=== PATIENT | female | born 1945 | race Caucasian/White ===

== ENCOUNTER 2016-07-27 12:32 | Emergency (ER) | payer MEDICARE ==
--- NOTE | 2016-07-27 13:19 | ER Document Report ---
ED General - General Chief Complaint: Shortness Of Breath Stated Complaint: SHORTNESS OF BREATH Time seen by provider: 13:15 Mode of Arrival: Medic Information source: Patient Notes: This is a pleasant 70-year-old female with a history of morbid obesity,VTE( Coumadin), CHF (metolazone, bumetanide (, diabetes (metformin), hypertension ( atenolol,), dyslipidemia, hypothyroidism. The patient is brought in by ambulance because of dyspnea on exertion, cough, shortness of breath, increased swelling over the last 2 weeks progressively getting worse. TRAVEL OUTSIDE OF THE [place] IN LAST 30 DAYS: No - HPI Onset: Last week Onset/Duration: Gradual Quality of pain: No pain Severity: None Pain Level: Denies Associated symptoms: Nonproductive cough, Shortness of breath. denies: Chills, Fever Exacerbated by: Denies Relieved by: Denies Similar symptoms previously: Yes Recently seen / treated by doctor: Yes - Related Data Allergies/Adverse Reactions: codeine [Codeine] Allergy (Mild, Unverified 04/05/14 19:52) VOMITING Past Medical History - General Information source: Patient - Social History Smoking Status: Current Every Day Smoker Cigarette use (# per day): Yes - pack and a half a day Chew tobacco use (# tins/day): No Smoking Education Provided: No Frequency of alcohol use: None Drug Abuse: None Lives with: Family Family History: Reviewed & Not Pertinent Patient has suicidal ideation: No Patient has homicidal ideation: No - Past Medical History Cardiac Medical History: Reports: Hx Hypertension Pulmonary Medical History: Reports: Hx COPD, Other - Obstructive sleep apnea EENT Medical History: Reports: None Neurological Medical History: Reports: None Endocrine Medical History: Reports: None Renal/ Medical History: Denies: Hx Peritoneal Dialysis Malignancy Medical History: Reports: None GI Medical History: Reports: None Musculoskeltal Medical History: Reports None Skin Medical History: Reports None Psychiatric Medical History: Reports: None Traumatic Medical History: Reports: None Infectious Medical History: Reports: None Past Surgical History: Reports: Hx Orthopedic Surgery, Hx Tonsillectomy Review of Systems - Review of Systems Constitutional: denies: Chills, Fever EENT: No symptoms reported Cardiovascular: No symptoms reported Respiratory: See HPI Gastrointestinal: No symptoms reported Genitourinary: No symptoms reported Female Genitourinary: No symptoms reported Musculoskeletal: No symptoms reported Skin: See HPI Hematologic/Lymphatic: No symptoms reported Neurological/Psychological: No symptoms reported Physical Exam - Vital signs Vitals: Resp Pulse Ox 33 H 93 07/27/16 13:06 07/27/16 13:06 Notes: Physical exam: GENERAL: Pleasant 70-year-old female, alert and oriented 3, no acute distress. HEAD: Atraumatic, normocephalic. EYES: Pupils equal round and reactive to light, extraocular movements intact, sclera anicteric, conjunctiva are normal. ENT: TMs normal, nares patent, oropharynx clear without exudates. Moist mucous membranes. NECK: Normal range of motion, supple LUNGS: Decreased breath sounds bilaterally Breasts: Patient does have some dependent edema to the left breast, no erythema or tenderness. HEART: Regular rate and rhythm without murmurs, rubs or gallops. ABDOMEN: Soft, nontender, normoactive bowel sounds. No guarding, no rebound. No masses appreciated. EXTREMITIES: Nonpitting edema in the lower extremities with chronic vascular changes to the lower extremities. NEUROLOGICAL: Cranial nerves II through XII grossly intact. Normal speech, normal gait. PSYCH: Normal mood, normal affect. SKIN: Warm, Dry, normal turgor, no rashes or lesions noted. Course - Re-evaluation Re-evalutation: 07/27/16 18:41 I discussed case with Dr. Mcdaniels: He did recommend some IV Lasix in the emergency room and is willing to see the patient tomorrow in his office. Given the heart rate which is a little on the low side, we will cut the atenolol in half. Also , the Coumadin level was a slight bit high and we will hold that for 2 days. 07/27/16 18:44 Note: The patient does have a heart rate of 55. It looks like she's had some bradycardia in the past at night during her obstructive sleep apnea study. We will reduce the atenolol in half to allow the heart rate to come up a little bit more and maybe that will improve her energy. I think much of the swelling that she's having on the left side is because she sleeps predominantly on her left side. She is doing well after the IV Lasix and has gone to the bathroom. I've given her the instructions and told her to come back if she has any problems. - Vital Signs Vital signs: Temp Pulse Resp BP Pulse Ox 98.3 F 54 L 27 H 111/94 H 82 L 07/27/16 13:10 07/27/16 13:10 07/27/16 16:01 07/27/16 16:00 07/27/16 16:01 - Laboratory Result Diagrams: 07/27/16 13:10 07/27/16 13:10 Laboratory results interpreted by me: 07/27/16 07/27/16 07/27/16 13:10 13:10 13:10 RBC 5.59 H Hgb 17.9 H Hct 57.5 H MCV 103 H MCHC 31.2 L RDW 17.0 H Plt Count 98 L Lymphocytes % 12.6 L PT VBG pH VBG pCO2 Potassium 5.5 H Carbon Dioxide 31 H BUN 54 H Creatinine 1.46 H Est GFR ( Amer) 43 L Est GFR (Non-Af Amer) 35 L NT-Pro-B Natriuret Pep 8880 H Total Protein 5.8 L Albumin 3.2 L 07/27/16 07/27/16 13:10 13:10 RBC Hgb Hct MCV MCHC RDW Plt Count Lymphocytes % PT 43.4 H VBG pH 7.25 L VBG pCO2 74.2 H* Potassium Carbon Dioxide BUN Creatinine Est GFR ( Amer) Est GFR (Non-Af Amer) NT-Pro-B Natriuret Pep Total Protein Albumin - Diagnostic Test Radiology reviewed: Image reviewed, Reports reviewed - Chest x-ray shows cardiomegaly. It is limited due to the patient's body habitus. - EKG Interpretation by Me Rhythm: A.Fib - EKG shows atrial fibrillation with a ventricular rate of 55, there is low voltage. Discharge - Discharge Clinical Impression: dyspnea, OBSTRUCT SLEEP APNEA Condition: Stable Disposition: HOME, SELF-CARE Additional Instructions: Recommendations: Dr. Mcdaniels would like to see you in the office tomorrow the day after. He wants you to cut the Atenolol in half to 50 mg twice daily. He also wants you to not take the warfarin (Coumadin) for 2 days. Your Coumadin level was 4.3 (a bit on the high side). Continue all other medicines. Return to the emergency room for worsening symptoms. Referrals: NATALIA COX MD [Primary Care Provider] - Follow up tomorrow
[2016-07-27 13:36] LABS: ABSOLUTE BASOPHILS # (AUTO) 0.1 10^3/uL (0.0-0.2); ABSOLUTE EOSINOPHILS # (AUTO) 0.1 10^3/uL (0.0-0.6); ABSOLUTE MONOCYTES (AUTO) 0.5 10^3/uL (0.1-1.4); ABSOLUTE NEUT (AUTO) 5.9 10^3/uL (1.7-8.2); BASOPHILS % (AUTO) 1.1 % (0-2); EOSINOPHILS % (AUTO) 1.8 % (0-6); HEMATOCRIT 57.5 % (36.0-47.0); HEMOGLOBIN 17.9 g/dL (12.0-15.5); HGB HCT DIFFERENCE -3.8; LYMPHOCYTES % (AUTO) 12.6 % (13-45); MEAN CORPUSCULAR HGB CONC 31.2 g/dL (32.0-36.0); MEAN CORPUSCULAR VOLUME 103 fl (80-97); RED BLOOD COUNT 5.59 10^6/uL (3.72-5.28); SEGMENTED NEUTROPHILS % (AUTO) 77.5 % (42-78); WHITE BLOOD COUNT 7.6 10^3/uL (4.0-10.5)
[2016-07-27 13:37] LABS: VENOUS BLOOD BASE EXCESS 1.3 mmol/L; VENOUS BLOOD HCO3 31.8 mmol/L (20-32); VENOUS BLOOD PH 7.25 (7.30-7.42)
[2016-07-27 13:41] LABS: PROTHROMBIN TIME 43.4 SEC (11.4-15.4)
[2016-07-27 13:47] LABS: VENOUS BLOOD PCO2 74.2 mmHg (35-63)
[2016-07-27 13:53] LABS: ALANINE AMINOTRANSFERASE 20 U/L (9-52); ALBUMIN 3.2 g/dL (3.5-5.0); ALKALINE PHOSPHATASE 112 U/L (38-126); ANION GAP 11 (5-19); ASPARTATE AMINO TRANSFERASE 14 U/L (14-36); BILIRUBIN,TOTAL 0.7 mg/dL (0.2-1.3); BLOOD UREA NITROGEN 54 mg/dL (7-20); CALCIUM 8.7 mg/dL (8.4-10.2); CARBON DIOXIDE 31 mmol/L (22-30); CHLORIDE 101 mmol/L (98-107); CREATINE KINASE 30 U/L (30-135); CREATININE RESULT 1.46 mg/dL (0.52-1.25); GLUCOSE 95 mg/dL (75-110); POTASSIUM 5.5 mmol/L (3.6-5.0); SODIUM 142.8 mmol/L (137-145); TOTAL PROTEIN 5.8 g/dL (6.3-8.2)
[2016-07-27 14:05] LABS: CREATINE KINASE MB 1.29 ng/mL (<4.55)
[2016-07-27 14:09] LABS: TROPONIN I < 0.012 ng/mL
[2016-07-27] MEDS ORDERED: IPRATROPIUM/ALBUTEROL 0.5-2.5 MG/3 ML AMPUL NEB ONE (16:20)
[2016-07-27] MEDS ORDERED: FUROSEMIDE INJ/PF 40 MG/4 ML SDV IV ONE ×2 (16:28)
--- NOTE | 2016-07-27 18:01 | EKG REPORT ---
SEVERITY:- ABNORMAL ECG - ATRIAL FIBRILLATION RIGHT AXIS DEVIATION LOW VOLTAGE THROUGHOUT BORDERLINE T ABNORMALITIES, ANTERIOR LEADS : Confirmed by: Clem Dougherty MD 27-Jul-2016 18:00:48
[2016-07-27 19:12] VITALS: BP 120/74
== END 2016-07-27 19:13 | disposition home or self-care (01) ==
LOC: ER 12:32
DX: G47.33 Obstructive sleep apnea (adult) (pediatric) (principal); I11.0 Hypertensive heart disease with heart failure; I50.9 Heart failure, unspecified; J44.9 Chronic obstructive pulmonary disease, unspecified; I48.91 Unspecified atrial fibrillation; R06.02 Shortness of breath; R05 Cough; R06.09 Other forms of dyspnea; R60.9 Edema, unspecified; E11.9 Type 2 diabetes mellitus without complications; I74.9 Embolism and thrombosis of unspecified artery; F17.210 Nicotine dependence, cigarettes, uncomplicated; E66.01 Morbid (severe) obesity due to excess calories; Z68.42 Body mass index [BMI] 45.0-49.9, adult; Z79.01 Long term (current) use of anticoagulants; Z79.84 Long term (current) use of oral hypoglycemic drugs; Z79.899 Other long term (current) drug therapy; Z88.5 Allergy status to narcotic agent
CPT/HCPCS: 93005; 94640; 99285; 96374; 36415; 82553; 82550; 83605; 85025; 85610; 80053; 84484; 82803; 83880; 71010; 93010; J1940; A9270; J7620

== ENCOUNTER 2016-10-14 17:25 | Inpatient (IN) | payer MEDICARE ==
--- NOTE | 2016-10-14 17:41 | ER Document Report ---
ED Respiratory Problem - General Stated Complaint: SHORTNESS OF BREATH Mode of Arrival: Medic Information source: Patient, Emergency Med Personnel TRAVEL OUTSIDE OF THE [place] IN LAST 30 DAYS: No - HPI Patient complains to provider of: Short of breath Onset: Yesterday Duration: Continuous Initiating Event: No: Allergy, Aspiration/Choking, Exertion, Exposure to chemicals, Exposure to dust, Exposure to fumes, Exposure to mold, Exposure to smoke, Out of meds Quality of pain: No pain Severity: Mild Context: Hx CHF, Hx COPD. denies: Recent cardiac event, Recent surgery, Smoker Short of Breath: Mild Chest pain/discomfort: Center Cough: Nonproductive Sputum amount: None Associated symptoms: Chest pain/discomfort - SORENESS, Chills, Cough - GAGS W/ COUGH, Fever - SUBJECTIVE FEVER, Short of breath, Sweaty, Other - WEAKNESS, UNABLE TO AMBULATE EVEN W/ ASSIST Similar symptoms previously: Yes Recently seen / treated by doctor: Yes - DR. Laboy Notes: Patient was seen by her PCP last week, who told her daily dose of Lasix for several days. She resumed taking her usual dose 2 days ago. - Related Data Allergies/Adverse Reactions: codeine [Codeine] Allergy (Mild, Unverified 04/05/14 19:52) VOMITING Past Medical History - General Information source: Patient - Social History Smoking Status: Never Smoker Cigarette use (# per day): No Chew tobacco use (# tins/day): No Smoking Education Provided: No Frequency of alcohol use: None Drug Abuse: None Lives with: Friend Family History: Reviewed & Not Pertinent Patient has suicidal ideation: No Patient has homicidal ideation: No - Past Medical History Cardiac Medical History: Reports: Hx Atrial Fibrillation, Hx Hypertension Pulmonary Medical History: Reports: Hx COPD EENT Medical History: Reports: None Neurological Medical History: Reports: None Endocrine Medical History: Reports: None Renal/ Medical History: Reports: None. Denies: Hx Peritoneal Dialysis Malignancy Medical History: Reports: None GI Medical History: Reports: None Musculoskeltal Medical History: Reports Hx Arthritis Psychiatric Medical History: Reports: None Past Surgical History: Reports: Hx Orthopedic Surgery, Hx Tonsillectomy Review of Systems - Review of Systems Constitutional: Chills, Fever - SUBJECTIVE, Weakness EENT: No symptoms reported Cardiovascular: Dyspnea Respiratory: Cough, Short of breath Gastrointestinal: No symptoms reported Genitourinary: No symptoms reported Female Genitourinary: Post menopausal Musculoskeletal: No symptoms reported Skin: No symptoms reported Neurological/Psychological: No symptoms reported -: Yes All other systems reviewed and negative Physical Exam - Vital signs Vitals: Temp Pulse Resp BP Pulse Ox 100.2 F 56 L 24 H 105/58 L 88 L 10/14/16 18:02 10/14/16 18:02 10/14/16 18:02 10/14/16 18:02 10/14/16 18:02 Interpretation: Bradycardic, Hypoxic, Tachypneic, Febrile - "LOW GRADE" - General General appearance: Appears well, Alert In distress: None - HEENT Head: Normocephalic Eyes: Normal Conjunctiva: Normal Ears: Normal Nasal: Normal Mouth/Lips: Normal Mucous membranes: Normal Pharynx: Normal Neck: Normal, Other - OBESE - Respiratory Respiratory status: No respiratory distress, Tachypnea Chest status: Nontender Breath sounds: Rales - BILAT. DEPENDENT AREAS - Cardiovascular Rhythm: Irregularly irregular, Bradycardia - Abdominal Inspection: Morbidly Obese - Extremities General upper extremity: Normal inspection General lower extremity: Edema - 2+ BILAT.. No: Normal inspection - VENOUS STASIS DERMATITIS BILAT. - Neurological Neuro grossly intact: Yes Cognition: Normal Orientation: AAOx4 - Psychological Associated symptoms: Normal affect, Normal mood - Skin Skin Temperature: Warm Skin Moisture: Dry Skin Color: Normal Skin Turgor: Elastic Skin irregularity: other - VENOUS STASIS DERMATITIS, BILAT. L.E.'s Course - Vital Signs Vital signs: Temp Pulse Resp BP Pulse Ox 100.2 F 56 L 24 H 105/58 L 88 L 10/14/16 18:02 10/14/16 18:02 10/14/16 18:02 10/14/16 18:02 10/14/16 18:02 - Laboratory Result Diagrams: 10/14/16 18:00 10/14/16 18:00 Laboratory results interpreted by me: 10/14/16 10/14/16 10/14/16 18:00 18:00 18:00 WBC 13.0 H RDW 17.6 H Plt Count 83 L Seg Neuts % (Manual) 89 H Lymphocytes % (Manual) 4 L Abs Neuts (Manual) 11.6 H PT Sodium 133.9 L Potassium 3.2 L Chloride 86 L Carbon Dioxide 32 H BUN 64 H Est GFR ( Amer) 53 L Est GFR (Non-Af Amer) 44 L Glucose 134 H Total Bilirubin 1.4 H Direct Bilirubin 0.6 H NT-Pro-B Natriuret Pep 32192 H Total Protein 5.9 L Albumin 3.3 L Urine Protein Urine Urobilinogen Urine Ascorbic Acid 10/14/16 10/14/16 18:00 19:25 WBC RDW Plt Count Seg Neuts % (Manual) Lymphocytes % (Manual) Abs Neuts (Manual) PT 44.7 H Sodium Potassium Chloride Carbon Dioxide BUN Est GFR ( Amer) Est GFR (Non-Af Amer) Glucose Total Bilirubin Direct Bilirubin NT-Pro-B Natriuret Pep Total Protein Albumin Urine Protein 100 H Urine Urobilinogen 2.0 H Urine Ascorbic Acid 40 H - Diagnostic Test Radiology reviewed: Image reviewed, Reports reviewed - EKG Interpretation by [place] EKG shows normal: abnormal: Sinus rhythm Rate: Bradycardia Rhythm: A.Fib Voltage: Decreased voltage, Throughout P Waves: Absent When compared to previous EKG there are: No significant change - Consults DR. KAPLAN Time consulted: 20:40 Consulted provider: will come to ER Discharge - Discharge Clinical Impression: Hypoxemia, Hypokalemia Congestive heart failure Qualifiers: Congestive heart failure type: unspecified congestive heart failure type Congestive heart failure chronicity: acute on chronic Qualified Code(s): I50.9 - Heart failure, unspecified Condition: Fair Disposition: ADMITTED INPATIENT Admitting Provider: Hospitalist Unit Admitted: Telemetry
[2016-10-14 18:18] LABS: HEMATOCRIT 46.1 % (36.0-47.0); HEMOGLOBIN 15.2 g/dL (12.0-15.5); HGB HCT DIFFERENCE -0.5; MEAN CORPUSCULAR HEMOGLOBIN 30.7 pg (27.0-33.4); MEAN CORPUSCULAR VOLUME 93 fl (80-97); RED BLOOD COUNT 4.96 10^6/uL (3.72-5.28); RED CELL DISTRIBUTION WIDTH 17.6 % (11.5-14.0)
[2016-10-14 18:33] LABS: BASOPHILS % (MANUAL) 0 % (0-2); EOSINOPHILS % (MANUAL) 0 % (0-6); LYMPHOCYTES % (MANUAL) 4 % (13-45); TOTAL CELLS COUNTED 100
[2016-10-14 18:36] LABS: ANISOCYTOSIS 1+; POLYCHROMASIA SLIGHT; TOXIC GRANULATION SLIGHT
[2016-10-14 18:38] LABS: ALANINE AMINOTRANSFERASE 21 U/L (9-52); ALBUMIN 3.3 g/dL (3.5-5.0); ALKALINE PHOSPHATASE 111 U/L (38-126); ANION GAP 16 (5-19); ASPARTATE AMINO TRANSFERASE 23 U/L (14-36); BILIRUBIN,DIRECT 0.6 mg/dL (0.0-0.4); BILIRUBIN,TOTAL 1.4 mg/dL (0.2-1.3); BLOOD UREA NITROGEN 64 mg/dL (7-20); CALCIUM 8.9 mg/dL (8.4-10.2); CARBON DIOXIDE 32 mmol/L (22-30); CHLORIDE 86 mmol/L (98-107); CREATINE KINASE 37 U/L (30-135); CREATININE RESULT 1.21 mg/dL (0.52-1.25); GLUCOSE 134 mg/dL (75-110); MAGNESIUM 1.8 mg/dL (1.6-2.3); POTASSIUM 3.2 mmol/L (3.6-5.0); SODIUM 133.9 mmol/L (137-145); TOTAL PROTEIN 5.9 g/dL (6.3-8.2)
[2016-10-14 18:51] LABS: TROPONIN I 0.029 ng/mL
[2016-10-14 18:52] LABS: CREATINE KINASE MB < 0.22 ng/mL (<4.55)
[2016-10-14] MEDS ORDERED: FUROSEMIDE INJ/PF 100 MG/10 ML SDV IV ONE (19:12)
[2016-10-14] MEDS ORDERED: POTASSIUM CHLORIDE 10 MEQ TABLET.SA PO ONE (19:12)
[2016-10-14 19:44] LABS: APPEARANCE,URINE SLIGHTLY-CLOUDY; BILIRUBIN,URINE NEGATIVE (NEGATIVE); GLUCOSE, URINE NEGATIVE (NEGATIVE); KETONES,URINE NEGATIVE (NEGATIVE); LEUKOCYTE ESTERASE,URINE NEGATIVE (NEGATIVE); NITRITE,URINE NEGATIVE (NEGATIVE); PROTEIN,URINE 100 mg/dL (NEGATIVE); URINE SPECIFIC GRAVITY 1.013
[2016-10-14 20:06] LABS: PROTHROMBIN TIME 44.7 SEC (11.4-15.4)
--- NOTE | 2016-10-14 22:05 | EKG REPORT ---
SEVERITY:- ABNORMAL ECG - ATRIAL FIBRILLATION, V-RATE 51-65 RBBB AND LPFB : Confirmed by: Denisha Espinal MD 14-Oct-2016 22:04:50
[2016-10-14] MEDS ORDERED: POTASSIUM CHLORIDE 20 MEQ/15 ML UDCUP PO ONE (22:14)
[2016-10-14] MEDS ORDERED: ALBUTEROL SULFATE 0.083% NEB 2.5 MG/3 ML AMPUL NEB PRN (22:21)
[2016-10-14] MEDS ORDERED: GUAIFENESIN SYRP 200 MG/10 ML UDC PO PRN (22:21)
[2016-10-14] MEDS ORDERED: NICOTINE 21 MG/24 HR PATCH.TD24 TD PRN (22:35)
--- NOTE | 2016-10-14 22:47 | PDOC H&P ---
History of Present Illness Admission Date/PCP: 10/14/16 21:12 NATALIA COX, Patient complains of: SOB History of Present Illness: MARIANO HENRY is a 71 year old morbidly obese female, with reported noncompliance according to primary care provider's office notes, copy of which are reviewed, along with underlying congestive heart failure, uncertain if systolic and/or diastolic, nonhome O2 dependent COPD, obstructive sleep apnea, with CPAP not having been ordered as of yet, according to patient, atrial fibrillation, along with history of DVT, on chronic Coumadin, hypothyroidism, hyperlipidemia, chronic venous stasis disease of bilateral lower extremities, and arthritis who presents to the emergency room for evaluation of possible 24- hour history of progressive shortness of breath, in particular with much of any exertion. There has been no chest or abdominal pain, diarrhea or dysuria. She's had shaking chills intermittently over the last 2 days, with fever to 101.5, along with increased sputum production, yellow in color. No antibiotic use or hospitalization over the last 3 months. Over the last week, she doubled her Lasix dose to 40 mg twice a day due to weight gain and retaining fluid. Resumed her usual 40 mg daily dose 2 days ago. Patient has been discussed with emergency room physician who evaluated the patient. . Laboratory results are listed in [facility] and are reviewed. X-ray summary results are listed below, with full report(s) reviewed. . EKG reviewed. And compared to a tracing from July 27 of this year. Social history/personal habits: Single. No children. 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 One and a half packs of cigarettes per day. Fifth of scotch per week. No illicit drug use. Allergies/adverse reactions are listed in [facility] and are reviewed. Home medications Home medications initially autopopulated into [employer] may not accurately reflect patient's true medications, dosages, and/or frequencies. Unfortunately, patient uncertain of all her medications/dosages/frequencies. REVIEW OF SYSTEMS: Constitutional: See history and present illness. Eyes: Wears glasses. ENT: No swallowing problems or complaints. Partial hearing loss. Pulmonary: See history and present illness. Cardiovascular: No current complaints, including chest pain. Gastrointestinal: No current complaints, including nausea or vomiting. Skin: Chronic venous stasis changes, bilateral lower extremities. Hematologic: Easy bruising. Neurologic: Chronic numbness and tingling of her lower extremities. Musculoskeletal: Joint pain from arthritis. Psychiatric: No current complaints, including anxiety or depression. Endocrine: No current complaints, including polyuria. Genitourinary: No current complaints, including dysuria. PHYSICAL EXAMINATION: 5 feet 5 inches tall. 133.4 kg. BMI 48.9 kg/m. Blood pressure 135/75. Pulse 52 and regular. 94% saturation on 2 L oxygen per nasal cannula. Temp 100.2 earlier; skin feels normothermic at present. Morbidly obese otherwise well-developed female appearing approximately her stated age. Pleasant awake alert and cooperative. No obvious distress other than perhaps mildly anxious. A rather stoic individual. Skin is warm and dry. No grossly obvious evidence of rash in areas of skin examined. No subcutaneous nodules palpated. Chronic venous stasis changes extending from just below the knee through the dorsum of her feet bilaterally. No evidence of cellulitis. She does have a small slightly raised nodule on the upper anteromedial aspect of her left calf, approximately 3 x 6 mm, mobile, non- tender, without expressible discharge. States it has been there for "quite some time." ENT: Hearing grossly normal to normal conversation. Tongue midline on protrusion pink and slightly moist. Eyes: No scleral icterus. Pupils equal and reactive to light at 4 mm. [place] conjunctivae. Neck is supple and nontender to gentle active range of motion and palpation. Midline trachea. No palpable thyroid nodule mass enlargement or tenderness. Lymphatic: No palpable cervical or clavicular nodes. Neck and lymphatic exams limited by patient body habitus. Psychiatric: Reasonable insight into acute and chronic medical issues. Oriented to time location and why here. Lungs: Auscultation reveals clear and equal breath sounds bilaterally. No use of accessory respiratory muscles. Cardiovascular: Heart regular rate and rhythm, without gallop murmur or rub. No carotid or abdominal aortic bruits. Slight bilateral symmetric nonpitting calf ankle and pedal edema. Faintly palpable dorsalis pedis pulses. Abdomen:soft, rather obese, nontender with positive bowel sounds. Unable to adequately evaluate abdomen for masses or organomegaly due to Body habitus Extremities: Feet are warm and dry. No calf tenderness to compression. See comments under "skin" above Neurologic: Moves upper extremities grossly normally. Patellar reflexes absent. Absent Babinski. Light touch is decreased at feet, a chronic finding according to patient.. Dorsiflexion and plantarflexion of feet 5 / 5 and symmetric. Past Medical History Cardiac Medical History: Reports: Atrial Fibrillation, Congestive Heart Failure , DVT, Hyperlipidema, Hypertension Denies: Pulmonary Embolism Pulmonary Medical History: Reports: Chronic Obstructive Pulmonary Disease (COPD) , Sleep Apnea EENT Medical History: Reports: None Neurological Medical History: Reports: None Denies: Hemorrhagic CVA, Ischemic CVA, Seizures Endocrine Medical History: Reports: None, Hypothyroidism Denies: Diabetes Mellitus Type 1, Diabetes Mellitus Type 2, Hyperthyroidism Renal/ Medical History: Reports: None Malignancy Medical History: Reports: None GI Medical History: Reports: None Denies: Cirrhosis, Hepatitis, Peptic Ulcer Disease Musculoskeltal Medical History: Reports: Arthritis Psychiatric Medical History: Reports: None, Alcohol Dependency, Tobacco Dependency Denies: Depression, General Anxiety Disorder, Substance Abuse Infectious Medical History: Denies: Clostridium Difficile, Hepatitis B, Hepatitis C, Methicillin- Resistant Staph Aureus Past Surgical History Past Surgical History: Reports: Orthopedic Surgery, Tonsillectomy Social History Information Source: Patient, Emergency Med Personnel, [facility] Records Lives with: Friend Smoking Status: Current Every Day Smoker Frequency of Alcohol Use: Heavy Drugs: None - Advance Directive Resuscitation Status: Full Code Surrogate healthcare decision maker:: Her 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-in 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 and 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 Olivia De La Cruz Family History Family History: Reviewed & Not Pertinent Parental Family History Reviewed: Yes Children Family History Reviewed: NA Sibling(s) Family History Reviewed.: Yes Medication/Allergy Home Medications: Aspirin [Aspirin EC] 81 mg PO DAILY 10/15/16 Atenolol [Tenormin 50 mg Tablet] 50 mg PO DAILY 10/15/16 Atorvastatin Calcium [Lipitor 40 mg Tablet] 40 mg PO DAILY 10/15/16 Furosemide [Lasix] 40 mg PO BID 10/15/16 Gabapentin [Neurontin 300 mg Capsule] 300 mg PO BID 10/15/16 Hydrocortisone/Oatmeal/Aloe/E [Hydrocortisone 1% Cream] 28.4 gm TP BID 10/15/16 Levothyroxine Sodium [Synthroid 0.05 mg Tablet] 0.05 mg PO DAILY 10/15/16 Levothyroxine Sodium [Synthroid 0.1 mg Tablet] 0.1 mg PO DAILY 10/15/16 Metolazone [Zaroxolyn 5 Mg Tablet] 5 mg PO NOON 10/15/16 Potassium Chloride [Klor-Con 10 Meq Tablet.sa] 20 meq PO BID 10/15/16 Warfarin Sodium [Coumadin 5 mg Tablet] 5 mg PO DAILY 10/15/16 Allergies/Adverse Reactions: codeine [Codeine] Adverse Reaction (Mild, Unverified 10/14/16 22:11) VOMITING morphine Adverse Reaction (Verified 10/14/16 22:11) oxycodone [From Percocet] Adverse Reaction (Verified 10/14/16 22:11) prednisone Adverse Reaction (Verified 10/14/16 22:11) Physical Exam Vital Signs: Temp Pulse Resp BP Pulse Ox 100.2 F 56 L 18 135/75 H 93 10/14/16 18:02 10/14/16 18:02 10/14/16 20:00 10/14/16 21:46 10/14/16 21:46 Results Impressions: Chest X-Ray 10/14/16 17:44 IMPRESSION: CARDIAC ENLARGEMENT. MILD VASCULAR CONGESTION. Assessment & Plan - Diagnosis (1) Tobacco dependency Is this a current diagnosis for this admission?: YesPlan: . When necessary Nicotine patch. (2) Alcohol dependence Qualifiers: Substance use status: uncomplicated Qualified Code(s): F10.20 - Alcohol dependence, uncomplicated Is this a current diagnosis for this admission?: YesPlan: Daily multivitamin, thiamine, and folic acid. Observe for evidence of alcohol withdrawal. (3) CHF exacerbation Qualifiers: Congestive heart failure type: unspecified congestive heart failure type Qualified Code(s): I50.9 - Heart failure, unspecified Is this a current diagnosis for this admission?: YesPlan: Parenteral Lasix. Cardiac diet. Further workup at discretion of primary care provider. Repeat troponin. (4) Elevated LFTs Is this a current diagnosis for this admission?: YesPlan: Uncertain etiology. Perhaps due to underlying alcohol use, and/or congestive heart failure. Repeat chem 12. (5) Hypokalemia Is this a current diagnosis for this admission?: YesPlan: Potassium supplementation, along with follow-up chemistry. (6) Leukocytosis Qualifiers: Leukocytosis type: unspecified Qualified Code(s): D72.829 - Elevated white blood cell count, unspecified Is this a current diagnosis for this admission?: YesPlan: Uncertain etiology, but suspect due to underlying suspected COPD exacerbation. Follow-up CBC with differential. (7) Supratherapeutic INR Is this a current diagnosis for this admission?: YesPlan: Hold Coumadin. Follow-up PT/INR. (8) COPD exacerbation Is this a current diagnosis for this admission?: YesPlan: Patient will be admitted under COPD exacerbation protocol. Incentive spirometry twice a day. Scheduled DuoNeb's. PRN albuterol nebs Antibiotics will consist of intravenous Zithromax, along with Rocephin.. I strongly encouraged patient to notify staff should patient feel that respiratory status is worsening. Patient is a full code. I have strongly encouraged patient not to get out of bed without notifying staff , , to avoid a fall with injury. Knee high SCDs for DVT prophylaxis, ; with patient on systemic anticoagulation, no need for Lovenox or heparin at this point in time. Impression and plans were discussed with patient, who concurs. Time spent in evaluation and management of patient: 68 minutes. (9) Atrial fibrillation Qualifiers: Atrial fibrillation type: chronic Qualified Code(s): I48.2 - Chronic atrial fibrillation Is this a current diagnosis for this admission?: YesPlan: Hemodynamically stable at present. Resume home medications as appropriate once these have been determined and reviewed. (10) CKD (chronic kidney disease), stage III Is this a current diagnosis for this admission?: Yes (11) Thrombocytopenia Is this a current diagnosis for this admission?: YesPlan: Suspect due at least partially due to her alcohol use. Follow-up CBC. - Inpatient Certification Based on my medical assessment, after consideration of the patient's comorbidities, presenting symptoms, or acuity I expect that the services needed warrant INPATIENT care.: Yes I certify that my determination is in accordance with my understanding of Medicare's requirements for reasonable and necessary INPATIENT services [42 CFR 412.3e].: Yes Medical Necessity: Need Close Monitoring Due to Risk of Patient Decompensation, Need For Continuous Telemetry Monitoring, Need for Nebulizer Therapy and Monitoring of Response, Need for IV Antibiotics, Risk of Complication if Not Cared For in Hospital, Risk of Diagnosis Which Will Require Inpatient Eval/Care/ Monitoring Post Hospital Care: D/C or Transfer Summary
[2016-10-14] MEDS ORDERED: CEFTRIAXONE 1 GM/D5W RTU 1 GM/50 ML RTUPB IV SCH (23:00)
[2016-10-14] MEDS ORDERED: AZITHROMYCIN 500 MG in DEXTROSE 5%-WATER 250 ML IV SCH (23:00)
[2016-10-15 07:15] LABS: HEMATOCRIT 44.8 % (36.0-47.0); HEMOGLOBIN 14.6 g/dL (12.0-15.5); MEAN CORPUSCULAR HEMOGLOBIN 30.4 pg (27.0-33.4); MEAN CORPUSCULAR HGB CONC 32.5 g/dL (32.0-36.0); MEAN CORPUSCULAR VOLUME 94 fl (80-97); RED CELL DISTRIBUTION WIDTH 17.3 % (11.5-14.0); WHITE BLOOD COUNT 13.4 10^3/uL (4.0-10.5)
[2016-10-15 07:29] LABS: PROTHROMBIN TIME 42.2 SEC (11.4-15.4)
[2016-10-15 07:44] LABS: ALANINE AMINOTRANSFERASE 27 U/L (9-52); ALBUMIN 3.2 g/dL (3.5-5.0); ALKALINE PHOSPHATASE 101 U/L (38-126); ANION GAP 14 (5-19); ASPARTATE AMINO TRANSFERASE 21 U/L (14-36); BILIRUBIN,DIRECT 0.6 mg/dL (0.0-0.4); BILIRUBIN,TOTAL 1.4 mg/dL (0.2-1.3); BLOOD UREA NITROGEN 65 mg/dL (7-20); CALCIUM 8.9 mg/dL (8.4-10.2); CARBON DIOXIDE 38 mmol/L (22-30); CHLORIDE 86 mmol/L (98-107); CREATININE RESULT 1.36 mg/dL (0.52-1.25); GLUCOSE 115 mg/dL (75-110); POTASSIUM 3.4 mmol/L (3.6-5.0); SODIUM 137.9 mmol/L (137-145); TOTAL PROTEIN 5.7 g/dL (6.3-8.2)
[2016-10-15 07:52] LABS: ANISOCYTOSIS 2+; BAND NEUTROPHILS % (MANUAL) 1 % (3-5); BASOPHILS % (MANUAL) 1 % (0-2); EOSINOPHILS % (MANUAL) 0 % (0-6); HYPOCHROMASIA SLIGHT; LYMPHOCYTES % (MANUAL) 4 % (13-45); POLYCHROMASIA SLIGHT; TOTAL CELLS COUNTED 100; TOXIC GRANULATION SLIGHT
--- NOTE | 2016-10-15 08:42 | PDOC PROGRESS REPORT ---
Subjective Progress Note for:: 10/15/16 Subjective:: The patient states to feel the same. She is still very short of breath. She could not tolerate see Pap last night because of claustrophobia. She states that she has been running fever at home and that is the reason why she came in because of sputum and fever. Physical Exam Vital Signs: Temp Pulse Resp BP Pulse Ox 99.3 F 68 24 H 119/60 92 10/15/16 04:00 10/15/16 04:00 10/15/16 04:00 10/15/16 04:00 10/15/16 04:00 Intake & Output 10/14/16 10/15/16 10/16/16 06:59 06:59 06:59 Intake Total 3 Balance 3 Weight 124.4 kg General appearance: PRESENT: morbidly obese, severe distress Head exam: PRESENT: atraumatic Eye exam: PRESENT: conjunctival injection Neck exam: ABSENT: carotid bruit Respiratory exam: PRESENT: accessory muscle use, rales, rhonchi, tachypnea Cardiovascular exam: PRESENT: irregular rhythm Pulses: PRESENT: +1 pedal pulses bilateral Vascular exam: PRESENT: other GI/Abdominal exam: PRESENT: distended, soft Extremities exam: PRESENT: pedal edema, tenderness Musculoskeletal exam: PRESENT: tenderness Neurological exam: PRESENT: alert, awake Skin exam: PRESENT: vesicles, other Results Laboratory Results: 10/15/16 06:53 10/15/16 06:53 10/15/16 10/15/16 06:53 06:53 WBC 13.4 H RBC 4.80 Hgb 14.6 Hct 44.8 MCV 94 MCH 30.4 MCHC 32.5 RDW 17.3 H Plt Count 76 L Seg Neutrophils % Not Reportable Lymphocytes % Not Reportable Monocytes % Not Reportable Eosinophils % Not Reportable Basophils % Not Reportable Absolute Neutrophils Not Reportable Absolute Lymphocytes Not Reportable Absolute Monocytes Not Reportable Absolute Eosinophils Not Reportable Absolute Basophils Not Reportable Sodium 137.9 Potassium 3.4 L Chloride 86 L Carbon Dioxide 38 H Anion Gap 14 BUN 65 H Creatinine 1.36 H Est GFR ( Amer) 46 L Est GFR (Non-Af Amer) 38 L Glucose 115 H Calcium 8.9 Total Bilirubin 1.4 H AST 21 ALT 27 Alkaline Phosphatase 101 Total Protein 5.7 L Albumin 3.2 L 10/15/16 01:40 Troponin I 0.034 Impressions: Chest X-Ray 10/14/16 17:44 IMPRESSION: CARDIAC ENLARGEMENT. MILD VASCULAR CONGESTION. Assessment & Plan - Diagnosis (1) Recent upper respiratory tract infection Is this a current diagnosis for this admission?: YesPlan: Blood cultures showing gram-negative rods. We'll switch to imipenem (2) Bacteremia due to Gram-negative bacteria Is this a current diagnosis for this admission?: YesPlan: We'll start imipenem (3) CHF (congestive heart failure) Qualifiers: Congestive heart failure type: unspecified congestive heart failure type Congestive heart failure chronicity: acute on chronic Qualified Code(s): I50.9 - Heart failure, unspecified Is this a current diagnosis for this admission?: YesPlan: We will repeat EKG. Adjust diuretics. Consult cardiology (4) Leukocytosis Qualifiers: Leukocytosis type: unspecified Qualified Code(s): D72.829 - Elevated white blood cell count, unspecified Is this a current diagnosis for this admission?: YesPlan: Repeat labs and continue antibiotics (5) Thrombocytopenia Is this a current diagnosis for this admission?: YesPlan: Stable (6) CKD (chronic kidney disease), stage III Is this a current diagnosis for this admission?: YesPlan: Possibly secondary to diuretics (7) Tobacco dependency Is this a current diagnosis for this admission?: YesPlan: Presently on nicotine patch (8) Supratherapeutic INR Is this a current diagnosis for this admission?: YesPlan: We'll continue holding Coumadin (9) Anticoagulated on Coumadin Plan: Recheck PT/INR (10) Elevated LFTs Is this a current diagnosis for this admission?: YesPlan: Possibly secondary to bacteremia and sepsis (11) Sepsis due to Gram negative bacteria Plan: We will start imipenem
[2016-10-15] MEDS: IPRATROPIUM/ALBUTEROL 0.5-2.5 MG/3 ML AMPUL NEB SCH ×3 (08:56→21:30)
[2016-10-15] MEDS: FOLIC ACID 1 MG TABLET PO SCH (09:12)
[2016-10-15] MEDS: METOLAZONE 5 MG TABLET PO SCH (09:13)
[2016-10-15] MEDS: THIAMINE HCL 100 MG TABLET PO SCH (09:13)
[2016-10-15] MEDS: MULTIVITAMIN TABLET PO SCH (09:13)
[2016-10-15] MEDS: POTASSIUM CHLORIDE 10 MEQ TABLET.SA PO SCH ×2 (09:14→22:38)
[2016-10-15] MEDS ORDERED: FUROSEMIDE INJ/PF 40 MG/4 ML SDV IV ONE (10:00)
[2016-10-15 10:37] LABS: TROPONIN I 0.046 ng/mL
[2016-10-15 10:42] LABS: CREATINE KINASE MB < 0.22 ng/mL (<4.55)
[2016-10-15] MEDS: IMIPENEM/CILASTATIN SODIUM 500 MG in NORMAL SALINE 100 ML IV SCH ×2 (12:13→17:41)
[2016-10-15] MEDS: FUROSEMIDE INJ/PF 100 MG/10 ML SDV IV SCH ×2 (14:19→22:33)
[2016-10-15] MEDS: ACETAMINOPHEN 325 MG TABLET PO PRN (16:51)
--- NOTE | 2016-10-15 20:57 | PDOC CONSULTATION ---
Consultation Consult Date: 10/15/16 Attending physician:: STAR KAPLAN Consult reason:: Shortness of breath, CHF History of Present Illness Admission Date/PCP: 10/14/16 22:13 NATALIA COX, Patient complains of: Shortness of breath History of Present Illness: MARIANO HENRY is a 71 year old morbidly obese female, with reported noncompliance according to primary care providers office notes, copy of which are reviewed, along with underlying congestive heart failure, uncertain if systolic and/or diastolic, on O2 dependent COPD, obstructive sleep apnea, with CPAP not having been ordered as of yet, according to patient, to fibrillation, along with history of DVT, on chronic Coumadin, hypothyroidism, hyperlipidemia, chronic venous stasis disease of bilateral lower extremities, and arthritis who presents to the emergency room for evaluation of possible 24-hour history of progressive shortness of breath, in particular with much of any exertion. There has been no chest or abdominal pain, diarrhea or dysuria. She's had shaking chills intermittently over the last 2 days, with fever to 101.5, along with increased sputum production, yellow in color. No antibiotic use or hospitalization over the last 3 months. Over the last week, she doubled her Lasix dose to 40 mg twice a day due to weight gain and retaining fluid. Returned her usual 40 mg daily dose 2 days ago. Patient does describe history of blood clot in the left leg in 2004. However she denies any history of blood clots in the lungs. Past Medical History Cardiac Medical History: Reports: Atrial Fibrillation, Congestive Heart Failure , DVT, Hyperlipidema, Hypertension Denies: Pulmonary Embolism Pulmonary Medical History: Reports: Chronic Obstructive Pulmonary Disease (COPD) , Sleep Apnea EENT Medical History: Reports: None Neurological Medical History: Reports: None Denies: Hemorrhagic CVA, Ischemic CVA, Seizures Endocrine Medical History: Reports: None, Hypothyroidism Denies: Diabetes Mellitus Type 1, Diabetes Mellitus Type 2, Hyperthyroidism Renal/ Medical History: Reports: None Malignancy Medical History: Reports: None GI Medical History: Reports: None Denies: Cirrhosis, Hepatitis, Peptic Ulcer Disease Musculoskeltal Medical History: Reports: Arthritis Psychiatric Medical History: Reports: None, Alcohol Dependency, Tobacco Dependency Denies: Depression, General Anxiety Disorder, Substance Abuse Infectious Medical History: Denies: Clostridium Difficile, Hepatitis B, Hepatitis C, Methicillin- Resistant Staph Aureus Past Surgical History Past Surgical History: Reports: Orthopedic Surgery, Tonsillectomy Social History Information Source: Patient Lives with: Friend Smoking Status: Current Every Day Smoker Cigarettes Packs Per Day: 1.5 Frequency of Alcohol Use: Heavy Drugs: None - Advance Directive Resuscitation Status: Full Code Family History Family History: Reviewed & Not Pertinent Parental Family History Reviewed: Yes Children Family History Reviewed: Yes Sibling(s) Family History Reviewed.: Yes Medication/Allergy Home Medications: Aspirin [Aspirin EC] 81 mg PO DAILY 10/15/16 Atenolol [Tenormin 50 mg Tablet] 50 mg PO DAILY 10/15/16 Atorvastatin Calcium [Lipitor 40 mg Tablet] 40 mg PO DAILY 10/15/16 Furosemide [Lasix] 40 mg PO BID 10/15/16 Gabapentin [Neurontin 300 mg Capsule] 300 mg PO BID 10/15/16 Hydrocortisone/Oatmeal/Aloe/E [Hydrocortisone 1% Cream] 28.4 gm TP BID 10/15/16 Levothyroxine Sodium [Synthroid 0.05 mg Tablet] 0.05 mg PO DAILY 10/15/16 Levothyroxine Sodium [Synthroid 0.1 mg Tablet] 0.1 mg PO DAILY 10/15/16 Metolazone [Zaroxolyn 5 Mg Tablet] 5 mg PO NOON 10/15/16 Potassium Chloride [Klor-Con 10 Meq Tablet.sa] 20 meq PO BID 10/15/16 Warfarin Sodium [Coumadin 5 mg Tablet] 5 mg PO DAILY 10/15/16 Allergies/Adverse Reactions: codeine [Codeine] Adverse Reaction (Mild, Unverified 10/14/16 22:11) VOMITING morphine Adverse Reaction (Verified 10/14/16 22:11) oxycodone [From Percocet] Adverse Reaction (Verified 10/14/16 22:11) prednisone Adverse Reaction (Verified 10/14/16 22:11) Physical Exam Vital Signs: Temp Pulse Resp BP Pulse Ox 100.8 F H 83 26 H 100/70 90 L 10/15/16 17:21 10/15/16 17:21 10/15/16 17:21 10/15/16 17:21 10/15/16 17:21 Intake & Output 10/14/16 10/15/16 10/16/16 06:59 06:59 06:59 Intake Total 3 605 Balance 3 605 Weight 124.4 kg Results Laboratory Results: 10/15/16 06:53 10/15/16 06:53 10/15/16 10/15/16 06:53 06:53 WBC 13.4 H RBC 4.80 Hgb 14.6 Hct 44.8 MCV 94 MCH 30.4 MCHC 32.5 RDW 17.3 H Plt Count 76 L Seg Neutrophils % Not Reportable Lymphocytes % Not Reportable Monocytes % Not Reportable Eosinophils % Not Reportable Basophils % Not Reportable Absolute Neutrophils Not Reportable Absolute Lymphocytes Not Reportable Absolute Monocytes Not Reportable Absolute Eosinophils Not Reportable Absolute Basophils Not Reportable Sodium 137.9 Potassium 3.4 L Chloride 86 L Carbon Dioxide 38 H Anion Gap 14 BUN 65 H Creatinine 1.36 H Est GFR ( Amer) 46 L Est GFR (Non-Af Amer) 38 L Glucose 115 H Calcium 8.9 Total Bilirubin 1.4 H AST 21 ALT 27 Alkaline Phosphatase 101 Total Protein 5.7 L Albumin 3.2 L 10/15/16 10/15/16 10/15/16 01:40 09:56 09:56 Creatine Kinase 46 CK-MB (CK-2) < 0.22 Troponin I 0.034 0.046 EKG Comments: Atrial fibrillation, low voltage QRS complex, no acute ST-T wave changes noted. Impressions: Chest X-Ray 10/14/16 17:44 IMPRESSION: CARDIAC ENLARGEMENT. MILD VASCULAR CONGESTION. Assessment & Plan - Diagnosis (1) CHF (congestive heart failure) Qualifiers: Congestive heart failure type: diastolic Congestive heart failure chronicity: acute on chronic Qualified Code(s): I50.33 - Acute on chronic diastolic (congestive) heart failure Is this a current diagnosis for this admission?: Yes (2) COPD exacerbation Is this a current diagnosis for this admission?: Yes (3) Anticoagulated on Coumadin Is this a current diagnosis for this admission?: Yes (4) Atrial fibrillation Qualifiers: Atrial fibrillation type: chronic Qualified Code(s): I48.2 - Chronic atrial fibrillation Is this a current diagnosis for this admission?: Yes (5) CKD (chronic kidney disease), stage III Is this a current diagnosis for this admission?: Yes (6) Tobacco dependency Is this a current diagnosis for this admission?: Yes - Notes Notes: CHF: This seems mostly right-sided based on echocardiogram report which shows severely dilated right ventricle. Patient also has diastolic dysfunction. Right-sided CHF mostly related to obesity hypoventilation syndrome, COPD, possible thromboembolic disease. Patient however already on Coumadin. At this point will treat patient with diuretics. Oxygenation and noninvasive positive pressure ventilation will help. Patient will benefit immensely from weight loss. COPD exacerbation: Continue antibiotic therapy. Chronic anticoagulation: Continue chronic Coumadin therapy. Atrial fibrillation: Rate seems well controlled. Continue chronic anticoagulation. Chronic kidney disease: It seems stage II of stage III. Tobacco abuse: Patient advised to quit smoking. Obesity: Patient will benefit from weight loss. - Time Time Spent: 30 to 50 Minutes - CODE STATUS was discussed, patient remains full code. Surrogate decision-maker not identified. Multiple medical problems were addressed.More than 50% of the time spent coordinating care, discussing management plans with involved caregivers. Management plans discussed with involved personnels. Medical decision making was of moderate complexity.
[2016-10-15 21:41] LABS: TROPONIN I 0.065 ng/mL
[2016-10-15 21:42] LABS: CREATINE KINASE MB < 0.22 ng/mL (<4.55)
[2016-10-15] MEDS ORDERED: ENOXAPARIN SODIUM INJ 40 MG/0.4 ML DISP.SYRIN SUBCUT SCH (22:00)
[2016-10-16] MEDS: IMIPENEM/CILASTATIN SODIUM 500 MG in NORMAL SALINE 100 ML IV SCH ×3 (00:32→12:35)
[2016-10-16] MEDS: ACETAMINOPHEN 325 MG TABLET PO PRN (03:44)
[2016-10-16 06:27] LABS: PROTHROMBIN TIME 32.1 SEC (11.4-15.4)
[2016-10-16 06:29] LABS: HEMATOCRIT 43.1 % (36.0-47.0); HGB HCT DIFFERENCE -1.1; MEAN CORPUSCULAR HEMOGLOBIN 30.4 pg (27.0-33.4); MEAN CORPUSCULAR HGB CONC 32.4 g/dL (32.0-36.0); MEAN CORPUSCULAR VOLUME 94 fl (80-97); RED CELL DISTRIBUTION WIDTH 17.5 % (11.5-14.0); WHITE BLOOD COUNT 10.2 10^3/uL (4.0-10.5)
[2016-10-16 06:47] LABS: ALBUMIN 2.8 g/dL (3.5-5.0); ALKALINE PHOSPHATASE 86 U/L (38-126); ANION GAP 16 (5-19); ASPARTATE AMINO TRANSFERASE 17 U/L (14-36); BILIRUBIN,TOTAL 1.6 mg/dL (0.2-1.3); BLOOD UREA NITROGEN 82 mg/dL (7-20); CARBON DIOXIDE 32 mmol/L (22-30); CHLORIDE 90 mmol/L (98-107); CREATININE RESULT 1.76 mg/dL (0.52-1.25); GLUCOSE 122 mg/dL (75-110); NEONATAL BILIRUBIN RESULT 0.7 mg/dL (0.1-1.1); SODIUM 138.4 mmol/L (137-145); TOTAL PROTEIN 5.4 g/dL (6.3-8.2)
[2016-10-16 06:48] LABS: ALANINE AMINOTRANSFERASE 29 U/L (9-52)
[2016-10-16] MEDS: FUROSEMIDE INJ/PF 100 MG/10 ML SDV IV SCH ×3 (06:57→16:31)
[2016-10-16] MEDS ORDERED: FUROSEMIDE INJ/PF 40 MG/4 ML SDV IV ONE (07:00)
[2016-10-16] MEDS: IPRATROPIUM/ALBUTEROL 0.5-2.5 MG/3 ML AMPUL NEB SCH ×3 (08:33→19:59)
--- NOTE | 2016-10-16 08:54 | PDOC PROGRESS REPORT ---
Subjective Progress Note for:: 10/16/16 Subjective:: The patient states to feel slightly better. She has tolerated C Pap last night as recommended by the college and career counselor. Unfortunately her creatinine has increased most probably secondary to the diuretic use. Her Iand O was +1000. Physical Exam Vital Signs: Temp Pulse Resp BP Pulse Ox 98.3 F 66 20 105/45 L 93 10/16/16 07:36 10/16/16 08:36 10/16/16 08:36 10/16/16 07:36 10/16/16 08:36 Intake & Output 10/15/16 10/16/16 10/17/16 06:59 06:59 06:59 Intake Total 3 1105 Balance 3 1105 Weight 124.4 kg 125 kg General appearance: PRESENT: mild distress Head exam: PRESENT: atraumatic Eye exam: PRESENT: conjunctiva pink Neck exam: ABSENT: carotid bruit Respiratory exam: PRESENT: crackles Cardiovascular exam: PRESENT: irregular rhythm Pulses: PRESENT: +1 pedal pulses bilateral GI/Abdominal exam: PRESENT: distended, soft Musculoskeletal exam: PRESENT: tenderness Neurological exam: PRESENT: alert, awake Skin exam: PRESENT: other Results Laboratory Results: 10/16/16 05:39 10/16/16 05:39 10/16/16 10/16/16 10/16/16 05:39 05:39 05:39 WBC 10.2 RBC 4.60 Hgb 14.0 Hct 43.1 MCV 94 MCH 30.4 MCHC 32.4 RDW 17.5 H Plt Count 66 L Sodium 138.4 Potassium 4.0 Chloride 90 L Carbon Dioxide 32 H Anion Gap 16 BUN 82 H Creatinine 1.76 H Est GFR ( Amer) 34 L Est GFR (Non-Af Amer) 28 L Glucose 122 H Calcium 9.0 Magnesium 2.0 Total Bilirubin 1.6 H AST 17 ALT 29 Alkaline Phosphatase 86 Total Protein 5.4 L Albumin 2.8 L TSH 1.48 10/15/16 10/15/16 10/15/16 01:40 09:56 09:56 Creatine Kinase 46 CK-MB (CK-2) < 0.22 Troponin I 0.034 0.046 NT-Pro-B Natriuret Pep 10/15/16 10/15/16 10/16/16 20:30 20:30 05:39 Creatine Kinase 38 CK-MB (CK-2) < 0.22 Troponin I 0.065 NT-Pro-B Natriuret Pep 14033 H Impressions: Chest X-Ray 10/14/16 17:44 IMPRESSION: CARDIAC ENLARGEMENT. MILD VASCULAR CONGESTION. Assessment & Plan - Diagnosis (1) Recent upper respiratory tract infection Is this a current diagnosis for this admission?: YesPlan: Blood cultures showing gram-negative rods. We'll switch to imipenem (2) Bacteremia due to Gram-negative bacteria Is this a current diagnosis for this admission?: YesPlan: We'll start imipenem (3) CHF (congestive heart failure) Qualifiers: Congestive heart failure type: diastolic Congestive heart failure chronicity: acute on chronic Qualified Code(s): I50.33 - Acute on chronic diastolic (congestive) heart failure Is this a current diagnosis for this admission?: YesPlan: We will repeat EKG. Adjust diuretics. Consult cardiology (4) Leukocytosis Qualifiers: Leukocytosis type: unspecified Qualified Code(s): D72.829 - Elevated white blood cell count, unspecified Is this a current diagnosis for this admission?: YesPlan: Repeat labs and continue antibiotics (5) Thrombocytopenia Is this a current diagnosis for this admission?: YesPlan: Stable (6) CKD (chronic kidney disease), stage III Is this a current diagnosis for this admission?: YesPlan: The kidney functions seem to be getting worse most probably related to high dose of diuretics. We will consult nephrology (7) Tobacco dependency Is this a current diagnosis for this admission?: Yes (8) Supratherapeutic INR Is this a current diagnosis for this admission?: Yes (9) Anticoagulated on Coumadin Is this a current diagnosis for this admission?: Yes (10) Elevated LFTs Is this a current diagnosis for this admission?: Yes (11) Sepsis due to Gram negative bacteria Plan: We will start imipenem (12) Atrial fibrillation Qualifiers: Atrial fibrillation type: chronic Qualified Code(s): I48.2 - Chronic atrial fibrillation Is this a current diagnosis for this admission?: YesPlan: The atrial fibrillation is rate controlled. Discussed with cardiology the results of the echocardiogram which was consistent with high RV pressures most probably related to pulmonary hypertension (13) Pulmonary hypertension Is this a current diagnosis for this admission?: YesPlan: We'll discuss with pulmonary and cardiology and consider medications for pulmonary hypertension.
[2016-10-16] MEDS: MULTIVITAMIN TABLET PO SCH (09:24)
[2016-10-16] MEDS: METOLAZONE 5 MG TABLET PO SCH (09:24)
[2016-10-16] MEDS: FOLIC ACID 1 MG TABLET PO SCH (09:24)
[2016-10-16] MEDS: POTASSIUM CHLORIDE 10 MEQ TABLET.SA PO SCH ×2 (09:26→21:35)
[2016-10-16] MEDS: THIAMINE HCL 100 MG TABLET PO SCH (09:29)
--- NOTE | 2016-10-16 11:10 | PDOC PROGRESS REPORT ---
Subjective Progress Note for:: 10/16/16 Subjective:: Patient seems to be doing better with gradual improvement. Pt is denying any chest arm or neck discomfort. Patient denying any PND, orthopnea. Patient denied any sustained palpitations, dizziness, syncope, near syncope. Patient denying any fever chills. Patient denying any other significant discomfort. Patient is maintaining atrial fibrillation which is currently persistent. Patient still having some shortness of breath. Patient used noninvasive positive pressure ventilation last night. Review of systems: Rest review of systems negative. Medications: Medications have been reviewed. Physical Exam Vital Signs: Temp Pulse Resp BP Pulse Ox 98.3 F 66 20 105/45 L 93 10/16/16 07:36 10/16/16 08:36 10/16/16 08:36 10/16/16 07:36 10/16/16 08:36 Intake & Output 10/15/16 10/16/16 10/17/16 06:59 06:59 06:59 Intake Total 3 1105 Balance 3 1105 Weight 124.4 kg 125 kg Exam: GENERAL: well-nourished and in no acute distress. Alert and oriented x3 HEAD: Atraumatic, normocephalic. EYES: Pupils equal round and reactive to light, extraocular movements intact, sclera anicteric, conjunctiva are normal. ENT: TMs normal, nares patent, oropharynx clear without exudates. Moist mucous membranes. No oral ulcerations or bleeding gums noted NECK: supple without lymphadenopathy. Trachea is central. No cervical or axillary lymphadenopathy noted. Carotids are 2+, JVD 8-10 CM LUNGS: Respiration seems nonlabored, no significant accessory muscle action noted. Breath sounds clear to auscultation bilaterally and equal noted. No wheezes rales or rhonchi noted. No significant dullness noted on percussion. CHEST: Palpation of the chest wall shows no significant chest wall tenderness. No other significant abnormalities noted. HEART: [employer], No PSH, 1/6 LAMINE aortic area, 1/6 rausch systolic murmur mitral area, no rubs, no gallops. ABDOMEN: Soft, no significant tenderness appreciated, normoactive bowel sounds. No guarding, no rebound. No rigidity noted . No masses appreciated. EXTREMITIES: Pedal pulses are 1-2+, no calf tenderness noted. No clubbing or cyanosis.1-2+ pedal edema noted NEUROLOGICAL: Focused neurological exam showed no significant neurologic deficit. Normal speech, no focal weakness appreciated. PSYCH: Normal mood, normal affect. Judgment and insight within normal limits. SKIN: No significant ecchymosis, rash, ulcerations or signs of pruritus noted. MUSCULOSKELETAL EXAM: No significant joint swelling noted. Results Laboratory Results: 10/16/16 05:39 10/16/16 05:39 10/16/16 10/16/16 10/16/16 05:39 05:39 05:39 WBC 10.2 RBC 4.60 Hgb 14.0 Hct 43.1 MCV 94 MCH 30.4 MCHC 32.4 RDW 17.5 H Plt Count 66 L Sodium 138.4 Potassium 4.0 Chloride 90 L Carbon Dioxide 32 H Anion Gap 16 BUN 82 H Creatinine 1.76 H Est GFR ( Amer) 34 L Est GFR (Non-Af Amer) 28 L Glucose 122 H Calcium 9.0 Magnesium 2.0 Total Bilirubin 1.6 H AST 17 ALT 29 Alkaline Phosphatase 86 Total Protein 5.4 L Albumin 2.8 L TSH 1.48 10/15/16 10/15/16 10/15/16 01:40 09:56 09:56 Creatine Kinase 46 CK-MB (CK-2) < 0.22 Troponin I 0.034 0.046 NT-Pro-B Natriuret Pep 10/15/16 10/15/16 10/16/16 20:30 20:30 05:39 Creatine Kinase 38 CK-MB (CK-2) < 0.22 Troponin I 0.065 NT-Pro-B Natriuret Pep 78363 H Impressions: Chest X-Ray 10/14/16 17:44 IMPRESSION: CARDIAC ENLARGEMENT. MILD VASCULAR CONGESTION. Assessment & Plan - Diagnosis (1) CHF (congestive heart failure) Qualifiers: Congestive heart failure type: diastolic Congestive heart failure chronicity: acute on chronic Qualified Code(s): I50.33 - Acute on chronic diastolic (congestive) heart failure Is this a current diagnosis for this admission?: Yes (2) COPD exacerbation Is this a current diagnosis for this admission?: Yes (3) Anticoagulated on Coumadin Is this a current diagnosis for this admission?: Yes (4) Atrial fibrillation Qualifiers: Atrial fibrillation type: chronic Qualified Code(s): I48.2 - Chronic atrial fibrillation Is this a current diagnosis for this admission?: Yes (5) CKD (chronic kidney disease), stage III Is this a current diagnosis for this admission?: Yes (6) Tobacco dependency Is this a current diagnosis for this admission?: Yes (7) Bacteremia due to Gram-negative bacteria Is this a current diagnosis for this admission?: Yes (8) Pulmonary hypertension Is this a current diagnosis for this admission?: Yes - Notes Notes: Congestive heart failure: Patient feels clinically improved but BNP is higher. This could be related to renal dysfunction. At this point will add spironolactone to the regimen. Consider following renal functions. I'm told by primary care M.D. that mercury cell cleaner has been consulted. COPD exacerbation: Continue bronchodilator therapy and steroid therapy as needed. Chronic anticoagulation: Continue because of atrial fibrillation and prior history of thromboembolism. Chronic kidney disease: Currently stable. Nephrology did follow. Gram-negative bacteremia: Consider switch to another medication such as Cipro as imipenem Alonso has significant sodium load. Pulmonary hypertension: This is severe but most likely related to underlying COPD, obesity hypoventilation syndrome. Patient will benefit from weight loss and regular CPAP therapy. Continue chronic anticoagulation. Atrial fibrillation: This is now persistent. Continue chronic anticoagulation. Rate is reasonably well controlled. - Time Time with patient: Greater than 35 minutes - CODE STATUS was discussed, patient remains full code. Surrogate decision-maker unchanged. Multiple medical problems were addressed.More than 50% of the time spent coordinating care, discussing management plans with involved caregivers. Management plans discussed with involved personnels. Medical decision making was of moderate to high complexity, patient's has multiple severe comorbidities.
[2016-10-16] MEDS ORDERED: LEVOFLOXACIN 500 MG/D5W RTU 500 MG/100 ML RTUPB IV SCH (15:00)
--- NOTE | 2016-10-16 15:35 | PDOC CONSULTATION ---
Consultation Consult Date: 10/16/16 Attending physician:: NATALIA COX Consult reason:: dypsnea History of Present Illness Admission Date/PCP: 10/14/16 22:13 NATALIA COX, History of Present Illness: 71-year-old female complains of cough yellow phlegm nausea without vomiting admits to chills and fevers. She denies hemoptysis her PPD status is negative dates unknown she denies history of chronic lung disease as a child or adolescent. He admits to exposure to passive smoke as a child as well as an adult she herself is smoked 1-1/2-2 packs a day for the last 60 years and continues to smoke. 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 She is has CPAP at home and has long-standing Obstructive sleep apnea. She admits to occasional tightness in her chest, she sleeps on 1- 2 pillows denies any PND occasional nocturnal cough and chronic edema. She has a history of chronic atrial fibrillation. Past Medical History Cardiac Medical History: Reports: Atrial Fibrillation, Congestive Heart Failure , DVT, Hyperlipidema, Hypertension Denies: Pulmonary Embolism Pulmonary Medical History: Reports: Chronic Obstructive Pulmonary Disease (COPD) , Sleep Apnea EENT Medical History: Reports: None Neurological Medical History: Reports: None Denies: Hemorrhagic CVA, Ischemic CVA, Seizures Endocrine Medical History: Reports: None, Hypothyroidism Denies: Diabetes Mellitus Type 1, Diabetes Mellitus Type 2, Hyperthyroidism Renal/ Medical History: Reports: None Malignancy Medical History: Reports: None GI Medical History: Reports: None Denies: Cirrhosis, Hepatitis, Peptic Ulcer Disease Musculoskeltal Medical History: Reports: Arthritis Psychiatric Medical History: Reports: None, Alcohol Dependency, Tobacco Dependency Denies: Depression, General Anxiety Disorder, Substance Abuse Infectious Medical History: Denies: Clostridium Difficile, Hepatitis B, Hepatitis C, Methicillin- Resistant Staph Aureus Past Surgical History Past Surgical History: Reports: Orthopedic Surgery, Tonsillectomy Social History Information Source: Patient Lives with: Friend Smoking Status: Current Every Day Smoker Cigarettes Packs Per Day: 1.5 Number of Years Smokin Passive smoke exposure as: Both Frequency of Alcohol Use: Heavy Drugs: None Do you have pets?: Yes Have you had any respiratory illnesses as a child?: No Have you been exposed to any sick contacts recently?: No Have you had any recent respiratory illnesses?: No Have you travelled outside of [place] in the past 12 months?: No - Advance Directive Resuscitation Status: Full Code Family History Family History: Reviewed & Not Pertinent Parental Family History Reviewed: Yes Children Family History Reviewed: NA Sibling(s) Family History Reviewed.: Yes Medication/Allergy Home Medications: Aspirin [Aspirin EC] 81 mg PO DAILY 10/15/16 Atenolol [Tenormin 50 mg Tablet] 50 mg PO DAILY 10/15/16 Atorvastatin Calcium [Lipitor 40 mg Tablet] 40 mg PO DAILY 10/15/16 Furosemide [Lasix] 40 mg PO BID 10/15/16 Gabapentin [Neurontin 300 mg Capsule] 300 mg PO BID 10/15/16 Hydrocortisone/Oatmeal/Aloe/E [Hydrocortisone 1% Cream] 28.4 gm TP BID 10/15/16 Levothyroxine Sodium [Synthroid 0.05 mg Tablet] 0.05 mg PO DAILY 10/15/16 Levothyroxine Sodium [Synthroid 0.1 mg Tablet] 0.1 mg PO DAILY 10/15/16 Metolazone [Zaroxolyn 5 Mg Tablet] 5 mg PO NOON 10/15/16 Potassium Chloride [Klor-Con 10 Meq Tablet.sa] 20 meq PO BID 10/15/16 Warfarin Sodium [Coumadin 5 mg Tablet] 5 mg PO DAILY 10/15/16 Allergies/Adverse Reactions: codeine [Codeine] Adverse Reaction (Mild, Unverified 10/14/16 22:11) VOMITING morphine Adverse Reaction (Verified 10/14/16 22:11) oxycodone [From Percocet] Adverse Reaction (Verified 10/14/16 22:11) prednisone Adverse Reaction (Verified 10/14/16 22:11) Physical Exam Vital Signs: Temp Pulse Resp BP Pulse Ox 98.3 F 66 20 105/45 L 93 10/16/16 07:36 10/16/16 08:36 10/16/16 08:36 10/16/16 07:36 10/16/16 08:36 Intake & Output 10/15/16 10/16/16 10/17/16 06:59 06:59 06:59 Intake Total 3 1105 Balance 3 1105 Weight 124.4 kg 125 kg General appearance: PRESENT: no acute distress, cooperative, disheveled, morbidly obese Head exam: PRESENT: atraumatic, normocephalic Eye exam: PRESENT: conjunctiva pale, EOMI Mouth exam: PRESENT: dry mucosa, neck supple Teeth exam: PRESENT: other - Upper plates poor dentition lower part of oral cavity Neck exam: ABSENT: carotid bruit, JVD, lymphadenopathy, thyromegaly Respiratory exam: PRESENT: decreased breath sounds, prolonged expiratory phas, rhonchi, symmetrical, unlabored, wheezes Cardiovascular exam: PRESENT: irregular rhythm Pulses: PRESENT: normal radial pulses GI/Abdominal exam: PRESENT: normal bowel sounds, soft. ABSENT: distended, guarding, mass, organolmegaly, rebound, tenderness Rectal exam: PRESENT: deferred Gentrourinary exam: PRESENT: indwelling catheter Extremities exam: PRESENT: +1 edema Neurological exam: PRESENT: alert, awake Psychiatric exam: PRESENT: normal mood Skin exam: PRESENT: dry, warm Results Laboratory Results: 10/16/16 05:39 10/16/16 05:39 10/16/16 10/16/16 10/16/16 05:39 05:39 05:39 WBC 10.2 RBC 4.60 Hgb 14.0 Hct 43.1 MCV 94 MCH 30.4 MCHC 32.4 RDW 17.5 H Plt Count 66 L Sodium 138.4 Potassium 4.0 Chloride 90 L Carbon Dioxide 32 H Anion Gap 16 BUN 82 H Creatinine 1.76 H Est GFR ( Amer) 34 L Est GFR (Non-Af Amer) 28 L Glucose 122 H Calcium 9.0 Magnesium 2.0 Total Bilirubin 1.6 H AST 17 ALT 29 Alkaline Phosphatase 86 Total Protein 5.4 L Albumin 2.8 L TSH 1.48 10/15/16 10/15/16 10/15/16 01:40 09:56 09:56 Creatine Kinase 46 CK-MB (CK-2) < 0.22 Troponin I 0.034 0.046 NT-Pro-B Natriuret Pep 10/15/16 10/15/16 10/16/16 20:30 20:30 05:39 Creatine Kinase 38 CK-MB (CK-2) < 0.22 Troponin I 0.065 NT-Pro-B Natriuret Pep 37976 H Impressions: Chest X-Ray 10/14/16 17:44 IMPRESSION: CARDIAC ENLARGEMENT. MILD VASCULAR CONGESTION. Assessment & Plan - Diagnosis (1) Obstructive sleep apnea Is this a current diagnosis for this admission?: YesPlan: CPAP nightly (2) Obesity hypoventilation syndrome Is this a current diagnosis for this admission?: YesPlan: Check PCO2 on VBG (3) Heme positive stool Is this a current diagnosis for this admission?: YesPlan: Thrombocytopenia elevated INR due to anticoagulation for atrial fibrillation consider GI consult his stools were heme positive (4) Bacteremia due to Gram-negative bacteria Is this a current diagnosis for this admission?: YesPlan: 10/14/16 19:25 Urine Culture - Final Clean Catch Midstream Lactobacillus (Vaginal Mary) 10/14/16 19:08 Blood Culture - Final Blood Pasteurella Multocida 10/14/16 18:00 Blood Culture - Final Blood Pasteurella Multocida (5) CHF (congestive heart failure) Qualifiers: Congestive heart failure type: diastolic Congestive heart failure chronicity: acute on chronic Qualified Code(s): I50.33 - Acute on chronic diastolic (congestive) heart failure Is this a current diagnosis for this admission?: Yes (6) Hypoxemia Plan: Nocturnal trend oximetry (7) Pulmonary hypertension Is this a current diagnosis for this admission?: YesPlan: Patient has multiple reasons for having pulmonary hypertension most current therapies address pulmonary hypertension that is idiopathic prior to any therapy would like to identify or rule out all treatable causes (8) Atrial fibrillation Qualifiers: Atrial fibrillation type: chronic Qualified Code(s): I48.2 - Chronic atrial fibrillation Is this a current diagnosis for this admission?: Yes (9) Thrombocytopenia Is this a current diagnosis for this admission?: YesPlan: Platelet antibodies (10) Tobacco dependency Is this a current diagnosis for this admission?: YesPlan: NicoDerm patch as has been initiated
[2016-10-16 16:25] LABS: VENOUS BLOOD BASE EXCESS 11.7 mmol/L; VENOUS BLOOD HCO3 38.5 mmol/L (20-32); VENOUS BLOOD PCO2 58.2 mmHg (35-63); VENOUS BLOOD PH 7.44 (7.30-7.42)
--- NOTE | 2016-10-16 18:46 | PDOC CONSULTATION ---
Consultation Consult Date: 10/16/16 Consult reason:: Acute congestive heart failure and fluid overload History of Present Illness Admission Date/PCP: 10/14/16 22:13 NATALIA COX, History of Present Illness: Mrs. Mathias is a 71 years old lady with a past medical history of hypertension and morbid obesity right heart failure in the background of sleep apnea and morbid obesity fibrillation comes in with the hospitalist history of progressive shortness of breath over the last 10-14 days and a 2 to three-day history of fever with chills. She has intermittent cough with mucoid expectoration. No history of any hemoptysis or pleuritic-type chest pains . She admits to having an open wound approximately a week ago that she happened to have after she bumped her leg against a door, with some blood oozing. She recalls that the dogs licking of the wound. Blood cultures are now growing Pasteurella multocida. Her antibiotics has been modified to levofloxacin currently. She feels better than when she came in and has had normal fever chills. She has been begun on IV Lasix and that recently when the dose was increased renal functions began to also get worse. I did review her echocardiogram and renal ultrasound. Please refer to those dictation. Past Medical History Cardiac Medical History: Reports: Atrial Fibrillation, DVT, Hyperlipidemia, Hypertension-primary Denies: Pulmonary Embolism Pulmonary Medical History: Reports: Chronic Obstructive Pulmonary Disease (COPD) , Sleep Apnea EENT Medical History: Reports: None Neurological Medical History: Reports: None Denies: Hemorrhagic CVA, Ischemic CVA, Seizures Endocrine Medical History: Reports: None, Hypothyroidism Denies: Diabetes Mellitus Type 1, Diabetes Mellitus Type 2, Hyperthyroidism Renal/ Medical History: Reports: None Malignancy Medical History: Reports: None GI Medical History: Reports: None Denies: Cirrhosis, Hepatitis, Peptic Ulcer Disease Musculoskeltal Medical History: Reports: Arthritis Psychiatric Medical History: Reports: None, Alcohol Dependency, Tobacco Dependency Denies: Depression, General Anxiety Disorder, Substance Abuse Infectious Medical History: Denies: Clostridium Difficile, Hepatitis B, Hepatitis C, Methicillin-resist Staph Aureus Past Surgical History Past Surgical History: Reports: Orthopedic Surgery, Tonsillectomy Social History Lives with: Friend Smoking Status: Current Every Day Smoker Cigarettes Packs Per Day: 1.5 Number of Years Smokin Frequency of Alcohol Use: Heavy Drugs: None - Advance Directive Resuscitation Status: Full Code Family History Parental Family History Reviewed: Yes Children Family History Reviewed: No Sibling(s) Family History Reviewed.: No Medication/Allergy Home Medications: Aspirin [Aspirin EC] 81 mg PO DAILY 10/15/16 Atenolol [Tenormin 50 mg Tablet] 50 mg PO DAILY 10/15/16 Atorvastatin Calcium [Lipitor 40 mg Tablet] 40 mg PO DAILY 10/15/16 Furosemide [Lasix] 40 mg PO BID 10/15/16 Gabapentin [Neurontin 300 mg Capsule] 300 mg PO BID 10/15/16 Hydrocortisone/Oatmeal/Aloe/E [Hydrocortisone 1% Cream] 28.4 gm TP BID 10/15/16 Levothyroxine Sodium [Synthroid 0.05 mg Tablet] 0.05 mg PO DAILY 10/15/16 Levothyroxine Sodium [Synthroid 0.1 mg Tablet] 0.1 mg PO DAILY 10/15/16 Metolazone [Zaroxolyn 5 Mg Tablet] 5 mg PO NOON 10/15/16 Potassium Chloride [Klor-Con 10 Meq Tablet.sa] 20 meq PO BID 10/15/16 Warfarin Sodium [Coumadin 5 mg Tablet] 5 mg PO DAILY 10/15/16 Allergies/Adverse Reactions: codeine [Codeine] Adverse Reaction (Mild, Unverified 10/14/16 22:11) VOMITING morphine Adverse Reaction (Verified 10/14/16 22:11) oxycodone [From Percocet] Adverse Reaction (Verified 10/14/16 22:11) prednisone Adverse Reaction (Verified 10/14/16 22:11) Review of Systems Review of Systems: Constitutional: PRESENT: as per HPI. ABSENT: headache(s), weight gain, weight loss Eyes: ABSENT: visual disturbances Ears: ABSENT: hearing changes Cardiovascular: ABSENT: orthropnea, palpitations Respiratory: ABSENT: hemoptysis Gastrointestinal: ABSENT: abdominal pain, constipation, diarrhea, hematemesis, hematochezia, nausea, vomiting Genitourinary: ABSENT: dysuria, hematuria Musculoskeletal: ABSENT: joint swelling Integumentary: ABSENT: rash, wounds Neurological: ABSENT: abnormal gait, abnormal speech, confusion, dizziness, focal weakness, syncope Psychiatric: ABSENT: anxiety, depression, homicidal ideation, suicidal ideation Endocrine: ABSENT: cold intolerance, heat intolerance, polydipsia, polyuria Hematologic/Lymphatic: ABSENT: easy bleeding, easy bruising, lymphadenopathy Physical Exam Vital Signs: Temp Pulse Resp BP Pulse Ox 98.6 F 67 22 H 103/57 L 92 10/16/16 18:00 10/16/16 18:00 10/16/16 18:00 10/16/16 18:00 10/16/16 18:00 Intake & Output 10/15/16 10/16/16 10/17/16 06:59 06:59 06:59 Intake Total 3 1105 1200 Balance 3 1105 1200 Weight 124.4 kg 125 kg General appearance: PRESENT: no acute distress, morbidly obese Head exam: PRESENT: normocephalic Eye exam: PRESENT: conjunctiva pink, EOMI, PERRLA. ABSENT: nystagmus, scleral icterus Ear exam: PRESENT: normal external ear exam Neck exam: ABSENT: lymphadenopathy, meningismus, tenderness, thyromegaly Respiratory exam: PRESENT: clear to auscultation flory, crackles - Scattered, symmetrical. ABSENT: rhonchi Cardiovascular exam: PRESENT: +S1, +S2, systolic murmur GI/Abdominal exam: PRESENT: distended, normal bowel sounds, soft. ABSENT: firm , guarding, organomegaly, tenderness Extremities exam: PRESENT: pedal edema. ABSENT: calf tenderness, clubbing Neurological exam: PRESENT: alert, awake, oriented to person, oriented to place , oriented to time Skin exam: PRESENT: rash - A venous stasis of both lower extremities she has a wound that seems to be healing on left jim.. ABSENT: erythema, mottled Results Laboratory Results: 10/16/16 05:39 10/16/16 05:39 10/16/16 10/16/16 10/16/16 05:39 05:39 05:39 WBC 10.2 RBC 4.60 Hgb 14.0 Hct 43.1 MCV 94 MCH 30.4 MCHC 32.4 RDW 17.5 H Plt Count 66 L VBG pH VBG pCO2 VBG HCO3 VBG Base Excess Sodium 138.4 Potassium 4.0 Chloride 90 L Carbon Dioxide 32 H Anion Gap 16 BUN 82 H Creatinine 1.76 H Est GFR ( Amer) 34 L Est GFR (Non-Af Amer) 28 L Glucose 122 H Calcium 9.0 Magnesium 2.0 Total Bilirubin 1.6 H AST 17 ALT 29 Alkaline Phosphatase 86 Total Protein 5.4 L Albumin 2.8 L TSH 1.48 Stool Occult Blood 10/16/16 10/16/16 14:07 16:00 WBC RBC Hgb Hct MCV MCH MCHC RDW Plt Count VBG pH 7.44 H VBG pCO2 58.2 VBG HCO3 38.5 H VBG Base Excess 11.7 Sodium Potassium Chloride Carbon Dioxide Anion Gap BUN Creatinine Est GFR ( Amer) Est GFR (Non-Af Amer) Glucose Calcium Magnesium Total Bilirubin AST ALT Alkaline Phosphatase Total Protein Albumin TSH Stool Occult Blood POSITIVE 10/15/16 10/15/16 10/15/16 01:40 09:56 09:56 Creatine Kinase 46 CK-MB (CK-2) < 0.22 Troponin I 0.034 0.046 NT-Pro-B Natriuret Pep 10/15/16 10/15/16 10/16/16 20:30 20:30 05:39 Creatine Kinase 38 CK-MB (CK-2) < 0.22 Troponin I 0.065 NT-Pro-B Natriuret Pep [id number] H Impressions: Chest X-Ray 10/14/16 17:44 IMPRESSION: CARDIAC ENLARGEMENT. MILD VASCULAR CONGESTION. Assessment & Plan - Diagnosis (1) Pasteurella multocida bacteremia Plan: Believe she must have become bacteremic from this organism after the dog licked her open wound. She is currently on levofloxacin and should adequately cover this organism. She seems to be responding well clinically and the resolving leukocytosis (2) CHF (congestive heart failure) Qualifiers: Congestive heart failure type: diastolic Congestive heart failure chronicity: acute on chronic Qualified Code(s): I50.33 - Acute on chronic diastolic (congestive) heart failure Is this a current diagnosis for this admission?: YesPlan: Biventricular. Adjust dosing of Lasix. Currently she looks to be overdiuresis in spite of the fact that she is having shortness of breath this is more likely from pulmonary hypertension than left heart failure. I would recommend titrating down the dose of Lasix and monitoring. (3) Elevated LFTs Is this a current diagnosis for this admission?: YesPlan: Likely combination of biventricular failure and her alcoholic history and sepsis. (4) Hypokalemia Is this a current diagnosis for this admission?: YesPlan: Early on replacement. Another choice would be the use of spironolactone, and I' m going to add that and see how she responds. Would mainly be for a left heart failure and not for the right hot. (5) Obstructive sleep apnea Is this a current diagnosis for this admission?: YesPlan: Advised on compliance with the cpap. (6) Sepsis due to Gram negative bacteria Plan: She has the Pasteurella multocida in her blood obtained from her dog licking an open wound. (7) COPD exacerbation Is this a current diagnosis for this admission?: Yes (8) CKD (chronic kidney disease), stage III Is this a current diagnosis for this admission?: YesPlan: See how she responds to titration of her diuretic regimen. Monitor. Reviewed ultrasound that shows no obstructive nephropathy.
[2016-10-16] MEDS ORDERED: FUROSEMIDE INJ/PF 40 MG/4 ML SDV IV SCH ×2 (22:00)
--- NOTE | 2016-10-16 22:24 | EKG REPORT ---
SEVERITY:- ABNORMAL ECG - ATRIAL FIBRILLATION CONSIDER RIGHT VENTRICULAR HYPERTROPHY CONSIDER ANTERIOR INFARCT : Confirmed by: Denisha Espinal MD 16-Oct-2016 22:24:25
--- NOTE | 2016-10-17 06:08 | EKG REPORT ---
SEVERITY:- ABNORMAL ECG - ATRIAL FIBRILLATION, V-RATE 56-89 LEFT POSTERIOR FASCICULAR BLOCK LOW VOLTAGE THROUGHOUT BORDERLINE T ABNORMALITIES, ANTERIOR LEADS : Confirmed by: Cecilia Fitch 17-Oct-2016 06:08:01
[2016-10-17] MEDS ORDERED: NORMAL SALINE 1000 ML 1,000 ML IV PRN (07:48)
[2016-10-17] MEDS: IPRATROPIUM/ALBUTEROL 0.5-2.5 MG/3 ML AMPUL NEB SCH (08:59)
[2016-10-17] MEDS: CEFTRIAXONE 1 GM/D5W RTU 50 ML IV SCH (09:33)
[2016-10-17] MEDS: MULTIVITAMIN TABLET PO SCH (09:34)
[2016-10-17] MEDS: THIAMINE HCL 100 MG TABLET PO SCH (09:34)
[2016-10-17] MEDS: FOLIC ACID 1 MG TABLET PO SCH (09:34)
[2016-10-17] MEDS ORDERED: METOLAZONE 5 MG TABLET PO SCH (10:00)
[2016-10-17] MEDS ORDERED: SPIRONOLACTONE 25 MG TABLET PO SCH (10:00)
[2016-10-17] MEDS: LEVALBUTEROL HCL NEB 1.25 MG/3 ML AMPUL NEB PRN (14:27)
--- NOTE | 2016-10-17 15:30 | PDOC PROGRESS REPORT ---
Subjective Progress Note for:: 10/17/16 Subjective:: In seen this morning. She overall feels better. No history of chest pain shortness of breath most of nausea vomiting. No history of fever chills. Physical Exam Vital Signs: Temp Pulse Resp BP Pulse Ox 98.3 F 69 20 118/63 95 10/17/16 12:08 10/17/16 12:08 10/17/16 12:08 10/17/16 12:08 10/17/16 12:08 Pulse Oximeter Continuous Start: 10/16/16 15: 36 Freq: RTQ4 Status: Active Document 10/17/16 08:59 HCR (Rec: 10/17/16 11:15 HCR [id number]) Pulse Oximetry Assessment Oxygen Saturation (92-100) 89 Oxygen Flow Rate (L/min) 3 Oxygen Delivery Method Nasal Cannula Equipment Usage Initial Set Up Continuous Pulse Oximeter 24 Hour Charge Charge Now Continuous SpO2 Machine # 3 Intake & Output 10/16/16 10/17/16 10/18/16 06:59 06:59 06:59 Intake Total 1105 2620 Balance 1105 2620 Weight 125 kg 125 kg Cardiovascular exam: PRESENT: +S1, +S2, systolic murmur GI/Abdominal exam: PRESENT: distended, normal bowel sounds, soft. ABSENT: firm , guarding, organomegaly, tenderness Results Laboratory Results: 10/16/16 05:39 10/16/16 05:39 10/16/16 16:00 VBG pH 7.44 H VBG pCO2 58.2 VBG HCO3 38.5 H VBG Base Excess 11.7 10/15/16 10/15/16 10/15/16 01:40 09:56 09:56 Creatine Kinase 46 CK-MB (CK-2) < 0.22 Troponin I 0.034 0.046 NT-Pro-B Natriuret Pep 10/15/16 10/15/16 10/16/16 20:30 20:30 05:39 Creatine Kinase 38 CK-MB (CK-2) < 0.22 Troponin I 0.065 NT-Pro-B Natriuret Pep 13226 H Impressions: Cervical Spine CT 10/17/16 00:00 IMPRESSION: Cervical disc disease. Mild malalignment. Chest X-Ray 10/17/16 07:45 IMPRESSION: Asymmetric edema or pneumonia. No significant change. Assessment & Plan - Diagnosis (1) Pasteurella multocida bacteremia Plan: On levofloxacin and stable. (2) CHF (congestive heart failure) Qualifiers: Congestive heart failure type: diastolic Congestive heart failure chronicity: acute on chronic Qualified Code(s): I50.33 - Acute on chronic diastolic (congestive) heart failure Is this a current diagnosis for this admission?: Yes (3) Elevated LFTs Is this a current diagnosis for this admission?: Yes (4) Hypokalemia Is this a current diagnosis for this admission?: YesPlan: Resolved. (5) Obstructive sleep apnea Is this a current diagnosis for this admission?: Yes (7) COPD exacerbation Is this a current diagnosis for this admission?: Yes (8) CKD (chronic kidney disease), stage III Is this a current diagnosis for this admission?: YesPlan: Clinically dehydrated. Agree with holding off on the Lasix. Monitor labs as was not done this morning.
--- NOTE | 2016-10-17 16:51 | PDOC PROGRESS REPORT ---
Subjective Progress Note for:: 10/17/16 Subjective:: Patient shortness breath is improving. She states she has been having some neck pain for the past couple days. Patient denies fever, chills, headache, new focal weakness, chest pain, abdominal pain, nausea, vomiting, diarrhea, constipation. Physical Exam Vital Signs: Temp Pulse Resp BP Pulse Ox 98.3 F 95 18 118/63 92 10/17/16 12:08 10/17/16 14:27 10/17/16 14:27 10/17/16 12:08 10/17/16 14:27 Pulse Oximeter Continuous Start: 10/16/16 15: 36 Freq: RTQ4 Status: Active Document 10/17/16 12:00 HCR (Rec: 10/17/16 15:37 HCR [email or web address]) Pulse Oximetry Assessment Oxygen Saturation (92-100) 91 Oxygen Flow Rate (L/min) 4 Oxygen Delivery Method Nasal Cannula Equipment Usage Equipment in Use Continuous SpO2 Machine # 3 Intake & Output 10/16/16 10/17/16 10/18/16 06:59 06:59 06:59 Intake Total 1105 2620 Balance 1105 2620 Weight 125 kg 125 kg GENERAL: No acute distress HEENT: Conjunctiva clear, nonicteric, moist mucous membranes, no JVD, midline trachea RESPIRATORY: Clear to auscultation bilaterally, no wheezes, no rhonchi CARDIAC: Regular rate and rhythm, no murmurs/gallops/rubs ABDOMEN: Soft, nondistended, nontender, positive bowel sounds, no rebound, no guarding EXTREMETIES: No edema, cyanosis, clubbing NEUROLOGIC: Alert, oriented to person/place/time, CN's grossly intact, no focal deficits SKIN: No rash, wounds PSYCH: Normal mood, normal affect MUSCULOSKELETAL: Pain with range of motion of cervical spine Results Laboratory Results: 10/16/16 05:39 10/16/16 05:39 10/15/16 10/15/16 10/15/16 01:40 09:56 09:56 Creatine Kinase 46 CK-MB (CK-2) < 0.22 Troponin I 0.034 0.046 NT-Pro-B Natriuret Pep 10/15/16 10/15/16 10/16/16 20:30 20:30 05:39 Creatine Kinase 38 CK-MB (CK-2) < 0.22 Troponin I 0.065 NT-Pro-B Natriuret Pep 24713 H Impressions: Cervical Spine CT 10/17/16 00:00 IMPRESSION: Cervical disc disease. Mild malalignment. Chest X-Ray 10/17/16 07:45 IMPRESSION: Asymmetric edema or pneumonia. No significant change. Assessment & Plan - Diagnosis (1) Sepsis Is this a current diagnosis for this admission?: YesPlan: Secondary to pneumonia and Pasteurella bacteremia. Patient now afebrile with normal white blood count. (2) Pneumonia Is this a current diagnosis for this admission?: YesPlan: Discontinue IV Levaquin. Start IV Rocephin. Blood cultures growing Pasteurella. (3) Pasteurella infection Is this a current diagnosis for this admission?: YesPlan: Patient with Pasteurella bacteremia. Change antibiotics to IV Rocephin. Repeat blood cultures. (4) Acute kidney injury Is this a current diagnosis for this admission?: YesPlan: Likely secondary to overdiuresis. Hold diuretics. Gentle IV fluids. Repeat labs in the morning. (5) Moderate to severe pulmonary hypertension Is this a current diagnosis for this admission?: YesPlan: Cardiology and pulmonary medicine following. Hold diuretics for now secondary to overdiuresis. (6) CHF (congestive heart failure) Qualifiers: Congestive heart failure type: diastolic Congestive heart failure chronicity: acute on chronic Qualified Code(s): I50.33 - Acute on chronic diastolic (congestive) heart failure Is this a current diagnosis for this admission?: YesPlan: Echocardiogram with normal EF, unable to determine diastolic function secondary to atrial fibrillation, severe pulmonary hypertension. Patient currently over diuresed at this time. Hold diuretics. Give gentle IV fluids. (7) Supratherapeutic INR Is this a current diagnosis for this admission?: YesPlan: INR now therapeutic. Resume Coumadin at lower dose of 2.5 mg nightly. (8) Atrial fibrillation Qualifiers: Atrial fibrillation type: chronic Qualified Code(s): I48.2 - Chronic atrial fibrillation Is this a current diagnosis for this admission?: Yes (9) CKD (chronic kidney disease), stage III Is this a current diagnosis for this admission?: Yes (10) Thrombocytopenia Is this a current diagnosis for this admission?: YesPlan: Hold outpatient aspirin therapy. Check heparin induced thrombocytopenia panel. If this worsens we may have to consider discontinuation of anticoagulation. (11) Tobacco dependency Is this a current diagnosis for this admission?: Yes (12) Hypothyroid Is this a current diagnosis for this admission?: YesPlan: Synthroid. (13) COPD (chronic obstructive pulmonary disease) Is this a current diagnosis for this admission?: YesPlan: Discontinue duo nebs due to tremors. Start Xopenex nebulizer treatments when necessary. (14) Neck pain Is this a current diagnosis for this admission?: YesPlan: CT scan of cervical spine shows degenerative changes, no acute process. - Time Time Spent with patient: 35 or more minutes
[2016-10-17] MEDS: WARFARIN SODIUM 2.5 MG TABLET PO SCH (21:13)
[2016-10-17] MEDS: ATORVASTATIN CALCIUM 40 MG TABLET PO SCH (21:13)
[2016-10-17] MEDS: GABAPENTIN 300 MG CAPSULE PO SCH (21:14)
--- NOTE | 2016-10-17 23:53 | PROGRESS NOTE E ---
Progress Note NAME: MARIANO HENRY : 1945 AGE: 71Y DATE: 10/17/2016 ROOM: 407 SUBJECTIVE: The patient is doing much better. It seems that her shortness of breath has improved. There is no PND. There is some orthopnea. She did not use CPAP last night. The patient continues to be in atrial fibrillation and she is well anticoagulated. There is no bleeding. There are no TIA or CVA symptoms. She denies any chest pain or discomfort. There is no ventricular arrhythmia seen. It seems like the patient's atrial fibrillation is persistent. OBJECTIVE: GENERAL: The patient is morbidly obese in no acute distress. VITAL SIGNS: Her temperature is 98.8 degrees Fahrenheit, pulse is 63 per minute, blood pressure is 118/61, respirations are 20 per minute, O2 sats are 93% on 3.5 L of nasal cannula. HEENT: Head is atraumatic, normocephalic. Eyes: Pupils are equal, round, regular and reactive to light and accommodation. Extraocular movements are normal. Sclerae anicteric. Conjunctivae are normal. ENT is negative. NECK: Supple. There is no JVD. Carotids are equal. There is no bruit. There is no cervical or axillary lymphadenopathy. There is no goiter. Carotids are equal without any bruits. There is no JVD. LUNGS: Show dullness in the left base and above that a few crackles. The rest of the lungs show diminished air entry and prolonged expiration. There is no rhonchi or wheezing. HEART: S1, S2 is heard. S1 is of variable intensity. There is no S3 gallop. There is no S4 gallop. There is a systolic murmur in the aortic area and a pansystolic murmur in the mitral area. ABDOMEN: Soft, obese, nontender. There is no hepatosplenomegaly. Bowel sounds are well heard. There is no rigidity or masses appreciated. EXTREMITIES: Pedal pulses are diminished. The femorals are diminished. There are no femoral bruits. There is no clubbing or cyanosis. There is trace pedal edema with chronic venostasis dermatitis present. CENTRAL NERVOUS SYSTEM: The patient awake alert ,oriented X 3 ,with no focal deficits. PSYCHIATRIC: The patient judgment and insight are intact. Her affect is normal. The patient does not appear to be agitated or depressed. The patient's EKG shows atrial fibrillation, left posterior hemiblock, borderline T-wave abnormalities anterior leads, low voltage throughout. The patient's chest x-ray showed a left pleural effusion with air space disease above it. Yesterday the patient's sodium was 134, potassium 4.0, chloride 98, CO2 32. The patient's BUN has jumped up to 82 and creatinine is 1.76 and GFR is reduced to 28 mL, which now is stage 4 acute kidney injury on baseline stage 3 CKD. The patient's albumin is 2.8, total protein is 5.4, NT-pro-BNP is 38,700. TSH is 1.48. These labs were done yesterday. IMPRESSION: 1. SEPSIS SECONDARY TO PASTURELLA INFECTION. The patient is being treated with antibiotics. 2. PNEUMONIA, LEFT BASE WITH EFFUSION. The patient's Levaquin has been discontinued and Rocephin has been started. Blood cultures are growing Pasturella. 3. PASTURELLA INFECTION. Patient with Pasturella bacteremia. Antibiotics have been changed to IV Rocephin. 4. ACUTE KIDNEY DISEASE. It has gone to stage 4 from a GFR of 44 which is stage 3 to a GFR of 28 which is stage 4. This is acute kidney injury thought to be due to over-dialysis. The patient is being gently hydrated and the patient's Lasix is on hold. 5. SEVERE PULMONARY HYPERTENSION WITH RIGHT VENTRICULAR SYSTOLIC PRESSURE OF 70 TO 75. 6. CONGESTIVE HEART FAILURE. At present seems to be compensated. This is ryfxn-cl-jnmiucw diastolic female, although diastolic function could not be determined secondary to atrial fibrillation. Note that the patient at present was overdiuresed and compensated. The diuretics have been held and patient has been given gentle IV fluids. 7. THERAPEUTIC INR ON COUMADIN. No bleeding. 8. ATRIAL FIBRILLATION WITH CONTROLLED VENTRICULAR RESPONSE. Seems to be persistent. The patient is on anticoagulation. Continue atenolol and Coumadin for the atrial fibrillation. 9. THROMBOCYTOPENIA. 10. TOBACCO DEPENDENCY. 11. HYPOTHYROIDISM. 12. COPD. The patient's DuoNeb has been discontinued due to tremors and she is on Xopenex. 13. NECK PAIN. The patient complaining of neck pain for the past couple of days. RECOMMENDATION: Continue current treatment including beta-azalea. The patient also has hyperlipidemia and she is on Lipitor, continue that. Lasix has been held. She is on Neurontin 300 mg p.o. q.12 h. She is on Rocephin 1 gm IV daily. She is on normal saline at 100 mL/hr. Continue Coumadin and beta-azalea. The patient was seen around 9:40 a.m. Twenty-five minutes spent on this patient including review of medications. More than 50% of that time was spent on direct patient care and discussions with her attending physician, Dr. Wheeler, covering for Dr. Álvarez. The patient surrogate healthcare decision-maker is unchanged. Multiple medical problems were addressed with more than 50% of the time spent on coordinating care, directly examining the patient and discussing management plans with involved caregivers and also review of the medications. DICTATING PHYSICIAN: THOMAS BLANCA M.D. [id number] HARDIKY#: [id number] ID: [id number] JOB#: [id number] ACCT: [id number] cc: > MTDD
[2016-10-18] MEDS: LEVOTHYROXINE SODIUM 0.15 MG TABLET PO SCH (05:46)
[2016-10-18 06:42] LABS: HEMATOCRIT 40.5 % (36.0-47.0); HEMOGLOBIN 13.2 g/dL (12.0-15.5); HGB HCT DIFFERENCE -0.9; MEAN CORPUSCULAR HEMOGLOBIN 30.5 pg (27.0-33.4); MEAN CORPUSCULAR HGB CONC 32.6 g/dL (32.0-36.0); MEAN CORPUSCULAR VOLUME 93 fl (80-97); RED BLOOD COUNT 4.34 10^6/uL (3.72-5.28); RED CELL DISTRIBUTION WIDTH 17.2 % (11.5-14.0); WHITE BLOOD COUNT 7.7 10^3/uL (4.0-10.5)
[2016-10-18 06:46] LABS: PROTHROMBIN TIME 24.3 SEC (11.4-15.4)
[2016-10-18 07:05] LABS: ANION GAP 12 (5-19); BLOOD UREA NITROGEN 80 mg/dL (7-20); CALCIUM 8.8 mg/dL (8.4-10.2); CARBON DIOXIDE 38 mmol/L (22-30); CHLORIDE 87 mmol/L (98-107); CREATININE RESULT 1.28 mg/dL (0.52-1.25); GLUCOSE 107 mg/dL (75-110); POTASSIUM 3.3 mmol/L (3.6-5.0); SODIUM 136.7 mmol/L (137-145)
[2016-10-18] MEDS ORDERED: POTASSIUM CHLORIDE 10 MEQ TABLET.SA PO ONE (07:20)
[2016-10-18 08:00] LABS: BAND NEUTROPHILS % (MANUAL) 1 % (3-5); BASOPHILS % (MANUAL) 0 % (0-2); EOSINOPHILS % (MANUAL) 1 % (0-6); LYMPHOCYTES % (MANUAL) 7 % (13-45); TOTAL CELLS COUNTED 100
[2016-10-18] MEDS ORDERED: FUROSEMIDE 40 MG TABLET PO SCH (08:00)
[2016-10-18 08:02] LABS: ANISOCYTOSIS 1+; HYPOCHROMASIA SLIGHT
[2016-10-18] MEDS: ATENOLOL 50 MG TABLET PO SCH (09:44)
[2016-10-18] MEDS: POTASSIUM CHLORIDE 10 MEQ TABLET.SA PO SCH ×2 (09:45→17:35)
[2016-10-18] MEDS: FOLIC ACID 1 MG TABLET PO SCH (09:45)
[2016-10-18] MEDS: CEFTRIAXONE 1 GM/D5W RTU 50 ML IV SCH (09:45)
[2016-10-18] MEDS: GABAPENTIN 300 MG CAPSULE PO SCH ×2 (09:45→21:52)
[2016-10-18] MEDS: MULTIVITAMIN TABLET PO SCH (09:45)
[2016-10-18] MEDS: THIAMINE HCL 100 MG TABLET PO SCH (09:45)
[2016-10-18 12:36] LABS: HLA CLASS 1 ANTIBODY Negative (Negative); IIB/IIIA ANTIBODY Negative (Negative)
--- NOTE | 2016-10-18 15:18 | PROGRESS NOTE E ---
Progress Note NAME: MARIANO HENRY : 1945 AGE: 71Y DATE: 10/18/2016 ROOM: 407 SUBJECTIVE: Note, the patient feels that shortness of breath has improved. There no PND. There is no orthopnea. She did not use the CPAP last night, continues to be in atrial fibrillation and she is anticoagulated. There is no bleeding. There are no TIA or CVA symptoms. There is no chest pain. There is no leg edema. OBJECTIVE: GENERAL: The patient is morbidly obese in no acute distress. VITAL SIGNS: Her temperature is 98.4 degrees Fahrenheit, pulse is 75 per minute, blood pressure is 117/63, respirations are 17 per minute, O2 sats are 91% on 4 L of nasal cannula. HEENT: Head is atraumatic, normocephalic. Eyes: Pupils are equal, round, regular and reactive to light and accommodation. Extraocular movements are normal. Sclera is without any icterus. Conjunctiva is pink. ENT is negative. NECK: Supple. There is no JVD. Carotids are equal. There is no bruit. There is no cervical or axillary lymphadenopathy. There is no goiter. Carotids are equal without any bruits. There is no JVD. LUNGS: Show dullness in the left base with a few crackles. Most likely, the patient is volume overloaded. The rest of the lungs show diminished air entry and prolonged expiration. HEART: S1, S2 is heard. S1 is of variable intensity. There is no S3 gallop. There is no S4 gallop. There is a systolic murmur in the aortic area and a pansystolic murmur in the mitral area. ABDOMEN: Soft, obese, nontender. There is no hepatosplenomegaly. Bowel sounds are well heard. There is no rigidity or masses appreciated. EXTREMITIES: Pedal pulses are diminished. The femorals are diminished. There are no femoral bruits. There is no clubbing or cyanosis. There is trace pedal edema. CENTRAL NERVOUS SYSTEM:The patient awake alert ,oriented X 3 ,with no focal deficits. PSYCHIATRIC: The patient's judgment and insight are intact. Her affect is normal. The patient does not appear to be agitated or depressed. INTAKE/OUTPUT: The patient's intake and output record is not accurate. DIAGNOSTIC DATA: The patient's chest x-ray shows mild vascular congestion and left pleural effusion. The patient's white count is 17,700; hemoglobin is 13.2; hematocrit is 40.5; platelet count is 54,000. The patient's sodium is 136.3, potassium 3.3, chloride is 87, CO2 is 38. The patient's BUN is 80, creatinine is 1.28, GFR is reduced to 41 mL, which is chronic kidney disease stage 3. This is improved from before. On 10/16, her GFR was 28. The patient's pro time is 24.3, INR is 20.8. IMPRESSION: 1. SEPSIS SECONDARY TO PASTURELLA INFECTION. THE PATIENT IS BEING TREATED WITH ANTIBIOTICS. 2. PNEUMONIA, LEFT BASE WITH EFFUSION. 3. MILD CHF, MOST LIKELY DUE TO VOLUME OVERLOAD. NOTE THAT THE IV FLUIDS HAVE BEEN STOPPED. 4. ACUTE KIDNEY DISEASE. IT HAS IMPROVED WITH HYDRATION. NOW, THE PATIENT IS STAGE 3 WITH A GFR OF 41. 5. SEVERE PULMONARY HYPERTENSION WITH RIGHT VENTRICULAR SYSTOLIC PRESSURE OF 70-75. 6. CONGESTIVE HEART FAILURE. AT PRESENT SEEMS TO BE SLIGHTLY DECOMPENSATED. THE PATIENT'S IV FLUIDS HAVE BEEN STOPPED AND THE PATIENT IS ON LASIX 40 MG P.O. Q. MORNING. THIS IS ACUTE ON CHRONIC DIASTOLIC HEART FAILURE, ALTHOUGH DIASTOLIC FUNCTION COULD NOT BE DETERMINED SECONDARY TO ATRIAL FIBRILLATION. NOTE THAT THE PATIENT HAS A LITTLE BIT OF VOLUME OVERLOAD. 7. THERAPEUTIC INR ON COUMADIN. NO BLEEDING. 8. ATRIAL FIBRILLATION WITH CONTROLLED VENTRICULAR RESPONSE. SEEMS TO BE PERSISTENT. THE PATIENT IS ON ANTICOAGULATION. CONTINUE ATENOLOL. 9. THROMBOCYTOPENIA. 10. TOBACCO DEPENDENCY. 11. HYPOTHYROIDISM. 12. COPD. 13. NECK PAIN. THE PATIENT SAID THIS IS BETTER. RECOMMENDATIONS: 1. Continue beta azalea. 2. Continue Coumadin. 3. Note that the Lasix IV drip will be started as p.o. and will see if she needs IV Lasix. 4. Will stop the IV fluids. TIME SPENT: Note that 30 minutes were spent on this patient with more than 50% of the time spent on direct patient care. Medications were reviewed and coordination of care was done along with the other caregivers on the case. The patient is a FULL CODE. She states her friend, Olivia De La Cruz, is her healthcare surrogate power of health care attorney. Thanking you. DICTATING PHYSICIAN: THOMAS BLANCA M.D. [id number] PHY#: [id number] ID: [id number] JOB#: [id number] ACCT: [id number] cc: > MTDD
[2016-10-18 15:52] LABS: ARTERIAL BLOOD BASE EXCESS 12.1 mmol/L; ARTERIAL BLOOD O2 SATURATION 85.3 % (94-98)
[2016-10-18 16:59] LABS: IA/IIA ANTIBODY Negative (Negative)
--- NOTE | 2016-10-18 17:31 | PDOC PROGRESS REPORT ---
Subjective Progress Note for:: 10/17/16 Subjective:: the mask vibrates too much Physical Exam Vital Signs: Temp Pulse Resp BP Pulse Ox 98.8 F 63 20 118/61 93 10/17/16 08:36 10/17/16 08:36 10/17/16 08:36 10/17/16 08:36 10/17/16 08:36 Pulse Oximeter Continuous Start: 10/16/16 15: 36 Freq: RTQ4 Status: Active Document 10/17/16 04:30 CBR (Rec: 10/17/16 05:15 CBR [email or web address]) Pulse Oximetry Assessment Oxygen Saturation (92-100) 93 Oxygen Flow Rate (L/min) 3 Oxygen Delivery Method Nasal Cannula Fraction of Inspired Oxygen (FIO2) 32 Equipment Usage Equipment Standby Continuous SpO2 Machine # N3 Intake & Output 10/16/16 10/17/16 10/18/16 06:59 06:59 06:59 Intake Total 1105 2620 Balance 1105 2620 Weight 125 kg 125 kg General appearance: PRESENT: no acute distress, cooperative, disheveled, morbidly obese Head exam: PRESENT: atraumatic, normocephalic Eye exam: PRESENT: conjunctival injection, conjunctiva pale, EOMI Mouth exam: PRESENT: dry mucosa, neck supple Neck exam: ABSENT: carotid bruit, JVD, lymphadenopathy, thyromegaly Respiratory exam: PRESENT: decreased breath sounds, prolonged expiratory phas, rhonchi, symmetrical, unlabored, wheezes Cardiovascular exam: PRESENT: irregular rhythm Rectal exam: PRESENT: deferred Extremities exam: PRESENT: +2 edema Neurological exam: PRESENT: alert, awake Skin exam: PRESENT: dry, warm Results Laboratory Results: 10/16/16 05:39 10/16/16 05:39 10/16/16 10/16/16 14:07 16:00 VBG pH 7.44 H VBG pCO2 58.2 VBG HCO3 38.5 H VBG Base Excess 11.7 Stool Occult Blood POSITIVE 10/15/16 10/15/16 10/15/16 01:40 09:56 09:56 Creatine Kinase 46 CK-MB (CK-2) < 0.22 Troponin I 0.034 0.046 NT-Pro-B Natriuret Pep 10/15/16 10/15/16 10/16/16 20:30 20:30 05:39 Creatine Kinase 38 CK-MB (CK-2) < 0.22 Troponin I 0.065 NT-Pro-B Natriuret Pep 27540 H Impressions: Chest X-Ray 10/17/16 07:45 IMPRESSION: Asymmetric edema or pneumonia. No significant change. Assessment & Plan - Diagnosis (1) Obstructive sleep apnea Is this a current diagnosis for this admission?: Yes (2) Obesity hypoventilation syndrome Is this a current diagnosis for this admission?: Yes (3) Heme positive stool Is this a current diagnosis for this admission?: Yes (4) Bacteremia due to Gram-negative bacteria Is this a current diagnosis for this admission?: Yes (5) CHF (congestive heart failure) Qualifiers: Congestive heart failure type: diastolic Congestive heart failure chronicity: acute on chronic Qualified Code(s): I50.33 - Acute on chronic diastolic (congestive) heart failure Is this a current diagnosis for this admission?: Yes (7) Pulmonary hypertension Is this a current diagnosis for this admission?: Yes (8) Atrial fibrillation Qualifiers: Atrial fibrillation type: chronic Qualified Code(s): I48.2 - Chronic atrial fibrillation Is this a current diagnosis for this admission?: Yes (9) Thrombocytopenia Is this a current diagnosis for this admission?: Yes (10) Tobacco dependency Is this a current diagnosis for this admission?: Yes
[2016-10-18] MEDS: NYSTATIN TOPICAL POWDER 15 GM TP SCH (17:35)
--- NOTE | 2016-10-18 17:41 | PDOC PROGRESS REPORT ---
Subjective Progress Note for:: 10/18/16 Subjective:: Patient has been drowsy today. She also has several weeks swelling/pain of right elbow > no trauma but leans on elbows frequently. Patient denies fever, chills, headache, new focal weakness, chest pain, abdominal pain, nausea, vomiting, diarrhea, constipation. Physical Exam Vital Signs: Temp Pulse Resp BP Pulse Ox 98.3 F 75 18 120/75 95 10/18/16 16:00 10/18/16 16:00 10/18/16 16:05 10/18/16 16:00 10/18/16 16:05 Pulse Oximeter Continuous Start: 10/16/16 15: 36 Freq: RTQ4 Status: Complete Document 10/17/16 17:00 HCR (Rec: 10/17/16 18:40 HCR [id number]) Pulse Oximetry Assessment Equipment Usage Equipment Discontinued Continuous SpO2 Machine # 3 Intake & Output 10/17/16 10/18/16 10/19/16 06:59 06:59 06:59 Intake Total 2620 3680 400 Balance 2620 3680 400 Weight 125 kg 124.3 kg GENERAL: No acute distress HEENT: Conjunctiva clear, nonicteric, moist mucous membranes, no JVD, midline trachea RESPIRATORY: Clear to auscultation bilaterally, no wheezes, no rhonchi CARDIAC: Regular rate and rhythm, no murmurs/gallops/rubs ABDOMEN: Soft, nondistended, nontender, positive bowel sounds, no rebound, no guarding EXTREMETIES: No edema, cyanosis, clubbing NEUROLOGIC: Alert, oriented to person/place/time, CN's grossly intact, no focal deficits SKIN: No rash, wounds PSYCH: Normal mood, normal affect MUSCULOSKELETAL: Pain with range of motion of cervical spine Results Laboratory Results: 10/18/16 06:32 10/18/16 06:32 10/18/16 10/18/16 10/18/16 06:32 06:32 15:43 WBC 7.7 RBC 4.34 Hgb 13.2 Hct 40.5 MCV 93 MCH 30.5 MCHC 32.6 RDW 17.2 H Plt Count 54 L Seg Neutrophils % Not Reportable Lymphocytes % Not Reportable Monocytes % Not Reportable Eosinophils % Not Reportable Basophils % Not Reportable Absolute Neutrophils Not Reportable Absolute Lymphocytes Not Reportable Absolute Monocytes Not Reportable Absolute Eosinophils Not Reportable Absolute Basophils Not Reportable Carbonic Acid 1.97 H HCO3/H2CO3 Ratio 20:1 ABG pH 7.40 ABG pCO2 65.5 H ABG pO2 51.4 L ABG HCO3 40.0 H ABG O2 Saturation 85.3 L ABG Base Excess 12.1 FiO2 4L Sodium 136.7 L Potassium 3.3 L Chloride 87 L Carbon Dioxide 38 H Anion Gap 12 BUN 80 H Creatinine 1.28 H Est GFR ( Amer) 50 L Est GFR (Non-Af Amer) 41 L Glucose 107 Calcium 8.8 Magnesium 2.0 10/15/16 10/15/16 10/15/16 01:40 09:56 09:56 Creatine Kinase 46 CK-MB (CK-2) < 0.22 Troponin I 0.034 0.046 NT-Pro-B Natriuret Pep 10/15/16 10/15/16 10/16/16 20:30 20:30 05:39 Creatine Kinase 38 CK-MB (CK-2) < 0.22 Troponin I 0.065 NT-Pro-B Natriuret Pep 50116 H Impressions: Cervical Spine CT 10/17/16 00:00 IMPRESSION: Cervical disc disease. Mild malalignment. Elbow X-Ray 10/18/16 00:00 IMPRESSION: Probable bursitis. Chest X-Ray 10/18/16 06:00 IMPRESSION: Stable chest. Assessment & Plan - Diagnosis (1) Acute and chronic respiratory failure with hypercapnia Is this a current diagnosis for this admission?: YesPlan: Likely secondary to COPD, pulmonary hypertension, CHF and sleep apnea. Place patient on BiPAP secondary to somnolence. (2) Sepsis Is this a current diagnosis for this admission?: YesPlan: Secondary to pneumonia and Pasteurella bacteremia. Patient now afebrile with normal white blood count. (3) Pneumonia Is this a current diagnosis for this admission?: YesPlan: Continue IV Rocephin day #2. Blood cultures growing Pasteurella. (4) Pasteurella infection Is this a current diagnosis for this admission?: YesPlan: Patient with Pasteurella bacteremia. Continue IV Rocephin. Repeat blood cultures negative. (5) Acute kidney injury Is this a current diagnosis for this admission?: YesPlan: Likely secondary to overdiuresis. Improved with holding diuretics and gentle hydration. Discontinue IV fluids. Start maintenance dose of Lasix 40 mg daily. (6) Moderate to severe pulmonary hypertension Is this a current diagnosis for this admission?: YesPlan: Cardiology pulmonary medicine following. (7) CHF (congestive heart failure) Qualifiers: Congestive heart failure type: diastolic Congestive heart failure chronicity: acute on chronic Qualified Code(s): I50.33 - Acute on chronic diastolic (congestive) heart failure Is this a current diagnosis for this admission?: YesPlan: Echocardiogram with normal EF, unable to determine diastolic function secondary to atrial fibrillation, severe pulmonary hypertension. Resume Lasix 40 mg daily. (8) Supratherapeutic INR Is this a current diagnosis for this admission?: YesPlan: INR now therapeutic. Restarted Coumadin at lower dose of 2.5 mg nightly on 02/2017. (9) Atrial fibrillation Qualifiers: Atrial fibrillation type: chronic Qualified Code(s): I48.2 - Chronic atrial fibrillation Is this a current diagnosis for this admission?: Yes (10) CKD (chronic kidney disease), stage III Is this a current diagnosis for this admission?: Yes (11) Thrombocytopenia Is this a current diagnosis for this admission?: YesPlan: Hold outpatient aspirin therapy. Check heparin induced thrombocytopenia panel. If this worsens we may have to consider discontinuation of anticoagulation. (12) Tobacco dependency Is this a current diagnosis for this admission?: Yes (13) Hypothyroid Is this a current diagnosis for this admission?: YesPlan: Synthroid. (14) COPD (chronic obstructive pulmonary disease) Is this a current diagnosis for this admission?: YesPlan: Discontinued duo nebs due to tremors. Started Xopenex nebulizer treatments when necessary. (15) Neck pain Is this a current diagnosis for this admission?: YesPlan: CT scan of cervical spine with degenerative changes, no acute injury. (16) Olecranon bursitis, right elbow Is this a current diagnosis for this admission?: YesPlan: Likely traumatic in nature. Supra therapeutic INR also contributing. X-ray negative for acute injury. - Time Time Spent with patient: 35 or more minutes
[2016-10-18] MEDS: ATORVASTATIN CALCIUM 40 MG TABLET PO SCH (21:51)
[2016-10-18] MEDS: WARFARIN SODIUM 2.5 MG TABLET PO SCH (21:52)
[2016-10-19 04:34] LABS: HEMATOCRIT 41.5 % (36.0-47.0); HEMOGLOBIN 13.2 g/dL (12.0-15.5); HGB HCT DIFFERENCE -1.9; MEAN CORPUSCULAR HGB CONC 31.9 g/dL (32.0-36.0); MEAN CORPUSCULAR VOLUME 94 fl (80-97); RED BLOOD COUNT 4.42 10^6/uL (3.72-5.28); RED CELL DISTRIBUTION WIDTH 17.4 % (11.5-14.0); WHITE BLOOD COUNT 9.5 10^3/uL (4.0-10.5)
[2016-10-19 04:49] LABS: PROTHROMBIN TIME 27.4 SEC (11.4-15.4)
[2016-10-19 05:35] LABS: ANION GAP 12 (5-19); BLOOD UREA NITROGEN 80 mg/dL (7-20); CALCIUM 8.9 mg/dL (8.4-10.2); CARBON DIOXIDE 38 mmol/L (22-30); CHLORIDE 90 mmol/L (98-107); CREATININE RESULT 1.41 mg/dL (0.52-1.25); GLUCOSE 109 mg/dL (75-110); POTASSIUM 4.2 mmol/L (3.6-5.0); SODIUM 139.5 mmol/L (137-145)
[2016-10-19] MEDS: LEVOTHYROXINE SODIUM 0.15 MG TABLET PO SCH (05:49)
--- NOTE | 2016-10-19 07:57 | PDOC PROGRESS REPORT ---
Subjective Progress Note for:: 10/19/16 Subjective:: The patient states to feel better. She is not happy about the use of BiPAP. She is more awake alert and oriented today. Discussed the need for out of bed to chair. Physical Exam Vital Signs: Temp Pulse Resp BP Pulse Ox 98.8 F 139 H 13 107/48 L 95 10/19/16 05:58 10/19/16 05:58 10/19/16 05:58 10/19/16 05:58 10/19/16 01:25 Pulse Oximeter Continuous Start: 10/16/16 15: 36 Freq: RTQ4 Status: Complete Document 10/17/16 17:00 HCR (Rec: 10/17/16 18:40 HCR [id number]) Pulse Oximetry Assessment Equipment Usage Equipment Discontinued Continuous SpO2 Machine # 3 Intake & Output 10/18/16 10/19/16 10/20/16 06:59 06:59 06:59 Intake Total 3680 1600 Balance 3680 1600 Weight 124.3 kg 126.4 kg General appearance: PRESENT: mild distress Head exam: PRESENT: atraumatic Eye exam: PRESENT: conjunctival injection Neck exam: ABSENT: carotid bruit Respiratory exam: PRESENT: accessory muscle use, rales, rhonchi Cardiovascular exam: PRESENT: irregular rhythm Pulses: PRESENT: +1 pedal pulses bilateral GI/Abdominal exam: PRESENT: soft Extremities exam: PRESENT: tenderness Additional comments: Tender right elbow with some mild effusion and warmth Musculoskeletal exam: PRESENT: tenderness Results Laboratory Results: 10/19/16 03:49 10/19/16 03:49 10/18/16 10/18/16 10/19/16 06:32 15:43 03:49 WBC 7.7 9.5 RBC 4.34 4.42 Hgb 13.2 13.2 Hct 40.5 41.5 MCV 93 94 MCH 30.5 30.0 MCHC 32.6 31.9 L RDW 17.2 H 17.4 H Plt Count 54 L 70 L Seg Neutrophils % Not Reportable Lymphocytes % Not Reportable Monocytes % Not Reportable Eosinophils % Not Reportable Basophils % Not Reportable Absolute Neutrophils Not Reportable Absolute Lymphocytes Not Reportable Absolute Monocytes Not Reportable Absolute Eosinophils Not Reportable Absolute Basophils Not Reportable Carbonic Acid 1.97 H HCO3/H2CO3 Ratio 20:1 ABG pH 7.40 ABG pCO2 65.5 H ABG pO2 51.4 L ABG HCO3 40.0 H ABG O2 Saturation 85.3 L ABG Base Excess 12.1 FiO2 4L Sodium Potassium Chloride Carbon Dioxide Anion Gap BUN Creatinine Est GFR ( Amer) Est GFR (Non-Af Amer) Glucose Calcium 10/19/16 03:49 WBC RBC Hgb Hct MCV MCH MCHC RDW Plt Count Seg Neutrophils % Lymphocytes % Monocytes % Eosinophils % Basophils % Absolute Neutrophils Absolute Lymphocytes Absolute Monocytes Absolute Eosinophils Absolute Basophils Carbonic Acid HCO3/H2CO3 Ratio ABG pH ABG pCO2 ABG pO2 ABG HCO3 ABG O2 Saturation ABG Base Excess FiO2 Sodium 139.5 Potassium 4.2 Chloride 90 L Carbon Dioxide 38 H Anion Gap 12 BUN 80 H Creatinine 1.41 H Est GFR ( Amer) 44 L Est GFR (Non-Af Amer) 37 L Glucose 109 Calcium 8.9 10/15/16 10/15/16 10/15/16 01:40 09:56 09:56 Creatine Kinase 46 CK-MB (CK-2) < 0.22 Troponin I 0.034 0.046 NT-Pro-B Natriuret Pep 10/15/16 10/15/16 10/16/16 20:30 20:30 05:39 Creatine Kinase 38 CK-MB (CK-2) < 0.22 Troponin I 0.065 NT-Pro-B Natriuret Pep 44905 H 10/19/16 03:49 Creatine Kinase CK-MB (CK-2) Troponin I NT-Pro-B Natriuret Pep 24791 H Impressions: Cervical Spine CT 10/17/16 00:00 IMPRESSION: Cervical disc disease. Mild malalignment. Elbow X-Ray 10/18/16 00:00 IMPRESSION: Probable bursitis. Chest X-Ray 10/18/16 06:00 IMPRESSION: Stable chest. Assessment & Plan - Diagnosis (1) Recent upper respiratory tract infection Is this a current diagnosis for this admission?: YesPlan: Presently on antibiotics (2) Bacteremia due to Gram-negative bacteria Is this a current diagnosis for this admission?: YesPlan: Presently on antibiotic (3) CHF (congestive heart failure) Qualifiers: Congestive heart failure type: diastolic Congestive heart failure chronicity: acute on chronic Qualified Code(s): I50.33 - Acute on chronic diastolic (congestive) heart failure Is this a current diagnosis for this admission?: YesPlan: Very slow improvement because of multiorgan involvement. Acute on chronic kidney disease Atrial fibrillation Acute on chronic congestive heart failure Severe pulmonary hypertension (4) Leukocytosis Qualifiers: Leukocytosis type: unspecified Qualified Code(s): D72.829 - Elevated white blood cell count, unspecified Is this a current diagnosis for this admission?: Yes (5) Thrombocytopenia Is this a current diagnosis for this admission?: Yes (6) CKD (chronic kidney disease), stage III Is this a current diagnosis for this admission?: YesPlan: The kidney functions seem to be getting worse most probably related to high dose of diuretics. We will consult nephrology (7) Tobacco dependency Is this a current diagnosis for this admission?: Yes (8) Supratherapeutic INR Is this a current diagnosis for this admission?: Yes (9) Anticoagulated on Coumadin Is this a current diagnosis for this admission?: Yes (10) Elevated LFTs Is this a current diagnosis for this admission?: Yes (11) Sepsis due to Gram negative bacteria Plan: Presently on antibiotics (12) Atrial fibrillation Qualifiers: Atrial fibrillation type: chronic Qualified Code(s): I48.2 - Chronic atrial fibrillation Is this a current diagnosis for this admission?: YesPlan: Continue atenolol (13) Pulmonary hypertension Is this a current diagnosis for this admission?: YesPlan: We'll discuss with cardiology about possible medications (14) Obesity hypoventilation syndrome Is this a current diagnosis for this admission?: YesPlan: Continue BiPAP (15) Obstructive sleep apnea Is this a current diagnosis for this admission?: YesPlan: Continue BiPAP
[2016-10-19] MEDS: GABAPENTIN 300 MG CAPSULE PO SCH ×2 (11:00→22:46)
[2016-10-19] MEDS: MULTIVITAMIN TABLET PO SCH (11:00)
[2016-10-19] MEDS: POTASSIUM CHLORIDE 10 MEQ TABLET.SA PO SCH ×2 (11:00→18:45)
[2016-10-19] MEDS: FOLIC ACID 1 MG TABLET PO SCH (11:01)
[2016-10-19] MEDS: THIAMINE HCL 100 MG TABLET PO SCH (11:01)
[2016-10-19] MEDS: FUROSEMIDE 40 MG TABLET PO SCH ×2 (11:02→18:45)
[2016-10-19] MEDS: CEFTRIAXONE 1 GM/D5W RTU 50 ML IV SCH (11:03)
[2016-10-19] MEDS: NYSTATIN TOPICAL POWDER 15 GM TP SCH ×2 (11:07→18:46)
[2016-10-19] MEDS: ACETAMINOPHEN 325 MG TABLET PO PRN (11:08)
[2016-10-19] MEDS: ATENOLOL 50 MG TABLET PO SCH (11:11)
--- NOTE | 2016-10-19 11:38 | PDOC CONSULTATION ---
History of Present Illness Admission Date/PCP: 10/14/16 22:13 NATALIA COX, History of Present Illness: MARIANO HENRY is a 71 year old morbidly obese female who was admitted for fever and bacteremia. Orthopedics consult to evaluate her for her right elbow. She states she has a history of elbow bursitis and feels it developed after repetitive leaning onto her elbow within the past 7 days. She states the pain is along the tip of her elbow and worse with palpation and pressure. Denies one specific traumatic event. Denies numbness or tingling. Pain 3/10. Past Medical History Cardiac Medical History: Reports: Atrial Fibrillation, Congestive Heart Failure , DVT, Hyperlipidema, Hypertension Denies: Pulmonary Embolism Pulmonary Medical History: Reports: Chronic Obstructive Pulmonary Disease (COPD) , Sleep Apnea EENT Medical History: Reports: None Neurological Medical History: Reports: None Denies: Hemorrhagic CVA, Ischemic CVA, Seizures Endocrine Medical History: Reports: None, Hypothyroidism Denies: Diabetes Mellitus Type 1, Diabetes Mellitus Type 2, Hyperthyroidism Renal/ Medical History: Reports: None Malignancy Medical History: Reports: None GI Medical History: Reports: None Denies: Cirrhosis, Hepatitis, Peptic Ulcer Disease Musculoskeltal Medical History: Reports: Arthritis Psychiatric Medical History: Reports: None, Alcohol Dependency, Tobacco Dependency Denies: Depression, General Anxiety Disorder, Substance Abuse Infectious Medical History: Denies: Clostridium Difficile, Hepatitis B, Hepatitis C, Methicillin- Resistant Staph Aureus Past Surgical History Past Surgical History: Reports: Orthopedic Surgery, Tonsillectomy Social History Lives with: Friend Smoking Status: Current Every Day Smoker Cigarettes Packs Per Day: 1.5 Number of Years Smokin Frequency of Alcohol Use: Heavy Drugs: None - Advance Directive Resuscitation Status: Full Code Family History Family History: Reviewed & Not Pertinent Parental Family History Reviewed: No Children Family History Reviewed: No Sibling(s) Family History Reviewed.: No Medication/Allergy Home Medications: Aspirin [Aspirin EC] 81 mg PO DAILY 10/15/16 Atenolol [Tenormin 50 mg Tablet] 50 mg PO DAILY 10/15/16 Atorvastatin Calcium [Lipitor 40 mg Tablet] 40 mg PO DAILY 10/15/16 Furosemide [Lasix] 40 mg PO BID 10/15/16 Gabapentin [Neurontin 300 mg Capsule] 300 mg PO BID 10/15/16 Hydrocortisone/Oatmeal/Aloe/E [Hydrocortisone 1% Cream] 28.4 gm TP BID 10/15/16 Levothyroxine Sodium [Synthroid 0.05 mg Tablet] 0.05 mg PO DAILY 10/15/16 Levothyroxine Sodium [Synthroid 0.1 mg Tablet] 0.1 mg PO DAILY 10/15/16 Metolazone [Zaroxolyn 5 Mg Tablet] 5 mg PO NOON 10/15/16 Potassium Chloride [Klor-Con 10 Meq Tablet.sa] 20 meq PO BID 10/15/16 Warfarin Sodium [Coumadin 5 mg Tablet] 5 mg PO DAILY 10/15/16 Allergies/Adverse Reactions: codeine [Codeine] Adverse Reaction (Mild, Unverified 10/14/16 22:11) VOMITING morphine Adverse Reaction (Verified 10/14/16 22:11) oxycodone [From Percocet] Adverse Reaction (Verified 10/14/16 22:11) prednisone Adverse Reaction (Verified 10/14/16 22:11) Review of Systems Constitutional: PRESENT: fever(s). ABSENT: chills, headache(s), weight gain, weight loss Eyes: ABSENT: visual disturbances Ears: ABSENT: hearing changes Cardiovascular: ABSENT: chest pain, dyspnea on exertion, edema, orthropnea, palpitations Respiratory: PRESENT: dyspnea, other - Patient will require CPAP. ABSENT: cough , hemoptysis Gastrointestinal: ABSENT: abdominal pain, constipation, diarrhea, hematemesis, hematochezia, nausea, vomiting Genitourinary: ABSENT: dysuria, hematuria Integumentary: ABSENT: rash, wounds Neurological: ABSENT: abnormal gait, abnormal speech, confusion, dizziness, focal weakness, syncope Psychiatric: ABSENT: anxiety, depression, homidical ideation, suicidal ideation Endocrine: ABSENT: cold intolerance, heat intolerance, menstrual abnormalities, polydipsia, polyuria Hematologic/Lymphatic: PRESENT: easy bruising. ABSENT: easy bleeding, lymphadenopathy Physical Exam Vital Signs: Temp Pulse Resp BP Pulse Ox 98.5 F 63 20 111/52 L 92 10/19/16 08:28 10/19/16 08:30 10/19/16 08:28 10/19/16 08:28 10/19/16 08:30 Pulse Oximeter Continuous Start: 10/16/16 15: 36 Freq: RTQ4 Status: Complete Document 10/17/16 17:00 HCR (Rec: 10/17/16 18:40 HCR [id number]) Pulse Oximetry Assessment Equipment Usage Equipment Discontinued Continuous SpO2 Machine # 3 Intake & Output 10/18/16 10/19/16 10/20/16 06:59 06:59 06:59 Intake Total 3680 1600 Balance 3680 1600 Weight 124.3 kg 126.4 kg General appearance: PRESENT: no acute distress, morbidly obese, well-developed, well-nourished Head exam: PRESENT: atraumatic, normocephalic Eye exam: PRESENT: conjunctiva pink, EOMI, PERRLA. ABSENT: scleral icterus Ear exam: PRESENT: normal external ear exam Mouth exam: PRESENT: moist, tongue midline Neck exam: PRESENT: full ROM. ABSENT: carotid bruit, JVD, lymphadenopathy, thyromegaly Respiratory exam: PRESENT: unlabored Cardiovascular exam: PRESENT: RRR. ABSENT: diastolic murmur, rubs, systolic murmur Pulses: PRESENT: normal radial pulses Vascular exam: PRESENT: normal capillary refill GI/Abdominal exam: PRESENT: normal bowel sounds, soft, other - Nontender. ABSENT: distended, guarding, mass, organolmegaly, rebound, tenderness Rectal exam: PRESENT: deferred Musculoskeletal exam: PRESENT: other - Right elbow: No pain with range of motion. Pain with palpation along the olecranon bursa. Moderate olecranon bursitis present. No erythema. Notable ecchymosis throughout the forearm and hand. No sensory deficits. Tenderness to palpation on the thumb CMC joint with positive CMC adduction, extension and grind test. Neurological exam: PRESENT: alert, awake, oriented to person, oriented to place , oriented to time, oriented to situation, CN II-XII grossly intact. ABSENT: motor sensory deficit Psychiatric exam: PRESENT: appropriate affect, normal mood. ABSENT: homicidal ideation, suicidal ideation Skin exam: PRESENT: dry, intact, warm. ABSENT: cyanosis, rash Results Laboratory Results: 10/19/16 03:49 10/19/16 03:49 10/18/16 10/19/16 10/19/16 15:43 03:49 03:49 WBC 9.5 RBC 4.42 Hgb 13.2 Hct 41.5 MCV 94 MCH 30.0 MCHC 31.9 L RDW 17.4 H Plt Count 70 L Carbonic Acid 1.97 H HCO3/H2CO3 Ratio 20:1 ABG pH 7.40 ABG pCO2 65.5 H ABG pO2 51.4 L ABG HCO3 40.0 H ABG O2 Saturation 85.3 L ABG Base Excess 12.1 FiO2 4L Sodium 139.5 Potassium 4.2 Chloride 90 L Carbon Dioxide 38 H Anion Gap 12 BUN 80 H Creatinine 1.41 H Est GFR ( Amer) 44 L Est GFR (Non-Af Amer) 37 L Glucose 109 Calcium 8.9 10/15/16 10/15/16 10/15/16 01:40 09:56 09:56 Creatine Kinase 46 CK-MB (CK-2) < 0.22 Troponin I 0.034 0.046 NT-Pro-B Natriuret Pep 10/15/16 10/15/16 10/16/16 20:30 20:30 05:39 Creatine Kinase 38 CK-MB (CK-2) < 0.22 Troponin I 0.065 NT-Pro-B Natriuret Pep [id number] H 10/19/16 03:49 Creatine Kinase CK-MB (CK-2) Troponin I NT-Pro-B Natriuret Pep 95429 H Impressions: Cervical Spine CT 10/17/16 00:00 IMPRESSION: Cervical disc disease. Mild malalignment. Elbow X-Ray 10/18/16 00:00 IMPRESSION: Probable bursitis. Chest X-Ray 10/18/16 06:00 IMPRESSION: Stable chest. Status: Image reviewed by me - 2 views of the right elbow study demonstrates increased swelling along the bursa consistent with olecranon bursitis. Mild degenerative changes on the ulnar humeral joint. Assessment & Plan - Diagnosis (1) Olecranon bursitis, right elbow Is this a current diagnosis for this admission?: YesPlan: On examination patient has findings of non-septic olecranon bursitis. We have discussed treatment options including protection with a Josiah bandage to avoid continuous repetitive trauma versus aspiration with corticosteroid injection. At this point because the patient's history of Coumadin use there is concern of possible reaccumulation of the fluid after aspiration but I do feel it is reasonable to proceed with aspiration if the pain is severe enough to warrant. After discussing these options patient elected to proceed with protection and conservative treatment however if her symptoms worsen or do not improve we will consider aspiration.
--- NOTE | 2016-10-19 16:59 | PDOC PROGRESS REPORT ---
Subjective Progress Note for:: 10/19/16 Subjective:: No real change thus far complaining of back and shoulder pain Physical Exam Vital Signs: Temp Pulse Resp BP Pulse Ox 98.9 F 69 18 109/52 L 91 L 10/19/16 12:04 10/19/16 14:13 10/19/16 14:13 10/19/16 12:04 10/19/16 14:13 Pulse Oximeter Continuous Start: 10/16/16 15: 36 Freq: RTQ4 Status: Complete Document 10/17/16 17:00 HCR (Rec: 10/17/16 18:40 HCR [id number]) Pulse Oximetry Assessment Equipment Usage Equipment Discontinued Continuous SpO2 Machine # 3 Intake & Output 10/18/16 10/19/16 10/20/16 06:59 06:59 06:59 Intake Total 3680 1600 Balance 3680 1600 Weight 124.3 kg 126.4 kg General appearance: PRESENT: no acute distress, disheveled, morbidly obese Head exam: PRESENT: atraumatic, normocephalic Eye exam: PRESENT: conjunctiva pale, EOMI Mouth exam: PRESENT: moist, neck supple Neck exam: ABSENT: carotid bruit, JVD, lymphadenopathy, thyromegaly Respiratory exam: PRESENT: crackles, decreased breath sounds, prolonged expiratory phas, rhonchi, symmetrical, unlabored Cardiovascular exam: PRESENT: irregular rhythm Pulses: PRESENT: normal radial pulses GI/Abdominal exam: PRESENT: normal bowel sounds, soft. ABSENT: distended, guarding, mass, organolmegaly, rebound, tenderness Rectal exam: PRESENT: deferred Gentrourinary exam: PRESENT: indwelling catheter Neurological exam: PRESENT: awake Skin exam: PRESENT: dry, warm Results Laboratory Results: 10/19/16 03:49 10/19/16 03:49 10/19/16 10/19/16 03:49 03:49 WBC 9.5 RBC 4.42 Hgb 13.2 Hct 41.5 MCV 94 MCH 30.0 MCHC 31.9 L RDW 17.4 H Plt Count 70 L Sodium 139.5 Potassium 4.2 Chloride 90 L Carbon Dioxide 38 H Anion Gap 12 BUN 80 H Creatinine 1.41 H Est GFR ( Amer) 44 L Est GFR (Non-Af Amer) 37 L Glucose 109 Calcium 8.9 10/15/16 10/15/1610/15/17 01:40 09:56 09:56 Creatine Kinase 46 CK-MB (CK-2) < 0.22 Troponin I 0.034 0.046 NT-Pro-B Natriuret Pep 10/15/16 10/15/16 10/16/16 20:30 20:30 05:39 Creatine Kinase 38 CK-MB (CK-2) < 0.22 Troponin I 0.065 NT-Pro-B Natriuret Pep [id number] H 10/19/16 03:49 Creatine Kinase CK-MB (CK-2) Troponin I NT-Pro-B Natriuret Pep 52570 H Impressions: Cervical Spine CT 10/17/16 00:00 IMPRESSION: Cervical disc disease. Mild malalignment. Elbow X-Ray 10/18/16 00:00 IMPRESSION: Probable bursitis. Chest X-Ray 10/18/16 06:00 IMPRESSION: Stable chest. Assessment & Plan - Diagnosis (1) Obstructive sleep apnea Is this a current diagnosis for this admission?: Yes (2) Obesity hypoventilation syndrome Is this a current diagnosis for this admission?: Yes (3) Heme positive stool Is this a current diagnosis for this admission?: Yes (4) Bacteremia due to Gram-negative bacteria Is this a current diagnosis for this admission?: Yes (5) CHF (congestive heart failure) Qualifiers: Congestive heart failure type: diastolic Congestive heart failure chronicity: acute on chronic Qualified Code(s): I50.33 - Acute on chronic diastolic (congestive) heart failure Is this a current diagnosis for this admission?: Yes (7) Pulmonary hypertension Is this a current diagnosis for this admission?: Yes (8) Atrial fibrillation Qualifiers: Atrial fibrillation type: chronic Qualified Code(s): I48.2 - Chronic atrial fibrillation Is this a current diagnosis for this admission?: Yes (9) Thrombocytopenia Is this a current diagnosis for this admission?: Yes (10) Tobacco dependency Is this a current diagnosis for this admission?: Yes
--- NOTE | 2016-10-19 18:46 | PDOC PROGRESS REPORT ---
Subjective Progress Note for:: 10/19/16 Subjective:: Patient was seen in the hospital today. She feels overall better especially with the introduction of BiPAP. She denies any history of fever or chills. Making good urine output. Labs were reviewed with the patient. Physical Exam Vital Signs: Temp Pulse Resp BP Pulse Ox 98.7 F 72 20 115/63 91 L 10/19/16 16:00 10/19/16 16:00 10/19/16 16:00 10/19/16 16:00 10/19/16 16:00 Pulse Oximeter Continuous Start: 10/16/16 15: 36 Freq: RTQ4 Status: Complete Document 10/17/16 17:00 HCR (Rec: 10/17/16 18:40 HCR [id number]) Pulse Oximetry Assessment Equipment Usage Equipment Discontinued Continuous SpO2 Machine # 3 Intake & Output 10/18/16 10/19/16 10/20/16 06:59 06:59 06:59 Intake Total 3680 1600 Balance 3680 1600 Weight 124.3 kg 126.4 kg General appearance: PRESENT: no acute distress Respiratory exam: PRESENT: clear to auscultation flory, decreased breath sounds. ABSENT: crackles, rhonchi Cardiovascular exam: PRESENT: +S1, +S2, systolic murmur GI/Abdominal exam: PRESENT: distended, normal bowel sounds, soft. ABSENT: firm , guarding, organomegaly, tenderness Results Laboratory Results: 10/19/16 03:49 10/19/16 03:49 10/19/16 10/19/16 03:49 03:49 WBC 9.5 RBC 4.42 Hgb 13.2 Hct 41.5 MCV 94 MCH 30.0 MCHC 31.9 L RDW 17.4 H Plt Count 70 L Sodium 139.5 Potassium 4.2 Chloride 90 L Carbon Dioxide 38 H Anion Gap 12 BUN 80 H Creatinine 1.41 H Est GFR ( Amer) 44 L Est GFR (Non-Af Amer) 37 L Glucose 109 Calcium 8.9 10/15/16 10/15/16 10/15/16 01:40 09:56 09:56 Creatine Kinase 46 CK-MB (CK-2) < 0.22 Troponin I 0.034 0.046 NT-Pro-B Natriuret Pep 10/15/16 10/15/16 10/16/16 20:30 20:30 05:39 Creatine Kinase 38 CK-MB (CK-2) < 0.22 Troponin I 0.065 NT-Pro-B Natriuret Pep [id number] H 10/19/16 03:49 Creatine Kinase CK-MB (CK-2) Troponin I NT-Pro-B Natriuret Pep [id number] H Impressions: Cervical Spine CT 10/17/16 00:00 IMPRESSION: Cervical disc disease. Mild malalignment. Elbow X-Ray 10/18/16 00:00 IMPRESSION: Probable bursitis. Chest X-Ray 10/18/16 06:00 IMPRESSION: Stable chest. Assessment & Plan - Diagnosis (1) Pasteurella multocida bacteremia Plan: On levofloxacin and stable. (2) CHF (congestive heart failure) Qualifiers: Congestive heart failure type: diastolic Congestive heart failure chronicity: acute on chronic Qualified Code(s): I50.33 - Acute on chronic diastolic (congestive) heart failure Is this a current diagnosis for this admission?: YesPlan: Biventricular. Currently stable on low-dose of Lasix. Advised and emphasized using BiPAP and to lose weight. (3) Elevated LFTs Is this a current diagnosis for this admission?: Yes (4) Hypokalemia Is this a current diagnosis for this admission?: Yes (5) Obstructive sleep apnea Is this a current diagnosis for this admission?: YesPlan: Advised compliance with usage of BiPAP. (7) COPD exacerbation Is this a current diagnosis for this admission?: YesPlan: On nebulizers. (8) CKD (chronic kidney disease), stage III Is this a current diagnosis for this admission?: YesPlan: She seems better hydrated.Continue low-dose of Lasix and needs to be titrated up as an outpatient. I am going to sign off her case and please call me on a as needed basis. Would like to see her as an outpatient in 2-3 weeks time with appropriate labs.
--- NOTE | 2016-10-19 21:08 | PROGRESS NOTE E ---
Progress Note NAME: MARIANO HENRY : 1945 AGE: 71Y DATE: 10/19/2016 ROOM: 407 SUBJECTIVE: Note, the patient was seen for 30 minutes from 7:30 a.m. to 8:00 a.m. The patient complains of slightly increased shortness of breath. She is on the CPAP since last night. She continues to be in atrial fibrillation. Earlier the heart rate was a little higher, but subsequently the heart rate came down to 57. There is no chest pain. There is no leg edema. The patient denies any PND or orthopnea. There is no bleeding on Coumadin. There are no TIA or CVA symptoms. The patient has no chest pain. OBJECTIVE: GENERAL: On examination the patient is morbidly obese, in no acute distress, at present on BiPAP. VITAL SIGNS: She is afebrile with a temperature of 98.8 degrees Fahrenheit earlier this morning. Her heart rate initially was 139, but after that the patient's heart rate came down to 57. The patient's blood pressure is 107/48. The patient is on a BiPAP with a respiratory rate of 20 per minute, FIO2 of 40%, O2 saturations are 97%. HEAD: Atraumatic/normocephalic. EYES: Pupils are equal, round, regular, reactive to light and accommodation. Extraocular movements are normal. Sclera is without any icterus. Conjunctivae is pink. EARS, NOSE, AND THROAT: Negative. NECK: Supple. There is no JVD. Carotids are equal. There is no bruit. There is no cervical or axillary lymphadenopathy. There is no goiter. Carotids are equal without any bruits. There is no JVD. LUNGS: Show dullness in the left base with a few crackles which was much less than yesterday. Also, the rest of the lungs showed diminished air entry and prolonged expiration. HEART: S1, S2 is heard. S1 is of variable intensity. There is no S3 gallop. There is no S4 gallop. There is a systolic murmur in the aortic area and a pansystolic murmur in the mitral area. ABDOMEN: Soft, obese, nontender. There is no hepatosplenomegaly. Bowel sounds are well heard. There is no rigidity or mass appreciated. EXTREMITIES: Pedal pulses are diminished. The femorals are diminished. There are no femoral bruits. There is no clubbing or cyanosis. There is no pedal edema. There are chronic venous stasis dermatitis changes. There is no evidence of cellulitis. NEUROLOGIC: The patient awake alert ,oriented X 3 ,with no focal deficits. PSYCHIATRIC: The patient's judgement and insight are intact. Her affect is normal. She does not appear to be agitated or depressed. FLUID BALANCE: The patient's intake and output is not accurately recorded. DIAGNOSTIC DATA: The patient's white count is 9,500, hemoglobin is 13.2, hematocrit is 41.5, and her platelet count is reduced at 70,000. The patient's sodium is 139.5, potassium 4.2, chloride is 90, CO2 is 38, the patient's BUN is 80, creatinine is 1.41, and GFR is reduced to 37 mL which is stage-3 chronic kidney disease. This is improved from the prior stage-4 disease. The patient's ProTime is 27.4, INR is 2.42. IMPRESSION: 1. GRAM NEGATIVE INFECTION, PATIENT BEING TREATED WITH ANTIBIOTICS AND SEEMS TO BE IMPROVING. 2. PNEUMONIA LEFT BASE WITH A SMALL EFFUSION. THE PATIENT IS ON ANTIBIOTICS AND ALSO RESPIRATORY TREATMENTS. 3. MILD CHF, MOST LIKELY DUE TO VOLUME OVERLOAD. NOTE THAT THE IV FLUIDS HAVE BEEN STOPPED, AND NOW THE PATIENT IS COMPENSATED. 4. ACUTE KIDNEY INJURY. THIS HAS IMPROVED WITH HYDRATION, NOW THE PATIENT IS STAGE 3 WITH A GFR OF 37 WHICH IS STILL STAGE-3 CHRONIC KIDNEY DISEASE. NEED TO AVOID NEPHROTOXIC DRUGS. 5. SEVERE PULMONARY HYPERTENSION WITH RIGHT VENTRICULAR SYSTOLIC PRESSURE OF 70 TO 75. WILL DISCUSS WITH THE TEAM CAREGIVERS TO SEE IF WE CAN START THE PATIENT ON SILDENAFIL. 6. CONGESTIVE HEART FAILURE, AT PRESENT SEEMS TO BE COMPENSATED. THIS IS ACUTE ON CHRONIC DIASTOLIC HEART FAILURE, ALTHOUGH DIASTOLIC FUNCTION COULD NOT BE DETERMINED DUE TO ATRIAL FIBRILLATION. ALSO, THE PATIENT HAD A LITTLE BIT OF VOLUME OVERLOAD WHICH NOW SEEMS TO HAVE RESOLVED. 7. THERAPEUTIC INR ON COUMADIN. THERE IS NO EVIDENCE OF BLEEDING. NO EVIDENCE OF TIA OR CVA. 8. ATRIAL FIBRILLATION WITH CONTROLLED VENTRICULAR RESPONSE, SEEMS TO BE PERSISTENT. THE PLAN IS TO CONTINUE ANTICOAGULATION, CONTINUE ATENOLOL. 9. THROMBOCYTOPENIA. THE PLAN IS TO OBSERVE FOR ANY BLEEDING OR ECCHYMOSIS OR PETECHIA WHICH ARE NOT PRESENT. 10. TOBACCO DEPENDENCY. THE PATIENT IS COUNSELED TO STOP SMOKING. FIVE MINUTES SPENT ON THIS INCLUDING DISCUSSIONS OF WILL POWER, TO STOP THE COUMADIN AND ALSO CERTAIN MEDICATIONS WHICH CAN AID IN THE PATIENT'S ABILITY TO STOP SMOKING. THE ILL EFFECTS OF TOBACCO HAVE BEEN DISCUSSED IN DETAIL. 11. HYPOTHYROIDISM. THE PLAN IS TO CONTINUE THE PATIENT ON THYROID REPLACEMENT DRUG. 12. COPD. THE PATIENT IS ON XOPENEX, SEEMS TO BE DOING FAIRLY WELL, ALTHOUGH SHE NEEDS CPAP EVERY NOW AND THEN. 13. NECK PAIN, RESOLVED. RECOMMENDATIONS: As mentioned earlier, continue beta azalea, continue Coumadin. The patient is on p.o. Lasix 40 mg p.o. b.i.d., continue this. Note that the IV fluids have been stopped. TIME SPENT: Thirty minutes spent on this patient with more than 50% of the time spent in direct patient care, reviewing the patient's medications, and also coordination of care was done along with her other caregivers in the case. CODE STATUS: The patient is a FULL CODE. She states her friend, Olivia De La Cruz, is her surrogate healthcare [id number]. The patient wants to be a full code after discussions. Will follow with you. This case is of moderate complexity since most of the conditions are improving except that the patient needs CPAP. DICTATING PHYSICIAN: THOMAS BLANCA M.D. [id number] PHY#: [id number] ID: [id number] JOB#: [id number] ACCT: [id number] cc:THOMAS BLANCA M.D. > MTDD
[2016-10-19] MEDS: WARFARIN SODIUM 2.5 MG TABLET PO SCH (22:46)
[2016-10-19] MEDS: ATORVASTATIN CALCIUM 40 MG TABLET PO SCH (22:46)
[2016-10-20 04:59] LABS: PROTHROMBIN TIME 26.2 SEC (11.4-15.4)
[2016-10-20 05:21] LABS: ALANINE AMINOTRANSFERASE 49 U/L (9-52); ALBUMIN 3.3 g/dL (3.5-5.0); ALKALINE PHOSPHATASE 194 U/L (38-126); ANION GAP 11 (5-19); ASPARTATE AMINO TRANSFERASE 62 U/L (14-36); BILIRUBIN,DIRECT 1.4 mg/dL (0.0-0.4); BILIRUBIN,TOTAL 2.2 mg/dL (0.2-1.3); BLOOD UREA NITROGEN 91 mg/dL (7-20); CALCIUM 9.5 mg/dL (8.4-10.2); CARBON DIOXIDE 37 mmol/L (22-30); CHLORIDE 90 mmol/L (98-107); CREATININE RESULT 1.46 mg/dL (0.52-1.25); GLUCOSE 124 mg/dL (75-110); MAGNESIUM 2.1 mg/dL (1.6-2.3); POTASSIUM 4.2 mmol/L (3.6-5.0); SODIUM 137.6 mmol/L (137-145); TOTAL PROTEIN 6.5 g/dL (6.3-8.2)
[2016-10-20] MEDS: LEVOTHYROXINE SODIUM 0.15 MG TABLET PO SCH (06:20)
[2016-10-20] MEDS: THIAMINE HCL 100 MG TABLET PO SCH (09:32)
[2016-10-20] MEDS: MULTIVITAMIN TABLET PO SCH (09:32)
[2016-10-20] MEDS: FUROSEMIDE 40 MG TABLET PO SCH ×2 (09:33→17:26)
[2016-10-20] MEDS: POTASSIUM CHLORIDE 10 MEQ TABLET.SA PO SCH ×2 (09:33→17:26)
[2016-10-20] MEDS: FOLIC ACID 1 MG TABLET PO SCH (09:33)
[2016-10-20] MEDS: CEFTRIAXONE 1 GM/D5W RTU 50 ML IV SCH (09:34)
[2016-10-20] MEDS: ACETAMINOPHEN 325 MG TABLET PO PRN (09:35)
[2016-10-20] MEDS: GABAPENTIN 300 MG CAPSULE PO SCH ×2 (09:39→22:46)
[2016-10-20] MEDS: ATENOLOL 50 MG TABLET PO SCH (09:39)
[2016-10-20] MEDS: NYSTATIN TOPICAL POWDER 15 GM TP SCH ×2 (09:39→17:28)
--- NOTE | 2016-10-20 12:08 | PDOC PROGRESS REPORT ---
Subjective Progress Note for:: 10/20/16 Subjective:: The patient states to feel slightly better. Her breathing has improved. She still having trouble with her right forearm and elbow. She has not been out of bed to chair. She has not had physical therapy. Physical Exam Vital Signs: Temp Pulse Resp BP Pulse Ox 99.7 F 76 19 124/61 90 L 10/20/16 07:56 10/20/16 07:56 10/20/16 07:56 10/20/16 07:56 10/20/16 07:56 Pulse Oximeter Continuous Start: 10/16/16 15: 36 Freq: RTQ4 Status: Complete Document 10/17/16 17:00 HCR (Rec: 10/17/16 18:40 HCR [id number]) Pulse Oximetry Assessment Equipment Usage Equipment Discontinued Continuous SpO2 Machine # 3 Intake & Output 10/19/16 10/20/16 10/21/16 06:59 06:59 06:59 Intake Total 1600 986 Balance 1600 986 Weight 126.4 kg 127.8 kg General appearance: PRESENT: mild distress Head exam: PRESENT: atraumatic Eye exam: PRESENT: conjunctiva pink Neck exam: PRESENT: tenderness. ABSENT: carotid bruit Respiratory exam: PRESENT: crackles Cardiovascular exam: PRESENT: irregular rhythm Pulses: PRESENT: +1 pedal pulses bilateral GI/Abdominal exam: PRESENT: soft Extremities exam: PRESENT: joint swelling, tenderness Musculoskeletal exam: ABSENT: ambulatory Neurological exam: PRESENT: alert, awake Skin exam: PRESENT: abrasion Results Laboratory Results: 10/19/16 03:49 10/20/16 04:00 10/20/16 10/20/16 04:00 04:00 Sodium 137.6 Potassium 4.2 Chloride 90 L Carbon Dioxide 37 H Anion Gap 11 BUN 91 H Creatinine 1.46 H Est GFR ( Amer) 43 L Est GFR (Non-Af Amer) 35 L Glucose 124 H Calcium 9.5 Magnesium 2.1 Total Bilirubin 2.2 H AST 62 H ALT 49 Alkaline Phosphatase 194 H Total Protein 6.5 Albumin 3.3 L TSH 2.14 10/15/16 10/15/16 10/15/16 01:40 09:56 09:56 Creatine Kinase 46 CK-MB (CK-2) < 0.22 Troponin I 0.034 0.046 NT-Pro-B Natriuret Pep 10/15/16 10/15/16 10/16/16 20:30 20:30 05:39 Creatine Kinase 38 CK-MB (CK-2) < 0.22 Troponin I 0.065 NT-Pro-B Natriuret Pep 60023 H 10/19/16 10/20/16 03:49 04:00 Creatine Kinase CK-MB (CK-2) Troponin I NT-Pro-B Natriuret Pep 76079 H 13656 H Impressions: Cervical Spine CT 10/17/16 00:00 IMPRESSION: Cervical disc disease. Mild malalignment. Elbow X-Ray 10/18/16 00:00 IMPRESSION: Probable bursitis. Chest X-Ray 10/18/16 06:00 IMPRESSION: Stable chest. Assessment & Plan - Diagnosis (1) Recent upper respiratory tract infection Is this a current diagnosis for this admission?: Yes (2) Bacteremia due to Gram-negative bacteria Is this a current diagnosis for this admission?: YesPlan: Continue current antibiotic. We'll consider switching to Levaquin and adjust according to kidney function (3) CHF (congestive heart failure) Qualifiers: Congestive heart failure type: diastolic Congestive heart failure chronicity: acute on chronic Qualified Code(s): I50.33 - Acute on chronic diastolic (congestive) heart failure Is this a current diagnosis for this admission?: YesPlan: Very slow improvement because of multiorgan involvement. Acute on chronic kidney disease Atrial fibrillation Acute on chronic congestive heart failure Severe pulmonary hypertension (4) Leukocytosis Qualifiers: Leukocytosis type: unspecified Qualified Code(s): D72.829 - Elevated white blood cell count, unspecified Is this a current diagnosis for this admission?: Yes (5) Thrombocytopenia Is this a current diagnosis for this admission?: YesPlan: Improving slightly (6) CKD (chronic kidney disease), stage III Is this a current diagnosis for this admission?: YesPlan: Stable (7) Tobacco dependency Is this a current diagnosis for this admission?: Yes (8) Supratherapeutic INR Is this a current diagnosis for this admission?: Yes (9) Anticoagulated on Coumadin Is this a current diagnosis for this admission?: Yes (10) Elevated LFTs Is this a current diagnosis for this admission?: Yes (11) Sepsis due to Gram negative bacteria Plan: Presently on antibiotics (12) Atrial fibrillation Qualifiers: Atrial fibrillation type: chronic Qualified Code(s): I48.2 - Chronic atrial fibrillation Is this a current diagnosis for this admission?: YesPlan: Continue atenolol (13) Pulmonary hypertension Is this a current diagnosis for this admission?: YesPlan: Discussed with cardiology we might consider starting sildenafil (14) Obesity hypoventilation syndrome Is this a current diagnosis for this admission?: YesPlan: Continue BiPAP (15) Obstructive sleep apnea Is this a current diagnosis for this admission?: YesPlan: Continue with BiPAP (16) Right elbow pain Is this a current diagnosis for this admission?: YesPlan: We will follow the recommendations by orthopedic (17) Right forearm cellulitis Is this a current diagnosis for this admission?: YesPlan: We'll continue with antibiotics
[2016-10-20] MEDS: WARFARIN SODIUM 2.5 MG TABLET PO SCH (22:40)
[2016-10-20] MEDS: ATORVASTATIN CALCIUM 40 MG TABLET PO SCH (22:40)
[2016-10-21 05:08] LABS: MEAN CORPUSCULAR HEMOGLOBIN 30.3 pg (27.0-33.4); MEAN CORPUSCULAR HGB CONC 32.5 g/dL (32.0-36.0); MEAN CORPUSCULAR VOLUME 93 fl (80-97); RED BLOOD COUNT 4.29 10^6/uL (3.72-5.28); RED CELL DISTRIBUTION WIDTH 17.6 % (11.5-14.0); WHITE BLOOD COUNT 14.6 10^3/uL (4.0-10.5)
[2016-10-21 05:10] LABS: PROTHROMBIN TIME 26.8 SEC (11.4-15.4)
[2016-10-21] MEDS: LEVOTHYROXINE SODIUM 0.15 MG TABLET PO SCH (05:39)
--- NOTE | 2016-10-21 07:03 | PDOC PROGRESS REPORT ---
Subjective Progress Note for:: 10/21/16 Subjective:: Patient lying in bed comfortable. She states the elbow pain is not causing her considerable discomfort but feels as though her hand arthritis is causing her discomfort. She states it is worse with motion and pressure. Denies numbness or tingling. Physical Exam Vital Signs: Temp Pulse Resp BP Pulse Ox 98.0 F 62 19 124/68 92 10/21/16 04:38 10/21/16 04:38 10/21/16 04:38 10/21/16 04:38 10/21/16 04:38 Pulse Oximeter Continuous Start: 10/16/16 15: 36 Freq: RTQ4 Status: Complete Document 10/17/16 17:00 HCR (Rec: 10/17/16 18:40 HCR [id number]) Pulse Oximetry Assessment Equipment Usage Equipment Discontinued Continuous SpO2 Machine # 3 Intake & Output 10/20/16 10/21/16 10/22/16 06:59 06:59 06:59 Intake Total 986 915 Balance 986 915 Weight 127.8 kg General appearance: PRESENT: no acute distress, cooperative, morbidly obese Head exam: PRESENT: atraumatic, normocephalic Eye exam: PRESENT: conjunctiva pale Mouth exam: PRESENT: moist Pulses: PRESENT: normal dorsalis pedis pul GI/Abdominal exam: PRESENT: soft Musculoskeletal exam: PRESENT: other - Right hand: Notable ecchymosis dorsally throughout the hand. Tenderness to palpation along the third metacarpal phalangeal joint. Pain with range of motion. No sensory deficits. Results Laboratory Results: 10/21/16 03:55 10/20/16 04:00 10/21/16 03:55 WBC 14.6 H RBC 4.29 Hgb 13.0 Hct 40.0 MCV 93 MCH 30.3 MCHC 32.5 RDW 17.6 H Plt Count 126 L 10/15/16 10/15/16 10/15/16 01:40 09:56 09:56 Creatine Kinase 46 CK-MB (CK-2) < 0.22 Troponin I 0.034 0.046 NT-Pro-B Natriuret Pep 10/15/16 10/15/16 10/16/16 20:30 20:30 05:39 Creatine Kinase 38 CK-MB (CK-2) < 0.22 Troponin I 0.065 NT-Pro-B Natriuret Pep 97359 H 10/19/16 10/20/16 03:49 04:00 Creatine Kinase CK-MB (CK-2) Troponin I NT-Pro-B Natriuret Pep 97613 H 40317 H Impressions: Cervical Spine CT 10/17/16 00:00 IMPRESSION: Cervical disc disease. Mild malalignment. Elbow X-Ray 10/18/16 00:00 IMPRESSION: Probable bursitis. Chest X-Ray 10/18/16 06:00 IMPRESSION: Stable chest. Assessment & Plan - Diagnosis (1) Olecranon bursitis, right elbow Is this a current diagnosis for this admission?: YesPlan: As for the bursitis I would continue to monitor these symptoms. The patient's major complaint today is her hand pain. I will obtain radiographs for evaluation. Meantime they may try warm heat if this fails breve relief we will consider further treatment options.
--- NOTE | 2016-10-21 08:53 | PDOC PROGRESS REPORT ---
Subjective Progress Note for:: 10/21/16 Subjective:: The patient is complaining of her wrist and hand pain today. Her elbow is still painful but seemed to be slightly better. Her breathing has improved. She is having difficulty even moving around in the bed. She has set up with physical therapy yesterday at the edge of the bed. She is unable to get out of bed to chair. D[facility] Physical Exam Vital Signs: Temp Pulse Resp BP Pulse Ox 98.0 F 62 19 124/68 92 10/21/16 04:38 10/21/16 04:38 10/21/16 04:38 10/21/16 04:38 10/21/16 04:38 Pulse Oximeter Continuous Start: 10/16/16 15: 36 Freq: RTQ4 Status: Complete Document 10/17/16 17:00 HCR (Rec: 10/17/16 18:40 HCR [id number]) Pulse Oximetry Assessment Equipment Usage Equipment Discontinued Continuous SpO2 Machine # 3 Intake & Output 10/20/16 10/21/16 10/22/16 06:59 06:59 06:59 Intake Total 986 1270 Balance 986 1270 Weight 127.8 kg 135 kg General appearance: PRESENT: mild distress Head exam: PRESENT: atraumatic Eye exam: PRESENT: conjunctiva pink Neck exam: ABSENT: carotid bruit Respiratory exam: PRESENT: crackles Cardiovascular exam: PRESENT: irregular rhythm Pulses: PRESENT: +1 pedal pulses bilateral GI/Abdominal exam: PRESENT: soft Extremities exam: PRESENT: joint swelling, tenderness Musculoskeletal exam: PRESENT: tenderness Neurological exam: PRESENT: alert, awake Results Laboratory Results: 10/21/16 03:55 10/20/16 04:00 10/21/16 03:55 WBC 14.6 H RBC 4.29 Hgb 13.0 Hct 40.0 MCV 93 MCH 30.3 MCHC 32.5 RDW 17.6 H Plt Count 126 L 10/15/16 10/15/16 10/15/16 01:40 09:56 09:56 Creatine Kinase 46 CK-MB (CK-2) < 0.22 Troponin I 0.034 0.046 NT-Pro-B Natriuret Pep 10/15/16 10/15/16 10/16/16 20:30 20:30 05:39 Creatine Kinase 38 CK-MB (CK-2) < 0.22 Troponin I 0.065 NT-Pro-B Natriuret Pep 11097 H 10/19/16 10/20/16 03:49 04:00 Creatine Kinase CK-MB (CK-2) Troponin I NT-Pro-B Natriuret Pep 67876 H 92604 H Impressions: Cervical Spine CT 10/17/16 00:00 IMPRESSION: Cervical disc disease. Mild malalignment. Elbow X-Ray 10/18/16 00:00 IMPRESSION: Probable bursitis. Assessment & Plan - Diagnosis (1) Recent upper respiratory tract infection Is this a current diagnosis for this admission?: YesPlan: Improving (2) Bacteremia due to Gram-negative bacteria Is this a current diagnosis for this admission?: YesPlan: Presently on antibiotics (3) CHF (congestive heart failure) Qualifiers: Congestive heart failure type: diastolic Congestive heart failure chronicity: acute on chronic Qualified Code(s): I50.33 - Acute on chronic diastolic (congestive) heart failure Is this a current diagnosis for this admission?: Yes (4) Leukocytosis Qualifiers: Leukocytosis type: unspecified Qualified Code(s): D72.829 - Elevated white blood cell count, unspecified Is this a current diagnosis for this admission?: Yes (5) Thrombocytopenia Is this a current diagnosis for this admission?: YesPlan: Improving platelet count 121 (6) CKD (chronic kidney disease), stage III Is this a current diagnosis for this admission?: YesPlan: Stable (7) Tobacco dependency Is this a current diagnosis for this admission?: Yes (8) Supratherapeutic INR Is this a current diagnosis for this admission?: Yes (9) Anticoagulated on Coumadin Is this a current diagnosis for this admission?: Yes (10) Elevated LFTs Is this a current diagnosis for this admission?: Yes (12) Atrial fibrillation Qualifiers: Atrial fibrillation type: chronic Qualified Code(s): I48.2 - Chronic atrial fibrillation Is this a current diagnosis for this admission?: YesPlan: Continue atenolol (13) Pulmonary hypertension Is this a current diagnosis for this admission?: YesPlan: We'll discussed with cardiology (14) Obesity hypoventilation syndrome Is this a current diagnosis for this admission?: YesPlan: Continue BiPAP (15) Obstructive sleep apnea Is this a current diagnosis for this admission?: YesPlan: Continue with BiPAP (16) Right elbow pain Is this a current diagnosis for this admission?: Yes (17) Right forearm cellulitis Is this a current diagnosis for this admission?: Yes
[2016-10-21] MEDS ORDERED: LEVOFLOXACIN 500 MG TABLET PO SCH (10:00)
[2016-10-21 11:20] LABS: ARTERIAL BLOOD O2 SATURATION 87.2 % (94-98)
[2016-10-21] MEDS: MULTIVITAMIN TABLET PO SCH (13:04)
[2016-10-21] MEDS: FOLIC ACID 1 MG TABLET PO SCH (13:04)
[2016-10-21] MEDS: FUROSEMIDE 40 MG TABLET PO SCH ×2 (13:05→17:32)
[2016-10-21] MEDS: POTASSIUM CHLORIDE 10 MEQ TABLET.SA PO SCH ×2 (13:05→17:32)
[2016-10-21] MEDS: GABAPENTIN 300 MG CAPSULE PO SCH ×2 (13:06→22:28)
[2016-10-21] MEDS: CEFTRIAXONE 1 GM/D5W RTU 50 ML IV SCH (13:06)
[2016-10-21] MEDS: THIAMINE HCL 100 MG TABLET PO SCH (13:29)
[2016-10-21] MEDS: ATENOLOL 50 MG TABLET PO SCH (13:29)
[2016-10-21] MEDS: LEVOFLOXACIN 250 MG TABLET PO SCH (13:29)
[2016-10-21] MEDS: NYSTATIN TOPICAL POWDER 15 GM TP SCH ×2 (13:30→17:37)
[2016-10-21] MEDS ORDERED: PREDNISONE 20 MG TABLET PO ONE (17:30)
[2016-10-21] MEDS: WARFARIN SODIUM 2.5 MG TABLET PO SCH (22:42)
[2016-10-21] MEDS: ATORVASTATIN CALCIUM 40 MG TABLET PO SCH (22:42)
--- NOTE | 2016-10-21 23:43 | PROGRESS NOTE E ---
Progress Note NAME: MARIANO HENRY : 1945 AGE: 71Y DATE: 10/21/2016 ROOM: 407 SUBJECTIVE: Note that the patient was seen from 11:40 a.m. to 12:10 p.m., which is 30 minutes. The patient states that she does not feel well today. She gets short of breath getting up on the edge of the bed. Earlier Physical Therapy had tried to get her to ambulate, but they could only get her to sit on the edge of the bed and she could not get out of bed. She also complains of pain in the right arm and hand which she says is worsening. There is some redness there also. There is no chest pain or discomfort. There is no bleeding on Coumadin. There are no TIA or CVA symptoms. There is no leg edema. There is no orthopnea or PND, surprisingly. OBJECTIVE: GENERAL: On examination, the patient is morbidly obese, at present lying down, in no acute distress, is on nasal cannula at 4 liters. VITAL SIGNS: She is afebrile with a temperature of 98.5 degrees Fahrenheit. Pulse is 79 beats per minute. Blood pressure 122/63. Respirations are 16 per minute. O2 saturations are 94% on 4 liters nasal cannula. HEAD: Atraumatic/normocephalic. EYES: Pupils are equal, round, regular, reactive to light and accommodation. Extraocular movements are normal. Sclera is without any icterus. Conjunctiva is pink. EARS, NOSE, AND THROAT: Negative. NECK: Supple. There is no JVD. Carotids are equal. There is no bruit. There is no cervical or axillary lymphadenopathy. There is no goiter. Carotids are equal without any bruits. There is no JVD. LUNGS: Show dullness of the left base with a few crackles which is much less than yesterday. Also, the rest of the lungs showed diminished air entry and prolonged expiration. The rest of the lungs on percussion show hyperresonance. HEART: S1, S2 is heard. S1 is of variable intensity. There is no S3 gallop. There is no S4 gallop. Systolic murmur in the aortic area and a pansystolic murmur in the mitral area. There is no rub. ABDOMEN: Soft, obese, nontender. There is no hepatosplenomegaly. Bowel sounds are well heard. There are no tender areas or masses. There is no rebound, guarding, or rigidity. EXTREMITIES: Pedal pulses are diminished. Femorals are diminished. There is no femoral bruit. There is no clubbing or cyanosis. There is no pedal edema. There are chronic venous stasis dermatitis changes. There is no evidence of cellulitis. NEUROLOGICAL: The patient awake alert ,oriented X 3 ,with no focal deficits. PSYCHIATRIC: The patient's judgement and insight are intact. Her affect is normal. She does not appear to be agitated, but she seems to be depressed. FLUID BALANCE: The patient's intake and output is not accurate. DIAGNOSTIC DATA: The patient's white count is 14,600, hemoglobin is 13, hematocrit is 40, and her platelet count is 126,000 which has come up. The patient's ProTime is 26.8, INR is 2.35 which is therapeutic. IMPRESSION AND RECOMMENDATIONS: 1. PASTEURELLA INFECTION. Being treated with antibiotics and seems to be improving. 2. PNEUMONIA IN THE LEFT BASE WITH SMALL EFFUSION. The patient is on antibiotics and respiratory treatments. It remains the same. 3. MILD CHF. Most likely due to volume overload, and note IV fluids have been stopped and now the patient is compensated. 4. ACUTE KIDNEY INJURY. This is improved with hydration, and Lasix will be converted to p.o. Lasix. The plan is to monitor her GFR/BUN/creatinine and avoid nephrotoxic drugs. 5. SEVERE PULMONARY HYPERTENSION. With right ventricular systolic pressure 70 to 75. Most likely this is one of the causes of the patient's shortness of breath along with her pneumonia and her COPD and volume overload due to kidney disease, but the patient is not on nitrates and is not on any medications which are contraindicated to sildenafil, hence will start the sildenafil for the patient. The plan has been discussed with the patient. I have told her that there is a severe reaction with nitrates including night sweating, hypotension and shock, and also to avoid alpha-1 blocking agents. 6. CONGESTIVE HEART FAILURE. At present seems to be compensated, continue current treatment for this. 7. THERAPEUTIC INR ON COUMADIN. There is no evidence of bleeding. Continue Coumadin. There is no evidence of TIA or CVA. The plan is to continue Coumadin. 8. ATRIAL FIBRILLATION WITH CONTROLLED VENTRICULAR RESPONSE. Continue atenolol. 9. THROMBOCYTOPENIA. Note that the baseline has come up to 136,000. 10. RIGHT ELBOW PAIN AND RIGHT HAND PAIN. This has been seen by Orthopedics who thinks that the patient has olecranon bursitis and also right hand/wrist arthritis and has recommended warm heat. 11. TOBACCO DEPENDENCY. As I mentioned earlier, the patient has been counseled to stop smoking. 12. HYPOTHYROIDISM. The plan is to continue the patient on thyroid replacement drugs. 13. COPD. The patient is on Xopenex, seems to be doing fairly well, although she needs CPAP every now and then. 14. Neck pain. This is resolved. As mentioned earlier, continue the Coumadin, continue Lasix p.o., continue Xopenex, continue antibiotics, and will start the patient on sildenafil 30 mg after each meal, and we will see if this helps it. Usually if sildenafil helps people with primary pulmonary hypertension, then the patient most likely has secondary pulmonary hypertension. Will follow with you. The case has been discussed with Dr. Álvarez, who is the attending physician on the case and also the nurse taking care of the patient and also with the patient. The case is of moderate complexity. The medications were reviewed and new medications have been added, and also discussions of the side effects of the medications and interactions of the medications were discussed with the patient. Will follow with you. DICTATING PHYSICIAN: THOMAS BLANCA M.D. [id number] PHY#: [id number] ID: [id number] JOB#: [id number] ACCT: [id number] cc:THOMAS LBANCA M.D. > MTDOdette
[2016-10-22 04:58] LABS: PROTHROMBIN TIME 28.4 SEC (11.4-15.4)
[2016-10-22 05:18] LABS: ALANINE AMINOTRANSFERASE 45 U/L (9-52); ALBUMIN 2.7 g/dL (3.5-5.0); ALKALINE PHOSPHATASE 215 U/L (38-126); ANION GAP 13 (5-19); ASPARTATE AMINO TRANSFERASE 64 U/L (14-36); BILIRUBIN,DIRECT 1.2 mg/dL (0.0-0.4); BILIRUBIN,TOTAL 1.8 mg/dL (0.2-1.3); BLOOD UREA NITROGEN 91 mg/dL (7-20); CALCIUM 9.2 mg/dL (8.4-10.2); CARBON DIOXIDE 38 mmol/L (22-30); CHLORIDE 89 mmol/L (98-107); CREATININE RESULT 1.24 mg/dL (0.52-1.25); GLUCOSE 139 mg/dL (75-110); POTASSIUM 4.3 mmol/L (3.6-5.0); SODIUM 140.1 mmol/L (137-145); TOTAL PROTEIN 5.5 g/dL (6.3-8.2)
[2016-10-22] MEDS: LEVOTHYROXINE SODIUM 0.15 MG TABLET PO SCH (05:35)
[2016-10-22 05:41] LABS: HEMATOCRIT 39.1 % (36.0-47.0); HEMOGLOBIN 12.6 g/dL (12.0-15.5); HGB HCT DIFFERENCE -1.3; MEAN CORPUSCULAR HEMOGLOBIN 30.1 pg (27.0-33.4); MEAN CORPUSCULAR HGB CONC 32.2 g/dL (32.0-36.0); MEAN CORPUSCULAR VOLUME 93 fl (80-97); RED BLOOD COUNT 4.18 10^6/uL (3.72-5.28); RED CELL DISTRIBUTION WIDTH 17.5 % (11.5-14.0); WHITE BLOOD COUNT 13.7 10^3/uL (4.0-10.5)
[2016-10-22 06:07] LABS: BAND NEUTROPHILS % (MANUAL) 2 % (3-5); BASOPHILS % (MANUAL) 0 % (0-2); EOSINOPHILS % (MANUAL) 0 % (0-6); LYMPHOCYTES % (MANUAL) 5 % (13-45); TOTAL CELLS COUNTED 100
[2016-10-22 06:10] LABS: ANISOCYTOSIS 1+; OVALOCYTES SLIGHT; TEAR DROP CELLS SLIGHT; TOXIC GRANULATION SLIGHT; TOXIC VACUOLATION PRESENT
[2016-10-22 07:01] LABS: ARTERIAL BLOOD BASE EXCESS 11.9 mmol/L; ARTERIAL BLOOD O2 SATURATION 92.3 % (94-98)
--- NOTE | 2016-10-22 08:14 | PDOC PROGRESS REPORT ---
Subjective Progress Note for:: 10/22/16 Subjective:: The patient states to feel better. Her breathing has improved. She still having a lot of pain in her right hand. Elbow seemed to have improved slightly. She is scheduled for an abdominal ultrasound. Physical Exam Vital Signs: Temp Pulse Resp BP Pulse Ox 97.7 F 59 L 20 132/60 H 94 10/22/16 04:00 10/22/16 07:00 10/22/16 04:54 10/22/16 04:00 10/22/16 04:54 Pulse Oximeter Continuous Start: 10/16/16 15: 36 Freq: RTQ4 Status: Complete Document 10/17/16 17:00 HCR (Rec: 10/17/16 18:40 HCR [id number]) Pulse Oximetry Assessment Equipment Usage Equipment Discontinued Continuous SpO2 Machine # 3 Intake & Output 10/21/16 10/22/16 10/23/16 06:59 06:59 06:59 Intake Total 1270 153 Balance 1270 153 Weight 135 kg General appearance: PRESENT: mild distress Head exam: PRESENT: atraumatic Eye exam: PRESENT: conjunctiva pink Neck exam: ABSENT: carotid bruit Respiratory exam: PRESENT: crackles Cardiovascular exam: PRESENT: irregular rhythm Pulses: PRESENT: +1 pedal pulses bilateral GI/Abdominal exam: PRESENT: soft Extremities exam: PRESENT: tenderness Musculoskeletal exam: PRESENT: tenderness Neurological exam: PRESENT: alert, awake Results Laboratory Results: 10/22/16 04:07 10/22/16 04:07 10/21/16 10/22/16 10/22/16 11:00 04:07 04:07 WBC 13.7 H RBC 4.18 Hgb 12.6 Hct 39.1 MCV 93 MCH 30.1 MCHC 32.2 RDW 17.5 H Plt Count 157 Seg Neutrophils % Not Reportable Lymphocytes % Not Reportable Monocytes % Not Reportable Eosinophils % Not Reportable Basophils % Not Reportable Absolute Neutrophils Not Reportable Absolute Lymphocytes Not Reportable Absolute Monocytes Not Reportable Absolute Eosinophils Not Reportable Absolute Basophils Not Reportable Carbonic Acid 2.01 H HCO3/H2CO3 Ratio 21:1 ABG pH 7.43 ABG pCO2 66.7 H ABG pO2 53.1 L ABG HCO3 43.7 H ABG O2 Saturation 87.2 L ABG Base Excess 16.0 FiO2 4L Sodium 140.1 Potassium 4.3 Chloride 89 L Carbon Dioxide 38 H Anion Gap 13 BUN 91 H Creatinine 1.24 Est GFR ( Amer) 52 L Est GFR (Non-Af Amer) 43 L Glucose 139 H Calcium 9.2 Total Bilirubin 1.8 H AST 64 H ALT 45 Alkaline Phosphatase 215 H Total Protein 5.5 L Albumin 2.7 L 10/22/16 06:45 WBC RBC Hgb Hct MCV MCH MCHC RDW Plt Count Seg Neutrophils % Lymphocytes % Monocytes % Eosinophils % Basophils % Absolute Neutrophils Absolute Lymphocytes Absolute Monocytes Absolute Eosinophils Absolute Basophils Carbonic Acid 1.90 H HCO3/H2CO3 Ratio 20:1 ABG pH 7.41 ABG pCO2 63.1 H ABG pO2 64.8 L ABG HCO3 39.4 H ABG O2 Saturation 92.3 L ABG Base Excess 11.9 FiO2 4L Sodium Potassium Chloride Carbon Dioxide Anion Gap BUN Creatinine Est GFR ( Amer) Est GFR (Non-Af Amer) Glucose Calcium Total Bilirubin AST ALT Alkaline Phosphatase Total Protein Albumin 10/15/16 10/15/16 10/15/16 01:40 09:56 09:56 Creatine Kinase 46 CK-MB (CK-2) < 0.22 Troponin I 0.034 0.046 NT-Pro-B Natriuret Pep 10/15/16 10/15/16 10/16/16 20:30 20:30 05:39 Creatine Kinase 38 CK-MB (CK-2) < 0.22 Troponin I 0.065 NT-Pro-B Natriuret Pep 59197 H 10/19/16 10/20/16 03:49 04:00 Creatine Kinase CK-MB (CK-2) Troponin I NT-Pro-B Natriuret Pep 94043 H 38053 H Impressions: Cervical Spine CT 10/17/16 00:00 IMPRESSION: Cervical disc disease. Mild malalignment. Elbow X-Ray 10/18/16 00:00 IMPRESSION: Probable bursitis. Hand X-Ray 10/21/16 00:00 IMPRESSION: Osteoarthritis as above. Assessment & Plan - Diagnosis (1) Recent upper respiratory tract infection Is this a current diagnosis for this admission?: Yes (2) Bacteremia due to Gram-negative bacteria Is this a current diagnosis for this admission?: YesPlan: Presently on antibiotics (3) CHF (congestive heart failure) Qualifiers: Congestive heart failure type: diastolic Congestive heart failure chronicity: acute on chronic Qualified Code(s): I50.33 - Acute on chronic diastolic (congestive) heart failure Is this a current diagnosis for this admission?: YesPlan: Very slow improvement because of multiorgan involvement. Acute on chronic kidney disease Atrial fibrillation Acute on chronic congestive heart failure Severe pulmonary hypertension (4) Leukocytosis Qualifiers: Leukocytosis type: unspecified Qualified Code(s): D72.829 - Elevated white blood cell count, unspecified Is this a current diagnosis for this admission?: YesPlan: Repeat labs and continue antibiotics (5) Thrombocytopenia Is this a current diagnosis for this admission?: YesPlan: Improved platelet count of 150 (6) CKD (chronic kidney disease), stage III Is this a current diagnosis for this admission?: YesPlan: Stable (7) Tobacco dependency Is this a current diagnosis for this admission?: Yes (8) Supratherapeutic INR Is this a current diagnosis for this admission?: Yes (9) Anticoagulated on Coumadin Is this a current diagnosis for this admission?: Yes (10) Elevated LFTs Is this a current diagnosis for this admission?: Yes (12) Atrial fibrillation Qualifiers: Atrial fibrillation type: chronic Qualified Code(s): I48.2 - Chronic atrial fibrillation Is this a current diagnosis for this admission?: Yes (13) Pulmonary hypertension Is this a current diagnosis for this admission?: Yes (14) Obesity hypoventilation syndrome Is this a current diagnosis for this admission?: YesPlan: Continue BiPAP (15) Obstructive sleep apnea Is this a current diagnosis for this admission?: YesPlan: Continue with BiPAP (16) Right elbow pain Is this a current diagnosis for this admission?: YesPlan: Started on prednisone (17) Right forearm cellulitis Is this a current diagnosis for this admission?: YesPlan: We'll continue with antibiotics
[2016-10-22] MEDS: POTASSIUM CHLORIDE 10 MEQ TABLET.SA PO SCH ×2 (11:30→18:22)
[2016-10-22] MEDS: MULTIVITAMIN TABLET PO SCH (11:31)
[2016-10-22] MEDS: THIAMINE HCL 100 MG TABLET PO SCH (11:31)
[2016-10-22] MEDS: LEVOFLOXACIN 250 MG TABLET PO SCH (11:31)
[2016-10-22] MEDS: ATENOLOL 50 MG TABLET PO SCH (11:31)
[2016-10-22] MEDS: SILDENAFIL CITRATE 20 MG TABLET PO SCH ×3 (11:32→18:25)
[2016-10-22] MEDS: FUROSEMIDE 40 MG TABLET PO SCH ×2 (11:33→18:23)
[2016-10-22] MEDS: FOLIC ACID 1 MG TABLET PO SCH (11:33)
[2016-10-22] MEDS: PREDNISONE 20 MG TABLET PO SCH ×2 (11:33→18:23)
[2016-10-22] MEDS: NYSTATIN TOPICAL POWDER 15 GM TP SCH ×2 (11:34→18:28)
[2016-10-22] MEDS: GABAPENTIN 300 MG CAPSULE PO SCH ×2 (11:34→21:43)
[2016-10-22] MEDS ORDERED: MAG HYDROX/AL HYDROX/SIMETH SUSP 30 ML UDCUP PO PRN (21:43)
[2016-10-22] MEDS: ATORVASTATIN CALCIUM 40 MG TABLET PO SCH (21:43)
[2016-10-22] MEDS: WARFARIN SODIUM 2.5 MG TABLET PO SCH (21:43)
[2016-10-22 22:43] LABS: CREATINE KINASE MB 0.27 ng/mL (<4.55)
[2016-10-22 22:46] LABS: TROPONIN I < 0.012 ng/mL
[2016-10-23 04:35] LABS: PROTHROMBIN TIME 28.2 SEC (11.4-15.4)
[2016-10-23 04:37] LABS: HEMATOCRIT 38.6 % (36.0-47.0); HEMOGLOBIN 12.7 g/dL (12.0-15.5); HGB HCT DIFFERENCE -0.5; MEAN CORPUSCULAR HEMOGLOBIN 30.6 pg (27.0-33.4); MEAN CORPUSCULAR HGB CONC 32.9 g/dL (32.0-36.0); MEAN CORPUSCULAR VOLUME 93 fl (80-97); RED BLOOD COUNT 4.15 10^6/uL (3.72-5.28); RED CELL DISTRIBUTION WIDTH 17.5 % (11.5-14.0); WHITE BLOOD COUNT 10.9 10^3/uL (4.0-10.5)
[2016-10-23 04:43] LABS: ALANINE AMINOTRANSFERASE 57 U/L (9-52); ALBUMIN 2.7 g/dL (3.5-5.0); ALKALINE PHOSPHATASE 206 U/L (38-126); ASPARTATE AMINO TRANSFERASE 72 U/L (14-36); BILIRUBIN,DIRECT 1.1 mg/dL (0.0-0.4); BILIRUBIN,TOTAL 1.6 mg/dL (0.2-1.3); BLOOD UREA NITROGEN 95 mg/dL (7-20); CALCIUM 9.3 mg/dL (8.4-10.2); CHLORIDE 91 mmol/L (98-107); CREATININE RESULT 1.32 mg/dL (0.52-1.25); GLUCOSE 149 mg/dL (75-110); POTASSIUM 4.3 mmol/L (3.6-5.0); SODIUM 141.8 mmol/L (137-145); TOTAL PROTEIN 5.7 g/dL (6.3-8.2)
[2016-10-23 04:49] LABS: ANION GAP 11 (5-19)
[2016-10-23 04:54] LABS: CREATINE KINASE MB 0.26 ng/mL (<4.55)
[2016-10-23 04:55] LABS: CREATINE KINASE < 20 U/L (30-135)
[2016-10-23 04:56] LABS: CARBON DIOXIDE 40 mmol/L (22-30)
[2016-10-23 04:59] LABS: TROPONIN I < 0.012 ng/mL
[2016-10-23] MEDS: LEVOTHYROXINE SODIUM 0.15 MG TABLET PO SCH (06:04)
[2016-10-23 07:06] LABS: ARTERIAL BLOOD BASE EXCESS 11.2 mmol/L; ARTERIAL BLOOD O2 SATURATION 96.6 % (94-98)
[2016-10-23] MEDS: SILDENAFIL CITRATE 20 MG TABLET PO SCH ×3 (09:22→17:07)
--- NOTE | 2016-10-23 10:30 | PDOC PROGRESS REPORT ---
Subjective Progress Note for:: 10/21/16 Physical Exam Vital Signs: Temp Pulse Resp BP Pulse Ox 98.0 F 65 19 124/68 92 10/21/16 04:38 10/21/16 07:00 10/21/16 04:38 10/21/16 04:38 10/21/16 04:38 Pulse Oximeter Continuous Start: 10/16/16 15: 36 Freq: RTQ4 Status: Complete Document 10/17/16 17:00 HCR (Rec: 10/17/16 18:40 HCR [id number]) Pulse Oximetry Assessment Equipment Usage Equipment Discontinued Continuous SpO2 Machine # 3 Intake & Output 10/20/16 10/21/16 10/22/16 06:59 06:59 06:59 Intake Total 986 1270 Balance 986 1270 Weight 127.8 kg 135 kg General appearance: PRESENT: no acute distress, disheveled, morbidly obese Head exam: PRESENT: atraumatic, normocephalic Eye exam: PRESENT: conjunctiva pale, EOMI Mouth exam: PRESENT: moist, neck supple Neck exam: ABSENT: carotid bruit, JVD, lymphadenopathy, thyromegaly Respiratory exam: PRESENT: decreased breath sounds, prolonged expiratory phas, rales, rhonchi, symmetrical, unlabored Cardiovascular exam: PRESENT: RRR, +S1, +S2 Pulses: PRESENT: normal radial pulses GI/Abdominal exam: PRESENT: normal bowel sounds, soft. ABSENT: distended, guarding, mass, organolmegaly, rebound, tenderness Rectal exam: PRESENT: deferred Gentrourinary exam: PRESENT: indwelling catheter Extremities exam: PRESENT: +2 edema, other - Chronic venous stasis disease Neurological exam: PRESENT: alert, awake Psychiatric exam: PRESENT: normal mood Skin exam: PRESENT: dry, warm Results Laboratory Results: 10/21/16 03:55 10/20/16 04:00 10/21/16 03:55 WBC 14.6 H RBC 4.29 Hgb 13.0 Hct 40.0 MCV 93 MCH 30.3 MCHC 32.5 RDW 17.6 H Plt Count 126 L 10/15/16 10/15/16 10/15/16 01:40 09:56 09:56 Creatine Kinase 46 CK-MB (CK-2) < 0.22 Troponin I 0.034 0.046 NT-Pro-B Natriuret Pep 10/15/16 10/15/16 10/16/16 20:30 20:30 05:39 Creatine Kinase 38 CK-MB (CK-2) < 0.22 Troponin I 0.065 NT-Pro-B Natriuret Pep 39666 H 10/19/16 10/20/16 03:49 04:00 Creatine Kinase CK-MB (CK-2) Troponin I NT-Pro-B Natriuret Pep 05194 H 25987 H Impressions: Cervical Spine CT 10/17/16 00:00 IMPRESSION: Cervical disc disease. Mild malalignment. Elbow X-Ray 10/18/16 00:00 IMPRESSION: Probable bursitis. Hand X-Ray 10/21/16 00:00 IMPRESSION: Osteoarthritis as above. Chest X-Ray 10/21/16 06:00 IMPRESSION: Stable chest, findings as above. Assessment & Plan - Diagnosis (1) Obstructive sleep apnea Is this a current diagnosis for this admission?: Yes (2) Obesity hypoventilation syndrome Is this a current diagnosis for this admission?: YesPlan: Hypercapnia compensated at this time (3) Heme positive stool Is this a current diagnosis for this admission?: Yes (4) Bacteremia due to Gram-negative bacteria Is this a current diagnosis for this admission?: Yes (5) CHF (congestive heart failure) Qualifiers: Congestive heart failure type: diastolic Congestive heart failure chronicity: acute on chronic Qualified Code(s): I50.33 - Acute on chronic diastolic (congestive) heart failure Is this a current diagnosis for this admission?: Yes (7) Pulmonary hypertension Is this a current diagnosis for this admission?: Yes (8) Atrial fibrillation Qualifiers: Atrial fibrillation type: chronic Qualified Code(s): I48.2 - Chronic atrial fibrillation Is this a current diagnosis for this admission?: Yes (9) Thrombocytopenia Is this a current diagnosis for this admission?: Yes (10) Tobacco dependency Is this a current diagnosis for this admission?: Yes
--- NOTE | 2016-10-23 10:33 | PDOC PROGRESS REPORT ---
Subjective Progress Note for:: 10/23/16 Subjective:: awake feels a little better Physical Exam Vital Signs: Temp Pulse Resp BP Pulse Ox 97.4 F 52 L 22 H 117/65 96 10/23/16 07:31 10/23/16 08:15 10/23/16 08:15 10/23/16 07:31 10/23/16 08:15 Pulse Oximeter Continuous Start: 10/16/16 15: 36 Freq: RTQ4 Status: Complete Document 10/17/16 17:00 HCR (Rec: 10/17/16 18:40 HCR [id number]) Pulse Oximetry Assessment Equipment Usage Equipment Discontinued Continuous SpO2 Machine # 3 Intake & Output 10/22/16 10/23/16 10/24/16 06:59 06:59 06:59 Intake Total 153 1660 Balance 153 1660 Weight 131.4 kg General appearance: PRESENT: no acute distress, cooperative, disheveled, morbidly obese Head exam: PRESENT: atraumatic, normocephalic Eye exam: PRESENT: conjunctiva pale, EOMI Mouth exam: PRESENT: dry mucosa, neck supple Neck exam: ABSENT: carotid bruit, JVD, lymphadenopathy, thyromegaly Respiratory exam: PRESENT: decreased breath sounds, prolonged expiratory phas, rales, rhonchi, symmetrical, unlabored Cardiovascular exam: PRESENT: irregular rhythm Pulses: PRESENT: normal radial pulses GI/Abdominal exam: PRESENT: normal bowel sounds, soft. ABSENT: distended, guarding, mass, organolmegaly, rebound, tenderness Rectal exam: PRESENT: deferred Gentrourinary exam: PRESENT: indwelling catheter Extremities exam: PRESENT: +2 edema, other - Changes consistent with chronic venous stasis Neurological exam: PRESENT: alert, awake Skin exam: PRESENT: dry, warm Results Laboratory Results: 10/23/16 04:09 10/23/16 04:09 10/22/16 10/23/16 10/23/16 17:26 04:09 04:09 WBC 10.9 H RBC 4.15 Hgb 12.7 Hct 38.6 MCV 93 MCH 30.6 MCHC 32.9 RDW 17.5 H Plt Count 221 Carbonic Acid HCO3/H2CO3 Ratio ABG pH ABG pCO2 ABG pO2 ABG HCO3 ABG O2 Saturation ABG Base Excess FiO2 Sodium 141.8 Potassium 4.3 Chloride 91 L Carbon Dioxide 40 H* Anion Gap 11 BUN 95 H Creatinine 1.32 H Est GFR ( Amer) 48 L Est GFR (Non-Af Amer) 40 L Glucose 149 H Calcium 9.3 Total Bilirubin 1.6 H AST 72 H ALT 57 H Alkaline Phosphatase 206 H Total Protein 5.7 L Albumin 2.7 L TSH Stool Occult Blood POSITIVE 10/23/16 10/23/16 04:09 06:15 WBC RBC Hgb Hct MCV MCH MCHC RDW Plt Count Carbonic Acid 1.70 H HCO3/H2CO3 Ratio 22:1 ABG pH 7.44 ABG pCO2 56.4 H ABG pO2 86.1 ABG HCO3 37.7 H ABG O2 Saturation 96.6 ABG Base Excess 11.2 FiO2 40% Sodium Potassium Chloride Carbon Dioxide Anion Gap BUN Creatinine Est GFR ( Amer) Est GFR (Non-Af Amer) Glucose Calcium Total Bilirubin AST ALT Alkaline Phosphatase Total Protein Albumin TSH 1.84 Stool Occult Blood 10/17/16 10:56 Blood Blood Culture - Final NO GROWTH IN 5 DAYS 10/17/16 08:47 Blood Blood Culture - Final NO GROWTH IN 5 DAYS 10/15/16 10/15/16 10/15/16 01:40 09:56 09:56 Creatine Kinase 46 CK-MB (CK-2) < 0.22 Troponin I 0.034 0.046 NT-Pro-B Natriuret Pep 10/15/16 10/15/16 10/16/16 20:30 20:30 05:39 Creatine Kinase 38 CK-MB (CK-2) < 0.22 Troponin I 0.065 NT-Pro-B Natriuret Pep 90986 H 10/19/16 10/20/16 10/22/16 03:49 04:00 22:03 Creatine Kinase < 20 L CK-MB (CK-2) Troponin I NT-Pro-B Natriuret Pep 93361 H 43667 H 10/22/16 10/23/16 10/23/16 22:03 04:09 04:09 Creatine Kinase < 20 L CK-MB (CK-2) 0.27 0.26 Troponin I < 0.012 < 0.012 NT-Pro-B Natriuret Pep Impressions: Cervical Spine CT 10/17/16 00:00 IMPRESSION: Cervical disc disease. Mild malalignment. Elbow X-Ray 10/18/16 00:00 IMPRESSION: Probable bursitis. Abdomen Ultrasound 10/21/16 00:00 IMPRESSION: LIMITED STUDY DUE TO PATIENT'S BODY HABITUS. FATTY INFILTRATION OF THE LIVER. THE LEFT KIDNEY IS NOT VISUALIZED WHICH MAY BE DUE TO THE TECHNICAL LIMITATIONS VERSUS ABSENCE OR ECTOPIC POSITION OF THE KIDNEY. NO OTHER SIGNIFICANT FINDING IN THE VISUALIZED ABDOMEN. Hand X-Ray 10/21/16 00:00 IMPRESSION: Osteoarthritis as above. Venous Doppler Study 10/22/16 00:00 IMPRESSION: NO EVIDENCE DVT OR SVT IN THE RIGHT ARM. Chest X-Ray 10/22/16 06:00 IMPRESSION: NO CHANGE IN APPEARANCE OF THE CHEST. Assessment & Plan - Diagnosis (1) Obstructive sleep apnea Is this a current diagnosis for this admission?: YesPlan: Chronic CO2 retention (2) Obesity hypoventilation syndrome Is this a current diagnosis for this admission?: YesPlan: Chronic CO2 retention (3) Heme positive stool Is this a current diagnosis for this admission?: Yes (4) Bacteremia due to Gram-negative bacteria Is this a current diagnosis for this admission?: Yes (5) CHF (congestive heart failure) Qualifiers: Congestive heart failure type: diastolic Congestive heart failure chronicity: acute on chronic Qualified Code(s): I50.33 - Acute on chronic diastolic (congestive) heart failure Is this a current diagnosis for this admission?: Yes (7) Pulmonary hypertension Is this a current diagnosis for this admission?: YesPlan: Secondary to long-standing obstructive sleep apnea and obesity hypoventilation syndrome (8) Atrial fibrillation Qualifiers: Atrial fibrillation type: chronic Qualified Code(s): I48.2 - Chronic atrial fibrillation Is this a current diagnosis for this admission?: Yes (9) Thrombocytopenia Is this a current diagnosis for this admission?: Yes (10) Tobacco dependency Is this a current diagnosis for this admission?: Yes
--- NOTE | 2016-10-23 10:34 | PDOC PROGRESS REPORT ---
Subjective Progress Note for:: 10/22/16 Subjective:: Feels about the same Physical Exam Vital Signs: Temp Pulse Resp BP Pulse Ox 97.4 F 52 L 22 H 117/65 96 10/23/16 07:31 10/23/16 08:15 10/23/16 08:15 10/23/16 07:31 10/23/16 08:15 Pulse Oximeter Continuous Start: 10/16/16 15: 36 Freq: RTQ4 Status: Complete Document 10/17/16 17:00 HCR (Rec: 10/17/16 18:40 HCR [id number]) Pulse Oximetry Assessment Equipment Usage Equipment Discontinued Continuous SpO2 Machine # 3 Intake & Output 10/22/16 10/23/16 10/24/16 06:59 06:59 06:59 Intake Total 153 1660 Balance 153 1660 Weight 131.4 kg General appearance: PRESENT: no acute distress, cooperative, disheveled, morbidly obese Head exam: PRESENT: atraumatic, normocephalic Eye exam: PRESENT: conjunctiva pale, EOMI Mouth exam: PRESENT: neck supple Neck exam: ABSENT: carotid bruit, JVD, lymphadenopathy, thyromegaly Respiratory exam: PRESENT: decreased breath sounds, prolonged expiratory phas, rales, rhonchi, symmetrical, unlabored Cardiovascular exam: PRESENT: irregular rhythm Pulses: PRESENT: normal radial pulses GI/Abdominal exam: PRESENT: normal bowel sounds, soft. ABSENT: distended, guarding, mass, organolmegaly, rebound, tenderness Rectal exam: PRESENT: deferred Gentrourinary exam: PRESENT: indwelling catheter Extremities exam: PRESENT: +2 edema, other - Chronic venous stasis changes Neurological exam: PRESENT: alert, awake Skin exam: PRESENT: dry Results Laboratory Results: 10/23/16 04:09 10/23/16 04:09 10/22/16 10/23/16 10/23/16 17:26 04:09 04:09 WBC 10.9 H RBC 4.15 Hgb 12.7 Hct 38.6 MCV 93 MCH 30.6 MCHC 32.9 RDW 17.5 H Plt Count 221 Carbonic Acid HCO3/H2CO3 Ratio ABG pH ABG pCO2 ABG pO2 ABG HCO3 ABG O2 Saturation ABG Base Excess FiO2 Sodium 141.8 Potassium 4.3 Chloride 91 L Carbon Dioxide 40 H* Anion Gap 11 BUN 95 H Creatinine 1.32 H Est GFR ( Amer) 48 L Est GFR (Non-Af Amer) 40 L Glucose 149 H Calcium 9.3 Total Bilirubin 1.6 H AST 72 H ALT 57 H Alkaline Phosphatase 206 H Total Protein 5.7 L Albumin 2.7 L TSH Stool Occult Blood POSITIVE 10/23/16 10/23/16 04:09 06:15 WBC RBC Hgb Hct MCV MCH MCHC RDW Plt Count Carbonic Acid 1.70 H HCO3/H2CO3 Ratio 22:1 ABG pH 7.44 ABG pCO2 56.4 H ABG pO2 86.1 ABG HCO3 37.7 H ABG O2 Saturation 96.6 ABG Base Excess 11.2 FiO2 40% Sodium Potassium Chloride Carbon Dioxide Anion Gap BUN Creatinine Est GFR ( Amer) Est GFR (Non-Af Amer) Glucose Calcium Total Bilirubin AST ALT Alkaline Phosphatase Total Protein Albumin TSH 1.84 Stool Occult Blood 10/17/16 10:56 Blood Blood Culture - Final NO GROWTH IN 5 DAYS 10/17/16 08:47 Blood Blood Culture - Final NO GROWTH IN 5 DAYS 10/15/16 10/15/16 10/15/16 01:40 09:56 09:56 Creatine Kinase 46 CK-MB (CK-2) < 0.22 Troponin I 0.034 0.046 NT-Pro-B Natriuret Pep 10/15/16 10/15/16 10/16/16 20:30 20:30 05:39 Creatine Kinase 38 CK-MB (CK-2) < 0.22 Troponin I 0.065 NT-Pro-B Natriuret Pep 33138 H 10/19/16 10/20/16 10/22/16 03:49 04:00 22:03 Creatine Kinase < 20 L CK-MB (CK-2) Troponin I NT-Pro-B Natriuret Pep 51754 H 66585 H 10/22/16 10/23/16 10/23/16 22:03 04:09 04:09 Creatine Kinase < 20 L CK-MB (CK-2) 0.27 0.26 Troponin I < 0.012 < 0.012 NT-Pro-B Natriuret Pep Impressions: Cervical Spine CT 10/17/16 00:00 IMPRESSION: Cervical disc disease. Mild malalignment. Elbow X-Ray 10/18/16 00:00 IMPRESSION: Probable bursitis. Abdomen Ultrasound 10/21/16 00:00 IMPRESSION: LIMITED STUDY DUE TO PATIENT'S BODY HABITUS. FATTY INFILTRATION OF THE LIVER. THE LEFT KIDNEY IS NOT VISUALIZED WHICH MAY BE DUE TO THE TECHNICAL LIMITATIONS VERSUS ABSENCE OR ECTOPIC POSITION OF THE KIDNEY. NO OTHER SIGNIFICANT FINDING IN THE VISUALIZED ABDOMEN. Hand X-Ray 10/21/16 00:00 IMPRESSION: Osteoarthritis as above. Venous Doppler Study 10/22/16 00:00 IMPRESSION: NO EVIDENCE DVT OR SVT IN THE RIGHT ARM. Chest X-Ray 10/22/16 06:00 IMPRESSION: NO CHANGE IN APPEARANCE OF THE CHEST. Assessment & Plan - Diagnosis (1) Obstructive sleep apnea Is this a current diagnosis for this admission?: Yes (2) Obesity hypoventilation syndrome Is this a current diagnosis for this admission?: Yes (3) Heme positive stool Is this a current diagnosis for this admission?: Yes (4) Bacteremia due to Gram-negative bacteria Is this a current diagnosis for this admission?: Yes (5) CHF (congestive heart failure) Qualifiers: Congestive heart failure type: diastolic Congestive heart failure chronicity: acute on chronic Qualified Code(s): I50.33 - Acute on chronic diastolic (congestive) heart failure Is this a current diagnosis for this admission?: Yes (7) Pulmonary hypertension Is this a current diagnosis for this admission?: Yes (8) Atrial fibrillation Qualifiers: Atrial fibrillation type: chronic Qualified Code(s): I48.2 - Chronic atrial fibrillation Is this a current diagnosis for this admission?: Yes (9) Thrombocytopenia Is this a current diagnosis for this admission?: Yes (10) Tobacco dependency Is this a current diagnosis for this admission?: Yes
[2016-10-23 10:44] LABS: CREATINE KINASE MB 0.26 ng/mL (<4.55)
[2016-10-23] MEDS: THIAMINE HCL 100 MG TABLET PO SCH (10:45)
[2016-10-23] MEDS: FUROSEMIDE 40 MG TABLET PO SCH ×2 (10:45→17:40)
[2016-10-23] MEDS: ATENOLOL 50 MG TABLET PO SCH (10:46)
[2016-10-23] MEDS: PREDNISONE 20 MG TABLET PO SCH ×2 (10:46→17:40)
[2016-10-23] MEDS: GABAPENTIN 300 MG CAPSULE PO SCH ×2 (10:46→22:02)
[2016-10-23] MEDS: NYSTATIN TOPICAL POWDER 15 GM TP SCH ×2 (10:46→17:42)
[2016-10-23] MEDS: MULTIVITAMIN TABLET PO SCH (10:46)
[2016-10-23] MEDS: FOLIC ACID 1 MG TABLET PO SCH (10:46)
[2016-10-23] MEDS: LEVOFLOXACIN 250 MG TABLET PO SCH (10:46)
[2016-10-23] MEDS: POTASSIUM CHLORIDE 10 MEQ TABLET.SA PO SCH ×2 (10:46→17:40)
[2016-10-23 10:50] LABS: TROPONIN I < 0.012 ng/mL
--- NOTE | 2016-10-23 13:22 | PDOC PROGRESS REPORT ---
Subjective Progress Note for:: 10/23/16 Subjective:: Patient feels a lot better; she is off BiPAP comfortable on nasal cannula. She has no chest pain Physical Exam Vital Signs: Temp Pulse Resp BP Pulse Ox 97.4 F 101 H 17 111/69 95 10/23/16 07:31 10/23/16 11:37 10/23/16 11:37 10/23/16 11:37 10/23/16 11:37 Pulse Oximeter Continuous Start: 10/16/16 15: 36 Freq: RTQ4 Status: Complete Document 10/17/16 17:00 HCR (Rec: 10/17/16 18:40 HCR [id number]) Pulse Oximetry Assessment Equipment Usage Equipment Discontinued Continuous SpO2 Machine # 3 Intake & Output 10/22/16 10/23/16 10/24/16 00:59 00:59 00:59 Intake Total 155 1013 650 Balance 155 1013 650 Weight 135 kg 131.4 kg General appearance: PRESENT: no acute distress, morbidly obese Head exam: PRESENT: atraumatic, normocephalic Eye exam: PRESENT: conjunctiva pink, EOMI, PERRLA. ABSENT: scleral icterus Ear exam: PRESENT: normal external ear exam Mouth exam: PRESENT: moist, tongue midline Neck exam: ABSENT: carotid bruit, JVD, lymphadenopathy, thyromegaly Respiratory exam: PRESENT: decreased breath sounds. ABSENT: rales, rhonchi, wheezes Cardiovascular exam: PRESENT: RRR. ABSENT: diastolic murmur, rubs, systolic murmur Pulses: PRESENT: normal dorsalis pedis pul Vascular exam: PRESENT: normal capillary refill GI/Abdominal exam: PRESENT: normal bowel sounds, soft. ABSENT: distended, guarding, mass, organolmegaly, rebound, tenderness Rectal exam: PRESENT: deferred Extremities exam: PRESENT: full ROM. ABSENT: calf tenderness, clubbing, pedal edema Neurological exam: PRESENT: alert, awake, oriented to person, oriented to place , oriented to time, oriented to situation, CN II-XII grossly intact. ABSENT: motor sensory deficit Psychiatric exam: PRESENT: appropriate affect, normal mood. ABSENT: homicidal ideation, suicidal ideation Skin exam: PRESENT: dry, intact, warm. ABSENT: cyanosis, rash Results Laboratory Results: 10/23/16 04:09 10/23/16 04:09 10/22/16 10/23/16 10/23/16 17:26 04:09 04:09 WBC 10.9 H RBC 4.15 Hgb 12.7 Hct 38.6 MCV 93 MCH 30.6 MCHC 32.9 RDW 17.5 H Plt Count 221 Carbonic Acid HCO3/H2CO3 Ratio ABG pH ABG pCO2 ABG pO2 ABG HCO3 ABG O2 Saturation ABG Base Excess FiO2 Sodium 141.8 Potassium 4.3 Chloride 91 L Carbon Dioxide 40 H* Anion Gap 11 BUN 95 H Creatinine 1.32 H Est GFR ( Amer) 48 L Est GFR (Non-Af Amer) 40 L Glucose 149 H Calcium 9.3 Total Bilirubin 1.6 H AST 72 H ALT 57 H Alkaline Phosphatase 206 H Total Protein 5.7 L Albumin 2.7 L TSH Stool Occult Blood POSITIVE 10/23/16 10/23/16 04:09 06:15 WBC RBC Hgb Hct MCV MCH MCHC RDW Plt Count Carbonic Acid 1.70 H HCO3/H2CO3 Ratio 22:1 ABG pH 7.44 ABG pCO2 56.4 H ABG pO2 86.1 ABG HCO3 37.7 H ABG O2 Saturation 96.6 ABG Base Excess 11.2 FiO2 40% Sodium Potassium Chloride Carbon Dioxide Anion Gap BUN Creatinine Est GFR ( Amer) Est GFR (Non-Af Amer) Glucose Calcium Total Bilirubin AST ALT Alkaline Phosphatase Total Protein Albumin TSH 1.84 Stool Occult Blood 10/17/16 10:56 Blood Blood Culture - Final NO GROWTH IN 5 DAYS 10/15/16 10/15/16 10/15/16 01:40 09:56 09:56 Creatine Kinase 46 CK-MB (CK-2) < 0.22 Troponin I 0.034 0.046 NT-Pro-B Natriuret Pep 10/15/16 10/15/16 10/16/16 20:30 20:30 05:39 Creatine Kinase 38 CK-MB (CK-2) < 0.22 Troponin I 0.065 NT-Pro-B Natriuret Pep 71242 H 10/19/16 10/20/16 10/22/16 03:49 04:00 22:03 Creatine Kinase < 20 L CK-MB (CK-2) Troponin I NT-Pro-B Natriuret Pep 80851 H 62037 H 10/22/16 10/23/1617 22:03 04:09 04:09 Creatine Kinase < 20 L CK-MB (CK-2) 0.27 0.26 Troponin I < 0.012 < 0.012 NT-Pro-B Natriuret Pep 10/23/16 10/23/16 10:02 10:02 Creatine Kinase < 20 L CK-MB (CK-2) 0.26 Troponin I < 0.012 NT-Pro-B Natriuret Pep Impressions: Cervical Spine CT 10/17/16 00:00 IMPRESSION: Cervical disc disease. Mild malalignment. Elbow X-Ray 10/18/16 00:00 IMPRESSION: Probable bursitis. Abdomen Ultrasound 10/21/16 00:00 IMPRESSION: LIMITED STUDY DUE TO PATIENT'S BODY HABITUS. FATTY INFILTRATION OF THE LIVER. THE LEFT KIDNEY IS NOT VISUALIZED WHICH MAY BE DUE TO THE TECHNICAL LIMITATIONS VERSUS ABSENCE OR ECTOPIC POSITION OF THE KIDNEY. NO OTHER SIGNIFICANT FINDING IN THE VISUALIZED ABDOMEN. Hand X-Ray 10/21/16 00:00 IMPRESSION: Osteoarthritis as above. Venous Doppler Study 10/22/16 00:00 IMPRESSION: NO EVIDENCE DVT OR SVT IN THE RIGHT ARM. Chest X-Ray 10/22/16 06:00 IMPRESSION: NO CHANGE IN APPEARANCE OF THE CHEST. Assessment & Plan - Diagnosis (1) Acute and chronic respiratory failure with hypercapnia Is this a current diagnosis for this admission?: Yes (2) COPD (chronic obstructive pulmonary disease) Is this a current diagnosis for this admission?: Yes (3) Moderate to severe pulmonary hypertension Is this a current diagnosis for this admission?: Yes (4) Obesity hypoventilation syndrome Is this a current diagnosis for this admission?: Yes (5) Obstructive sleep apnea Is this a current diagnosis for this admission?: Yes (6) Anticoagulated on Coumadin Is this a current diagnosis for this admission?: Yes (7) Atrial fibrillation Qualifiers: Atrial fibrillation type: chronic Qualified Code(s): I48.2 - Chronic atrial fibrillation Is this a current diagnosis for this admission?: Yes - Time Time Spent with patient: Continue present management Patient is awaiting transfer to SNF facility on Wednesday Time Spent with patient: 25-34 minutes
[2016-10-23] MEDS: ATORVASTATIN CALCIUM 40 MG TABLET PO SCH (22:02)
[2016-10-23] MEDS: WARFARIN SODIUM 2.5 MG TABLET PO SCH (22:03)
--- NOTE | 2016-10-24 02:53 | PROGRESS NOTE E ---
Progress Note NAME: MARIANO HENRY : 1945 AGE: 71Y DATE: 10/23/2016 ROOM: 407 Note, I visited the patient from 10 a.m. to 10:35 a.m. SUBJECTIVE: The patient denies any chest pain or discomfort. She states she is feeling sleepy. She states that her shortness of breath with sildenafil has improved. She has no PND or orthopnea. There is no leg edema. There is chronic venous stasis dermatitis. She remains in atrial fibrillation. There is bleeding on Coumadin. There are no TIA or CVA symptoms. OBJECTIVE: GENERAL: The patient is moderately obese, at present lying down, in no acute distress. She is sleepy. She earlier was on BiPAP. Now, the patient is on nasal cannula. VITAL SIGNS: Earlier, blood pressure was 117/65, pulse 72 beats per minute, temperature of 97.4, O2 sats were 99% with respirations of 17 on BiPAP with FiO2 of 40%. HEENT: Head is atraumatic, normocephalic. EYES: Pupils are equal, round, regular, reactive to light and accommodation. Extraocular movements are normal. Sclerae are without any icterus. Conjunctivae are pink. ENT: Negative. NECK: Supple. There is no JVD. Carotids are equal. There is no bruit. There is no cervical or axillary lymphadenopathy. There is no goiter. Carotids are equal without any bruits. LUNGS: Showed dullness at the left base with few crackles, which are much less then yesterday. Also, rest of the lung showed diminished air entry with prolonged expiration. The rest of the lungs on percussion show hyperresonance. HEART: S1 and S2 are heard. S1 has a variable intensity. There is no S3 gallop. There is no S4 gallop. There is systolic murmur in the aortic area and pansystolic murmur in the mitral area. There is no rub. ABDOMEN: Soft, obese, and nontender. There is no hepatosplenomegaly. Bowel sounds are well heard. EXTREMITIES: Pedal pulses are diminished. Femorals are diminished. There is no femoral bruit. There is no clubbing or cyanosis. There is no pedal edema. There are chronic venous stasis dermatitis changes. There is no evidence of cellulitis. NEUROLOGIC: The patient has bilateral lower extremity weakness from cauda equina syndrome, but the patient is slightly sleepy today, but otherwise oriented x3. PSYCHIATRIC: The patient's judgment and insight are intact. Her affect is normal. She does not appear to be agitated or depressed. INTAKE/OUTPUT: The patient's intake and output is not accurate. DIAGNOSTIC TEST RESULTS: The patient's white count is 10,900; hemoglobin is 12.7; hematocrit is 38.6; platelet count is 221,000. The patient's sodium is 141.8, potassium 4.3, chloride 91, and CO2 is 40. The patient's BUN is 95, creatinine 1.32, GFR is reduced to 40 mL, which is chronic kidney disease stage III. Glucose is 149. The patient's liver function tests showed elevated AST of 72, ALT of 57, and alkaline phosphatase of 206. Her cardiac enzymes were negative x1 this morning. Total protein is 5.7. The patient's ProTime is 28.2, and INR is 2.52. ASSESSMENT: 1. PASTEURELLA (GRAM NEGATIVE) INFECTION, TREATED ON ANTIBIOTICS. 2. PNEUMONIA IN LEFT BASE WITH SMALL EFFUSION. 3. MILD CONGESTIVE HEART FAILURE, DUE TO VOLUME OVERLOAD. NOTE, AT PRESENT, THE PATIENT IS NOT DECOMPENSATED. 4. ACUTE KIDNEY INJURY, THIS IS IMPROVED WITH HYDRATION, BUT THE PATIENT NOW HAS CHRONIC KIDNEY DISEASE, STAGE III. AVOID NEPHROTOXIC DRUGS. 5. SEVERE PULMONARY HYPERTENSION WITH RIGHT VENTRICULAR SYSTOLIC PRESSURE OF 70-75 MMHG. NOTE THAT THE PATIENT'S SHORTNESS OF BREATH IS IMPROVED WITH SILDENAFIL. CONTINUE SILDENAFIL. 6. CONGESTIVE HEART FAILURE. AT PRESENT SEEMS TO BE COMPENSATED. THIS IS [id number] SYSTOLIC AND DIASTOLIC HEART FAILURE. 7. THERAPEUTIC INR, ON COUMADIN. 8. CHRONIC ATRIAL FIBRILLATION WITH CONTROLLED VENTRICULAR RESPONSE. 9. THROMBOCYTOPENIA, RESOLVED. PLATELET COUNT HAS COME UP TO NORMAL LIMITS. 10. RIGHT ELBOW PAIN AND RIGHT HAND PAIN, SLIGHTLY IMPROVED. THE PATIENT IS ON COLD COMPRESSES FOR THAT. 11. TOBACCO ABUSE. THE PATIENT HAS BEEN COUNSELED TO STOP SMOKING. 12. HYPOTHYROIDISM. PLAN IS TO CONTINUE THE PATIENT IS ON THYROID REPLACEMENT DRUGS. 13. CHRONIC OBSTRUCTIVE PULMONARY DISEASE. THE PATIENT IS ON XOPENEX, SEEMS TO BE DOING WELL AND SHE ALSO USES CPAP ESPECIALLY AT NIGHT AND EVERY NOW AND THEN. 14. NECK PAIN, THIS IS RESOLVED. PLAN: As mentioned earlier, continue Coumadin, continue Lasix, continue Xopenex, and continue antibiotics. Note, orthopedics is managing the patient's right wrist and right elbow pain. Note, 35 minutes spent with the patient with more than 50% of time spent in direct patient care. The patient's medications were reviewed. Decision making was of moderate complexity. Other care giving providers discussed and plan of care arrived at. We will follow with you. DICTATING PHYSICIAN: THMOAS BLANCA M.D. [id number] MEET#: [id number] ID: [id number] JOB#: [id number] ACCT: [id number] cc: >
[2016-10-24] MEDS: LEVOTHYROXINE SODIUM 0.15 MG TABLET PO SCH (05:42)
[2016-10-24 05:56] LABS: PROTHROMBIN TIME 29.3 SEC (11.4-15.4)
[2016-10-24] MEDS: SILDENAFIL CITRATE 20 MG TABLET PO SCH ×3 (08:16→17:23)
[2016-10-24] MEDS: ATENOLOL 50 MG TABLET PO SCH (09:51)
[2016-10-24] MEDS: MULTIVITAMIN TABLET PO SCH (09:53)
[2016-10-24] MEDS: FUROSEMIDE 40 MG TABLET PO SCH ×2 (09:53→17:22)
[2016-10-24] MEDS: THIAMINE HCL 100 MG TABLET PO SCH (09:54)
[2016-10-24] MEDS: LEVOFLOXACIN 250 MG TABLET PO SCH (09:54)
[2016-10-24] MEDS: NYSTATIN TOPICAL POWDER 15 GM TP SCH ×2 (09:54→17:22)
[2016-10-24] MEDS: POTASSIUM CHLORIDE 10 MEQ TABLET.SA PO SCH ×2 (09:54→17:23)
[2016-10-24] MEDS: FOLIC ACID 1 MG TABLET PO SCH (09:54)
[2016-10-24] MEDS: PREDNISONE 20 MG TABLET PO SCH ×2 (09:54→17:22)
[2016-10-24] MEDS: GABAPENTIN 300 MG CAPSULE PO SCH ×2 (09:54→21:33)
--- NOTE | 2016-10-24 13:03 | PROGRESS NOTE E ---
Progress Note NAME: MARIANO HENRY : 1945 AGE: 71Y DATE: 10/24/2016 ROOM: 407 SUBJECTIVE: The patient was seen from 8:00 a.m. to 8:30 a.m. Thirty minutes were spent on this patient. The patient denies any chest pain or discomfort. She states that her shortness of breath is much better with sildenafil. She still is in A-fib and sometimes, she bradys down into the 30's with a stable blood pressure and with no symptoms. There is no PND or orthopnea. There is no leg edema. There are no TIA or CVA symptoms. There is no bleeding on Coumadin. OBJECTIVE: GENERAL: The patient is morbidly obese, in no acute distress. She is well groomed. VITAL SIGNS: She is afebrile with a temperature of 97.3 degrees Fahrenheit orally, pulse is 55 beats per minute, blood pressure is 113/58, respirations are 18 per minute, O2 sats are 95% on 4 L nasal cannula. HEAD: Atraumatic, normocephalic. EYES: Pupils are equal, round, regular, reactive to light and accommodation. Extraocular movements are normal. There is no conjunctival pallor. There is no scleral icterus. EARS: Tympanic membranes are intact. External auditory canals are clear. NOSE: There is no deviated nasal septum. There is no inflammation of the nasal mucous membranes. THROAT: There is no redness of the oropharynx. There are no exudates in the throat. SKIN: There are no skin rashes. There are no petechiae or ecchymosis. There are no skin lesions. There are venous stasis dermatitis changes in the lower extremities. NECK: Supple. There is no JVD. Carotids are equal. There is no bruit. There is no goiter. There is no lymphadenopathy. Trachea is central. LUNGS: Show diminished air entry and dullness in the left base with a few crackles about this area. The rest of the lungs show diminished air entry with prolonged expiration on auscultation. There is no rhonchi or wheezing. On percussion, there is dullness. HEART: S1 and S2 are heard. There is variable S1 intensity. There is no S3 gallop. There is no S4 gallop. There is systolic murmur in the left sternal border and the apex. There is no rub. ABDOMEN: Soft, obese, and nontender. There is no hepatosplenomegaly. Bowel sounds are well heard. EXTREMITIES: Note that the patient's right elbow and right hand pain are much better. She just has a little discomfort and the swelling has gone down. Femorals are diminished. There are no femoral bruits. Leg pulses are diminished. There is no cyanosis or clubbing. There is no cellulitis. There are chronic venous stasis dermatitis changes in both lower extremities. There is no calf tenderness. CENTRAL NERVOUS SYSTEM: The patient is conscious, awake, alert, and oriented x3 with no focal deficits. PSYCHIATRIC: The patient's judgment and insight are intact. Her affect is normal. DIAGNOSTIC DATA: The patient's pro time is 29.3, INR is 2.63. ASSESSMENT: 1. PASTEURELLA GRAM-NEGATIVE INFECTION, TREATED ON ANTIBIOTICS, IMPROVING 2. PNEUMONIA IN LEFT BASE WITH A SMALL EFFUSION, BEING TREATED WITH ANTIBIOTICS. 3. MILD CONGESTIVE HEART FAILURE, DUE TO VOLUME OVERLOAD. AT PRESENT, THE PATIENT IS COMPENSATED AND THERE IS NO EVIDENCE OF HEART FAILURE. 4. ACUTE KIDNEY INJURY, THIS IS IMPROVED WITH HYDRATION, BUT THE PATIENT HAS CHRONIC KIDNEY DISEASE, STAGE 3. THE PLAN IS TO AVOID NEPHROTOXIC DRUGS. 5. SEVERE PULMONARY HYPERTENSION WITH RIGHT VENTRICULAR SYSTOLIC PRESSURE OF 70-75 MMHG. NOTE THAT THE PATIENT'S SHORTNESS OF BREATH IS IMPROVED WITH SILDENAFIL. CONTINUE SILDENAFIL. 6. CONGESTIVE HEART FAILURE. AT PRESENT, SEEMS TO BE COMPENSATED. THIS IS SECONDARY TO ACUTE ON CHRONIC DIASTOLIC HEART FAILURE AND ALSO SECONDARY TO VOLUME OVERLOAD. AT PRESENT, COMPENSATED. 7. THERAPEUTIC INR, ON COUMADIN. 8. CHRONIC ATRIAL FIBRILLATION WITH CONTROLLED VENTRICULAR RESPONSE, BUT AT TIMES, THE HEART RATE GOING DOWN INTO THE 30'S WITHOUT SYMPTOMS. WILL OBSERVE. CONTINUE THE PATIENT ON CURRENT DOSE OF ATENOLOL. I WOULD WATCH FOR ANY SYMPTOMATIC BRADYCARDIA. 9. THROMBOCYTOPENIA, RESOLVED. THE LAST PLATELET COUNT WAS WITHIN NORMAL LIMITS. 10. RIGHT ELBOW PAIN SECONDARY OLECRANITIS AND RIGHT HAND PAIN DUE TO ARTHRITIS, VASTLY IMPROVED. 11. TOBACCO ABUSE. THE PATIENT HAS BEEN COUNSELED TO STOP SMOKING. 12. HYPOTHYROIDISM. THE PLAN IS TO CONTINUE THE PATIENT ON THYROID REPLACEMENT DRUGS, WHICH IS BEING DONE NOW. 13. CHRONIC OBSTRUCTIVE PULMONARY DISEASE. THE PATIENT IS ON XOPENEX AT PRESENT. NO EVIDENCE OF ACUTE EXACERBATION OF COPD. THE PATIENT'S COPD IS STABLE. SHE SEEMS TO BE DOING WELL AND SHE ALSO USES CPAP, ESPECIALLY AT NIGHT. PLAN: Continue the patient on Coumadin. Monitor the INR. Continue Lasix. Continue Xopenex. Continue antibiotics. Continue the patient on atenolol. Note that the patient is on p.o. Lasix at present. The greatest challenge is to get the patient out of bed and ambulating with physical therapy. TIME SPENT: Note that 30 minutes were spent on this patient with more than 50% of time spent in direct patient care, review of the patient's medications, and discussions with other physicians, formulating a plan of care/management of the patient. Will follow with you. Thanking you. DICTATING PHYSICIAN: THOMAS BLANCA M.D. [id number] HARDIKY#: [id number] ID: [id number] JOB#: [id number] ACCT: [id number] cc: > MTDD
--- NOTE | 2016-10-24 13:22 | PDOC PROGRESS REPORT ---
Subjective Progress Note for:: 10/24/16 Subjective:: Patient seen around today for recheck of her right hand and elbow. She states both are doing much better. Still has some soreness in the hand but is slowly seeing improvement. Physical Exam Vital Signs: Temp Pulse Resp BP Pulse Ox 98.1 F 56 L 18 108/63 97 10/24/16 12:00 10/24/16 12:00 10/24/16 12:00 10/24/16 12:00 10/24/16 12:00 Pulse Oximeter Continuous Start: 10/16/16 15: 36 Freq: RTQ4 Status: Complete Document 10/17/16 17:00 HCR (Rec: 10/17/16 18:40 HCR [id number]) Pulse Oximetry Assessment Equipment Usage Equipment Discontinued Continuous SpO2 Machine # 3 Intake & Output 10/23/16 10/24/16 10/25/16 06:59 06:59 06:59 Intake Total 1660 1345 Balance 1660 1345 Weight 131.4 kg 130.8 kg Musculoskeletal exam: PRESENT: other - Right hand: Swelling and ecchymosis dorsally along the hand improving. Tenderness along the MCP joints and CMC joint. 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 Olecranon bursitis showing improvement without erythema and minimal tenderness to palpation. No pain with elbow range of motion. Results Laboratory Results: 10/23/16 04:09 10/23/16 04:09 10/15/16 10/15/16 10/15/16 01:40 09:56 09:56 Creatine Kinase 46 CK-MB (CK-2) < 0.22 Troponin I 0.034 0.046 NT-Pro-B Natriuret Pep 10/15/16 10/15/16 10/16/16 20:30 20:30 05:39 Creatine Kinase 38 CK-MB (CK-2) < 0.22 Troponin I 0.065 NT-Pro-B Natriuret Pep 91104 H 10/19/16 10/20/16 10/22/16 03:49 04:00 22:03 Creatine Kinase < 20 L CK-MB (CK-2) Troponin I NT-Pro-B Natriuret Pep 24029 H 17907 H 10/22/16 10/23/16 10/23/16 22:03 04:09 04:09 Creatine Kinase < 20 L CK-MB (CK-2) 0.27 0.26 Troponin I < 0.012 < 0.012 NT-Pro-B Natriuret Pep 10/23/16 10/23/16 10:02 10:02 Creatine Kinase < 20 L CK-MB (CK-2) 0.26 Troponin I < 0.012 NT-Pro-B Natriuret Pep Impressions: Cervical Spine CT 10/17/16 00:00 IMPRESSION: Cervical disc disease. Mild malalignment. Elbow X-Ray 10/18/16 00:00 IMPRESSION: Probable bursitis. Abdomen Ultrasound 10/21/16 00:00 IMPRESSION: LIMITED STUDY DUE TO PATIENT'S BODY HABITUS. FATTY INFILTRATION OF THE LIVER. THE LEFT KIDNEY IS NOT VISUALIZED WHICH MAY BE DUE TO THE TECHNICAL LIMITATIONS VERSUS ABSENCE OR ECTOPIC POSITION OF THE KIDNEY. NO OTHER SIGNIFICANT FINDING IN THE VISUALIZED ABDOMEN. Hand X-Ray 10/21/16 00:00 IMPRESSION: Osteoarthritis as above. Venous Doppler Study 10/22/16 00:00 IMPRESSION: NO EVIDENCE DVT OR SVT IN THE RIGHT ARM. Chest X-Ray 10/22/16 06:00 IMPRESSION: NO CHANGE IN APPEARANCE OF THE CHEST. Assessment & Plan - Diagnosis (1) Olecranon bursitis, right elbow Is this a current diagnosis for this admission?: YesPlan: Patient's olecranon bursitis is improving with conservative management. As for her right hand she has diffuse degenerative changes throughout the hand. I have recommended warm soaks but she should also continue range of motion exercises. Patient may follow-up as an outpatient for further evaluation and workup.
--- NOTE | 2016-10-24 15:15 | PDOC PROGRESS REPORT ---
Subjective Progress Note for:: 10/24/16 Subjective:: Patient has no specific complaints; her breathing is improved On the monitor she remains in atrial fibrillation but with slow ventricular rate She did have bradycardia at 30-40 last night we have held atenolol today And decreased the dose to 25 mg daily starting tomorrow Physical Exam Vital Signs: Temp Pulse Resp BP Pulse Ox 98.1 F 56 L 18 108/63 97 10/24/16 12:00 10/24/16 12:00 10/24/16 12:00 10/24/16 12:00 10/24/16 12:00 Pulse Oximeter Continuous Start: 10/16/16 15: 36 Freq: RTQ4 Status: Complete Document 10/17/16 17:00 HCR (Rec: 10/17/16 18:40 HCR [id number]) Pulse Oximetry Assessment Equipment Usage Equipment Discontinued Continuous SpO2 Machine # 3 Intake & Output 10/23/16 10/24/16 10/25/16 00:59 00:59 00:59 Intake Total 1013 1985 10 Balance 1013 1985 10 Weight 131.4 kg 130.8 kg General appearance: PRESENT: no acute distress, morbidly obese Head exam: PRESENT: atraumatic, normocephalic Eye exam: PRESENT: conjunctiva pink, EOMI, PERRLA. ABSENT: scleral icterus Neck exam: ABSENT: carotid bruit, JVD, lymphadenopathy, thyromegaly Respiratory exam: PRESENT: decreased breath sounds, wheezes. ABSENT: accessory muscle use Cardiovascular exam: PRESENT: irregular rhythm, systolic murmur Pulses: PRESENT: normal dorsalis pedis pul GI/Abdominal exam: PRESENT: ascites Extremities exam: PRESENT: full ROM. ABSENT: calf tenderness, clubbing, pedal edema Neurological exam: PRESENT: alert, awake, oriented to person, oriented to place , oriented to time, oriented to situation, CN II-XII grossly intact. ABSENT: motor sensory deficit Results Laboratory Results: 10/23/16 04:09 10/23/16 04:09 10/15/16 10/15/16 10/15/16 01:40 09:56 09:56 Creatine Kinase 46 CK-MB (CK-2) < 0.22 Troponin I 0.034 0.046 NT-Pro-B Natriuret Pep 10/15/16 10/15/16 10/16/16 20:30 20:30 05:39 Creatine Kinase 38 CK-MB (CK-2) < 0.22 Troponin I 0.065 NT-Pro-B Natriuret Pep 32337 H 10/19/16 10/20/16 10/22/16 03:49 04:00 22:03 Creatine Kinase < 20 L CK-MB (CK-2) Troponin I NT-Pro-B Natriuret Pep 27410 H 98639 H 10/22/16 10/23/16 10/23/16 22:03 04:09 04:09 Creatine Kinase < 20 L CK-MB (CK-2) 0.27 0.26 Troponin I < 0.012 < 0.012 NT-Pro-B Natriuret Pep 10/23/16 10/23/16 10:02 10:02 Creatine Kinase < 20 L CK-MB (CK-2) 0.26 Troponin I < 0.012 NT-Pro-B Natriuret Pep Impressions: Cervical Spine CT 10/17/16 00:00 IMPRESSION: Cervical disc disease. Mild malalignment. Elbow X-Ray 10/18/16 00:00 IMPRESSION: Probable bursitis. Abdomen Ultrasound 10/21/16 00:00 IMPRESSION: LIMITED STUDY DUE TO PATIENT'S BODY HABITUS. FATTY INFILTRATION OF THE LIVER. THE LEFT KIDNEY IS NOT VISUALIZED WHICH MAY BE DUE TO THE TECHNICAL LIMITATIONS VERSUS ABSENCE OR ECTOPIC POSITION OF THE KIDNEY. NO OTHER SIGNIFICANT FINDING IN THE VISUALIZED ABDOMEN. Hand X-Ray 10/21/16 00:00 IMPRESSION: Osteoarthritis as above. Venous Doppler Study 10/22/16 00:00 IMPRESSION: NO EVIDENCE DVT OR SVT IN THE RIGHT ARM. Chest X-Ray 10/22/16 06:00 IMPRESSION: NO CHANGE IN APPEARANCE OF THE CHEST. Assessment & Plan - Diagnosis (1) Acute and chronic respiratory failure with hypercapnia Is this a current diagnosis for this admission?: Yes (2) COPD (chronic obstructive pulmonary disease) Is this a current diagnosis for this admission?: Yes (3) Moderate to severe pulmonary hypertension Is this a current diagnosis for this admission?: Yes (4) Obesity hypoventilation syndrome Is this a current diagnosis for this admission?: Yes (5) Obstructive sleep apnea Is this a current diagnosis for this admission?: Yes (6) Anticoagulated on Coumadin Is this a current diagnosis for this admission?: Yes (7) Atrial fibrillation Qualifiers: Atrial fibrillation type: chronic Qualified Code(s): I48.2 - Chronic atrial fibrillation Is this a current diagnosis for this admission?: Yes - Time Time Spent with patient: Patient's condition in general stable We will continue the same management Monitor heart rate Time Spent with patient: 25-34 minutes
[2016-10-24] MEDS: WARFARIN SODIUM 2.5 MG TABLET PO SCH (21:33)
[2016-10-24] MEDS: ATORVASTATIN CALCIUM 40 MG TABLET PO SCH (21:33)
[2016-10-24] MEDS: ACETAMINOPHEN 325 MG TABLET PO PRN (21:36)
[2016-10-25 06:00] LABS: PROTHROMBIN TIME 27.7 SEC (11.4-15.4)
[2016-10-25] MEDS: ACETAMINOPHEN 325 MG TABLET PO PRN ×2 (06:11→21:09)
[2016-10-25] MEDS: LEVOTHYROXINE SODIUM 0.15 MG TABLET PO SCH (06:12)
[2016-10-25] MEDS: SILDENAFIL CITRATE 20 MG TABLET PO SCH ×3 (09:06→18:11)
[2016-10-25] MEDS: POTASSIUM CHLORIDE 10 MEQ TABLET.SA PO SCH ×2 (09:06→18:07)
[2016-10-25] MEDS: FOLIC ACID 1 MG TABLET PO SCH (09:07)
[2016-10-25] MEDS: THIAMINE HCL 100 MG TABLET PO SCH (09:07)
[2016-10-25] MEDS: PREDNISONE 20 MG TABLET PO SCH ×2 (09:07→18:08)
[2016-10-25] MEDS: MULTIVITAMIN TABLET PO SCH (09:08)
[2016-10-25] MEDS: FUROSEMIDE 40 MG TABLET PO SCH ×2 (09:08→18:08)
[2016-10-25] MEDS: LEVOFLOXACIN 250 MG TABLET PO SCH (09:08)
[2016-10-25] MEDS: GABAPENTIN 300 MG CAPSULE PO SCH ×2 (09:12→21:10)
[2016-10-25] MEDS: NYSTATIN TOPICAL POWDER 15 GM TP SCH ×2 (09:13→18:11)
[2016-10-25] MEDS: ATENOLOL 50 MG TABLET PO SCH (09:13)
[2016-10-25] MEDS: LEVALBUTEROL HCL NEB 1.25 MG/3 ML AMPUL NEB PRN ×2 (10:04→20:21)
--- NOTE | 2016-10-25 13:06 | PDOC PROGRESS REPORT ---
Subjective Progress Note for:: 10/25/16 Subjective:: Patient is doing well Dyspnea is improved ; she is oxygenating very well on nasal cannula with an O2 sat of 95% on 4 L No chest pain no fever no chills She is eager to sit up in the chair and start ambulating Physical Exam Vital Signs: Temp Pulse Resp BP Pulse Ox 97.4 F 69 20 121/69 95 10/25/16 12:00 10/25/16 12:00 10/25/16 12:00 10/25/16 12:00 10/25/16 12:00 Pulse Oximeter Continuous Start: 10/16/16 15: 36 Freq: RTQ4 Status: Complete Document 10/17/16 17:00 HCR (Rec: 10/17/16 18:40 HCR [id number]) Pulse Oximetry Assessment Equipment Usage Equipment Discontinued Continuous SpO2 Machine # 3 Intake & Output 10/24/16 10/25/16 10/26/16 00:59 00:59 00:59 Intake Total 1984 1103 1090 Balance 1984 1103 1090 Weight 131.4 kg 130.8 kg 132.4 kg General appearance: PRESENT: no acute distress, morbidly obese Head exam: PRESENT: atraumatic, normocephalic Eye exam: PRESENT: conjunctiva pink, EOMI, PERRLA. ABSENT: scleral icterus Neck exam: ABSENT: carotid bruit, JVD, lymphadenopathy, thyromegaly Respiratory exam: PRESENT: decreased breath sounds. ABSENT: accessory muscle use Cardiovascular exam: PRESENT: RRR. ABSENT: diastolic murmur, rubs, systolic murmur GI/Abdominal exam: PRESENT: normal bowel sounds, soft. ABSENT: distended, guarding, mass, organolmegaly, rebound, tenderness Neurological exam: PRESENT: alert, awake, oriented to person, oriented to place , oriented to time, oriented to situation, CN II-XII grossly intact. ABSENT: motor sensory deficit Results Laboratory Results: 10/23/16 04:09 10/23/16 04:09 10/15/16 10/15/16 10/15/16 01:40 09:56 09:56 Creatine Kinase 46 CK-MB (CK-2) < 0.22 Troponin I 0.034 0.046 NT-Pro-B Natriuret Pep 10/15/16 10/15/16 10/16/16 20:30 20:30 05:39 Creatine Kinase 38 CK-MB (CK-2) < 0.22 Troponin I 0.065 NT-Pro-B Natriuret Pep 80140 H 10/19/16 10/20/16 10/22/16 03:49 04:00 22:03 Creatine Kinase < 20 L CK-MB (CK-2) Troponin I NT-Pro-B Natriuret Pep 89970 H 59485 H 10/22/16 10/23/16 10/23/16 22:03 04:09 04:09 Creatine Kinase < 20 L CK-MB (CK-2) 0.27 0.26 Troponin I < 0.012 < 0.012 NT-Pro-B Natriuret Pep 10/23/16 10/23/16 10:02 10:02 Creatine Kinase < 20 L CK-MB (CK-2) 0.26 Troponin I < 0.012 NT-Pro-B Natriuret Pep Impressions: Cervical Spine CT 10/17/16 00:00 IMPRESSION: Cervical disc disease. Mild malalignment. Elbow X-Ray 10/18/16 00:00 IMPRESSION: Probable bursitis. Abdomen Ultrasound 10/21/16 00:00 IMPRESSION: LIMITED STUDY DUE TO PATIENT'S BODY HABITUS. FATTY INFILTRATION OF THE LIVER. THE LEFT KIDNEY IS NOT VISUALIZED WHICH MAY BE DUE TO THE TECHNICAL LIMITATIONS VERSUS ABSENCE OR ECTOPIC POSITION OF THE KIDNEY. NO OTHER SIGNIFICANT FINDING IN THE VISUALIZED ABDOMEN. Hand X-Ray 10/21/16 00:00 IMPRESSION: Osteoarthritis as above. Venous Doppler Study 10/22/16 00:00 IMPRESSION: NO EVIDENCE DVT OR SVT IN THE RIGHT ARM. Chest X-Ray 10/22/16 06:00 IMPRESSION: NO CHANGE IN APPEARANCE OF THE CHEST. Assessment & Plan - Diagnosis (1) Acute and chronic respiratory failure with hypercapnia Is this a current diagnosis for this admission?: YesPlan: Improved (2) COPD (chronic obstructive pulmonary disease) Is this a current diagnosis for this admission?: YesPlan: Improved (3) Moderate to severe pulmonary hypertension Is this a current diagnosis for this admission?: Yes (4) Obesity hypoventilation syndrome Is this a current diagnosis for this admission?: Yes (5) Obstructive sleep apnea Is this a current diagnosis for this admission?: Yes (6) Anticoagulated on Coumadin Is this a current diagnosis for this admission?: YesPlan: Adequate anticoagulation with an INR of 2.4 (7) Atrial fibrillation Qualifiers: Atrial fibrillation type: chronic Qualified Code(s): I48.2 - Chronic atrial fibrillation Is this a current diagnosis for this admission?: YesPlan: Slow ventricular rate yesterday We decrease atenolol to 25 mg daily - Time Time Spent with patient: Continue the present treatment Patient is awaiting transfer to short-term rehabilitation when bed is available PT evaluation in a.m. Time Spent with patient: 25-34 minutes
[2016-10-25] MEDS: ATORVASTATIN CALCIUM 40 MG TABLET PO SCH (21:09)
[2016-10-25] MEDS: WARFARIN SODIUM 2.5 MG TABLET PO SCH (21:09)
[2016-10-26 05:23] LABS: HEMATOCRIT 40.3 % (36.0-47.0); HEMOGLOBIN 13.1 g/dL (12.0-15.5); MEAN CORPUSCULAR HEMOGLOBIN 30.4 pg (27.0-33.4); MEAN CORPUSCULAR HGB CONC 32.4 g/dL (32.0-36.0); MEAN CORPUSCULAR VOLUME 94 fl (80-97); RED CELL DISTRIBUTION WIDTH 17.7 % (11.5-14.0); WHITE BLOOD COUNT 10.1 10^3/uL (4.0-10.5)
[2016-10-26 05:31] LABS: PROTHROMBIN TIME 23.2 SEC (11.4-15.4)
[2016-10-26] MEDS: LEVOTHYROXINE SODIUM 0.15 MG TABLET PO SCH (05:33)
[2016-10-26 05:37] LABS: BLOOD UREA NITROGEN 107 mg/dL (7-20); CALCIUM 9.4 mg/dL (8.4-10.2); CHLORIDE 93 mmol/L (98-107); CREATININE RESULT 1.17 mg/dL (0.52-1.25); GLUCOSE 253 mg/dL (75-110); POTASSIUM 5.1 mmol/L (3.6-5.0); SODIUM 143.9 mmol/L (137-145)
[2016-10-26 05:38] LABS: ALANINE AMINOTRANSFERASE 61 U/L (9-52); ALKALINE PHOSPHATASE 163 U/L (38-126); ASPARTATE AMINO TRANSFERASE 35 U/L (14-36); BILIRUBIN,DIRECT 0.7 mg/dL (0.0-0.4); BILIRUBIN,TOTAL 1.1 mg/dL (0.2-1.3)
[2016-10-26 05:47] LABS: ANION GAP 10 (5-19)
[2016-10-26 05:48] LABS: CARBON DIOXIDE 41 mmol/L (22-30)
[2016-10-26] MEDS ORDERED: NORMAL SALINE 1000 ML 500 ML IV ONE (06:34)
[2016-10-26] MEDS: SILDENAFIL CITRATE 20 MG TABLET PO SCH ×3 (07:41→16:21)
--- NOTE | 2016-10-26 08:02 | PDOC PROGRESS REPORT ---
Subjective Progress Note for:: 10/26/16 Subjective:: The patient states to feel much better. Her right hand seemed to be doing much better. Her breathing has improved. She has not been out of bed to chair. Physical Exam Vital Signs: Temp Pulse Resp BP Pulse Ox 97.3 F 57 L 20 121/64 97 10/26/16 04:12 10/26/16 04:12 10/26/16 04:12 10/26/16 04:12 10/26/16 04:12 Pulse Oximeter Continuous Start: 10/16/16 15: 36 Freq: RTQ4 Status: Complete Document 10/17/16 17:00 HCR (Rec: 10/17/16 18:40 HCR [id number]) Pulse Oximetry Assessment Equipment Usage Equipment Discontinued Continuous SpO2 Machine # 3 Intake & Output 10/25/16 10/26/16 10/27/16 06:59 06:59 06:59 Intake Total 1783 1583 Balance 1783 1583 Weight 132.4 kg 130.8 kg General appearance: PRESENT: mild distress Head exam: PRESENT: atraumatic Eye exam: PRESENT: conjunctiva pink Neck exam: PRESENT: full ROM Respiratory exam: PRESENT: crackles, rhonchi Cardiovascular exam: PRESENT: bradycardia Pulses: PRESENT: +1 pedal pulses bilateral GI/Abdominal exam: PRESENT: normal bowel sounds, soft Extremities exam: PRESENT: tenderness Musculoskeletal exam: PRESENT: tenderness Neurological exam: PRESENT: alert, awake Results Laboratory Results: 10/26/16 05:09 10/26/16 05:09 10/26/16 10/26/16 05:09 05:09 WBC 10.1 RBC 4.30 Hgb 13.1 Hct 40.3 MCV 94 MCH 30.4 MCHC 32.4 RDW 17.7 H Plt Count 216 Sodium 143.9 Potassium 5.1 H Chloride 93 L Carbon Dioxide 41 H* Anion Gap 10 BUN 107 H Creatinine 1.17 Est GFR ( Amer) 55 L Est GFR (Non-Af Amer) 46 L Glucose 253 H Calcium 9.4 Total Bilirubin 1.1 AST 35 ALT 61 H Alkaline Phosphatase 163 H Total Protein 6.0 L Albumin 3.0 L 10/15/16 10/15/16 10/15/16 01:40 09:56 09:56 Creatine Kinase 46 CK-MB (CK-2) < 0.22 Troponin I 0.034 0.046 NT-Pro-B Natriuret Pep 10/15/16 10/15/16 10/16/16 20:30 20:30 05:39 Creatine Kinase 38 CK-MB (CK-2) < 0.22 Troponin I 0.065 NT-Pro-B Natriuret Pep 91319 H 10/19/16 10/20/16 10/22/16 03:49 04:00 22:03 Creatine Kinase < 20 L CK-MB (CK-2) Troponin I NT-Pro-B Natriuret Pep 11866 H 33261 H 10/22/16 10/23/16 10/23/16 22:03 04:09 04:09 Creatine Kinase < 20 L CK-MB (CK-2) 0.27 0.26 Troponin I < 0.012 < 0.012 NT-Pro-B Natriuret Pep 10/23/16 10/23/16 10:02 10:02 Creatine Kinase < 20 L CK-MB (CK-2) 0.26 Troponin I < 0.012 NT-Pro-B Natriuret Pep Impressions: Cervical Spine CT 10/17/16 00:00 IMPRESSION: Cervical disc disease. Mild malalignment. Elbow X-Ray 10/18/16 00:00 IMPRESSION: Probable bursitis. Abdomen Ultrasound 10/21/16 00:00 IMPRESSION: LIMITED STUDY DUE TO PATIENT'S BODY HABITUS. FATTY INFILTRATION OF THE LIVER. THE LEFT KIDNEY IS NOT VISUALIZED WHICH MAY BE DUE TO THE TECHNICAL LIMITATIONS VERSUS ABSENCE OR ECTOPIC POSITION OF THE KIDNEY. NO OTHER SIGNIFICANT FINDING IN THE VISUALIZED ABDOMEN. Hand X-Ray 10/21/16 00:00 IMPRESSION: Osteoarthritis as above. Venous Doppler Study 10/22/16 00:00 IMPRESSION: NO EVIDENCE DVT OR SVT IN THE RIGHT ARM. Chest X-Ray 10/22/16 06:00 IMPRESSION: NO CHANGE IN APPEARANCE OF THE CHEST. Assessment & Plan - Diagnosis (1) Recent upper respiratory tract infection Is this a current diagnosis for this admission?: Yes (2) Bacteremia due to Gram-negative bacteria Is this a current diagnosis for this admission?: Yes (3) CHF (congestive heart failure) Qualifiers: Congestive heart failure type: diastolic Congestive heart failure chronicity: acute on chronic Qualified Code(s): I50.33 - Acute on chronic diastolic (congestive) heart failure Is this a current diagnosis for this admission?: YesPlan: Very slow improvement because of multiorgan involvement. Acute on chronic kidney disease Atrial fibrillation Acute on chronic congestive heart failure Severe pulmonary hypertension (4) Leukocytosis Qualifiers: Leukocytosis type: unspecified Qualified Code(s): D72.829 - Elevated white blood cell count, unspecified Is this a current diagnosis for this admission?: Yes (5) Thrombocytopenia Is this a current diagnosis for this admission?: Yes (6) CKD (chronic kidney disease), stage III Is this a current diagnosis for this admission?: YesPlan: Improving with rehydration (7) Tobacco dependency Is this a current diagnosis for this admission?: Yes (8) Supratherapeutic INR Is this a current diagnosis for this admission?: Yes (9) Anticoagulated on Coumadin Is this a current diagnosis for this admission?: Yes (10) Elevated LFTs Is this a current diagnosis for this admission?: Yes (11) Sepsis due to Gram negative bacteria Plan: Presently on antibiotics (12) Atrial fibrillation Qualifiers: Atrial fibrillation type: chronic Qualified Code(s): I48.2 - Chronic atrial fibrillation Is this a current diagnosis for this admission?: YesPlan: Mild bradycardia. Atenolol has been decreased (13) Pulmonary hypertension Is this a current diagnosis for this admission?: YesPlan: Improving. Tolerating syndaifinil (14) Obesity hypoventilation syndrome Is this a current diagnosis for this admission?: YesPlan: Presently on BiPAP (15) Obstructive sleep apnea Is this a current diagnosis for this admission?: Yes (16) Right elbow pain Is this a current diagnosis for this admission?: YesPlan: Improved with steroids (17) Right forearm cellulitis Is this a current diagnosis for this admission?: Yes
[2016-10-26] MEDS ORDERED: POTASSIUM CHLORIDE 10 MEQ TABLET.SA PO ONE (09:00)
[2016-10-26] MEDS: THIAMINE HCL 100 MG TABLET PO SCH (09:28)
[2016-10-26] MEDS: PREDNISONE 20 MG TABLET PO SCH ×2 (09:28→19:53)
[2016-10-26] MEDS: LEVOFLOXACIN 250 MG TABLET PO SCH (09:28)
[2016-10-26] MEDS: GABAPENTIN 300 MG CAPSULE PO SCH ×2 (09:29→21:55)
[2016-10-26] MEDS: ATENOLOL 50 MG TABLET PO SCH (09:29)
[2016-10-26] MEDS: MULTIVITAMIN TABLET PO SCH (09:29)
[2016-10-26] MEDS: FOLIC ACID 1 MG TABLET PO SCH (09:34)
[2016-10-26] MEDS ORDERED: POTASSIUM CHLORIDE 10 MEQ TABLET.SA PO SCH (10:00)
--- NOTE | 2016-10-26 10:15 | PROGRESS NOTE E ---
Progress Note NAME: MARIANO HENRY : 1945 AGE: 71Y DATE: 10/25/2016 ROOM: 407 SUBJECTIVE: Note I saw the patient from a.m. to a.m., a total of 30 minutes spent on this patient. The patient states that she feels slightly a little more short of breath, but she has no PND or orthopnea. There is no cough or pleuritic chest pain. There is no hemoptysis. There is atrial fibrillation with a controlled ventricular response. There is stable blood pressure. There are no TIA or CVA symptoms. There is no bleeding on Coumadin. There is no leg edema. OBJECTIVE: GENERAL: On examination, the patient is morbidly obese but in no acute distress. Although she claims to be short of breath, she does not appear to be short of breath. VITAL SIGNS: She is afebrile, earlier temperature was 97.3. Pulse was 54 beats per minute. At present, pulse is about 58 beats per minute on the monitor. Blood pressure is . Respirations are 20 per minute. O2 saturations are 91% on 5 liters nasal cannula. HEAD: Atraumatic/normocephalic. EYES: Pupils are equal, round, regular, reactive to light and accommodation. Extraocular movements are normal. There is no conjunctival pallor. There is no scleral icterus. EARS: Tympanic membranes are intact. External auditory canals are clear. NOSE: There is no deviated nasal septum. There is no inflammation of the nasal mucous membranes. MOUTH: The mucous membranes of the mouth are moist. Tongue is moist. There is no ulcer. There is no bleeding from the gums. THROAT: There is no redness from the oropharynx. There is no exudate. SKIN: There are no skin rashes. There is no petechia or ecchymosis. There are no skin lesions. There are venous stasis dermatitis changes in both lower extremities. NECK: Supple. There is no JVD. Carotids are equal. There is no goiter. There is no lymphadenopathy. Trachea is central. CHEST: Lungs show diminished air entry and dullness in the left base with a few dry crackles. The rest of the lungs show diminished air entry and prolonged expiration and on auscultation. There is no rhonchi, rales, or wheezing. Elsewhere on percussion there is hyperresonance. HEART: S1, S2 is heard. S1 is of variable intensity. There is no S3 gallop. There is no S4 gallop. There is a systolic murmur in the left sternal border and the apex. There is no rub. ABDOMEN: Soft, obese, nontender. There is no hepatosplenomegaly. Bowel sounds are well heard. There are no tender areas or masses. EXTREMITIES: The right elbow/right hand pain are almost resolved, and there is no redness there. The femorals are diminished. There is no femoral bruit. Leg pulses are diminished. There is no pedal edema. There is no cyanosis or clubbing. Noticed is chronic venous stasis dermatitis changes in both lower extremities. There is no calf tenderness. CENTRAL NERVOUS SYSTEM: The patient is conscious, awake, alert, oriented x3 with no focal deficits. PSYCHIATRIC: The patient's judgement and insight were intact. Her affect was normal. DIAGNOSTIC DATA: The patient's ProTime is 27.7. INR is 2.46. IMPRESSION: 1. PASTEURELLA GRAM-NEGATIVE INFECTION. On antibiotics, improving. No evidence of septic shock. 2. PNEUMONIA IN LEFT BASE WITH SMALL EFFUSION STILL PRESENT. The plan is to continue antibiotics, continue respiratory treatments. We will check a chest x-ray in the morning. 3. MILD CONGESTIVE HEART FAILURE DUE VOLUME OVERLOAD. At present compensated. 4. ACUTE KIDNEY INJURY. At present stage 3. The plan is to avoid nephrotoxic drugs. 5. SEVERE PULMONARY HYPERTENSION. Right ventricular systolic pressure of 70 to 75 mmHg. Note that the patient's shortness of breath has improved slightly with sildenafil. 6. THERAPEUTIC INR ON COUMADIN. 7. CHRONIC ATRIAL FIBRILLATION. With controlled ventricular response but at times the heart rate goes down into the 30s without any symptoms. We will continue the patient on the current dose of atenolol. I will watch her heart rate and blood pressure closely. 8. THROMBOCYTOPENIA. Resolved. The platelets have come within normal limits. 9. RIGHT ELBOW PAIN SECONDARY TO OLECRANON BURSITIS AND RIGHT HAND PAIN DUE TO RIGHT ARTHRITIS. Almost resolved. 10. TOBACCO ABUSE. The patient has been counseled to stop smoking. She is on a nicotine patch, and this is the plan. 11. HYPOTHYROIDISM. The plan is to continue the patient on thyroid replacement drugs which is being done now. 12. COPD. The patient is on Xopenex. At present, there is no evidence of acute exacerbation of COPD. Continue Coumadin. The patient's INR is therapeutic. Continue sildenafil. Continue her other current medications. Continue p.o. Lasix. We will check a chest x-ray portable in the a.m. to see the status of the left lower lobe pneumonia/effusion. Will follow with you. DICTATING PHYSICIAN: THOMAS BLANCA M.D. [id number] PHY#: [id number] ID: [id number] JOB#: [id number] ACCT: [id number] cc:THOMAS BLANCA M.D. >
--- NOTE | 2016-10-26 10:41 | PDOC PROGRESS REPORT ---
Subjective Progress Note for:: 10/26/16 Subjective:: Feeling a little bit better Physical Exam Vital Signs: Temp Pulse Resp BP Pulse Ox 97.3 F 78 18 126/62 H 94 10/26/16 08:36 10/26/16 08:59 10/26/16 08:59 10/26/16 08:36 10/26/16 08:59 Pulse Oximeter Continuous Start: 10/16/16 15: 36 Freq: RTQ4 Status: Complete Document 10/17/16 17:00 HCR (Rec: 10/17/16 18:40 HCR [id number]) Pulse Oximetry Assessment Equipment Usage Equipment Discontinued Continuous SpO2 Machine # 3 Intake & Output 10/25/16 10/26/16 10/27/16 06:59 06:59 06:59 Intake Total 1783 2113 200 Balance 1783 2113 200 Weight 132.4 kg 130.8 kg General appearance: PRESENT: no acute distress, cooperative, disheveled, morbidly obese Head exam: PRESENT: atraumatic, normocephalic Eye exam: PRESENT: conjunctiva pale, EOMI Mouth exam: PRESENT: dry mucosa, neck supple Neck exam: ABSENT: carotid bruit, JVD, lymphadenopathy, thyromegaly Respiratory exam: PRESENT: decreased breath sounds, prolonged expiratory phas, rales, rhonchi, symmetrical, unlabored Cardiovascular exam: PRESENT: irregular rhythm Pulses: PRESENT: normal radial pulses GI/Abdominal exam: PRESENT: normal bowel sounds, soft. ABSENT: distended, guarding, mass, organolmegaly, rebound, tenderness Rectal exam: PRESENT: deferred Gentrourinary exam: PRESENT: indwelling catheter Extremities exam: PRESENT: +2 edema, other - Chronic venous stasis changes Neurological exam: PRESENT: alert, altered Psychiatric exam: PRESENT: normal mood Skin exam: PRESENT: dry Results Laboratory Results: 10/26/16 05:09 10/26/16 05:09 10/26/16 10/26/16 05:09 05:09 WBC 10.1 RBC 4.30 Hgb 13.1 Hct 40.3 MCV 94 MCH 30.4 MCHC 32.4 RDW 17.7 H Plt Count 216 Sodium 143.9 Potassium 5.1 H Chloride 93 L Carbon Dioxide 41 H* Anion Gap 10 BUN 107 H Creatinine 1.17 Est GFR ( Amer) 55 L Est GFR (Non-Af Amer) 46 L Glucose 253 H Calcium 9.4 Total Bilirubin 1.1 AST 35 ALT 61 H Alkaline Phosphatase 163 H Total Protein 6.0 L Albumin 3.0 L 10/15/16 10/15/16 10/15/16 01:40 09:56 09:56 Creatine Kinase 46 CK-MB (CK-2) < 0.22 Troponin I 0.034 0.046 NT-Pro-B Natriuret Pep 10/15/16 10/15/16 10/16/16 20:30 20:30 05:39 Creatine Kinase 38 CK-MB (CK-2) < 0.22 Troponin I 0.065 NT-Pro-B Natriuret Pep 48116 H 10/19/16 10/20/16 10/22/16 03:49 04:00 22:03 Creatine Kinase < 20 L CK-MB (CK-2) Troponin I NT-Pro-B Natriuret Pep 33059 H 97419 H 10/22/16 10/23/16 10/23/16 22:03 04:09 04:09 Creatine Kinase < 20 L CK-MB (CK-2) 0.27 0.26 Troponin I < 0.012 < 0.012 NT-Pro-B Natriuret Pep 10/23/16 10/23/16 10:02 10:02 Creatine Kinase < 20 L CK-MB (CK-2) 0.26 Troponin I < 0.012 NT-Pro-B Natriuret Pep Impressions: Cervical Spine CT 10/17/16 00:00 IMPRESSION: Cervical disc disease. Mild malalignment. Elbow X-Ray 10/18/16 00:00 IMPRESSION: Probable bursitis. Abdomen Ultrasound 10/21/16 00:00 IMPRESSION: LIMITED STUDY DUE TO PATIENT'S BODY HABITUS. FATTY INFILTRATION OF THE LIVER. THE LEFT KIDNEY IS NOT VISUALIZED WHICH MAY BE DUE TO THE TECHNICAL LIMITATIONS VERSUS ABSENCE OR ECTOPIC POSITION OF THE KIDNEY. NO OTHER SIGNIFICANT FINDING IN THE VISUALIZED ABDOMEN. Hand X-Ray 10/21/16 00:00 IMPRESSION: Osteoarthritis as above. Venous Doppler Study 10/22/16 00:00 IMPRESSION: NO EVIDENCE DVT OR SVT IN THE RIGHT ARM. Chest X-Ray 10/22/16 06:00 IMPRESSION: NO CHANGE IN APPEARANCE OF THE CHEST. Assessment & Plan - Diagnosis (1) Obstructive sleep apnea Is this a current diagnosis for this admission?: Yes (2) Obesity hypoventilation syndrome Is this a current diagnosis for this admission?: Yes (3) Heme positive stool Is this a current diagnosis for this admission?: Yes (4) Bacteremia due to Gram-negative bacteria Is this a current diagnosis for this admission?: Yes (5) CHF (congestive heart failure) Qualifiers: Congestive heart failure type: diastolic Congestive heart failure chronicity: acute on chronic Qualified Code(s): I50.33 - Acute on chronic diastolic (congestive) heart failure Is this a current diagnosis for this admission?: Yes (7) Pulmonary hypertension Is this a current diagnosis for this admission?: Yes (8) Atrial fibrillation Qualifiers: Atrial fibrillation type: chronic Qualified Code(s): I48.2 - Chronic atrial fibrillation Is this a current diagnosis for this admission?: Yes (9) Thrombocytopenia Is this a current diagnosis for this admission?: Yes (10) Tobacco dependency Is this a current diagnosis for this admission?: Yes
[2016-10-26] MEDS: ACETAMINOPHEN 325 MG TABLET PO PRN ×2 (12:22→22:32)
[2016-10-26] MEDS: NYSTATIN TOPICAL POWDER 15 GM TP SCH ×2 (15:11→19:57)
[2016-10-26] MEDS: WARFARIN SODIUM 2.5 MG TABLET PO SCH (21:55)
[2016-10-26] MEDS: ATORVASTATIN CALCIUM 40 MG TABLET PO SCH (21:55)
--- NOTE | 2016-10-26 22:18 | PROGRESS NOTE E ---
Progress Note NAME: MARIANO HENRY : 1945 AGE: 71Y DATE: 10/26/2016 ROOM: 407 SUBJECTIVE: The patient was seen between 1:15 and 1:40 p.m. Note that the patient denies any chest pain or discomfort. There is no PND or orthopnea. There is no leg edema. The patient states her shortness of breath is much improved. The patient continues to be in atrial fibrillation with a controlled ventricular response. There are no TIA or CVA symptoms. There is no bleeding on Coumadin. OBJECTIVE: GENERAL: On examination the patient is morbidly obese, in no acute distress. She is able to lie down flat. VITAL SIGNS: She is afebrile with a temperature of 98 degrees Fahrenheit. Pulse is 90 beats per minute. Blood pressure is 143/82. Her respirations are 20 per minute. O2 saturations are 95% on 3.5 liters nasal O2. HEAD: Atraumatic/normocephalic. EYES: Pupils are equal, round, regular, reactive to light and accommodation. Extraocular movements are normal. There is no conjunctival pallor. There is no scleral icterus. EARS: Tympanic membranes are intact. External auditory canals are clear. NOSE: There is no deviated nasal septum. There is no inflammation of the nasal mucous membranes. MOUTH: Mucous membranes of the mouth are moist. Tongue is moist. There is no ulcer. There is no bleeding from the gums. THROAT: There is no redness of the oropharynx. There is no exudate. SKIN: There are no skin rashes. There is no petechia or ecchymosis. There are no skin lesions. There are venous stasis dermatitis changes in both lower extremities. NECK: Supple. There is no JVD. Carotids are equal. There is no bruit. There is no goiter. There is no lymphadenopathy. Trachea is central. LUNGS: Show diminished air entry and dullness of the left base with a few crackles, but this is much improved compared to yesterday. The rest of the lungs show diminished air entry, prolonged respiration, and hyperresonance on percussion. HEART: S1, S2 is heard. There is no S3 gallop. There is no S4 gallop. There is a systolic murmur in the left sternal border and the apex. There is no rub. ABDOMEN: Soft, nontender. There is no hepatosplenomegaly. Bowel sounds are well heard. There are no tender areas or masses. EXTREMITIES: The right elbow and right hand pain have resolved. There is no swelling or redness. The femorals are diminished. There is no femoral bruit. Leg pulses are diminished. There is no pedal edema. There is no cyanosis or clubbing noted. There is chronic venous stasis changes dermatitis in both lower extremities. There is no calf tenderness. CENTRAL NERVOUS SYSTEM: The patient is conscious, awake, alert, oriented x3 with no focal deficit. PSYCHIATRIC: The patient's judgement and insight are intact. Her affect is normal. DIAGNOSTIC DATA: Note that the chest x-ray, on my interpretation, there is improvement in the left lower lobe infiltrate and effusion. The patient's white count is 10,100, hemoglobin is 13.1, hematocrit is 40.3, platelet count is 216,000. The patient's sodium is 143.9, potassium is slightly high at 5.1, chloride is 93, CO2 is 41, the patient's BUN is 107, creatinine is 1.17, GFR is reduced at 46 mL which is chronic kidney disease stage 3, but this is improved from prior GFR of 40. The patient's liver function tests show a slightly elevated ALT of 61, and the alkaline phosphatase is 163. The patient's total protein is 6, albumin is 3.0. The patient's ProTime is 23.2, INR is 1.97. IMPRESSION: 1. PASTEURELLA GRAM-NEGATIVE INFECTION. On antibiotics, improving. No evidence of septic shock. 2. PNEUMONIA, LEFT BASE WITH SMALL EFFUSION. Getting better. 3. MILD CONGESTIVE HEART FAILURE DUE TO VOLUME OVERLOAD. At present compensated. 4. ACUTE KIDNEY INJURY. At present stage 3. The plan is to stop nephrotoxic drugs. 5. SEVERE PULMONARY HYPERTENSION. Right ventricular systolic pressure of 70 *------* images. The patient is doing well on sildenafil. 6. THERAPEUTIC INR. On Coumadin at present. Today INR is slightly on the lower side at 1.97. 7. CHRONIC ATRIAL FIBRILLATION. Well controlled ventricular response. 8. THROMBOCYTOPENIA. Resolved. Platelets currently in normal limits. 9. RIGHT ELBOW PAIN SECONDARY TO OLECRANON BURSITIS AND RIGHT HAND PAIN WITH ARTHRITIS. This is resolved. 10. TOBACCO ABUSE. 11. HYPOTHYROIDISM. On replacement. 12. COPD. The patient is on Xopenex. At present, there is no evidence of acute exacerbation of COPD. RECOMMENDATIONS: Continue Coumadin. Continue sildenafil. Continue the p.o. Lasix. Continue her other antibiotics. The patient's cardiac status is stable. Will sign off the case as discussed with Dr. Álvarez. I will follow the patient in the office since the patient desires followup with me. Note, 30 minutes spent on the patient with more than 50% of the time spent on direct patient care, and medications were reviewed also. And also plan of care discussed with the attending physician and the nurse taking care of the patient. DICTATING PHYSICIAN: THOMAS BLANCA M.D. [id number] [id number] Y#: [id number] ID: [id number] JOB#: [id number] ACCT: [id number] cc:THOMAS BLANCA M.D. >
[2016-10-27 05:20] LABS: PROTHROMBIN TIME 24.5 SEC (11.4-15.4)
[2016-10-27 05:40] LABS: ALANINE AMINOTRANSFERASE 78 U/L (9-52); ALKALINE PHOSPHATASE 154 U/L (38-126); ANION GAP 10 (5-19); ASPARTATE AMINO TRANSFERASE 56 U/L (14-36); BILIRUBIN,DIRECT 0.5 mg/dL (0.0-0.4); BLOOD UREA NITROGEN 98 mg/dL (7-20); CALCIUM 9.2 mg/dL (8.4-10.2); CARBON DIOXIDE 39 mmol/L (22-30); CHLORIDE 95 mmol/L (98-107); CREATININE RESULT 0.93 mg/dL (0.52-1.25); GLUCOSE 215 mg/dL (75-110); POTASSIUM 5.3 mmol/L (3.6-5.0); SODIUM 143.5 mmol/L (137-145); TOTAL PROTEIN 5.8 g/dL (6.3-8.2)
[2016-10-27] MEDS: LEVOTHYROXINE SODIUM 0.15 MG TABLET PO SCH (05:56)
[2016-10-27 06:24] LABS: HEMATOCRIT 41.9 % (36.0-47.0); HEMOGLOBIN 13.4 g/dL (12.0-15.5); HGB HCT DIFFERENCE -1.7; MEAN CORPUSCULAR VOLUME 94 fl (80-97); RED BLOOD COUNT 4.48 10^6/uL (3.72-5.28); RED CELL DISTRIBUTION WIDTH 18.3 % (11.5-14.0); WHITE BLOOD COUNT 11.2 10^3/uL (4.0-10.5)
[2016-10-27 06:30] LABS: BAND NEUTROPHILS % (MANUAL) 1 % (3-5); BASOPHILS % (MANUAL) 0 % (0-2); EOSINOPHILS % (MANUAL) 0 % (0-6); LYMPHOCYTES % (MANUAL) 3 % (13-45); TOTAL CELLS COUNTED 100
[2016-10-27 06:32] LABS: ANISOCYTOSIS 1+; HYPOCHROMASIA SLIGHT; POIKILOCYTOSIS 1+; STOMATOCYTES 1+
--- NOTE | 2016-10-27 08:46 | PDOC PROGRESS REPORT ---
Subjective Progress Note for:: 10/27/16 Subjective:: The patient states to feel better. Her breathing has improved. Her right hand pain is improving. Physical Exam Vital Signs: Temp Pulse Resp BP Pulse Ox 97.7 F 50 L 15 133/65 H 93 10/26/16 20:14 10/27/16 07:00 10/27/16 00:55 10/26/16 20:14 10/27/16 06:29 Pulse Oximeter Continuous Start: 10/16/16 15: 36 Freq: RTQ4 Status: Complete Document 10/17/16 17:00 HCR (Rec: 10/17/16 18:40 HCR [id number]) Pulse Oximetry Assessment Equipment Usage Equipment Discontinued Continuous SpO2 Machine # 3 Intake & Output 10/26/16 10/27/16 10/28/16 06:59 06:59 06:59 Intake Total 2113 810 Balance 2113 810 Weight 130.8 kg 130.8 kg General appearance: PRESENT: no acute distress Head exam: PRESENT: atraumatic Eye exam: PRESENT: conjunctiva pink Neck exam: ABSENT: carotid bruit Respiratory exam: PRESENT: crackles, rhonchi Cardiovascular exam: PRESENT: irregular rhythm Pulses: PRESENT: +1 pedal pulses bilateral GI/Abdominal exam: PRESENT: normal bowel sounds Extremities exam: PRESENT: tenderness Musculoskeletal exam: PRESENT: tenderness Neurological exam: PRESENT: alert, awake Results Laboratory Results: 10/27/16 04:19 10/27/16 04:19 10/27/16 10/27/16 10/27/16 04:19 04:19 04:19 WBC 11.2 H RBC 4.48 Hgb 13.4 Hct 41.9 MCV 94 MCH 30.0 MCHC 32.0 RDW 18.3 H Plt Count 196 Seg Neutrophils % Not Reportable Lymphocytes % Not Reportable Monocytes % Not Reportable Eosinophils % Not Reportable Basophils % Not Reportable Absolute Neutrophils Not Reportable Absolute Lymphocytes Not Reportable Absolute Monocytes Not Reportable Absolute Eosinophils Not Reportable Absolute Basophils Not Reportable Sodium 143.5 Potassium 5.3 H Chloride 95 L Carbon Dioxide 39 H Anion Gap 10 BUN 98 H Creatinine 0.93 Est GFR ( Amer) > 60 Est GFR (Non-Af Amer) 59 L Glucose 215 H Calcium 9.2 Total Bilirubin 1.0 AST 56 H ALT 78 H Alkaline Phosphatase 154 H Total Protein 5.8 L Albumin 3.0 L TSH 1.02 10/15/16 10/15/16 10/15/16 01:40 09:56 09:56 Creatine Kinase 46 CK-MB (CK-2) < 0.22 Troponin I 0.034 0.046 NT-Pro-B Natriuret Pep 10/15/16 10/15/16 10/16/16 20:30 20:30 05:39 Creatine Kinase 38 CK-MB (CK-2) < 0.22 Troponin I 0.065 NT-Pro-B Natriuret Pep 42396 H 10/19/16 10/20/16 10/22/16 03:49 04:00 22:03 Creatine Kinase < 20 L CK-MB (CK-2) Troponin I NT-Pro-B Natriuret Pep 68973 H 54559 H 10/22/16 10/23/16 10/23/16 22:03 04:09 04:09 Creatine Kinase < 20 L CK-MB (CK-2) 0.27 0.26 Troponin I < 0.012 < 0.012 NT-Pro-B Natriuret Pep 10/23/16 10/23/16 10:02 10:02 Creatine Kinase < 20 L CK-MB (CK-2) 0.26 Troponin I < 0.012 NT-Pro-B Natriuret Pep Impressions: Cervical Spine CT 10/17/16 00:00 IMPRESSION: Cervical disc disease. Mild malalignment. Elbow X-Ray 10/18/16 00:00 IMPRESSION: Probable bursitis. Abdomen Ultrasound 10/21/16 00:00 IMPRESSION: LIMITED STUDY DUE TO PATIENT'S BODY HABITUS. FATTY INFILTRATION OF THE LIVER. THE LEFT KIDNEY IS NOT VISUALIZED WHICH MAY BE DUE TO THE TECHNICAL LIMITATIONS VERSUS ABSENCE OR ECTOPIC POSITION OF THE KIDNEY. NO OTHER SIGNIFICANT FINDING IN THE VISUALIZED ABDOMEN. Hand X-Ray 10/21/16 00:00 IMPRESSION: Osteoarthritis as above. Venous Doppler Study 10/22/16 00:00 IMPRESSION: NO EVIDENCE DVT OR SVT IN THE RIGHT ARM. Chest X-Ray 10/26/16 00:00 IMPRESSION: No change. Left lower lobe pneumonia remains. Assessment & Plan - Diagnosis (1) Recent upper respiratory tract infection Is this a current diagnosis for this admission?: Yes (2) Bacteremia due to Gram-negative bacteria Is this a current diagnosis for this admission?: YesPlan: Presently on antibiotics (3) CHF (congestive heart failure) Qualifiers: Congestive heart failure type: diastolic Congestive heart failure chronicity: acute on chronic Qualified Code(s): I50.33 - Acute on chronic diastolic (congestive) heart failure Is this a current diagnosis for this admission?: YesPlan: We'll restart the Lasix twice a day (4) Leukocytosis Qualifiers: Leukocytosis type: unspecified Qualified Code(s): D72.829 - Elevated white blood cell count, unspecified Is this a current diagnosis for this admission?: Yes (5) Thrombocytopenia Is this a current diagnosis for this admission?: Yes (6) CKD (chronic kidney disease), stage III Is this a current diagnosis for this admission?: YesPlan: Improved with rehydration (7) Tobacco dependency Is this a current diagnosis for this admission?: Yes (8) Supratherapeutic INR Is this a current diagnosis for this admission?: Yes (9) Anticoagulated on Coumadin Is this a current diagnosis for this admission?: Yes (10) Elevated LFTs Is this a current diagnosis for this admission?: Yes (12) Atrial fibrillation Qualifiers: Atrial fibrillation type: chronic Qualified Code(s): I48.2 - Chronic atrial fibrillation Is this a current diagnosis for this admission?: YesPlan: Mild bradycardia. Atenolol has been decreased (13) Pulmonary hypertension Is this a current diagnosis for this admission?: YesPlan: Controlled with medication (14) Obesity hypoventilation syndrome Is this a current diagnosis for this admission?: YesPlan: Presently on BiPAP (15) Obstructive sleep apnea Is this a current diagnosis for this admission?: YesPlan: Continue with BiPAP (16) Right elbow pain Is this a current diagnosis for this admission?: Yes (17) Right forearm cellulitis Is this a current diagnosis for this admission?: Yes
[2016-10-27] MEDS: LEVOFLOXACIN 500 MG TABLET PO SCH (09:46)
[2016-10-27] MEDS: MULTIVITAMIN TABLET PO SCH (09:46)
[2016-10-27] MEDS: THIAMINE HCL 100 MG TABLET PO SCH (09:46)
[2016-10-27] MEDS: SILDENAFIL CITRATE 20 MG TABLET PO SCH ×3 (09:46→17:59)
[2016-10-27] MEDS: PREDNISONE 20 MG TABLET PO SCH (09:46)
[2016-10-27] MEDS: GABAPENTIN 300 MG CAPSULE PO SCH ×2 (09:46→21:29)
[2016-10-27] MEDS: FOLIC ACID 1 MG TABLET PO SCH (09:46)
[2016-10-27] MEDS: FUROSEMIDE 40 MG TABLET PO SCH ×2 (09:46→17:58)
[2016-10-27] MEDS: ATENOLOL 50 MG TABLET PO SCH (09:47)
[2016-10-27] MEDS: NYSTATIN TOPICAL POWDER 15 GM TP SCH ×2 (09:47→17:59)
[2016-10-27] MEDS ORDERED: LEVOFLOXACIN 250 MG TABLET PO SCH (10:00)
--- NOTE | 2016-10-27 19:13 | PDOC PROGRESS REPORT ---
Physical Exam Vital Signs: Temp Pulse Resp BP Pulse Ox 97.7 F 59 L 20 135/77 H 95 10/27/16 11:00 10/27/16 11:00 10/27/16 11:00 10/27/16 11:00 10/27/16 11:00 Pulse Oximeter Continuous Start: 10/16/16 15: 36 Freq: RTQ4 Status: Complete Document 10/17/16 17:00 HCR (Rec: 10/17/16 18:40 HCR [id number]) Pulse Oximetry Assessment Equipment Usage Equipment Discontinued Continuous SpO2 Machine # 3 Intake & Output 10/26/16 10/27/16 10/28/16 06:59 06:59 06:59 Intake Total 2113 810 420 Balance 2113 810 420 Weight 130.8 kg 130.8 kg Results Laboratory Results: 10/27/16 04:19 10/27/16 04:19 10/27/16 10/27/16 10/27/16 04:19 04:19 04:19 WBC 11.2 H RBC 4.48 Hgb 13.4 Hct 41.9 MCV 94 MCH 30.0 MCHC 32.0 RDW 18.3 H Plt Count 196 Seg Neutrophils % Not Reportable Lymphocytes % Not Reportable Monocytes % Not Reportable Eosinophils % Not Reportable Basophils % Not Reportable Absolute Neutrophils Not Reportable Absolute Lymphocytes Not Reportable Absolute Monocytes Not Reportable Absolute Eosinophils Not Reportable Absolute Basophils Not Reportable Sodium 143.5 Potassium 5.3 H Chloride 95 L Carbon Dioxide 39 H Anion Gap 10 BUN 98 H Creatinine 0.93 Est GFR ( Amer) > 60 Est GFR (Non-Af Amer) 59 L Glucose 215 H Calcium 9.2 Total Bilirubin 1.0 AST 56 H ALT 78 H Alkaline Phosphatase 154 H Total Protein 5.8 L Albumin 3.0 L TSH 1.02 10/15/16 10/15/16 10/15/16 01:40 09:56 09:56 Creatine Kinase 46 CK-MB (CK-2) < 0.22 Troponin I 0.034 0.046 NT-Pro-B Natriuret Pep 10/15/16 10/15/16 10/16/16 20:30 20:30 05:39 Creatine Kinase 38 CK-MB (CK-2) < 0.22 Troponin I 0.065 NT-Pro-B Natriuret Pep 08054 H 10/19/16 10/20/16 10/22/16 03:49 04:00 22:03 Creatine Kinase < 20 L CK-MB (CK-2) Troponin I NT-Pro-B Natriuret Pep 96552 H 36103 H 10/22/16 10/23/16 10/23/16 22:03 04:09 04:09 Creatine Kinase < 20 L CK-MB (CK-2) 0.27 0.26 Troponin I < 0.012 < 0.012 NT-Pro-B Natriuret Pep 10/23/16 10/23/16 10:02 10:02 Creatine Kinase < 20 L CK-MB (CK-2) 0.26 Troponin I < 0.012 NT-Pro-B Natriuret Pep Impressions: Cervical Spine CT 10/17/16 00:00 IMPRESSION: Cervical disc disease. Mild malalignment. Elbow X-Ray 10/18/16 00:00 IMPRESSION: Probable bursitis. Abdomen Ultrasound 10/21/16 00:00 IMPRESSION: LIMITED STUDY DUE TO PATIENT'S BODY HABITUS. FATTY INFILTRATION OF THE LIVER. THE LEFT KIDNEY IS NOT VISUALIZED WHICH MAY BE DUE TO THE TECHNICAL LIMITATIONS VERSUS ABSENCE OR ECTOPIC POSITION OF THE KIDNEY. NO OTHER SIGNIFICANT FINDING IN THE VISUALIZED ABDOMEN. Hand X-Ray 10/21/16 00:00 IMPRESSION: Osteoarthritis as above. Venous Doppler Study 10/22/16 00:00 IMPRESSION: NO EVIDENCE DVT OR SVT IN THE RIGHT ARM. Chest X-Ray 10/26/16 00:00 IMPRESSION: No change. Left lower lobe pneumonia remains. Assessment & Plan - Diagnosis (1) Obstructive sleep apnea Is this a current diagnosis for this admission?: Yes (2) Obesity hypoventilation syndrome Is this a current diagnosis for this admission?: Yes (3) Heme positive stool Is this a current diagnosis for this admission?: Yes (4) Bacteremia due to Gram-negative bacteria Is this a current diagnosis for this admission?: Yes (5) CHF (congestive heart failure) Qualifiers: Congestive heart failure type: diastolic Congestive heart failure chronicity: acute on chronic Qualified Code(s): I50.33 - Acute on chronic diastolic (congestive) heart failure Is this a current diagnosis for this admission?: Yes (7) Pulmonary hypertension Is this a current diagnosis for this admission?: Yes (8) Atrial fibrillation Qualifiers: Atrial fibrillation type: chronic Qualified Code(s): I48.2 - Chronic atrial fibrillation Is this a current diagnosis for this admission?: Yes (9) Thrombocytopenia Is this a current diagnosis for this admission?: Yes (10) Tobacco dependency Is this a current diagnosis for this admission?: Yes
[2016-10-27] MEDS: WARFARIN SODIUM 2.5 MG TABLET PO SCH (21:29)
[2016-10-27] MEDS: ATORVASTATIN CALCIUM 40 MG TABLET PO SCH (21:29)
[2016-10-27] MEDS: ACETAMINOPHEN 325 MG TABLET PO PRN (22:13)
[2016-10-28] MEDS: LEVOTHYROXINE SODIUM 0.15 MG TABLET PO SCH (05:40)
[2016-10-28 06:02] LABS: HEMATOCRIT 43.1 % (36.0-47.0); HEMOGLOBIN 13.8 g/dL (12.0-15.5); HGB HCT DIFFERENCE -1.7; MEAN CORPUSCULAR VOLUME 94 fl (80-97); RED BLOOD COUNT 4.59 10^6/uL (3.72-5.28); RED CELL DISTRIBUTION WIDTH 17.9 % (11.5-14.0); WHITE BLOOD COUNT 10.3 10^3/uL (4.0-10.5)
[2016-10-28 06:10] LABS: PROTHROMBIN TIME 23.6 SEC (11.4-15.4)
[2016-10-28 06:27] LABS: ALANINE AMINOTRANSFERASE 66 U/L (9-52); ALKALINE PHOSPHATASE 135 U/L (38-126); ASPARTATE AMINO TRANSFERASE 37 U/L (14-36); BILIRUBIN,DIRECT 0.6 mg/dL (0.0-0.4); BILIRUBIN,TOTAL 1.2 mg/dL (0.2-1.3); BLOOD UREA NITROGEN 90 mg/dL (7-20); CALCIUM 9.3 mg/dL (8.4-10.2); CHLORIDE 96 mmol/L (98-107); CREATININE RESULT 1.03 mg/dL (0.52-1.25); GLUCOSE 119 mg/dL (75-110); POTASSIUM 4.6 mmol/L (3.6-5.0); SODIUM 144.4 mmol/L (137-145); TOTAL PROTEIN 5.8 g/dL (6.3-8.2)
[2016-10-28 06:37] LABS: ANION GAP 5 (5-19)
[2016-10-28 06:38] LABS: CARBON DIOXIDE 43 mmol/L (22-30)
[2016-10-28] MEDS: ACETAMINOPHEN 325 MG TABLET PO PRN (07:13)
[2016-10-28] MEDS: SILDENAFIL CITRATE 20 MG TABLET PO SCH ×2 (07:14→13:40)
--- NOTE | 2016-10-28 08:26 | PDOC TRANSFER SUMMARY ---
General - Admit/Disc Date/PCP Admission Date/Primary Care Provider: 10/14/16 22:13 NATALIA COX, Discharge Date: 10/28/16 - Discharge Diagnosis (1) Recent upper respiratory tract infection Is this a current diagnosis for this admission?: YesSummary: Resolved with antibiotics (2) Bacteremia due to Gram-negative bacteria Is this a current diagnosis for this admission?: YesSummary: Continue Levaquin for one more week (3) CHF (congestive heart failure) Is this a current diagnosis for this admission?: YesSummary: Continue current treatment with diuretics (4) Leukocytosis Is this a current diagnosis for this admission?: Yes (5) Thrombocytopenia Is this a current diagnosis for this admission?: Yes (6) CKD (chronic kidney disease), stage III Is this a current diagnosis for this admission?: YesSummary: Continue diuretics and potassium recheck labs in 1 week (7) Tobacco dependency Is this a current diagnosis for this admission?: YesSummary: Continue nicotine patch (8) Supratherapeutic INR Is this a current diagnosis for this admission?: Yes (9) Anticoagulated on Coumadin Is this a current diagnosis for this admission?: Yes (10) Elevated LFTs Is this a current diagnosis for this admission?: Yes (12) Atrial fibrillation Is this a current diagnosis for this admission?: YesSummary: Continue current treatment with atenolol and warfarin (13) Pulmonary hypertension Is this a current diagnosis for this admission?: YesSummary: Continue present medications such as sildenafil (14) Obesity hypoventilation syndrome Is this a current diagnosis for this admission?: YesSummary: We'll need to continue with BiPAP (15) Obstructive sleep apnea Is this a current diagnosis for this admission?: YesSummary: We will need to continue with the BiPAP as recommended by the pulmonology (16) Right elbow pain Is this a current diagnosis for this admission?: Yes (17) Right forearm cellulitis Is this a current diagnosis for this admission?: Yes (18) Physical deconditioning Is this a current diagnosis for this admission?: YesSummary: We will need rehabilitation short-term - Additional Information Resuscitation Status: Full Code Discharge Diet: As Tolerated Discharge Activity: Activity As Tolerated, Balance Activity w/Rest, Weigh Daily Home Medications: Aspirin [Aspirin EC] 81 mg PO DAILY 10/15/16 Acetaminophen [Tylenol 325 mg Tablet] 650 mg PO Q8HP PRN #0 tablet 10/28/16 Atenolol [Tenormin 50 mg Tablet] 25 mg PO DAILY #0 tablet 10/28/16 Atorvastatin Calcium [Lipitor 40 mg Tablet] 40 mg PO QHS #0 tablet 10/28/16 Folic Acid [Folvite 1 mg Tablet] 1 mg PO DAILY #0 tablet 10/28/16 Furosemide [Lasix] 40 mg PO DAILY #0 10/28/16 Gabapentin [Neurontin 300 mg Capsule] 300 mg PO Q12 #0 capsule 10/28/16 Levalbuterol HCl [Xopenex Neb 1.25 mg/3 ml Ampul] 1.25 mg NEB RTQ6HP PRN #0 vial.neb 10/28/16 Levofloxacin [Levaquin 500 mg Tablet] 500 mg PO DAILY #7 tablet 10/28/16 Levothyroxine Sodium [Synthroid 0.15 mg Tablet] 0.15 mg PO Q6AM #0 tablet Mag Hydrox/Al Hydrox/Simeth [Maalox Plus Susp 30 Udcup] 30 ml PO Q6HP PRN #0 udc 10/28/16 Multivitamin [Tab-A-Isabella (Multiple Vitamin) Tablet] 1 tab PO DAILY #0 tablet Nicotine [Nicoderm 21 mg/24 Hr Transderm Patch] 1 each TD DAILYP PRN #0 patch.td24 10/28/16 Nystatin [Mycostatin Topical Powder 15 gm] 1 applic TP BID #0 bottle 10/28/16 Potassium Chloride [Klor-Con 10 Meq Tablet.sa] 10 meq PO DAILY #0 tablet.sa Prednisone [Deltasone 20 mg Tablet] 10 mg PO DAILY #0 tablet 10/28/16 Sildenafil Citrate [Revatio 20 mg Tablet] 20 mg PO MEALS #0 tablet 10/28/16 Thiamine HCl [Thiamine 100 mg Tablet] 100 mg PO DAILY #0 tablet 10/28/16 Warfarin Sodium [Coumadin 2.5 mg Tablet] 2.5 mg PO QHS #0 tablet 10/28/16 History of Present Illness Admission Date/PCP: 10/14/16 22:13 NATALIA COX, History of Present Illness: MARIANO HENRY is a 71 year old morbidly obese female, with reported noncompliance according to primary care provider's office notes, copy of which are reviewed, along with underlying congestive heart failure, uncertain if systolic and/or diastolic, nonhome O2 dependent COPD, obstructive sleep apnea, with CPAP not having been ordered as of yet, according to patient, atrial fibrillation, along with history of DVT, on chronic Coumadin, hypothyroidism, hyperlipidemia, chronic venous stasis disease of bilateral lower extremities, and arthritis who presents to the emergency room for evaluation of possible 24- hour history of progressive shortness of breath, in particular with much of any exertion. There has been no chest or abdominal pain, diarrhea or dysuria. She's had shaking chills intermittently over the last 2 days, with fever to 101.5, along with increased sputum production, yellow in color. No antibiotic use or hospitalization over the last 3 months. Over the last week, she doubled her Lasix dose to 40 mg twice a day due to weight gain and retaining fluid. Resumed her usual 40 mg daily dose 2 days ago. Patient has been discussed with emergency room physician who evaluated the patient. . Laboratory results are listed in [facility] and are reviewed. X-ray summary results are listed below, with full report(s) reviewed. . EKG reviewed. And compared to a tracing from July 27 of this year. Social history/personal habits: Single. No children. 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 One and a half packs of cigarettes per day. Fifth of scotch per week. No illicit drug use. Allergies/adverse reactions are listed in [facility] and are reviewed. Home medications Home medications initially autopopulated into [facility] may not accurately reflect patient's true medications, dosages, and/or frequencies. Unfortunately, patient uncertain of all her medications/dosages/frequencies. REVIEW OF SYSTEMS: Constitutional: See history and present illness. Eyes: Wears glasses. ENT: No swallowing problems or complaints. Partial hearing loss. Pulmonary: See history and present illness. Cardiovascular: No current complaints, including chest pain. Gastrointestinal: No current complaints, including nausea or vomiting. Skin: Chronic venous stasis changes, bilateral lower extremities. Hematologic: Easy bruising. Neurologic: Chronic numbness and tingling of her lower extremities. Musculoskeletal: Joint pain from arthritis. Psychiatric: No current complaints, including anxiety or depression. Endocrine: No current complaints, including polyuria. Genitourinary: No current complaints, including dysuria. PHYSICAL EXAMINATION: 5 feet 5 inches tall. 133.4 kg. BMI 48.9 kg/m. Blood pressure 135/75. Pulse 52 and regular. 94% saturation on 2 L oxygen per nasal cannula. Temp 100.2 earlier; skin feels normothermic at present. Morbidly obese otherwise well-developed female appearing approximately her stated age. Pleasant awake alert and cooperative. No obvious distress other than perhaps mildly anxious. A rather stoic individual. Skin is warm and dry. No grossly obvious evidence of rash in areas of skin examined. No subcutaneous nodules palpated. Chronic venous stasis changes extending from just below the knee through the dorsum of her feet bilaterally. No evidence of cellulitis. She does have a small slightly raised nodule on the upper anteromedial aspect of her left calf, approximately 3 x 6 mm, mobile, non- tender, without expressible discharge. States it has been there for "quite some time." ENT: Hearing grossly normal to normal conversation. Tongue midline on protrusion pink and slightly moist. Eyes: No scleral icterus. Pupils equal and reactive to light at 4 mm. Hyndman conjunctivae. Neck is supple and nontender to gentle active range of motion and palpation. Midline trachea. No palpable thyroid nodule mass enlargement or tenderness. Lymphatic: No palpable cervical or clavicular nodes. Neck and lymphatic exams limited by patient body habitus. Psychiatric: Reasonable insight into acute and chronic medical issues. Oriented to time location and why here. Lungs: Auscultation reveals clear and equal breath sounds bilaterally. No use of accessory respiratory muscles. Cardiovascular: Heart regular rate and rhythm, without gallop murmur or rub. No carotid or abdominal aortic bruits. Slight bilateral symmetric nonpitting calf ankle and pedal edema. Faintly palpable dorsalis pedis pulses. Abdomen:soft, rather obese, nontender with positive bowel sounds. Unable to adequately evaluate abdomen for masses or organomegaly due to Body habitus Extremities: Feet are warm and dry. No calf tenderness to compression. See comments under "skin" above Neurologic: Moves upper extremities grossly normally. Patellar reflexes absent. Absent Babinski. Light touch is decreased at feet, a chronic finding according to patient.. Dorsiflexion and plantarflexion of feet 5 / 5 and symmetric. Hospital Course Hospital Course: The patient was admitted and treated aggressively for bacteremia. She was fluid overloaded and after an echocardiogram showed high right sided pressures she was diagnosed with pulmonary hypertension. She was started on medication by cardiology and pulmonary. Because of her sleep apnea apnea and obesity the patient was placed on the BiPAP. The patient remained practically bedridden. She does not have the strength no safety to be able to get out of bed on her own. She was seen by physical therapy with recommendation of continuation of physical therapy at the rehabilitation center. Physical Exam Vital Signs: Temp Pulse Resp BP Pulse Ox 97.7 F 59 L 16 132/70 H 95 10/27/16 11:00 10/28/16 02:00 10/28/16 00:16 10/27/16 20:15 10/28/16 00:16 Pulse Oximeter Continuous Start: 10/16/16 15: 36 Freq: RTQ4 Status: Complete Document 10/17/16 17:00 HCR (Rec: 10/17/16 18:40 HCR [email or web address]) Pulse Oximetry Assessment Equipment Usage Equipment Discontinued Continuous SpO2 Machine # 3 Intake & Output 10/27/16 10/28/16 10/29/16 06:59 06:59 06:59 Intake Total 810 970 Balance 810 970 Weight 130.8 kg 130.2 kg General appearance: PRESENT: mild distress Head exam: PRESENT: atraumatic Eye exam: PRESENT: conjunctiva pink Respiratory exam: PRESENT: crackles Cardiovascular exam: PRESENT: irregular rhythm Pulses: PRESENT: +1 pedal pulses bilateral Vascular exam: PRESENT: normal capillary refill GI/Abdominal exam: PRESENT: normal bowel sounds, soft Musculoskeletal exam: PRESENT: other Neurological exam: PRESENT: alert, awake Results Laboratory Results: 10/28/16 05:34 10/28/16 05:34 10/28/16 10/28/16 05:34 05:34 WBC 10.3 RBC 4.59 Hgb 13.8 Hct 43.1 MCV 94 MCH 30.0 MCHC 32.0 RDW 17.9 H Plt Count 185 Sodium 144.4 Potassium 4.6 Chloride 96 L Carbon Dioxide 43 H* Anion Gap 5 BUN 90 H Creatinine 1.03 Est GFR ( Amer) > 60 Est GFR (Non-Af Amer) 53 L Glucose 119 H Calcium 9.3 Total Bilirubin 1.2 AST 37 H ALT 66 H Alkaline Phosphatase 135 H Total Protein 5.8 L Albumin 3.0 L 04/12/2610/15/16 10/15/16 01:40 09:56 09:56 Creatine Kinase 46 CK-MB (CK-2) < 0.22 Troponin I 0.034 0.046 NT-Pro-B Natriuret Pep 10/15/16 10/15/16 10/16/16 20:30 20:30 05:39 Creatine Kinase 38 CK-MB (CK-2) < 0.22 Troponin I 0.065 NT-Pro-B Natriuret Pep 74993 H 10/19/16 10/20/16 10/22/16 03:49 04:00 22:03 Creatine Kinase < 20 L CK-MB (CK-2) Troponin I NT-Pro-B Natriuret Pep 12677 H 18024 H 10/22/16 10/23/16 10/23/16 22:03 04:09 04:09 Creatine Kinase < 20 L CK-MB (CK-2) 0.27 0.26 Troponin I < 0.012 < 0.012 NT-Pro-B Natriuret Pep 10/23/16 10/23/16 10:02 10:02 Creatine Kinase < 20 L CK-MB (CK-2) 0.26 Troponin I < 0.012 NT-Pro-B Natriuret Pep Impressions: Cervical Spine CT 10/17/16 00:00 IMPRESSION: Cervical disc disease. Mild malalignment. Elbow X-Ray 10/18/16 00:00 IMPRESSION: Probable bursitis. Abdomen Ultrasound 10/21/16 00:00 IMPRESSION: LIMITED STUDY DUE TO PATIENT'S BODY HABITUS. FATTY INFILTRATION OF THE LIVER. THE LEFT KIDNEY IS NOT VISUALIZED WHICH MAY BE DUE TO THE TECHNICAL LIMITATIONS VERSUS ABSENCE OR ECTOPIC POSITION OF THE KIDNEY. NO OTHER SIGNIFICANT FINDING IN THE VISUALIZED ABDOMEN. Hand X-Ray 10/21/16 00:00 IMPRESSION: Osteoarthritis as above. Venous Doppler Study 10/22/16 00:00 IMPRESSION: NO EVIDENCE DVT OR SVT IN THE RIGHT ARM. Chest X-Ray 10/26/16 00:00 IMPRESSION: No change. Left lower lobe pneumonia remains.
[2016-10-28] MEDS ORDERED: POTASSIUM CHLORIDE 10 MEQ TABLET.SA PO SCH (10:00)
[2016-10-28] MEDS ORDERED: FUROSEMIDE 40 MG TABLET PO SCH (10:00)
[2016-10-28] MEDS: FOLIC ACID 1 MG TABLET PO SCH (13:37)
[2016-10-28] MEDS: MULTIVITAMIN TABLET PO SCH (13:37)
[2016-10-28] MEDS: GABAPENTIN 300 MG CAPSULE PO SCH (13:38)
[2016-10-28] MEDS: PREDNISONE 20 MG TABLET PO SCH (13:39)
[2016-10-28] MEDS: THIAMINE HCL 100 MG TABLET PO SCH (13:39)
[2016-10-28] MEDS: LEVOFLOXACIN 500 MG TABLET PO SCH (13:39)
[2016-10-28] MEDS: ATENOLOL 50 MG TABLET PO SCH (13:40)
[2016-10-28] MEDS: NYSTATIN TOPICAL POWDER 15 GM TP SCH (14:12)
[2016-10-28 16:38] VITALS: BP 121/74
[2016-10-29] MEDS ORDERED: PREDNISONE 10 MG TABLET PO SCH (10:00)
== END 2016-10-28 17:00 | disposition home or self-care (01) | DRG 871 ==
LOC: ER 17:25 → EH 21:12 → UNDOADMIN 21:12 → EH 22:13 → 4N 10-15 01:00
PROVIDERS: ADMIT Family Medicine; ATTEND Family Medicine
PROC: 3E0F73Z Introduction of Anti-inflammatory into Respiratory Tract, Via Natural or Artificial Opening (ICD-10-PCS; 2016-10-14)
PROC: 5A09457 Assistance with Respiratory Ventilation, 24-96 Consecutive Hours, Continuous Positive Airway Pressure (ICD-10-PCS; principal; 2016-10-16)
DX: A41.50 Gram-negative sepsis, unspecified (principal); J18.9 Pneumonia, unspecified organism; I50.43 Acute on chronic combined systolic (congestive) and diastolic (congestive) heart failure; J96.22 Acute and chronic respiratory failure with hypercapnia; J44.1 Chronic obstructive pulmonary disease with (acute) exacerbation; N18.4 Chronic kidney disease, stage 4 (severe); E66.2 Morbid (severe) obesity with alveolar hypoventilation; Z68.42 Body mass index [BMI] 45.0-49.9, adult; L03.113 Cellulitis of right upper limb; N17.9 Acute kidney failure, unspecified; G83.4 Cauda equina syndrome; I13.10 Hypertensive heart and chronic kidney disease without heart failure, with stage 1 through stage 4 chronic kidney disease, or unspecified chronic kidney disease; D69.6 Thrombocytopenia, unspecified; I27.2 Other secondary pulmonary hypertension; J44.9 Chronic obstructive pulmonary disease, unspecified; I48.2 Chronic atrial fibrillation; E03.9 Hypothyroidism, unspecified; E78.5 Hyperlipidemia, unspecified; I87.2 Venous insufficiency (chronic) (peripheral); M19.90 Unspecified osteoarthritis, unspecified site; M70.21 Olecranon bursitis, right elbow; E87.6 Hypokalemia; F17.210 Nicotine dependence, cigarettes, uncomplicated; J06.9 Acute upper respiratory infection, unspecified; M50.30 Other cervical disc degeneration, unspecified cervical region; F10.20 Alcohol dependence, uncomplicated; Z79.01 Long term (current) use of anticoagulants; Z79.82 Long term (current) use of aspirin; Z79.899 Other long term (current) drug therapy; Z99.81 Dependence on supplemental oxygen; Z91.19 Patient's noncompliance with other medical treatment and regimen; Z86.718 Personal history of other venous thrombosis and embolism; Z88.6 Allergy status to analgesic agent; Z88.8 Allergy status to other drugs, medicaments and biological substances
CPT/HCPCS: 36415; 36600; 71010; 72125; 76700; 80048; 80053; 81001; 82272; 82550; 82553; 82803; 83605; 83735; 83880; 84443; 84484; 85025; 85027; 85610; 86022; 87040; 87077; 87086; 87493; 93005; 93010; 93306; 93971; 94660; 94762; 96374; 99285; G8978-GP; G8979-GP; J0696; J0743; J1940; J1956; J3490; J7030; J7512; J7620

== ENCOUNTER 2016-11-03 21:11 | Inpatient (IN) | payer MEDICARE ==
[2016-11-03] MEDS ORDERED: ONDANSETRON HCL INJ/PF 4 MG/2 ML SDV ONE (21:49)
[2016-11-03 22:00] LABS: HEMATOCRIT 32.9 % (36.0-47.0); HEMOGLOBIN 10.7 g/dL (12.0-15.5); HGB HCT DIFFERENCE -0.8; MEAN CORPUSCULAR HEMOGLOBIN 30.2 pg (27.0-33.4); MEAN CORPUSCULAR HGB CONC 32.4 g/dL (32.0-36.0); MEAN CORPUSCULAR VOLUME 93 fl (80-97); RED BLOOD COUNT 3.54 10^6/uL (3.72-5.28); RED CELL DISTRIBUTION WIDTH 18.5 % (11.5-14.0); WHITE BLOOD COUNT 15.1 10^3/uL (4.0-10.5)
[2016-11-03 22:01] LABS: ALANINE AMINOTRANSFERASE 60 U/L (9-52); ALBUMIN 2.8 g/dL (3.5-5.0); ALKALINE PHOSPHATASE 88 U/L (38-126); ASPARTATE AMINO TRANSFERASE 41 U/L (14-36); BILIRUBIN,DIRECT 0.4 mg/dL (0.0-0.4); BILIRUBIN,TOTAL 1.3 mg/dL (0.2-1.3); BLOOD UREA NITROGEN 86 mg/dL (7-20); CALCIUM 8.5 mg/dL (8.4-10.2); CHLORIDE 92 mmol/L (98-107); CREATININE RESULT 1.48 mg/dL (0.52-1.25); GLUCOSE 122 mg/dL (75-110); LIPASE 168.1 U/L (23-300); POTASSIUM 4.6 mmol/L (3.6-5.0); SODIUM 142.4 mmol/L (137-145); TOTAL PROTEIN 5.6 g/dL (6.3-8.2)
[2016-11-03 22:08] LABS: PROTHROMBIN TIME 16.3 SEC (11.4-15.4)
[2016-11-03 22:09] LABS: ANION GAP 9 (5-19)
[2016-11-03] MEDS ORDERED: OCTREOTIDE ACETATE INJ/PF 100 MCG/1 ML SDV IV ONE (22:15)
[2016-11-03] MEDS ORDERED: CEFTRIAXONE 1 GM/D5W RTU 50 ML IV ONE (22:15)
[2016-11-03] MEDS ORDERED: PANTOPRAZOLE SODIUM 40 MG VIAL IV ONE (22:15)
[2016-11-03 22:20] LABS: BAND NEUTROPHILS % (MANUAL) 1 % (3-5); BASOPHILS % (MANUAL) 1 % (0-2); CARBON DIOXIDE 41 mmol/L (22-30); EOSINOPHILS % (MANUAL) 1 % (0-6); LYMPHOCYTES % (MANUAL) 4 % (13-45); TOTAL CELLS COUNTED 100
[2016-11-03 22:23] LABS: ANISOCYTOSIS 2+; POLYCHROMASIA SLIGHT
[2016-11-03 22:24] LABS: POIKILOCYTOSIS SLIGHT; TARGET CELLS 1+
[2016-11-03] MEDS ORDERED: FENTANYL CITRATE INJ/PF 100 MCG/2 ML AMPUL IV ONE (22:42)
[2016-11-03] MEDS ORDERED: ONDANSETRON HCL INJ/PF 4 MG/2 ML SDV IV ONE (22:43)
[2016-11-03] MEDS ORDERED: ACETAMINOPHEN 325 MG TABLET PO PRN (23:00)
[2016-11-03] MEDS ORDERED: LEVOFLOXACIN 500 MG/D5W RTU 500 MG/100 ML RTUPB IV ONE (23:00)
[2016-11-03] MEDS ORDERED: MAGNESIUM HYDROXIDE SUSP 30 ML UDCUP PO PRN (23:03)
--- NOTE | 2016-11-03 23:05 | ER Document Report ---
ED GI/ - General Chief Complaint: Abdominal Pain Stated Complaint: ABDOMINAL PAIN Notes: Patient is a 71-year-old female who presents emergency Department complaining of abdominal pain with onset at 8 PM with associated diarrhea and emesis. Patient states that her abdominal pain is epigastric in nature constant sharp and stabbing. She states that she has been up twice today with positive hematemesis. States she has been having loose bowel movements today with positive bright red blood per rectum as well as hematochezia. Patient has been staying at a rehabilitation facility after recent discharge on October 28 from [facility] for treatment of upper respiratory infection and bacteremia. Denies any chest pain, shortness of breath, difficulty breathing, productive cough, difficulty swallowing. Past medical history significant for chronic atrial fibrillation on Coumadin, history of DVTs most recently 2010, chronic venous stasis of the bilateral lower extremities, congestive heart failure nonspecific, pulmonary hypertension , obstructive sleep apnea on CPAP, morbid obesity, COPD not on home O2, hypothyroidism and hyperlipidemia Primary care physician is Dr. Clark but being followed by Dr. Iniguez at rehabilitation Social history significant for history of alcohol abuse. Prior to admission to the hospital October 14 she was drinking half a pint a day of whiskey. TRAVEL OUTSIDE OF THE [place] IN LAST 30 DAYS: No - Related Data Allergies/Adverse Reactions: codeine [Codeine] Adverse Reaction (Mild, Verified 11/04/16 04:23) VOMITING morphine Adverse Reaction (Verified 11/04/16 04:23) oxycodone [From Percocet] Adverse Reaction (Verified 11/04/16 04:23) prednisone Adverse Reaction (Verified 11/04/16 04:23) Past Medical History - Social History Smoking Status: Unknown if Ever Smoked Chew tobacco use (# tins/day): No Frequency of alcohol use: None Drug Abuse: None Family History: Reviewed & Not Pertinent - Past Medical History Cardiac Medical History: Reports: Hx Atrial Fibrillation, Hx Congestive Heart Failure, Hx DVT, Hx Hypercholesterolemia, Hx Hypertension Denies: Hx Pulmonary Embolism Pulmonary Medical History: Reports: Hx COPD, Hx Sleep Apnea Neurological Medical History: Denies: Hx Seizures Endocrine Medical History: Reports: Hx Hypothyroidism. Denies: Hx Diabetes Mellitus Type 1, Hx Diabetes Mellitus Type 2, Hx Hyperthyroidism Renal/ Medical History: Denies: Hx Peritoneal Dialysis GI Medical History: Denies: Hx Cirrhosis, Hx Hepatitis Musculoskeltal Medical History: Reports Hx Arthritis Psychiatric Medical History: Denies: Hx Depression Infectious Medical History: Denies: Hx C-Diff, Hx Hepatitis, Hx MRSA Past Surgical History: Reports: Hx Orthopedic Surgery, Hx Tonsillectomy Review of Systems - Review of Systems Constitutional: No symptoms reported Cardiovascular: No symptoms reported Respiratory: No symptoms reported Gastrointestinal: See HPI Genitourinary: No symptoms reported Female Genitourinary: No symptoms reported Musculoskeletal: Back pain - Chronic, Joint pain - Chronic, Leg swelling - Consistent with baseline, Ankle swelling - Consistent with baseline Skin: Dryness -: Yes All other systems reviewed and negative Physical Exam - Vital signs Vitals: Temp Pulse Resp BP Pulse Ox 99.4 F 75 22 H 103/67 95 11/03/16 21:42 11/03/16 21:42 11/03/16 21:42 11/03/16 21:42 11/03/16 21:42 - Notes Notes: PHYSICAL EXAM GENERAL: Alert, interacts well. HEAD: Normocephalic, atraumatic. EYES: Pupils equal, round, and reactive to light. Extraocular movements intact. ENT: Oral mucosa moist, tongue midline. NECK: Full range of motion. Supple. Trachea midline. LUNGS: Clear to auscultation bilaterally, no wheezes, rales, or rhonchi. No respiratory distress. HEART: Regular rate and rhythm. No murmurs, gallops, or rubs. ABDOMEN: Soft, mildly distended, moderately tender at the epigastric area. No guarding, rebound, or rigidity.. Bowel sounds present in all 4 quadrants. Rectal: Rectal tone intact, evidence of blood per rectum, loose stool within the rectal vault. EXTREMITIES: Moves all 4 extremities spontaneously. 2+ pitting edema in bilateral lower extremities, radial and dorsalis pedis pulses 2/4 bilaterally. No cyanosis. NEUROLOGICAL: Alert and oriented x4. Normal speech. PSYCH: Normal affect, normal mood. SKIN: Warm, dry, normal turgor. No evidence of venous stasis changes of the bilateral lower extremities consistent with coronary disease Course - Re-evaluation Re-evalutation: 11/03/16 23:15 Patient is a 71-year-old female who is hemodynamically stable, no acute distress and afebrile. History and physical Exam as well as the findings of positive epigastric and stool occult suggestive of upper GI bleed. INR 1.26 does not suggest supratherapeutic for Coumadin. Concern for esophageal varices given patient's history of chronic alcohol use. This time patient has had a drop in hemoglobin from 13.1-10.7 and hct of 32.9. Her team health guidelines, just admitting this patient with supervising physician Dr. Lilo Ontiveros who agrees with plan. Discussed plan with patient is agreeable. I consulted Dr. Orville Hernández hospitalist on-call who agrees for admission to the for inpatient telemetry for management of upper GI bleed and consultation of gastroenterology. 11/04/16 00:13 Patient has become hypotensive during her stay in the ED, a second IV was placed and IVF intiated, Dr. Ontiveros and Dr. Hernández aware. - Vital Signs Vital signs: Temp Pulse Resp BP Pulse Ox 97.8 F 75 13 68/39 L 98 11/04/16 06:31 11/03/16 21:42 11/04/16 07:04 11/04/16 07:04 11/04/16 07:04 - Laboratory Result Diagrams: 11/04/16 06:20 11/04/16 06:20 Laboratory results interpreted by me: 11/03/16 11/03/16 11/03/16 21:30 21:30 21:30 WBC 15.1 H RBC 3.54 L Hgb 10.7 L Hct 32.9 L RDW 18.5 H Plt Count 141 L Seg Neuts % (Manual) 91 H Band Neutrophils % 1 L Lymphocytes % (Manual) 4 L Monocytes % (Manual) 2 L Abs Neuts (Manual) 13.9 H PT 16.3 H Chloride 92 L Carbon Dioxide 41 H* BUN 86 H Creatinine 1.48 H Est GFR ( Amer) 42 L Est GFR (Non-Af Amer) 35 L Glucose 122 H AST 41 H ALT 60 H Total Protein 5.6 L Albumin 2.8 L - EKG Interpretation by Me Rhythm: A.Fib When compared to previous EKG there are: No significant change Procedures - Additional Procedures IV insertion Additional Procedures: IV insertion Notes: 11/04/16 00:20 20 gauge placed under direct visualization in the right hand Discharge - Discharge Clinical Impression: Upper gastrointestinal hemorrhage Admitting Provider: Hospitalist - Dr. Orville Hernández Unit Admitted: Telemetry
[2016-11-03] MEDS ORDERED: NORMAL SALINE 1000 ML 1,000 ML IV ONE (23:06)
[2016-11-03] MEDS ORDERED: SUCRALFATE SUSP 1 GM/10 ML UDCUP PO ONE (23:15)
[2016-11-03 23:54] LABS: HEMATOCRIT 31.2 % (36.0-47.0); HEMOGLOBIN 10.1 g/dL (12.0-15.5); HGB HCT DIFFERENCE -0.9; MEAN CORPUSCULAR HEMOGLOBIN 29.9 pg (27.0-33.4); MEAN CORPUSCULAR HGB CONC 32.4 g/dL (32.0-36.0); MEAN CORPUSCULAR VOLUME 92 fl (80-97); RED BLOOD COUNT 3.38 10^6/uL (3.72-5.28); RED CELL DISTRIBUTION WIDTH 17.8 % (11.5-14.0); WHITE BLOOD COUNT 15.8 10^3/uL (4.0-10.5)
--- NOTE | 2016-11-04 00:09 | PDOC H&P ---
History of Present Illness Admission Date/PCP: MICHEAL BARRY MD Patient complains of: Coffee-ground emesis History of Present Illness: MARIANO HENRY is a 71 year old female with an extensive past medical history including discharged from acute care hospital 6 days ago for URI with gram- negative bacteremia, History includes diastolic heart failure, severe pulmonary hypertension, atrial fibrillation, chronic anticoagulation, obstructive sleep apnea, morbid obesity, venous stasis, deep vein thrombosis and stage III chronic kidney disease. She felt she was doing well with exception to severe constipation and abdominal pain followed by coffee-ground emesis approximately 6 hours prior to presentation. In the emergency room she's found to have Hemoccult and Gastroccult positive labs, leukocytosis, hypercapnia. She complains of pain and receives fentanyl resulting in hypotension and further reduced respiratory drive, requiring Narcan and IV fluid bolus. Patient states rehabilitation has not provided BiPAP for her use. Past Medical History Cardiac Medical History: Reports: Atrial Fibrillation, Congestive Heart Failure , DVT, Hyperlipidema, Hypertension Denies: Pulmonary Embolism Pulmonary Medical History: Reports: Chronic Obstructive Pulmonary Disease (COPD) , Sleep Apnea Neurological Medical History: Denies: Seizures Endocrine Medical History: Reports: Hypothyroidism Denies: Diabetes Mellitus Type 1, Diabetes Mellitus Type 2, Hyperthyroidism GI Medical History: Denies: Cirrhosis, Hepatitis Musculoskeltal Medical History: Reports: Arthritis Psychiatric Medical History: Denies: Depression Infectious Medical History: Denies: Clostridium Difficile, Methicillin-Resistant Staph Aureus Past Surgical History Past Surgical History: Reports: Orthopedic Surgery, Tonsillectomy Social History Information Source: Patient, [facility] Records Lives with: Long Term Smoking Status: Unknown if Ever Smoked Frequency of Alcohol Use: Heavy Drugs: None - Advance Directive Resuscitation Status: Full Code Family History Family History: COPD Parental Family History Reviewed: Yes Children Family History Reviewed: Yes Sibling(s) Family History Reviewed.: Yes Medication/Allergy Home Medications: Aspirin [Aspirin EC] 81 mg PO DAILY 10/15/16 Acetaminophen [Tylenol 325 mg Tablet] 650 mg PO Q8HP PRN #0 tablet 10/28/16 Atenolol [Tenormin 50 mg Tablet] 25 mg PO DAILY #0 tablet 10/28/16 Atorvastatin Calcium [Lipitor 40 mg Tablet] 40 mg PO QHS #0 tablet 10/28/16 Folic Acid [Folvite 1 mg Tablet] 1 mg PO DAILY #0 tablet 10/28/16 Furosemide [Lasix] 40 mg PO DAILY #0 10/28/16 Gabapentin [Neurontin 300 mg Capsule] 300 mg PO Q12 #0 capsule 10/28/16 Levalbuterol HCl [Xopenex Neb 1.25 mg/3 ml Ampul] 1.25 mg NEB RTQ6HP PRN #0 vial.neb 10/28/16 Levofloxacin [Levaquin 500 mg Tablet] 500 mg PO DAILY #7 tablet 10/28/16 Levothyroxine Sodium [Synthroid 0.15 mg Tablet] 0.15 mg PO Q6AM #0 tablet Mag Hydrox/Al Hydrox/Simeth [Maalox Plus Susp 30 Udcup] 30 ml PO Q6HP PRN #0 udc 10/28/16 Multivitamin [Tab-A-Isabella (Multiple Vitamin) Tablet] 1 tab PO DAILY #0 tablet Nicotine [Nicoderm 21 mg/24 Hr Transderm Patch] 1 each TD DAILYP PRN #0 patch.td24 10/28/16 Nystatin [Mycostatin Topical Powder 15 gm] 1 applic TP BID #0 bottle 10/28/16 Potassium Chloride [Klor-Con 10 Meq Tablet.sa] 10 meq PO DAILY #0 tablet.sa Prednisone [Deltasone 20 mg Tablet] 10 mg PO DAILY #0 tablet 10/28/16 Sildenafil Citrate [Revatio 20 mg Tablet] 20 mg PO MEALS #0 tablet 10/28/16 Thiamine HCl [Thiamine 100 mg Tablet] 100 mg PO DAILY #0 tablet 10/28/16 Warfarin Sodium [Coumadin 2.5 mg Tablet] 2.5 mg PO QHS #0 tablet 10/28/16 Allergies/Adverse Reactions: codeine [Codeine] Adverse Reaction (Mild, Unverified 10/14/16 22:11) VOMITING morphine Adverse Reaction (Verified 10/14/16 22:11) oxycodone [From Percocet] Adverse Reaction (Verified 10/14/16 22:11) prednisone Adverse Reaction (Verified 10/14/16 22:11) Review of Systems Constitutional: PRESENT: fatigue, weakness Eyes: ABSENT: visual disturbances Ears: ABSENT: hearing changes Cardiovascular: ABSENT: chest pain, dyspnea on exertion, edema, orthropnea, palpitations Respiratory: PRESENT: dyspnea. ABSENT: cough, hemoptysis, sputum Gastrointestinal: PRESENT: abdominal pain, bloating, coffee ground emesis, constipation, heartburn, melena, nausea, vomiting. ABSENT: hematemesis Genitourinary: ABSENT: dysuria, hematuria Musculoskeletal: PRESENT: back pain, muscle weakness. ABSENT: deformity, joint swelling Integumentary: ABSENT: rash, wounds Neurological: ABSENT: abnormal gait, abnormal speech, confusion, dizziness, focal weakness, syncope Psychiatric: ABSENT: anxiety, depression, homidical ideation, suicidal ideation Endocrine: ABSENT: cold intolerance, heat intolerance, polydipsia, polyuria Hematologic/Lymphatic: ABSENT: easy bleeding, easy bruising Physical Exam Vital Signs: Temp Pulse Resp BP Pulse Ox 99.4 F 75 22 H 103/67 95 11/03/16 21:42 11/03/16 21:42 11/03/16 21:42 11/03/16 21:42 11/03/16 21:42 General appearance: PRESENT: mild distress, morbidly obese Head exam: PRESENT: atraumatic, normocephalic Eye exam: PRESENT: conjunctiva pink, EOMI, PERRLA. ABSENT: scleral icterus Ear exam: PRESENT: normal external ear exam Mouth exam: PRESENT: dry mucosa, tongue midline Neck exam: ABSENT: carotid bruit, JVD, lymphadenopathy, thyromegaly Respiratory exam: PRESENT: crackles, prolonged expiratory phas, symmetrical, unlabored. ABSENT: rales, rhonchi, tachypnea, wheezes Cardiovascular exam: PRESENT: irregular rhythm, +S1, +S2, systolic murmur Pulses: PRESENT: normal dorsalis pedis pul Vascular exam: PRESENT: normal capillary refill GI/Abdominal exam: PRESENT: diminished bowel sounds, distended, hypoactive bowel sounds, soft, tenderness. ABSENT: organolmegaly, rebound, rigid Rectal exam: PRESENT: deferred Extremities exam: PRESENT: +2 edema Neurological exam: PRESENT: alert, awake, oriented to person, oriented to place , oriented to time, oriented to situation, CN II-XII grossly intact. ABSENT: motor sensory deficit Psychiatric exam: PRESENT: appropriate affect, flat affect. ABSENT: homicidal ideation, suicidal ideation Skin exam: PRESENT: other - Bilateral lower extremity chronic changes of venous stasis Results Laboratory Results: 11/03/16 21:30 11/03/16 21:30 11/03/16 11/03/16 21:30 21:30 WBC 15.1 H RBC 3.54 L Hgb 10.7 L Hct 32.9 L MCV 93 MCH 30.2 MCHC 32.4 RDW 18.5 H Plt Count 141 L Seg Neutrophils % Not Reportable Lymphocytes % Not Reportable Monocytes % Not Reportable Eosinophils % Not Reportable Basophils % Not Reportable Absolute Neutrophils Not Reportable Absolute Lymphocytes Not Reportable Absolute Monocytes Not Reportable Absolute Eosinophils Not Reportable Absolute Basophils Not Reportable Sodium 142.4 Potassium 4.6 Chloride 92 L Carbon Dioxide 41 H* Anion Gap 9 BUN 86 H Creatinine 1.48 H Est GFR ( Amer) 42 L Est GFR (Non-Af Amer) 35 L Glucose 122 H Calcium 8.5 Total Bilirubin 1.3 AST 41 H ALT 60 H Alkaline Phosphatase 88 Total Protein 5.6 L Albumin 2.8 L Lipase 168.1 Assessment & Plan - Diagnosis (1) Heme positive stool Is this a current diagnosis for this admission?: YesPlan: Gastroccult positive elevated BUNs strongly suggest gastric source, she is placed on IV Protonix and Carafate and nothing by mouth with CBC every 6 hours, type and screen with GI consultation, Coumadin held (2) Acute and chronic respiratory failure with hypercapnia Is this a current diagnosis for this admission?: YesPlan: Patient serially noncompliance with BiPAP in recollection with recent hospitalization and admission of 9 use of the last 3 days, collocated by chronic back pain, morbid obesity hypoventilation syndrome. I will order BiPAP and educate patient failing this given her history including severe pulmonary hypertension hospice should be considered (3) Bacteremia due to Gram-negative bacteria Is this a current diagnosis for this admission?: YesPlan: IV Levaquin ordered day 6 of 7, panculture if spiking fevers (4) CHF (congestive heart failure) Qualifiers: Congestive heart failure type: diastolic Congestive heart failure chronicity: acute on chronic Qualified Code(s): I50.33 - Acute on chronic diastolic (congestive) heart failure Is this a current diagnosis for this admission?: YesPlan: Avoid volume overload, BiPAP support (5) Moderate to severe pulmonary hypertension Is this a current diagnosis for this admission?: YesPlan: Sildenafil ordered and continue BiPAP (6) Obesity hypoventilation syndrome Is this a current diagnosis for this admission?: YesPlan: Please see above, noncompliance with BiPAP severely complicating stability or meaningful recovery (7) Obstructive sleep apnea Is this a current diagnosis for this admission?: YesPlan: Please see former (8) Anticoagulated on Coumadin Is this a current diagnosis for this admission?: YesPlan: Held secondary to upper GI bleed (9) Atrial fibrillation Qualifiers: Atrial fibrillation type: chronic Qualified Code(s): I48.2 - Chronic atrial fibrillation Is this a current diagnosis for this admission?: YesPlan: Rate controlled anticoagulation held given GI bleed (10) CKD (chronic kidney disease), stage III Is this a current diagnosis for this admission?: YesPlan: Patient high risk for overdiuresis, avoid nephrotoxic meds and doses reevaluate chemistry - Time Time Spent: 50 to 70 Minutes - Inpatient Certification Medical Necessity: Need Close Monitoring Due to Risk of Patient Decompensation
[2016-11-04] MEDS ORDERED: PANTOPRAZOLE SODIUM 40 MG VIAL IV PRN (00:17)
[2016-11-04] MEDS: NORMAL SALINE 100 ML with PANTOPRAZOLE SODIUM 80 MG IV PRN ×4 (02:03→08:30)
[2016-11-04] MEDS ORDERED: HEPARIN SOD (PORCINE) 5,000 UNIT/ML 1 ML SYRINGE SUBCUT SCH (06:00)
[2016-11-04 06:50] LABS: HEMATOCRIT 28.1 % (36.0-47.0); HEMOGLOBIN 9.1 g/dL (12.0-15.5); HGB HCT DIFFERENCE -0.8; MEAN CORPUSCULAR HEMOGLOBIN 30.7 pg (27.0-33.4); MEAN CORPUSCULAR HGB CONC 32.3 g/dL (32.0-36.0); MEAN CORPUSCULAR VOLUME 95 fl (80-97); RED BLOOD COUNT 2.96 10^6/uL (3.72-5.28); RED CELL DISTRIBUTION WIDTH 18.2 % (11.5-14.0); WHITE BLOOD COUNT 13.9 10^3/uL (4.0-10.5)
[2016-11-04 07:07] LABS: BLOOD UREA NITROGEN 82 mg/dL (7-20); CALCIUM 7.9 mg/dL (8.4-10.2); CHLORIDE 95 mmol/L (98-107); CREATININE RESULT 1.44 mg/dL (0.52-1.25); GLUCOSE 127 mg/dL (75-110); POTASSIUM 4.5 mmol/L (3.6-5.0)
[2016-11-04] MEDS: LEVALBUTEROL HCL NEB 1.25 MG/3 ML AMPUL NEB SCH ×4 (07:15→20:13)
[2016-11-04] MEDS: IPRATROPIUM BROMIDE 0.02% NEB 0.5 MG/2.5 ML AMPUL NEB SCH ×4 (07:15→20:14)
[2016-11-04 07:28] LABS: ANION GAP 7 (5-19)
[2016-11-04 07:30] LABS: CARBON DIOXIDE 42 mmol/L (22-30)
--- NOTE | 2016-11-04 07:42 | EKG REPORT ---
SEVERITY:- ABNORMAL ECG - ATRIAL FIBRILLATION MULTIPLE VENTRICULAR PREMATURE COMPLEXES BORDERLINE T ABNORMALITIES, ANTERIOR LEADS : Confirmed by: Cecilia Fitch 04-Nov-2016 07:42:05
[2016-11-04] MEDS: SILDENAFIL CITRATE 20 MG TABLET PO SCH ×3 (09:20→15:50)
[2016-11-04] MEDS: ASPIRIN 81 MG TABLET, ENT COATED PO SCH (09:20)
[2016-11-04] MEDS: LEVOTHYROXINE SODIUM 0.15 MG TABLET PO SCH (09:21)
[2016-11-04] MEDS: DOCUSATE SODIUM 100 MG CAPSULE PO SCH ×2 (09:21→15:50)
[2016-11-04] MEDS: FOLIC ACID 1 MG TABLET PO SCH (09:21)
[2016-11-04] MEDS: GABAPENTIN 300 MG CAPSULE PO SCH ×2 (09:21→23:14)
[2016-11-04] MEDS ORDERED: MAG HYDROX/AL HYDROX/SIMETH SUSP 30 ML UDCUP PO PRN (09:21)
[2016-11-04] MEDS: NYSTATIN TOPICAL POWDER 15 GM TP SCH ×2 (09:22→18:15)
[2016-11-04] MEDS: FUROSEMIDE 40 MG TABLET PO SCH (10:00)
[2016-11-04] MEDS ORDERED: GABAPENTIN 300 MG CAPSULE PO SCH (10:00)
[2016-11-04] MEDS ORDERED: PREDNISONE 10 MG TABLET PO SCH (10:00)
[2016-11-04] MEDS ORDERED: NYSTATIN TOPICAL POWDER 15 GM TOP SCH (10:00)
[2016-11-04] MEDS: THIAMINE HCL 100 MG TABLET PO SCH (10:00)
[2016-11-04] MEDS ORDERED: FOLIC ACID 1 MG TABLET PO SCH (10:00)
[2016-11-04] MEDS: ATENOLOL 50 MG TABLET PO SCH (10:00)
[2016-11-04] MEDS ORDERED: POTASSIUM CHLORIDE 10 MEQ TABLET.SA PO SCH (10:00)
[2016-11-04] MEDS ORDERED: (PENDING PHARMACY ID) (Atenolol [Tenormin] 25 MG) PO SCH (10:00)
[2016-11-04] MEDS ORDERED: ATENOLOL 50 MG TABLET PO SCH (10:00)
[2016-11-04] MEDS: MULTIVITAMIN TABLET PO SCH (10:00)
[2016-11-04] MEDS: NORMAL SALINE 1000 ML 1,000 ML IV PRN (10:12)
[2016-11-04] MEDS ORDERED: LEVALBUTEROL HCL NEB 1.25 MG/3 ML AMPUL NEB SCH (12:00)
[2016-11-04] MEDS ORDERED: SILDENAFIL CITRATE 20 MG TABLET PO SCH (12:00)
[2016-11-04 12:11] LABS: APPEARANCE,URINE CLEAR; BILIRUBIN,URINE NEGATIVE (NEGATIVE); GLUCOSE, URINE NEGATIVE (NEGATIVE); KETONES,URINE NEGATIVE (NEGATIVE); LEUKOCYTE ESTERASE,URINE NEGATIVE (NEGATIVE); NITRITE,URINE NEGATIVE (NEGATIVE); PROTEIN,URINE 30 mg/dL (NEGATIVE); UROBILINOGEN,URINE NEGATIVE mg/dL (<2.0)
--- NOTE | 2016-11-04 12:14 | PDOC PROGRESS REPORT ---
Subjective Progress Note for:: 11/04/16 Subjective:: The patient states to feel slightly better. She is still having some epigastric discomfort but denies any further vomiting. Physical Exam Vital Signs: Temp Pulse Resp BP Pulse Ox 97.8 F 60 15 93/53 L 94 11/04/16 06:31 11/04/16 08:43 11/04/16 11:45 11/04/16 11:45 11/04/16 11:45 Intake & Output 11/03/16 11/04/16 11/05/16 06:59 06:59 06:59 Output Total 50 Balance -50 Weight 121.9 kg General appearance: PRESENT: mild distress Head exam: PRESENT: atraumatic Eye exam: PRESENT: conjunctiva pink Neck exam: ABSENT: carotid bruit Respiratory exam: PRESENT: rhonchi Cardiovascular exam: PRESENT: irregular rhythm Pulses: PRESENT: +1 pedal pulses bilateral GI/Abdominal exam: PRESENT: soft, tenderness Extremities exam: PRESENT: tenderness Musculoskeletal exam: PRESENT: tenderness Neurological exam: PRESENT: alert, awake, oriented to time Results Laboratory Results: 11/04/16 06:20 11/04/16 06:20 11/03/16 11/04/16 11/04/16 23:35 06:20 06:20 WBC 15.8 H 13.9 H RBC 3.38 L 2.96 L Hgb 10.1 L 9.1 L Hct 31.2 L 28.1 L MCV 92 95 MCH 29.9 30.7 MCHC 32.4 32.3 RDW 17.8 H 18.2 H Plt Count 98 L 101 L Sodium 144.0 Potassium 4.5 Chloride 95 L Carbon Dioxide 42 H* Anion Gap 7 BUN 82 H Creatinine 1.44 H Est GFR ( Amer) 43 L Est GFR (Non-Af Amer) 36 L Glucose 127 H Calcium 7.9 L Assessment & Plan - Diagnosis (1) Acute upper gastrointestinal bleeding Is this a current diagnosis for this admission?: YesPlan: We'll place on nothing by mouth status. We'll stop all anticoagulation. GI consultation and surgical consultation Recheck blood counts (2) Anemia associated with acute blood loss Is this a current diagnosis for this admission?: YesPlan: We'll continue monitoring H&H. We'll consider transfusion (3) Hypotension due to blood loss Is this a current diagnosis for this admission?: YesPlan: We'll start IV fluids (4) Moderate to severe pulmonary hypertension Is this a current diagnosis for this admission?: YesPlan: Continue current medications (5) Atrial fibrillation Qualifiers: Atrial fibrillation type: chronic Qualified Code(s): I48.2 - Chronic atrial fibrillation Is this a current diagnosis for this admission?: YesPlan: Continue current treatment. Will hold anticoagulation because of acute GI bleed (6) Obesity hypoventilation syndrome Is this a current diagnosis for this admission?: YesPlan: Continue BiPAP (7) Obstructive sleep apnea Is this a current diagnosis for this admission?: Yes
[2016-11-04 12:16] LABS: HEMATOCRIT 26.6 % (36.0-47.0); HEMOGLOBIN 8.4 g/dL (12.0-15.5); HGB HCT DIFFERENCE -1.4; MEAN CORPUSCULAR HEMOGLOBIN 29.9 pg (27.0-33.4); MEAN CORPUSCULAR HGB CONC 31.5 g/dL (32.0-36.0); MEAN CORPUSCULAR VOLUME 95 fl (80-97); RED CELL DISTRIBUTION WIDTH 18.4 % (11.5-14.0)
--- NOTE | 2016-11-04 12:34 | PDOC CONSULTATION ---
Consultation Consult Date: 11/04/16 Attending physician:: DARRYL ADAN Consult reason:: Epigastric pain with melena. GI bleeding History of Present Illness Admission Date/PCP: 11/03/16 23:03 MICHEAL BARRY MD History of Present Illness: patient present tot ED overnight I was asked to see this patient by Dr Hernández who is covering for her regular attending overnight patient has been having epigastric abdominal pain and had melena she has had a drop of her Hgb patient has respiratory issues and has had hypoventilation syndrome in the past she does use Fentanyl ? if she can tolerate any sort of procedure with conscious sedation she will need an EGD to work up for her GI bleed suspect possible peptic ulcer disease however will need to have Propofol sedation with close anesthesia observation for her procedure she has multiple medical problems as well does use meds for chronic anticoagulation, however her INR is adequate Past Medical History Cardiac Medical History: Reports: Atrial Fibrillation, Congestive Heart Failure , DVT, Hyperlipidema, Hypertension Denies: Pulmonary Embolism Pulmonary Medical History: Reports: Chronic Obstructive Pulmonary Disease (COPD) , Sleep Apnea Neurological Medical History: Denies: Seizures Endocrine Medical History: Reports: Hypothyroidism Denies: Diabetes Mellitus Type 1, Diabetes Mellitus Type 2, Hyperthyroidism GI Medical History: Denies: Cirrhosis, Hepatitis Musculoskeltal Medical History: Reports: Arthritis Psychiatric Medical History: Denies: Depression Infectious Medical History: Denies: Clostridium Difficile, Methicillin-Resistant Staph Aureus Past Surgical History Past Surgical History: Reports: Orthopedic Surgery, Tonsillectomy Social History Lives with: Fpc Smoking Status: Unknown if Ever Smoked Frequency of Alcohol Use: Heavy Drugs: None - Advance Directive Resuscitation Status: Full Code Family History Family History: Reviewed & Not Pertinent Parental Family History Reviewed: Yes Children Family History Reviewed: Unknown Sibling(s) Family History Reviewed.: Unknown Medication/Allergy Home Medications: Acetaminophen [Tylenol 325 mg Tablet] 650 mg PO Q8HP PRN 11/04/16 Aspirin [Aspirin EC] 81 mg PO DAILY 11/04/16 Atenolol [Tenormin] 25 mg PO DAILY 11/04/16 Atorvastatin Calcium [Lipitor 40 mg Tablet] 40 mg PO QHS 11/04/16 Folic Acid [Folvite 1 mg Tablet] 1 g PO DAILY 11/04/16 Furosemide [Lasix] 40 mg PO DAILY 11/04/16 Gabapentin [Neurontin 300 mg Capsule] 300 mg PO Q12 11/04/16 Levalbuterol HCl [Xopenex Neb 1.25 mg/3 ml Ampul] 1 vial NEB Q6 11/04/16 Levothyroxine Sodium [Synthroid 0.15 mg Tablet] 0.15 mg PO QAM 11/04/16 Mag Hydrox/Al Hydrox/Simeth [Maalox Plus Susp 30 Udcup] 30 ml PO Q6HP PRN Multivitamin [Daily Multiple Vitamin] 1 tab PO DAILY 11/04/16 Nicotine [Nicoderm 21 mg/24 Hr Transderm Patch] 1 patch TOP DAILY 11/04/16 Nystatin [Mycostatin Topical Powder 15 gm] 1 applic TOP BID 11/04/16 Potassium Chloride [Klor-Con 10 Meq Tablet.sa] 10 meq PO DAILY 11/04/16 Prednisone [Deltasone 10 mg Tablet] 10 mg PO DAILY 11/04/16 Sildenafil Citrate [Revatio 20 mg Tablet] 20 mg PO MEALS 11/04/16 Thiamine HCl [Thiamine 100 mg Tablet] 100 mg PO DAILY 11/04/16 Warfarin Sodium [Coumadin 2.5 mg Tablet] 2.5 mg PO QHS 11/04/16 Allergies/Adverse Reactions: codeine [Codeine] Adverse Reaction (Mild, Verified 11/04/16 04:23) VOMITING morphine Adverse Reaction (Verified 11/04/16 04:23) oxycodone [From Percocet] Adverse Reaction (Verified 11/04/16 04:23) prednisone Adverse Reaction (Verified 11/04/16 04:23) Review of Systems Constitutional: ABSENT: fever(s), headache(s), night sweats, weakness Eyes: ABSENT: visual disturbances Ears: ABSENT: hearing changes Nose, Mouth, and Throat: ABSENT: sore throat Cardiovascular: PRESENT: orthropnea. ABSENT: chest pain, palpitations Respiratory: PRESENT: dyspnea. ABSENT: hemoptysis Gastrointestinal: PRESENT: melena. ABSENT: diarrhea, dysphagia, hematochezia Genitourinary: ABSENT: dysuria, hematuria Neurological: PRESENT: weakness. ABSENT: syncope, tremor(s), vertigo Endocrine: ABSENT: polydipsia, polyphagia, polyuria Hematologic/Lymphatic: ABSENT: easy bruising Physical Exam Vital Signs: Temp Pulse Resp BP Pulse Ox 97.8 F 60 15 93/53 L 94 11/04/16 06:31 11/04/16 08:43 11/04/16 11:45 11/04/16 11:45 11/04/16 11:45 Intake & Output 11/03/16 11/04/16 11/05/16 06:59 06:59 06:59 Output Total 50 Balance -50 Weight 121.9 kg General appearance: PRESENT: mild distress Head exam: PRESENT: atraumatic, normocephalic Eye exam: PRESENT: EOMI, PERRLA. ABSENT: nystagmus, periorbital swelling, scleral icterus Throat exam: ABSENT: tonsillar exudate, tonsillogmegaly Neck exam: ABSENT: meningismus, tenderness, thyromegaly Respiratory exam: PRESENT: crackles, symmetrical, tachypnea Cardiovascular exam: PRESENT: RRR, +S1, +S2 GI/Abdominal exam: PRESENT: soft, tenderness. ABSENT: ascites, Marinelli's sign, rebound, rigid Extremities exam: ABSENT: joint swelling Musculoskeletal exam: PRESENT: full ROM Neurological exam: PRESENT: oriented to time, oriented to situation, reflexes normal, CN II-XII grossly intact Psychiatric exam: PRESENT: appropriate affect Skin exam: PRESENT: normal color. ABSENT: mottled, pallor, petechiae, urticaria , vesicles Results Laboratory Results: 11/04/16 12:02 11/04/16 06:20 11/03/16 11/04/16 11/04/16 23:35 06:20 06:20 WBC 15.8 H 13.9 H RBC 3.38 L 2.96 L Hgb 10.1 L 9.1 L Hct 31.2 L 28.1 L MCV 92 95 MCH 29.9 30.7 MCHC 32.4 32.3 RDW 17.8 H 18.2 H Plt Count 98 L 101 L Sodium 144.0 Potassium 4.5 Chloride 95 L Carbon Dioxide 42 H* Anion Gap 7 BUN 82 H Creatinine 1.44 H Est GFR ( Amer) 43 L Est GFR (Non-Af Amer) 36 L Glucose 127 H Calcium 7.9 L Urine Color Urine Appearance Urine pH Ur Specific [place] Urine Protein Urine Glucose (UA) Urine Ketones Urine Blood Urine Nitrite Ur Leukocyte Esterase Urine WBC (Auto) Urine RBC (Auto) 11/04/16 11/04/16 11:43 12:02 WBC 14.0 H RBC 2.80 L Hgb 8.4 L Hct 26.6 L MCV 95 MCH 29.9 MCHC 31.5 L RDW 18.4 H Plt Count 101 L Sodium Potassium Chloride Carbon Dioxide Anion Gap BUN Creatinine Est GFR ( Amer) Est GFR (Non-Af Amer) Glucose Calcium Urine Color YELLOW Urine Appearance CLEAR Urine pH 7.0 Ur Specific [place] 1.010 Urine Protein 30 H Urine Glucose (UA) NEGATIVE Urine Ketones NEGATIVE Urine Blood SMALL H Urine Nitrite NEGATIVE Ur Leukocyte Esterase NEGATIVE Urine WBC (Auto) 1 Urine RBC (Auto) 1 Assessment & Plan - Diagnosis (1) Acute upper gastrointestinal bleeding Is this a current diagnosis for this admission?: YesPlan: could be related to PUD will need EGD suspect will be difficult sedation with conscious sedation medication would prefer that patient be closely watched on anesthesia guidance will need to schedule her procedure in the OR Risks, benefits and alternatives are discussed with the patient in detail Further recommendations to follow - Time Time Spent: 50 to 70 Minutes
[2016-11-04] MEDS: NICOTINE 21 MG/24 HR PATCH.TD24 TOP SCH (12:46)
[2016-11-04] MEDS ORDERED: NORMAL SALINE 250 ML IV PRN (13:06)
[2016-11-04 19:24] LABS: HEMATOCRIT 26.1 % (36.0-47.0); HEMOGLOBIN 8.4 g/dL (12.0-15.5); HGB HCT DIFFERENCE -0.9; MEAN CORPUSCULAR HEMOGLOBIN 30.3 pg (27.0-33.4); MEAN CORPUSCULAR HGB CONC 32.2 g/dL (32.0-36.0); MEAN CORPUSCULAR VOLUME 94 fl (80-97); RED BLOOD COUNT 2.77 10^6/uL (3.72-5.28); RED CELL DISTRIBUTION WIDTH 17.6 % (11.5-14.0); WHITE BLOOD COUNT 14.6 10^3/uL (4.0-10.5)
[2016-11-04 19:46] LABS: BAND NEUTROPHILS % (MANUAL) 1 % (3-5); BASOPHILS % (MANUAL) 0 % (0-2); EOSINOPHILS % (MANUAL) 1 % (0-6); LYMPHOCYTES % (MANUAL) 1 % (13-45); TOTAL CELLS COUNTED 100
[2016-11-04 19:48] LABS: ANISOCYTOSIS 1+; HYPOCHROMASIA SLIGHT
[2016-11-04] MEDS ORDERED: LEVOFLOXACIN 500 MG/D5W RTU 500 MG/100 ML RTUPB IV SCH (22:00)
[2016-11-04] MEDS ORDERED: ATORVASTATIN CALCIUM 40 MG TABLET PO SCH (22:00)
[2016-11-04] MEDS: ATORVASTATIN CALCIUM 40 MG TABLET PO SCH (23:14)
[2016-11-05] MEDS: NORMAL SALINE 1000 ML 1,000 ML IV PRN (00:04)
[2016-11-05 01:28] LABS: HEMATOCRIT 28.5 % (36.0-47.0); HEMOGLOBIN 9.5 g/dL (12.0-15.5); MEAN CORPUSCULAR HEMOGLOBIN 30.4 pg (27.0-33.4); MEAN CORPUSCULAR HGB CONC 33.4 g/dL (32.0-36.0); MEAN CORPUSCULAR VOLUME 91 fl (80-97); RED BLOOD COUNT 3.13 10^6/uL (3.72-5.28); RED CELL DISTRIBUTION WIDTH 18.3 % (11.5-14.0)
[2016-11-05] MEDS: IPRATROPIUM BROMIDE 0.02% NEB 0.5 MG/2.5 ML AMPUL NEB SCH ×4 (01:37→20:16)
[2016-11-05] MEDS: LEVALBUTEROL HCL NEB 1.25 MG/3 ML AMPUL NEB SCH ×4 (01:37→20:15)
[2016-11-05] MEDS ORDERED: NORMAL SALINE 1000 ML 1,000 ML IV ONE (01:45)
[2016-11-05 02:12] LABS: BASOPHILS % (MANUAL) 0 % (0-2); EOSINOPHILS % (MANUAL) 1 % (0-6); LYMPHOCYTES % (MANUAL) 12 % (13-45); TOTAL CELLS COUNTED 100
[2016-11-05 02:14] LABS: ANISOCYTOSIS 2+; OVALOCYTES SLIGHT
[2016-11-05] MEDS: NORMAL SALINE 100 ML with PANTOPRAZOLE SODIUM 80 MG IV PRN ×4 (05:15→15:40)
[2016-11-05] MEDS: LEVOTHYROXINE SODIUM 0.15 MG TABLET PO SCH (05:15)
[2016-11-05 07:30] LABS: HEMATOCRIT 26.6 % (36.0-47.0); HEMOGLOBIN 8.7 g/dL (12.0-15.5); HGB HCT DIFFERENCE -0.5; MEAN CORPUSCULAR HGB CONC 32.6 g/dL (32.0-36.0); MEAN CORPUSCULAR VOLUME 92 fl (80-97); RED BLOOD COUNT 2.89 10^6/uL (3.72-5.28); RED CELL DISTRIBUTION WIDTH 18.6 % (11.5-14.0); WHITE BLOOD COUNT 14.9 10^3/uL (4.0-10.5)
[2016-11-05 07:43] LABS: ANION GAP 6 (5-19); BLOOD UREA NITROGEN 92 mg/dL (7-20); CALCIUM 7.7 mg/dL (8.4-10.2); CARBON DIOXIDE 35 mmol/L (22-30); CHLORIDE 101 mmol/L (98-107); CREATININE RESULT 1.52 mg/dL (0.52-1.25); GLUCOSE 91 mg/dL (75-110); POTASSIUM 4.5 mmol/L (3.6-5.0); SODIUM 142.1 mmol/L (137-145)
[2016-11-05] MEDS ORDERED: LEVOTHYROXINE SODIUM 0.15 MG TABLET PO SCH (08:00)
--- NOTE | 2016-11-05 08:04 | PROGRESS NOTE E ---
Progress Note NAME: MARIANO HENRY : 1945 AGE: 71Y DATE: 11/04/2016 ROOM: 319 SUBJECTIVE: I was with the patient from 12:15 p.m. to 1:00 p.m. Overall 45 minutes spent on this patient. The patient is a 72-year-old female with multiple medical problems who states that yesterday, 6 hours prior to coming to the ER, started having abdominal pain and also had melena and coffee-ground emesis. This morning she said she had a small quantity of bright red blood and subsequently had 200 mL of emesis. In the ER because of chronic pain she took Fentanyl and this resulted in hypotension and further reduced respiratory drive and this was corrected with Narcan and IV fluids. At present the patient states that she had abdominal discomfort and nausea. There is no chest pain or discomfort. There is no shortness of breath. There is no PND or orthopnea. She has chronic lymphedema of the leg. The patient has chronic atrial fibrillation and was on anticoagulation with Coumadin for this. She denies taking any nonsteroidal antiinflammatory agents. In the ER, she had Hemoccult and positive labs, leukocytosis and hypercapnia. PAST MEDICAL HISTORY: 1. The patient has chronic atrial fibrillation. 2. She has chronic kidney disease stage 3. 3. She has past history of congestive heart failure. 4. [id number] diastolic heart failure, at present compensated. 5. Past history of DVT. 6. Hyperlipidemia. 7. Hypertension. 8. COPD. 9. Sleep apnea and uses CPAP. 10. Hypothyroidism. 11. Arthritis. 12. She denies any depression or diabetes mellitus. 13. There is no history of hyperthyroidism. In the past she was recently admitted for a gram-negative bacteremia and infection was treated with medications along with antibiotics and improved. She still felt well until about 6 hours prior to her coming to the emergency room when she started developing abdominal pain. PAST SURGICAL HISTORY: Orthopedic surgery and tonsillectomy. SOCIAL HISTORY: The patient is a smoker. There is no history of EtOH abuse. MEDICATIONS: 1. Acetaminophen 650 mg p.o. q.8 h. p.r.n. 2. Aspirin 81 mg p.o. daily. 3. Atenolol 25 mg p.o. daily. 4. Atorvastatin 40 mg p.o. at bedtime. 5. Colace 100 mg p.o. b.i.d. 6. Fentanyl citrate 25 mcg IV x1. 7. Folic acid 1 mg p.o. daily. 8. Lasix 40 mg p.o. daily. 9. Neurontin 300 mg p.o. q.12h. 10. She did receive normal saline 1 bag IV bolus and at present is on normal saline IV continuous 250 mL. 11. Ipratropium bromide 0.5 mg nebulizer treatment q.6 h. 12. Xopenex 1.25 mg nebulizer treatment q.6 h. 13. Levaquin 500 mg IV x1. 14. She is on levothyroxine 0.15 mg p.o. a.m. 15. Magnesium hydroxide/aluminum hydroxide plus suspension 30 mL p.o. q.6 h. p.r.n. 16. Multivitamin 1 tablet p.o. daily. 17. Nicoderm 21 mg per 24 h. 1 patch topically daily. 18. Nystatin 1 application p.o. b.i.d. 19. Sandostatin injection 100 mcg/1 mL, 50 mcg x2 IV. 20. Zofran 4 mg p.o. IV x1. 21. Pantoprazole sodium 80 mg IV continuous. 22. Potassium chloride 10 mEq p.o. daily. 23. Ceftriaxone 1 g IV piggyback x1. 24. Sidenafil citrate 20 mg p.o. with meals. 25. Sucralfate 1 g p.o. x1. 26. Thiamine hydrochloride 100 mg p.o. daily. CODE STATUS: This patient is a FULL CODE. Her friend, Ms. Olivia De La Cruz is her surrogate healthcare power of ip technology transactions attorney. REVIEW OF SYMPTOMS: HEAD: Denies any history of headaches or head injury. EYES: No history of amblyopia or diplopia. No history of amaurosis fugax. EARS: No hearing loss. No recurrent ear infection. No tinnitus. NOSE: No history of hay fever. No history of nasal polyps. No history of nosebleeds. MOUTH: No history of ulcers in the mouth. No history of altered taste sensation. No bleeding from the gums. THROAT: No odynophagia or dysphagia. No recurrent sore throat. SKIN: The patient has venous stasis dermatitis in the leg along with chronic lymphedema. There is no skin cancer or other skin lesions. NECK: Denies any neck pain or painful swelling in the neck. No goiter. LUNGS: History of COPD in a patient who is hypercapnic, most likely secondary to decreased respiratory drive due to Fentanyl. She denies any cough or wheezing at present. There is no history of pulmonary embolism. There is a past history of DVT. The patient also has sleep apnea and uses CPAP. CARDIOVASCULAR: Past history of ofroq-qb-[id number] diastolic heart failure, at present seems to be compensated. There is no history of anginal symptoms. She has chronic atrial fibrillation. She had chronic lymphedema. Denies any palpitations or syncope. GASTROINTESTINAL: History of epigastric pain and GI bleed with melena, hematemesis and also bright red blood as per the patient and the patient's anemic. No history of fatty food intolerance. No history of cirrhosis of the liver. No hepatitis. She had melanotic diarrhea. MUSCULOSKELETAL: History of arthritis of the knees. No vascular disease. RENAL: History of chronic kidney disease stage III. No symptoms of UTI. No history of hematuria, pyuria or dysuria. CENTRAL NERVOUS SYSTEM: No history of TIA or CVA. No history of seizures or headaches or migraines. The patient has weakness in both legs due to cauda equina syndrome. PSYCHIATRIC: No history of anxiety or depression. No history of homicidal or suicidal ideation. HEMATOLOGIC: The patient with anemia due to acute blood loss due to upper GI bleed most likely. More likely the patient has an ulcer. VASCULAR: No history of calf or buttock claudication. History of past DVT. No other events. PHYSICAL EXAMINATION: VITAL SIGNS: Pulse is 71 beats per minute, blood pressure 108/54, she is afebrile. Respirations 18 per minute. O2 sats 95% on 2 L. GENERAL: The patient is morbidly obese, and at present in mild distress due to nausea. HEENT: Head is atraumatic, normocephalic. EYES: Pupils are equal, round, regular, reactive to light and accommodation. Extraocular movements are normal. There is conjunctival pallor. There is no scleral icterus. EARS: Tympanic membranes are intact. External auditory canals are clear. There are no lesions on the pinna. NOSE: There is no deviated nasal septum. There is no inflammation of the nasal mucous membranes. MOUTH: Mucous membranes of the mouth are slightly dry. Tongue is dry. There are no ulcers in the mouth. There is no bleeding from the gums. THROAT: There is no redness of the oropharynx. There are no exudates. SKIN: As mentioned earlier. The patient has chronic venous stasis dermatitis of the lower extremities and also chronic lymphedema. There is no petechiae or ecchymoses. NECK: Supple. There is no JVD. Carotids are equal. There is no bruit. There is no goiter. There is no lymphadenopathy. Trachea is central. LUNGS: Diminished air entry and prolonged expiration without any rhonchi, rales or wheezing. HEART: S1 and S2 are heard. There is no S4 gallop present. There is no S3 gallop. There is a systolic murmur at left sternal border at the apex. There is no rub. ABDOMEN: Soft. There is some epigastric tenderness without rebound or guarding. Bowel sounds are slightly increased. There is hepatosplenomegaly. EXTREMITIES: Femorals are deep. Leg pulses are difficult to palpate due to the chronic lymphedema. There is no femoral bruits. She has chronic lymphedema and venous stasis dermatitis of the lower extremities. CENTRAL NERVOUS SYSTEM: The patient is conscious, awake, alert, oriented x3. She has weakness in both legs, lower extremities, due to cauda equina syndrome. PSYCHIATRIC: The patient does not appear to be anxious or agitated. Her judgement and insight are intact. Her affect is normal. DIAGNOSTIC TEST RESULTS: The patient's EKG shows atrial fibrillation, PVC's, borderline abnormalities anterior leads. The patient's KUB shows nasogastric tube in down and appropriately positioned. The top lies in the distal stomach. There is mild gaseous distention of the left abdominal small bowel loops may reflect ileus or obstruction. Possible left pleural fluid and left lower lobe volume loss/consolidation. This I think has been chronic consolidation . The patient's white count is 14,000, hemoglobin 8.4, hematocrit 26.6, platelet count is 101,000. The patient's chemistry shows a sodium of 144, potassium 4.5, chloride 92, CO2 is 42. The patient's BUN is 82, creatinine is 1.44. GFR is reduced to 36 mL, which is chronic kidney disease stage III. Her glucose is 127. Calcium is 7.9. The patient's pro time is stable at 16.3. INR was 1.06. The patient's gastric occult blood is positive. Stool occult blood is positive. IMPRESSION: 1. GI BLEED, MOST LIKELY UPPER GI BLEED. The patient is going to be scoped tomorrow in the OR since she had a bad reaction to conscious sedation in the past. GI has seen the patient. The patient needs to be carefully monitored while sedated. 2. CHRONIC DIASTOLIC HEART FAILURE, AT PRESENT SEEMS TO BE COMPENSATED. 3. SEVERE PULMONARY HYPERTENSION. The patient's right ventricular systolic pressure was 70 to 76 on admission earlier this month. 4. OBESITY HYPOVENTILATION SYNDROME. 5. OBSTRUCTIVE SLEEP APNEA. 6. HISTORY OF ANTICOAGULATION WITH COUMADIN. This has been stopped secondary to upper GI bleed. 7. CHRONIC ATRIAL FIBRILLATION. 8. CHRONIC KIDNEY DISEASE. 9. COPD, AT PRESENT SEEMS TO BE COMPENSATED. Earlier the patient had to receive Narcan for respiratory depression. 10. CAUDA EQUINA SYNDROME. 11. CHRONIC LYMPHEDEMA AND CHRONIC VENOUS STATUS DERMATITIS OF THE LOWER EXTREMITIES. RECOMMENDATIONS: In view of the GI bleed, agree with holding the Coumadin. Continue her other current medication including medications for COPD, Lasix 40 mg p.o. daily. Continue the atorvastatin. Continue atenolol 25 mg p.o. daily. She is also on furosemide 40 mg p.o. daily and gabapentin, continue these. The patient has also received Sandostatin to stop the GI bleed. She got once dose of Levaquin. Continue her levothyroxine replacement at 0.15 mg p.o. q.6 a.m. Continue pantoprazole. Continue IV fluids and potassium. Watch for volume overload. Note that the patient is a DNR. Her friend, Ms. Olivia De La Cruz is her surrogate healthcare decision maker. We will follow with you. DICTATING PHYSICIAN: THOMAS BLANCA M.D. [id number] MEET#: [id number] ID: [id number] JOB#: [id number] ACCT: [id number] cc: >
[2016-11-05] MEDS ORDERED: NORMAL SALINE 250 ML IV PRN ×2 (08:44)
--- NOTE | 2016-11-05 08:50 | PDOC PROGRESS REPORT ---
Subjective Progress Note for:: 11/05/16 Subjective:: The patient complains of not feeling well. She is upset about the NG tube that is irritating her throat. She is upset about the Torres catheter. She still has upper GI bleed. She has an NG tube to low intermittent suction. She is presently scheduled to be endoscoped in the operating room. Her H&H has dropped by more than a gram overnight most probably both secondary to bleeding and IV fluid bolus because of low blood pressure Physical Exam Vital Signs: Temp Pulse Resp BP Pulse Ox 98.2 F 61 18 89/53 L 94 11/05/16 07:27 11/05/16 07:27 11/05/16 07:27 11/05/16 07:27 11/05/16 07:27 Intake & Output 11/04/16 11/05/16 11/06/16 06:59 06:59 06:59 Intake Total 3821 Output Total 600 Balance 3221 Weight 121.9 kg 126.9 kg General appearance: PRESENT: mild distress Head exam: PRESENT: atraumatic Eye exam: PRESENT: conjunctiva pale Neck exam: ABSENT: carotid bruit Respiratory exam: PRESENT: rhonchi Cardiovascular exam: PRESENT: bradycardia, irregular rhythm Pulses: PRESENT: +1 pedal pulses bilateral GI/Abdominal exam: PRESENT: soft, tenderness. ABSENT: rebound Extremities exam: PRESENT: full ROM Musculoskeletal exam: PRESENT: tenderness Neurological exam: PRESENT: alert, awake Psychiatric exam: PRESENT: anxious Results Laboratory Results: 11/05/16 07:05 11/05/16 07:05 11/04/16 11/04/16 11/04/16 11:43 12:02 19:17 WBC 14.0 H 14.6 H RBC 2.80 L 2.77 L Hgb 8.4 L 8.4 L Hct 26.6 L 26.1 L MCV 95 94 MCH 29.9 30.3 MCHC 31.5 L 32.2 RDW 18.4 H 17.6 H Plt Count 101 L 85 L Seg Neutrophils % Not Reportable Lymphocytes % Not Reportable Monocytes % Not Reportable Eosinophils % Not Reportable Basophils % Not Reportable Absolute Neutrophils Not Reportable Absolute Lymphocytes Not Reportable Absolute Monocytes Not Reportable Absolute Eosinophils Not Reportable Absolute Basophils Not Reportable Sodium Potassium Chloride Carbon Dioxide Anion Gap BUN Creatinine Est GFR ( Amer) Est GFR (Non-Af Amer) Glucose Calcium Urine Color YELLOW Urine Appearance CLEAR Urine pH 7.0 Ur Specific [place] 1.010 Urine Protein 30 H Urine Glucose (UA) NEGATIVE Urine Ketones NEGATIVE Urine Blood SMALL H Urine Nitrite NEGATIVE Ur Leukocyte Esterase NEGATIVE Urine WBC (Auto) 1 Urine RBC (Auto) 1 11/05/16 11/05/16 11/05/16 01:17 07:05 07:05 WBC 15.0 H 14.9 H RBC 3.13 L 2.89 L Hgb 9.5 L 8.7 L Hct 28.5 L 26.6 L MCV 91 92 MCH 30.4 30.0 MCHC 33.4 32.6 RDW 18.3 H 18.6 H Plt Count 79 L 87 L Seg Neutrophils % Not Reportable Lymphocytes % Not Reportable Monocytes % Not Reportable Eosinophils % Not Reportable Basophils % Not Reportable Absolute Neutrophils Not Reportable Absolute Lymphocytes Not Reportable Absolute Monocytes Not Reportable Absolute Eosinophils Not Reportable Absolute Basophils Not Reportable Sodium 142.1 Potassium 4.5 Chloride 101 Carbon Dioxide 35 H Anion Gap 6 BUN 92 H Creatinine 1.52 H Est GFR ( Amer) 41 L Est GFR (Non-Af Amer) 34 L Glucose 91 Calcium 7.7 L Urine Color Urine Appearance Urine pH Ur Specific [place] Urine Protein Urine Glucose (UA) Urine Ketones Urine Blood Urine Nitrite Ur Leukocyte Esterase Urine WBC (Auto) Urine RBC (Auto) Impressions: KUB X-Ray 11/04/16 14:40 IMPRESSION: NG tube in appropriate location. Other findings as above. Assessment & Plan - Diagnosis (1) Acute upper gastrointestinal bleeding Is this a current diagnosis for this admission?: YesPlan: We'll place on nothing by mouth status. We'll stop all anticoagulation. GI consultation and surgical consultation Recheck blood counts (2) Anemia associated with acute blood loss Is this a current diagnosis for this admission?: YesPlan: We'll continue monitoring H&H. We'll consider transfusion (3) Hypotension due to blood loss Is this a current diagnosis for this admission?: YesPlan: We'll transfuse 2 units of packed cells and consider dopamine drip (4) Moderate to severe pulmonary hypertension Is this a current diagnosis for this admission?: YesPlan: Continue current medications (5) Atrial fibrillation Qualifiers: Atrial fibrillation type: chronic Qualified Code(s): I48.2 - Chronic atrial fibrillation Is this a current diagnosis for this admission?: YesPlan: Continue current treatment. Will hold anticoagulation because of acute GI bleed (6) Obesity hypoventilation syndrome Is this a current diagnosis for this admission?: YesPlan: Continue BiPAP (7) Obstructive sleep apnea Is this a current diagnosis for this admission?: YesPlan: Continue BiPAP
[2016-11-05] MEDS ORDERED: NORMAL SALINE 1000 ML 1,000 ML IV PRN (08:51)
[2016-11-05] MEDS: SILDENAFIL CITRATE 20 MG TABLET PO SCH ×2 (09:18→18:56)
[2016-11-05] MEDS: POTASSIUM CHLORIDE 20 MEQ/15 ML UDCUP PO SCH (09:19)
[2016-11-05] MEDS: MULTIVITAMIN TABLET PO SCH (09:19)
[2016-11-05] MEDS: FOLIC ACID 1 MG TABLET PO SCH (09:19)
[2016-11-05] MEDS: ASPIRIN 81 MG TABLET, ENT COATED PO SCH (09:20)
[2016-11-05] MEDS: THIAMINE HCL 100 MG TABLET PO SCH (09:20)
[2016-11-05] MEDS: GABAPENTIN 300 MG CAPSULE PO SCH ×2 (09:20→22:47)
[2016-11-05] MEDS: NICOTINE 21 MG/24 HR PATCH.TD24 TOP SCH (09:23)
[2016-11-05] MEDS: DOCUSATE SODIUM 100 MG CAPSULE PO SCH ×2 (09:23→18:56)
[2016-11-05] MEDS: ATENOLOL 50 MG TABLET PO SCH (09:23)
[2016-11-05] MEDS: DOPAMINE HCL/DEXTROSE 5%-WATER 250 ML IV PRN (11:31)
--- NOTE | 2016-11-05 14:22 | Operative Report ---
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 TISSUE REMOVED OR ALTERED: None. COMPLICATIONS: None. ESTIMATED BLOOD LOSS: none. INTRAOPERATIVE FINDINGS: As described above. No varices. Gastric AVMs that were controlled. No ulcers noted PROCEDURE: Patient tolerated the procedure well. She sent back to her room in good condition. Respiratory status and blood pressure to be addressed. No further active bleeding noted. She currently is on the dopamine drip. Follow H&H. May need ICU. Continue PPI.
[2016-11-05] MEDS ORDERED: ONDANSETRON HCL INJ/PF 4 MG/2 ML SDV IV PRN (14:44)
[2016-11-05] MEDS ORDERED: FENTANYL CITRATE INJ/PF 100 MCG/2 ML AMPUL IV PRN (14:44)
--- NOTE | 2016-11-05 14:54 | Physician Advisory Note ---
Physician Advisor ProgressNote .: Pursuant to the plan for [facility], I have reviewed the medical record for this patient. Physician Advisor Statement: Excellently documented Acute UGIB, likely due to ____, Anemia of Acute Blood Loss due to the GIBleed, mod-sev pulm HTN, obesity hypoventil synd, ... Possible documentation opportunities if attending agrees: 1. "hypovolemic shock due to acute blood loss" [requiring pressor as well as transfusions & IVF] 2. "Acute hypoxemic on Chronic hypercarbic Respiratory Failure" - was there increased work of breathing at any point this stay? Does she usually need O2 @ __L @baseline? 3. " type Afib" [persistent or paroxysmal?] As always, if concerned about any unstable VS or abnormal labs, please comment on them & note what doing about them, & please document each day the potential clinical problems you are concerned could occur if pt not kept in hospital for tx at this time. Thanks for your help with documentation accuracy/specificity improvement! Juli Bates MD [facility] Physician Advisor, Fellow of Hospital Medicine
[2016-11-05] MEDS: FUROSEMIDE 40 MG TABLET PO SCH (18:54)
[2016-11-05] MEDS: NYSTATIN TOPICAL POWDER 15 GM TP SCH ×2 (18:54→18:56)
[2016-11-05] MEDS: ATORVASTATIN CALCIUM 40 MG TABLET PO SCH (22:47)
[2016-11-06] MEDS: NORMAL SALINE 100 ML with PANTOPRAZOLE SODIUM 80 MG IV PRN ×2 (01:58)
[2016-11-06] MEDS: IPRATROPIUM BROMIDE 0.02% NEB 0.5 MG/2.5 ML AMPUL NEB SCH ×4 (02:22→20:32)
[2016-11-06] MEDS: LEVALBUTEROL HCL NEB 1.25 MG/3 ML AMPUL NEB SCH ×4 (02:22→20:32)
[2016-11-06] MEDS: DOPAMINE HCL/DEXTROSE 5%-WATER 250 ML IV PRN (04:52)
[2016-11-06 04:57] LABS: ALANINE AMINOTRANSFERASE 35 U/L (9-52); ALBUMIN 2.6 g/dL (3.5-5.0); ALKALINE PHOSPHATASE 74 U/L (38-126); ANION GAP 10 (5-19); ASPARTATE AMINO TRANSFERASE 18 U/L (14-36); BILIRUBIN,DIRECT 0.6 mg/dL (0.0-0.4); BLOOD UREA NITROGEN 96 mg/dL (7-20); CALCIUM 8.3 mg/dL (8.4-10.2); CARBON DIOXIDE 32 mmol/L (22-30); CHLORIDE 102 mmol/L (98-107); CREATININE RESULT 1.53 mg/dL (0.52-1.25); GLUCOSE 116 mg/dL (75-110); POTASSIUM 4.2 mmol/L (3.6-5.0); SODIUM 144.2 mmol/L (137-145)
[2016-11-06] MEDS ORDERED: NORMAL SALINE 250 ML IV ONE (05:00)
[2016-11-06] MEDS: LEVOTHYROXINE SODIUM 0.15 MG TABLET PO SCH (06:30)
[2016-11-06 08:17] LABS: ABSOLUTE BASOPHILS # (AUTO) 0.1 10^3/uL (0.0-0.2); ABSOLUTE EOSINOPHILS # (AUTO) 0.3 10^3/uL (0.0-0.6); ABSOLUTE LYMPHOCYTES (AUTO) 0.8 10^3/uL (0.5-4.7); ABSOLUTE MONOCYTES (AUTO) 0.7 10^3/uL (0.1-1.4); ABSOLUTE NEUT (AUTO) 12.8 10^3/uL (1.7-8.2); BASOPHILS % (AUTO) 0.6 % (0-2); HEMATOCRIT 33.1 % (36.0-47.0); HEMOGLOBIN 10.6 g/dL (12.0-15.5); HGB HCT DIFFERENCE -1.3; LYMPHOCYTES % (AUTO) 5.7 % (13-45); MEAN CORPUSCULAR HEMOGLOBIN 29.8 pg (27.0-33.4); MEAN CORPUSCULAR HGB CONC 32.1 g/dL (32.0-36.0); MEAN CORPUSCULAR VOLUME 93 fl (80-97); MONOCYTES % (AUTO) 4.7 % (3-13); RED BLOOD COUNT 3.56 10^6/uL (3.72-5.28); WHITE BLOOD COUNT 14.7 10^3/uL (4.0-10.5)
[2016-11-06 08:27] LABS: ALANINE AMINOTRANSFERASE 38 U/L (9-52); ALBUMIN 2.6 g/dL (3.5-5.0); ALKALINE PHOSPHATASE 68 U/L (38-126); ANION GAP 12 (5-19); ASPARTATE AMINO TRANSFERASE 17 U/L (14-36); BILIRUBIN,DIRECT 0.4 mg/dL (0.0-0.4); BILIRUBIN,TOTAL 0.8 mg/dL (0.2-1.3); BLOOD UREA NITROGEN 94 mg/dL (7-20); CALCIUM 8.3 mg/dL (8.4-10.2); CARBON DIOXIDE 30 mmol/L (22-30); CHLORIDE 101 mmol/L (98-107); GLUCOSE 114 mg/dL (75-110); POTASSIUM 4.1 mmol/L (3.6-5.0); SODIUM 143.4 mmol/L (137-145); TOTAL PROTEIN 4.8 g/dL (6.3-8.2)
--- NOTE | 2016-11-06 08:59 | PDOC PROGRESS REPORT ---
Subjective Progress Note for:: 11/06/16 Subjective:: The patient states to feel better. She denies any abdominal pain. She had an upper endoscopy which showed AVM which were cauterized. Her blood pressure is still low. She is still on BiPAP. Physical Exam Vital Signs: Temp Pulse Resp BP Pulse Ox 98.7 F 72 19 95/47 L 88 L 11/06/16 07:45 11/06/16 07:45 11/06/16 07:45 11/06/16 07:45 11/06/16 07:45 Intake & Output 11/05/16 11/06/16 11/07/16 06:59 06:59 06:59 Intake Total 3821 7598 Output Total 600 1620 Balance 3221 5978 Weight 126.9 kg 134.6 kg General appearance: PRESENT: mild distress Head exam: PRESENT: atraumatic Eye exam: PRESENT: conjunctiva pink Neck exam: ABSENT: carotid bruit Respiratory exam: PRESENT: crackles Cardiovascular exam: PRESENT: bradycardia Pulses: PRESENT: normal carotid pulses, +1 pedal pulses bilateral Vascular exam: PRESENT: normal capillary refill GI/Abdominal exam: PRESENT: soft Extremities exam: PRESENT: tenderness Neurological exam: PRESENT: alert, awake Results Laboratory Results: 11/06/16 07:33 11/06/16 11/06/16 03:56 07:33 Sodium 144.2 143.4 Potassium 4.2 4.1 Chloride 102 101 Carbon Dioxide 32 H 30 Anion Gap 10 12 BUN 96 H 94 H Creatinine 1.53 H 1.50 H Est GFR ( Amer) 40 L 41 L Est GFR (Non-Af Amer) 33 L 34 L Glucose 116 H 114 H Calcium 8.3 L 8.3 L Total Bilirubin 1.0 0.8 AST 18 17 ALT 35 38 Alkaline Phosphatase 74 68 Total Protein 5.0 L 4.8 L Albumin 2.6 L 2.6 L Impressions: KUB X-Ray 11/04/16 14:40 IMPRESSION: NG tube in appropriate location. Other findings as above. Assessment & Plan - Diagnosis (1) Acute upper gastrointestinal bleeding Is this a current diagnosis for this admission?: YesPlan: Status post EGD. The AVMs were cauterized. No further bleeding (2) Anemia associated with acute blood loss Is this a current diagnosis for this admission?: YesPlan: We'll continue monitoring H&H. We'll consider transfusion (3) Hypotension due to blood loss Is this a current diagnosis for this admission?: YesPlan: We'll transfuse 2 units of packed cells and consider dopamine drip (4) Moderate to severe pulmonary hypertension Is this a current diagnosis for this admission?: YesPlan: Continue current medications (5) Atrial fibrillation Qualifiers: Atrial fibrillation type: chronic Qualified Code(s): I48.2 - Chronic atrial fibrillation Is this a current diagnosis for this admission?: YesPlan: Continue current treatment. Will hold anticoagulation because of acute GI bleed (6) Obesity hypoventilation syndrome Is this a current diagnosis for this admission?: YesPlan: Continue BiPAP (7) Obstructive sleep apnea Is this a current diagnosis for this admission?: YesPlan: Continue BiPAP
--- NOTE | 2016-11-06 09:06 | PDOC PROGRESS REPORT ---
Subjective Progress Note for:: 11/06/16 Subjective:: patient underwent EGD in the OR yesterday per anesthesia, she was at high risk and therefore no sedation was used she was able to tolerate the procedure well her Hgb is stable she does not need to go to ICU for now NGT was discontinued patient had significant amount of bile in her stomach no ulcer was noted several AVM's were cauterized she tolerated well able to resume clears denies any abdominal pain there is no nausea or vomiting Physical Exam Vital Signs: Temp Pulse Resp BP Pulse Ox 98.7 F 72 19 95/47 L 88 L 11/06/16 07:45 11/06/16 07:45 11/06/16 07:45 11/06/16 07:45 11/06/16 07:45 Intake & Output 11/05/16 11/06/16 11/07/16 06:59 06:59 06:59 Intake Total 3821 7598 Output Total 600 1620 Balance 3221 5978 Weight 126.9 kg 134.6 kg General appearance: PRESENT: no acute distress, well-developed, well-nourished Head exam: PRESENT: atraumatic, normocephalic Eye exam: PRESENT: EOMI, PERRLA. ABSENT: nystagmus, periorbital swelling, scleral icterus Mouth exam: PRESENT: moist Throat exam: ABSENT: tonsillar exudate, tonsillogmegaly Neck exam: ABSENT: meningismus, tenderness, thyromegaly Respiratory exam: PRESENT: symmetrical. ABSENT: rhonchi, wheezes Cardiovascular exam: PRESENT: RRR, +S1, +S2 Pulses: PRESENT: normal carotid pulses GI/Abdominal exam: PRESENT: soft. ABSENT: ascites, rebound, rigid Extremities exam: ABSENT: joint swelling Musculoskeletal exam: PRESENT: full ROM Neurological exam: PRESENT: alert, awake, oriented to time, oriented to situation, CN II-XII grossly intact Psychiatric exam: PRESENT: appropriate affect Skin exam: PRESENT: normal color. ABSENT: mottled, pallor, urticaria, vesicles Results Laboratory Results: 11/06/16 07:33 11/06/16 07:33 11/06/16 11/06/16 11/06/16 03:56 07:33 07:33 WBC 14.7 H RBC 3.56 L Hgb 10.6 L Hct 33.1 L MCV 93 MCH 29.8 MCHC 32.1 RDW 18.0 H Plt Count 86 L Seg Neutrophils % 87.0 H Lymphocytes % 5.7 L Monocytes % 4.7 Eosinophils % 2.0 Basophils % 0.6 Absolute Neutrophils 12.8 H Absolute Lymphocytes 0.8 Absolute Monocytes 0.7 Absolute Eosinophils 0.3 Absolute Basophils 0.1 Sodium 144.2 143.4 Potassium 4.2 4.1 Chloride 102 101 Carbon Dioxide 32 H 30 Anion Gap 10 12 BUN 96 H 94 H Creatinine 1.53 H 1.50 H Est GFR ( Amer) 40 L 41 L Est GFR (Non-Af Amer) 33 L 34 L Glucose 116 H 114 H Calcium 8.3 L 8.3 L Total Bilirubin 1.0 0.8 AST 18 17 ALT 35 38 Alkaline Phosphatase 74 68 Total Protein 5.0 L 4.8 L Albumin 2.6 L 2.6 L Impressions: KUB X-Ray 11/04/16 14:40 IMPRESSION: NG tube in appropriate location. Other findings as above. Assessment & Plan - Diagnosis (1) Acute upper gastrointestinal bleeding Is this a current diagnosis for this admission?: YesPlan: AVM's noted and cauterized patient stable patient has improved with no further abdominal pain will monitor H/H PPI for now respiratory status needs to be tuned up will follow along - Time Time Spent with patient: 15-24 minutes
--- NOTE | 2016-11-06 09:57 | PROGRESS NOTE E ---
Progress Note NAME: MARIANO HENRY : 1945 AGE: 71Y DATE: 11/05/2016 ROOM: 319 I saw the patient from 8:00 a.m. to 8:30 a.m. LABORATORY: Note that the patient's white count is 14,900; hemoglobin has dropped to 8.7; hematocrit is 266 and the platelet count is 87,000. The patient's sodium is 142.1, potassium is 4.5, chloride 101, CO2 is 35. The patient's BUN is 92, creatinine is 1.52. GFR is reduced to 35 mL which is chronic kidney disease stage 3. The patient's glucose is 91, calcium is 7.1. IMPRESSION: 1. HYPOTENSION. Will start the patient on dopamine since the patient may not tolerate the fluid overload. Also, the patient needs to go to OR to have a EGD. 2. GI BLEED MOST LIKELY UPPER GI BLEED. The patient is going to be scoped later on today. 3. ANEMIA SECONDARY TO ACUTE BLOOD LOSS. Note that the patient had received 2 units of blood yesterday. She also will get some more blood today in the form of a transfusion. 4. CHRONIC DIASTOLIC HEART FAILURE, AT PRESENT SEEMS TO BE COMPENSATED. 5. SEVERE PULMONARY HYPERTENSION. The patient's right ventricular systolic pressure was 70 to 76 on admission earlier this month. 6. OBESITY HYPOVENTILATION SYNDROME. 7. OBSTRUCTIVE SLEEP APNEA. Continue BiPAP. 8. HISTORY OF ANTICOAGULATION WITH COUMADIN. This has been stopped due to GI bleed. 9. CHRONIC ATRIAL FIBRILLATION. RATE SEEMS TO BE WELL CONTROLLED ON CURRENT MEDICATION. 10. CHRONIC KIDNEY DISEASE STAGE 3. 11. COPD, AT PRESENT SEEMS TO BE COMPENSATED. Earlier the patient had received Narcan yesterday but at present she seems to be breathing okay in spite of her blood pressure being low. She is well mentating. 12. CHRONIC LYMPHEDEMA AND CHRONIC VENOUS STATUS DERMATITIS OF THE LOWER EXTREMITIES. RECOMMENDATIONS: Note that the patient continues receiving blood. Will start the patient on dopamine and initiate 2.5 mg/kg per minute and increase it as needed. Would like to get the blood pressure closer at or above 100. Note 30 minutes spent on this patient with more than 50% of the time spent on direct patient care and also adjusting the patient's medication, starting the patient on pressors and discussions with Dr. Álvarez, the attending physician. The patient will also be getting blood, continue other medications. Hold Coumadin until we the patient has the endoscopy. Note that the patient is a DNR. Her friend, Ms. Olivia De La Cruz, is her surrogate healthcare decision maker. All the medications have been reviewed currently. Will keep a close watch on the patient's blood pressure. DICTATING PHYSICIAN: THOMAS BLANCA M.D. [id number] PHY#: [id number] ID: [id number] JOB#: [id number] ACCT: [id number] cc: >
--- NOTE | 2016-11-06 10:04 | PROGRESS NOTE E ---
Progress Note NAME: MARIANO HENRY : 1945 AGE: 71Y DATE: 11/05/2016 ROOM: 319 SUBJECTIVE: The patient was seen between 8:00 a.m. and 8:30 a.m., a total of 30 minutes. The patient denies any chest pain or discomfort. There is no shortness of breath. There is no PND or orthopnea. There is no increase in the lymphedema. The patient continues to be in atrial fibrillation, but with a controlled ventricular response. Note she is slightly nauseous, but no further vomiting. Abdominal pain is much improved. She is for EGD later today in the OR by Dr. Batista. OBJECTIVE: The patient is morbidly obese, in no acute distress. Blood pressure dropped to 79 systolic and subsequently 89/53. Respirations are 16 per minute. O2 sat on 3 liters nasal cannula earlier were 94%. The patient is slightly drowsy but in no major distress. Head is atraumatic/normocephalic. Eyes: Pupils equal, round, regular, reactive to light and accommodation. Extraocular movements are normal. There is present. There is no scleral icterus. Ears: Tympanic membranes are intact. External auditory canals are clear. There are no lesions on the pinnae. Nose: There is no deviated nasal septum. There is no inflammation of the nasal mucous membranes. Mouth mucous membranes are slightly dry. Tongue is dry. There are no ulcers in the mouth. There is no . No redness of the oropharynx. There is no exudate. The patient has chronic venous stasis dermatitis of the lower extremities. She also has chronic lymphedema. There is no . Neck is supple. There is no JVD. Carotids are equal. There is no bruit. There is no goiter. There is no lymphedema. Trachea is center. Lungs show diminished air entry and prolonged expiration without any rales or wheezing. S1,S2 heard. There is no S4 gallop. There is no S3 gallop. S4 variable intensity. Systolic murmur in the left sternal border and apex. There is no rub. Abdomen is soft. There is some epigastric discomfort but without rebound, guarding, or rigidity. Bowel sounds are heard. There is no hepatosplenomegaly. Extremities: Femorals are pulses difficult to palpate due to chronic lymphedema. There is no femoral bruit. She has chronic lymphedema and venous stasis dermatitis in the lower extremities. [place]: The patient is conscious, slightly drowsy, but oriented x3. She has weakness in both legs/lower extremities due to cauda equina syndrome. Psychiatric: The patient does not appear to be anxious or agitated. I saw the patient from 8:00 a.m. to 8:30 a.m. LABORATORY: Note that the patient's white count is 14,900; hemoglobin has dropped to 8.7; hematocrit is 266 and the platelet count is 87,000. The patient's sodium is 142.1, potassium is 4.5, chloride 101, CO2 is 35. The patient's BUN is 92, creatinine is 1.52. GFR is reduced to 35 mL which is chronic kidney disease stage 3. The patient's glucose is 91, calcium is 7.1. IMPRESSION: 1. HYPOTENSION. Will start the patient on dopamine since the patient may not tolerate the fluid overload. Also, the patient needs to go to OR to have a EGD. 2. GI BLEED MOST LIKELY UPPER GI BLEED. The patient is going to be scoped later on today. 3. ANEMIA SECONDARY TO ACUTE BLOOD LOSS. Note that the patient had received 2 units of blood yesterday. She also will get some more blood today in the form of a transfusion. 4. CHRONIC DIASTOLIC HEART FAILURE, AT PRESENT SEEMS TO BE COMPENSATED. 5. SEVERE PULMONARY HYPERTENSION. The patient's right ventricular systolic pressure was 70 to 76 on admission earlier this month. 6. OBESITY HYPOVENTILATION SYNDROME. 7. OBSTRUCTIVE SLEEP APNEA. Continue BiPAP. 8. HISTORY OF ANTICOAGULATION WITH COUMADIN. This has been stopped due to GI bleed. 9. CHRONIC ATRIAL FIBRILLATION. RATE SEEMS TO BE WELL CONTROLLED ON CURRENT MEDICATION. 10. CHRONIC KIDNEY DISEASE STAGE 3. 11. COPD, AT PRESENT SEEMS TO BE COMPENSATED. Earlier the patient had received Narcan yesterday but at present she seems to be breathing okay in spite of her blood pressure being low. She is well mentating. 12. CHRONIC LYMPHEDEMA AND CHRONIC VENOUS STATUS DERMATITIS OF THE LOWER EXTREMITIES. RECOMMENDATIONS: Note that the patient continues receiving blood. Will start the patient on dopamine and initiate 2.5 mg/kg per minute and increase it as needed. Would like to get the blood pressure closer at or above 100. Note 30 minutes spent on this patient with more than 50% of the time spent on direct patient care and also adjusting the patient's medication, starting the patient on pressors and discussions with Dr. Álvarez, the attending physician. The patient will also be getting blood, continue other medications. Hold Coumadin until we the patient has the endoscopy. Note that the patient is a DNR. Her friend, Ms. Olivia De La Cruz, is her surrogate healthcare decision maker. All the medications have been reviewed currently. Will keep a close watch on the patient's blood pressure. DICTATING PHYSICIAN: THOMAS BLANCA M.D. [id number] MEET#: [id number] ID: [id number] JOB#: [id number] ACCT: [id number] cc: >
[2016-11-06] MEDS ORDERED: FUROSEMIDE INJ/PF 40 MG/4 ML SDV IV ONE (10:30)
[2016-11-06] MEDS: POTASSIUM CHLORIDE 20 MEQ/15 ML UDCUP PO SCH (10:32)
[2016-11-06] MEDS: THIAMINE HCL 100 MG TABLET PO SCH (10:33)
[2016-11-06] MEDS: DOCUSATE SODIUM 100 MG CAPSULE PO SCH ×2 (10:33→18:03)
[2016-11-06] MEDS: GABAPENTIN 300 MG CAPSULE PO SCH ×2 (10:33→22:41)
[2016-11-06] MEDS: FUROSEMIDE 40 MG TABLET PO SCH (10:33)
[2016-11-06] MEDS: MULTIVITAMIN TABLET PO SCH (10:33)
[2016-11-06] MEDS: ASPIRIN 81 MG TABLET, ENT COATED PO SCH (10:33)
[2016-11-06] MEDS: FOLIC ACID 1 MG TABLET PO SCH (10:33)
[2016-11-06] MEDS: SILDENAFIL CITRATE 20 MG TABLET PO SCH ×3 (10:34→18:02)
[2016-11-06] MEDS: ATENOLOL 50 MG TABLET PO SCH (10:45)
[2016-11-06] MEDS: NYSTATIN TOPICAL POWDER 15 GM TP SCH ×2 (11:02→18:02)
[2016-11-06] MEDS ORDERED: NICOTINE 21 MG/24 HR PATCH.TD24 TOP ONE ×2 (11:30)
--- NOTE | 2016-11-06 13:25 | PDOC PROGRESS REPORT ---
Subjective Progress Note for:: 11/06/16 Subjective:: received call from nursing that patient has continued bleeding had EGD done yesterday with ablation however had to be done unsedated since anesthesia was uncomfortable sedating her would probably need colonoscopy however will need a tertiary institution since patient likely would be able to tolerate unsedated colonoscopy would recommend a bleeding scan first. patient has had 4 units of PRBC transfusion Physical Exam Vital Signs: Temp Pulse Resp BP Pulse Ox 98.3 F 65 20 97/48 L 93 11/06/16 11:24 11/06/16 11:24 11/06/16 11:24 11/06/16 11:24 11/06/16 11:24 Intake & Output 11/05/16 11/06/16 11/07/16 06:59 06:59 06:59 Intake Total 3821 7598 680 Output Total 600 1620 300 Balance 3221 5978 380 Weight 126.9 kg 134.6 kg General appearance: PRESENT: cooperative, well-developed, well-nourished Head exam: PRESENT: atraumatic Eye exam: PRESENT: EOMI. ABSENT: scleral icterus Neck exam: ABSENT: tenderness, thyromegaly Respiratory exam: PRESENT: crackles, symmetrical Cardiovascular exam: PRESENT: RRR, +S1, +S2 GI/Abdominal exam: PRESENT: soft. ABSENT: rebound, rigid, tenderness Extremities exam: ABSENT: joint swelling Neurological exam: PRESENT: alert, awake, CN II-XII grossly intact Skin exam: PRESENT: normal color. ABSENT: mottled Results Laboratory Results: 11/06/16 07:33 11/06/16 07:33 11/06/16 11/06/16 11/06/16 03:56 07:33 07:33 WBC 14.7 H RBC 3.56 L Hgb 10.6 L Hct 33.1 L MCV 93 MCH 29.8 MCHC 32.1 RDW 18.0 H Plt Count 86 L Seg Neutrophils % 87.0 H Lymphocytes % 5.7 L Monocytes % 4.7 Eosinophils % 2.0 Basophils % 0.6 Absolute Neutrophils 12.8 H Absolute Lymphocytes 0.8 Absolute Monocytes 0.7 Absolute Eosinophils 0.3 Absolute Basophils 0.1 Sodium 144.2 143.4 Potassium 4.2 4.1 Chloride 102 101 Carbon Dioxide 32 H 30 Anion Gap 10 12 BUN 96 H 94 H Creatinine 1.53 H 1.50 H Est GFR ( Amer) 40 L 41 L Est GFR (Non-Af Amer) 33 L 34 L Glucose 116 H 114 H Calcium 8.3 L 8.3 L Total Bilirubin 1.0 0.8 AST 18 17 ALT 35 38 Alkaline Phosphatase 74 68 Total Protein 5.0 L 4.8 L Albumin 2.6 L 2.6 L Impressions: KUB X-Ray 11/04/16 14:40 IMPRESSION: NG tube in appropriate location. Other findings as above. Assessment & Plan - Diagnosis (1) Acute upper gastrointestinal bleeding Is this a current diagnosis for this admission?: YesPlan: continued GI bleeding recommend bleeding scan will need to isolate site probably will need colonoscopy however transfer to tertiary institutions would be appropriate to see if she can safely sedated Anesthesia is uncomfortable to sedate patient due to multiple comorbidities she would not be able to tolerate an unsedated colonoscopy - Time Time Spent with patient: 15-24 minutes
[2016-11-06] MEDS ORDERED: LANSOPRAZOLE 30 MG TAB.RAP.DR PO ONE (14:00)
[2016-11-06 14:16] LABS: HEMATOCRIT 32.4 % (36.0-47.0); HEMOGLOBIN 10.5 g/dL (12.0-15.5); HGB HCT DIFFERENCE -0.9; MEAN CORPUSCULAR HEMOGLOBIN 29.9 pg (27.0-33.4); MEAN CORPUSCULAR HGB CONC 32.4 g/dL (32.0-36.0); MEAN CORPUSCULAR VOLUME 92 fl (80-97); RED BLOOD COUNT 3.51 10^6/uL (3.72-5.28); WHITE BLOOD COUNT 16.1 10^3/uL (4.0-10.5)
[2016-11-06 14:59] LABS: ANISOCYTOSIS 1+; BASOPHILS % (MANUAL) 0 % (0-2); EOSINOPHILS % (MANUAL) 0 % (0-6); LYMPHOCYTES % (MANUAL) 1 % (13-45); POLYCHROMASIA SLIGHT; TOTAL CELLS COUNTED 100
[2016-11-06 16:47] LABS: ARTERIAL BLOOD BASE EXCESS 2.9 mmol/L; ARTERIAL BLOOD O2 SATURATION 96.8 % (94-98)
--- NOTE | 2016-11-06 21:29 | PROGRESS NOTE E ---
Progress Note NAME: MARIANO HENRY : 1945 AGE: 71Y DATE: 11/06/2016 ROOM: 319 SUBJECTIVE: The patient was seen from 12:10 p.m. to 12:40 p.m., total of 30 minutes spent. The patient is still requiring dopamine at 4 mcg/kg per minute to keep the blood pressure in the high 90's. She denies any chest pain or discomfort. There is no PND or orthopnea. There is no increase in lymphedema. The patient continues to be in atrial fibrillation with controlled ventricular response. There is no chest pain or discomfort. There is no further bleeding. There is no abdominal pain. There is no TIA or CVA symptoms. OBJECTIVE: VITAL SIGNS: Pulse of 83 beats/minute and irregularly irregular, blood pressure is 97/48 on 5 mcg/kg per minute of dopamine, O2 sats are 93% on 3L nasal cannula. GENERAL: The patient is morbidly obese, but in no acute distress. She is afebrile. HEENT: Normocephalic, atraumatic. Pupils are equal, round, regular and reactive to light and accommodation. Extraocular movements are normal. There is no conjunctival pallor. There is no scleral icterus. Tympanic membranes are intact. External auditory canals are clear. *------* The rest of the ENT is negative. NECK: Supple. There is no JVD. Carotids are equal. There is no bruit. Trachea is central. There is no goiter. There is lymphadenopathy. LUNGS: Diminished air entry and prolonged expiration without any rales, rhonchi or wheezing. HEART: S1 and S2 is heard. There is no S3 gallop. There is no S4 gallop. S1 is variable in intensity. There is systolic murmur at the left sternal border of the apex. There is no rub. ABDOMEN: Soft, obese. There is no epigastric discomfort today on palpation. There is no rebound, rigidity or guarding. There is no hepatosplenomegaly. Bowel sounds are well heard. EXTREMITIES: Femorals are diminished. There are no femoral bruits. Leg pulses are difficult to palpate due to chronic lymphedema. There is no femoral bruits. She has chronic lymphedema and venous stasis dermatitis in the lower extremities, which is not increased. CENTRAL NERVOUS SYSTEM: The patient is conscious, awake, alert and oriented x3 with bilateral leg/lower extremity weakness due to cauda equina syndrome. PSYCHIATRIC: The patient does not appear to be anxious or depressed. LABORATORY DATA: The patient's white count is 14,700, hemoglobin has come up to 10.6, hematocrit is 33.1, platelet count is 86,000. The patient's sodium is 143.4, potassium 4.1, chloride 101, CO2 is 30. The patient's BUN is 94, creatinine is 1.54. GFR is 34 mL, which is chronic kidney disease stage 3. The patient's albumin is 2.6, total protein is 4.8. Liver function tests were normal. Her calcium is low at 8.3. The patient's 24 hour intake is 7598 mL and output is 1620 mL. IMPRESSION: 1. HYPOTENSION, ASYMPTOMATIC BUT STILL REQUIRING DOPAMINE AT 5 MCG/KG PER MINUTE, HENCE WE WILL CONTINUE THIS. 2. GI BLEED SECONDARY TO GASTRIC AV MALFORMATIONS, WHICH HAS BEEN CAUTERIZED. THERE IS NO FURTHER BLEEDING. 3. ANEMIA SECONDARY TO ACUTE BLOOD LOSS. The patient's hemoglobin is much improved after transfusion. 4. CHRONIC DIASTOLIC HEART FAILURE AT PRESENT SEEMS TO BE COMPENSATED. 5. SEVERE PULMONARY HYPERTENSION. THE PATIENT'S RIGHT VENTRICULAR SYSTOLIC PRESSURE WAS 70 TO 76 MMHG ON ADMISSION EARLIER THIS MONTH. 6. OBESITY HYPOVENTILATION SYNDROME. 7. OBSTRUCTIVE SLEEP APNEA, CONTINUE BIPAP. 8. HISTORY OF ANTICOAGULATION WITH COUMADIN. This had been stopped due to GI bleed. 10. CHRONIC ATRIAL FIBRILLATION, RATE CONTROLLED AT PRESENT WITH CURRENT MEDICATIONS. 11. CHRONIC KIDNEY DISEASE, STAGE III, SEEMS TO BE STABLE BUT WOULD RECOMMEND DECREASING THE PATIENT'S IV FLUIDS SINCE THE PATIENT HAS RECEIVED IN EXCESSIVE OF 7L. Her output has been only about 1.6L. 12. COPD, AT PRESENT SEEMS TO BE COMPENSATED. 13. CHRONIC LYMPHEDEMA AND CHRONIC VENOUS STASIS DERMATITIS OF THE LOWER EXTREMITIES. RECOMMENDATIONS: The patient's dopamine was increased yesterday to 5 mg/kg per minute, which the patient is tolerating, but in view of the chronic kidney disease would hate to start the patient midodrine. Continue her current medications. Coumadin is on hold. Discussed with attending physician, discussed with the patient and the patient's healthcare power of staff attorney. Note 30 minutes spent on this patient with more than 50% of time spent on direct patient care. This is highly complicated in view of the multiple comorbidities. The patient is still requiring pressors to keep up blood pressures in the high 90's range. Her medications were reviewed and the case was discussed with the attending physician. Would recommend decreasing the patient's IV fluids. We will discuss with GI if it is safe to start the patient on chronic anticoagulation since the *------* have been cauterized and there are no further signs of bleeding. Note that this is a highly complex case in view of the patient's hypotension and multiple comorbidities. We will follow with you. Thirty minutes spent on this patient with more 50% of the time spent on direct patient care. DICTATING PHYSICIAN: THOMAS BLANCA M.D. [id number] MEET#: [id number] ID: [id number] JOB#: [id number] ACCT: [id number] cc: >
[2016-11-06] MEDS: ATORVASTATIN CALCIUM 40 MG TABLET PO SCH (22:41)
[2016-11-07] MEDS: IPRATROPIUM BROMIDE 0.02% NEB 0.5 MG/2.5 ML AMPUL NEB SCH ×4 (02:00→20:21)
[2016-11-07] MEDS: LEVALBUTEROL HCL NEB 1.25 MG/3 ML AMPUL NEB SCH ×4 (02:00→20:21)
[2016-11-07] MEDS: LEVOTHYROXINE SODIUM 0.15 MG TABLET PO SCH (05:29)
[2016-11-07] MEDS: LANSOPRAZOLE 30 MG TAB.RAP.DR PO SCH (05:29)
[2016-11-07] MEDS: DOPAMINE HCL/DEXTROSE 5%-WATER 250 ML IV PRN (05:37)
[2016-11-07 06:23] LABS: HEMOGLOBIN 9.7 g/dL (12.0-15.5); HGB HCT DIFFERENCE -0.9; MEAN CORPUSCULAR HEMOGLOBIN 29.8 pg (27.0-33.4); MEAN CORPUSCULAR HGB CONC 32.2 g/dL (32.0-36.0); MEAN CORPUSCULAR VOLUME 92 fl (80-97); RED BLOOD COUNT 3.25 10^6/uL (3.72-5.28); RED CELL DISTRIBUTION WIDTH 17.8 % (11.5-14.0); WHITE BLOOD COUNT 12.3 10^3/uL (4.0-10.5)
[2016-11-07 06:49] LABS: ANISOCYTOSIS 1+; BAND NEUTROPHILS % (MANUAL) 2 % (3-5); BASOPHILS % (MANUAL) 1 % (0-2); EOSINOPHILS % (MANUAL) 5 % (0-6); LYMPHOCYTES % (MANUAL) 6 % (13-45); OVALOCYTES SLIGHT; POIKILOCYTOSIS SLIGHT; POLYCHROMASIA SLIGHT; TOTAL CELLS COUNTED 100; TOXIC GRANULATION SLIGHT; TOXIC VACUOLATION PRESENT
[2016-11-07 06:50] LABS: ALANINE AMINOTRANSFERASE 35 U/L (9-52); ALBUMIN 2.5 g/dL (3.5-5.0); ALKALINE PHOSPHATASE 63 U/L (38-126); ANION GAP 8 (5-19); ASPARTATE AMINO TRANSFERASE 18 U/L (14-36); BILIRUBIN,DIRECT 0.5 mg/dL (0.0-0.4); BILIRUBIN,TOTAL 0.8 mg/dL (0.2-1.3); BLOOD UREA NITROGEN 94 mg/dL (7-20); CALCIUM 8.6 mg/dL (8.4-10.2); CARBON DIOXIDE 33 mmol/L (22-30); CHLORIDE 103 mmol/L (98-107); CREATININE RESULT 1.67 mg/dL (0.52-1.25); GLUCOSE 88 mg/dL (75-110); MAGNESIUM 2.5 mg/dL (1.6-2.3); SODIUM 144.2 mmol/L (137-145); TOTAL PROTEIN 5.1 g/dL (6.3-8.2)
[2016-11-07 07:28] LABS: POTASSIUM 3.8 mmol/L (3.6-5.0)
[2016-11-07] MEDS: MULTIVITAMIN TABLET PO SCH (09:10)
[2016-11-07] MEDS: SILDENAFIL CITRATE 20 MG TABLET PO SCH ×3 (09:10→17:05)
[2016-11-07] MEDS: POTASSIUM CHLORIDE 20 MEQ/15 ML UDCUP PO SCH (09:10)
[2016-11-07] MEDS: THIAMINE HCL 100 MG TABLET PO SCH (09:11)
[2016-11-07] MEDS: FOLIC ACID 1 MG TABLET PO SCH (09:11)
[2016-11-07] MEDS: ASPIRIN 81 MG TABLET, ENT COATED PO SCH (09:11)
[2016-11-07] MEDS: GABAPENTIN 300 MG CAPSULE PO SCH ×2 (09:11→23:39)
[2016-11-07] MEDS: NYSTATIN TOPICAL POWDER 15 GM TP SCH ×2 (09:11→17:05)
[2016-11-07] MEDS: NICOTINE 21 MG/24 HR PATCH.TD24 TOP SCH (09:13)
[2016-11-07] MEDS: FUROSEMIDE 40 MG TABLET PO SCH (09:13)
[2016-11-07] MEDS: DOCUSATE SODIUM 100 MG CAPSULE PO SCH ×2 (09:13→17:05)
[2016-11-07] MEDS: ATENOLOL 50 MG TABLET PO SCH (09:13)
--- NOTE | 2016-11-07 10:29 | PDOC PROGRESS REPORT ---
Subjective Progress Note for:: 11/07/16 Subjective:: Patient has had some more melanotic stool however her hemoglobin has remained stable. She had an episode of hypoxia yesterday evening. Patient is on BiPAP and denies complaints. Physical Exam Vital Signs: Temp Pulse Resp BP Pulse Ox 98.1 F 71 15 105/58 L 95 11/07/16 07:47 11/07/16 07:47 11/07/16 07:47 11/07/16 07:47 11/07/16 07:47 Intake & Output 11/06/16 11/07/16 11/08/16 06:59 06:59 06:59 Intake Total 7598 1759 Output Total 1620 1150 Balance 5978 609 Weight 134.6 kg 131.6 kg General appearance: PRESENT: no acute distress Eye exam: PRESENT: conjunctiva pink. ABSENT: scleral icterus Ear exam: PRESENT: normal external ear exam Mouth exam: PRESENT: moist, tongue midline Neck exam: ABSENT: JVD Respiratory exam: PRESENT: clear to auscultation flory. ABSENT: rales, rhonchi, wheezes Cardiovascular exam: PRESENT: RRR. ABSENT: diastolic murmur, rubs, systolic murmur GI/Abdominal exam: PRESENT: normal bowel sounds, soft. ABSENT: distended, guarding, mass, organolmegaly, rebound, tenderness Extremities exam: ABSENT: calf tenderness, clubbing, pedal edema Neurological exam: PRESENT: alert, awake, oriented to person, oriented to place , oriented to time, oriented to situation Psychiatric exam: PRESENT: appropriate affect Skin exam: PRESENT: dry, intact, warm. ABSENT: cyanosis, rash Results Laboratory Results: 11/07/16 05:14 11/07/16 05:14 11/06/16 11/06/16 11/07/16 13:32 16:30 05:14 WBC 16.1 H 12.3 H RBC 3.51 L 3.25 L Hgb 10.5 L 9.7 L Hct 32.4 L 30.0 L MCV 92 92 MCH 29.9 29.8 MCHC 32.4 32.2 RDW 18.0 H 17.8 H Plt Count 80 L 80 L Seg Neutrophils % Not Reportable Not Reportable Lymphocytes % Not Reportable Not Reportable Monocytes % Not Reportable Not Reportable Eosinophils % Not Reportable Not Reportable Basophils % Not Reportable Not Reportable Absolute Neutrophils Not Reportable Not Reportable Absolute Lymphocytes Not Reportable Not Reportable Absolute Monocytes Not Reportable Not Reportable Absolute Eosinophils Not Reportable Not Reportable Absolute Basophils Not Reportable Not Reportable Carbonic Acid 2.16 H HCO3/H2CO3 Ratio 14:1 ABG pH 7.26 L ABG pCO2 71.8 H* ABG pO2 105.9 H ABG HCO3 31.1 H ABG O2 Saturation 96.8 ABG Base Excess 2.9 FiO2 70% Sodium Potassium Chloride Carbon Dioxide Anion Gap BUN Creatinine Est GFR ( Amer) Est GFR (Non-Af Amer) Glucose Calcium Magnesium Total Bilirubin AST ALT Alkaline Phosphatase Total Protein Albumin 11/07/16 05:14 WBC RBC Hgb Hct MCV MCH MCHC RDW Plt Count Seg Neutrophils % Lymphocytes % Monocytes % Eosinophils % Basophils % Absolute Neutrophils Absolute Lymphocytes Absolute Monocytes Absolute Eosinophils Absolute Basophils Carbonic Acid HCO3/H2CO3 Ratio ABG pH ABG pCO2 ABG pO2 ABG HCO3 ABG O2 Saturation ABG Base Excess FiO2 Sodium 144.2 Potassium 3.8 Chloride 103 Carbon Dioxide 33 H Anion Gap 8 BUN 94 H Creatinine 1.67 H Est GFR ( Amer) 37 L Est GFR (Non-Af Amer) 30 L Glucose 88 Calcium 8.6 Magnesium 2.5 H Total Bilirubin 0.8 AST 18 ALT 35 Alkaline Phosphatase 63 Total Protein 5.1 L Albumin 2.5 L Impressions: KUB X-Ray 11/04/16 14:40 IMPRESSION: NG tube in appropriate location. Other findings as above. Assessment & Plan - Diagnosis (1) Acute upper gastrointestinal bleeding Is this a current diagnosis for this admission?: YesPlan: Patient had an AVM and had cautery yesterday. The patient still continues to have some melanotic stool but her hemoglobin remained stable. Was going to get a bleeding scan yesterday however her respiratory status was tenuous and will hold off on getting a bleeding scan unless her hemoglobin continues to decrease. (2) Anemia associated with acute blood loss Is this a current diagnosis for this admission?: YesPlan: We'll monitor and transfuse as needed. (3) Hypotension due to blood loss Is this a current diagnosis for this admission?: YesPlan: Patient is on 5 g of dopamine. (4) Acute and chronic respiratory failure with hypercapnia Is this a current diagnosis for this admission?: YesPlan: We'll continue with the BiPAP. (5) COPD (chronic obstructive pulmonary disease) Is this a current diagnosis for this admission?: YesPlan: Continue with BiPAP as needed (6) Hypothyroid Is this a current diagnosis for this admission?: YesPlan: Continue with the Synthroid. (7) Moderate to severe pulmonary hypertension Is this a current diagnosis for this admission?: YesPlan: Patient is on Viagra however the patient is having problems with low blood pressures. (8) Atrial fibrillation Qualifiers: Atrial fibrillation type: chronic Qualified Code(s): I48.2 - Chronic atrial fibrillation Is this a current diagnosis for this admission?: YesPlan: Patient is currently rate control. (9) Thrombocytopenia Is this a current diagnosis for this admission?: YesPlan: Platelets have remained stable but low. - Time Time Spent with patient: 25-34 minutes - Inpatient Certification Medical Necessity: Need Close Monitoring Due to Risk of Patient Decompensation
[2016-11-07] MEDS ORDERED: MIDODRINE HCL 5 MG TABLET PO ONE (11:00)
[2016-11-07] MEDS: MIDODRINE HCL 5 MG TABLET PO SCH (17:05)
[2016-11-07 18:03] LABS: ARTERIAL BLOOD BASE EXCESS 2.8 mmol/L; ARTERIAL BLOOD O2 SATURATION 94.7 % (94-98)
[2016-11-07] MEDS: ATORVASTATIN CALCIUM 40 MG TABLET PO SCH (23:39)
--- NOTE | 2016-11-07 23:58 | PROGRESS NOTE E ---
Progress Note NAME: MARIANO HENRY : 1945 AGE: 71Y DATE: 11/07/2016 ROOM: 319 SUBJECTIVE: Note that the patient was seen from 10 to 10:50 a.m. Note discussion made with her drawing in machine tender to get his opinion on starting the patient on Midodrine. The patient denies any chest pain or discomfort. There is no shortness of breath. There is no PND, orthopnea. The lymphedema has not increased. The patient continues to be in atrial fibrillation controlled ventricular response. At times the nurse says that the patient is asymptomatic and transiently her pulse rate goes to 40, in spite of 5 mcg/kg per minute of dopamine. Still the blood pressure sometimes is in the 90s. At present it is 105. There are no TIA or CVA symptoms. The patient has some melanotic stools but no abdominal pain. There is no nausea or vomiting. OBJECTIVE: GENERAL: The patient is morbidly obese at present. VITAL SIGNS: Earlier this morning her temperature was 98.15 degrees Fahrenheit, pulse was 78 beats per minute, blood pressure 105/58. At present the nurse states her blood pressure is in the low 90s, respirations are 15, O2 saturations are 95% on BiPAP with an FiO2 of 90%. HEENT: Head is atraumatic, normocephalic. Pupils are equal, round and regular, reactive to light and accommodation. Extraocular movements are normal. There is no conjunctival pallor. There is no scleral icterus. Ears: Tympanic membranes are intact. External auditory canals are clear. The rest of the ENT is negative. NECK: Supple. There is no JVD. Carotids are equal. There is no bruit. Trachea is central. There is no goiter. There is lymphadenopathy. LUNGS: Show diminished air entry and prolonged expiration without any rales, rhonchi, or wheezing. There is hyperresonance on percussion. HEART: S1 and S2 is heard. There is no S3 gallop. There is no S4 gallop. S1 is of variable intensity. There is systolic murmur at the left sternal border and the apex. There is no rub. ABDOMEN: Soft, obese. There is no epigastric discomfort. There is no rebound, rigidity, or guarding. There is no hepatosplenomegaly. Bowel sounds are well heard. EXTREMITIES: Femorals are diminished. There are no femoral bruits. Leg pulses are difficult to palpate due to chronic lymphedema. There is no increase in the chronic lymphedema. There is venous stasis dermatitis. CENTRAL NERVOUS SYSTEM: The patient is conscious, awake, alert, and oriented x3 with bilateral leg/lower extremity weakness due to cauda equina syndrome. PSYCHIATRIC: The patient does not appear to be anxious or depressed. INTAKE/OUTPUT: The patient's 24 hour intake is 1759 mL, output is 1150 mL. LABORATORY DATA: The patient's white count is 12,300; hemoglobin 9.7; hematocrit is 30. The patient's platelet count is 80,000. The patient's sodium is 144.2, potassium 3.8, chloride 103, CO2 is 33. The patient's BUN is 94, creatinine 1.67, GFR is reduced to 30 mL. The patient's magnesium is 2.5. The patient's liver function tests are normal with a slightly elevated direct bilirubin of 0.5. The patient's albumin is 2.5, protein is 5.1. IMPRESSION: 1. HYPOTENSION. Blood pressure is low 100s to low 90s on 5 mcg/kg dopamine drip. The patient is still requiring this. I discussed with the drawing in machine tender and stated that as long as the renal function is stable and the patient is well hydrated can try Midodrine 2.5 mg p.o. b.i.d. We will try that a low dose to see if the patient can come off dopamine. 2. 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 There is no further active bleeding but there is some melanotic stools. 3. ANEMIA SECONDARY TO ACUTE BLOOD LOSS. The patient's hemoglobin is 9.7 somewhat stable. 4. CHRONIC DIASTOLIC HEART FAILURE AT PRESENT SEEMS TO BE COMPENSATED. 5. SEVERE PULMONARY HYPERTENSION. The patient's right ventricular systolic pressure was 70-76 mmHg latest one. The patient is on sildenafil. 6. OBESITY HYPOVENTILATION SYNDROME. 7. OBSTRUCTIVE SLEEP APNEA. Continue CPAP. 8. HISTORY OF ANTICOAGULATION WITH COUMADIN. This had been stopped due to treated gastrointestinal bleed. 10. CHRONIC ATRIAL FIBRILLATION. Rate controlled at present with medications. 11. CHRONIC KIDNEY DISEASE STAGE 3. Seems to be stable but seems to somewhat diminish. We will watch the patient's renal functions. May have to increase the patient's Lasix. 12. CHRONIC OBSTRUCTIVE PULMONARY DISEASE. At present seems to be compensated but requires BiPAP. Continue anti-chronic obstructive pulmonary disease medication. 13. CHRONIC LYMPHEDEMA AND CHRONIC VENOUS STASIS DERMATITIS OF THE PATIENT'S EXTREMITIES. 14. HYPOTHYROIDISM. RECOMMENDATIONS: Note above, I have started the patient on Midodrine 2.5 mg p.o. b.i.d. Continue atenolol. Continue aspirin. Continue atorvastatin. Continue folic acid. The patient is on Lasix 40 mg daily we will see if this needs to be increased. Continue dopamine at 5 mcg/kg per minute. Continue her ipratropium bromine Atrovent 0.5 mg in pressor treatment. Continue Xopenex. Continue levothyroxine. Continue sildenafil. Continue thiamine. Note the plans were discussed with the drawing in machine tender. We will watch the patient's kidney functions carefully on Midodrine. The other option is to get her blood pressure up is to put a central line in the patient and start the patient on Levophed with her pulmonary hypertension. Note that the patient's anticoagulations are on hold. Note medications are reviewed and medications added. Discussed with the hospitalist and the nurse the patient in detail and plan of care. More than 50% of the time was spent on direct patient care. This is a case with high complexity with medical decision in view of the multiple renal problems and the patient's persistent hypotension requiring pressor support, and also need to watch the patient's kidney functions on Midodrine. Thirty minutes spent on this patient as mentioned earlier and more than 50% of the time spent on direct patient care. DICTATING PHYSICIAN: THOMAS BLANCA M.D. [id number] MEET#: [id number] ID: [id number] JOB#: [id number] ACCT: [id number] cc: >
[2016-11-08] MEDS: LEVALBUTEROL HCL NEB 1.25 MG/3 ML AMPUL NEB SCH ×4 (02:06→20:11)
[2016-11-08] MEDS: IPRATROPIUM BROMIDE 0.02% NEB 0.5 MG/2.5 ML AMPUL NEB SCH ×4 (02:06→20:11)
[2016-11-08 05:13] LABS: HEMATOCRIT 29.2 % (36.0-47.0); HEMOGLOBIN 9.6 g/dL (12.0-15.5); HGB HCT DIFFERENCE -0.4; MEAN CORPUSCULAR HEMOGLOBIN 29.9 pg (27.0-33.4); MEAN CORPUSCULAR HGB CONC 32.8 g/dL (32.0-36.0); MEAN CORPUSCULAR VOLUME 91 fl (80-97); RED CELL DISTRIBUTION WIDTH 17.8 % (11.5-14.0); WHITE BLOOD COUNT 9.7 10^3/uL (4.0-10.5)
[2016-11-08 05:32] LABS: BAND NEUTROPHILS % (MANUAL) 1 % (3-5); BASOPHILS % (MANUAL) 0 % (0-2); EOSINOPHILS % (MANUAL) 1 % (0-6); LYMPHOCYTES % (MANUAL) 1 % (13-45); TOTAL CELLS COUNTED 100
[2016-11-08 05:36] LABS: ANION GAP 9 (5-19); BLOOD UREA NITROGEN 92 mg/dL (7-20); CALCIUM 8.8 mg/dL (8.4-10.2); CARBON DIOXIDE 29 mmol/L (22-30); CHLORIDE 103 mmol/L (98-107); CREATININE RESULT 1.37 mg/dL (0.52-1.25); GLUCOSE 95 mg/dL (75-110); POLYCHROMASIA SLIGHT; POTASSIUM 3.9 mmol/L (3.6-5.0); SODIUM 140.9 mmol/L (137-145); TOXIC GRANULATION SLIGHT
[2016-11-08 05:38] LABS: ANISOCYTOSIS 1+; SCHISTOCYTES SLIGHT
[2016-11-08] MEDS: LEVOTHYROXINE SODIUM 0.15 MG TABLET PO SCH (06:24)
[2016-11-08] MEDS: LANSOPRAZOLE 30 MG TAB.RAP.DR PO SCH (06:25)
[2016-11-08] MEDS: DOPAMINE HCL/DEXTROSE 5%-WATER 250 ML IV PRN (06:34)
[2016-11-08] MEDS: POTASSIUM CHLORIDE 20 MEQ/15 ML UDCUP PO SCH (09:47)
[2016-11-08] MEDS: MULTIVITAMIN TABLET PO SCH (09:47)
[2016-11-08] MEDS: SILDENAFIL CITRATE 20 MG TABLET PO SCH ×3 (09:47→17:25)
[2016-11-08] MEDS: DOCUSATE SODIUM 100 MG CAPSULE PO SCH ×2 (09:47→17:21)
[2016-11-08] MEDS: MIDODRINE HCL 5 MG TABLET PO SCH ×2 (09:48→17:25)
[2016-11-08] MEDS: GABAPENTIN 300 MG CAPSULE PO SCH ×2 (09:48→22:18)
[2016-11-08] MEDS: FOLIC ACID 1 MG TABLET PO SCH (09:48)
[2016-11-08] MEDS: THIAMINE HCL 100 MG TABLET PO SCH (09:48)
[2016-11-08] MEDS: NYSTATIN TOPICAL POWDER 15 GM TP SCH ×2 (09:49→17:24)
[2016-11-08] MEDS: FUROSEMIDE 40 MG TABLET PO SCH (09:51)
[2016-11-08] MEDS: ASPIRIN 81 MG TABLET, ENT COATED PO SCH (09:51)
[2016-11-08] MEDS: ATENOLOL 50 MG TABLET PO SCH (09:51)
[2016-11-08] MEDS: NICOTINE 21 MG/24 HR PATCH.TD24 TOP SCH (09:51)
--- NOTE | 2016-11-08 11:37 | PDOC PROGRESS REPORT ---
Subjective Progress Note for:: 11/08/16 Subjective:: her hemoglobin has remained stable. Patient is on BiPAP and denies complaints. Physical Exam Vital Signs: Temp Pulse Resp BP Pulse Ox 98.8 F 89 18 117/54 L 97 11/08/16 08:33 11/08/16 08:33 11/08/16 08:33 11/08/16 08:33 11/08/16 08:33 Intake & Output 11/07/16 11/08/16 11/09/16 06:59 06:59 06:59 Intake Total 1759 1192 Output Total 1150 1525 Balance 609 -333 Weight 131.6 kg 132.6 kg General appearance: PRESENT: mild distress Eye exam: PRESENT: conjunctiva pink. ABSENT: scleral icterus Mouth exam: PRESENT: moist, tongue midline Neck exam: ABSENT: JVD Respiratory exam: PRESENT: clear to auscultation flory. ABSENT: rales, rhonchi, wheezes Cardiovascular exam: PRESENT: RRR. ABSENT: diastolic murmur, rubs, systolic murmur GI/Abdominal exam: PRESENT: normal bowel sounds, soft. ABSENT: distended, guarding, mass, organolmegaly, rebound, tenderness Extremities exam: PRESENT: pedal edema. ABSENT: calf tenderness, clubbing Neurological exam: PRESENT: alert, awake, oriented to person, oriented to place , oriented to time, oriented to situation, CN II-XII grossly intact. ABSENT: motor sensory deficit Psychiatric exam: PRESENT: flat affect Skin exam: PRESENT: dry, intact, warm. ABSENT: cyanosis, rash Results Laboratory Results: 11/08/16 04:50 11/08/16 04:50 11/07/16 11/08/16 11/08/16 17:47 04:50 04:50 WBC 9.7 RBC 3.20 L Hgb 9.6 L Hct 29.2 L MCV 91 MCH 29.9 MCHC 32.8 RDW 17.8 H Plt Count 62 L Seg Neutrophils % Not Reportable Lymphocytes % Not Reportable Monocytes % Not Reportable Eosinophils % Not Reportable Basophils % Not Reportable Absolute Neutrophils Not Reportable Absolute Lymphocytes Not Reportable Absolute Monocytes Not Reportable Absolute Eosinophils Not Reportable Absolute Basophils Not Reportable Carbonic Acid 2.48 H HCO3/H2CO3 Ratio 13:1 ABG pH 7.21 L ABG pCO2 82.3 H* ABG pO2 90.4 ABG HCO3 32.5 H ABG O2 Saturation 94.7 ABG Base Excess 2.8 FiO2 90% Sodium 140.9 Potassium 3.9 Chloride 103 Carbon Dioxide 29 Anion Gap 9 BUN 92 H Creatinine 1.37 H Est GFR ( Amer) 46 L Est GFR (Non-Af Amer) 38 L Glucose 95 Calcium 8.8 Impressions: KUB X-Ray 11/04/16 14:40 IMPRESSION: NG tube in appropriate location. Other findings as above. Assessment & Plan - Diagnosis (1) Acute upper gastrointestinal bleeding Is this a current diagnosis for this admission?: YesPlan: Patient had an AVM and had cautery. The patient's hemoglobin remains stable. Was going to get a bleeding scan, however her respiratory status was tenuous and will hold off on getting a bleeding scan unless her hemoglobin continues to decrease. (2) Anemia associated with acute blood loss Is this a current diagnosis for this admission?: YesPlan: We'll monitor and transfuse as needed. (3) Hypotension due to blood loss Is this a current diagnosis for this admission?: YesPlan: Cardiology has started the patient on Midodrin (4) Acute and chronic respiratory failure with hypercapnia Is this a current diagnosis for this admission?: YesPlan: We'll continue with the BiPAP. (5) COPD (chronic obstructive pulmonary disease) Is this a current diagnosis for this admission?: YesPlan: Continue with BiPAP as needed (6) Hypothyroid Is this a current diagnosis for this admission?: YesPlan: Continue with the Synthroid. (7) Moderate to severe pulmonary hypertension Is this a current diagnosis for this admission?: YesPlan: Patient is on Viagra however the patient is having problems with low blood pressures. (8) Atrial fibrillation Qualifiers: Atrial fibrillation type: chronic Qualified Code(s): I48.2 - Chronic atrial fibrillation Is this a current diagnosis for this admission?: YesPlan: Patient is currently rate control. (9) Thrombocytopenia Is this a current diagnosis for this admission?: YesPlan: Platelets have remained stable but low. - Time Time Spent with patient: 25-34 minutes - Inpatient Certification Medical Necessity: Need Close Monitoring Due to Risk of Patient Decompensation
--- NOTE | 2016-11-08 20:58 | PROGRESS NOTE E ---
Progress Note NAME: MARIANO HENRY : 1945 AGE: 71Y DATE: 11/08/2016 ROOM: 319 SUBJECTIVE: Of note the patient was seen from 11:45 a.m. to 12:15 p.m., a total of 30 minutes. The patient denies any complaints, but she is wearing BiPAP. She denies any increased shortness of breath. There is no orthopnea when she is lying down flat. There is no PND. There is no chest pain or discomfort. There are no palpitations. She is in atrial fibrillation with controlled ventricular response. No evidence of GI bleed. She has no nausea or vomiting. There are no TIA or CVA symptoms. The patient denies any abdominal pain and no further melenic stools. OBJECTIVE: GENERAL: On examination the patient is morbidly obese. She is afebrile with a temperature of 98.3 degrees Fahrenheit. Pulse is 74 beats per minute. Blood pressure is 93/44 in spite of midodrine and dopamine at 5 mcg/kg/minute. Her respirations are 20 per minute. On the BiPAP 50%, her O2 saturation is 93%. HEAD: Atraumatic/normocephalic. EYES: Pupils are equal, round, regular, reactive to light and accommodation. Extraocular movements are normal. There is no conjunctival pallor. There is no scleral icterus. EARS: Tympanic membranes are intact. External auditory canals are clear. NOSE AND THROAT: The rest of the ENT could not be examined because of the BiPAP. NECK: The neck is supple. There is no JVD. Carotids are equal. There is no bruit. Trachea is central. There is no goiter. There is no lymphadenopathy. LUNGS: The lungs show diminished air entry and prolonged expiration without any rhonchi, rales, or wheezing. There is hyperresonance on percussion. HEART: S1, S2 is heard. There is no S3 gallop. There is no S4 gallop. S1 is of variable intensity. There is a systolic murmur in the left sternal border and the apex. There is no rub. ABDOMEN: Soft, obese. There is no epigastric tube discomfort. There is no rebound, guarding, or rigidity. There is no hepatosplenomegaly. Bowel sounds are well heard. EXTREMITIES: Femorals are diminished. There are no femoral bruits. Leg pulses are difficult to palpate due to chronic lymphedema. There is no increase in the quality of the lymphedema. There is venous stasis dermatitis. CENTRAL NERVOUS SYSTEM: The patient is conscious, awake, alert and oriented x3, but she states that she is weak in both the lower extremities, cause unknown. PSYCHIATRIC: The patient does not appear to be anxious or depressed. FLUID BALANCE: The patient's 24-hour intake is 1192 mL, output is 1545 mL. DIAGNOSTIC DATA: The patient's white count is 9,700, hemoglobin is 9.6, hematocrit is 29.2, and the platelet count is 62,000. The patient's sodium is 140.9, potassium is 3.9, chloride is 102, CO2 is 29, the patient's BUN is 92, creatinine is 1.27, and the GFR is actually improved to 38 mL. Glucose is 95. Her calcium is 8.8. IMPRESSION: 1. HYPOTENSION. The blood pressure is in the 90s in spite of being started on midodrine. The patient's renal function seems to have improved, hence we will increase the patient's midodrine to 2.5 mg p.o. t.i.d. Also, continue the patient's dopamine at 5 mcg/kg/minute at present. 2. GI BLEED SECONDARY TO GASTRIC AV MALFORMATION WHICH HAS BEEN CAUTERIZED. 3. ANEMIA SECONDARY TO ACUTE BLOOD LOSS. The patient's hemoglobin is stable around 9.6. 4. CHRONIC DIASTOLIC HEART FAILURE. At present seems to be well compensated. 5. SEVERE PULMONARY HYPERTENSION. The patient is on sildenafil. I am not sure if it is doing her any good. 6. OBESITY HYPOVENTILATION SYNDROME. Continue CPAP. 7. OBSTRUCTIVE SLEEP APNEA. Continue CPAP. 8. PAST HISTORY OF ANTICOAGULATION WITH COUMADIN. This was recently stopped due to GI bleed. 9. CHRONIC ATRIAL FIBRILLATION, RATE CONTROLLED WITH *------*. 10. CHRONIC KIDNEY DISEASE STAGE 3. This is improved from a GFR of 30 to 38. 11. COPD. At present compensated but will continue chronic COPD treatment. 12. CHRONIC LYMPHEDEMA AND CHRONIC VENOUS STASIS DERMATITIS OF PATIENT'S EXTREMITIES. 13. HYPOTHYROIDISM. RECOMMENDATIONS: As mentioned earlier will continue dopamine at 5 mcg/kg/minute. Continue atenolol. Continue her respiratory treatments. Continue sildenafil. Continue Xopenex. Continue levothyroxine. Will increase the patient's midodrine to 2.5 mg p.o. t.i.d. and watch her kidney function carefully. Of note, above has been discussed with the attending physician covering, Dr. Álvarez, and also the medications were reviewed and medications adjusted. Note this is a very highly complicated case needing complex medical decision making in view of multiple comorbidities and persistent hypotension in spite of pressors and in spite of midodrine. Note, more than 50% of the time spent in direct patient care. Dr. Fitch will be following the patient in the a.m. DICTATING PHYSICIAN: THOMAS BLANCA M.D. [id number] PHY#: [id number] ID: [id number] JOB#: [id number] ACCT: [id number] cc:THOMAS BLANCA M.D. >
[2016-11-08] MEDS: ATORVASTATIN CALCIUM 40 MG TABLET PO SCH (22:18)
[2016-11-09] MEDS: LEVALBUTEROL HCL NEB 1.25 MG/3 ML AMPUL NEB SCH ×4 (01:56→20:28)
[2016-11-09] MEDS: IPRATROPIUM BROMIDE 0.02% NEB 0.5 MG/2.5 ML AMPUL NEB SCH ×4 (01:56→20:28)
[2016-11-09] MEDS: DOPAMINE HCL/DEXTROSE 5%-WATER 250 ML IV PRN (02:22)
[2016-11-09 04:56] LABS: HEMATOCRIT 31.5 % (36.0-47.0); HEMOGLOBIN 10.4 g/dL (12.0-15.5); HGB HCT DIFFERENCE -0.3; MEAN CORPUSCULAR HEMOGLOBIN 30.6 pg (27.0-33.4); MEAN CORPUSCULAR HGB CONC 33.1 g/dL (32.0-36.0); MEAN CORPUSCULAR VOLUME 93 fl (80-97); RED CELL DISTRIBUTION WIDTH 17.6 % (11.5-14.0)
[2016-11-09 05:20] LABS: ANION GAP 9 (5-19); BLOOD UREA NITROGEN 77 mg/dL (7-20); CALCIUM 9.1 mg/dL (8.4-10.2); CARBON DIOXIDE 31 mmol/L (22-30); CHLORIDE 103 mmol/L (98-107); CREATININE RESULT 1.07 mg/dL (0.52-1.25); GLUCOSE 123 mg/dL (75-110); POTASSIUM 3.7 mmol/L (3.6-5.0); SODIUM 143.2 mmol/L (137-145)
[2016-11-09] MEDS: LANSOPRAZOLE 30 MG TAB.RAP.DR PO SCH (05:25)
[2016-11-09] MEDS: LEVOTHYROXINE SODIUM 0.15 MG TABLET PO SCH (05:25)
[2016-11-09 05:26] LABS: BAND NEUTROPHILS % (MANUAL) 3 % (3-5); BASOPHILS % (MANUAL) 0 % (0-2); EOSINOPHILS % (MANUAL) 9 % (0-6); LYMPHOCYTES % (MANUAL) 6 % (13-45); TOTAL CELLS COUNTED 100
[2016-11-09 05:31] LABS: ANISOCYTOSIS 1+; POLYCHROMASIA 1+; TARGET CELLS SLIGHT
--- NOTE | 2016-11-09 08:40 | PDOC PROGRESS REPORT ---
Subjective Progress Note for:: 11/09/16 Subjective:: The patient is complaining of being uncomfortable with the BiPAP mask. She is complaining of left hand pain. Her ins and outs are negative. Her blood pressure is better controlled. Physical Exam Vital Signs: Temp Pulse Resp BP Pulse Ox 99.4 F 81 34 H 123/62 97 11/09/16 07:21 11/09/16 08:00 11/09/16 08:00 11/09/16 07:21 11/09/16 08:00 Intake & Output 11/08/16 11/09/16 11/10/16 06:59 06:59 06:59 Intake Total 1192 1210 Output Total 1525 2290 Balance -333 -1080 Weight 132.6 kg 131.5 kg General appearance: PRESENT: mild distress, morbidly obese Head exam: PRESENT: atraumatic Eye exam: PRESENT: conjunctival injection Neck exam: ABSENT: carotid bruit Respiratory exam: PRESENT: rhonchi Cardiovascular exam: PRESENT: irregular rhythm Pulses: PRESENT: +1 pedal pulses bilateral GI/Abdominal exam: PRESENT: normal bowel sounds, soft Musculoskeletal exam: PRESENT: tenderness Skin exam: PRESENT: mottled Results Laboratory Results: 11/09/16 04:23 11/09/16 04:23 11/09/16 11/09/16 04:23 04:23 WBC 11.0 H RBC 3.40 L Hgb 10.4 L Hct 31.5 L MCV 93 MCH 30.6 MCHC 33.1 RDW 17.6 H Plt Count 75 L Seg Neutrophils % Not Reportable Lymphocytes % Not Reportable Monocytes % Not Reportable Eosinophils % Not Reportable Basophils % Not Reportable Absolute Neutrophils Not Reportable Absolute Lymphocytes Not Reportable Absolute Monocytes Not Reportable Absolute Eosinophils Not Reportable Absolute Basophils Not Reportable Sodium 143.2 Potassium 3.7 Chloride 103 Carbon Dioxide 31 H Anion Gap 9 BUN 77 H Creatinine 1.07 Est GFR ( Amer) > 60 Est GFR (Non-Af Amer) 51 L Glucose 123 H Calcium 9.1 11/06/16 16:05 Stool - Stool - Final 11/06/16 16:05 Stool - Stool Stool Culture - Final C.albicans/C.dubliniensis 11/04/16 07:15 Blood Blood Culture - Final NO GROWTH IN 5 DAYS 11/04/16 06:20 Blood Blood Culture - Final NO GROWTH IN 5 DAYS Impressions: KUB X-Ray 11/04/16 14:40 IMPRESSION: NG tube in appropriate location. Other findings as above. Assessment & Plan - Diagnosis (1) Acute upper gastrointestinal bleeding Is this a current diagnosis for this admission?: YesPlan: Controlled with endoscopy and cauterization of the AVM. Plan H&H is up (2) Anemia associated with acute blood loss Is this a current diagnosis for this admission?: YesPlan: H&H is up (3) Hypotension due to blood loss Is this a current diagnosis for this admission?: YesPlan: Improved with transfusions IV fluids and medications (4) Moderate to severe pulmonary hypertension Is this a current diagnosis for this admission?: YesPlan: Stable and controlled with meds (5) Atrial fibrillation Qualifiers: Atrial fibrillation type: chronic Qualified Code(s): I48.2 - Chronic atrial fibrillation Is this a current diagnosis for this admission?: YesPlan: Rate controlled (6) Obesity hypoventilation syndrome Is this a current diagnosis for this admission?: YesPlan: On BiPAP. Later O2 saturation with a high CO2 (7) Obstructive sleep apnea Is this a current diagnosis for this admission?: YesPlan: Continue BiPAP
[2016-11-09] MEDS: POTASSIUM CHLORIDE 20 MEQ/15 ML UDCUP PO SCH (09:02)
[2016-11-09] MEDS: ASPIRIN 81 MG TABLET, ENT COATED PO SCH (09:03)
[2016-11-09] MEDS: GABAPENTIN 300 MG CAPSULE PO SCH ×2 (09:03→21:37)
[2016-11-09] MEDS: ACETAMINOPHEN 325 MG TABLET PO PRN ×2 (09:03→21:37)
[2016-11-09] MEDS: MULTIVITAMIN TABLET PO SCH (09:04)
[2016-11-09] MEDS: MIDODRINE HCL 5 MG TABLET PO SCH ×4 (09:04→17:20)
[2016-11-09] MEDS: THIAMINE HCL 100 MG TABLET PO SCH (09:05)
[2016-11-09] MEDS: FOLIC ACID 1 MG TABLET PO SCH (09:05)
[2016-11-09] MEDS: DOCUSATE SODIUM 100 MG CAPSULE PO SCH ×2 (09:07→17:20)
[2016-11-09] MEDS: NYSTATIN TOPICAL POWDER 15 GM TP SCH ×2 (09:07→17:20)
[2016-11-09] MEDS: NICOTINE 21 MG/24 HR PATCH.TD24 TOP SCH (09:07)
[2016-11-09] MEDS: FUROSEMIDE 40 MG TABLET PO SCH (09:07)
[2016-11-09] MEDS: ATENOLOL 50 MG TABLET PO SCH (09:07)
[2016-11-09] MEDS: SILDENAFIL CITRATE 20 MG TABLET PO SCH ×3 (09:07→16:17)
--- NOTE | 2016-11-09 11:11 | PDOC PROGRESS REPORT ---
Subjective Progress Note for:: 11/09/16 Subjective:: patient stable over the weekend H/H is stable, bleeding scan not done since had respiratory distress patient is very high risk, she cannot be sedated for any sort of procedure she had unsedated EGD patient also has very tenuous respiratory status, would benefit from potential transfer to tertiary institution Physical Exam Vital Signs: Temp Pulse Resp BP Pulse Ox 99.4 F 81 34 H 123/62 97 11/09/16 07:21 11/09/16 08:00 11/09/16 08:00 11/09/16 07:21 11/09/16 08:00 Intake & Output 11/08/16 11/09/16 11/10/16 06:59 06:59 06:59 Intake Total 1192 1210 Output Total 1525 2290 Balance -333 -1080 Weight 132.6 kg 131.5 kg General appearance: PRESENT: no acute distress, mild distress, well-developed, well-nourished Head exam: PRESENT: atraumatic, normocephalic Eye exam: PRESENT: EOMI, PERRLA. ABSENT: periorbital swelling, scleral icterus Throat exam: ABSENT: tonsillar exudate, tonsillogmegaly Neck exam: ABSENT: meningismus, tenderness, thyromegaly Respiratory exam: PRESENT: symmetrical, tachypnea Cardiovascular exam: PRESENT: RRR, +S1, +S2 GI/Abdominal exam: PRESENT: soft. ABSENT: rebound, rigid, tenderness Extremities exam: ABSENT: joint swelling Neurological exam: PRESENT: oriented to time, oriented to situation, CN II-XII grossly intact Skin exam: PRESENT: normal color. ABSENT: mottled, urticaria, vesicles Results Laboratory Results: 11/09/16 04:23 11/09/16 04:23 11/09/16 11/09/16 04:23 04:23 WBC 11.0 H RBC 3.40 L Hgb 10.4 L Hct 31.5 L MCV 93 MCH 30.6 MCHC 33.1 RDW 17.6 H Plt Count 75 L Seg Neutrophils % Not Reportable Lymphocytes % Not Reportable Monocytes % Not Reportable Eosinophils % Not Reportable Basophils % Not Reportable Absolute Neutrophils Not Reportable Absolute Lymphocytes Not Reportable Absolute Monocytes Not Reportable Absolute Eosinophils Not Reportable Absolute Basophils Not Reportable Sodium 143.2 Potassium 3.7 Chloride 103 Carbon Dioxide 31 H Anion Gap 9 BUN 77 H Creatinine 1.07 Est GFR ( Amer) > 60 Est GFR (Non-Af Amer) 51 L Glucose 123 H Calcium 9.1 11/06/16 16:05 Stool - Stool - Final 11/06/16 16:05 Stool - Stool Stool Culture - Final C.albicans/C.dubliniensis 11/04/16 07:15 Blood Blood Culture - Final NO GROWTH IN 5 DAYS 11/04/16 06:20 Blood Blood Culture - Final NO GROWTH IN 5 DAYS Impressions: KUB X-Ray 11/04/16 14:40 IMPRESSION: NG tube in appropriate location. Other findings as above. Chest X-Ray 11/09/16 00:00 IMPRESSION: 1. Left lower lobe pneumonia versus marked atelectasis. 2. There is pulmonary vascular prominence with no brenda CHF. 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 she cannot be sedated for any sort of procedure given her tenuous status continue to follow up on H/H transfuse as necessary - Time Time Spent with patient: 15-24 minutes
--- NOTE | 2016-11-09 13:52 | PDOC PROGRESS REPORT ---
Subjective Progress Note for:: 11/09/16 Subjective:: Patient remains critically ill. She remains lethargic. She is currently on bilevel therapy. Patient remains on dopamine drip. Telemetry strips shows atrial fibrillation. Blood pressure remains very tentative and at times on the low side. Physical Exam Vital Signs: Temp Pulse Resp BP Pulse Ox 98.4 F 91 25 H 117/49 L 100 11/09/16 10:57 11/09/16 10:57 11/09/16 11:37 11/09/16 10:57 11/09/16 11:37 Intake & Output 11/08/16 11/09/16 11/10/16 06:59 06:59 06:59 Intake Total 1192 1210 118 Output Total 1525 2290 300 Balance -333 -1080 -182 Weight 132.6 kg 131.5 kg Exam: GENERAL: well-nourished and in no acute distress. Alert and oriented x3 HEAD: Atraumatic, normocephalic. EYES: Pupils equal round and reactive to light, extraocular movements intact, sclera anicteric, conjunctiva are normal. ENT: TMs normal, nares patent, oropharynx clear without exudates. Moist mucous membranes. No oral ulcerations or bleeding gums noted NECK: supple without lymphadenopathy. Trachea is central. No cervical or axillary lymphadenopathy noted. Carotids are 2+, JVD DIFFICULT TO ASSESS LUNGS: Respiration seems nonlabored, no significant accessory muscle action noted. Bibasal a fine crackles and bilateral mild wheezing noted. No significant dullness noted on percussion. CHEST: Palpation of the chest wall shows no significant chest wall tenderness. No other significant abnormalities noted. HEART: [place] [employer], No PSH, 1/6 LAMINE aortic area, 1/6 rausch systolic murmur mitral area, no rubs, no gallops. ABDOMEN: Soft, no significant tenderness appreciated, normoactive bowel sounds. No guarding, no rebound. No rigidity noted . No masses appreciated. EXTREMITIES: Pedal pulses are 1-2+, no calf tenderness noted. No clubbing or cyanosis.1-2+ + pedal edema noted NEUROLOGICAL: Focused neurological exam showed no significant neurologic deficit. Normal speech, no focal weakness appreciated. PSYCH: Normal mood, normal affect. Judgment and insight within normal limits. SKIN: No significant ecchymosis, rash, ulcerations or signs of pruritus noted. MUSCULOSKELETAL EXAM: No significant joint swelling noted. Results Laboratory Results: 11/09/16 04:23 11/09/16 04:23 11/09/16 11/09/16 04:23 04:23 WBC 11.0 H RBC 3.40 L Hgb 10.4 L Hct 31.5 L MCV 93 MCH 30.6 MCHC 33.1 RDW 17.6 H Plt Count 75 L Seg Neutrophils % Not Reportable Lymphocytes % Not Reportable Monocytes % Not Reportable Eosinophils % Not Reportable Basophils % Not Reportable Absolute Neutrophils Not Reportable Absolute Lymphocytes Not Reportable Absolute Monocytes Not Reportable Absolute Eosinophils Not Reportable Absolute Basophils Not Reportable Sodium 143.2 Potassium 3.7 Chloride 103 Carbon Dioxide 31 H Anion Gap 9 BUN 77 H Creatinine 1.07 Est GFR ( Amer) > 60 Est GFR (Non-Af Amer) 51 L Glucose 123 H Calcium 9.1 11/06/16 16:05 Stool - Stool - Final 11/06/16 16:05 Stool - Stool Stool Culture - Final C.albicans/C.dubliniensis 11/04/16 07:15 Blood Blood Culture - Final NO GROWTH IN 5 DAYS 11/04/16 06:20 Blood Blood Culture - Final NO GROWTH IN 5 DAYS Impressions: KUB X-Ray 11/04/16 14:40 IMPRESSION: NG tube in appropriate location. Other findings as above. Chest X-Ray 11/09/16 00:00 IMPRESSION: 1. Left lower lobe pneumonia versus marked atelectasis. 2. There is pulmonary vascular prominence with no brenda CHF. Assessment & Plan - Diagnosis (1) Arterial hypotension Qualifiers: Hypotension type: unspecified hypotension type Qualified Code(s): I95.9 - Hypotension, unspecified Is this a current diagnosis for this admission?: Yes (2) Obesity hypoventilation syndrome Is this a current diagnosis for this admission?: Yes (3) Obstructive sleep apnea Is this a current diagnosis for this admission?: Yes (4) Pulmonary hypertension Is this a current diagnosis for this admission?: Yes (5) Atrial fibrillation Qualifiers: Atrial fibrillation type: chronic Qualified Code(s): I48.2 - Chronic atrial fibrillation Is this a current diagnosis for this admission?: Yes (6) Respiratory failure Qualifiers: Chronicity: acute on chronic Respiratory failure complication: hypoxia and hypercapnia Qualified Code(s): J96.21 - Acute and chronic respiratory failure with hypoxia Is this a current diagnosis for this admission?: Yes - Notes Notes: Arterial hypotension: Exact etiology not clear but could be related to severe right heart failure, severe pulmonary hypertension. Possible contribution from recent GI bleed. Increased Midodrin 5 mg by mouth 3 times a day. Taper off dopamine as possible. Obesity hypoventilation syndrome: This is chronic condition. Continue with noninvasive positive pressure ventilation. Obstructive sleep apnea: Chronic condition continue with noninvasive positive pressure ventilation. Pulmonary hypertension: Secondary to COPD, obesity hypoventilation and obstructive sleep apnea. Continue with positive pressure ventilation. 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 Atrial fibrillation: Most likely chronic. Currently just on rate control. There is contraindication for chronic Coumadin therapy. Respiratory failure with hypoxemia and hypercarbia: Related to COPD, obstructive sleep apnea and obesity hypoventilation syndrome: Continue with positive pressure ventilation. GI bleed: Seems to have stabilized. Patient is status post cauterization of AVMs. Today I increased Midodrin 5 mg by mouth 3 times a day. Will try to taper dopamine. Patient remains critically ill and has multiple comorbid diagnosis which are quite severe. - Time Time with patient: Greater than 35 minutes - CODE STATUS : was discussed, patient remains DO NOT RESUSCITATE. Surrogate decision-maker Ms. Olivia De La Cruz. Multiple medical problems were addressed.More than 50% of the time spent coordinating care, discussing management plans with involved caregivers. Management plans discussed with involved personnels. Medical decision making was of moderate to high complexity, patient's has multiple severe comorbidities.
[2016-11-09] MEDS: ATORVASTATIN CALCIUM 40 MG TABLET PO SCH (21:37)
[2016-11-10] MEDS: IPRATROPIUM BROMIDE 0.02% NEB 0.5 MG/2.5 ML AMPUL NEB SCH ×4 (02:12→20:23)
[2016-11-10] MEDS: LEVALBUTEROL HCL NEB 1.25 MG/3 ML AMPUL NEB SCH ×4 (02:12→20:24)
[2016-11-10] MEDS: DOPAMINE HCL/DEXTROSE 5%-WATER 250 ML IV PRN (02:57)
[2016-11-10 04:59] LABS: ABSOLUTE EOSINOPHILS # (AUTO) 0.5 10^3/uL (0.0-0.6); ABSOLUTE LYMPHOCYTES (AUTO) 0.5 10^3/uL (0.5-4.7); ABSOLUTE MONOCYTES (AUTO) 0.3 10^3/uL (0.1-1.4); ABSOLUTE NEUT (AUTO) 7.3 10^3/uL (1.7-8.2); BASOPHILS % (AUTO) 0.6 % (0-2); EOSINOPHILS % (AUTO) 5.5 % (0-6); HEMATOCRIT 32.9 % (36.0-47.0); HEMOGLOBIN 10.8 g/dL (12.0-15.5); HGB HCT DIFFERENCE -0.5; MEAN CORPUSCULAR HEMOGLOBIN 30.2 pg (27.0-33.4); MEAN CORPUSCULAR HGB CONC 32.9 g/dL (32.0-36.0); MEAN CORPUSCULAR VOLUME 92 fl (80-97); MONOCYTES % (AUTO) 3.7 % (3-13); RED BLOOD COUNT 3.58 10^6/uL (3.72-5.28); RED CELL DISTRIBUTION WIDTH 18.4 % (11.5-14.0); SEGMENTED NEUTROPHILS % (AUTO) 84.2 % (42-78); WHITE BLOOD COUNT 8.7 10^3/uL (4.0-10.5)
[2016-11-10 05:16] LABS: ANISOCYTOSIS 1+; POLYCHROMASIA 1+
[2016-11-10 05:17] LABS: ANION GAP 9 (5-19); BLOOD UREA NITROGEN 68 mg/dL (7-20); CALCIUM 9.2 mg/dL (8.4-10.2); CARBON DIOXIDE 32 mmol/L (22-30); CHLORIDE 103 mmol/L (98-107); CREATININE RESULT 1.07 mg/dL (0.52-1.25); GLUCOSE 126 mg/dL (75-110); POIKILOCYTOSIS SLIGHT; POTASSIUM 3.8 mmol/L (3.6-5.0); SODIUM 144.2 mmol/L (137-145); TARGET CELLS 1+
[2016-11-10] MEDS: LANSOPRAZOLE 30 MG TAB.RAP.DR PO SCH (05:39)
[2016-11-10] MEDS: LEVOTHYROXINE SODIUM 0.15 MG TABLET PO SCH (05:39)
[2016-11-10] MEDS: SILDENAFIL CITRATE 20 MG TABLET PO SCH ×3 (08:05→16:52)
--- NOTE | 2016-11-10 08:07 | PDOC PROGRESS REPORT ---
Subjective Progress Note for:: 11/10/16 Subjective:: The patient states to feel slightly better. Her left hand feels better. Her breathing has improved. Physical Exam Vital Signs: Temp Pulse Resp BP Pulse Ox 97.9 F 78 23 H 112/55 L 92 11/10/16 07:32 11/10/16 07:42 11/10/16 07:42 11/10/16 07:32 11/10/16 07:42 Intake & Output 11/09/16 11/10/16 11/11/16 06:59 06:59 06:59 Intake Total 1210 804 Output Total 2290 1300 Balance -1080 -496 Weight 131.5 kg 132 kg General appearance: PRESENT: mild distress Head exam: PRESENT: atraumatic Eye exam: PRESENT: conjunctiva pink Neck exam: ABSENT: carotid bruit Respiratory exam: PRESENT: rhonchi Cardiovascular exam: PRESENT: bradycardia Pulses: PRESENT: +1 pedal pulses bilateral Vascular exam: PRESENT: normal capillary refill GI/Abdominal exam: PRESENT: normal bowel sounds, soft Extremities exam: PRESENT: tenderness Neurological exam: PRESENT: alert, awake Results Laboratory Results: 11/10/16 04:49 11/10/16 04:49 11/10/16 11/10/16 04:49 04:49 WBC 8.7 RBC 3.58 L Hgb 10.8 L Hct 32.9 L MCV 92 MCH 30.2 MCHC 32.9 RDW 18.4 H Plt Count 68 L Seg Neutrophils % 84.2 H Lymphocytes % 6.0 L Monocytes % 3.7 Eosinophils % 5.5 Basophils % 0.6 Absolute Neutrophils 7.3 Absolute Lymphocytes 0.5 Absolute Monocytes 0.3 Absolute Eosinophils 0.5 Absolute Basophils 0.0 Sodium 144.2 Potassium 3.8 Chloride 103 Carbon Dioxide 32 H Anion Gap 9 BUN 68 H Creatinine 1.07 Est GFR ( Amer) > 60 Est GFR (Non-Af Amer) 51 L Glucose 126 H Calcium 9.2 11/06/16 16:05 Stool - Stool - Final 11/06/16 16:05 Stool - Stool Stool Culture - Final C.albicans/C.dubliniensis 11/04/16 07:15 Blood Blood Culture - Final NO GROWTH IN 5 DAYS 11/04/16 06:20 Blood Blood Culture - Final NO GROWTH IN 5 DAYS Impressions: KUB X-Ray 11/04/16 14:40 IMPRESSION: NG tube in appropriate location. Other findings as above. Chest X-Ray 11/09/16 00:00 IMPRESSION: 1. Left lower lobe pneumonia versus marked atelectasis. 2. There is pulmonary vascular prominence with no brenda CHF. Assessment & Plan - Diagnosis (1) Acute upper gastrointestinal bleeding Is this a current diagnosis for this admission?: YesPlan: Controlled with endoscopy and cauterization of the AVM. Plan H&H is up (2) Anemia associated with acute blood loss Is this a current diagnosis for this admission?: YesPlan: H&H is up (3) Hypotension due to blood loss Is this a current diagnosis for this admission?: YesPlan: Improved with transfusions IV fluids and medications (4) Moderate to severe pulmonary hypertension Is this a current diagnosis for this admission?: YesPlan: Stable and controlled with meds (5) Atrial fibrillation Qualifiers: Atrial fibrillation type: chronic Qualified Code(s): I48.2 - Chronic atrial fibrillation Is this a current diagnosis for this admission?: YesPlan: Rate controlled (6) Obesity hypoventilation syndrome Is this a current diagnosis for this admission?: YesPlan: On BiPAP. Later O2 saturation with a high CO2 (7) Obstructive sleep apnea Is this a current diagnosis for this admission?: Yes
[2016-11-10] MEDS: DOCUSATE SODIUM 100 MG CAPSULE PO SCH ×2 (09:17→17:27)
[2016-11-10] MEDS: NICOTINE 21 MG/24 HR PATCH.TD24 TOP SCH (09:17)
[2016-11-10] MEDS: POTASSIUM CHLORIDE 20 MEQ/15 ML UDCUP PO SCH (09:17)
[2016-11-10] MEDS: GABAPENTIN 300 MG CAPSULE PO SCH ×2 (09:17→21:18)
[2016-11-10] MEDS: FUROSEMIDE 40 MG TABLET PO SCH (09:17)
[2016-11-10] MEDS: THIAMINE HCL 100 MG TABLET PO SCH (09:18)
[2016-11-10] MEDS: ASPIRIN 81 MG TABLET, ENT COATED PO SCH (09:18)
[2016-11-10] MEDS: MULTIVITAMIN TABLET PO SCH (09:18)
[2016-11-10] MEDS: MIDODRINE HCL 5 MG TABLET PO SCH ×3 (09:18→17:28)
[2016-11-10] MEDS: FOLIC ACID 1 MG TABLET PO SCH (09:18)
[2016-11-10] MEDS: ATENOLOL 50 MG TABLET PO SCH (09:19)
[2016-11-10] MEDS: NYSTATIN TOPICAL POWDER 15 GM TP SCH ×2 (09:19→17:27)
[2016-11-10 11:41] LABS: ARTERIAL BLOOD BASE EXCESS 4.3 mmol/L; ARTERIAL BLOOD O2 SATURATION 90.6 % (94-98)
--- NOTE | 2016-11-10 13:53 | PDOC PROGRESS REPORT ---
Subjective Progress Note for:: 11/10/16 Subjective:: Patient remains critically ill. She remains lethargic. She is currently on bilevel therapy. Patient remains on dopamine drip. Telemetry strips shows atrial fibrillation. Blood pressure is more stable today. Patient tolerating increased dose of Midodrin. Will therefore attempt to discontinue dopamine drip. It seems patient's lethargy is intermittent. Physical Exam Vital Signs: Temp Pulse Resp BP Pulse Ox 98.1 F 82 22 H 100/44 L 92 11/10/16 11:43 11/10/16 11:43 11/10/16 12:38 11/10/16 11:43 11/10/16 12:38 Pulse Oximeter Continuous Start: 11/10/16 12: 01 Freq: RTQ4 Status: Active Document 11/10/16 12:38 TPO (Rec: 11/10/16 12:39 TPO [id number]) Pulse Oximetry Assessment Oxygen Saturation (92-100) 91 Oxygen Delivery Method Bi-pap Fraction of Inspired Oxygen (FIO2) 35 Equipment Usage Initial Set Up Continuous SpO2 Machine # [id number] Intake & Output 11/09/16 11/10/16 11/11/16 06:59 06:59 06:59 Intake Total 1210 804 Output Total 2290 1300 Balance -1080 -496 Weight 131.5 kg 132 kg Exam: GENERAL: well-nourished and in no acute distress. Alert, orientation not checked today as patient was noted to be lethargic. HEAD: Atraumatic, normocephalic. EYES: Pupils equal round and reactive to light, extraocular movements intact, sclera anicteric, conjunctiva are normal. ENT: TMs normal, nares patent, oropharynx clear without exudates. Moist mucous membranes. No oral ulcerations or bleeding gums noted NECK: supple without lymphadenopathy. Trachea is central. No cervical or axillary lymphadenopathy noted. Carotids are 2+, JVD DIFFICULT TO ASSESS BUT FEEL IT MAY BE ELEVATED. LUNGS: Respiration seems nonlabored, no significant accessory muscle action noted. Bibasal a fine crackles noted. No significant dullness noted. CHEST: Palpation of the chest wall shows no significant chest wall tenderness. No other significant abnormalities noted. HEART: [place] [employer]TER, No PSH, 1/6 LAMINE aortic area, 1/6 rausch systolic murmur mitral area, no rubs, no gallops. ABDOMEN: Soft, no significant tenderness appreciated, normoactive bowel sounds. No guarding, no rebound. No rigidity noted . No masses appreciated. EXTREMITIES: Pedal pulses are 1-2+, no calf tenderness noted. No clubbing or cyanosis.2 + pedal edema noted NEUROLOGICAL: Focused neurological exam showed no facial asymmetry noted. A full neurologic exam not performed. PSYCH: This was not checked today. SKIN: No significant ecchymosis, rash, ulcerations or signs of pruritus noted. MUSCULOSKELETAL EXAM: No significant joint swelling noted. Results Laboratory Results: 11/10/16 04:49 11/10/16 04:49 11/10/16 11/10/16 11/10/16 04:49 04:49 11:21 WBC 8.7 RBC 3.58 L Hgb 10.8 L Hct 32.9 L MCV 92 MCH 30.2 MCHC 32.9 RDW 18.4 H Plt Count 68 L Seg Neutrophils % 84.2 H Lymphocytes % 6.0 L Monocytes % 3.7 Eosinophils % 5.5 Basophils % 0.6 Absolute Neutrophils 7.3 Absolute Lymphocytes 0.5 Absolute Monocytes 0.3 Absolute Eosinophils 0.5 Absolute Basophils 0.0 Carbonic Acid 1.28 HCO3/H2CO3 Ratio 22:1 ABG pH 7.45 ABG pCO2 42.4 ABG pO2 56.5 L ABG HCO3 28.7 H ABG O2 Saturation 90.6 L ABG Base Excess 4.3 FiO2 35% Sodium 144.2 Potassium 3.8 Chloride 103 Carbon Dioxide 32 H Anion Gap 9 BUN 68 H Creatinine 1.07 Est GFR ( Amer) > 60 Est GFR (Non-Af Amer) 51 L Glucose 126 H Calcium 9.2 Impressions: KUB X-Ray 11/04/16 14:40 IMPRESSION: NG tube in appropriate location. Other findings as above. Chest X-Ray 11/09/16 00:00 IMPRESSION: 1. Left lower lobe pneumonia versus marked atelectasis. 2. There is pulmonary vascular prominence with no brenda CHF. Assessment & Plan - Diagnosis (1) Arterial hypotension Qualifiers: Hypotension type: unspecified hypotension type Qualified Code(s): I95.9 - Hypotension, unspecified Is this a current diagnosis for this admission?: Yes (2) Obesity hypoventilation syndrome Is this a current diagnosis for this admission?: Yes (3) Obstructive sleep apnea Is this a current diagnosis for this admission?: Yes (4) Pulmonary hypertension Is this a current diagnosis for this admission?: Yes (5) Atrial fibrillation Qualifiers: Atrial fibrillation type: chronic Qualified Code(s): I48.2 - Chronic atrial fibrillation Is this a current diagnosis for this admission?: Yes (6) Respiratory failure Qualifiers: Chronicity: acute on chronic Respiratory failure complication: hypoxia and hypercapnia Qualified Code(s): J96.21 - Acute and chronic respiratory failure with hypoxia Is this a current diagnosis for this admission?: Yes - Notes Notes: Arterial hypotension: This has improved. Will therefore discontinue dopamine drip. Observe post off dopamine drip. Obesity hypoventilation syndrome: Continue bilevel therapy Obstructive sleep apnea: Continue bilevel therapy. Pulmonary hypertension: Patient tolerating low dose sildenafil therapy. Atrial fibrillation: Chronic, rate seems well controlled. Anticoagulation is on hold but may need to be reevaluated on an ongoing basis. Respiratory failure: Patient on noninvasive positive pressure ventilation. Congestive heart failure most likely secondary to right-sided heart failure and diastolic dysfunction. Continue diuretic therapy. Overall prognosis is guarded. - Time Time with patient: Greater than 35 minutes Medications reviewed and adjusted accordingly: Yes - stopped dopamine drip. Observe closely for any recurrence of hypotension.
--- NOTE | 2016-11-10 20:09 | PDOC CONSULTATION ---
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, Shehas smoked 1.5 ppd x 25 yrs no occupational exsposure to known resp toxins.She has a dog and denies recent travel,No anginal like chest sleeps on 2 pillows no PND admits to nocturnal cough and frequent edema Past Medical History Cardiac Medical History: Reports: Atrial Fibrillation, Congestive Heart Failure , DVT, Hyperlipidema, Hypertension Denies: Pulmonary Embolism Pulmonary Medical History: Reports: Chronic Obstructive Pulmonary Disease (COPD) , Sleep Apnea Neurological Medical History: Denies: Seizures Endocrine Medical History: Reports: Hypothyroidism Denies: Diabetes Mellitus Type 1, Diabetes Mellitus Type 2, Hyperthyroidism GI Medical History: Denies: Cirrhosis, Hepatitis Musculoskeltal Medical History: Reports: Arthritis Psychiatric Medical History: Denies: Depression Infectious Medical History: Denies: Clostridium Difficile, Methicillin-Resistant Staph Aureus Past Surgical History Past Surgical History: Reports: Orthopedic Surgery, Tonsillectomy Social History Information Source: Patient, [facility] Records Lives with: Skilled Nursing Smoking Status: Former Smoker Cigarettes Packs Per Day: 1 Number of Years Smokin Passive smoke exposure as: Both Frequency of Alcohol Use: Heavy Drugs: None Hx Prescription Drug Abuse: No Do you have pets?: Yes Have you had any respiratory illnesses as a child?: Yes Have you been exposed to any sick contacts recently?: No Have you had any recent respiratory illnesses?: No Have you travelled outside of [place] in the past 12 months?: No - Advance Directive Resuscitation Status: Do Not Resuscitate Family History Family History: Reviewed & Not Pertinent Parental Family History Reviewed: Yes Children Family History Reviewed: Yes Sibling(s) Family History Reviewed.: Yes Medication/Allergy Home Medications: Acetaminophen [Tylenol 325 mg Tablet] 650 mg PO Q8HP PRN 11/04/16 Aspirin [Aspirin EC] 81 mg PO DAILY 11/04/16 Atenolol [Tenormin] 25 mg PO DAILY 11/04/16 Atorvastatin Calcium [Lipitor 40 mg Tablet] 40 mg PO QHS 11/04/16 Folic Acid [Folvite 1 mg Tablet] 1 g PO DAILY 11/04/16 Furosemide [Lasix] 40 mg PO DAILY 11/04/16 Gabapentin [Neurontin 300 mg Capsule] 300 mg PO Q12 11/04/16 Levalbuterol HCl [Xopenex Neb 1.25 mg/3 ml Ampul] 1 vial NEB Q6 11/04/16 Levothyroxine Sodium [Synthroid 0.15 mg Tablet] 0.15 mg PO QAM 11/04/16 Mag Hydrox/Al Hydrox/Simeth [Maalox Plus Susp 30 Udcup] 30 ml PO Q6HP PRN Multivitamin [Daily Multiple Vitamin] 1 tab PO DAILY 11/04/16 Nicotine [Nicoderm 21 mg/24 Hr Transderm Patch] 1 patch TOP DAILY 11/04/16 Nystatin [Mycostatin Topical Powder 15 gm] 1 applic TOP BID 11/04/16 Potassium Chloride [Klor-Con 10 Meq Tablet.sa] 10 meq PO DAILY 11/04/16 Prednisone [Deltasone 10 mg Tablet] 10 mg PO DAILY 11/04/16 Sildenafil Citrate [Revatio 20 mg Tablet] 20 mg PO MEALS 11/04/16 Thiamine HCl [Thiamine 100 mg Tablet] 100 mg PO DAILY 11/04/16 Warfarin Sodium [Coumadin 2.5 mg Tablet] 2.5 mg PO QHS 11/04/16 Allergies/Adverse Reactions: codeine [Codeine] Adverse Reaction (Mild, Verified 11/04/16 04:23) VOMITING morphine Adverse Reaction (Verified 11/04/16 04:23) oxycodone [From Percocet] Adverse Reaction (Verified 11/04/16 04:23) prednisone Adverse Reaction (Verified 11/04/16 04:23) Physical Exam Vital Signs: Temp Pulse Resp BP Pulse Ox 98.1 F 82 22 H 100/44 L 91 L 11/10/16 11:43 11/10/16 11:43 11/10/16 11:43 11/10/16 11:43 11/10/16 11:43 Intake & Output 11/09/16 11/10/16 11/11/16 06:59 06:59 06:59 Intake Total 1210 804 Output Total 2290 1300 Balance -1080 -496 Weight 131.5 kg 132 kg General appearance: PRESENT: cooperative, disheveled, mild distress, obese Head exam: PRESENT: atraumatic, normocephalic Eye exam: PRESENT: conjunctiva pale Mouth exam: PRESENT: dry mucosa, neck supple Neck exam: ABSENT: carotid bruit, JVD, lymphadenopathy, thyromegaly Respiratory exam: PRESENT: decreased breath sounds, prolonged expiratory phas, rales, rhonchi, symmetrical, tachypnea Cardiovascular exam: PRESENT: RRR, +S1, +S2 Pulses: PRESENT: normal radial pulses GI/Abdominal exam: PRESENT: normal bowel sounds, soft. ABSENT: distended, guarding, mass, organolmegaly, rebound, tenderness Rectal exam: PRESENT: deferred Psychiatric exam: PRESENT: normal mood Skin exam: PRESENT: dry, warm Results Laboratory Results: 11/10/16 04:49 11/10/16 04:49 11/10/16 11/10/16 11/10/16 04:49 04:49 11:21 WBC 8.7 RBC 3.58 L Hgb 10.8 L Hct 32.9 L MCV 92 MCH 30.2 MCHC 32.9 RDW 18.4 H Plt Count 68 L Seg Neutrophils % 84.2 H Lymphocytes % 6.0 L Monocytes % 3.7 Eosinophils % 5.5 Basophils % 0.6 Absolute Neutrophils 7.3 Absolute Lymphocytes 0.5 Absolute Monocytes 0.3 Absolute Eosinophils 0.5 Absolute Basophils 0.0 Carbonic Acid 1.28 HCO3/H2CO3 Ratio 22:1 ABG pH 7.45 ABG pCO2 42.4 ABG pO2 56.5 L ABG HCO3 28.7 H ABG O2 Saturation 90.6 L ABG Base Excess 4.3 FiO2 35% Sodium 144.2 Potassium 3.8 Chloride 103 Carbon Dioxide 32 H Anion Gap 9 BUN 68 H Creatinine 1.07 Est GFR ( Amer) > 60 Est GFR (Non-Af Amer) 51 L Glucose 126 H Calcium 9.2 11/06/16 16:05 Stool - Stool - Final 11/06/16 16:05 Stool - Stool Stool Culture - Final C.albicans/C.dubliniensis Impressions: KUB X-Ray 11/04/16 14:40 IMPRESSION: NG tube in appropriate location. Other findings as above. Chest X-Ray 05/01/17 00:00 IMPRESSION: 1. Left lower lobe pneumonia versus marked atelectasis. 2. There is pulmonary vascular prominence with no brenda CHF. Assessment & Plan - Diagnosis (1) Acute and chronic respiratory failure with hypercapnia Is this a current diagnosis for this admission?: YesPlan: increase support via NIPPV (2) CHF (congestive heart failure) Qualifiers: Congestive heart failure type: diastolic Congestive heart failure chronicity: acute on chronic Qualified Code(s): I50.33 - Acute on chronic diastolic (congestive) heart failure Is this a current diagnosis for this admission?: Yes (3) COPD (chronic obstructive pulmonary disease) Is this a current diagnosis for this admission?: YesPlan: xopenex ipatrprium (4) Moderate to severe pulmonary hypertension Is this a current diagnosis for this admission?: Yes (5) Obesity hypoventilation syndrome Is this a current diagnosis for this admission?: Yes (6) Atrial fibrillation Qualifiers: Atrial fibrillation type: chronic Qualified Code(s): I48.2 - Chronic atrial fibrillation Is this a current diagnosis for this admission?: Yes (7) Tobacco dependency Is this a current diagnosis for this admission?: Yes - Time Time Spent: 50 to 70 Minutes
[2016-11-10] MEDS: ACETAMINOPHEN 325 MG TABLET PO PRN (21:18)
[2016-11-10] MEDS: ATORVASTATIN CALCIUM 40 MG TABLET PO SCH (21:18)
[2016-11-11] MEDS: LEVALBUTEROL HCL NEB 1.25 MG/3 ML AMPUL NEB SCH ×4 (02:27→20:05)
[2016-11-11] MEDS: IPRATROPIUM BROMIDE 0.02% NEB 0.5 MG/2.5 ML AMPUL NEB SCH ×4 (02:27→20:05)
[2016-11-11] MEDS: LEVOTHYROXINE SODIUM 0.15 MG TABLET PO SCH (05:52)
[2016-11-11] MEDS: LANSOPRAZOLE 30 MG TAB.RAP.DR PO SCH (05:52)
[2016-11-11 06:45] LABS: ARTERIAL BLOOD BASE EXCESS 0.1 mmol/L; ARTERIAL BLOOD O2 SATURATION 96.3 % (94-98)
[2016-11-11] MEDS: SILDENAFIL CITRATE 20 MG TABLET PO SCH ×3 (07:56→16:40)
--- NOTE | 2016-11-11 08:29 | PDOC PROGRESS REPORT ---
Subjective Progress Note for:: 11/11/16 Subjective:: The patient states to feel better. She would like to have a BiPAP mask off. Her O2 saturation on nasal cannula is about 90%. Her I&O negative. Discussed the anticoagulation. Advised patient that because of her AVMs I would not recommend going back on Coumadin or any blood thinners. On the other hand she does understand that there is a high chance of DVT PE and stroke. Physical Exam Vital Signs: Temp Pulse Resp BP Pulse Ox 97.4 F 68 17 121/63 96 11/11/16 07:55 11/11/16 07:55 11/11/16 07:55 11/11/16 07:55 11/11/16 07:55 Pulse Oximeter Continuous Start: 11/10/16 12: 01 Freq: RTQ4 Status: Active Document 11/11/16 07:53 LDA (Rec: 11/11/16 07:58 [email or web address] [email or web address]) Pulse Oximetry Assessment Oxygen Saturation (92-100) 94 Oxygen Delivery Method Bi-pap Fraction of Inspired Oxygen (FIO2) 35 Equipment Usage Equipment in Use Continuous SpO2 Machine # 3 Intake & Output 11/10/16 11/11/16 11/12/16 06:59 06:59 06:59 Intake Total 804 907 Output Total 1300 1525 Balance -496 -618 Weight 132 kg 132.1 kg General appearance: PRESENT: mild distress Eye exam: PRESENT: conjunctiva pink Neck exam: ABSENT: carotid bruit Respiratory exam: PRESENT: rhonchi Cardiovascular exam: PRESENT: irregular rhythm Pulses: PRESENT: +1 pedal pulses bilateral GI/Abdominal exam: PRESENT: normal bowel sounds, soft Extremities exam: PRESENT: tenderness Musculoskeletal exam: PRESENT: tenderness Neurological exam: PRESENT: alert, awake Results Laboratory Results: 11/10/16 04:49 11/10/16 04:49 11/10/16 11/11/16 11:21 06:25 Carbonic Acid 1.28 1.04 L HCO3/H2CO3 Ratio 22:1 22:1 ABG pH 7.45 7.46 H ABG pCO2 42.4 34.5 L ABG pO2 56.5 L 78.7 L ABG HCO3 28.7 H 23.7 ABG O2 Saturation 90.6 L 96.3 ABG Base Excess 4.3 0.1 FiO2 35% 35% Impressions: KUB X-Ray 04/26/17 14:40 IMPRESSION: NG tube in appropriate location. Other findings as above. Chest X-Ray 11/09/16 00:00 IMPRESSION: 1. Left lower lobe pneumonia versus marked atelectasis. 2. There is pulmonary vascular prominence with no brenda CHF. Assessment & Plan - Diagnosis (1) Acute upper gastrointestinal bleeding Is this a current diagnosis for this admission?: YesPlan: H&H is stable (2) Anemia associated with acute blood loss Is this a current diagnosis for this admission?: Yes (3) Hypotension due to blood loss Is this a current diagnosis for this admission?: YesPlan: Blood pressure is well-controlled off the dopamine drip and on Midodrin (4) Moderate to severe pulmonary hypertension Is this a current diagnosis for this admission?: YesPlan: Stable and controlled with meds (5) Atrial fibrillation Qualifiers: Atrial fibrillation type: chronic Qualified Code(s): I48.2 - Chronic atrial fibrillation Is this a current diagnosis for this admission?: YesPlan: Stable and rate controlled with medication (6) Obesity hypoventilation syndrome Is this a current diagnosis for this admission?: YesPlan: We will try to stop the BiPAP and use just the nasal cannula and possibly CPap at night (7) Obstructive sleep apnea Is this a current diagnosis for this admission?: YesPlan: We will try the C Pap
[2016-11-11] MEDS: POTASSIUM CHLORIDE 20 MEQ/15 ML UDCUP PO SCH (09:22)
[2016-11-11] MEDS: DOCUSATE SODIUM 100 MG CAPSULE PO SCH ×2 (09:23→17:00)
[2016-11-11] MEDS: FOLIC ACID 1 MG TABLET PO SCH (09:23)
[2016-11-11] MEDS: MULTIVITAMIN TABLET PO SCH (09:23)
[2016-11-11] MEDS: GABAPENTIN 300 MG CAPSULE PO SCH ×2 (09:23→21:17)
[2016-11-11] MEDS: FUROSEMIDE 40 MG TABLET PO SCH (09:23)
[2016-11-11] MEDS: THIAMINE HCL 100 MG TABLET PO SCH (09:23)
[2016-11-11] MEDS: ASPIRIN 81 MG TABLET, ENT COATED PO SCH (09:23)
[2016-11-11] MEDS: ATENOLOL 50 MG TABLET PO SCH (09:24)
[2016-11-11] MEDS: NICOTINE 21 MG/24 HR PATCH.TD24 TOP SCH (09:24)
[2016-11-11] MEDS: MIDODRINE HCL 5 MG TABLET PO SCH ×3 (09:24→17:00)
--- NOTE | 2016-11-11 12:31 | PDOC PROGRESS REPORT ---
Subjective Progress Note for:: 11/11/16 Subjective:: Patient much better today. She is much more alert and conversational. Patient currently alert and oriented 3. She is currently on bilevel therapy. Patient remains off dopamine drip. Telemetry strips shows atrial fibrillation. Blood pressure is more stable today. Patient tolerating increased dose of Midodrin. Patient currently maintaining oxygenation with nasal cannula oxygen supplementation. Telemetry shows atrial fibrillation but with controlled heart rate response. León Álvarez MD feels that chronic anticoagulation is contraindicated in this patient but patient understands increased risk of thromboembolic episodes.. Physical Exam Vital Signs: Temp Pulse Resp BP Pulse Ox 97.4 F 74 17 121/63 89 L 11/11/16 07:55 11/11/16 08:53 11/11/16 07:55 11/11/16 07:55 11/11/16 12:00 Pulse Oximeter Continuous Start: 11/10/16 12: 01 Freq: RTQ4 Status: Active Document 11/11/16 12:00 LDA (Rec: 11/11/16 12:16 LDA [email or web address]) Pulse Oximetry Assessment Oxygen Saturation (92-100) 89 Oxygen Flow Rate (L/min) 6 Oxygen Delivery Method Nasal Cannula Equipment Usage Equipment in Use Continuous SpO2 Machine # 3 Intake & Output 11/10/16 11/11/16 11/12/16 06:59 06:59 06:59 Intake Total 804 907 Output Total 1300 1525 Balance -496 -618 Weight 132 kg 132.1 kg Exam: GENERAL: well-nourished and in no acute distress. Alert and oriented x3 HEAD: Atraumatic, normocephalic. EYES: Pupils equal round and reactive to light, extraocular movements intact, sclera anicteric, conjunctiva are normal. ENT: TMs normal, nares patent, oropharynx clear without exudates. Moist mucous membranes. No oral ulcerations or bleeding gums noted NECK: supple without lymphadenopathy. Trachea is central. No cervical or axillary lymphadenopathy noted. Carotids are 2+, JVD WNL LUNGS: Respiration seems nonlabored, few bibasilar crackles and wheezing noted. No significant dullness noted on percussion. CHEST: Palpation of the chest wall shows no significant chest wall tenderness. No other significant abnormalities noted. HEART: [place], No PSH, 1/6 LAMINE aortic area, 1/6 rausch systolic murmur mitral area, no rubs, no gallops. ABDOMEN: Soft, no significant tenderness appreciated, normoactive bowel sounds. No guarding, no rebound. No rigidity noted . No masses appreciated. EXTREMITIES: Pedal pulses are 1-2+, no calf tenderness noted. No clubbing or cyanosis.2 + pedal edema noted, this is felt to be chronic with some element of lymphedema NEUROLOGICAL: Focused neurological exam showed no significant neurologic deficit. Normal speech, no focal weakness appreciated. PSYCH: Normal mood, normal affect. Judgment and insight within normal limits. SKIN: No significant ecchymosis, rash, ulcerations or signs of pruritus noted. MUSCULOSKELETAL EXAM: No significant joint swelling noted. Results Laboratory Results: 11/10/16 04:49 11/10/16 04:49 11/11/16 06:25 Carbonic Acid 1.04 L HCO3/H2CO3 Ratio 22:1 ABG pH 7.46 H ABG pCO2 34.5 L ABG pO2 78.7 L ABG HCO3 23.7 ABG O2 Saturation 96.3 ABG Base Excess 0.1 FiO2 35% Impressions: KUB X-Ray 11/04/16 14:40 IMPRESSION: NG tube in appropriate location. Other findings as above. Chest X-Ray 11/09/16 00:00 IMPRESSION: 1. Left lower lobe pneumonia versus marked atelectasis. 2. There is pulmonary vascular prominence with no brenda CHF. Assessment & Plan - Diagnosis (1) Arterial hypotension Qualifiers: Hypotension type: unspecified hypotension type Qualified Code(s): I95.9 - Hypotension, unspecified Is this a current diagnosis for this admission?: Yes (2) Obesity hypoventilation syndrome Is this a current diagnosis for this admission?: Yes (3) Obstructive sleep apnea Is this a current diagnosis for this admission?: Yes (4) Pulmonary hypertension Is this a current diagnosis for this admission?: Yes (5) Atrial fibrillation Qualifiers: Atrial fibrillation type: chronic Qualified Code(s): I48.2 - Chronic atrial fibrillation Is this a current diagnosis for this admission?: Yes (6) Respiratory failure Qualifiers: Chronicity: acute on chronic Respiratory failure complication: hypoxia and hypercapnia Qualified Code(s): J96.21 - Acute and chronic respiratory failure with hypoxia Is this a current diagnosis for this admission?: Yes (7) Cor pulmonale (chronic) Is this a current diagnosis for this admission?: Yes - Notes Notes: Arterial hypotension: Currently resolved. May consider reducing Midodrin dose at a later date. Obesity hypoventilation syndrome: Patient understands that she would need to lose some weight. Obstructive sleep apnea syndrome: Continue current positive noninvasive ventilation. Pulmonary hypertension: Related to obesity hypoventilation syndrome, obstructive sleep apnea and could be some intrinsic pulmonary disease. Neurologist following. Atrial fibrillation: Currently rate well controlled. Agree that there are contraindications to chronic anticoagulation. Respiratory failure: This is chronic secondary to obesity hypoventilation syndrome, obstructive sleep apnea and also some intrinsic pulmonary disease. Patient being followed by installer technician. Chronic cor pulmonale: Patient has significant enlargement of the right ventricle. This is most likely related to underlying obesity hypoventilation syndrome, obstructive sleep apnea with some contribution from diastolic dysfunction. - Time Time with patient: 15-25 minutes - CODE STATUS : was discussed, patient remains DO NOT RESUSCITATE. Surrogate decision-maker unchanged. Multiple medical problems were addressed.More than 50% of the time spent coordinating care, discussing management plans with involved caregivers. Management plans discussed with involved personnels. Medical decision making was of moderate to high complexity, patient's has multiple severe comorbidities.
[2016-11-11] MEDS: ATORVASTATIN CALCIUM 40 MG TABLET PO SCH (21:17)
[2016-11-11] MEDS: ACETAMINOPHEN 325 MG TABLET PO PRN (21:18)
[2016-11-12] MEDS: IPRATROPIUM BROMIDE 0.02% NEB 0.5 MG/2.5 ML AMPUL NEB SCH ×4 (02:29→19:24)
[2016-11-12] MEDS: LEVALBUTEROL HCL NEB 1.25 MG/3 ML AMPUL NEB SCH ×4 (02:29→19:24)
[2016-11-12 05:32] LABS: ABSOLUTE EOSINOPHILS # (AUTO) 0.8 10^3/uL (0.0-0.6); ABSOLUTE LYMPHOCYTES (AUTO) 0.7 10^3/uL (0.5-4.7); ABSOLUTE MONOCYTES (AUTO) 0.4 10^3/uL (0.1-1.4); ABSOLUTE NEUT (AUTO) 6.7 10^3/uL (1.7-8.2); BASOPHILS % (AUTO) 0.4 % (0-2); EOSINOPHILS % (AUTO) 9.2 % (0-6); HEMATOCRIT 29.1 % (36.0-47.0); HEMOGLOBIN 9.8 g/dL (12.0-15.5); HGB HCT DIFFERENCE 0.3; LYMPHOCYTES % (AUTO) 8.4 % (13-45); MEAN CORPUSCULAR HEMOGLOBIN 30.6 pg (27.0-33.4); MEAN CORPUSCULAR HGB CONC 33.5 g/dL (32.0-36.0); MEAN CORPUSCULAR VOLUME 91 fl (80-97); MONOCYTES % (AUTO) 4.3 % (3-13); RED BLOOD COUNT 3.19 10^6/uL (3.72-5.28); SEGMENTED NEUTROPHILS % (AUTO) 77.7 % (42-78); WHITE BLOOD COUNT 8.6 10^3/uL (4.0-10.5)
[2016-11-12] MEDS: LEVOTHYROXINE SODIUM 0.15 MG TABLET PO SCH (05:45)
[2016-11-12] MEDS: LANSOPRAZOLE 30 MG TAB.RAP.DR PO SCH (05:46)
[2016-11-12 05:56] LABS: ALANINE AMINOTRANSFERASE 29 U/L (9-52); ALBUMIN 2.3 g/dL (3.5-5.0); ALKALINE PHOSPHATASE 80 U/L (38-126); ANION GAP 10 (5-19); ASPARTATE AMINO TRANSFERASE 16 U/L (14-36); BILIRUBIN,DIRECT 0.7 mg/dL (0.0-0.4); BILIRUBIN,TOTAL 1.5 mg/dL (0.2-1.3); BLOOD UREA NITROGEN 60 mg/dL (7-20); CALCIUM 8.6 mg/dL (8.4-10.2); CARBON DIOXIDE 31 mmol/L (22-30); CHLORIDE 101 mmol/L (98-107); CREATININE RESULT 1.05 mg/dL (0.52-1.25); GLUCOSE 83 mg/dL (75-110); MAGNESIUM 1.7 mg/dL (1.6-2.3); POTASSIUM 3.6 mmol/L (3.6-5.0); SODIUM 141.8 mmol/L (137-145); TOTAL PROTEIN 4.6 g/dL (6.3-8.2)
[2016-11-12 07:16] LABS: ARTERIAL BLOOD BASE EXCESS 10.3 mmol/L; ARTERIAL BLOOD O2 SATURATION 94.7 % (94-98)
[2016-11-12] MEDS: SILDENAFIL CITRATE 20 MG TABLET PO SCH ×3 (08:09→16:43)
--- NOTE | 2016-11-12 08:31 | PDOC PROGRESS REPORT ---
Subjective Progress Note for:: 11/12/16 Subjective:: The patient is complaining about slightly more short of breath than usual. She did have some melanotic stool. Her H&H has dropped slightly. Her blood pressure is stable. Physical Exam Vital Signs: Temp Pulse Resp BP Pulse Ox 97.3 F 76 19 126/75 H 96 11/12/16 07:49 11/12/16 07:49 11/12/16 07:49 11/12/16 07:49 11/12/16 07:49 Pulse Oximeter Continuous Start: 11/10/16 12: 01 Freq: RTQ4 Status: Active Document 11/12/16 07:43 LDA (Rec: 11/12/16 07:52 LDA [email or web address]) Pulse Oximetry Assessment Oxygen Saturation (92-100) 93 Oxygen Delivery Method Bi-pap Fraction of Inspired Oxygen (FIO2) 40 Equipment Usage Equipment in Use Continuous SpO2 Machine # 3 Intake & Output 11/11/16 11/12/16 11/13/16 06:59 06:59 06:59 Intake Total 907 783 Output Total 1525 975 Balance -618 -192 Weight 132.1 kg 132.9 kg General appearance: PRESENT: mild distress Eye exam: PRESENT: conjunctiva pink Neck exam: ABSENT: carotid bruit Respiratory exam: PRESENT: tachypnea Cardiovascular exam: PRESENT: irregular rhythm Pulses: PRESENT: +1 pedal pulses bilateral Vascular exam: PRESENT: pallor GI/Abdominal exam: PRESENT: normal bowel sounds, soft Extremities exam: PRESENT: tenderness Musculoskeletal exam: PRESENT: tenderness Results Laboratory Results: 11/12/16 05:17 11/12/16 05:17 11/12/16 11/12/16 11/12/16 05:17 05:17 05:17 WBC 8.6 RBC 3.19 L Hgb 9.8 L Hct 29.1 L MCV 91 MCH 30.6 MCHC 33.5 RDW 18.0 H Plt Count 116 L Seg Neutrophils % 77.7 Lymphocytes % 8.4 L Monocytes % 4.3 Eosinophils % 9.2 H Basophils % 0.4 Absolute Neutrophils 6.7 Absolute Lymphocytes 0.7 Absolute Monocytes 0.4 Absolute Eosinophils 0.8 H Absolute Basophils 0.0 Carbonic Acid HCO3/H2CO3 Ratio ABG pH ABG pCO2 ABG pO2 ABG HCO3 ABG O2 Saturation ABG Base Excess FiO2 Sodium 141.8 Potassium 3.6 Chloride 101 Carbon Dioxide 31 H Anion Gap 10 BUN 60 H Creatinine 1.05 Est GFR ( Amer) > 60 Est GFR (Non-Af Amer) 52 L Glucose 83 Calcium 8.6 Magnesium 1.7 Total Bilirubin 1.5 H AST 16 ALT 29 Alkaline Phosphatase 80 Total Protein 4.6 L Albumin 2.3 L TSH 3.06 11/12/16 06:40 WBC RBC Hgb Hct MCV MCH MCHC RDW Plt Count Seg Neutrophils % Lymphocytes % Monocytes % Eosinophils % Basophils % Absolute Neutrophils Absolute Lymphocytes Absolute Monocytes Absolute Eosinophils Absolute Basophils Carbonic Acid 1.60 H HCO3/H2CO3 Ratio 22:1 ABG pH 7.45 ABG pCO2 53.1 H ABG pO2 71.3 L ABG HCO3 35.7 H ABG O2 Saturation 94.7 ABG Base Excess 10.3 FiO2 40% Sodium Potassium Chloride Carbon Dioxide Anion Gap BUN Creatinine Est GFR ( Amer) Est GFR (Non-Af Amer) Glucose Calcium Magnesium Total Bilirubin AST ALT Alkaline Phosphatase Total Protein Albumin TSH Impressions: KUB X-Ray 11/04/16 14:40 IMPRESSION: NG tube in appropriate location. Other findings as above. Chest X-Ray 11/09/16 00:00 IMPRESSION: 1. Left lower lobe pneumonia versus marked atelectasis. 2. There is pulmonary vascular prominence with no brenda CHF. Assessment & Plan - Diagnosis (1) Acute upper gastrointestinal bleeding Is this a current diagnosis for this admission?: YesPlan: The patient again had 2 episodes of melanotic stools. We'll discuss with gastroenterology and consider transfer (2) Anemia associated with acute blood loss Is this a current diagnosis for this admission?: YesPlan: H&H is down slightly 9.8 from 10.8 (3) Hypotension due to blood loss Is this a current diagnosis for this admission?: YesPlan: Off the dopamine drip (4) Moderate to severe pulmonary hypertension Is this a current diagnosis for this admission?: YesPlan: Controlled with medications. (5) Atrial fibrillation Qualifiers: Atrial fibrillation type: chronic Qualified Code(s): I48.2 - Chronic atrial fibrillation Is this a current diagnosis for this admission?: YesPlan: Stable and rate controlled with medication (6) Obesity hypoventilation syndrome Is this a current diagnosis for this admission?: YesPlan: We will try to stop the BiPAP and use just the nasal cannula and possibly CPap at night (7) Obstructive sleep apnea Is this a current diagnosis for this admission?: YesPlan: We will try the C Pap
[2016-11-12] MEDS: FUROSEMIDE 40 MG TABLET PO SCH (10:08)
[2016-11-12] MEDS: POTASSIUM CHLORIDE 20 MEQ/15 ML UDCUP PO SCH (10:08)
[2016-11-12] MEDS: FOLIC ACID 1 MG TABLET PO SCH (10:09)
[2016-11-12] MEDS: MIDODRINE HCL 5 MG TABLET PO SCH ×3 (10:09→17:27)
[2016-11-12] MEDS: ASPIRIN 81 MG TABLET, ENT COATED PO SCH (10:09)
[2016-11-12] MEDS: MULTIVITAMIN TABLET PO SCH (10:09)
[2016-11-12] MEDS: GABAPENTIN 300 MG CAPSULE PO SCH ×2 (10:09→22:50)
[2016-11-12] MEDS: THIAMINE HCL 100 MG TABLET PO SCH (10:09)
[2016-11-12] MEDS: DOCUSATE SODIUM 100 MG CAPSULE PO SCH ×2 (10:09→17:27)
[2016-11-12] MEDS: NICOTINE 21 MG/24 HR PATCH.TD24 TOP SCH (10:10)
[2016-11-12] MEDS: ATENOLOL 50 MG TABLET PO SCH (10:10)
--- NOTE | 2016-11-12 12:07 | PDOC TRANSFER SUMMARY ---
General Admission Date/PCP: 11/03/16 23:03 MICHEAL BARRY MD Admission Date: 11/03/16 Transfer Date: 11/12/16 Accepting Facility: [facility] Accepting Physician: GI Resuscitation Status: Do Not Resuscitate - Transfer Diagnosis (1) Acute upper gastrointestinal bleeding Is this a current diagnosis for this admission?: YesDiagnosis Summary: The patient was admitted with the upper GI bleed. She has received blood transfusions. She has received IV fluid resuscitation because of hypotension. She was taking to the operating room and had an upper endoscopy which showed AVMs which were cauterized. Unfortunately the patient could not be sedated because of her blood pressure. The patient has received additional blood transfusions and IV fluid boluses. She was seen by cardiology and started on dopamine drip. She was eventually started on Midrin after consultation with the nephrology and was eventually weaned off the dopamine drip. She did well over the next couple of days with stable H&H. Unfortunately she started having melanotic stools with a drop in the H&H. Because of the multiple significant comorbidities including atrial fibrillation severe pulmonary hypertension morbid obesity difficulty staying off the BiPAP the case was discussed with the employment agency manager who has suggested transferring the patient to a tertiary care center with possible bleeding scan and upper and lower endoscopy for further treatment. The case was discussed with the employment agency manager at [facility] who has accepted the case. (2) Anemia associated with acute blood loss Is this a current diagnosis for this admission?: Yes (3) Hypotension due to blood loss Is this a current diagnosis for this admission?: Yes (4) Moderate to severe pulmonary hypertension Is this a current diagnosis for this admission?: Yes (5) Atrial fibrillation Is this a current diagnosis for this admission?: Yes (6) Obesity hypoventilation syndrome Is this a current diagnosis for this admission?: Yes (7) Obstructive sleep apnea Is this a current diagnosis for this admission?: Yes - Transfer Medications Home Medications: Furosemide [Lasix] 40 mg PO DAILY 11/04/16 Multivitamin [Daily Multiple Vitamin] 1 tab PO DAILY 11/04/16 Nicotine [Nicoderm 21 mg/24 Hr Transderm Patch] 1 patch TOP DAILY 11/04/16 Potassium Chloride [Klor-Con 10 Meq Tablet.sa] 10 meq PO DAILY 11/04/16 Transfer Medications: Current Medications Acetaminophen (Tylenol 325 Mg Tablet) 650 mg PO Q8HP PRN PRN Reason: FOR PAIN Stop: 12/04/16 09:20 Last Admin: 11/11/16 21:18 Dose: 650 mg Al Hydrox/Mg Hydrox/Simethicone (Maalox Plus Susp 30 Udcup) 30 ml PO Q6HP PRN PRN Reason: HEARTBURN Stop: 12/04/16 09:20 Aspirin (Ecotrin 81 Mg Ec Tablet) 81 mg PO DAILY BUCK Stop: 12/04/16 09:59 Last Admin: 11/12/16 10:09 Dose: 81 mg Atenolol (Tenormin 50 Mg Tablet) 25 mg PO DAILY BUCK Stop: 12/04/16 09:59 Last Admin: 11/12/16 10:10 Dose: Not Given Atorvastatin Calcium (Lipitor 40 Mg Tablet) 40 mg PO QHS BUCK Stop: 12/04/16 21:59 Last Admin: 11/11/16 21:17 Dose: 40 mg Docusate Sodium (Colace 100 Mg Capsule) 100 mg PO BID BUCK Stop: 12/04/16 09:59 Last Admin: 11/12/16 10:09 Dose: 100 mg Folic Acid (Folvite 1 Mg Tablet) 1 mg PO DAILY BUCK Stop: 12/04/16 09:59 Last Admin: 11/12/16 10:09 Dose: 1 mg Furosemide (Lasix 40 Mg Tablet) 40 mg PO DAILY BUCK Stop: 12/04/16 09:59 Last Admin: 11/12/16 10:08 Dose: 40 mg Gabapentin (Neurontin 300 Mg Capsule) 300 mg PO Q12 BUCK Stop: 12/04/16 09:59 Last Admin: 11/12/16 10:09 Dose: 300 mg Ipratropium Henderson (Atrovent 0.02% Neb 0.5 Mg/2.5 Ml Ampul) 0.5 mg NEB RTQ6 BUCK Stop: 12/04/16 01:59 Last Admin: 11/12/16 07:43 Dose: 0.5 mg Lansoprazole (Prevacid 30 Mg Odt Tablet) 30 mg PO DAILY@0600 BUCK Stop: 12/07/16 05:59 Last Admin: 11/12/16 05:46 Dose: 30 mg Levalbuterol HCl (Xopenex Neb 1.25 Mg/3 Ml Ampul) 1.25 mg NEB RTQ6 BUCK Stop: 12/04/16 01:59 Last Admin: 11/12/16 07:43 Dose: 1.25 mg Levothyroxine Sodium (Synthroid 0.15 Mg Tablet) 0.15 mg PO Q6AM BUCK Stop: 12/04/16 05:59 Last Admin: 11/12/16 05:45 Dose: 0.15 mg Midodrine (Proamatine 5 Mg Tablet) 5 mg PO TID BUCK Stop: 12/09/16 13:59 Last Admin: 11/12/16 10:09 Dose: 5 mg Multivitamins (Tab-A-Isabella (Multiple Vitamin) Tablet) 1 tab PO DAILY BUCK Stop: 12/04/16 09:59 Last Admin: 11/12/16 10:09 Dose: 1 tab Nicotine (Nicoderm 21 Mg/24 Hr Transderm Patch) 1 each TOP DAILY BUCK Stop: 12/07/16 09:59 Last Admin: 11/12/16 10:10 Dose: Not Given Potassium Chloride (Kaon-Cl 20 Meq/15 Ml Udcup) 10 meq PO DAILY BUCK Stop: 12/05/16 09:59 Last Admin: 11/12/16 10:08 Dose: 10 meq Sildenafil Citrate (Revatio 20 Mg Tablet) 20 mg PO MEALS BUCK Stop: 12/04/16 07:59 Last Admin: 11/12/16 11:38 Dose: 20 mg Thiamine HCl (Thiamine 100 Mg Tablet) 100 mg PO DAILY BUCK Stop: 12/04/16 09:59 Last Admin: 11/12/16 10:09 Dose: 100 mg - Allergies Allergies/Adverse Reactions: codeine [Codeine] Adverse Reaction (Mild, Verified 11/04/16 04:23) VOMITING morphine Adverse Reaction (Verified 11/04/16 04:23) oxycodone [From Percocet] Adverse Reaction (Verified 11/04/16 04:23) prednisone Adverse Reaction (Verified 11/04/16 04:23) - Diet/Activity Discharge Diet: As Tolerated Hospital Course Hospital Course: The the patient was admitted with an upper GI bleed. She appeared to be hypotensive and hypovolemic shock. She was given IV fluid boluses. She was taken to the operating room to have an upper endoscopy since the employment agency manager could not do conscious sedation. She underwent an upper endoscopy with cauterization of several of AVMs. She has received multiple blood transfusions. She has been started on dopamine drip. After the stabilization of her blood pressure her H&H has stabilized. She was seen by the cardiology and pulmonology. Unfortunately the patient cannot be weaned off the BiPAP because of her COPD and morbid obesity with hypoventilation syndrome. Because of multiple comorbidities the GI did not feel comfortable proceeding with any further interventions and have recommended a tertiary center. Physical Exam Vital Signs: Temp Pulse Resp BP Pulse Ox 97.3 F 69 19 126/75 H 96 11/12/16 07:49 11/12/16 10:00 11/12/16 07:49 11/12/16 07:49 11/12/16 07:49 Pulse Oximeter Continuous Start: 11/10/16 12: 01 Freq: RTQ4 Status: Active Document 11/12/16 07:43 LDA (Rec: 11/12/16 07:52 LDA [email or web address]) Pulse Oximetry Assessment Oxygen Saturation (92-100) 93 Oxygen Delivery Method Bi-pap Fraction of Inspired Oxygen (FIO2) 40 Equipment Usage Equipment in Use Continuous SpO2 Machine # 3 Intake & Output 11/11/16 11/12/16 11/13/16 06:59 06:59 06:59 Intake Total 907 783 Output Total 1525 975 Balance -618 -192 Weight 132.1 kg 132.9 kg General appearance: PRESENT: mild distress Head exam: PRESENT: atraumatic Eye exam: PRESENT: conjunctiva pink Neck exam: ABSENT: carotid bruit Respiratory exam: PRESENT: rhonchi Cardiovascular exam: PRESENT: irregular rhythm Pulses: PRESENT: +1 pedal pulses bilateral GI/Abdominal exam: PRESENT: soft Extremities exam: PRESENT: tenderness Musculoskeletal exam: PRESENT: tenderness Results Laboratory Results: 11/12/16 05:17 11/12/16 05:17 11/12/16 11/12/16 11/12/16 05:17 05:17 05:17 WBC 8.6 RBC 3.19 L Hgb 9.8 L Hct 29.1 L MCV 91 MCH 30.6 MCHC 33.5 RDW 18.0 H Plt Count 116 L Seg Neutrophils % 77.7 Lymphocytes % 8.4 L Monocytes % 4.3 Eosinophils % 9.2 H Basophils % 0.4 Absolute Neutrophils 6.7 Absolute Lymphocytes 0.7 Absolute Monocytes 0.4 Absolute Eosinophils 0.8 H Absolute Basophils 0.0 Carbonic Acid HCO3/H2CO3 Ratio ABG pH ABG pCO2 ABG pO2 ABG HCO3 ABG O2 Saturation ABG Base Excess FiO2 Sodium 141.8 Potassium 3.6 Chloride 101 Carbon Dioxide 31 H Anion Gap 10 BUN 60 H Creatinine 1.05 Est GFR ( Amer) > 60 Est GFR (Non-Af Amer) 52 L Glucose 83 Calcium 8.6 Magnesium 1.7 Total Bilirubin 1.5 H AST 16 ALT 29 Alkaline Phosphatase 80 Total Protein 4.6 L Albumin 2.3 L TSH 3.06 11/12/16 06:40 WBC RBC Hgb Hct MCV MCH MCHC RDW Plt Count Seg Neutrophils % Lymphocytes % Monocytes % Eosinophils % Basophils % Absolute Neutrophils Absolute Lymphocytes Absolute Monocytes Absolute Eosinophils Absolute Basophils Carbonic Acid 1.60 H HCO3/H2CO3 Ratio 22:1 ABG pH 7.45 ABG pCO2 53.1 H ABG pO2 71.3 L ABG HCO3 35.7 H ABG O2 Saturation 94.7 ABG Base Excess 10.3 FiO2 40% Sodium Potassium Chloride Carbon Dioxide Anion Gap BUN Creatinine Est GFR ( Amer) Est GFR (Non-Af Amer) Glucose Calcium Magnesium Total Bilirubin AST ALT Alkaline Phosphatase Total Protein Albumin TSH Impressions: KUB X-Ray 11/04/16 14:40 IMPRESSION: NG tube in appropriate location. Other findings as above. Chest X-Ray 11/09/16 00:00 IMPRESSION: 1. Left lower lobe pneumonia versus marked atelectasis. 2. There is pulmonary vascular prominence with no brenda CHF. Plan Discharge Plan: Transfer to tertiary care for further evaluation and treatments
--- NOTE | 2016-11-12 14:31 | PDOC PROGRESS REPORT ---
Subjective Progress Note for:: 11/12/16 Subjective:: patient had been stable for 24 hours no further bleeding until this am, has had melena again patient did not have a bleeding scan due to respiratory issues on BIPAP and radiology not comfortable to have patient have bleeding scan. sedation is also an issue and anesthesia not willing to sedate the patient had previous egd and had several AVM's cauterized the intent of the bleeding scan is to try and localize the bleeding site so that a difinitive procedure can be performed In my discussion with the attending physician, patient is high risk and should be managed at a tertiary institution Physical Exam Vital Signs: Temp Pulse Resp BP Pulse Ox 97.6 F 81 22 H 129/62 H 96 11/12/16 11:34 11/12/16 13:45 11/12/16 13:45 11/12/16 11:34 11/12/16 13:45 Pulse Oximeter Continuous Start: 11/10/16 12: 01 Freq: RTQ4 Status: Active Document 11/12/16 12:00 LDA (Rec: 11/12/16 12:06 LDA [email or web address]) Pulse Oximetry Assessment Oxygen Saturation (92-100) 93 Fraction of Inspired Oxygen (FIO2) 40 Equipment Usage Equipment in Use Continuous SpO2 Machine # 3 Intake & Output 11/11/16 11/12/16 11/13/16 06:59 06:59 06:59 Intake Total 907 783 318 Output Total 1525 975 200 Balance -618 -192 118 Weight 132.1 kg 132.9 kg General appearance: PRESENT: no acute distress, morbidly obese Head exam: PRESENT: atraumatic, normocephalic Eye exam: PRESENT: EOMI, PERRLA. ABSENT: conjunctival injection, nystagmus Mouth exam: PRESENT: moist Throat exam: ABSENT: tonsillar exudate, tonsillogmegaly Neck exam: ABSENT: meningismus, tenderness, thyromegaly Respiratory exam: PRESENT: accessory muscle use, symmetrical, tachypnea. ABSENT : wheezes Cardiovascular exam: PRESENT: RRR, +S1, +S2 GI/Abdominal exam: PRESENT: soft. ABSENT: rebound, rigid, tenderness Extremities exam: ABSENT: joint swelling Neurological exam: PRESENT: oriented to time, oriented to situation, reflexes normal Skin exam: PRESENT: normal color. ABSENT: mottled, urticaria, vesicles Results Laboratory Results: 11/12/16 05:17 11/12/16 05:17 11/12/16 11/12/16 11/12/16 05:17 05: 05:17 WBC 8.6 RBC 3.19 L Hgb 9.8 L Hct 29.1 L MCV 91 MCH 30.6 MCHC 33.5 RDW 18.0 H Plt Count 116 L Seg Neutrophils % 77.7 Lymphocytes % 8.4 L Monocytes % 4.3 Eosinophils % 9.2 H Basophils % 0.4 Absolute Neutrophils 6.7 Absolute Lymphocytes 0.7 Absolute Monocytes 0.4 Absolute Eosinophils 0.8 H Absolute Basophils 0.0 Carbonic Acid HCO3/H2CO3 Ratio ABG pH ABG pCO2 ABG pO2 ABG HCO3 ABG O2 Saturation ABG Base Excess FiO2 Sodium 141.8 Potassium 3.6 Chloride 101 Carbon Dioxide 31 H Anion Gap 10 BUN 60 H Creatinine 1.05 Est GFR ( Amer) > 60 Est GFR (Non-Af Amer) 52 L Glucose 83 Calcium 8.6 Magnesium 1.7 Total Bilirubin 1.5 H AST 16 ALT 29 Alkaline Phosphatase 80 Total Protein 4.6 L Albumin 2.3 L TSH 3.06 11/12/16 06:40 WBC RBC Hgb Hct MCV MCH MCHC RDW Plt Count Seg Neutrophils % Lymphocytes % Monocytes % Eosinophils % Basophils % Absolute Neutrophils Absolute Lymphocytes Absolute Monocytes Absolute Eosinophils Absolute Basophils Carbonic Acid 1.60 H HCO3/H2CO3 Ratio 22:1 ABG pH 7.45 ABG pCO2 53.1 H ABG pO2 71.3 L ABG HCO3 35.7 H ABG O2 Saturation 94.7 ABG Base Excess 10.3 FiO2 40% Sodium Potassium Chloride Carbon Dioxide Anion Gap BUN Creatinine Est GFR ( Amer) Est GFR (Non-Af Amer) Glucose Calcium Magnesium Total Bilirubin AST ALT Alkaline Phosphatase Total Protein Albumin TSH Impressions: KUB X-Ray 11/04/16 14:40 IMPRESSION: NG tube in appropriate location. Other findings as above. Chest X-Ray 11/09/16 00:00 IMPRESSION: 1. Left lower lobe pneumonia versus marked atelectasis. 2. There is pulmonary vascular prominence with no brenda CHF. Assessment & Plan - Diagnosis (1) Acute upper gastrointestinal bleeding Is this a current diagnosis for this admission?: YesPlan: GI bleeding has resumed previously done EGD with cauterization of AVM was done patient was stable for about24- 48 hours now with rebleed, I would prefer to try and localize the lesion prior to undertaking another procedure moreover since anesthesia is not comfortable to provide anesthesia, she would be at high risk of respiratory compromise with conscious sedation she would be better managed at a tertiary institution, agreeable with potential transfer as discussed in this as well as previous documentation - Time Time Spent with patient: 25-34 minutes
--- NOTE | 2016-11-12 20:05 | PDOC PROGRESS REPORT ---
Subjective Progress Note for:: 11/12/16 Subjective:: Patient much better but has developed melena and is being transferred to tertiary care. She is currently on bilevel therapy. drip. Telemetry strips shows atrial fibrillation, heart rate is well controlled. Blood pressure is stable. Patient tolerating increased dose of Midodrin. Patient currently maintaining oxygenation. Telemetry shows atrial fibrillation but with controlled heart rate response. Physical Exam Vital Signs: Temp Pulse Resp BP Pulse Ox 97.6 F 81 22 H 129/62 H 96 11/12/16 11:34 11/12/16 13:45 11/12/16 13:45 11/12/16 11:34 11/12/16 13:45 Pulse Oximeter Continuous Start: 11/10/16 12: 01 Freq: RTQ4 Status: Active Document 11/12/16 12:00 LDA (Rec: 11/12/16 12:06 LDA [email or web address]) Pulse Oximetry Assessment Oxygen Saturation (92-100) 93 Fraction of Inspired Oxygen (FIO2) 40 Equipment Usage Equipment in Use Continuous SpO2 Machine # 3 Intake & Output 11/11/16 11/12/16 11/13/16 06:59 06:59 06:59 Intake Total 907 783 318 Output Total 1525 975 200 Balance -618 -192 118 Weight 132.1 kg 132.9 kg Exam: GENERAL: well-nourished and in no acute distress. Alert and oriented x3 HEAD: Atraumatic, normocephalic. EYES: Pupils equal round and reactive to light, extraocular movements intact, sclera anicteric, conjunctiva are normal. ENT: TMs normal, nares patent, oropharynx clear without exudates. Moist mucous membranes. No oral ulcerations or bleeding gums noted NECK: supple without lymphadenopathy. Trachea is central. No cervical or axillary lymphadenopathy noted. Carotids are 2+, JVD WNL LUNGS: Respiration seems nonlabored, no significant accessory muscle action noted. Few bibasilar fine crackles and wheezing noted. CHEST: Palpation of the chest wall shows no significant chest wall tenderness. No other significant abnormalities noted. HEART: [place] [employer] [facility], No PSH, 1/6 LAMINE aortic area, 1/6 rausch systolic murmur mitral area, no rubs, no gallops. ABDOMEN: Soft, no significant tenderness appreciated, normoactive bowel sounds. No guarding, no rebound. No rigidity noted . No masses appreciated. EXTREMITIES: Pedal pulses are 1-2+, no calf tenderness noted. No clubbing or cyanosis.1-2 + pedal edema noted. Some chronic lymphedema noted NEUROLOGICAL: Focused neurological exam showed no significant neurologic deficit. Normal speech, no focal weakness appreciated. PSYCH: Normal mood, normal affect. Judgment and insight within normal limits. SKIN: No significant ecchymosis, rash, ulcerations or signs of pruritus noted. MUSCULOSKELETAL EXAM: No significant joint swelling noted. Results Laboratory Results: 11/12/16 05:11/12/16 05:11/12/16 11/12/16 11/12/16 05: 05: 05:17 WBC 8.6 RBC 3.19 L Hgb 9.8 L Hct 29.1 L MCV 91 MCH 30.6 MCHC 33.5 RDW 18.0 H Plt Count 116 L Seg Neutrophils % 77.7 Lymphocytes % 8.4 L Monocytes % 4.3 Eosinophils % 9.2 H Basophils % 0.4 Absolute Neutrophils 6.7 Absolute Lymphocytes 0.7 Absolute Monocytes 0.4 Absolute Eosinophils 0.8 H Absolute Basophils 0.0 Carbonic Acid HCO3/H2CO3 Ratio ABG pH ABG pCO2 ABG pO2 ABG HCO3 ABG O2 Saturation ABG Base Excess FiO2 Sodium 141.8 Potassium 3.6 Chloride 101 Carbon Dioxide 31 H Anion Gap 10 BUN 60 H Creatinine 1.05 Est GFR ( Amer) > 60 Est GFR (Non-Af Amer) 52 L Glucose 83 Calcium 8.6 Magnesium 1.7 Total Bilirubin 1.5 H AST 16 ALT 29 Alkaline Phosphatase 80 Total Protein 4.6 L Albumin 2.3 L TSH 3.06 11/12/16 06:40 WBC RBC Hgb Hct MCV MCH MCHC RDW Plt Count Seg Neutrophils % Lymphocytes % Monocytes % Eosinophils % Basophils % Absolute Neutrophils Absolute Lymphocytes Absolute Monocytes Absolute Eosinophils Absolute Basophils Carbonic Acid 1.60 H HCO3/H2CO3 Ratio 22:1 ABG pH 7.45 ABG pCO2 53.1 H ABG pO2 71.3 L ABG HCO3 35.7 H ABG O2 Saturation 94.7 ABG Base Excess 10.3 FiO2 40% Sodium Potassium Chloride Carbon Dioxide Anion Gap BUN Creatinine Est GFR ( Amer) Est GFR (Non-Af Amer) Glucose Calcium Magnesium Total Bilirubin AST ALT Alkaline Phosphatase Total Protein Albumin TSH Impressions: KUB X-Ray 11/04/16 14:40 IMPRESSION: NG tube in appropriate location. Other findings as above. Chest X-Ray 11/09/16 00:00 IMPRESSION: 1. Left lower lobe pneumonia versus marked atelectasis. 2. There is pulmonary vascular prominence with no brenda CHF. Assessment & Plan - Diagnosis (1) Arterial hypotension Qualifiers: Hypotension type: unspecified hypotension type Qualified Code(s): I95.9 - Hypotension, unspecified Is this a current diagnosis for this admission?: Yes (2) Obesity hypoventilation syndrome Is this a current diagnosis for this admission?: Yes (3) Obstructive sleep apnea Is this a current diagnosis for this admission?: Yes (4) Pulmonary hypertension Is this a current diagnosis for this admission?: Yes (5) Atrial fibrillation Qualifiers: Atrial fibrillation type: chronic Qualified Code(s): I48.2 - Chronic atrial fibrillation Is this a current diagnosis for this admission?: Yes (6) Respiratory failure Qualifiers: Chronicity: acute on chronic Respiratory failure complication: hypoxia and hypercapnia Qualified Code(s): J96.21 - Acute and chronic respiratory failure with hypoxia Is this a current diagnosis for this admission?: Yes (7) Cor pulmonale (chronic) Is this a current diagnosis for this admission?: Yes - Notes Notes: Patient today was noted to have melanotic stools. Patient evaluated by GI. Patient to be transferred to tertiary care. Arterial hypotension: Currently resolved. May consider reducing Midodrin dose at a later date. Obesity hypoventilation syndrome: Patient understands that she would need to lose some weight. Obstructive sleep apnea syndrome: Continue current positive noninvasive ventilation. Pulmonary hypertension: Related to obesity hypoventilation syndrome, obstructive sleep apnea and could be some intrinsic pulmonary disease. Neurologist following. Atrial fibrillation: Currently rate well controlled. Agree that there are contraindications to chronic anticoagulation. Respiratory failure: This is chronic secondary to obesity hypoventilation syndrome, obstructive sleep apnea and also some intrinsic pulmonary disease. 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 Chronic cor pulmonale: Patient has significant enlargement of the right ventricle. This is most likely related to underlying obesity hypoventilation syndrome, obstructive sleep apnea with some contribution from diastolic dysfunction. Patient has remained stable from cardiac standpoint. We will be happy to follow patient in the office for both cardiac and sleep problems. - Time Time with patient: 15-25 minutes - CODE STATUS : was discussed, patient remains DO NOT RESUSCITATE. Surrogate decision-maker unchanged. Multiple medical problems were addressed.More than 50% of the time spent coordinating care, discussing management plans with involved caregivers. Management plans discussed with involved personnels. Medical decision making was of moderate to high complexity, patient's has multiple severe comorbidities. Medications reviewed and adjusted accordingly: Yes
[2016-11-12] MEDS: ATORVASTATIN CALCIUM 40 MG TABLET PO SCH (22:50)
[2016-11-12] MEDS: ACETAMINOPHEN 325 MG TABLET PO PRN (23:03)
[2016-11-13] MEDS: IPRATROPIUM BROMIDE 0.02% NEB 0.5 MG/2.5 ML AMPUL NEB SCH ×4 (01:57→20:11)
[2016-11-13] MEDS: LEVALBUTEROL HCL NEB 1.25 MG/3 ML AMPUL NEB SCH ×4 (01:57→20:11)
[2016-11-13 04:48] LABS: ABSOLUTE BASOPHILS # (AUTO) 0.1 10^3/uL (0.0-0.2); ABSOLUTE EOSINOPHILS # (AUTO) 0.7 10^3/uL (0.0-0.6); ABSOLUTE LYMPHOCYTES (AUTO) 0.7 10^3/uL (0.5-4.7); ABSOLUTE MONOCYTES (AUTO) 0.4 10^3/uL (0.1-1.4); ABSOLUTE NEUT (AUTO) 5.7 10^3/uL (1.7-8.2); BASOPHILS % (AUTO) 0.9 % (0-2); EOSINOPHILS % (AUTO) 9.7 % (0-6); HEMATOCRIT 28.2 % (36.0-47.0); HEMOGLOBIN 9.3 g/dL (12.0-15.5); HGB HCT DIFFERENCE -0.3; LYMPHOCYTES % (AUTO) 9.3 % (13-45); MEAN CORPUSCULAR HEMOGLOBIN 30.7 pg (27.0-33.4); MEAN CORPUSCULAR HGB CONC 32.9 g/dL (32.0-36.0); RED BLOOD COUNT 3.03 10^6/uL (3.72-5.28); RED CELL DISTRIBUTION WIDTH 18.7 % (11.5-14.0); SEGMENTED NEUTROPHILS % (AUTO) 75.1 % (42-78); WHITE BLOOD COUNT 7.6 10^3/uL (4.0-10.5)
[2016-11-13 04:49] LABS: MEAN CORPUSCULAR VOLUME 93 fl (80-97)
[2016-11-13 05:01] LABS: ALANINE AMINOTRANSFERASE 30 U/L (9-52); ALBUMIN 2.2 g/dL (3.5-5.0); ALKALINE PHOSPHATASE 75 U/L (38-126); ANION GAP 11 (5-19); ASPARTATE AMINO TRANSFERASE 15 U/L (14-36); BILIRUBIN,DIRECT 0.7 mg/dL (0.0-0.4); BILIRUBIN,TOTAL 1.3 mg/dL (0.2-1.3); BLOOD UREA NITROGEN 54 mg/dL (7-20); CALCIUM 8.6 mg/dL (8.4-10.2); CARBON DIOXIDE 29 mmol/L (22-30); CHLORIDE 102 mmol/L (98-107); CREATININE RESULT 0.96 mg/dL (0.52-1.25); GLUCOSE 85 mg/dL (75-110); POTASSIUM 3.6 mmol/L (3.6-5.0); SODIUM 141.7 mmol/L (137-145); TOTAL PROTEIN 4.4 g/dL (6.3-8.2)
[2016-11-13 05:52] LABS: ARTERIAL BLOOD BASE EXCESS 9.3 mmol/L; ARTERIAL BLOOD O2 SATURATION 93.6 % (94-98)
[2016-11-13] MEDS: LEVOTHYROXINE SODIUM 0.15 MG TABLET PO SCH (06:08)
[2016-11-13] MEDS: LANSOPRAZOLE 30 MG TAB.RAP.DR PO SCH (06:08)
[2016-11-13] MEDS: SILDENAFIL CITRATE 20 MG TABLET PO SCH ×3 (08:20→16:37)
[2016-11-13] MEDS: ACETAMINOPHEN 325 MG TABLET PO PRN ×2 (08:24→16:36)
--- NOTE | 2016-11-13 08:55 | PDOC PROGRESS REPORT ---
Subjective Progress Note for:: 11/13/16 Subjective:: The patient states to feel the same. She is having hard time maintaining her oxygenation without the BiPAP. She is getting very short of breath and tachypneic. Her saturation on nasal cannula is anywhere between 88-90% There were no melanotic stools through the night but her H&H has decreased. She long discussion about need to transfer to a tertiary care. Physical Exam Vital Signs: Temp Pulse Resp BP Pulse Ox 97.6 F 78 20 121/64 98 11/13/16 07:36 11/13/16 08:31 11/13/16 07:36 11/13/16 07:36 11/13/16 07:36 Pulse Oximeter Continuous Start: 11/10/16 12: 01 Freq: RTQ4 Status: Active Document 11/13/16 04:00 STI (Rec: 11/13/16 04:12 STI [email or web address]) Pulse Oximetry Assessment Oxygen Saturation (92-100) 90 Oxygen Delivery Method Bi-pap Fraction of Inspired Oxygen (FIO2) 40 Equipment Usage Equipment in Use Continuous SpO2 Machine # 3 Intake & Output 11/12/16 11/13/16 11/14/16 06:59 06:59 06:59 Intake Total 783 771 Output Total 975 1125 Balance -192 -354 Weight 132.9 kg 130.5 kg General appearance: PRESENT: mild distress Head exam: PRESENT: atraumatic Eye exam: PRESENT: conjunctiva pink Respiratory exam: PRESENT: rhonchi, tachypnea Cardiovascular exam: PRESENT: irregular rhythm Pulses: PRESENT: +1 pedal pulses bilateral GI/Abdominal exam: PRESENT: normal bowel sounds, soft Extremities exam: PRESENT: tenderness Musculoskeletal exam: PRESENT: tenderness Neurological exam: PRESENT: alert, awake Results Laboratory Results: 11/13/16 04:29 11/13/16 04:29 11/13/16 11/13/16 11/13/16 04:29 04:29 05:35 WBC 7.6 RBC 3.03 L Hgb 9.3 L Hct 28.2 L MCV 93 MCH 30.7 MCHC 32.9 RDW 18.7 H Plt Count 148 L Seg Neutrophils % 75.1 Lymphocytes % 9.3 L Monocytes % 5.0 Eosinophils % 9.7 H Basophils % 0.9 Absolute Neutrophils 5.7 Absolute Lymphocytes 0.7 Absolute Monocytes 0.4 Absolute Eosinophils 0.7 H Absolute Basophils 0.1 Carbonic Acid 1.56 H HCO3/H2CO3 Ratio 22:1 ABG pH 7.44 ABG pCO2 51.9 H ABG pO2 66.6 L ABG HCO3 34.8 H ABG O2 Saturation 93.6 L ABG Base Excess 9.3 FiO2 40% Sodium 141.7 Potassium 3.6 Chloride 102 Carbon Dioxide 29 Anion Gap 11 BUN 54 H Creatinine 0.96 Est GFR ( Amer) > 60 Est GFR (Non-Af Amer) 57 L Glucose 85 Calcium 8.6 Total Bilirubin 1.3 AST 15 ALT 30 Alkaline Phosphatase 75 Total Protein 4.4 L Albumin 2.2 L Impressions: KUB X-Ray 11/04/16 14:40 IMPRESSION: NG tube in appropriate location. Other findings as above. Chest X-Ray 11/09/16 00:00 IMPRESSION: 1. Left lower lobe pneumonia versus marked atelectasis. 2. There is pulmonary vascular prominence with no brenda CHF. Assessment & Plan - Diagnosis (1) Acute upper gastrointestinal bleeding Is this a current diagnosis for this admission?: YesPlan: The patient again had 2 episodes of melanotic stools. We'll discuss with gastroenterology and consider transfer (2) Anemia associated with acute blood loss Is this a current diagnosis for this admission?: YesPlan: H&H is down slightly 9.8 from 10.8 (3) Hypotension due to blood loss Is this a current diagnosis for this admission?: YesPlan: Off the dopamine drip (4) Moderate to severe pulmonary hypertension Is this a current diagnosis for this admission?: YesPlan: Controlled with medications. (5) Atrial fibrillation Qualifiers: Atrial fibrillation type: chronic Qualified Code(s): I48.2 - Chronic atrial fibrillation Is this a current diagnosis for this admission?: YesPlan: Stable and rate controlled with medication (6) Obesity hypoventilation syndrome Is this a current diagnosis for this admission?: YesPlan: We will try to stop the BiPAP and use just the nasal cannula and possibly CPap at night (7) Obstructive sleep apnea Is this a current diagnosis for this admission?: YesPlan: We will try the C Pap
[2016-11-13] MEDS: FUROSEMIDE 40 MG TABLET PO SCH (09:26)
[2016-11-13] MEDS: GABAPENTIN 300 MG CAPSULE PO SCH ×2 (09:26→21:21)
[2016-11-13] MEDS: POTASSIUM CHLORIDE 20 MEQ/15 ML UDCUP PO SCH (09:26)
[2016-11-13] MEDS: THIAMINE HCL 100 MG TABLET PO SCH (09:27)
[2016-11-13] MEDS: MULTIVITAMIN TABLET PO SCH (09:27)
[2016-11-13] MEDS: ATENOLOL 50 MG TABLET PO SCH (09:27)
[2016-11-13] MEDS: ASPIRIN 81 MG TABLET, ENT COATED PO SCH (09:27)
[2016-11-13] MEDS: FOLIC ACID 1 MG TABLET PO SCH (09:27)
[2016-11-13] MEDS: NICOTINE 21 MG/24 HR PATCH.TD24 TOP SCH (09:27)
[2016-11-13] MEDS: MIDODRINE HCL 5 MG TABLET PO SCH ×3 (09:27→17:11)
[2016-11-13] MEDS: DOCUSATE SODIUM 100 MG CAPSULE PO SCH ×2 (09:27→17:11)
--- NOTE | 2016-11-13 15:11 | PDOC PROGRESS REPORT ---
Subjective Progress Note for:: 11/11/16 Subjective:: I do not feel any better Physical Exam Vital Signs: Temp Pulse Resp BP Pulse Ox 98.4 F 72 21 H 99/49 L 93 11/11/16 01:13 11/11/16 06:40 11/11/16 04:00 11/11/16 01:13 11/11/16 04:00 Pulse Oximeter Continuous Start: 11/10/16 12: 01 Freq: RTQ4 Status: Active Document 11/11/16 04:00 STI (Rec: 11/11/16 04:39 STI [email or web address]) Pulse Oximetry Assessment Oxygen Saturation (92-100) 93 Oxygen Delivery Method Bi-pap Fraction of Inspired Oxygen (FIO2) 35 Equipment Usage Equipment in Use Continuous SpO2 Machine # 3 Intake & Output 11/10/16 11/11/16 11/12/16 06:59 06:59 06:59 Intake Total 804 907 Output Total 1300 1525 Balance -496 -618 Weight 132 kg 132.1 kg General appearance: PRESENT: cooperative, disheveled, obese Head exam: PRESENT: atraumatic, normocephalic Eye exam: PRESENT: conjunctiva pale, EOMI Mouth exam: PRESENT: dry mucosa, neck supple Neck exam: ABSENT: carotid bruit, JVD, lymphadenopathy, thyromegaly Respiratory exam: PRESENT: decreased breath sounds, prolonged expiratory phas, rhonchi, symmetrical, unlabored, wheezes Cardiovascular exam: PRESENT: RRR, +S1, +S2 Pulses: PRESENT: normal radial pulses GI/Abdominal exam: PRESENT: normal bowel sounds, soft. ABSENT: distended, guarding, mass, organolmegaly, rebound, tenderness Rectal exam: PRESENT: deferred Gentrourinary exam: PRESENT: indwelling catheter Musculoskeletal exam: PRESENT: normal inspection Neurological exam: PRESENT: alert, awake Psychiatric exam: PRESENT: flat affect Skin exam: PRESENT: dry, warm Results Laboratory Results: 11/10/16 04:49 11/10/16 04:49 11/10/16 11/11/16 11:21 06:25 Carbonic Acid 1.28 1.04 L HCO3/H2CO3 Ratio 22:1 22:1 ABG pH 7.45 7.46 H ABG pCO2 42.4 34.5 L ABG pO2 56.5 L 78.7 L ABG HCO3 28.7 H 23.7 ABG O2 Saturation 90.6 L 96.3 ABG Base Excess 4.3 0.1 FiO2 35% 35% Impressions: KUB X-Ray 11/04/16 14:40 IMPRESSION: NG tube in appropriate location. Other findings as above. Chest X-Ray 11/09/16 00:00 IMPRESSION: 1. Left lower lobe pneumonia versus marked atelectasis. 2. There is pulmonary vascular prominence with no brenda CHF. Assessment & Plan - Diagnosis (1) Acute and chronic respiratory failure with hypercapnia Is this a current diagnosis for this admission?: YesPlan: Continue support via NIPPV (2) CHF (congestive heart failure) Qualifiers: Congestive heart failure type: diastolic Congestive heart failure chronicity: acute on chronic Qualified Code(s): I50.33 - Acute on chronic diastolic (congestive) heart failure Is this a current diagnosis for this admission?: Yes (3) COPD (chronic obstructive pulmonary disease) Is this a current diagnosis for this admission?: Yes (4) Moderate to severe pulmonary hypertension Is this a current diagnosis for this admission?: Yes (5) Obesity hypoventilation syndrome Is this a current diagnosis for this admission?: Yes (6) Atrial fibrillation Qualifiers: Atrial fibrillation type: chronic Qualified Code(s): I48.2 - Chronic atrial fibrillation Is this a current diagnosis for this admission?: Yes (7) Tobacco dependency Is this a current diagnosis for this admission?: Yes
--- NOTE | 2016-11-13 15:17 | PDOC PROGRESS REPORT ---
Subjective Progress Note for:: 11/13/16 Subjective:: I am not any better left heel hurts bottom hurts Physical Exam Vital Signs: Temp Pulse Resp BP Pulse Ox 98.0 F 65 18 116/61 96 11/13/16 11:36 11/13/16 14:04 11/13/16 14:04 11/13/16 11:36 11/13/16 12:00 Pulse Oximeter Continuous Start: 11/10/16 12: 01 Freq: RTQ4 Status: Active Document 11/13/16 12:00 [facility] (Rec: 11/13/16 13:09 [facility] [email or web address]) Pulse Oximetry Assessment Oxygen Saturation (92-100) 96 Oxygen Delivery Method Bi-pap Fraction of Inspired Oxygen (FIO2) 40 Equipment Usage Equipment in Use Continuous SpO2 Machine # 3 Intake & Output 11/12/16 11/13/16 11/14/16 06:59 06:59 06:59 Intake Total 783 771 Output Total 975 1125 300 Balance -192 -354 -300 Weight 132.9 kg 130.5 kg General appearance: PRESENT: no acute distress, cooperative, disheveled, morbidly obese Head exam: PRESENT: atraumatic, normocephalic Eye exam: PRESENT: conjunctiva pale, EOMI Mouth exam: PRESENT: dry mucosa, neck supple Neck exam: ABSENT: carotid bruit, JVD, lymphadenopathy, thyromegaly Respiratory exam: PRESENT: decreased breath sounds, prolonged expiratory phas, rales, rhonchi, symmetrical, unlabored Cardiovascular exam: PRESENT: RRR, +S1, +S2 Pulses: PRESENT: normal radial pulses GI/Abdominal exam: PRESENT: normal bowel sounds, soft. ABSENT: distended, guarding, mass, organolmegaly, rebound, tenderness Rectal exam: PRESENT: deferred Gentrourinary exam: PRESENT: indwelling catheter Extremities exam: PRESENT: +1 edema Neurological exam: PRESENT: alert, awake Psychiatric exam: PRESENT: depressed, flat affect Skin exam: PRESENT: dry Results Laboratory Results: 11/13/16 04:29 11/13/16 04:29 11/13/16 11/13/16 11/13/16 04:29 04:29 05:35 WBC 7.6 RBC 3.03 L Hgb 9.3 L Hct 28.2 L MCV 93 MCH 30.7 MCHC 32.9 RDW 18.7 H Plt Count 148 L Seg Neutrophils % 75.1 Lymphocytes % 9.3 L Monocytes % 5.0 Eosinophils % 9.7 H Basophils % 0.9 Absolute Neutrophils 5.7 Absolute Lymphocytes 0.7 Absolute Monocytes 0.4 Absolute Eosinophils 0.7 H Absolute Basophils 0.1 Carbonic Acid 1.56 H HCO3/H2CO3 Ratio 22:1 ABG pH 7.44 ABG pCO2 51.9 H ABG pO2 66.6 L ABG HCO3 34.8 H ABG O2 Saturation 93.6 L ABG Base Excess 9.3 FiO2 40% Sodium 141.7 Potassium 3.6 Chloride 102 Carbon Dioxide 29 Anion Gap 11 BUN 54 H Creatinine 0.96 Est GFR ( Amer) > 60 Est GFR (Non-Af Amer) 57 L Glucose 85 Calcium 8.6 Total Bilirubin 1.3 AST 15 ALT 30 Alkaline Phosphatase 75 Total Protein 4.4 L Albumin 2.2 L Impressions: KUB X-Ray 11/04/16 14:40 IMPRESSION: NG tube in appropriate location. Other findings as above. Chest X-Ray 11/09/16 00:00 IMPRESSION: 1. Left lower lobe pneumonia versus marked atelectasis. 2. There is pulmonary vascular prominence with no brenda CHF. Assessment & Plan - Diagnosis (1) Acute and chronic respiratory failure with hypercapnia Is this a current diagnosis for this admission?: YesPlan: Hypoxic relative Hypercapnic absolute (2) CHF (congestive heart failure) Qualifiers: Congestive heart failure type: diastolic Congestive heart failure chronicity: acute on chronic Qualified Code(s): I50.33 - Acute on chronic diastolic (congestive) heart failure Is this a current diagnosis for this admission?: YesPlan: Continuous noninvasive positive pressure ventilation (3) COPD (chronic obstructive pulmonary disease) Is this a current diagnosis for this admission?: YesPlan: Continue current bronchodilator therapy (4) Moderate to severe pulmonary hypertension Is this a current diagnosis for this admission?: Yes (5) Obesity hypoventilation syndrome Is this a current diagnosis for this admission?: Yes (6) Atrial fibrillation Qualifiers: Atrial fibrillation type: chronic Qualified Code(s): I48.2 - Chronic atrial fibrillation Is this a current diagnosis for this admission?: Yes (7) Tobacco dependency Is this a current diagnosis for this admission?: Yes (8) Acute upper gastrointestinal bleeding Is this a current diagnosis for this admission?: YesPlan: Considering all the underlying comorbidities the plan as I understand it is to transfer the patient to a tertiary care center
[2016-11-13] MEDS: ATORVASTATIN CALCIUM 40 MG TABLET PO SCH (21:21)
[2016-11-14] MEDS: IPRATROPIUM BROMIDE 0.02% NEB 0.5 MG/2.5 ML AMPUL NEB SCH ×4 (02:18→19:43)
[2016-11-14] MEDS: LEVALBUTEROL HCL NEB 1.25 MG/3 ML AMPUL NEB SCH ×4 (02:18→19:43)
[2016-11-14] MEDS: LANSOPRAZOLE 30 MG TAB.RAP.DR PO SCH (05:44)
[2016-11-14] MEDS: LEVOTHYROXINE SODIUM 0.15 MG TABLET PO SCH (05:44)
[2016-11-14] MEDS: SILDENAFIL CITRATE 20 MG TABLET PO SCH ×3 (08:28→17:31)
[2016-11-14] MEDS: ATENOLOL 50 MG TABLET PO SCH (10:48)
[2016-11-14] MEDS: GABAPENTIN 300 MG CAPSULE PO SCH ×2 (10:59→21:27)
[2016-11-14] MEDS: FUROSEMIDE 40 MG TABLET PO SCH (11:00)
[2016-11-14] MEDS: POTASSIUM CHLORIDE 20 MEQ/15 ML UDCUP PO SCH (11:00)
[2016-11-14] MEDS: MULTIVITAMIN TABLET PO SCH (11:00)
[2016-11-14] MEDS: DOCUSATE SODIUM 100 MG CAPSULE PO SCH ×2 (11:00→17:31)
[2016-11-14] MEDS: THIAMINE HCL 100 MG TABLET PO SCH (11:00)
[2016-11-14] MEDS: FOLIC ACID 1 MG TABLET PO SCH (11:00)
[2016-11-14] MEDS: MIDODRINE HCL 5 MG TABLET PO SCH ×3 (11:00→17:31)
[2016-11-14] MEDS: ASPIRIN 81 MG TABLET, ENT COATED PO SCH (11:05)
[2016-11-14] MEDS: NICOTINE 21 MG/24 HR PATCH.TD24 TOP SCH (11:05)
[2016-11-14] MEDS ORDERED: FUROSEMIDE INJ/PF 40 MG/4 ML SDV IV ONE (13:23)
[2016-11-14] MEDS ORDERED: POTASSIUM CHLORIDE 10 MEQ TABLET.SA PO ONE (13:24)
--- NOTE | 2016-11-14 13:57 | PDOC PROGRESS REPORT ---
Subjective Progress Note for:: 11/14/16 Subjective:: The patient was seen earlier today on rounds. Shortness of breath does persist. The patient has remained on the BiPAP. Patient did asked to try nasal cannula. The patient denies any melena hematochezia hematemesis or coffee -ground emesis. I encouraged the patient to at least attempt nasal cannula in that she cannot be transported on a BiPAP. The patient denies any nausea, vomiting, diarrhea, dizziness, chest pain, heart palpitations, fevers, or chills. The patient has remained afebrile. Blood pressures have been in a good range. When prompted the patient voices no other concerns at this time. Review of systems: The rest of the review of systems is negative. Physical Exam Vital Signs: Temp Pulse Resp BP Pulse Ox 98.0 F 88 18 131/62 H 88 L 11/14/16 11:26 11/14/16 11:26 11/14/16 11:26 11/14/16 11:26 11/14/16 12:00 Pulse Oximeter Continuous Start: 11/10/16 12: 01 Freq: RTQ4 Status: Active Document 11/14/16 12:00 LDA (Rec: 11/14/16 12:05 LDA [email or web address]) Pulse Oximetry Assessment Oxygen Saturation (92-100) 88 Oxygen Flow Rate (L/min) 6 Oxygen Delivery Method Nasal Cannula Equipment Usage Equipment in Use Continuous SpO2 Machine # 3 Intake & Output 11/12/16 11/13/16 11/14/16 23:59 23:59 23:59 Intake Total 701 1570 250 Output Total 1000 1275 450 Balance -299 295 -200 Weight 132.9 kg 130.5 kg 132.8 kg General appearance: PRESENT: cooperative, disheveled, morbidly obese, well- developed. ABSENT: thin Head exam: PRESENT: atraumatic, normocephalic Eye exam: PRESENT: conjunctiva pale, EOMI, periorbital swelling, PERRLA. ABSENT : scleral icterus Ear exam: PRESENT: normal external ear exam Mouth exam: PRESENT: moist, tongue midline Neck exam: PRESENT: JVD - To the level of the right ear. ABSENT: carotid bruit , lymphadenopathy, thyromegaly Respiratory exam: PRESENT: crackles, decreased breath sounds, symmetrical, tachypnea. ABSENT: rales, rhonchi, unlabored, wheezes Cardiovascular exam: PRESENT: RRR. ABSENT: diastolic murmur, rubs, systolic murmur Pulses: PRESENT: +1 pedal pulses bilateral Vascular exam: PRESENT: pallor GI/Abdominal exam: PRESENT: normal bowel sounds, soft. ABSENT: distended, guarding, mass, organolmegaly, rebound, tenderness Rectal exam: PRESENT: deferred Extremities exam: PRESENT: full ROM. ABSENT: calf tenderness, clubbing, pedal edema Neurological exam: PRESENT: alert, awake, oriented to person, oriented to place , oriented to time, oriented to situation, CN II-XII grossly intact. ABSENT: motor sensory deficit Psychiatric exam: PRESENT: appropriate affect, normal mood. ABSENT: homicidal ideation, suicidal ideation Skin exam: PRESENT: dry, intact. ABSENT: cyanosis, rash Additional comments: Bilateral lower extremities are cool to the touch. Results Laboratory Results: 11/13/16 04:29 11/13/16 04:29 Impressions: KUB X-Ray 11/04/16 14:40 IMPRESSION: NG tube in appropriate location. Other findings as above. Chest X-Ray 11/14/16 00:00 IMPRESSION: CARDIAC ENLARGEMENT. VASCULAR CONGESTION WITH INCREASED BILATERAL LOWER LOBE AIRSPACE DISEASE AND/OR PLEURAL EFFUSIONS. Assessment & Plan - Diagnosis (1) Cor pulmonale Is this a current diagnosis for this admission?: YesPlan: The patient has evidence of volume overload including JVP and crackles. Will diurese hopefully this will improve oxygenation. (2) Acute upper gastrointestinal bleeding Is this a current diagnosis for this admission?: YesPlan: The patient's hemoglobin has drifted down slightly overnight. Will repeat CBC in the a.m. Currently awaiting a bed at [facility]. The patient has been seen and evaluated by GI. (3) Anemia associated with acute blood loss Is this a current diagnosis for this admission?: YesPlan: The patient is status post transfusion 4 liters. (4) Hemorrhagic shock Is this a current diagnosis for this admission?: YesPlan: The patient is no longer requiring vasopressors. Off dopamine. The patient has tolerated minute Drennen. (5) Cor pulmonale (chronic) Is this a current diagnosis for this admission?: Yes (6) Acute and chronic respiratory failure with hypercapnia Is this a current diagnosis for this admission?: YesPlan: The patient has been on BiPAP. Will transition to nasal cannula chest for now as the patient cannot be transported on BiPAP. (7) Acute kidney injury Is this a current diagnosis for this admission?: YesPlan: The patient's creatinine has normalized. However BUN remains elevated which could be suggestive of underlying GI bleed. (8) COPD (chronic obstructive pulmonary disease) Qualifiers: COPD type: unspecified COPD Qualified Code(s): J44.9 - Chronic obstructive pulmonary disease, unspecified Is this a current diagnosis for this admission?: Yes (9) Hypothyroid Is this a current diagnosis for this admission?: Yes (10) Moderate to severe pulmonary hypertension Is this a current diagnosis for this admission?: YesPlan: Will continue's analysis feel (11) Obesity hypoventilation syndrome Is this a current diagnosis for this admission?: Yes (12) Obstructive sleep apnea Is this a current diagnosis for this admission?: Yes (13) Atrial fibrillation Qualifiers: Atrial fibrillation type: chronic Qualified Code(s): I48.2 - Chronic atrial fibrillation Is this a current diagnosis for this admission?: Yes (14) Thrombocytopenia Is this a current diagnosis for this admission?: YesPlan: Overall this has improved. (15) Tobacco dependency Is this a current diagnosis for this admission?: Yes (16) Physical deconditioning Is this a current diagnosis for this admission?: Yes (17) Alcohol dependence Qualifiers: Substance use status: uncomplicated Qualified Code(s): F10.20 - Alcohol dependence, uncomplicated Is this a current diagnosis for this admission?: No - Time Time Spent with patient: 35 or more minutes Medications reviewed and adjusted accordingly: Yes Anticipated discharge: [facility]: when bed available Disposition: The patient is a DO NOT RESUSCITATE DO NOT INTUBATE. Pending patient's symptomatology and diagnostic findings will reevaluate as needed.
[2016-11-14 21:23] LABS: VENOUS BLOOD BASE EXCESS 4.1 mmol/L; VENOUS BLOOD HCO3 29.7 mmol/L (20-32); VENOUS BLOOD PCO2 49.6 mmHg (35-63); VENOUS BLOOD PH 7.4 (7.30-7.42)
[2016-11-14] MEDS: ATORVASTATIN CALCIUM 40 MG TABLET PO SCH (21:26)
[2016-11-14] MEDS: ACETAMINOPHEN 325 MG TABLET PO PRN (21:28)
[2016-11-15] MEDS: IPRATROPIUM BROMIDE 0.02% NEB 0.5 MG/2.5 ML AMPUL NEB SCH ×2 (02:45→08:09)
[2016-11-15] MEDS: LEVALBUTEROL HCL NEB 1.25 MG/3 ML AMPUL NEB SCH ×2 (02:45→08:09)
[2016-11-15 05:06] LABS: HEMATOCRIT 29.7 % (36.0-47.0); HEMOGLOBIN 9.7 g/dL (12.0-15.5); HGB HCT DIFFERENCE -0.6; MEAN CORPUSCULAR HEMOGLOBIN 30.7 pg (27.0-33.4); MEAN CORPUSCULAR HGB CONC 32.7 g/dL (32.0-36.0); MEAN CORPUSCULAR VOLUME 94 fl (80-97); RED BLOOD COUNT 3.17 10^6/uL (3.72-5.28); RED CELL DISTRIBUTION WIDTH 18.7 % (11.5-14.0); WHITE BLOOD COUNT 6.6 10^3/uL (4.0-10.5)
[2016-11-15] MEDS: LANSOPRAZOLE 30 MG TAB.RAP.DR PO SCH (05:20)
[2016-11-15] MEDS: LEVOTHYROXINE SODIUM 0.15 MG TABLET PO SCH (05:20)
[2016-11-15 05:26] LABS: ANION GAP 7 (5-19); BLOOD UREA NITROGEN 44 mg/dL (7-20); CALCIUM 8.9 mg/dL (8.4-10.2); CARBON DIOXIDE 32 mmol/L (22-30); CHLORIDE 103 mmol/L (98-107); CREATININE RESULT 0.91 mg/dL (0.52-1.25); GLUCOSE 81 mg/dL (75-110); MAGNESIUM 1.5 mg/dL (1.6-2.3); POTASSIUM 3.9 mmol/L (3.6-5.0); SODIUM 142.3 mmol/L (137-145)
[2016-11-15] MEDS: SILDENAFIL CITRATE 20 MG TABLET PO SCH ×2 (10:56→11:07)
[2016-11-15] MEDS: THIAMINE HCL 100 MG TABLET PO SCH (11:05)
[2016-11-15] MEDS: DOCUSATE SODIUM 100 MG CAPSULE PO SCH (11:05)
[2016-11-15] MEDS: ASPIRIN 81 MG TABLET, ENT COATED PO SCH (11:05)
[2016-11-15] MEDS: MULTIVITAMIN TABLET PO SCH (11:06)
[2016-11-15] MEDS: FUROSEMIDE 40 MG TABLET PO SCH (11:06)
[2016-11-15] MEDS: GABAPENTIN 300 MG CAPSULE PO SCH (11:06)
[2016-11-15] MEDS: ATENOLOL 50 MG TABLET PO SCH (11:07)
[2016-11-15] MEDS: POTASSIUM CHLORIDE 20 MEQ/15 ML UDCUP PO SCH (11:08)
[2016-11-15] MEDS: FOLIC ACID 1 MG TABLET PO SCH (11:08)
[2016-11-15] MEDS: MIDODRINE HCL 5 MG TABLET PO SCH (11:09)
[2016-11-15] MEDS: NICOTINE 21 MG/24 HR PATCH.TD24 TOP SCH (11:09)
[2016-11-15 11:50] VITALS: BP 137/70
--- NOTE | 2016-11-15 13:59 | PDOC PROGRESS REPORT ---
Subjective Progress Note for:: 11/15/16 Subjective:: The patient was seen earlier today on rounds. Shortness of breath does persist. The patient is reminded that she needs to transition to nasal cannula for transportation. The patient denies any melena hematochezia hematemesis or coffee-ground emesis. The patient denies any nausea, vomiting, diarrhea, dizziness, chest pain, heart palpitations, fevers, or chills. The patient has remained afebrile. Blood pressures have been in a good range. When prompted the patient voices no other concerns at this time. Review of systems: The rest of the review of systems is negative. Discussed the case with the transfer center. Is a bed available at [facility] in [facility] with GI support. Called and discussed the case with Dr. Argueta who is agreed to accept the patient for transfer. Physical Exam Vital Signs: Temp Pulse Resp BP Pulse Ox 97.8 F 78 24 H 137/70 H 92 11/15/16 11:39 11/15/16 08:09 11/15/16 11:39 11/15/16 11:39 11/15/16 11:36 Intake & Output 11/13/16 11/14/16 11/15/16 23:59 23:59 23:59 Intake Total 1570 1096 555 Output Total 1275 1550 825 Balance 295 -454 -270 Weight 130.5 kg 132.8 kg 131.2 kg General appearance: PRESENT: cooperative, disheveled, morbidly obese, well- developed. ABSENT: thin Head exam: PRESENT: atraumatic, normocephalic Eye exam: PRESENT: conjunctiva pale, EOMI, periorbital swelling, PERRLA. ABSENT : scleral icterus Ear exam: PRESENT: normal external ear exam Mouth exam: PRESENT: moist, tongue midline Neck exam: PRESENT: JVD - To the level of the right ear. ABSENT: carotid bruit , lymphadenopathy, thyromegaly Respiratory exam: PRESENT: crackles, decreased breath sounds, symmetrical, tachypnea. ABSENT: rales, rhonchi, unlabored, wheezes Cardiovascular exam: PRESENT: RRR. ABSENT: diastolic murmur, rubs, systolic murmur Pulses: PRESENT: +1 pedal pulses bilateral Vascular exam: PRESENT: pallor GI/Abdominal exam: PRESENT: normal bowel sounds, soft. ABSENT: distended, guarding, mass, organolmegaly, rebound, tenderness Rectal exam: PRESENT: deferred Extremities exam: PRESENT: full ROM. ABSENT: calf tenderness, clubbing, pedal edema Neurological exam: PRESENT: alert, awake, oriented to person, oriented to place , oriented to time, oriented to situation, CN II-XII grossly intact. ABSENT: motor sensory deficit Psychiatric exam: PRESENT: appropriate affect, normal mood. ABSENT: homicidal ideation, suicidal ideation Skin exam: PRESENT: dry, intact. ABSENT: cyanosis, rash Additional comments: Bilateral lower extremities are cool to the touch. Results Laboratory Results: 11/15/16 04:38 11/15/16 04:38 11/14/16 11/15/16 11/15/16 21:15 04:38 04:38 WBC 6.6 RBC 3.17 L Hgb 9.7 L Hct 29.7 L MCV 94 MCH 30.7 MCHC 32.7 RDW 18.7 H Plt Count 190 VBG pH 7.40 VBG pCO2 49.6 VBG HCO3 29.7 VBG Base Excess 4.1 Sodium 142.3 Potassium 3.9 Chloride 103 Carbon Dioxide 32 H Anion Gap 7 BUN 44 H Creatinine 0.91 Est GFR ( Amer) > 60 Est GFR (Non-Af Amer) > 60 Glucose 81 Calcium 8.9 Magnesium 1.5 L Impressions: KUB X-Ray 11/04/16 14:40 IMPRESSION: NG tube in appropriate location. Other findings as above. Chest X-Ray 11/14/16 00:00 IMPRESSION: CARDIAC ENLARGEMENT. VASCULAR CONGESTION WITH INCREASED BILATERAL LOWER LOBE AIRSPACE DISEASE AND/OR PLEURAL EFFUSIONS. Assessment & Plan - Diagnosis (1) Cor pulmonale Is this a current diagnosis for this admission?: YesPlan: Patient was diuresed yesterday with improvement. (2) Acute upper gastrointestinal bleeding Is this a current diagnosis for this admission?: YesPlan: Hemoglobin remained stable overnight. The patient has been seen and evaluated by GI. (3) Anemia associated with acute blood loss Is this a current diagnosis for this admission?: YesPlan: The patient is status post transfusion 4 units (4) Hemorrhagic shock Is this a current diagnosis for this admission?: YesPlan: The patient is no longer requiring vasopressors. Off dopamine. The patient has tolerated minute during (5) Cor pulmonale (chronic) Is this a current diagnosis for this admission?: Yes (6) Acute and chronic respiratory failure with hypercapnia Is this a current diagnosis for this admission?: YesPlan: The patient has been on BiPAP. Will transition to nasal cannula chest for now as the patient cannot be transported on BiPAP. (7) Acute kidney injury Is this a current diagnosis for this admission?: YesPlan: The patient's creatinine has normalized. However BUN remains elevated which could be suggestive of underlying GI bleed. (8) COPD (chronic obstructive pulmonary disease) Qualifiers: COPD type: unspecified COPD Qualified Code(s): J44.9 - Chronic obstructive pulmonary disease, unspecified Is this a current diagnosis for this admission?: Yes (9) Hypothyroid Is this a current diagnosis for this admission?: Yes (10) Moderate to severe pulmonary hypertension Is this a current diagnosis for this admission?: YesPlan: Will continue's Synalgos feel (11) Obesity hypoventilation syndrome Is this a current diagnosis for this admission?: Yes (12) Obstructive sleep apnea Is this a current diagnosis for this admission?: Yes (13) Atrial fibrillation Qualifiers: Atrial fibrillation type: chronic Qualified Code(s): I48.2 - Chronic atrial fibrillation Is this a current diagnosis for this admission?: Yes (14) Thrombocytopenia Is this a current diagnosis for this admission?: YesPlan: Overall this has improved. (15) Tobacco dependency Is this a current diagnosis for this admission?: Yes (16) Physical deconditioning Is this a current diagnosis for this admission?: Yes (17) Alcohol dependence Qualifiers: Substance use status: uncomplicated Qualified Code(s): F10.20 - Alcohol dependence, uncomplicated Is this a current diagnosis for this admission?: No - Time Time Spent with patient: 25-34 minutes Medications reviewed and adjusted accordingly: Yes Anticipated discharge: [facility]: when bed available Disposition: The patient is a DO NOT RESUSCITATE DO NOT INTUBATE. Pending patient's symptomatology and diagnostic findings will reevaluate as needed. The patient has been accepted to the services of Dr. Argueta at [facility]. Please see transfer summary dictated by the patient's primary care provider. And as always I would like to thank the patient's primary care provider as well as [facility] for graciously participating in the care of this patient.
== END 2016-11-15 12:30 | disposition short-term general hospital (02) | DRG 377 ==
LOC: ER 21:11 → EH 23:03 → UNDOADMIN 23:39 → EH 23:39 → 3W 11-04 13:44
PROVIDERS: ADMIT Internal Medicine; ATTEND Internal Medicine
PROC: 5A09557 Assistance with Respiratory Ventilation, Greater than 96 Consecutive Hours, Continuous Positive Airway Pressure (ICD-10-PCS; 2016-11-03)
PROC: 30233N1 Transfusion of Nonautologous Red Blood Cells into Peripheral Vein, Percutaneous Approach (ICD-10-PCS; 2016-11-04)
PROC: 30233N1 Transfusion of Nonautologous Red Blood Cells into Peripheral Vein, Percutaneous Approach (ICD-10-PCS; 2016-11-05)
PROC: 0W3P8ZZ Control Bleeding in Gastrointestinal Tract, Via Natural or Artificial Opening Endoscopic (ICD-10-PCS; principal; 2016-11-05 13:15)
DX: K31.811 Angiodysplasia of stomach and duodenum with bleeding (principal); J96.22 Acute and chronic respiratory failure with hypercapnia; J96.21 Acute and chronic respiratory failure with hypoxia; I50.33 Acute on chronic diastolic (congestive) heart failure; R57.1 Hypovolemic shock; I13.0 Hypertensive heart and chronic kidney disease with heart failure and stage 1 through stage 4 chronic kidney disease, or unspecified chronic kidney disease; D62 Acute posthemorrhagic anemia; N17.9 Acute kidney failure, unspecified; E66.2 Morbid (severe) obesity with alveolar hypoventilation; I27.81 Cor pulmonale (chronic); N18.3 Chronic kidney disease, stage 3 (moderate); I48.2 Chronic atrial fibrillation; I95.89 Other hypotension; I27.2 Other secondary pulmonary hypertension; E78.5 Hyperlipidemia, unspecified; J44.9 Chronic obstructive pulmonary disease, unspecified; I87.2 Venous insufficiency (chronic) (peripheral); E03.9 Hypothyroidism, unspecified; M19.90 Unspecified osteoarthritis, unspecified site; F17.210 Nicotine dependence, cigarettes, uncomplicated; Z66 Do not resuscitate; Z79.01 Long term (current) use of anticoagulants; Z79.899 Other long term (current) drug therapy; Z88.8 Allergy status to other drugs, medicaments and biological substances; F10.20 Alcohol dependence, uncomplicated
CPT/HCPCS: 00740; 36415; 36430; 36600; 43255; 71010; 74000; 80048; 80053; 80061; 81001; 82271; 82272; 82803; 82962; 83690; 83735; 84443; 85025; 85027; 85610; 86850; 86900; 86901; 86920; 87040; 87045; 87205; 93005; 93010; 94640; 94660; 94762; 96372; 96374; 96375; 99285; G8978-GP; G8979-GP; J0696; J1265; J1642; J1644; J1940; J1956; J2405; J3010; J3490; J7030; J7050; P9016; S0164

== ENCOUNTER 2016-12-03 02:09 | Inpatient (IN) | payer MEDICARE ==
[2016-12-03] MEDS ORDERED: IPRATROPIUM/ALBUTEROL 0.5-2.5 MG/3 ML AMPUL NEB ONE (02:38)
[2016-12-03] MEDS ORDERED: METHYLPREDNISOLONE INJ 125 MG/2 ML SDV IV ONE (02:40)
[2016-12-03] MEDS ORDERED: FUROSEMIDE INJ/PF 100 MG/10 ML SDV IV ONE (02:42)
--- NOTE | 2016-12-03 02:49 | RADIOLOGY REPORT (SQ) ---
EXAM DESCRIPTION: CHEST SINGLE VIEW COMPLETED DATE/TIME: 12/03/2016 2:35 am REASON FOR STUDY: RESPIRATORY DIFFICULTIES COMPARISON: 11/14/2016. EXAM PARAMETERS: NUMBER OF VIEWS: One view. TECHNIQUE: Single frontal radiographic view of the chest acquired. RADIATION DOSE: NA LIMITATIONS: Rotation. FINDINGS: LUNGS AND PLEURA: Small left lung volume. Moderate right lung volume. Moderate -large op acification -effusion of bilateral lower lung whitehead, left more than right. New moderate opacificati on of the medial left upper lobe. Moderate pulmonary edema pattern. MEDIASTINUM AND HILAR STRUCTURES: No masses. Contour normal. HEART AND VASCULAR STRUCTURES: Moderate enlargement of the cardiac silhouette. BONES: No acute findings. HARDWARE: None in the chest. OTHER: No other significant finding. IMPRESSION: Increased, moderate -large bilateral hemithoracic opacification, left more than right. TECHNICAL DOCUMENTATION: JOB ID: [id number]
[2016-12-03 02:57] LABS: ABSOLUTE BASOPHILS # (AUTO) 0.1 10^3/uL (0.0-0.2); ABSOLUTE EOSINOPHILS # (AUTO) 0.3 10^3/uL (0.0-0.6); ABSOLUTE LYMPHOCYTES (AUTO) 0.8 10^3/uL (0.5-4.7); ABSOLUTE MONOCYTES (AUTO) 0.4 10^3/uL (0.1-1.4); ABSOLUTE NEUT (AUTO) 7.6 10^3/uL (1.7-8.2); BASOPHILS % (AUTO) 1.1 % (0-2); EOSINOPHILS % (AUTO) 2.8 % (0-6); HEMATOCRIT 31.8 % (36.0-47.0); HEMOGLOBIN 9.9 g/dL (12.0-15.5); HGB HCT DIFFERENCE -2.1; LYMPHOCYTES % (AUTO) 9.1 % (13-45); MEAN CORPUSCULAR HGB CONC 31.2 g/dL (32.0-36.0); MEAN CORPUSCULAR VOLUME 96 fl (80-97); MONOCYTES % (AUTO) 4.5 % (3-13); RED BLOOD COUNT 3.31 10^6/uL (3.72-5.28); RED CELL DISTRIBUTION WIDTH 20.1 % (11.5-14.0); SEGMENTED NEUTROPHILS % (AUTO) 82.5 % (42-78); WHITE BLOOD COUNT 9.2 10^3/uL (4.0-10.5)
[2016-12-03 03:13] LABS: ALANINE AMINOTRANSFERASE 28 U/L (9-52); ALBUMIN 3.3 g/dL (3.5-5.0); ALKALINE PHOSPHATASE 115 U/L (38-126); ASPARTATE AMINO TRANSFERASE 43 U/L (14-36); BILIRUBIN,DIRECT 0.7 mg/dL (0.0-0.4); BILIRUBIN,TOTAL 0.8 mg/dL (0.2-1.3); BLOOD UREA NITROGEN 41 mg/dL (7-20); CALCIUM 9.3 mg/dL (8.4-10.2); CHLORIDE 87 mmol/L (98-107); CREATININE RESULT 1.14 mg/dL (0.52-1.25); GLUCOSE 118 mg/dL (75-110); MAGNESIUM 2.2 mg/dL (1.6-2.3); SODIUM 143.7 mmol/L (137-145); TOTAL PROTEIN 6.8 g/dL (6.3-8.2)
--- NOTE | 2016-12-03 03:21 | ER Document Report ---
ED General - General Chief Complaint: Breathing Difficulty Stated Complaint: DIFFICULTY BREATHING Time Seen by Provider: 12/03/16 02:33 Mode of Arrival: Medic Information source: Patient, Emergency Med Personnel, Outside Facility Records TRAVEL OUTSIDE OF THE [place] IN LAST 30 DAYS: No - HPI Notes: See computer downtime charting. - Related Data Allergies/Adverse Reactions: codeine [Codeine] Adverse Reaction (Mild, Verified 11/04/16 04:23) VOMITING morphine Adverse Reaction (Verified 11/04/16 04:23) oxycodone [From Percocet] Adverse Reaction (Verified 11/04/16 04:23) prednisone Adverse Reaction (Verified 11/04/16 04:23) Home Medications: Current Home Medications Alprazolam [Xanax 0.25 mg Tablet] 0.25 mg PO QIDP PRN 12/03/16 [History] Bumetanide [Bumex 1 mg Tablet] 1 mg PO BID 12/03/16 [History] Diclofenac Sodium [Voltaren] 1 applic TOP DAILYP PRN 12/03/16 [History] Ipratropium/Albuterol Sulfate [Iprat-Albut 0.5-3(2.5) mg/3 ml] 3 ml NEB QID [History] Levothyroxine Sodium [Synthroid 0.15 mg Tablet] 0.15 mg PO DAILY 12/03/16 [ History] Potassium Chloride [K-Tab ER] 20 meq PO BID 12/03/16 [History] Past Medical History - General Information source: Patient - Social History Smoking Status: Never Smoker Frequency of alcohol use: None Drug Abuse: None Lives with: Alone Family History: Reviewed & Not Pertinent - Past Medical History Cardiac Medical History: Reports: Hx Atrial Fibrillation, Hx Congestive Heart Failure, Hx DVT, Hx Hypercholesterolemia, Hx Hypertension Denies: Hx Pulmonary Embolism Pulmonary Medical History: Reports: Hx COPD, Hx Sleep Apnea Neurological Medical History: Denies: Hx Seizures Endocrine Medical History: Reports: Hx Hypothyroidism. Denies: Hx Diabetes Mellitus Type 1, Hx Diabetes Mellitus Type 2, Hx Hyperthyroidism Renal/ Medical History: Denies: Hx Peritoneal Dialysis GI Medical History: Denies: Hx Cirrhosis, Hx Hepatitis Musculoskeltal Medical History: Reports Hx Arthritis Psychiatric Medical History: Denies: Hx Depression Infectious Medical History: Denies: Hx C-Diff, Hx Hepatitis, Hx MRSA Past Surgical History: Reports: Hx Orthopedic Surgery, Hx Tonsillectomy Physical Exam - Vital signs Vitals: Pulse Ox 62 L 12/03/16 02:10 Course - Re-evaluation Re-evalutation: 12/11/16 05:43 See computer downtime charting. 12/11/16 05:44 - Vital Signs Vital signs: Temp Pulse Resp BP Pulse Ox 98.8 F 55 L 14 105/50 L 98 12/11/16 03:20 12/11/16 04:25 12/11/16 04:25 12/11/16 03:20 12/11/16 03:20 - Laboratory Result Diagrams: 12/08/16 05:50 12/09/16 05:13 Laboratory results interpreted by me: 12/03/16 12/03/16 12/03/16 02:38 02:38 02:38 RBC 3.31 L Hgb 9.9 L Hct 31.8 L MCHC 31.2 L RDW 20.1 H Seg Neutrophils % 82.5 H Lymphocytes % 9.1 L Carbonic Acid ABG pCO2 ABG pO2 ABG HCO3 ABG Total CO2 ABG O2 Saturation Potassium 3.1 L Chloride 87 L Carbon Dioxide 45 H* BUN 41 H Est GFR ( Amer) 57 L Est GFR (Non-Af Amer) 47 L Glucose 118 H Direct Bilirubin 0.7 H AST 43 H NT-Pro-B Natriuret Pep 22433 H Albumin 3.3 L Urine Protein Urine Blood Ur Leukocyte Esterase Urine Ascorbic Acid 12/03/16 12/03/16 04:00 04:21 RBC Hgb Hct MCHC RDW Seg Neutrophils % Lymphocytes % Carbonic Acid 2.66 H ABG pCO2 88.3 H* ABG pO2 58.5 L ABG HCO3 48.2 H ABG Total CO2 50.9 H ABG O2 Saturation 87.3 L Potassium Chloride Carbon Dioxide BUN Est GFR ( Amer) Est GFR (Non-Af Amer) Glucose Direct Bilirubin AST NT-Pro-B Natriuret Pep Albumin Urine Protein 100 H Urine Blood SMALL H Ur Leukocyte Esterase SMALL H Urine Ascorbic Acid 40 H Discharge - Discharge Clinical Impression: COPD with acute exacerbation, Obesity hypoventilation syndrome, Hypercarbia, DNR (do not resuscitate), Hypoxia, Pleural effusion CHF (congestive heart failure) Qualifiers: Congestive heart failure type: diastolic Congestive heart failure chronicity: acute on chronic Qualified Code(s): I50.33 - Acute on chronic diastolic ( congestive) heart failure
[2016-12-03 03:24] LABS: TROPONIN I 0.021 ng/mL
[2016-12-03 03:27] LABS: ANION GAP 12 (5-19)
[2016-12-03 03:31] LABS: POTASSIUM 3.1 mmol/L (3.6-5.0)
[2016-12-03 03:36] LABS: CARBON DIOXIDE 45 mmol/L (22-30)
[2016-12-03 03:43] LABS: THYROID STIMULATING HORMONE 1.21 uIU/mL (0.47-4.68)
[2016-12-03 04:40] LABS: ARTERIAL BLOOD BASE EXCESS 18.9 mmol/L; ARTERIAL BLOOD O2 SATURATION 87.3 % (94-98)
[2016-12-03 04:51] LABS: AMORPHOUS SEDIMENT,URINE TRACE /HPF; APPEARANCE,URINE CLOUDY; BILIRUBIN,URINE NEGATIVE (NEGATIVE); GLUCOSE, URINE NEGATIVE (NEGATIVE); KETONES,URINE NEGATIVE (NEGATIVE); LEUKOCYTE ESTERASE,URINE SMALL (NEGATIVE); NITRITE,URINE NEGATIVE (NEGATIVE); PROTEIN,URINE 100 mg/dL (NEGATIVE); URINE SPECIFIC GRAVITY 1.016; UROBILINOGEN,URINE NEGATIVE mg/dL (<2.0)
[2016-12-03] MEDS ORDERED: MAGNESIUM HYDROXIDE SUSP 30 ML UDCUP PO PRN (06:00)
[2016-12-03] MEDS ORDERED: NORMAL SALINE 1000 ML 1,000 ML IV SCH (06:00)
[2016-12-03] MEDS ORDERED: MAG HYDROX/AL HYDROX/SIMETH SUSP 30 ML UDCUP PO PRN (06:00)
[2016-12-03] MEDS ORDERED: HYDROCORTISONE SOD SUCCINATE INJ/PF 100 MG/2 ML SDV IV ONE (06:15)
[2016-12-03] MEDS ORDERED: VANCOMYCIN HCL 0 MG in DEXTROSE 5%-WATER 250 ML IV NR (06:15)
[2016-12-03] MEDS ORDERED: VANCOMYCIN HCL 1,000 MG in DEXTROSE 5%-WATER 250 ML IV ONE (06:30)
[2016-12-03] MEDS ORDERED: CEFTRIAXONE 1 GM/D5W RTU 1 GM/50 ML RTUPB IV ONE (07:00)
[2016-12-03] MEDS: HEPARIN SOD (PORCINE) 5,000 UNIT/ML 1 ML SYRINGE SUBCUT SCH ×3 (07:04→22:12)
[2016-12-03 07:21] LABS: CREATINE KINASE MB 0.55 ng/mL (<4.55); TROPONIN I 0.028 ng/mL
--- NOTE | 2016-12-03 07:23 | PDOC H&P ---
History of Present Illness Admission Date/PCP: 12/03/16 06:00 NATALIA COX, Patient complains of: Altered mental status History of Present Illness: MARIANO HENRY is a 71 year old female a past medical history pneumonia, diastolic heart failure, severe pulmonary hypertension, atrial fibrillation, obstructive sleep apnea, morbid obesity, hypoventilation syndrome, venous stasis , deep vein thrombosis, stage III chronic kidney disease, renal insufficiency and recent GI bleed. She was transferred to [facility] and 24 hours ago from [facility] in [facility] scheduled Xanax. alf staff were challenged by hypoxia and difficulty applying BiPAP and subsequently transferred to the emergency room for evaluation where she was found to be obtunded. Her workup reveals a right upper lobe infiltrate, and hypercapnic respiratory failure. She started on empiric BiPAP and referred to the hospitalist for admission. Her CODE STATUS is DNR. She is unable to provide history. Past Medical History Cardiac Medical History: Reports: Atrial Fibrillation, Congestive Heart Failure , DVT, Hyperlipidema, Hypertension Denies: Pulmonary Embolism Pulmonary Medical History: Reports: Chronic Obstructive Pulmonary Disease (COPD) , Sleep Apnea Neurological Medical History: Denies: Seizures Endocrine Medical History: Reports: Hypothyroidism Denies: Diabetes Mellitus Type 1, Diabetes Mellitus Type 2, Hyperthyroidism GI Medical History: Denies: Cirrhosis, Hepatitis Musculoskeltal Medical History: Reports: Arthritis Psychiatric Medical History: Denies: Depression Infectious Medical History: Denies: Clostridium Difficile, Methicillin-Resistant Staph Aureus Past Surgical History Past Surgical History: Reports: Orthopedic Surgery, Tonsillectomy Social History Smoking Status: Never Smoker Frequency of Alcohol Use: Heavy Drugs: None Hx Prescription Drug Abuse: No Family History Family History: Reviewed & Not Pertinent, Other - And unable to provide history Parental Family History Reviewed: No - Unable to provide history Children Family History Reviewed: Unknown - Provide history Sibling(s) Family History Reviewed.: Unknown - Provide history Medication/Allergy Home Medications: Furosemide [Lasix] 40 mg PO DAILY 11/04/16 Multivitamin [Daily Multiple Vitamin] 1 tab PO DAILY 11/04/16 Nicotine [Nicoderm 21 mg/24 Hr Transderm Patch] 1 patch TOP DAILY 11/04/16 Potassium Chloride [Klor-Con 10 Meq Tablet.sa] 10 meq PO DAILY 11/04/16 Acetaminophen [Tylenol 325 mg Tablet] 650 mg PO Q8HP PRN #0 tablet 05/04/17 Atenolol [Tenormin 50 mg Tablet] 25 mg PO DAILY #0 tablet 11/12/16 Atorvastatin Calcium [Lipitor 40 mg Tablet] 40 mg PO QHS #0 tablet 11/12/16 Docusate Sodium [Colace 100 mg Capsule] 100 mg PO BID #0 capsule 11/12/16 Folic Acid [Folvite 1 mg Tablet] 1 mg PO DAILY #0 tablet 11/12/16 Gabapentin [Neurontin 300 mg Capsule] 300 mg PO Q12 #0 capsule 11/12/16 Ipratropium [place] [Atrovent 0.02% Neb 0.5 mg/2.5 ml Ampul] 0.5 mg NEB RTQ6 #0 vial.neb 11/12/16 Lansoprazole [Prevacid 30 mg Odt Tablet] 30 mg PO DAILY@0600 #0 tabedmundo. 11/12 Levalbuterol HCl [Xopenex Neb 1.25 mg/3 ml Ampul] 1.25 mg NEB RTQ6 #0 vial.neb 11/12/16 Levothyroxine Sodium [Synthroid 0.15 mg Tablet] 0.15 mg PO Q6AM #0 tablet Mag Hydrox/Al Hydrox/Simeth [Maalox Plus Susp 30 Udcup] 30 ml PO Q6HP PRN #0 udc 11/12/16 Midodrine HCl [Proamatine 5 mg Tablet] 5 mg PO TID #0 tablet 11/12/16 Sildenafil Citrate [Revatio 20 mg Tablet] 20 mg PO MEALS #0 tablet 11/12/16 Thiamine HCl [Thiamine 100 mg Tablet] 100 mg PO DAILY #0 tablet 11/12/16 Allergies/Adverse Reactions: codeine [Codeine] Adverse Reaction (Mild, Verified 11/04/16 04:23) VOMITING morphine Adverse Reaction (Verified 11/04/16 04:23) oxycodone [From Percocet] Adverse Reaction (Verified 11/04/16 04:23) prednisone Adverse Reaction (Verified 11/04/16 04:23) Review of Systems ROS unobtainable: Due to mental status - Altered mental status Physical Exam Vital Signs: Temp Pulse Resp BP Pulse Ox 22 H 138/86 H 89 L 12/03/16 07:01 12/03/16 07:01 12/03/16 07:01 General appearance: PRESENT: morbidly obese, severe distress Head exam: PRESENT: atraumatic, normocephalic Eye exam: PRESENT: conjunctiva pink, EOMI, PERRLA. ABSENT: scleral icterus Ear exam: PRESENT: normal external ear exam Mouth exam: PRESENT: dry mucosa, tongue midline Neck exam: ABSENT: carotid bruit, JVD, lymphadenopathy, thyromegaly Respiratory exam: PRESENT: accessory muscle use, crackles, prolonged expiratory phas. ABSENT: rales, rhonchi, wheezes Cardiovascular exam: PRESENT: irregular rhythm, RRR. ABSENT: diastolic murmur, rubs, systolic murmur Pulses: PRESENT: normal dorsalis pedis pul GI/Abdominal exam: PRESENT: normal bowel sounds, soft. ABSENT: distended, guarding, mass, organolmegaly, rebound, tenderness Rectal exam: PRESENT: deferred Extremities exam: PRESENT: full ROM, other - Chronic changes of venous stasis. ABSENT: calf tenderness, clubbing, pedal edema Neurological exam: PRESENT: altered Skin exam: PRESENT: other - Dehydrated and chronic changes of venous stasis Results Impressions: Chest X-Ray 12/03/16 02:11 IMPRESSION: Increased, moderate -large bilateral hemithoracic opacification, left more than right. Assessment & Plan - Diagnosis (1) CHF (congestive heart failure) Qualifiers: Congestive heart failure type: unspecified congestive heart failure type Congestive heart failure chronicity: unspecified congestive heart failure chronicity Qualified Code(s): I50.9 - Heart failure, unspecified Is this a current diagnosis for this admission?: YesPlan: Acute on chronic daily compensated secondary to hypercapnic respiratory failure. Optimize blood pressure and heart rate. She appears dehydrated and will gently rehydrate up chemistry and cardiac enzymes (2) COPD with acute exacerbation Is this a current diagnosis for this admission?: YesPlan: Albuterol and Atrovent. BiPAP support. Avoid sedation (3) DNR (do not resuscitate) Is this a current diagnosis for this admission?: YesPlan: BiPAP support (4) Hypercarbia Is this a current diagnosis for this admission?: YesPlan: Multifactorial with morbid obesity hypoventilation syndrome, complicated by benzodiazepine use. BiPAP support, avoid excessive oxygenation (5) Pneumonia Is this a current diagnosis for this admission?: YesPlan: Empiric antibiotics for coverage of nosocomial pneumonia given recent discharge , reevaluate chest x-ray if consideration of atelectasis - Time Time Spent: 50 to 70 Minutes - Inpatient Certification Medical Necessity: Need Close Monitoring Due to Risk of Patient Decompensation
--- NOTE | 2016-12-03 07:47 | EKG REPORT ---
SEVERITY:- ABNORMAL ECG - ATRIAL FIBRILLATION LOW VOLTAGE THROUGHOUT NONSPECIFIC T ABNORMALITIES, LATERAL LEADS : Confirmed by: Clem Dougherty MD 03-Dec-2016 07:47:17
[2016-12-03] MEDS: IPRATROPIUM/ALBUTEROL 0.5-2.5 MG/3 ML AMPUL NEB SCH ×4 (08:20→19:53)
[2016-12-03] MEDS: SILDENAFIL CITRATE 20 MG TABLET PO SCH ×3 (10:13→16:26)
[2016-12-03] MEDS: ATENOLOL 50 MG TABLET PO SCH (10:14)
[2016-12-03] MEDS: MIDODRINE HCL 5 MG TABLET PO SCH ×3 (10:14→18:06)
[2016-12-03] MEDS: DOCUSATE SODIUM 100 MG CAPSULE PO SCH ×2 (10:14→18:10)
[2016-12-03] MEDS: POTASSI CL 20 MEQ/50 ML RIDER 20 MEQ/50 ML RTUPB IV SCH ×3 (10:15→13:51)
[2016-12-03] MEDS: GABAPENTIN 300 MG CAPSULE PO SCH ×2 (10:15→22:12)
[2016-12-03] MEDS: THIAMINE HCL 100 MG TABLET PO SCH (10:15)
[2016-12-03 12:46] LABS: CREATINE KINASE MB 0.47 ng/mL (<4.55); TROPONIN I 0.018 ng/mL
[2016-12-03 13:06] LABS: ARTERIAL BLOOD BASE EXCESS 20.6 mmol/L; ARTERIAL BLOOD O2 SATURATION 87.6 % (94-98)
--- NOTE | 2016-12-03 13:57 | PDOC CONSULTATION ---
Consultation Consult Date: 12/03/16 Attending physician:: DANA DEE Consult reason:: acute/chronic resp failure History of Present Illness Admission Date/PCP: 12/03/16 06:00 NATALIA COX, History of Present Illness: MARIANO HENRY is a 71 year old female a past medical history pneumonia, diastolic heart failure, severe pulmonary hypertension, atrial fibrillation, obstructive sleep apnea, morbid obesity, hypoventilation syndrome, venous stasis , deep vein thrombosis, stage III chronic kidney disease, renal insufficiency and recent GI bleed. She was transferred to [facility] and 24 hours ago from [facility] in [facility] scheduled Xanax. skilled nursing staff were challenged by hypoxia and difficulty applying BiPAP and subsequently transferred to the emergency room for evaluation where she was found to be obtunded. Her workup reveals a right upper lobe infiltrate, and hypercapnic respiratory failure. She started on empiric BiPAP and referred to the hospitalist for admission. Her CODE STATUS is DNR. She is unable to provide history. Past Medical History Cardiac Medical History: Reports: Atrial Fibrillation, Congestive Heart Failure , DVT, Hyperlipidema, Hypertension Denies: Pulmonary Embolism Pulmonary Medical History: Reports: Chronic Obstructive Pulmonary Disease (COPD) , Sleep Apnea Neurological Medical History: Denies: Seizures Endocrine Medical History: Reports: Hypothyroidism Denies: Diabetes Mellitus Type 1, Diabetes Mellitus Type 2, Hyperthyroidism GI Medical History: Denies: Cirrhosis, Hepatitis Musculoskeltal Medical History: Reports: Arthritis Psychiatric Medical History: Denies: Depression Infectious Medical History: Denies: Clostridium Difficile, Methicillin-Resistant Staph Aureus Past Surgical History Past Surgical History: Reports: Orthopedic Surgery, Tonsillectomy Social History Information Source: [facility] Records Smoking Status: Former Smoker Passive smoke exposure as: Both Frequency of Alcohol Use: Heavy Drugs: None Hx Prescription Drug Abuse: No Family History Family History: Reviewed & Not Pertinent, Other - And unable to provide history Parental Family History Reviewed: No Children Family History Reviewed: No Sibling(s) Family History Reviewed.: No Medication/Allergy Home Medications: Alprazolam [Xanax 0.25 mg Tablet] 0.25 mg PO QIDP PRN 12/03/16 Bumetanide [Bumex 1 mg Tablet] 1 mg PO BID 12/03/16 Diclofenac Sodium [Voltaren] 1 applic TOP DAILYP PRN 12/03/16 Ipratropium/Albuterol Sulfate [Iprat-Albut 0.5-3(2.5) mg/3 ml] 3 ml NEB QID Levothyroxine Sodium [Synthroid 0.15 mg Tablet] 0.15 mg PO DAILY 12/03/16 Potassium Chloride [K-Tab ER] 20 meq PO BID 12/03/16 Allergies/Adverse Reactions: codeine [Codeine] Adverse Reaction (Mild, Verified 11/04/16 04:23) VOMITING morphine Adverse Reaction (Verified 11/04/16 04:23) oxycodone [From Percocet] Adverse Reaction (Verified 11/04/16 04:23) prednisone Adverse Reaction (Verified 11/04/16 04:23) Review of Systems ROS unobtainable: Due to mental status Physical Exam Vital Signs: Temp Pulse Resp BP Pulse Ox 98.6 F 88 21 H 128/71 H 93 12/03/16 09:39 12/03/16 11:47 12/03/16 11:47 12/03/16 09:41 12/03/16 09:41 Intake & Output 12/02/16 12/03/16 12/04/16 06:59 06:59 06:59 Weight 118.7 kg General appearance: PRESENT: disheveled, mild distress, morbidly obese, well- developed Head exam: PRESENT: atraumatic, normocephalic Eye exam: PRESENT: conjunctiva pale, EOMI Mouth exam: PRESENT: dry mucosa, neck supple Neck exam: ABSENT: carotid bruit, JVD, lymphadenopathy, thyromegaly Respiratory exam: PRESENT: decreased breath sounds, prolonged expiratory phas, rhonchi, symmetrical, unlabored Cardiovascular exam: PRESENT: RRR, +S1, +S2 GI/Abdominal exam: PRESENT: normal bowel sounds, soft. ABSENT: distended, guarding, mass, organolmegaly, rebound, tenderness Rectal exam: PRESENT: deferred Gentrourinary exam: PRESENT: indwelling catheter Musculoskeletal exam: PRESENT: normal inspection Neurological exam: PRESENT: alert, awake Psychiatric exam: PRESENT: normal mood Skin exam: PRESENT: dry, warm Results Laboratory Results: 12/03/16 12:55 Carbonic Acid 2.54 H HCO3/H2CO3 Ratio 19:1 ABG pH 7.38 ABG pCO2 84.4 H* ABG pO2 57.7 L ABG HCO3 49.0 H ABG O2 Saturation 87.6 L ABG Base Excess 20.6 FiO2 55% 12/03/16 12/03/16 12/03/16 06:20 06:20 12:02 Creatine Kinase < 20 L < 20 L CK-MB (CK-2) 0.55 Troponin I 0.028 12/03/16 12:02 Creatine Kinase CK-MB (CK-2) 0.47 Troponin I 0.018 Impressions: Chest X-Ray 12/03/16 02:11 IMPRESSION: Increased, moderate -large bilateral hemithoracic opacification, left more than right. Assessment & Plan - Diagnosis (1) COPD with acute exacerbation Is this a current diagnosis for this admission?: Yes (2) Hypoxia Is this a current diagnosis for this admission?: Yes (3) Obesity hypoventilation syndrome Is this a current diagnosis for this admission?: Yes (4) Acute and chronic respiratory failure with hypercapnia Is this a current diagnosis for this admission?: Yes (5) Obstructive sleep apnea Is this a current diagnosis for this admission?: Yes (6) Tobacco dependency Is this a current diagnosis for this admission?: Yes - Time Critical Time spent with patient: 35 or more minutes - 55 min
--- NOTE | 2016-12-03 16:58 | PDOC PROGRESS REPORT ---
Subjective Progress Note for:: 12/03/16 Subjective:: MARIANO HENRY is a 71 year old female a past medical history pneumonia, diastolic heart failure, severe pulmonary hypertension, atrial fibrillation, obstructive sleep apnea, morbid obesity, hypoventilation syndrome, venous stasis , deep vein thrombosis, stage III chronic kidney disease, renal insufficiency and recent GI bleed. She was transferred to [facility] and 24 hours ago from [facility] in [facility] scheduled Xanax. detention staff were challenged by hypoxia and difficulty applying BiPAP and subsequently transferred to the emergency room for evaluation where she was found to be obtunded. Her workup reveals a right upper lobe infiltrate, and hypercapnic respiratory failure. She started on empiric BiPAP and referred to the hospitalist for admission. Her CODE STATUS is DNR. She is unable to provide history. She was admitted overnight, and this morning she remains on BiPAP and unable to give much history. Physical Exam Vital Signs: Temp Pulse Resp BP Pulse Ox 97.9 F 62 18 113/60 92 12/03/16 16:00 12/03/16 16:31 12/03/16 16:31 12/03/16 16:31 12/03/16 16:31 Intake & Output 12/02/16 12/03/16 12/04/16 06:59 06:59 06:59 Weight 118.7 kg Additional comments: General appearance: PRESENT: morbidly obese, moderate distress Head exam: PRESENT: atraumatic, normocephalic Eye exam: PRESENT: conjunctiva pink, EOMI, PERRLA. ABSENT: scleral icterus Ear exam: PRESENT: normal external ear exam Mouth exam: PRESENT: dry mucosa, tongue midline Neck exam: ABSENT: carotid bruit, JVD, lymphadenopathy, thyromegaly Respiratory exam: PRESENT: accessory muscle use, crackles, prolonged expiratory phase, poor air movement. ABSENT: rales, rhonchi, wheezes Cardiovascular exam: PRESENT: irregular rhythm, RRR. ABSENT: diastolic murmur, rubs, systolic murmur Pulses: PRESENT: normal dorsalis pedis pul GI/Abdominal exam: PRESENT: normal bowel sounds, soft. ABSENT: distended, guarding, mass, organolmegaly, rebound, tenderness Rectal exam: PRESENT: deferred Extremities exam: PRESENT: full ROM, other - Chronic changes of venous stasis. ABSENT: calf tenderness, clubbing, pedal edema Neurological exam: PRESENT: altered Skin exam: PRESENT: other - Dehydrated and chronic changes of venous stasis Results Laboratory Results: 12/03/16 12:55 Carbonic Acid 2.54 H HCO3/H2CO3 Ratio 19:1 ABG pH 7.38 ABG pCO2 84.4 H* ABG pO2 57.7 L ABG HCO3 49.0 H ABG O2 Saturation 87.6 L ABG Base Excess 20.6 FiO2 55% 12/03/16 12/03/16 12/03/16 06:20 06:20 12:02 Creatine Kinase < 20 L < 20 L CK-MB (CK-2) 0.55 Troponin I 0.028 12/03/16 12:02 Creatine Kinase CK-MB (CK-2) 0.47 Troponin I 0.018 Impressions: Chest X-Ray 12/03/16 02:11 IMPRESSION: Increased, moderate -large bilateral hemithoracic opacification, left more than right. Assessment & Plan - Diagnosis (1) CHF (congestive heart failure) Qualifiers: Congestive heart failure type: unspecified congestive heart failure type Congestive heart failure chronicity: chronic Qualified Code(s): I50.9 - Heart failure, unspecified Is this a current diagnosis for this admission?: YesPlan: Acute on chronic CHF. Currently decompensated. Will continue current Rx and monitor. Will ask cardiology to see. (2) Obesity hypoventilation syndrome Is this a current diagnosis for this admission?: YesPlan: On BiPAP. (3) Obstructive sleep apnea Is this a current diagnosis for this admission?: YesPlan: On BiPAP. (4) COPD with acute exacerbation Is this a current diagnosis for this admission?: Yes (5) Pneumonia Is this a current diagnosis for this admission?: YesPlan: This was probably a treated at [facility] there recently, with discharge on 2015. Current chest x-ray still shows left upper lobe infiltrate/atelectasis. She is on empiric vancomycin and Rocephin. (6) Hypercarbia Is this a current diagnosis for this admission?: YesPlan: On BiPAP. Will check follow-up ABG in the morning. (7) Hypoxia Is this a current diagnosis for this admission?: YesPlan: O2 supplementation as needed.
[2016-12-03] MEDS: VANCOMYCIN HCL 750 MG in DEXTROSE 5%-WATER 250 ML IV SCH (17:31)
[2016-12-03 18:58] LABS: CREATINE KINASE MB 0.32 ng/mL (<4.55); TROPONIN I 0.016 ng/mL
--- NOTE | 2016-12-03 19:40 | PDOC CONSULTATION ---
Consultation Consult Date: 12/03/16 Attending physician:: MONIKA GEIGER Consult reason:: Congestive heart failure History of Present Illness Admission Date/PCP: 12/03/16 06:00 NATALIA COX, Patient complains of: Shortness of breath History of Present Illness: MARIANO HENRY is a 71 year old female a past medical history pneumonia, diastolic heart failure, severe pulmonary hypertension, atrial fibrillation, obstructive sleep apnea, morbid obesity, hypoventilation syndrome, venous stasis , deep vein thrombosis, stage III chronic kidney disease, renal insufficiency and recent GI bleed. She was transferred to [facility] and 24 hours ago from [facility] in [facility] scheduled Xanax. halfway staff were challenged by hypoxia and difficulty applying BiPAP and subsequently transferred to the emergency room for evaluation where she was found to be obtunded. Her workup reveals a right upper lobe infiltrate, and hypercapnic respiratory failure. She started on empiric BiPAP and referred to the hospitalist for admission. Patient improved significantly on positive pressure noninvasive ventilation. During last admission patient had problems with GI bleed. It seems at [facility], her anticoagulation was stopped and the family claims that her bleeding stopped. Patient has history of atrial fibrillation for which she was on chronic anticoagulation. Her CODE STATUS is DNR. Past Medical History Cardiac Medical History: Reports: Atrial Fibrillation, Congestive Heart Failure , DVT, Hyperlipidema, Hypertension Denies: Pulmonary Embolism Pulmonary Medical History: Reports: Chronic Obstructive Pulmonary Disease (COPD) , Sleep Apnea Neurological Medical History: Denies: Seizures Endocrine Medical History: Reports: Hypothyroidism Denies: Diabetes Mellitus Type 1, Diabetes Mellitus Type 2, Hyperthyroidism GI Medical History: Denies: Cirrhosis, Hepatitis Musculoskeltal Medical History: Reports: Arthritis Psychiatric Medical History: Denies: Depression Infectious Medical History: Denies: Clostridium Difficile, Methicillin-Resistant Staph Aureus Past Surgical History Past Surgical History: Reports: Orthopedic Surgery, Tonsillectomy Social History Smoking Status: Former Smoker Frequency of Alcohol Use: Heavy Drugs: None Hx Prescription Drug Abuse: No Family History Family History: Reviewed & Not Pertinent, Other - And unable to provide history Parental Family History Reviewed: Yes Children Family History Reviewed: Yes Sibling(s) Family History Reviewed.: Yes Medication/Allergy Home Medications: Alprazolam [Xanax 0.25 mg Tablet] 0.25 mg PO QIDP PRN 12/03/16 Bumetanide [Bumex 1 mg Tablet] 1 mg PO BID 12/03/16 Diclofenac Sodium [Voltaren] 1 applic TOP DAILYP PRN 12/03/16 Ipratropium/Albuterol Sulfate [Iprat-Albut 0.5-3(2.5) mg/3 ml] 3 ml NEB QID Levothyroxine Sodium [Synthroid 0.15 mg Tablet] 0.15 mg PO DAILY 12/03/16 Potassium Chloride [K-Tab ER] 20 meq PO BID 12/03/16 Allergies/Adverse Reactions: codeine [Codeine] Adverse Reaction (Mild, Verified 11/04/16 04:23) VOMITING morphine Adverse Reaction (Verified 11/04/16 04:23) oxycodone [From Percocet] Adverse Reaction (Verified 11/04/16 04:23) prednisone Adverse Reaction (Verified 11/04/16 04:23) Physical Exam Vital Signs: Temp Pulse Resp BP Pulse Ox 97.7 F 72 18 118/85 93 12/03/16 18:00 12/03/16 18:00 12/03/16 18:00 12/03/16 18:00 12/03/16 18:00 Intake & Output 12/02/16 12/03/16 12/04/16 06:59 06:59 06:59 Intake Total 250 Balance 250 Weight 118.7 kg Exam: GENERAL: well-nourished and in mild respiratory distress. Alert and oriented x3 HEAD: Atraumatic, normocephalic. EYES: Pupils equal round and reactive to light, extraocular movements intact, sclera anicteric, conjunctiva are normal. ENT: TMs normal, nares patent, oropharynx clear without exudates. Moist mucous membranes. No oral ulcerations or bleeding gums noted NECK: supple without lymphadenopathy. Trachea is central. No cervical or axillary lymphadenopathy noted. Carotids are 2+, JVD WNL LUNGS: Respiration seems mildly labored, no significant accessory muscle action noted. Few bibasilar fine crackles and wheezing noted. CHEST: Palpation of the chest wall shows no significant chest wall tenderness. No other significant abnormalities noted. 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 ABDOMEN: Soft, no significant tenderness appreciated, normoactive bowel sounds. No guarding, no rebound. No rigidity noted . No masses appreciated. EXTREMITIES: Pedal pulses are 1-2+, no calf tenderness noted. No clubbing or cyanosis.1-2 + pedal edema noted. Some chronic lymphedema noted NEUROLOGICAL: Focused neurological exam showed no significant neurologic deficit. Normal speech, no focal weakness appreciated. PSYCH: Normal mood, normal affect. Judgment and insight within normal limits. SKIN: No significant ecchymosis, rash, ulcerations or signs of pruritus noted. MUSCULOSKELETAL EXAM: No significant joint swelling noted. Results Laboratory Results: 12/03/16 12:55 Carbonic Acid 2.54 H HCO3/H2CO3 Ratio 19:1 ABG pH 7.38 ABG pCO2 84.4 H* ABG pO2 57.7 L ABG HCO3 49.0 H ABG O2 Saturation 87.6 L ABG Base Excess 20.6 FiO2 55% 12/03/16 12/03/16 12/03/16 06:20 06:20 12:02 Creatine Kinase < 20 L < 20 L CK-MB (CK-2) 0.55 Troponin I 0.028 12/03/16 12/03/16 12/03/16 12:02 18:20 18:20 Creatine Kinase < 20 L CK-MB (CK-2) 0.47 0.32 Troponin I 0.018 0.016 Impressions: Chest X-Ray 12/03/16 02:11 IMPRESSION: Increased, moderate -large bilateral hemithoracic opacification, left more than right. Assessment & Plan - Diagnosis (1) CHF (congestive heart failure) Qualifiers: Congestive heart failure type: unspecified congestive heart failure type Congestive heart failure chronicity: chronic Qualified Code(s): I50.9 - Heart failure, unspecified Is this a current diagnosis for this admission?: Yes (2) Atrial fibrillation Qualifiers: Atrial fibrillation type: chronic Qualified Code(s): I48.2 - Chronic atrial fibrillation Is this a current diagnosis for this admission?: Yes (3) Acute and chronic respiratory failure with hypercapnia Is this a current diagnosis for this admission?: Yes (4) COPD with acute exacerbation Is this a current diagnosis for this admission?: Yes (5) Obesity hypoventilation syndrome Is this a current diagnosis for this admission?: Yes (6) Pneumonia Qualifiers: Pneumonia type: due to unspecified organism Lung location: unspecified part of lung Is this a current diagnosis for this admission?: Yes (7) Pulmonary hypertension Is this a current diagnosis for this admission?: Yes - Notes Notes: Congestive heart failure: There is acute on chronic CHF exacerbation. Patient has predominantly diastolic and right-sided heart failure. Recommend loop diuretic along with spironolactone. Satisfactory correction of hypoxemia will help. COPD with exacerbation: Continue bronchodilator therapy. Atrial fibrillation: Patient has chronic atrial fibrillation. There is relative contraindication to chronic Coumadin therapy or other chronic anticoagulation due to significant history of GI bleed Pulmonary hypertension: Patient noted to have severe pulmonary hypertension on recent echocardiogram from October 2016 this is a poor prognostic sign. Pneumonia: Continue antibiotic therapy. History of arterial hypotension: This was noted during previous admission patient on midodrine therapy. Acute on chronic respiratory failure with hypercapnia and hypoxemia: Continue oxygen supplementation and positive pressure ventilation. Pulmonary following. Overall prognosis is poor. Patient DNR. - Time Time Spent: 30 to 50 Minutes Medications reviewed and adjusted accordingly: Yes
[2016-12-03] MEDS: ATORVASTATIN CALCIUM 40 MG TABLET PO SCH (22:11)
[2016-12-04] MEDS: IPRATROPIUM/ALBUTEROL 0.5-2.5 MG/3 ML AMPUL NEB SCH ×6 (00:21→20:23)
[2016-12-04 05:07] LABS: ABSOLUTE LYMPHOCYTES (AUTO) 0.6 10^3/uL (0.5-4.7); ABSOLUTE MONOCYTES (AUTO) 0.3 10^3/uL (0.1-1.4); ABSOLUTE NEUT (AUTO) 5.4 10^3/uL (1.7-8.2); BASOPHILS % (AUTO) 0.3 % (0-2); HEMATOCRIT 27.8 % (36.0-47.0); HGB HCT DIFFERENCE -0.8; LYMPHOCYTES % (AUTO) 9.5 % (13-45); MEAN CORPUSCULAR HEMOGLOBIN 30.2 pg (27.0-33.4); MEAN CORPUSCULAR HGB CONC 32.3 g/dL (32.0-36.0); MEAN CORPUSCULAR VOLUME 94 fl (80-97); RED BLOOD COUNT 2.97 10^6/uL (3.72-5.28); RED CELL DISTRIBUTION WIDTH 19.7 % (11.5-14.0); SEGMENTED NEUTROPHILS % (AUTO) 85.2 % (42-78); WHITE BLOOD COUNT 6.4 10^3/uL (4.0-10.5)
[2016-12-04 05:28] LABS: ANION GAP 10 (5-19); BLOOD UREA NITROGEN 41 mg/dL (7-20); CALCIUM 8.8 mg/dL (8.4-10.2); CHLORIDE 90 mmol/L (98-107); CREATININE RESULT 1.16 mg/dL (0.52-1.25); GLUCOSE 101 mg/dL (75-110); POTASSIUM 3.7 mmol/L (3.6-5.0); SODIUM 139.9 mmol/L (137-145)
[2016-12-04 05:46] LABS: CARBON DIOXIDE 40 mmol/L (22-30)
[2016-12-04] MEDS: HEPARIN SOD (PORCINE) 5,000 UNIT/ML 1 ML SYRINGE SUBCUT SCH ×3 (06:10→21:52)
[2016-12-04] MEDS: VANCOMYCIN HCL 750 MG in DEXTROSE 5%-WATER 250 ML IV SCH ×2 (06:10→17:17)
[2016-12-04] MEDS: LEVOTHYROXINE SODIUM 0.15 MG TABLET PO SCH (06:10)
--- NOTE | 2016-12-04 08:42 | RADIOLOGY REPORT (SQ) ---
EXAM DESCRIPTION: CHEST SINGLE VIEW COMPLETED DATE/TIME: 12/04/2016 8:19 am REASON FOR STUDY: resp failure COMPARISON: Chest films 10/22/2016, 11/09/2016, 11/14/2016, 12/03/2016 EXAM PARAMETERS: NUMBER OF VIEWS: One view. TECHNIQUE: Single frontal radiographic view of the chest acquired. RADIATION DOSE: NA LIMITATIONS: Lordotic portable chest film, obese patient FINDINGS: LUNGS AND PLEURA: Suspect trace pleural fluid on the right, with hazy opacity over the rig ht hemidiaphragm. This is similar compared to 12/03/2016 but new compared to 10/22/2016. There are air bronchograms in the left retrocardiac region, atelectasis versus pneumonia. This is si milar compared to 12/03/2016 and 11/14/2016. Underlying small left pleural effusion could not be exclud ed. No pneumothorax MEDIASTINUM AND HILAR STRUCTURES: No masses. Contour normal. HEART AND VASCULAR STRUCTURES: Stable cardiomegaly BONES: No acute findings. HARDWARE: None in the chest. OTHER: No other significant finding. IMPRESSION: Persistent left lower lobe air bronchograms from collapse/ consolidation. Pneumonia cou ld not be excluded. Small right pleural effusion. Suspect a small left pleural effusion. These findings are similar com pared to 12/03/2016 and new compared to 10/22/2016. TECHNICAL DOCUMENTATION: JOB ID: [id number]
[2016-12-04] MEDS ORDERED: FUROSEMIDE 40 MG TABLET PO SCH (10:00)
[2016-12-04] MEDS: CEFTRIAXONE 1 GM/D5W RTU 1 GM/50 ML RTUPB IV SCH (10:09)
[2016-12-04] MEDS: GABAPENTIN 300 MG CAPSULE PO SCH ×2 (10:10→21:52)
[2016-12-04] MEDS: ATENOLOL 50 MG TABLET PO SCH (10:10)
[2016-12-04] MEDS: SPIRONOLACTONE 25 MG TABLET PO SCH (10:10)
[2016-12-04] MEDS: THIAMINE HCL 100 MG TABLET PO SCH (10:11)
[2016-12-04] MEDS: MIDODRINE HCL 5 MG TABLET PO SCH ×3 (10:12→17:16)
[2016-12-04] MEDS: DOCUSATE SODIUM 100 MG CAPSULE PO SCH ×2 (10:12→17:17)
[2016-12-04] MEDS: SILDENAFIL CITRATE 20 MG TABLET PO SCH ×3 (10:12→17:16)
--- NOTE | 2016-12-04 11:00 | PDOC PROGRESS REPORT ---
Subjective Progress Note for:: 12/04/16 Subjective:: MARIANO HENRY is a 71 year old female a past medical history pneumonia, diastolic heart failure, severe pulmonary hypertension, atrial fibrillation, obstructive sleep apnea, morbid obesity, hypoventilation syndrome, venous stasis , deep vein thrombosis, stage III chronic kidney disease, renal insufficiency and recent GI bleed. She was transferred to [facility] and 24 hours ago from [facility] in [facility] on scheduled Xanax. senior living staff were challenged by hypoxia and difficulty applying BiPAP and subsequently transferred to the emergency room for evaluation where she was found to be obtunded. Her workup reveals a right upper lobe infiltrate , and hypercapnic respiratory failure. She started on empiric BiPAP and referred to the hospitalist for admission. Her CODE STATUS is DNR. She is unable to provide history. Physical Exam Vital Signs: Temp Pulse Resp BP Pulse Ox 98.3 F 68 16 118/61 95 12/04/16 08:11 12/04/16 08:23 12/04/16 08:23 12/04/16 08:11 12/04/16 08:23 Intake & Output 12/03/16 12/04/16 12/05/16 06:59 06:59 06:59 Intake Total 1230 Output Total 350 Balance 880 Weight 118 kg Additional comments: General appearance: PRESENT: morbidly obese, moderate distress, remains on BiPAP Head exam: PRESENT: atraumatic, normocephalic Eye exam: PRESENT: conjunctiva pink, EOMI, PERRLA. ABSENT: scleral icterus Ear exam: PRESENT: normal external ear exam Mouth exam: PRESENT: dry mucosa, tongue midline Neck exam: ABSENT: carotid bruit, JVD, lymphadenopathy, thyromegaly Respiratory exam: PRESENT: crackles, prolonged expiratory phase, air movement slightly improved, slight wheezes Cardiovascular exam: PRESENT: irregular rhythm, RRR. ABSENT: diastolic murmur, rubs, systolic murmur Pulses: PRESENT: normal dorsalis pedis pul GI/Abdominal exam: PRESENT: normal bowel sounds, soft. ABSENT: distended, guarding, mass, organolmegaly, rebound, tenderness Rectal exam: PRESENT: deferred Extremities exam: PRESENT: full ROM, 2+ edema LE's, other - Chronic changes of venous stasis. ABSENT: calf tenderness, clubbing, Neurological exam: PRESENT: altered Skin exam: PRESENT: other - Dehydrated and chronic changes of venous stasis Results Laboratory Results: 12/04/16 04:31 12/04/16 04:31 12/03/16 12/04/16 12/04/16 12:55 04:31 04:31 WBC 6.4 RBC 2.97 L Hgb 9.0 L Hct 27.8 L MCV 94 MCH 30.2 MCHC 32.3 RDW 19.7 H Plt Count 344 Seg Neutrophils % 85.2 H Lymphocytes % 9.5 L Monocytes % 5.0 Eosinophils % 0.0 Basophils % 0.3 Absolute Neutrophils 5.4 Absolute Lymphocytes 0.6 Absolute Monocytes 0.3 Absolute Eosinophils 0.0 Absolute Basophils 0.0 Carbonic Acid 2.54 H HCO3/H2CO3 Ratio 19:1 ABG pH 7.38 ABG pCO2 84.4 H* ABG pO2 57.7 L ABG HCO3 49.0 H ABG O2 Saturation 87.6 L ABG Base Excess 20.6 FiO2 55% Sodium 139.9 Potassium 3.7 Chloride 90 L Carbon Dioxide 40 H* Anion Gap 10 BUN 41 H Creatinine 1.16 Est GFR ( Amer) 56 L Est GFR (Non-Af Amer) 46 L Glucose 101 Calcium 8.8 12/03/16 12/03/16 12/03/16 06:20 06:20 12:02 Creatine Kinase < 20 L < 20 L CK-MB (CK-2) 0.55 Troponin I 0.028 NT-Pro-B Natriuret Pep 12/03/16 12/03/16 12/03/16 12:02 18:20 18:20 Creatine Kinase < 20 L CK-MB (CK-2) 0.47 0.32 Troponin I 0.018 0.016 NT-Pro-B Natriuret Pep 12/04/16 04:31 Creatine Kinase CK-MB (CK-2) Troponin I NT-Pro-B Natriuret Pep [id number] H Impressions: Chest X-Ray 12/04/16 06:00 IMPRESSION: Persistent left lower lobe air bronchograms from collapse/ consolidation. Pneumonia could not be excluded. Small right pleural effusion. Suspect a small left pleural effusion. These findings are similar compared to 12/03/2016 and new compared to 10/22/2016. Assessment & Plan - Diagnosis (1) CHF (congestive heart failure) Qualifiers: Congestive heart failure type: unspecified congestive heart failure type Congestive heart failure chronicity: chronic Qualified Code(s): I50.9 - Heart failure, unspecified Is this a current diagnosis for this admission?: YesPlan: Acute on chronic CHF. Currently decompensated. Will continue current Rx and monitor. Cardiology following. Medications have been adjusted. The patient is perhaps feeling a bit better. We will continue current approach. (2) Obesity hypoventilation syndrome Is this a current diagnosis for this admission?: YesPlan: Remains on BiPAP. (3) Obstructive sleep apnea Is this a current diagnosis for this admission?: YesPlan: Remains on BiPAP. (4) COPD with acute exacerbation Is this a current diagnosis for this admission?: Yes (5) Pneumonia Qualifiers: Pneumonia type: due to unspecified organism Lung location: unspecified part of lung Is this a current diagnosis for this admission?: YesPlan: This was probably a treated at [facility] there recently, with discharge on 2015. Current chest x-ray still shows left lower lobe infiltrate/atelectasis. She is on empiric vancomycin and Rocephin. Will add guaifenesin. (6) Hypercarbia Is this a current diagnosis for this admission?: YesPlan: On BiPAP. Will check follow-up ABG. (7) Hypoxia Is this a current diagnosis for this admission?: YesPlan: O2 supplementation as needed.
[2016-12-04 11:36] LABS: ARTERIAL BLOOD BASE EXCESS 16.4 mmol/L; ARTERIAL BLOOD O2 SATURATION 91.6 % (94-98)
[2016-12-04] MEDS ORDERED: GUAIFENESIN 600 MG TABLET.SA PO ONE (12:00)
--- NOTE | 2016-12-04 18:34 | PDOC PROGRESS REPORT ---
<ANASTASIYA CHAU - Last Filed: 12/04/16 18:32> Subjective Progress Note for:: 12/04/16 Subjective:: Patient seems to be doing slightly better but still short of breath. Pt is denying any chest arm or neck discomfort. Patient denying any PND, orthopnea. Patient denied any sustained palpitations, dizziness, syncope, near syncope. Patient denying any fever chills. Patient denying any other significant discomfort. Patient is maintaining chronic atrial fibrillation patient declines chronic anticoagulation. Review of systems: Rest review of systems negative. Medications: Medications have been reviewed. Physical Exam Vital Signs: Temp Pulse Resp BP Pulse Ox 97.4 F 57 L 25 H 117/57 L 98 12/04/16 16:21 12/04/16 16:25 12/04/16 16:25 12/04/16 16:21 12/04/16 16:25 Intake & Output 12/03/16 12/04/16 12/05/16 06:59 06:59 06:59 Intake Total 1230 350 Output Total 350 Balance 880 350 Weight 118 kg Exam: GENERAL: well-nourished and in mild respiratory distress. Alert and oriented x3 patient wearing bilevel mask and therapy when seen. HEAD: Atraumatic, normocephalic. EYES: Pupils equal round and reactive to light, extraocular movements intact, sclera anicteric, conjunctiva are normal. ENT: TMs normal, nares patent, oropharynx clear without exudates. Moist mucous membranes. No oral ulcerations or bleeding gums noted NECK: supple without lymphadenopathy. Trachea is central. No cervical or axillary lymphadenopathy noted. Carotids are 2+, JVD WNL LUNGS: Respiration seems mildly labored, no significant accessory muscle action noted. Few bibasilar fine crackles and wheezing noted. CHEST: Palpation of the chest wall shows no significant chest wall tenderness. No other significant abnormalities noted. 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 ABDOMEN: Soft, no significant tenderness appreciated, normoactive bowel sounds. No guarding, no rebound. No rigidity noted . No masses appreciated. EXTREMITIES: Pedal pulses are 1-2+, no calf tenderness noted. No clubbing or cyanosis.1-2 + pedal edema noted. Some chronic lymphedema noted NEUROLOGICAL: Focused neurological exam showed no significant neurologic deficit. Normal speech, no focal weakness appreciated. PSYCH: Normal mood, normal affect. Judgment and insight within normal limits. SKIN: No significant ecchymosis, rash, ulcerations or signs of pruritus noted. MUSCULOSKELETAL EXAM: No significant joint swelling noted. Results Laboratory Results: 12/04/16 04:31 12/04/16 04:31 12/04/16 12/04/16 12/04/16 04:31 04:31 11:20 WBC 6.4 RBC 2.97 L Hgb 9.0 L Hct 27.8 L MCV 94 MCH 30.2 MCHC 32.3 RDW 19.7 H Plt Count 344 Seg Neutrophils % 85.2 H Lymphocytes % 9.5 L Monocytes % 5.0 Eosinophils % 0.0 Basophils % 0.3 Absolute Neutrophils 5.4 Absolute Lymphocytes 0.6 Absolute Monocytes 0.3 Absolute Eosinophils 0.0 Absolute Basophils 0.0 Carbonic Acid 1.70 H HCO3/H2CO3 Ratio 24:1 ABG pH 7.49 H ABG pCO2 56.5 H ABG pO2 58.3 L ABG HCO3 42.3 H ABG O2 Saturation 91.6 L ABG Base Excess 16.4 FiO2 55% Sodium 139.9 Potassium 3.7 Chloride 90 L Carbon Dioxide 40 H* Anion Gap 10 BUN 41 H Creatinine 1.16 Est GFR ( Amer) 56 L Est GFR (Non-Af Amer) 46 L Glucose 101 Calcium 8.8 12/03/16 12/03/16 12/03/16 06:20 06:20 12:02 Creatine Kinase < 20 L < 20 L CK-MB (CK-2) 0.55 Troponin I 0.028 NT-Pro-B Natriuret Pep 12/03/16 12/03/16 12/03/16 12:02 18:20 18:20 Creatine Kinase < 20 L CK-MB (CK-2) 0.47 0.32 Troponin I 0.018 0.016 NT-Pro-B Natriuret Pep 12/04/16 04:31 Creatine Kinase CK-MB (CK-2) Troponin I NT-Pro-B Natriuret Pep [id number] H Impressions: Chest X-Ray 12/04/16 06:00 IMPRESSION: Persistent left lower lobe air bronchograms from collapse/ consolidation. Pneumonia could not be excluded. Small right pleural effusion. Suspect a small left pleural effusion. These findings are similar compared to 12/03/2016 and new compared to 10/22/2016. Assessment & Plan - Diagnosis (1) CHF (congestive heart failure) Qualifiers: Congestive heart failure type: unspecified congestive heart failure type Congestive heart failure chronicity: chronic Qualified Code(s): I50.9 - Heart failure, unspecified Is this a current diagnosis for this admission?: Yes (2) Atrial fibrillation Qualifiers: Atrial fibrillation type: chronic Qualified Code(s): I48.2 - Chronic atrial fibrillation Is this a current diagnosis for this admission?: Yes (3) Acute and chronic respiratory failure with hypercapnia Is this a current diagnosis for this admission?: Yes (4) COPD with acute exacerbation Is this a current diagnosis for this admission?: Yes (5) Obesity hypoventilation syndrome Is this a current diagnosis for this admission?: Yes (6) Pneumonia Qualifiers: Pneumonia type: due to unspecified organism Lung location: unspecified part of lung Is this a current diagnosis for this admission?: Yes (7) Pulmonary hypertension Is this a current diagnosis for this admission?: Yes - Notes Notes: Congestive heart failure: There is acute on chronic CHF exacerbation. Patient has predominantly diastolic and right-sided heart failure. Recommend loop diuretic along with spironolactone. Satisfactory correction of hypoxemia will help. Patient was initially placed on furosemide but patient claims that it caused her to bleed therefore patient was switched over to Bumex. Patient also started on spironolactone. COPD with exacerbation: Continue bronchodilator therapy. 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 Atrial fibrillation: Patient has chronic atrial fibrillation. There is relative contraindication to chronic Coumadin therapy or other chronic anticoagulation due to significant history of GI bleed. Pulmonary hypertension: Patient noted to have severe pulmonary hypertension on recent echocardiogram from October 2016 this is a poor prognostic sign. Pneumonia: Continue antibiotic therapy. History of arterial hypotension: This was noted during previous admission patient on midodrine therapy. Currently stable. Continue methadone therapy. Acute on chronic respiratory failure with hypercapnia and hypoxemia: Continue oxygen supplementation and positive pressure ventilation. Pulmonary following. Overall prognosis is poor. Patient DNR. Dr. Rajan covering from tomorrow. - Time Time with patient: 15-25 minutes - CODE STATUS : was discussed, patient remains DO NOT RESUSCITATE. Surrogate decision-maker significant other. Multiple medical problems were addressed. More than 50% of the time spent coordinating care, discussing management plans with involved caregivers. Management plans discussed with involved personnels. Medical decision making was of moderate to high complexity, patient's has multiple comorbidities. <THOMAS BLANCA - Last Filed: 12/05/16 11:19> Physical Exam Vital Signs: Temp Pulse Resp BP Pulse Ox 97.8 F 57 L 19 119/69 90 L 12/05/16 07:27 12/05/16 08:58 12/05/16 08:58 12/05/16 07:27 12/05/16 08:58 Intake & Output 12/04/16 12/05/16 12/06/16 06:59 06:59 06:59 Intake Total 1230 620 Output Total 350 200 Balance 880 420 Weight 118 kg 122.4 kg Results Laboratory Results: 12/04/16 04:31 12/05/16 05:44 12/04/16 12/05/16 11:20 05:44 Carbonic Acid 1.70 H HCO3/H2CO3 Ratio 24:1 ABG pH 7.49 H ABG pCO2 56.5 H ABG pO2 58.3 L ABG HCO3 42.3 H ABG O2 Saturation 91.6 L ABG Base Excess 16.4 FiO2 55% Sodium 139.4 Potassium 3.5 L Chloride 89 L Carbon Dioxide 42 H* Anion Gap 8 BUN 45 H Creatinine 1.12 Est GFR ( Amer) 58 L Est GFR (Non-Af Amer) 48 L Glucose 86 Calcium 9.0 12/03/16 12/03/16 12/03/16 06:20 06:20 12:02 Creatine Kinase < 20 L < 20 L CK-MB (CK-2) 0.55 Troponin I 0.028 NT-Pro-B Natriuret Pep 12/03/16 12/03/16 12/03/16 12:02 18:20 18:20 Creatine Kinase < 20 L CK-MB (CK-2) 0.47 0.32 Troponin I 0.018 0.016 NT-Pro-B Natriuret Pep 12/04/16 04:31 Creatine Kinase CK-MB (CK-2) Troponin I NT-Pro-B Natriuret Pep [id number] H Impressions: Chest X-Ray 05/26/17 06:00 IMPRESSION: Persistent left lower lobe air bronchograms from collapse/ consolidation. Pneumonia could not be excluded. Small right pleural effusion. Suspect a small left pleural effusion. These findings are similar compared to 12/03/2016 and new compared to 10/22/2016. Assessment & Plan - Diagnosis (3) CHF (congestive heart failure) Qualifiers: Congestive heart failure type: unspecified congestive heart failure type Congestive heart failure chronicity: chronic Qualified Code(s): I50.9 - Heart failure, unspecified Is this a current diagnosis for this admission?: Yes (4) COPD with acute exacerbation Is this a current diagnosis for this admission?: Yes (5) Obesity hypoventilation syndrome Is this a current diagnosis for this admission?: Yes (6) Pneumonia Qualifiers: Pneumonia type: due to unspecified organism Lung location: unspecified part of lung Is this a current diagnosis for this admission?: Yes (8) Obesity hypoventilation syndrome Is this a current diagnosis for this admission?: Yes (9) Obstructive sleep apnea Is this a current diagnosis for this admission?: Yes (10) Atrial fibrillation Qualifiers: Atrial fibrillation type: chronic Qualified Code(s): I48.2 - Chronic atrial fibrillation Is this a current diagnosis for this admission?: Yes (12) Tobacco dependency Is this a current diagnosis for this admission?: Yes (15) DNR (do not resuscitate) Is this a current diagnosis for this admission?: Yes (16) Pulmonary hypertension Is this a current diagnosis for this admission?: Yes (17) Hypothyroid Qualifiers: Hypothyroidism type: acquired Qualified Code(s): E03.9 - Hypothyroidism, unspecified (18) Hypotension Qualifiers: Qualified Code(s): I95.89 - Other hypotension
[2016-12-04] MEDS: ATORVASTATIN CALCIUM 40 MG TABLET PO SCH (21:52)
[2016-12-04] MEDS: GUAIFENESIN 600 MG TABLET.SA PO SCH (21:52)
[2016-12-05] MEDS: IPRATROPIUM/ALBUTEROL 0.5-2.5 MG/3 ML AMPUL NEB SCH ×7 (00:06→23:54)
[2016-12-05] MEDS: HEPARIN SOD (PORCINE) 5,000 UNIT/ML 1 ML SYRINGE SUBCUT SCH ×3 (05:37→21:25)
[2016-12-05] MEDS: VANCOMYCIN HCL 750 MG in DEXTROSE 5%-WATER 250 ML IV SCH ×2 (05:37→17:32)
[2016-12-05] MEDS: LEVOTHYROXINE SODIUM 0.15 MG TABLET PO SCH (05:37)
[2016-12-05 06:32] LABS: BLOOD UREA NITROGEN 45 mg/dL (7-20); CHLORIDE 89 mmol/L (98-107); CREATININE RESULT 1.12 mg/dL (0.52-1.25); GLUCOSE 86 mg/dL (75-110); POTASSIUM 3.5 mmol/L (3.6-5.0); SODIUM 139.4 mmol/L (137-145)
[2016-12-05 06:38] LABS: ANION GAP 8 (5-19)
[2016-12-05 06:40] LABS: CARBON DIOXIDE 42 mmol/L (22-30)
[2016-12-05] MEDS: SPIRONOLACTONE 25 MG TABLET PO SCH (08:34)
[2016-12-05] MEDS: THIAMINE HCL 100 MG TABLET PO SCH (08:34)
[2016-12-05] MEDS: MIDODRINE HCL 5 MG TABLET PO SCH ×3 (08:34→17:33)
[2016-12-05] MEDS: BUMETANIDE 1 MG TABLET PO SCH (08:35)
[2016-12-05] MEDS: GABAPENTIN 300 MG CAPSULE PO SCH ×2 (08:35→21:25)
[2016-12-05] MEDS: GUAIFENESIN 600 MG TABLET.SA PO SCH ×2 (08:35→21:25)
[2016-12-05] MEDS: SILDENAFIL CITRATE 20 MG TABLET PO SCH ×3 (08:37→17:33)
[2016-12-05] MEDS: CEFTRIAXONE 1 GM/D5W RTU 1 GM/50 ML RTUPB IV SCH (08:38)
[2016-12-05] MEDS: DOCUSATE SODIUM 100 MG CAPSULE PO SCH ×2 (08:39→17:21)
[2016-12-05] MEDS: ATENOLOL 50 MG TABLET PO SCH (08:39)
--- NOTE | 2016-12-05 10:44 | PDOC PROGRESS REPORT ---
Subjective Progress Note for:: 12/05/16 Subjective:: The patient states that she feels better, but still appears to be moderately short of breath. She denies any PND or orthopnea he continues to be in atrial fibrillation, with a controlled ventricular response. She is on a positive pressure in his. She denies any chest pain or discomfort, no palpitations or dizziness, no syncope or near syncope she has no TIA or CVA symptoms. She has chronic lymphedema of the lower extremities along with mild edema on top. She does not want to be on chronic anticoagulation because of the GI bleed she had. Review of symptoms: Is negative for the rest of the symptoms. Medications: Have been reviewed Physical Exam Vital Signs: Temp Pulse Resp BP Pulse Ox 97.8 F 57 L 19 119/69 90 L 12/05/16 07:27 12/05/16 08:58 12/05/16 08:58 12/05/16 07:27 12/05/16 08:58 Intake & Output 12/04/16 12/05/16 12/06/16 06:59 06:59 06:59 Intake Total 1230 620 Output Total 350 200 Balance 880 420 Weight 118 kg 122.4 kg General appearance: PRESENT: morbidly obese - The patient is morbidly obese, in mild respiratory distress, and is on positive pressure ventilation mask Head exam: PRESENT: other - Head is atraumatic normocephalic Eye exam: PRESENT: other - Pupils are equal regular reactive to light accommodation extraocular movements are normal there is some mild conjunctival pallor. There is no scleral icterus Ear exam: PRESENT: other - Tympanic membranes are normal bilaterally, external auditory canal. Mouth exam: PRESENT: other - Mucous membranes of the mouth are moist tongue is moist. There are no ulcers in the mouth there is no bleeding from the gums Throat exam: PRESENT: other - There is no redness of the oropharynx. There is no exaggeration of the throat. Nose: There is no deviated nasal septum. There is no nasal polyps. Neck exam: PRESENT: other - Neck is supple. There is no JVD. Carotids are equal, without any bruits. There is no lymphadenopathy. There is no goiter. Respiratory exam: PRESENT: other - Patient seems to be in mild respiratory distress, but without any use of accesory muscles of respiration. There are a few scattered rhonchi and a few bilateral wheezing. There are fine crackles in both bases. Cardiovascular exam: PRESENT: other - S1, S2 heard. There is variable intensity of S1. There is no S3 or S4 gallops. Systolic murmur left sternal border and apex. There is no rub. Pulses: PRESENT: other - Extremities are deep and faint but there are no femoral bruits. Leg pulses are difficult to feel. GI/Abdominal exam: PRESENT: other - , There is no hepatosplenomegaly bowel sounds are normal. Abdomen is obese Rectal exam: PRESENT: deferred Extremities exam: PRESENT: other - There is chronic lymphedema with venous stasis changes and also mild edema in both lower extremities. There is no evidence of cellulitis. There is no calf tenderness. Musculoskeletal exam: PRESENT: other - Within normal limits. Musculoskeletal system seems to be Neurological exam: PRESENT: other - The patient is awake alert oriented 3 with no focal deficits. Psychiatric exam: PRESENT: other - The patient judgment and insight are intact. Her affect is normal Skin exam: PRESENT: other - With the patient's lower extremity showing chronic lymphedema and also mild edema. There is chronic venous stasis dermatitis Results Laboratory Results: 12/04/16 04:31 12/05/16 05:44 12/04/16 12/05/16 11:20 05:44 Carbonic Acid 1.70 H HCO3/H2CO3 Ratio 24:1 ABG pH 7.49 H ABG pCO2 56.5 H ABG pO2 58.3 L ABG HCO3 42.3 H ABG O2 Saturation 91.6 L ABG Base Excess 16.4 FiO2 55% Sodium 139.4 Potassium 3.5 L Chloride 89 L Carbon Dioxide 42 H* Anion Gap 8 BUN 45 H Creatinine 1.12 Est GFR ( Amer) 58 L Est GFR (Non-Af Amer) 48 L Glucose 86 Calcium 9.0 12/03/16 12/03/16 12/03/16 06:20 06:20 12:02 Creatine Kinase < 20 L < 20 L CK-MB (CK-2) 0.55 Troponin I 0.028 NT-Pro-B Natriuret Pep 12/03/16 12/03/16 12/03/16 12:02 18:20 18:20 Creatine Kinase < 20 L CK-MB (CK-2) 0.47 0.32 Troponin I 0.018 0.016 NT-Pro-B Natriuret Pep 12/04/16 04:31 Creatine Kinase CK-MB (CK-2) Troponin I NT-Pro-B Natriuret Pep [id number] H Impressions: Chest X-Ray 12/04/16 06:00 IMPRESSION: Persistent left lower lobe air bronchograms from collapse/ consolidation. Pneumonia could not be excluded. Small right pleural effusion. Suspect a small left pleural effusion. These findings are similar compared to 12/03/2016 and new compared to 10/22/2016. Assessment & Plan - Diagnosis (3) CHF (congestive heart failure) Qualifiers: Congestive heart failure type: unspecified congestive heart failure type Congestive heart failure chronicity: chronic Qualified Code(s): I50.9 - Heart failure, unspecified Is this a current diagnosis for this admission?: YesPlan: The patient has acute on chronic diastolic heart failure, and also secondary to volume overload due to chronic kidney disease, and also right heart failure which is acute on chronic. The plan is to continue spironolactone and Bumex. (4) COPD with acute exacerbation Is this a current diagnosis for this admission?: YesPlan: Continue positive pressure ventilation and oxygen and anti-COPD medications. Also continue antibiotics. (5) Obesity hypoventilation syndrome Is this a current diagnosis for this admission?: YesPlan: Continue positive pressure ventilation. (6) Pneumonia Qualifiers: Pneumonia type: due to unspecified organism Lung location: unspecified part of lung Is this a current diagnosis for this admission?: YesPlan: Continue current antibiotics including vancomycin, but in view of the patient's chronic kidney disease will have pharmacy manage the levels of vancomycin. (7) Anemia associated with acute blood loss Plan: We will continue to watch for any drop in hemoglobin and transfuse the patient if hemoglobin goes below 8. (8) Obesity hypoventilation syndrome Is this a current diagnosis for this admission?: Yes (9) Obstructive sleep apnea Is this a current diagnosis for this admission?: YesPlan: Continue positive pressure ventilation especially when the patient sleeps. (10) Atrial fibrillation Qualifiers: Atrial fibrillation type: chronic Qualified Code(s): I48.2 - Chronic atrial fibrillation Is this a current diagnosis for this admission?: YesPlan: Continue atenolol. The rate is controlled. The patient does not want to be on anticoagulation. (11) Thrombocytopenia Plan: There is no signs of bleeding with the thrombocytopenia which is chronic. Will observe the patient carefully for any bleeding. (12) Tobacco dependency Is this a current diagnosis for this admission?: YesPlan: The patient was given smoking cessation counseling. (15) DNR (do not resuscitate) Is this a current diagnosis for this admission?: YesPlan: The patient still wishes to be DNR. Her health surrogate healthcare decision maker is unchanged. (16) Pulmonary hypertension Is this a current diagnosis for this admission?: YesPlan: We will continue sildenafil. (17) Hypothyroid Qualifiers: Hypothyroidism type: acquired Qualified Code(s): E03.9 - Hypothyroidism, unspecified Plan: Continue Synthroid replacement. (18) Hypotension Qualifiers: Qualified Code(s): I95.89 - Other hypotension Plan: The patient blood pressure is stable on midodrine. Continue midodrine. - Time Smoking Education Provided: Over 3 minutes Medications reviewed and adjusted accordingly: Yes Within: Other - The patient was seen from 8: 05 AM to 8:35 AM. 30 minutes spent on this patient
--- NOTE | 2016-12-05 11:12 | PDOC PROGRESS REPORT ---
Subjective Progress Note for:: 12/04/16 Physical Exam Vital Signs: Temp Pulse Resp BP Pulse Ox 97.8 F 57 L 19 119/69 90 L 12/05/16 07:27 12/05/16 08:58 12/05/16 08:58 12/05/16 07:27 12/05/16 08:58 Intake & Output 12/04/16 12/05/16 12/06/16 06:59 06:59 06:59 Intake Total 1230 620 Output Total 350 200 Balance 880 420 Weight 118 kg 122.4 kg General appearance: PRESENT: no acute distress, cooperative, disheveled, obese, well-developed Head exam: PRESENT: atraumatic, normocephalic Eye exam: PRESENT: conjunctiva pale, EOMI Mouth exam: PRESENT: dry mucosa Neck exam: PRESENT: carotid bruit Respiratory exam: PRESENT: decreased breath sounds, prolonged expiratory phas, rhonchi, symmetrical, unlabored, wheezes Cardiovascular exam: PRESENT: RRR, +S1, +S2 Pulses: PRESENT: normal radial pulses GI/Abdominal exam: PRESENT: normal bowel sounds, soft. ABSENT: distended, guarding, mass, organolmegaly, rebound, tenderness Rectal exam: PRESENT: deferred Gentrourinary exam: PRESENT: indwelling catheter Neurological exam: PRESENT: awake Psychiatric exam: PRESENT: normal mood Skin exam: PRESENT: dry, warm Results Laboratory Results: 12/04/16 04:31 12/05/16 05:44 12/04/16 12/05/16 11:20 05:44 Carbonic Acid 1.70 H HCO3/H2CO3 Ratio 24:1 ABG pH 7.49 H ABG pCO2 56.5 H ABG pO2 58.3 L ABG HCO3 42.3 H ABG O2 Saturation 91.6 L ABG Base Excess 16.4 FiO2 55% Sodium 139.4 Potassium 3.5 L Chloride 89 L Carbon Dioxide 42 H* Anion Gap 8 BUN 45 H Creatinine 1.12 Est GFR ( Amer) 58 L Est GFR (Non-Af Amer) 48 L Glucose 86 Calcium 9.0 12/03/16 12/03/16 12/03/16 06:20 06:20 12:02 Creatine Kinase < 20 L < 20 L CK-MB (CK-2) 0.55 Troponin I 0.028 NT-Pro-B Natriuret Pep 12/03/16 12/03/16 12/03/16 12:02 18:20 18:20 Creatine Kinase < 20 L CK-MB (CK-2) 0.47 0.32 Troponin I 0.018 0.016 NT-Pro-B Natriuret Pep 12/04/16 04:31 Creatine Kinase CK-MB (CK-2) Troponin I NT-Pro-B Natriuret Pep [id number] H Impressions: Chest X-Ray 12/04/16 06:00 IMPRESSION: Persistent left lower lobe air bronchograms from collapse/ consolidation. Pneumonia could not be excluded. Small right pleural effusion. Suspect a small left pleural effusion. These findings are similar compared to 12/03/2016 and new compared to 10/22/2016. Assessment & Plan - Diagnosis (1) COPD with acute exacerbation Is this a current diagnosis for this admission?: YesPlan: Improving on AVAPS (2) Hypoxia Is this a current diagnosis for this admission?: YesPlan: Stable (3) Obesity hypoventilation syndrome Is this a current diagnosis for this admission?: Yes (4) Acute and chronic respiratory failure with hypercapnia Is this a current diagnosis for this admission?: Yes (5) Obstructive sleep apnea Is this a current diagnosis for this admission?: Yes (6) Tobacco dependency Is this a current diagnosis for this admission?: Yes
--- NOTE | 2016-12-05 11:50 | PDOC PROGRESS REPORT ---
Subjective Progress Note for:: 12/05/16 Subjective:: MARIANO HENRY is a 71 year old female a past medical history pneumonia, diastolic heart failure, severe pulmonary hypertension, atrial fibrillation, obstructive sleep apnea, morbid obesity, hypoventilation syndrome, venous stasis , deep vein thrombosis, stage III chronic kidney disease, renal insufficiency and recent GI bleed. She was transferred to [facility] and 24 hours ago from [facility] in [facility] on scheduled Xanax. [facility] staff were challenged by hypoxia and difficulty applying BiPAP and subsequently transferred to the emergency room for evaluation where she was found to be obtunded. Her workup reveals a right upper lobe infiltrate , and hypercapnic respiratory failure. She started on empiric BiPAP and referred to the hospitalist for admission. Her CODE STATUS is DNR. She is unable to provide history. She is breathing more easily this morning. Is off of BiPAP for her breakfast and seems to be tolerating a nasal cannula well. Physical Exam Vital Signs: Temp Pulse Resp BP Pulse Ox 97.8 F 57 L 19 119/69 90 L 12/05/16 07:27 12/05/16 08:58 12/05/16 08:58 12/05/16 07:27 12/05/16 08:58 Intake & Output 12/04/16 12/05/16 12/06/16 06:59 06:59 06:59 Intake Total 1230 620 Output Total 350 200 Balance 880 420 Weight 118 kg 122.4 kg Additional comments: General appearance: PRESENT: morbidly obese, moderate distress, off BiPAP while she eats breakfast Head exam: PRESENT: atraumatic, normocephalic Eye exam: PRESENT: conjunctiva pink, EOMI, PERRLA. ABSENT: scleral icterus Ear exam: PRESENT: normal external ear exam Mouth exam: PRESENT: dry mucosa, tongue midline Neck exam: ABSENT: carotid bruit, JVD, lymphadenopathy, thyromegaly Respiratory exam: PRESENT: crackles, prolonged expiratory phase, air movement improving, slight wheezes Cardiovascular exam: PRESENT: irregular rhythm, RRR. ABSENT: diastolic murmur, rubs, systolic murmur Pulses: PRESENT: normal dorsalis pedis pul GI/Abdominal exam: PRESENT: normal bowel sounds, soft. ABSENT: distended, guarding, mass, organolmegaly, rebound, tenderness Rectal exam: PRESENT: deferred Extremities exam: PRESENT: full ROM, 2+ edema LE's slowly improving, other - Chronic changes of venous stasis. ABSENT: calf tenderness, clubbing, Neurological exam: PRESENT: altered Skin exam: PRESENT: other - Dehydrated and chronic changes of venous stasis Results Laboratory Results: 12/04/16 04:31 12/05/16 05:44 12/04/16 12/05/16 11:20 05:44 Carbonic Acid 1.70 H HCO3/H2CO3 Ratio 24:1 ABG pH 7.49 H ABG pCO2 56.5 H ABG pO2 58.3 L ABG HCO3 42.3 H ABG O2 Saturation 91.6 L ABG Base Excess 16.4 FiO2 55% Sodium 139.4 Potassium 3.5 L Chloride 89 L Carbon Dioxide 42 H* Anion Gap 8 BUN 45 H Creatinine 1.12 Est GFR ( Amer) 58 L Est GFR (Non-Af Amer) 48 L Glucose 86 Calcium 9.0 12/03/16 12/03/16 12/03/16 06:20 06:20 12:02 Creatine Kinase < 20 L < 20 L CK-MB (CK-2) 0.55 Troponin I 0.028 NT-Pro-B Natriuret Pep 12/03/16 12/03/16 12/03/16 12:02 18:20 18:20 Creatine Kinase < 20 L CK-MB (CK-2) 0.47 0.32 Troponin I 0.018 0.016 NT-Pro-B Natriuret Pep 12/04/16 04:31 Creatine Kinase CK-MB (CK-2) Troponin I NT-Pro-B Natriuret Pep [id number] H Impressions: Chest X-Ray 12/04/16 06:00 IMPRESSION: Persistent left lower lobe air bronchograms from collapse/ consolidation. Pneumonia could not be excluded. Small right pleural effusion. Suspect a small left pleural effusion. These findings are similar compared to 12/03/2016 and new compared to 10/22/2016. Assessment & Plan - Diagnosis (1) CHF (congestive heart failure) Qualifiers: Congestive heart failure type: unspecified congestive heart failure type Congestive heart failure chronicity: chronic Qualified Code(s): I50.9 - Heart failure, unspecified Is this a current diagnosis for this admission?: YesPlan: Acute on chronic CHF. Currently decompensated. Will continue spironolactone and Bumex and monitor. Cardiology following. The patient is perhaps feeling a bit better. We will continue current approach. (2) Obesity hypoventilation syndrome Is this a current diagnosis for this admission?: YesPlan: Remains on BiPAP, but tolerates off for meals. (3) Obstructive sleep apnea Is this a current diagnosis for this admission?: YesPlan: Remains on BiPAP as above. (4) COPD with acute exacerbation Is this a current diagnosis for this admission?: Yes (5) Pneumonia Qualifiers: Pneumonia type: due to unspecified organism Lung location: unspecified part of lung Is this a current diagnosis for this admission?: YesPlan: This was probably a treated at [facility] there recently, with discharge on 2015. Current chest x-ray still shows left lower lobe infiltrate/atelectasis. She is on empiric vancomycin and Rocephin. Will add guaifenesin. (6) Hypercarbia Is this a current diagnosis for this admission?: YesPlan: On BiPAP. Follow-up ABG 12/04 noted, improved but c/w chronic, severe respiratory disease. (7) Hypoxia Is this a current diagnosis for this admission?: YesPlan: O2 supplementation as needed.
[2016-12-05] MEDS: ATORVASTATIN CALCIUM 40 MG TABLET PO SCH (21:25)
[2016-12-06] MEDS: IPRATROPIUM/ALBUTEROL 0.5-2.5 MG/3 ML AMPUL NEB SCH ×6 (04:18→23:57)
[2016-12-06] MEDS: HEPARIN SOD (PORCINE) 5,000 UNIT/ML 1 ML SYRINGE SUBCUT SCH ×3 (05:16→21:10)
[2016-12-06] MEDS: VANCOMYCIN HCL 750 MG in DEXTROSE 5%-WATER 250 ML IV SCH ×2 (05:16→18:09)
[2016-12-06] MEDS: LEVOTHYROXINE SODIUM 0.15 MG TABLET PO SCH (05:16)
[2016-12-06 05:21] LABS: BLOOD UREA NITROGEN 42 mg/dL (7-20); CALCIUM 8.7 mg/dL (8.4-10.2); CHLORIDE 89 mmol/L (98-107); CREATININE RESULT 0.94 mg/dL (0.52-1.25); GLUCOSE 81 mg/dL (75-110); POTASSIUM 3.5 mmol/L (3.6-5.0)
[2016-12-06 05:50] LABS: ANION GAP 7 (5-19); CARBON DIOXIDE 41 mmol/L (22-30)
[2016-12-06] MEDS: GUAIFENESIN 600 MG TABLET.SA PO SCH ×2 (07:52→21:10)
[2016-12-06] MEDS: THIAMINE HCL 100 MG TABLET PO SCH (07:52)
[2016-12-06] MEDS: MIDODRINE HCL 5 MG TABLET PO SCH ×3 (07:52→18:09)
[2016-12-06] MEDS: GABAPENTIN 300 MG CAPSULE PO SCH ×2 (07:52→21:11)
[2016-12-06] MEDS: SPIRONOLACTONE 25 MG TABLET PO SCH (07:52)
[2016-12-06] MEDS: BUMETANIDE 1 MG TABLET PO SCH (07:53)
[2016-12-06] MEDS: SILDENAFIL CITRATE 20 MG TABLET PO SCH ×3 (07:54→18:09)
[2016-12-06] MEDS: CEFTRIAXONE 1 GM/D5W RTU 1 GM/50 ML RTUPB IV SCH (07:54)
[2016-12-06] MEDS: ATENOLOL 50 MG TABLET PO SCH (07:55)
[2016-12-06] MEDS: DOCUSATE SODIUM 100 MG CAPSULE PO SCH ×2 (07:59→17:47)
--- NOTE | 2016-12-06 10:26 | PDOC PROGRESS REPORT ---
Subjective Progress Note for:: 12/06/16 Subjective:: MARIANO HENRY is a 71 year old female a past medical history pneumonia, diastolic heart failure, severe pulmonary hypertension, atrial fibrillation, obstructive sleep apnea, morbid obesity, hypoventilation syndrome, venous stasis , deep vein thrombosis, stage III chronic kidney disease, renal insufficiency and recent GI bleed. She was transferred to [facility] and 24 hours ago from [facility] in [facility] on scheduled Xanax. shelter staff were challenged by hypoxia and difficulty applying BiPAP and subsequently transferred to the emergency room for evaluation where she was found to be obtunded. Her workup reveals a right upper lobe infiltrate , and hypercapnic respiratory failure. She started on empiric BiPAP and referred to the hospitalist for admission. Her CODE STATUS is DNR. She is unable to provide history. 12/05 - She is breathing more easily this morning. Is off of BiPAP for her breakfast and seems to be tolerating a nasal cannula well. 12/06 -She is felt to be in CHF. She is diuresing very slowly. She is improving very slowly. He is still requiring BiPAP most of the day. She wonders if she has pneumonia. He has been afebrile and has had a normal white blood count. Physical Exam Vital Signs: Temp Pulse Resp BP Pulse Ox 98.4 F 63 20 112/53 L 89 L 12/06/16 07:17 12/06/16 08:00 12/06/16 08:00 12/06/16 07:17 12/06/16 08:00 Intake & Output 12/05/16 12/06/16 12/07/16 06:59 06:59 06:59 Intake Total 620 968 Output Total 200 1700 Balance 420 -732 Weight 122.4 kg 122 kg Additional comments: General appearance: PRESENT: morbidly obese, moderate distress, off BiPAP while she eats, but uses it most of the day Head exam: PRESENT: atraumatic, normocephalic Eye exam: PRESENT: conjunctiva pink, EOMI, PERRLA. ABSENT: scleral icterus Ear exam: PRESENT: normal external ear exam Mouth exam: PRESENT: dry mucosa, tongue midline Neck exam: ABSENT: carotid bruit, JVD, lymphadenopathy, thyromegaly Respiratory exam: PRESENT: crackles, prolonged expiratory phase, poor air movement is slowly improving, slight wheezes Cardiovascular exam: PRESENT: irregular rhythm, RRR. ABSENT: diastolic murmur, rubs, systolic murmur Pulses: PRESENT: normal dorsalis pedis pul GI/Abdominal exam: PRESENT: normal bowel sounds, soft. ABSENT: distended, guarding, mass, organolmegaly, rebound, tenderness Rectal exam: PRESENT: deferred Extremities exam: PRESENT: full ROM, 2+ edema LE's slowly improving, other - Chronic changes of venous stasis. ABSENT: calf tenderness, clubbing, Neurological exam: PRESENT: altered Skin exam: PRESENT: other - chronic changes of venous stasis Results Laboratory Results: 12/04/16 04:31 12/06/16 04:46 12/06/16 04:46 Sodium 137.0 Potassium 3.5 L Chloride 89 L Carbon Dioxide 41 H* Anion Gap 7 BUN 42 H Creatinine 0.94 Est GFR ( Amer) > 60 Est GFR (Non-Af Amer) 59 L Glucose 81 Calcium 8.7 12/03/16 12/03/16 12/03/16 06:20 06:20 12:02 Creatine Kinase < 20 L < 20 L CK-MB (CK-2) 0.55 Troponin I 0.028 NT-Pro-B Natriuret Pep 12/03/16 12/03/16 12/03/16 12:02 18:20 18:20 Creatine Kinase < 20 L CK-MB (CK-2) 0.47 0.32 Troponin I 0.018 0.016 NT-Pro-B Natriuret Pep 12/04/16 04:31 Creatine Kinase CK-MB (CK-2) Troponin I NT-Pro-B Natriuret Pep 10054 H Impressions: Chest X-Ray 12/04/16 06:00 IMPRESSION: Persistent left lower lobe air bronchograms from collapse/ consolidation. Pneumonia could not be excluded. Small right pleural effusion. Suspect a small left pleural effusion. These findings are similar compared to 12/03/2016 and new compared to 10/22/2016. Assessment & Plan - Diagnosis (1) CHF (congestive heart failure) Qualifiers: Congestive heart failure type: unspecified congestive heart failure type Congestive heart failure chronicity: chronic Qualified Code(s): I50.9 - Heart failure, unspecified Is this a current diagnosis for this admission?: YesPlan: Acute on chronic CHF. Currently decompensated. Will continue spironolactone and Bumex and monitor. Cardiology following. The patient is perhaps feeling a bit better but very slowly. We will continue current approach. Recheck labs and CXR. (2) Obesity hypoventilation syndrome Is this a current diagnosis for this admission?: YesPlan: Remains on BiPAP, but tolerates off for meals. (3) Obstructive sleep apnea Is this a current diagnosis for this admission?: YesPlan: Remains on BiPAP as above. (4) COPD with acute exacerbation Is this a current diagnosis for this admission?: Yes (5) Pneumonia Qualifiers: Pneumonia type: due to unspecified organism Lung location: unspecified part of lung Is this a current diagnosis for this admission?: YesPlan: This was probably a treated at [facility] there recently, with discharge on 2015. Current chest x-ray still shows left lower lobe infiltrate/atelectasis. She is on empiric vancomycin and Rocephin just in case. Will add guaifenesin. (6) Hypercarbia Is this a current diagnosis for this admission?: YesPlan: On BiPAP. Follow-up ABG 12/04 noted, improved but c/w chronic, severe respiratory disease. (7) Hypoxia Is this a current diagnosis for this admission?: YesPlan: O2 supplementation as needed.
--- NOTE | 2016-12-06 11:24 | RADIOLOGY REPORT (SQ) ---
EXAM DESCRIPTION: CHEST SINGLE VIEW COMPLETED DATE/TIME: 12/06/2016 11:01 am REASON FOR STUDY: resp failure, f/u chf and pna COMPARISON: 12/04/2016. EXAM PARAMETERS: NUMBER OF VIEWS: One view. TECHNIQUE: Single frontal radiographic view of the chest acquired. RADIATION DOSE: NA LIMITATIONS: None. FINDINGS: LUNGS AND PLEURA: Continued airspace disease in the lower lobes, left greater than right, with pleural effusions. MEDIASTINUM AND HILAR STRUCTURES: No masses. Contour normal. HEART AND VASCULAR STRUCTURES: Cardiomegaly. Vascular congestion. BONES: No acute findings. HARDWARE: None in the chest. OTHER: No other significant finding. IMPRESSION: NO CHANGE IN APPEARANCE OF THE CHEST. TECHNICAL DOCUMENTATION: JOB ID: [id number]
--- NOTE | 2016-12-06 14:59 | PROGRESS NOTE E ---
Progress Note NAME: MARIANO HENRY : 1945 AGE: 71Y DATE: 12/06/2016 ROOM: 325 SUBJECTIVE: The patient was seen from 9:35 a.m. to 10:05 a.m., a total of 30 minutes spent on this patient. The patient states that her shortness of breath is slightly worse and she is coughing up and bringing yellowish-green sputum. There is no chest pain or discomfort. She does have some wheezing and rhonchi and she is wearing the BiPAP. There is atrial fibrillation, rate is controlled. There are no TIA or CVA symptoms. The patient denies any PND, orthopnea and leg edema is stable. REVIEW OF SYSTEMS: Negative for the rest of the systems. MEDICATIONS: Medications have been reviewed. OBJECTIVE: GENERAL: On examination the patient is morbidly obese, in some mild respiratory distress. She is afebrile with a temperature of 98.4 degrees Fahrenheit. Pulse is 62 beats per minute. Blood pressure is 112/53, respirations at 14 per minute. 02 saturations are 93% on BiPAP with an oxygen saturation of 59%. HEAD: Atraumatic/normocephalic. EYES: Pupils are equal, round, regular, reactive to light and accommodation. Extraocular movements are normal. There is mild conjunctival pallor. There is no scleral icterus. ENT: Negative. NECK: The neck is supple. There is no JVD. Carotids are equal. There is no bruit. There is no goiter. There is no lymphadenopathy. Trachea is central. LUNGS: The lungs show scattered rhonchi and wheezing bilaterally and there is diminished air entry and prolonged expiration. There is no chest wall tenderness. HEART: S1, S2 is heard. S1 is of variable intensity. There is no S3 gallop. There is no S4 gallop. There is a systolic murmur in the left sternal border and the apex. There is no rub. ABDOMEN: Soft, obese. Bowel sounds are well heard. There is no hepatosplenomegaly. There is no definite evidence of ascites. EXTREMITIES: Femorals are diminished. There are no femoral bruits. Leg pulses are difficult to palpate due to chronic lymphedema. The patient has chronic lymphedema with venous stasis dermatitis changes and also mild edema in both lower extremities which is slightly better. There is no evidence of cellulitis. There is no cyanosis or clubbing. CENTRAL NERVOUS SYSTEM: The patient is conscious, awake, alert and oriented x3 with no focal deficits. PSYCHIATRIC: The patient's judgment and insight are intact. Her affect is normal. SKIN: With the patient's lower extremity showing chronic lymphedema and also mild edema. There is also chronic venous stasis dermatitis. DIAGNOSTIC DATA: The patient's sputum has been sent for culture and sensitivity. There is continued air space disease of the lower lobes. *------* with pleural effusions without any change. The patient sodium is 137, potassium is lower at 2.5, chloride is 89, CO2 is 41. The patient's BUN is 42, creatinine is 0.94, GFR is mildly reduced to 59 mL which is better than what it was almost like CKD stage II. The patient's glucose is 81 and the patient's calcium is 8.7. IMPRESSION: 1. CONGESTIVE HEART FAILURE. The patient's acute on chronic diastolic heart failure and also secondary to volume overload due to patient's chronic kidney disease, improving. 2. COPD WITH ACUTE EXACERBATION. Continue positive pressure ventilation with oxygen and anti-COPD medication. Also continue antibiotics. 3. BILATERAL BASILAR INFILTRATES WITH PLEURAL EFFUSIONS MOST LIKELY SECONDARY TO PNEUMONIA. Continue antibiotics. 4. OBESITY, HYPERVENTILATION SYNDROME. Continue positive pressure ventilation. 5. ANEMIA ASSOCIATED WITH ACUTE BLOOD LOSS IN THE RECENT PAST. Continue to watch the hemoglobin, stable at night. 6. OBSTRUCTIVE SLEEP APNEA. 7. ATRIAL FIBRILLATION, CHRONIC. The patient does not want to be on any anticoagulation. Continue atenolol. The rate is well controlled. 8. THROMBOCYTOPENIA. 9. *------*. 10. PULMONARY HYPERTENSION. Continue sildenafil. 11. HYPOTHYROIDISM. Continue Synthroid replacement. 12. HISTORY OF HYPOTENSION. The patient's blood pressure is stabilized. Continue midodrine. Note: Thirty minutes spent on this patient with more than 50% of the time spent in direct patient care and medications have been reviewed and discussed the case with the patient and clinician and also with the other caregivers on the case. Note that the patient is a DNR. Her surrogate healthcare decision maker has not changed. Will follow with you. DICTATING PHYSICIAN: THOMAS BLANCA M.D. [id number] PHY#: [id number] ID: [id number] JOB#: [id number] ACCT: [id number] cc: >
[2016-12-06] MEDS: ATORVASTATIN CALCIUM 40 MG TABLET PO SCH (21:11)
[2016-12-07] MEDS: IPRATROPIUM/ALBUTEROL 0.5-2.5 MG/3 ML AMPUL NEB SCH ×6 (04:14→23:57)
[2016-12-07] MEDS: HEPARIN SOD (PORCINE) 5,000 UNIT/ML 1 ML SYRINGE SUBCUT SCH ×3 (05:29→21:03)
[2016-12-07] MEDS: LEVOTHYROXINE SODIUM 0.15 MG TABLET PO SCH (05:29)
[2016-12-07] MEDS: VANCOMYCIN HCL 750 MG in DEXTROSE 5%-WATER 250 ML IV SCH ×2 (05:30→18:53)
[2016-12-07 05:49] LABS: ABSOLUTE BASOPHILS # (AUTO) 0.1 10^3/uL (0.0-0.2); ABSOLUTE EOSINOPHILS # (AUTO) 0.3 10^3/uL (0.0-0.6); ABSOLUTE LYMPHOCYTES (AUTO) 1.1 10^3/uL (0.5-4.7); ABSOLUTE MONOCYTES (AUTO) 0.4 10^3/uL (0.1-1.4); ABSOLUTE NEUT (AUTO) 4.7 10^3/uL (1.7-8.2); EOSINOPHILS % (AUTO) 4.6 % (0-6); HEMOGLOBIN 9.3 g/dL (12.0-15.5); HGB HCT DIFFERENCE -1.1; LYMPHOCYTES % (AUTO) 16.6 % (13-45); MEAN CORPUSCULAR HEMOGLOBIN 30.5 pg (27.0-33.4); MEAN CORPUSCULAR HGB CONC 32.2 g/dL (32.0-36.0); MEAN CORPUSCULAR VOLUME 95 fl (80-97); MONOCYTES % (AUTO) 5.6 % (3-13); RED BLOOD COUNT 3.06 10^6/uL (3.72-5.28); RED CELL DISTRIBUTION WIDTH 19.9 % (11.5-14.0); SEGMENTED NEUTROPHILS % (AUTO) 72.2 % (42-78); WHITE BLOOD COUNT 6.5 10^3/uL (4.0-10.5)
[2016-12-07 06:02] LABS: BLOOD UREA NITROGEN 36 mg/dL (7-20); CALCIUM 8.7 mg/dL (8.4-10.2); CHLORIDE 90 mmol/L (98-107); CREATININE RESULT 0.95 mg/dL (0.52-1.25); GLUCOSE 81 mg/dL (75-110); POTASSIUM 3.8 mmol/L (3.6-5.0); SODIUM 137.5 mmol/L (137-145)
[2016-12-07 06:06] LABS: ANION GAP 7 (5-19)
[2016-12-07 06:17] LABS: CARBON DIOXIDE 41 mmol/L (22-30)
[2016-12-07] MEDS: BUMETANIDE 1 MG TABLET PO SCH (09:37)
[2016-12-07] MEDS: MIDODRINE HCL 5 MG TABLET PO SCH ×3 (09:37→18:52)
[2016-12-07] MEDS: CEFTRIAXONE 1 GM/D5W RTU 1 GM/50 ML RTUPB IV SCH (09:38)
[2016-12-07] MEDS: SILDENAFIL CITRATE 20 MG TABLET PO SCH ×3 (09:38→18:52)
[2016-12-07] MEDS: THIAMINE HCL 100 MG TABLET PO SCH (09:38)
[2016-12-07] MEDS: GABAPENTIN 300 MG CAPSULE PO SCH ×2 (09:38→21:03)
[2016-12-07] MEDS: GUAIFENESIN 600 MG TABLET.SA PO SCH ×2 (09:38→21:03)
[2016-12-07] MEDS: ATENOLOL 50 MG TABLET PO SCH (09:38)
[2016-12-07] MEDS: DOCUSATE SODIUM 100 MG CAPSULE PO SCH ×2 (09:39→18:19)
[2016-12-07] MEDS: SPIRONOLACTONE 25 MG TABLET PO SCH (09:39)
--- NOTE | 2016-12-07 11:07 | PDOC PROGRESS REPORT ---
Subjective Progress Note for:: 12/07/16 Subjective:: MARIANO HENRY is a 71 year old female a past medical history pneumonia, diastolic heart failure, severe pulmonary hypertension, atrial fibrillation, obstructive sleep apnea, morbid obesity, hypoventilation syndrome, venous stasis , deep vein thrombosis, stage III chronic kidney disease, renal insufficiency and recent GI bleed. She was transferred to [facility] and 24 hours ago from [facility] in [facility] on scheduled Xanax. skilled nursing staff were challenged by hypoxia and difficulty applying BiPAP and subsequently transferred to the emergency room for evaluation where she was found to be obtunded. Her workup reveals a right upper lobe infiltrate , and hypercapnic respiratory failure. She started on empiric BiPAP and referred to the hospitalist for admission. Her CODE STATUS is DNR. She is unable to provide history. 12/05 - She is breathing more easily this morning. Is off of BiPAP for her breakfast and seems to be tolerating a nasal cannula well. 12/06 -She is felt to be in CHF. She is diuresing very slowly. She is improving very slowly. He is still requiring BiPAP most of the day. She wonders if she has pneumonia. He has been afebrile and has had a normal white blood count. 12/07 -she is being treated for CHF. She is also obese with hypoventilation and hypercarbia. She is being treated empirically with antibiotics for pneumonia even though she is afebrile and her white blood count is normal. The chest x- ray does show some airspace disease in the lower lobes. She has diuresed very slowly. She continues to show easy O2 desaturation with minimal exertion. She has required BiPAP on and off. Physical Exam Vital Signs: Temp Pulse Resp BP Pulse Ox 98.4 F 51 L 20 123/57 L 95 12/07/16 07:30 12/07/16 07:50 12/07/16 07:50 12/07/16 07:30 12/07/16 07:50 Intake & Output 12/06/16 12/07/16 12/08/16 06:59 06:59 06:59 Intake Total 968 1328 Output Total 1700 1800 Balance -732 -472 Weight 122 kg 128.9 kg Additional comments: General appearance: PRESENT: morbidly obese, moderate distress, off BiPAP while she eats, but uses it most of the day Head exam: PRESENT: atraumatic, normocephalic Eye exam: PRESENT: conjunctiva pink, EOMI, PERRLA. ABSENT: scleral icterus Ear exam: PRESENT: normal external ear exam Mouth exam: PRESENT: dry mucosa, tongue midline Neck exam: ABSENT: carotid bruit, JVD, lymphadenopathy, thyromegaly Respiratory exam: PRESENT: crackles, prolonged expiratory phase, poor air movement is slowly improving, slight wheezes Cardiovascular exam: PRESENT: irregular rhythm, RRR. ABSENT: diastolic murmur, rubs, systolic murmur Pulses: PRESENT: normal dorsalis pedis pul GI/Abdominal exam: PRESENT: normal bowel sounds, soft. ABSENT: distended, guarding, mass, organolmegaly, rebound, tenderness Rectal exam: PRESENT: deferred Extremities exam: PRESENT: full ROM, 1+ edema LE's slowly improving, other - Chronic changes of venous stasis. ABSENT: calf tenderness, clubbing, Neurological exam: awake, alert Skin exam: PRESENT: other - chronic changes of venous stasis Results Laboratory Results: 12/07/16 05:06 12/07/16 05:06 12/07/16 12/07/16 05:06 05:06 WBC 6.5 RBC 3.06 L Hgb 9.3 L Hct 29.0 L MCV 95 MCH 30.5 MCHC 32.2 RDW 19.9 H Plt Count 325 Seg Neutrophils % 72.2 Lymphocytes % 16.6 Monocytes % 5.6 Eosinophils % 4.6 Basophils % 1.0 Absolute Neutrophils 4.7 Absolute Lymphocytes 1.1 Absolute Monocytes 0.4 Absolute Eosinophils 0.3 Absolute Basophils 0.1 Sodium 137.5 Potassium 3.8 Chloride 90 L Carbon Dioxide 41 H* Anion Gap 7 BUN 36 H Creatinine 0.95 Est GFR ( Amer) > 60 Est GFR (Non-Af Amer) 58 L Glucose 81 Calcium 8.7 12/03/16 12/03/16 12/03/16 06:20 06:20 12:02 Creatine Kinase < 20 L < 20 L CK-MB (CK-2) 0.55 Troponin I 0.028 NT-Pro-B Natriuret Pep 12/03/16 12/03/16 12/03/16 12:02 18:20 18:20 Creatine Kinase < 20 L CK-MB (CK-2) 0.47 0.32 Troponin I 0.018 0.016 NT-Pro-B Natriuret Pep 12/04/16 04:31 Creatine Kinase CK-MB (CK-2) Troponin I NT-Pro-B Natriuret Pep 73355 H Impressions: Chest X-Ray 12/06/16 00:00 IMPRESSION: NO CHANGE IN APPEARANCE OF THE CHEST. Assessment & Plan - Diagnosis (1) CHF (congestive heart failure) Qualifiers: Congestive heart failure type: unspecified congestive heart failure type Congestive heart failure chronicity: chronic Qualified Code(s): I50.9 - Heart failure, unspecified Is this a current diagnosis for this admission?: YesPlan: Acute on chronic CHF. Currently decompensated but slowly improving. Will continue spironolactone and Bumex and monitor. Cardiology following. The patient is perhaps feeling a bit better but very slowly. We will continue current approach. Monitoring labs and CXR. (2) Obesity hypoventilation syndrome Is this a current diagnosis for this admission?: YesPlan: Remains on BiPAP, but tolerates off for meals. (3) Obstructive sleep apnea Is this a current diagnosis for this admission?: YesPlan: Remains on BiPAP as above. (4) COPD with acute exacerbation Is this a current diagnosis for this admission?: Yes (5) Pneumonia Qualifiers: Pneumonia type: due to unspecified organism Lung location: unspecified part of lung Is this a current diagnosis for this admission?: YesPlan: This was probably treated at [facility] recently, with discharge on 11/13/2015. Current chest x-ray still shows left lower lobe infiltrate/atelectasis. She is on empiric vancomycin and Rocephin just in case this is an ongoing issue, but she has been afebrile and with normal WBC. (6) Hypercarbia Is this a current diagnosis for this admission?: YesPlan: On BiPAP. Follow-up ABG 12/04 noted, improved but c/w chronic, severe respiratory disease. (7) Hypoxia Is this a current diagnosis for this admission?: YesPlan: O2 supplementation as needed.
--- NOTE | 2016-12-07 14:44 | PROGRESS NOTE E ---
Progress Note NAME: MARIANO HENRY : 1945 AGE: 71Y DATE: 12/07/2016 ROOM: 325 SUBJECTIVE: The patient was seen from 12:30 p.m. to 1 p.m. The patient has now come off of BiPAP and states that she has just mild shortness of breath. She is on nasal cannula at 5.5 L with an O2 sat of 93%. She continues to be in atrial fibrillation with a controlled ventricular response. She has no chest pain. She denies orthopnea or PND. Her leg edema is much improved. There is no rapid ventricular response with atrial fibrillation. She still has some shortness of breath but denies any cough or sputum production. OBJECTIVE: GENERAL: On examination the patient is morbidly obese. At present does not seem to be in any major respiratory distress. VITAL SIGNS: She is afebrile with a temperature of 98.7 degrees Fahrenheit, pulse is 65 beats per minute, blood pressure is 112/40, respirations are 20 per minute, 02 saturations are 93% on 5.5 L nasal cannula. HEAD: Atraumatic/normocephalic. EYES: Pupils are equal, round, regular, reactive to light and accommodation. Extraocular movements are normal. There is mild conjunctival pallor. There is no scleral icterus. ENT: Negative. NECK: The neck is supple. There is no JVD. Carotids are equal. There is no bruit. There is no goiter. There is no lymphadenopathy. Trachea is central. LUNGS: The lungs show scattered rhonchi but no wheezing bilaterally. There is diminished air entry and prolonged expiration on auscultation. On percussion there is hyperresonance. There is no chest wall tenderness. HEART: S1, S2 is heard. S1 is of variable intensity. There is no S3 gallop. There is no S4 gallop. There is a systolic murmur in the left sternal border and the apex. There is no rub. ABDOMEN: Soft, nontender. There is no hepatosplenomegaly. Bowel sounds are well heard. Abdomen is obese. There are no tender areas or masses. EXTREMITIES: Femorals are diminished. There are no femoral bruits. Leg pulses are difficult to palpate due to chronic lymphedema. The patient has chronic lymphedema with venous stasis dermatitis changes. Mild edema over left *------* has now resolved. There is no evidence of cellulitis. There is no cyanosis or clubbing. CENTRAL NERVOUS SYSTEM: The patient is conscious, awake, alert and oriented x3 with no focal deficits. PSYCHIATRIC: The patient's judgment and insight are intact. Her affect is normal. SKIN: The patient's lower extremity showing chronic lymphedema and also chronic venous stasis dermatitis. The patient's 24-hour intake is 1328 mL. Output is 1800 mL. LABORATORY: The patient's chest x-ray yesterday showed still air space density in the lower lobes, left greater than right with pleural effusions. The patient's white count is 6500, hemoglobin is 9.3, hematocrit is 29, platelet count is 325,000. The patient's sodium is 137.5, potassium is 3.8, chloride is 92, CO2 is 41, BUN is 36, creatinine is 0.95, GFR is mildly reduced at 58 mL, her glucose is 81, calcium is 8.7. IMPRESSION: 1. CONGESTIVE HEART FAILURE. The patient's [id number] diastolic heart failure and also secondary to volume overload due to patient's chronic kidney disease, improving. 2. COPD WITH ACUTE EXACERBATION. Continue positive pressure ventilation with oxygen as needed and nasal cannula when she can tolerate it. Continue anti-COPD medication. Also continue antibiotics. 3. BILATERAL BASILAR INFILTRATES WITH PLEURAL EFFUSIONS MOST LIKELY SECONDARY TO PNEUMONIA. Continue antibiotics. 4. OBESITY HYPERVENTILATION SYNDROME. Continue positive pressure ventilation when the patient is asleep. 5. ANEMIA ASSOCIATED WITH ACUTE BLOOD LOSS IN THE RECENT PAST. Continue to watch the hemoglobin, stable at present. 6. OBSTRUCTIVE SLEEP APNEA. Continue CPAP when the patient is sleeping at night. 7. CHRONIC ATRIAL FIBRILLATION WITH CONTROLLED VENTRICULAR RESPONSE. Continue atenolol at current doses. The patient does not want to be on any anticoagulation due to the recent bleed. 8. THROMBOCYTOPENIA. No evidence of bleeding. 9. PULMONARY HYPERTENSION. Continue sildenafil. 10. TOBACCO ABUSE SYNDROME/DISORDER. The patient has been given tobacco cessation counseling. 11. HYPOTHYROIDISM. Continue Synthroid replacement. 12. HISTORY OF HYPOTENSION. The patient's blood pressure is stabilized. Continue midodrine. Note, 30 minutes spent on this patient with more than 50% of the time spent in direct patient care and medications have been reviewed and the plan was discussed with other caregiving providers on the case. This involved moderate complexity decision making in view of the multiple comorbid conditions of the patient and the patient is still not getting much improvement from her bibasilar pneumonia. Will follow with you. DICTATING PHYSICIAN: THOMAS BLANCA M.D. [id number] PHY#: [id number] ID: [id number] JOB#: [id number] ACCT: [id number] cc: >
[2016-12-07] MEDS ORDERED: MAG HYDROX/AL HYDROX/SIMETH SUSP 30 ML UDCUP PO PRN (16:14)
[2016-12-07] MEDS ORDERED: MAGNESIUM HYDROXIDE SUSP 30 ML UDCUP PO PRN (16:14)
[2016-12-07] MEDS: ATORVASTATIN CALCIUM 40 MG TABLET PO SCH (21:03)
[2016-12-08] MEDS: IPRATROPIUM/ALBUTEROL 0.5-2.5 MG/3 ML AMPUL NEB SCH ×6 (03:56→23:48)
[2016-12-08] MEDS: HEPARIN SOD (PORCINE) 5,000 UNIT/ML 1 ML SYRINGE SUBCUT SCH ×3 (05:08→22:04)
[2016-12-08] MEDS: VANCOMYCIN HCL 750 MG in DEXTROSE 5%-WATER 250 ML IV SCH ×2 (05:08→17:12)
[2016-12-08] MEDS: LEVOTHYROXINE SODIUM 0.15 MG TABLET PO SCH (05:08)
[2016-12-08 06:15] LABS: ABSOLUTE BASOPHILS # (AUTO) 0.1 10^3/uL (0.0-0.2); ABSOLUTE EOSINOPHILS # (AUTO) 0.3 10^3/uL (0.0-0.6); ABSOLUTE LYMPHOCYTES (AUTO) 0.9 10^3/uL (0.5-4.7); ABSOLUTE MONOCYTES (AUTO) 0.3 10^3/uL (0.1-1.4); ABSOLUTE NEUT (AUTO) 4.8 10^3/uL (1.7-8.2); BASOPHILS % (AUTO) 0.9 % (0-2); HEMOGLOBIN 10.4 g/dL (12.0-15.5); HGB HCT DIFFERENCE -0.8; MEAN CORPUSCULAR HGB CONC 32.4 g/dL (32.0-36.0); MEAN CORPUSCULAR VOLUME 96 fl (80-97); MONOCYTES % (AUTO) 4.9 % (3-13); RED BLOOD COUNT 3.35 10^6/uL (3.72-5.28); RED CELL DISTRIBUTION WIDTH 19.7 % (11.5-14.0); SEGMENTED NEUTROPHILS % (AUTO) 75.2 % (42-78); WHITE BLOOD COUNT 6.4 10^3/uL (4.0-10.5)
[2016-12-08 06:36] LABS: BLOOD UREA NITROGEN 32 mg/dL (7-20); CALCIUM 8.9 mg/dL (8.4-10.2); CHLORIDE 90 mmol/L (98-107); CREATININE RESULT 0.95 mg/dL (0.52-1.25); GLUCOSE 90 mg/dL (75-110); POTASSIUM 3.8 mmol/L (3.6-5.0); SODIUM 138.5 mmol/L (137-145)
[2016-12-08 06:48] LABS: ANION GAP 11 (5-19)
[2016-12-08 06:52] LABS: CARBON DIOXIDE 38 mmol/L (22-30)
[2016-12-08] MEDS: BUMETANIDE 1 MG TABLET PO SCH (10:13)
[2016-12-08] MEDS: DOCUSATE SODIUM 100 MG CAPSULE PO SCH ×2 (10:16→17:12)
[2016-12-08] MEDS: THIAMINE HCL 100 MG TABLET PO SCH (10:18)
[2016-12-08] MEDS: MIDODRINE HCL 5 MG TABLET PO SCH ×3 (10:19→17:12)
[2016-12-08] MEDS: SILDENAFIL CITRATE 20 MG TABLET PO SCH ×3 (10:19→17:12)
[2016-12-08] MEDS: GABAPENTIN 300 MG CAPSULE PO SCH ×2 (10:19→22:04)
[2016-12-08] MEDS: GUAIFENESIN 600 MG TABLET.SA PO SCH ×2 (10:19→22:04)
[2016-12-08] MEDS: CEFTRIAXONE 1 GM/D5W RTU 1 GM/50 ML RTUPB IV SCH (10:20)
[2016-12-08] MEDS: SPIRONOLACTONE 25 MG TABLET PO SCH (10:22)
[2016-12-08] MEDS: ATENOLOL 50 MG TABLET PO SCH (10:31)
--- NOTE | 2016-12-08 14:06 | PDOC PROGRESS REPORT ---
Subjective Progress Note for:: 12/08/16 Subjective:: reason for visit: f/u hypoxic resp failure, heart failure hospital course: per other's notes = "MARIANO HENRY is a 71 year old female a past medical history pneumonia, diastolic heart failure, severe pulmonary hypertension, atrial fibrillation, obstructive sleep apnea, morbid obesity, hypoventilation syndrome, venous stasis, deep vein thrombosis, stage III chronic kidney disease, renal insufficiency and recent GI bleed. She was transferred to [facility] and 24 hours ago from [facility] in [facility] on scheduled Xanax. shelter staff were challenged by hypoxia and difficulty applying BiPAP and subsequently transferred to the emergency room for evaluation where she was found to be obtunded. Her workup reveals a right upper lobe infiltrate, and hypercapnic respiratory failure. She started on empiric BiPAP and referred to the hospitalist for admission. Her CODE STATUS is DNR. She is unable to provide history. 12/05 - She is breathing more easily this morning. Is off of BiPAP for her breakfast and seems to be tolerating a nasal cannula well. 12/06 -She is felt to be in CHF. She is diuresing very slowly. She is improving very slowly. He is still requiring BiPAP most of the day. She wonders if she has pneumonia. He has been afebrile and has had a normal white blood count. 12/07 -she is being treated for CHF. She is also obese with hypoventilation and hypercarbia. She is being treated empirically with antibiotics for pneumonia even though she is afebrile and her white blood count is normal. The chest x- ray does show some airspace disease in the lower lobes. She has diuresed very slowly. She continues to show easy O2 desaturation with minimal exertion. She has required BiPAP on and off." I inherited her care Wednesday and found her sitting upright in bed with the BiPAP off, breathing easily while at rest and sats of 90% on 5L/min via NC. ROS: she reports improvement in her condition, particularly her breathing but states she remains very weak and "listless" and wants the thompson to remain as she gets severely SOA with even minimal movement. she denies chest pain, palpitations, cough with phlegm, fever/chills, total 10 systems reviewed, remaining systems negative. Physical Exam Vital Signs: Temp Pulse Resp BP Pulse Ox 98.8 F 89 26 H 130/69 H 95 12/08/16 11:06 12/08/16 11:49 12/08/16 11:49 12/08/16 11:06 12/08/16 11:49 Intake & Output 12/07/16 12/08/16 12/09/16 06:59 06:59 06:59 Intake Total 1328 1635 240 Output Total 1800 1550 300 Balance -472 85 -60 Weight 128.9 kg 127.8 kg General appearance: PRESENT: no acute distress, morbidly obese, well-developed Head exam: PRESENT: atraumatic, normocephalic Eye exam: PRESENT: conjunctiva pink. ABSENT: conjunctival injection, scleral icterus Mouth exam: PRESENT: moist, neck supple Neck exam: PRESENT: full ROM. ABSENT: JVD - difficult to assess due to large neck pannus, tracheal deviation Respiratory exam: PRESENT: accessory muscle use - intercostal and abd muscle assist, crackles - bilat bases. ABSENT: rhonchi, stridor, wheezes Cardiovascular exam: ABSENT: diastolic murmur, rubs, tachycardia Pulses: PRESENT: normal carotid pulses, normal radial pulses GI/Abdominal exam: PRESENT: normal bowel sounds, soft. ABSENT: tenderness Extremities exam: PRESENT: +1 edema. ABSENT: calf tenderness Musculoskeletal exam: ABSENT: ambulatory, full ROM - due to weakness Neurological exam: PRESENT: alert, awake, oriented to person, oriented to place , oriented to time, oriented to situation Psychiatric exam: PRESENT: appropriate affect, normal mood Skin exam: PRESENT: rash - acrocyanotic changes with hypertrophied skin Results Laboratory Results: 12/08/16 05:50 12/08/16 05:50 12/08/16 12/08/16 05:50 05:50 WBC 6.4 RBC 3.35 L Hgb 10.4 L Hct 32.0 L MCV 96 MCH 31.0 MCHC 32.4 RDW 19.7 H Plt Count 316 Seg Neutrophils % 75.2 Lymphocytes % 14.0 Monocytes % 4.9 Eosinophils % 5.0 Basophils % 0.9 Absolute Neutrophils 4.8 Absolute Lymphocytes 0.9 Absolute Monocytes 0.3 Absolute Eosinophils 0.3 Absolute Basophils 0.1 Sodium 138.5 Potassium 3.8 Chloride 90 L Carbon Dioxide 38 H Anion Gap 11 BUN 32 H Creatinine 0.95 Est GFR ( Amer) > 60 Est GFR (Non-Af Amer) 58 L Glucose 90 Calcium 8.9 12/03/16 12/03/16 12/03/16 06:20 06:20 12:02 Creatine Kinase < 20 L < 20 L CK-MB (CK-2) 0.55 Troponin I 0.028 NT-Pro-B Natriuret Pep 12/03/16 12/03/16 12/03/16 12:02 18:20 18:20 Creatine Kinase < 20 L CK-MB (CK-2) 0.47 0.32 Troponin I 0.018 0.016 NT-Pro-B Natriuret Pep 12/04/16 04:31 Creatine Kinase CK-MB (CK-2) Troponin I NT-Pro-B Natriuret Pep [id number] H Impressions: Chest X-Ray 12/06/16 00:00 IMPRESSION: NO CHANGE IN APPEARANCE OF THE CHEST. Assessment & Plan - Diagnosis (1) Acute and chronic respiratory failure ([id number]) Qualifiers: Respiratory failure complication: hypoxia and hypercapnia Qualified Code(s): J96.21 - Acute and chronic respiratory failure with hypoxia; J96.22 - Acute and chronic respiratory failure with hypercapnia Is this a current diagnosis for this admission?: YesPlan: improved but not back to baseline. continue effort to increase activity and lessen time spent on NiPPV (BiPAP). continue supplemental O2 but keep her sats 88-92% only. (2) CHF (congestive heart failure) Qualifiers: Congestive heart failure type: diastolic Congestive heart failure chronicity: acute on chronic Qualified Code(s): I50.33 - Acute on chronic diastolic (congestive) heart failure Is this a current diagnosis for this admission?: YesPlan: improved but not back to baseline. continue attempts at diuresis (3) Chronic kidney disease (CKD) stage G3a/A1, moderately decreased glomerular filtration rate (GFR) between 45-59 mL/min/1.73 square meter and albuminuria creatinine ratio less than 30 mg/g Is this a current diagnosis for this admission?: YesPlan: stable in spite of diuresis which is encouraging. continue to monitor (4) DNR (do not resuscitate) Is this a current diagnosis for this admission?: Yes (5) Obesity hypoventilation syndrome Is this a current diagnosis for this admission?: Yes (6) Pneumonia Qualifiers: Pneumonia type: due to unspecified organism Lung location: unspecified part of lung Is this a current diagnosis for this admission?: YesPlan: mild improved. continue empiric abx, consider very short course as she doesn't have leukocytosis, fever and abnl's seen on imaging might be explained by heart failure. - Time Time Spent with patient: 25-34 minutes Medications reviewed and adjusted accordingly: Yes Anticipated discharge: SNF - came from [place] Within: within 72 hours - Plan Summary Plan Summary: start PT, remove thompson in am
--- NOTE | 2016-12-08 17:38 | PDOC PROGRESS REPORT ---
Subjective Progress Note for:: 12/08/16 Physical Exam Vital Signs: Temp Pulse Resp BP Pulse Ox 98.8 F 68 22 H 130/69 H 93 12/08/16 11:06 12/08/16 16:05 12/08/16 16:05 12/08/16 11:06 12/08/16 16:05 Intake & Output 12/07/16 12/08/16 12/09/16 06:59 06:59 06:59 Intake Total 1328 1635 240 Output Total 1800 1550 300 Balance -472 85 -60 Weight 128.9 kg 127.8 kg General appearance: PRESENT: no acute distress, cooperative, disheveled, obese, well-developed Head exam: PRESENT: atraumatic, normocephalic Eye exam: PRESENT: conjunctiva pale, EOMI Mouth exam: PRESENT: dry mucosa, neck supple Neck exam: ABSENT: carotid bruit, JVD, lymphadenopathy, thyromegaly Respiratory exam: PRESENT: crackles, decreased breath sounds, prolonged expiratory phas, rhonchi, unlabored Cardiovascular exam: PRESENT: RRR, +S1, +S2 Pulses: PRESENT: normal radial pulses GI/Abdominal exam: PRESENT: normal bowel sounds, soft. ABSENT: distended, guarding, mass, organolmegaly, rebound, tenderness Rectal exam: PRESENT: deferred Gentrourinary exam: PRESENT: indwelling catheter Musculoskeletal exam: PRESENT: normal inspection Neurological exam: PRESENT: alert, awake Psychiatric exam: PRESENT: normal mood Skin exam: PRESENT: dry Results Laboratory Results: 12/08/16 05:50 12/08/16 05:50 12/08/16 12/08/16 05:50 05:50 WBC 6.4 RBC 3.35 L Hgb 10.4 L Hct 32.0 L MCV 96 MCH 31.0 MCHC 32.4 RDW 19.7 H Plt Count 316 Seg Neutrophils % 75.2 Lymphocytes % 14.0 Monocytes % 4.9 Eosinophils % 5.0 Basophils % 0.9 Absolute Neutrophils 4.8 Absolute Lymphocytes 0.9 Absolute Monocytes 0.3 Absolute Eosinophils 0.3 Absolute Basophils 0.1 Sodium 138.5 Potassium 3.8 Chloride 90 L Carbon Dioxide 38 H Anion Gap 11 BUN 32 H Creatinine 0.95 Est GFR ( Amer) > 60 Est GFR (Non-Af Amer) 58 L Glucose 90 Calcium 8.9 12/03/16 12/03/16 12/03/16 06:20 06:20 12:02 Creatine Kinase < 20 L < 20 L CK-MB (CK-2) 0.55 Troponin I 0.028 NT-Pro-B Natriuret Pep 12/03/16 12/03/16 12/03/16 12:02 18:20 18:20 Creatine Kinase < 20 L CK-MB (CK-2) 0.47 0.32 Troponin I 0.018 0.016 NT-Pro-B Natriuret Pep 12/04/16 04:31 Creatine Kinase CK-MB (CK-2) Troponin I NT-Pro-B Natriuret Pep 01474 H Impressions: Chest X-Ray 12/06/16 00:00 IMPRESSION: NO CHANGE IN APPEARANCE OF THE CHEST. Assessment & Plan - Diagnosis (1) COPD with acute exacerbation Is this a current diagnosis for this admission?: Yes (2) Hypoxia Is this a current diagnosis for this admission?: Yes (3) Obesity hypoventilation syndrome Is this a current diagnosis for this admission?: Yes (4) Acute and chronic respiratory failure with hypercapnia Is this a current diagnosis for this admission?: Yes (5) Obstructive sleep apnea Is this a current diagnosis for this admission?: Yes (6) Tobacco dependency Is this a current diagnosis for this admission?: Yes
[2016-12-08] MEDS: ATORVASTATIN CALCIUM 40 MG TABLET PO SCH (22:04)
--- NOTE | 2016-12-08 22:33 | PROGRESS NOTE E ---
Progress Note NAME: MARIANO HENRY : 1945 AGE: 71Y DATE: 12/08/2016 ROOM: 325 SUBJECTIVE: The patient was seen from 8:40 a.m. to 9:10 a.m. The patient states today her breathing is worse and she is on the BiPAP. She denies any PND or orthopnea. Her heart rate remains controlled but still in atrial fibrillation. The patient's chronic lymphedema of extremities with stasis dermatitis is the same. There are no TIA or CVA symptoms. There is no evidence of GI bleed. There is no anginal symptoms. OBJECTIVE: GENERAL: On examination she is morbidly obese. At present seems to be in some mild respiratory distress but no accessory muscles of respiration used. VITAL SIGNS: Afebrile with a temperature of 98.4 degrees Fahrenheit, pulse is 62 beats per minute, blood pressure is 105/51, respirations are 16 per minute on BiPAP with FiO2 of 55%, 02 saturations are 93%. HEAD: Atraumatic/normocephalic. EYES: Pupils are equal, round, regular, reactive to light and accommodation. Extraocular movements are normal. There is mild conjunctival pallor. There is no scleral icterus. ENT: Negative. NECK: The neck is supple. There is no JVD. Carotids are equal. There is no bruit. There is no goiter. There is no lymphadenopathy. Trachea is central. LUNGS: The lungs show scattered rhonchi but no wheezing bilaterally. There is diminished air entry and prolonged expiration on auscultation. On percussion there is hyperresonance. There is no chest wall tenderness on the bases. There is dullness and a few crackles just above the lungs. HEART: S1, S2 is heard. S1 is of variable intensity. There is no S3 gallop. There is no S4 gallop. There is a systolic murmur in the left sternal border and the apex. There is no rub. ABDOMEN: Soft, nontender. There is no hepatosplenomegaly. Bowel sounds are well heard. Abdomen is obese. There are no tender areas or masses. EXTREMITIES: Femorals are diminished. There are no femoral bruits. Leg pulses are difficult to palpate due to chronic lymphedema. The patient has chronic lymphedema with venous stasis dermatitis changes. There is no evidence of cellulitis. There is no cyanosis or clubbing. CENTRAL NERVOUS SYSTEM: The patient is conscious, awake, alert and oriented x3 with no focal deficits. PSYCHIATRIC: The patient's judgment and insight are intact. Her affect appears to be normal. The patient's 24-hour intake is 1635 mL. Output is 1550 mL. LABORATORY: The patient's white count is 6400, hemoglobin is 10.4, hematocrit is 32, the patient's platelet count is 316,000. The patient's sodium is 138.5, potassium is 3.8, chloride is 90, CO2 is 38. The patient's BUN is 32, creatinine is 0.95, GFR is 58 which is improved but still at stage 3A. The glucose is 90, calcium is 8.9. IMPRESSION: 1. CONGESTIVE HEART FAILURE. The patient's [id number]-hp-[id number] diastolic heart failure and also secondary to volume overload due to patient's chronic kidney disease. 2. COPD WITH ACUTE EXACERBATION. Continue positive pressure ventilation nasal O2 and anti-COPD bronchodilators and continue antibiotics. Patient with some improvement but not back to baseline. 3. BILATERAL BASILAR INFILTRATES WITH PLEURAL EFFUSIONS MOST LIKELY SECONDARY TO PNEUMONIA. Continue antibiotics. 4. OBESITY HYPERVENTILATION SYNDROME. Continue positive pressure ventilation when the patient is asleep. 5. ANEMIA ASSOCIATED WITH ACUTE BLOOD LOSS. At present, hemoglobin has come up to 10.4. 6. OBSTRUCTIVE SLEEP APNEA. Continue CPAP when the patient is sleeping at night. 7. CHRONIC ATRIAL FIBRILLATION CONTROLLED VENTRICULAR RESPONSE. Continue atenolol. The patient refuses anticoagulation due to prior GI bleed. 8. THROMBOCYTOPENIA. No evidence of bleeding. 9. PULMONARY HYPERTENSION. Continue sildenafil. 10. TOBACCO ABUSE DISORDER. At present the patient is on a Nicoderm patch. Patient has been given tobacco abuse counseling. 11. HYPOTHYROIDISM. 12. HISTORY OF HYPERTENSION. The patient's blood pressure is no stable on midodrine. Continue midodrine. Note that the patient is DNR. Her surrogate healthcare decision maker has not changed. Note 30 minutes spent on this patient with more than 50% of the time spent in direct patient care and review of the patient's medications and discussion with other caregivers on the case. Decision-making is of moderate complexity in this case in view of the patient's multiple medical problems. Will follow with you. DICTATING PHYSICIAN: THOMAS BLANCA M.D. [id number] PHY#: [id number] ID: [id number] JOB#: [id number] ACCT: [id number] cc: >
[2016-12-09] MEDS: IPRATROPIUM/ALBUTEROL 0.5-2.5 MG/3 ML AMPUL NEB SCH ×6 (04:02→23:28)
[2016-12-09] MEDS: HEPARIN SOD (PORCINE) 5,000 UNIT/ML 1 ML SYRINGE SUBCUT SCH ×3 (06:08→21:09)
[2016-12-09] MEDS: LEVOTHYROXINE SODIUM 0.15 MG TABLET PO SCH (06:08)
[2016-12-09] MEDS: VANCOMYCIN HCL 750 MG in DEXTROSE 5%-WATER 250 ML IV SCH (06:22)
[2016-12-09 06:41] LABS: ANION GAP 10 (5-19); BLOOD UREA NITROGEN 29 mg/dL (7-20); CALCIUM 8.7 mg/dL (8.4-10.2); CARBON DIOXIDE 38 mmol/L (22-30); CHLORIDE 92 mmol/L (98-107); CREATININE RESULT 0.92 mg/dL (0.52-1.25); GLUCOSE 80 mg/dL (75-110); MAGNESIUM 1.7 mg/dL (1.6-2.3); POTASSIUM 3.6 mmol/L (3.6-5.0); SODIUM 140.1 mmol/L (137-145)
[2016-12-09 06:47] LABS: ARTERIAL BLOOD BASE EXCESS 14.8 mmol/L; ARTERIAL BLOOD O2 SATURATION 80.5 % (94-98)
[2016-12-09] MEDS: SILDENAFIL CITRATE 20 MG TABLET PO SCH ×3 (09:47→16:10)
[2016-12-09] MEDS: GUAIFENESIN 600 MG TABLET.SA PO SCH ×2 (09:48→21:09)
[2016-12-09] MEDS: BUMETANIDE 1 MG TABLET PO SCH (09:48)
[2016-12-09] MEDS: MIDODRINE HCL 5 MG TABLET PO SCH ×3 (09:49→17:21)
[2016-12-09] MEDS: THIAMINE HCL 100 MG TABLET PO SCH (09:49)
[2016-12-09] MEDS: GABAPENTIN 300 MG CAPSULE PO SCH ×2 (09:49→21:09)
[2016-12-09] MEDS: SPIRONOLACTONE 25 MG TABLET PO SCH (09:49)
[2016-12-09] MEDS: DOCUSATE SODIUM 100 MG CAPSULE PO SCH ×2 (09:50→17:21)
[2016-12-09] MEDS: CEFTRIAXONE 1 GM/D5W RTU 1 GM/50 ML RTUPB IV SCH (09:50)
--- NOTE | 2016-12-09 10:45 | PDOC PROGRESS REPORT ---
Subjective Progress Note for:: 12/09/16 Subjective:: reason for visit: f/u hypoxic resp failure, heart failure, pneumonia hospital course: per other's notes = "MARIANO HENRY is a 71 year old female a past medical history pneumonia, diastolic heart failure, severe pulmonary hypertension, atrial fibrillation, obstructive sleep apnea, morbid obesity, hypoventilation syndrome, venous stasis, deep vein thrombosis, stage III chronic kidney disease, renal insufficiency and recent GI bleed. She was transferred to [facility] and 24 hours ago from [facility] in [facility] on scheduled Xanax. [facility] staff were challenged by hypoxia and difficulty applying BiPAP and subsequently transferred to the emergency room for evaluation where she was found to be obtunded. Her workup reveals a right upper lobe infiltrate, and hypercapnic respiratory failure. She started on empiric BiPAP and referred to the hospitalist for admission. Her CODE STATUS is DNR. She is unable to provide history. 12/05 - She is breathing more easily this morning. Is off of BiPAP for her breakfast and seems to be tolerating a nasal cannula well. 12/06 -She is felt to be in CHF. She is diuresing very slowly. She is improving very slowly. He is still requiring BiPAP most of the day. She wonders if she has pneumonia. He has been afebrile and has had a normal white blood count. 12/07 -she is being treated for CHF. She is also obese with hypoventilation and hypercarbia. She is being treated empirically with antibiotics for pneumonia even though she is afebrile and her white blood count is normal. The chest x- ray does show some airspace disease in the lower lobes. She has diuresed very slowly. She continues to show easy O2 desaturation with minimal exertion. She has required BiPAP on and off." I inherited her care Wednesday and found her sitting upright in bed with the BiPAP off, breathing easily while at rest and sats of 90% on 5L/min via NC. Since that time she continues to require intermittent use of the BPAP for episodic breathlessness, resp fatigue and low sats. ROS: she still gets severely SOA with even minimal movement, sometimes even at rest; continues to c/o leg weakness but no pain today. she denies chest pain , palpitations, cough with phlegm, fever/chills, total 10 systems reviewed, remaining systems negative. Physical Exam Vital Signs: Temp Pulse Resp BP Pulse Ox 98.1 F 56 L 18 127/59 H 96 12/09/16 07:41 12/09/16 07:41 12/09/16 07:41 12/09/16 07:41 12/09/16 07:41 Intake & Output 12/08/16 12/09/16 12/10/16 06:59 06:59 06:59 Intake Total 1635 1185 Output Total 1550 1400 Balance 85 -215 Weight 127.8 kg 126.3 kg General appearance: PRESENT: mild distress - respiratory Head exam: PRESENT: atraumatic, normocephalic Eye exam: PRESENT: EOMI. ABSENT: scleral icterus Mouth exam: PRESENT: moist, neck supple Neck exam: PRESENT: full ROM. ABSENT: tracheal deviation Respiratory exam: PRESENT: accessory muscle use, clear to auscultation flory - diminished but clear Cardiovascular exam: PRESENT: RRR. ABSENT: systolic murmur Pulses: PRESENT: normal radial pulses GI/Abdominal exam: PRESENT: normal bowel sounds, soft. ABSENT: tenderness Extremities exam: PRESENT: pedal edema Neurological exam: PRESENT: alert, awake, oriented to person, oriented to place , oriented to time, oriented to situation Psychiatric exam: PRESENT: appropriate affect, normal mood. ABSENT: anxious Skin exam: PRESENT: rash - acrocyanotic changes with hypertrophied skin, warm Results Laboratory Results: 12/08/16 05:50 12/09/16 05:13 12/09/16 12/09/16 05:13 06:30 Carbonic Acid 1.92 H HCO3/H2CO3 Ratio 21:1 ABG pH 7.43 ABG pCO2 63.7 H ABG pO2 44.9 L ABG HCO3 41.5 H ABG O2 Saturation 80.5 L ABG Base Excess 14.8 FiO2 5L Sodium 140.1 Potassium 3.6 Chloride 92 L Carbon Dioxide 38 H Anion Gap 10 BUN 29 H Creatinine 0.92 Est GFR ( Amer) > 60 Est GFR (Non-Af Amer) > 60 Glucose 80 Calcium 8.7 Magnesium 1.7 12/03/16 12/03/16 12/03/16 06:20 06:20 12:02 Creatine Kinase < 20 L < 20 L CK-MB (CK-2) 0.55 Troponin I 0.028 NT-Pro-B Natriuret Pep 12/03/16 12/03/16 12/03/16 12:02 18:20 18:20 Creatine Kinase < 20 L CK-MB (CK-2) 0.47 0.32 Troponin I 0.018 0.016 NT-Pro-B Natriuret Pep 12/04/16 12/09/16 04:31 05:13 Creatine Kinase CK-MB (CK-2) Troponin I NT-Pro-B Natriuret Pep 76715 H 6320 H Assessment & Plan - Diagnosis (1) Acute and chronic respiratory failure ([id number]) Qualifiers: Respiratory failure complication: hypoxia and hypercapnia Qualified Code(s): J96.21 - Acute and chronic respiratory failure with hypoxia Is this a current diagnosis for this admission?: YesPlan: improved but not back to baseline. continue effort to increase activity and lessen time spent on NiPPV (BiPAP) but after discussing with dr irby it seems clear she has reached a point in her care where she is BiPAP dependent and would benefit from Trilogy. Nadia is working to find placement in rehab that understands and willing to use this device. continue supplemental O2 but keep her sats 88-92% only. (2) CHF (congestive heart failure) Qualifiers: Congestive heart failure type: diastolic Congestive heart failure chronicity: acute on chronic Qualified Code(s): I50.33 - Acute on chronic diastolic (congestive) heart failure Is this a current diagnosis for this admission?: YesPlan: improved but not back to baseline. continue attempts at gentle diuresis (3) Chronic kidney disease (CKD) stage G3a/A1, moderately decreased glomerular filtration rate (GFR) between 45-59 mL/min/1.73 square meter and albuminuria creatinine ratio less than 30 mg/g Is this a current diagnosis for this admission?: YesPlan: stable in spite of diuresis which is encouraging. continue to monitor (4) DNR (do not resuscitate) Is this a current diagnosis for this admission?: Yes (5) Obesity hypoventilation syndrome Is this a current diagnosis for this admission?: YesPlan: certainly complicates her resp status and ability to compensate thereby contributing to her dependence on NiVPPV like BiPAP or AVAPS (6) Pneumonia Qualifiers: Pneumonia type: due to unspecified organism Lung location: unspecified part of lung Is this a current diagnosis for this admission?: YesPlan: mild improved. continue empiric abx, consider very short course as she doesn't have leukocytosis, fever and abnl's seen on imaging might be explained by heart failure; hard stop is 6/2 or 9d which should be adequate. - Time Time Spent with patient: 35 or more minutes Anticipated discharge: Acute Rehab Within: within 24 hours - Plan Summary Plan Summary: she is stable for placement in rehab when appropriate arrangements can be made
--- NOTE | 2016-12-09 15:52 | PDOC PROGRESS REPORT ---
Subjective Progress Note for:: 12/09/16 Subjective:: Dyspnea last night placed on BiPAP doing much better Physical Exam Vital Signs: Temp Pulse Resp BP Pulse Ox 98.3 F 79 14 105/57 L 98 12/09/16 11:05 12/09/16 11:51 12/09/16 11:51 12/09/16 11:05 12/09/16 11:51 Intake & Output 12/08/16 12/09/16 12/10/16 06:59 06:59 06:59 Intake Total 1635 1185 342 Output Total 1550 1400 200 Balance 85 -215 142 Weight 127.8 kg 126.3 kg General appearance: PRESENT: no acute distress, disheveled, obese, well- developed Head exam: PRESENT: atraumatic, normocephalic Eye exam: PRESENT: conjunctiva pale, EOMI Mouth exam: PRESENT: dry mucosa, neck supple Neck exam: ABSENT: carotid bruit, JVD, lymphadenopathy, thyromegaly Respiratory exam: PRESENT: decreased breath sounds, prolonged expiratory phas, rhonchi, symmetrical, unlabored Cardiovascular exam: PRESENT: RRR, +S1, +S2 Pulses: PRESENT: normal radial pulses GI/Abdominal exam: PRESENT: normal bowel sounds, soft. ABSENT: distended, guarding, mass, organolmegaly, rebound, tenderness Rectal exam: PRESENT: deferred Musculoskeletal exam: PRESENT: normal inspection Neurological exam: PRESENT: alert, awake Psychiatric exam: PRESENT: normal mood Skin exam: PRESENT: dry, warm Results Laboratory Results: 12/08/16 05:50 12/09/16 05:13 12/09/16 12/09/16 05:13 06:30 Carbonic Acid 1.92 H HCO3/H2CO3 Ratio 21:1 ABG pH 7.43 ABG pCO2 63.7 H ABG pO2 44.9 L ABG HCO3 41.5 H ABG O2 Saturation 80.5 L ABG Base Excess 14.8 FiO2 5L Sodium 140.1 Potassium 3.6 Chloride 92 L Carbon Dioxide 38 H Anion Gap 10 BUN 29 H Creatinine 0.92 Est GFR ( Amer) > 60 Est GFR (Non-Af Amer) > 60 Glucose 80 Calcium 8.7 Magnesium 1.7 12/03/16 12/03/16 12/03/16 06:20 06:20 12:02 Creatine Kinase < 20 L < 20 L CK-MB (CK-2) 0.55 Troponin I 0.028 NT-Pro-B Natriuret Pep 12/03/16 12/03/16 12/03/16 12:02 18:20 18:20 Creatine Kinase < 20 L CK-MB (CK-2) 0.47 0.32 Troponin I 0.018 0.016 NT-Pro-B Natriuret Pep 12/04/16 12/09/16 04:31 05:13 Creatine Kinase CK-MB (CK-2) Troponin I NT-Pro-B Natriuret Pep 39657 H 6320 H Impressions: Chest X-Ray 12/06/16 00:00 IMPRESSION: NO CHANGE IN APPEARANCE OF THE CHEST. Assessment & Plan - Diagnosis (1) COPD with acute exacerbation Is this a current diagnosis for this admission?: Yes (2) Hypoxia Is this a current diagnosis for this admission?: Yes (3) Obesity hypoventilation syndrome Is this a current diagnosis for this admission?: Yes (4) Acute and chronic respiratory failure with hypercapnia Is this a current diagnosis for this admission?: Yes (5) Obstructive sleep apnea Is this a current diagnosis for this admission?: Yes (6) Tobacco dependency Is this a current diagnosis for this admission?: Yes
--- NOTE | 2016-12-09 20:48 | PROGRESS NOTE E ---
Progress Note NAME: MARIANO HENRY : 1945 AGE: 71Y DATE: 12/09/2016 ROOM: 325 The patient was seen from 10:40 a.m. to 11:10 a.m. SUBJECTIVE: Note that the patient seems to be slightly more short of breath today, and she is on the BiPAP. She denies any chest pain or discomfort. There are no TIA or CVA symptoms. There is no *------* or GI bleed. The patient continues to be in atrial fibrillation with controlled ventricular response. There is no ventricular arrhythmia seen. The patient's chronic lymphedema of the lower extremities remains the same. She has no anginal symptoms. OBJECTIVE: VITAL SIGNS: The patient is afebrile with a temperature of 98.3 degrees Fahrenheit axillary. Pulse is 64 beats per minute. Blood pressure 105/57. Respirations 20 per minute. O2 saturations are 97% on BiPAP; O2 saturations were 39%. GENERAL: On examination, the patient is morbidly obese, at present seems to be in mild respiratory distress but has no accessory muscles of respiration used. She is wearing the BiPAP. HEENT: Head is atraumatic, normocephalic. Eyes: Pupils are equal, round, regular, reactive to light and accommodation. Extraocular movements normal. There is mild conjunctival pallor. There is no scleral icterus. ENT is negative. NECK: Supple. There is no JVD. Carotids are equal; there is no bruit. There is no goiter. There is no lymphadenopathy. Trachea is central. LUNGS: A few scattered rhonchi but no wheezing bilaterally. There is diminished air entry and prolonged expiration on auscultation. On percussion, there is hyperresonance, but in the bases, there is dullness and a few crackles bilaterally. CARDIOVASCULAR: S1, S2 are heard. S1 is of variable intensity. There is no S3 gallop. There is no S4 gallop. There is systolic murmur in left sternal border and the apex. There is no rub. ABDOMEN: Soft, nontender. There is no hepatosplenomegaly. Bowel sounds are well heard. Abdomen is obese. There are no tender areas or masses. EXTREMITIES: There is chronic lymphedema present. There are no femoral bruits. Leg pulses are difficult to palpate due to chronic lymphedema. There are venous stasis dermatitis changes in the legs. There is no cellulitis. There is no cyanosis or clubbing. CENTRAL NERVOUS SYSTEM: The patient is conscious, awake, alert, oriented x3 with no focal deficits. PSYCHIATRIC: The patient's judgment and insight are intact. Her affect appears to be normal. The patient's 24-hour intake is 1185 mL; output is 1400 mL. DIAGNOSTIC TESTS: The patient's sodium is 140.1, potassium 3.6. Chloride is 92. CO2 is 38. The patient's BUN is 29; creatinine is 0.92. GFR is greater than 60. Glucose is 80. Calcium is 8.7. Magnesium is 1.7. The patient's anti-ProBNP is 6320. ASSESSMENT: 1. CONGESTIVE HEART FAILURE. This seems to be acute on chronic diastolic heart failure and also secondary to volume overload due to patient's acute on chronic kidney disease. At present, GFR is back to normal. 2. CHRONIC OBSTRUCTIVE PULMONARY DISEASE WITH ACUTE EXACERBATION. Continue positive pressure ventilation without oxygen and anti-COPD bronchodilators and continue antibiotics. 3. BIBASILAR INFILTRATES MOST LIKELY SECONDARY TO PNEUMONIA. Continue antibiotics. There are also associated pleural effusions. 4. OBESITY HYPOVENTILATION SYNDROME. Continue positive pressure ventilation with the patient asleep. 5. ANEMIA ASSOCIATED WITH ACUTE BLOOD LOSS RECENTLY. At present, hemoglobin has come up to 10.4 yesterday. 6. OBSTRUCTIVE SLEEP APNEA. Continue CPAP when the patient is sleeping at night. 7. CHRONIC ATRIAL FIBRILLATION WITH CONTROLLED VENTRICULAR RESPONSE. Continue atenolol at the current dose. The patient refuses anticoagulation due to prior GI bleed. 8. THROMBOCYTOPENIA. No evidence of bleeding. 9. PULMONARY HYPERTENSION. Continue sildenafil. 10. TOBACCO ABUSE DISORDER. At present, is on Nicoderm. The patient has already been given tobacco cessation counseling. 11. HYPOTHYROIDISM. Continue replacement. 12. HISTORY OF HYPERTENSION. At present, patient's blood pressure is low normal on midodrine. Note 30 minutes spent on this patient with more than 50% of the time spent in direct patient care and reviewing the patient's medications and discussions with other caregivers. Decision making is of moderate complexity in view of the multiple comorbidities present in this patient. We will follow with you. Discussed with other caregivers on the case. DICTATING PHYSICIAN: THOMAS BLANCA M.D. [id number] PHY#: [id number] ID: [id number] JOB#: [id number] ACCT: [id number] cc: >
[2016-12-09] MEDS: ATORVASTATIN CALCIUM 40 MG TABLET PO SCH (21:09)
[2016-12-10] MEDS: IPRATROPIUM/ALBUTEROL 0.5-2.5 MG/3 ML AMPUL NEB SCH ×5 (03:47→20:36)
[2016-12-10] MEDS: HEPARIN SOD (PORCINE) 5,000 UNIT/ML 1 ML SYRINGE SUBCUT SCH ×3 (06:15→21:42)
[2016-12-10] MEDS: LEVOTHYROXINE SODIUM 0.15 MG TABLET PO SCH (06:16)
[2016-12-10] MEDS: SILDENAFIL CITRATE 20 MG TABLET PO SCH ×3 (07:42→17:13)
[2016-12-10] MEDS: BUMETANIDE 1 MG TABLET PO SCH (09:39)
[2016-12-10] MEDS: MIDODRINE HCL 5 MG TABLET PO SCH ×3 (09:40→17:13)
[2016-12-10] MEDS: SPIRONOLACTONE 25 MG TABLET PO SCH (09:40)
[2016-12-10] MEDS: THIAMINE HCL 100 MG TABLET PO SCH (09:40)
[2016-12-10] MEDS: GABAPENTIN 300 MG CAPSULE PO SCH ×2 (09:40→21:41)
[2016-12-10] MEDS: GUAIFENESIN 600 MG TABLET.SA PO SCH ×2 (09:40→21:41)
[2016-12-10] MEDS: CEFTRIAXONE 1 GM/D5W RTU 1 GM/50 ML RTUPB IV SCH (09:41)
[2016-12-10] MEDS: DOCUSATE SODIUM 100 MG CAPSULE PO SCH ×2 (09:42→17:14)
--- NOTE | 2016-12-10 12:54 | PDOC PROGRESS REPORT ---
Subjective Progress Note for:: 12/10/16 Subjective:: reason for visit: f/u hypoxic resp failure, heart failure, pneumonia hospital course: per other's notes = "MARIANO HENRY is a 71 year old female a past medical history pneumonia, diastolic heart failure, severe pulmonary hypertension, atrial fibrillation, obstructive sleep apnea, morbid obesity, hypoventilation syndrome, venous stasis, deep vein thrombosis, stage III chronic kidney disease, renal insufficiency and recent GI bleed. She was transferred to [facility] and 24 hours ago from [facility] in [facility] on scheduled Xanax. care home staff were challenged by hypoxia and difficulty applying BiPAP and subsequently transferred to the emergency room for evaluation where she was found to be obtunded. Her workup reveals a right upper lobe infiltrate, and hypercapnic respiratory failure. She started on empiric BiPAP and referred to the hospitalist for admission. Her CODE STATUS is DNR. She is unable to provide history. 12/05 - She is breathing more easily this morning. Is off of BiPAP for her breakfast and seems to be tolerating a nasal cannula well. 12/06 -She is felt to be in CHF. She is diuresing very slowly. She is improving very slowly. He is still requiring BiPAP most of the day. She wonders if she has pneumonia. He has been afebrile and has had a normal white blood count. 12/07 -she is being treated for CHF. She is also obese with hypoventilation and hypercarbia. She is being treated empirically with antibiotics for pneumonia even though she is afebrile and her white blood count is normal. The chest x- ray does show some airspace disease in the lower lobes. She has diuresed very slowly. She continues to show easy O2 desaturation with minimal exertion. She has required BiPAP on and off." I inherited her care Wednesday and found her sitting upright in bed with the BiPAP off, breathing easily while at rest and sats of 90% on 5L/min via NC. Since that time she continues to require intermittent use of the BPAP for episodic breathlessness, resp fatigue and low sats. ROS: she still gets severely SOA with even minimal movement, sometimes even at rest; continues to c/o leg weakness but no pain today. she denies chest pain , palpitations, cough with phlegm, fever/chills, total 10 systems reviewed, remaining systems negative. Physical Exam Vital Signs: Temp Pulse Resp BP Pulse Ox 98.6 F 67 25 H 100/47 L 91 L 12/10/16 07:14 12/10/16 12:08 12/10/16 12:08 12/10/16 07:14 12/10/16 12:08 Intake & Output 12/09/16 12/10/16 12/11/16 06:59 06:59 06:59 Intake Total 1185 964 Output Total 1400 1400 Balance -215 -436 Weight 126.3 kg 122 kg General appearance: PRESENT: no acute distress, morbidly obese Head exam: PRESENT: atraumatic, normocephalic Eye exam: ABSENT: conjunctival injection, scleral icterus Mouth exam: PRESENT: moist, neck supple Neck exam: PRESENT: full ROM. ABSENT: JVD Respiratory exam: PRESENT: clear to auscultation flory, unlabored. ABSENT: accessory muscle use Cardiovascular exam: PRESENT: RRR. ABSENT: systolic murmur Pulses: PRESENT: normal radial pulses, +1 pedal pulses bilateral GI/Abdominal exam: PRESENT: normal bowel sounds, soft. ABSENT: tenderness Extremities exam: PRESENT: pedal edema Musculoskeletal exam: PRESENT: full ROM - but remains weak 3-4/5 at best Neurological exam: PRESENT: alert, awake, oriented to person, oriented to place , oriented to time, oriented to situation Psychiatric exam: PRESENT: appropriate affect, normal mood Skin exam: PRESENT: rash - acrocyanotic changes to the bilat lower legs, warm Results Laboratory Results: 12/08/16 05:50 12/09/16 05:13 12/03/16 12/03/16 12/03/16 06:20 06:20 12:02 Creatine Kinase < 20 L < 20 L CK-MB (CK-2) 0.55 Troponin I 0.028 NT-Pro-B Natriuret Pep 12/03/16 12/03/16 12/03/16 12:02 18:20 18:20 Creatine Kinase < 20 L CK-MB (CK-2) 0.47 0.32 Troponin I 0.018 0.016 NT-Pro-B Natriuret Pep 12/04/16 12/09/16 04:31 05:13 Creatine Kinase CK-MB (CK-2) Troponin I NT-Pro-B Natriuret Pep 98210 H 6320 H Impressions: Chest X-Ray 12/06/16 00:00 IMPRESSION: NO CHANGE IN APPEARANCE OF THE CHEST. Assessment & Plan - Diagnosis (1) Acute and chronic respiratory failure ([id number]) Qualifiers: Respiratory failure complication: hypoxia and hypercapnia Qualified Code(s): J96.21 - Acute and chronic respiratory failure with hypoxia Is this a current diagnosis for this admission?: YesPlan: improved but not back to baseline. continue effort to increase activity and lessen time spent on NiPPV (BiPAP) but after discussing with dr irby it seems clear she has reached a point in her care where she is BiPAP dependent and would benefit from Trilogy. Nadia is working to find placement in rehab that understands and willing to use this device. continue supplemental O2 but keep her sats 88-92% only. (2) CHF (congestive heart failure) Qualifiers: Congestive heart failure type: diastolic Congestive heart failure chronicity: acute on chronic Qualified Code(s): I50.33 - Acute on chronic diastolic (congestive) heart failure Is this a current diagnosis for this admission?: YesPlan: improved but not back to baseline. continue attempts at gentle diuresis (3) Chronic kidney disease (CKD) stage G3a/A1, moderately decreased glomerular filtration rate (GFR) between 45-59 mL/min/1.73 square meter and albuminuria creatinine ratio less than 30 mg/g Is this a current diagnosis for this admission?: YesPlan: stable in spite of diuresis which is encouraging. continue to monitor (4) DNR (do not resuscitate) Is this a current diagnosis for this admission?: Yes (5) Obesity hypoventilation syndrome Is this a current diagnosis for this admission?: Yes (6) Pneumonia Qualifiers: Pneumonia type: due to unspecified organism Lung location: unspecified part of lung Is this a current diagnosis for this admission?: YesPlan: mild improved. continue empiric abx, consider very short course as she doesn't have leukocytosis, fever and abnl's seen on imaging might be explained by heart failure; hard stop is 6/2 or 9d which should be adequate. - Time Time Spent with patient: 25-34 minutes Anticipated discharge: SNF - whenever bed is available
--- NOTE | 2016-12-10 20:08 | PROGRESS NOTE E ---
Progress Note NAME: MARIANO HENRY : 1945 AGE: 71Y DATE: 12/10/2016 ROOM: 325 SUBJECTIVE: The patient denies any chest pain or discomfort. She is still on the BiPAP but is breathing easily. She says she has no shortness of breath at present. There is no PND or orthopnea. She is in chronic atrial fibrillation with controlled ventricular response. There are no TIA or CVA symptoms. There is chronic lymphedema of the lower extremities with venous stasis dermatitis. OBJECTIVE: GENERAL: On examination, the patient is morbidly obese at present on the BiPAP but in no acute distress. VITAL SIGNS: She is afebrile with a temperature of 98.6 degrees Fahrenheit. Pulse is 63 beats per minute. Blood pressure 100/47. Respirations are 20 per minute. O2 saturations are 93% on BiPAP with FiO2 of 50%. HEENT: Head is atraumatic, normocephalic. Eyes: Pupils are equal, round, regular, reactive to light and accommodation. Extraocular movements normal. There is mild conjunctival pallor. There is no scleral icterus. ENT is negative. NECK: Supple. There is no JVD. Carotids are equal; there is no bruit. There is no goiter. There is no lymphadenopathy. Trachea is central. LUNGS: Show diminished air entry and prolonged expiration on auscultation. On percussion, there is hyperresonance. There is no dullness, rhonchi, rales, or wheezing. CARDIOVASCULAR: S1, S2 are heard. S1 is of variable intensity. There is no S3 gallop. There is no S4 gallop. There is systolic murmur at the left sternal border and the apex. There is no rub. ABDOMEN: Soft, nontender. There is no hepatosplenomegaly. Her abdomen is obese. Bowel sounds are well heard. CENTRAL NERVOUS SYSTEM: The patient is conscious, awake, alert, oriented x3 with no focal deficit. PSYCHIATRIC: The patient's judgment and insight are intact. Her affect is normal. The patient's 24-hour intake is 964 mL; output is 1400 mL. ASSESSMENT: 1. CONGESTIVE HEART FAILURE. This seems to be acute on chronic diastolic-type failure and secondary to volume overload due to patient's acute on chronic kidney disease. At present, GFR is back to normal, and the patient's CHF is compensated. 2. COPD. At present no acute exacerbation, back to baseline, but patient continues on positive pressure ventilation as needed with oxygen and anti-COPD medications and continue antibiotics *------*. 3. BIBASILAR INFILTRATES MOST LIKELY SECONDARY TO PNEUMONIA. It seems to be resolved. 4. OBESITY HYPOVENTILATION SYNDROME. 5. ANEMIA ASSOCIATED WITH ACUTE BLOOD LOSS RECENTLY DUE TO GI BLEED. At present, hemoglobin is stable. 6. OBSTRUCTIVE SLEEP APNEA. Continue CPAP when the patient is sleeping at night. 7. CHRONIC ATRIAL FIBRILLATION WITH CONTROLLED VENTRICULAR RESPONSE. Continue atenolol at current dose. Patient refuses anticoagulation because of GI bleed. 8. THROMBOCYTOPENIA. There is petechiae, ecchymosis, or any evidence of bleeding. 9. PULMONARY HYPERTENSION. Continue sildenafil. 10. TOBACCO ABUSE DISORDER. At present is on Nicoderm patch. 11. HYPOTHYROIDISM. Continue replacement. 12. HISTORY OF HYPERTENSION. At present, the patient's blood pressure is low normal on midodrine. RECOMMENDATIONS: Continue current medications. Would recommend that the patient be given a short course of antibiotics. Note: 30 minutes was spent on this patient with more than 50% of the time spent in direct patient care and also review of the patient's medications and discussions with other caregiving providers on the case. In view of the patient's multiple morbid disease conditions and since the patient is improving, this is of moderate complexity in decision making. We will follow you. DICTATING PHYSICIAN: HTOMAS BLANCA M.D. [id number] MEET#: [id number] ID: [id number] JOB#: [id number] ACCT: [id number] cc: >
[2016-12-10] MEDS: ATORVASTATIN CALCIUM 40 MG TABLET PO SCH (21:41)
[2016-12-11] MEDS: IPRATROPIUM/ALBUTEROL 0.5-2.5 MG/3 ML AMPUL NEB SCH ×6 (00:03→20:20)
[2016-12-11] MEDS: LEVOTHYROXINE SODIUM 0.15 MG TABLET PO SCH (05:58)
[2016-12-11] MEDS: HEPARIN SOD (PORCINE) 5,000 UNIT/ML 1 ML SYRINGE SUBCUT SCH ×3 (05:58→21:43)
[2016-12-11] MEDS: SILDENAFIL CITRATE 20 MG TABLET PO SCH ×3 (07:36→16:45)
[2016-12-11] MEDS: BUMETANIDE 1 MG TABLET PO SCH (09:09)
[2016-12-11] MEDS: MIDODRINE HCL 5 MG TABLET PO SCH ×3 (09:10→17:24)
[2016-12-11] MEDS: THIAMINE HCL 100 MG TABLET PO SCH (09:10)
[2016-12-11] MEDS: GABAPENTIN 300 MG CAPSULE PO SCH ×2 (09:10→21:42)
[2016-12-11] MEDS: GUAIFENESIN 600 MG TABLET.SA PO SCH ×2 (09:10→21:42)
[2016-12-11] MEDS: DOCUSATE SODIUM 100 MG CAPSULE PO SCH ×2 (09:10→17:24)
[2016-12-11] MEDS: SPIRONOLACTONE 25 MG TABLET PO SCH (09:10)
--- NOTE | 2016-12-11 10:30 | PDOC PROGRESS REPORT ---
Subjective Progress Note for:: 12/10/16 Subjective:: on BiPAP doing much better Physical Exam Vital Signs: Temp Pulse Resp BP Pulse Ox 98.6 F 73 20 123/62 91 L 12/11/16 07:06 12/11/16 07:53 12/11/16 07:53 12/11/16 07:06 12/11/16 07:53 Intake & Output 12/10/16 12/11/16 12/12/16 06:59 06:59 06:59 Intake Total 964 532 Output Total 1400 1300 Balance -436 -768 Weight 122 kg 121.8 kg General appearance: PRESENT: no acute distress, cooperative, disheveled, morbidly obese, well-developed Head exam: PRESENT: atraumatic, normocephalic Eye exam: PRESENT: conjunctiva pale, EOMI Mouth exam: PRESENT: dry mucosa, neck supple Neck exam: ABSENT: carotid bruit, JVD, lymphadenopathy, thyromegaly Respiratory exam: PRESENT: decreased breath sounds, prolonged expiratory phas, rales, symmetrical, unlabored Cardiovascular exam: PRESENT: irregular rhythm Pulses: PRESENT: normal radial pulses GI/Abdominal exam: PRESENT: normal bowel sounds, soft. ABSENT: distended, guarding, mass, organolmegaly, rebound, tenderness Rectal exam: PRESENT: deferred Gentrourinary exam: PRESENT: indwelling catheter Extremities exam: PRESENT: +1 edema Neurological exam: PRESENT: alert, awake Psychiatric exam: PRESENT: normal mood Skin exam: PRESENT: dry, warm Results Laboratory Results: 12/08/16 05:50 12/09/16 05:13 12/03/16 12/03/16 12/03/16 06:20 06:20 12:02 Creatine Kinase < 20 L < 20 L CK-MB (CK-2) 0.55 Troponin I 0.028 NT-Pro-B Natriuret Pep 12/03/16 12/03/16 12/03/16 12:02 18:20 18:20 Creatine Kinase < 20 L CK-MB (CK-2) 0.47 0.32 Troponin I 0.018 0.016 NT-Pro-B Natriuret Pep 12/04/16 12/09/16 04:31 05:13 Creatine Kinase CK-MB (CK-2) Troponin I NT-Pro-B Natriuret Pep 56915 H 6320 H Impressions: Chest X-Ray 12/06/16 00:00 IMPRESSION: NO CHANGE IN APPEARANCE OF THE CHEST. Assessment & Plan - Diagnosis (1) COPD with acute exacerbation Is this a current diagnosis for this admission?: Yes (2) Hypoxia Is this a current diagnosis for this admission?: Yes (3) Obesity hypoventilation syndrome Is this a current diagnosis for this admission?: YesPlan: retaining PCO2 The above patient has failed BiPAP. This patient would benefit from noninvasive mechanical ventilation via the trilogy AVAPS/AE and faster responding AVAPS rates. The trilogy is able to provide a target tidal volume and also adjusting the EPAP pressures to maintain a patent airway as well as an oral backup rate this machine will help improve PaCO2 levels. The severity of the patient's condition will lead to future hospitalizations and readmissions as well as life-threatening situations without the use of this device trilogy home vent needed for hypercapnic respiratory failure. Family medical to follow for trilogy set up. (4) Acute and chronic respiratory failure with hypercapnia Is this a current diagnosis for this admission?: Yes (5) Obstructive sleep apnea Is this a current diagnosis for this admission?: Yes (6) Tobacco dependency Is this a current diagnosis for this admission?: Yes
--- NOTE | 2016-12-11 10:33 | PDOC PROGRESS REPORT ---
Subjective Progress Note for:: 12/10/16 Subjective:: on BiPAP comfortable Physical Exam Vital Signs: Temp Pulse Resp BP Pulse Ox 98.6 F 73 20 123/62 91 L 12/11/16 07:06 12/11/16 07:53 12/11/16 07:53 12/11/16 07:06 12/11/16 07:53 Intake & Output 12/10/16 12/11/16 12/12/16 06:59 06:59 06:59 Intake Total 964 532 Output Total 1400 1300 Balance -436 -768 Weight 122 kg 121.8 kg General appearance: PRESENT: cooperative, disheveled, morbidly obese, well- developed Head exam: PRESENT: atraumatic, normocephalic Eye exam: PRESENT: conjunctiva pale, EOMI Mouth exam: PRESENT: dry mucosa, neck supple, tongue midline Neck exam: ABSENT: carotid bruit, JVD, lymphadenopathy, thyromegaly Respiratory exam: PRESENT: decreased breath sounds, prolonged expiratory phas, rhonchi, symmetrical, unlabored, wheezes Cardiovascular exam: PRESENT: irregular rhythm Pulses: PRESENT: normal radial pulses GI/Abdominal exam: PRESENT: normal bowel sounds, soft. ABSENT: distended, guarding, mass, organolmegaly, rebound, tenderness Rectal exam: PRESENT: deferred Gentrourinary exam: PRESENT: indwelling catheter Extremities exam: PRESENT: +1 edema Neurological exam: PRESENT: alert, awake Psychiatric exam: PRESENT: normal mood Skin exam: PRESENT: dry, warm Results Laboratory Results: 12/08/16 05:50 12/09/16 05:13 12/03/16 12/03/16 12/03/16 06:20 06:20 12:02 Creatine Kinase < 20 L < 20 L CK-MB (CK-2) 0.55 Troponin I 0.028 NT-Pro-B Natriuret Pep 12/03/16 12/03/16 12/03/16 12:02 18:20 18:20 Creatine Kinase < 20 L CK-MB (CK-2) 0.47 0.32 Troponin I 0.018 0.016 NT-Pro-B Natriuret Pep 12/04/16 12/09/16 04:31 05:13 Creatine Kinase CK-MB (CK-2) Troponin I NT-Pro-B Natriuret Pep 14872 H 6320 H Impressions: Chest X-Ray 12/06/16 00:00 IMPRESSION: NO CHANGE IN APPEARANCE OF THE CHEST. Assessment & Plan - Diagnosis (1) COPD with acute exacerbation Is this a current diagnosis for this admission?: Yes (2) Hypoxia Is this a current diagnosis for this admission?: No (3) Obesity hypoventilation syndrome Is this a current diagnosis for this admission?: Yes (4) Acute and chronic respiratory failure with hypercapnia Is this a current diagnosis for this admission?: Yes (5) Obstructive sleep apnea Is this a current diagnosis for this admission?: Yes (6) Tobacco dependency Is this a current diagnosis for this admission?: Yes
--- NOTE | 2016-12-11 14:29 | PDOC PROGRESS REPORT ---
Subjective Progress Note for:: 12/11/16 Subjective:: reason for visit: f/u hypoxic resp failure, heart failure, pneumonia hospital course: per other's notes = "MARIANO HENRY is a 71 year old female a past medical history pneumonia, diastolic heart failure, severe pulmonary hypertension, atrial fibrillation, obstructive sleep apnea, morbid obesity, hypoventilation syndrome, venous stasis, deep vein thrombosis, stage III chronic kidney disease, renal insufficiency and recent GI bleed. She was transferred to [facility] and 24 hours ago from [facility] in [facility] on scheduled Xanax. [facility] staff were challenged by hypoxia and difficulty applying BiPAP and subsequently transferred to the emergency room for evaluation where she was found to be obtunded. Her workup reveals a right upper lobe infiltrate, and hypercapnic respiratory failure. She started on empiric BiPAP and referred to the hospitalist for admission. Her CODE STATUS is DNR. She is unable to provide history. 12/05 - She is breathing more easily this morning. Is off of BiPAP for her breakfast and seems to be tolerating a nasal cannula well. 12/06 -She is felt to be in CHF. She is diuresing very slowly. She is improving very slowly. He is still requiring BiPAP most of the day. She wonders if she has pneumonia. He has been afebrile and has had a normal white blood count. 12/07 -she is being treated for CHF. She is also obese with hypoventilation and hypercarbia. She is being treated empirically with antibiotics for pneumonia even though she is afebrile and her white blood count is normal. The chest x- ray does show some airspace disease in the lower lobes. She has diuresed very slowly. She continues to show easy O2 desaturation with minimal exertion. She has required BiPAP on and off." I inherited her care Wednesday and found her sitting upright in bed with the BiPAP off, breathing easily while at rest and sats of 90% on 5L/min via NC. Since that time she continues to require intermittent use of the BPAP for episodic breathlessness, resp fatigue and low sats unfortunately spending more time on than off the BiPAP. ROS: she still gets severely SOA with even minimal movement, sometimes even at rest; continues to c/o leg weakness but no pain. she denies chest pain, palpitations, cough with phlegm, fever/chills, total 10 systems reviewed, remaining systems negative. Physical Exam Vital Signs: Temp Pulse Resp BP Pulse Ox 98.3 F 65 20 109/83 90 L 12/11/16 11:53 12/11/16 13:19 12/11/16 11:53 12/11/16 11:53 12/11/16 11:53 Intake & Output 12/10/16 12/11/16 12/12/16 06:59 06:59 06:59 Intake Total 964 532 120 Output Total 1400 1300 200 Balance -436 -768 -80 Weight 122 kg 121.8 kg General appearance: PRESENT: no acute distress, morbidly obese, well-developed, well-nourished Head exam: PRESENT: atraumatic, normocephalic Eye exam: ABSENT: conjunctival injection, scleral icterus Mouth exam: PRESENT: moist, neck supple Neck exam: PRESENT: full ROM. ABSENT: JVD, tenderness Respiratory exam: PRESENT: clear to auscultation flory, prolonged expiratory phas. ABSENT: unlabored Cardiovascular exam: PRESENT: RRR. ABSENT: systolic murmur Pulses: PRESENT: normal radial pulses, normal dorsalis pedis pul GI/Abdominal exam: PRESENT: normal bowel sounds, soft. ABSENT: tenderness Neurological exam: PRESENT: alert, awake, oriented to person, oriented to place , oriented to time, oriented to situation Psychiatric exam: PRESENT: appropriate affect, normal mood Skin exam: PRESENT: warm. ABSENT: dry Results Laboratory Results: 12/08/16 05:50 12/09/16 05:13 12/03/16 12/03/16 12/03/16 06:20 06:20 12:02 Creatine Kinase < 20 L < 20 L CK-MB (CK-2) 0.55 Troponin I 0.028 NT-Pro-B Natriuret Pep 12/03/16 12/03/16 12/03/16 12:02 18:20 18:20 Creatine Kinase < 20 L CK-MB (CK-2) 0.47 0.32 Troponin I 0.018 0.016 NT-Pro-B Natriuret Pep 12/04/16 12/09/16 04:31 05:13 Creatine Kinase CK-MB (CK-2) Troponin I NT-Pro-B Natriuret Pep 95196 H 6320 H Impressions: Chest X-Ray 12/06/16 00:00 IMPRESSION: NO CHANGE IN APPEARANCE OF THE CHEST. Assessment & Plan - Diagnosis (1) Acute and chronic respiratory failure ([id number]) Qualifiers: Respiratory failure complication: hypoxia and hypercapnia Qualified Code(s): J96.21 - Acute and chronic respiratory failure with hypoxia Is this a current diagnosis for this admission?: YesPlan: improved but not back to baseline. continue effort to increase activity and lessen time spent on NiPPV (BiPAP) but after discussing with dr irby it seems clear she has reached a point in her care where she is BiPAP dependent and would benefit from Trilogy. Nadia is working to find placement in rehab that understands and willing to use this device. continue supplemental O2 but keep her sats 88-92% only. (2) CHF (congestive heart failure) Qualifiers: Congestive heart failure type: diastolic Congestive heart failure chronicity: acute on chronic Qualified Code(s): I50.33 - Acute on chronic diastolic (congestive) heart failure Is this a current diagnosis for this admission?: YesPlan: slowly improving (3) Chronic kidney disease (CKD) stage G3a/A1, moderately decreased glomerular filtration rate (GFR) between 45-59 mL/min/1.73 square meter and albuminuria creatinine ratio less than 30 mg/g Is this a current diagnosis for this admission?: Yes (4) DNR (do not resuscitate) Is this a current diagnosis for this admission?: Yes (5) Obesity hypoventilation syndrome Is this a current diagnosis for this admission?: Yes (6) Pneumonia Qualifiers: Pneumonia type: due to unspecified organism Lung location: unspecified part of lung Is this a current diagnosis for this admission?: Yes - Time Time Spent with patient: 25-34 minutes Anticipated discharge: SNF Within: within 24 hours - Plan Summary Plan Summary: stable for d/c when placement arranged
--- NOTE | 2016-12-11 19:18 | PROGRESS NOTE E ---
Progress Note NAME: MARIANO HENRY : 1945 AGE: 71Y DATE: 12/11/2016 ROOM: 325 SUBJECTIVE: The patient denies any chest pain or discomfort. She is on BiPAP but breathing easily. She says her shortness of breath is back to baseline. There is no PND or orthopnea. There is no chest pain. She is in chronic atrial fibrillation with controlled ventricular response. There are no TIA or CVA symptoms. There is chronic lymphedema of the lower extremities with venous stasis dermatitis. OBJECTIVE: GENERAL: On examination, the patient is morbidly obese at present on the BiPAP but in no acute distress. VITAL SIGNS: She is afebrile with a temperature of 98.3 degrees Fahrenheit. Pulse is 76 beats per minute. Blood pressure 109/83. Respirations are 20 per minute. O2 saturations are 90% on 6 L nasal cannula. At present the patient is on BiPAP. HEENT: Head is atraumatic, normocephalic. Eyes: Pupils are equal, round, regular, reactive to light and accommodation. Extraocular movements are normal. There is mild conjunctival pallor. There is no scleral icterus. ENT is negative. NECK: Supple. There is no JVD. Carotids are equal. There is no bruit. There is no goiter. There is no lymphadenopathy. Trachea is central. LUNGS: Show diminished air entry and prolonged expiration on auscultation. On percussion, there is hyperresonance. There is no dullness, rhonchi, rales, or wheezing. CARDIOVASCULAR: S1, S2 are heard. S1 is of variable intensity. There is no S3 gallop. There is no S4 gallop. There is systolic murmur at the left sternal border and the apex. There is no rub. ABDOMEN: Soft, nontender. There is no hepatosplenomegaly. Her abdomen is obese. Bowel sounds are well heard. CENTRAL NERVOUS SYSTEM: The patient is conscious, awake, alert, oriented times 3 with no focal deficit. PSYCHIATRIC: The patient's judgment and insight are intact. Her affect is normal. The patient's 24-hour intake is 532 mL; output is 1300 mL. ASSESSMENT: 1. CONGESTIVE HEART FAILURE. This seems to be acute on chronic diastolic-type of heart failure and secondary to volume overload due to patient's acute on chronic kidney disease. At present, GFR is back to normal, and the patient's CHF is compensated. 2. COPD. At present no acute exacerbation, back to baseline, but patient continues to have hypercarbia that is retention of CO2 in spite of her positive pressure ventilation. 3. BIBASILAR INFILTRATES MOST LIKELY SECONDARY TO PNEUMONIA. It seems to be resolved. 4. OBESITY HYPOVENTILATION SYNDROME. 5. ANEMIA ASSOCIATED WITH ACUTE BLOOD LOSS RECENTLY DUE TO GI BLEED. 6. OBSTRUCTIVE SLEEP APNEA. Continue CPAP when the patient is sleeping. 7. CHRONIC ATRIAL FIBRILLATION WITH CONTROLLED VENTRICULAR RESPONSE. Continue atenolol. 8. THROMBOCYTOPENIA. There is petechiae, ecchymosis, or any evidence of bleeding. 9. PULMONARY HYPERTENSION. Continue sildenafil. 10. TOBACCO ABUSE DISORDER. The patient is on Nicoderm patch. 11. HYPOTHYROIDISM. Continue replacement. 12. HISTORY OF HYPERTENSION BUT SUBSEQUENTLY THE PATIENT HAS BEEN HYPOTENSIVE. The patient's blood pressure is low normal on midodrine. Continue midodrine. RECOMMENDATIONS: Continue current medications. Would recommend a short course of antibiotics. Note that the patient is going to be discharged to a chcf facility within the next 24 hours. Note: 25 minutes was spent on this patient with more than 50% of the time spent in direct patient care and also review of the patient's medications and discussions involving a management plan with other caregiving providers on the case. The plan is to transfer to a chcf facility as soon as placement bed is available. Hence, will sign off the case. Discussed with the patient. The patient desires to follow up in my office. She can do that later from the halfway. DICTATING PHYSICIAN: THOMAS BLANCA M.D. [id number] PHY#: [id number] ID: [id number] JOB#: [id number] ACCT: [id number] cc: >
[2016-12-11] MEDS: ATORVASTATIN CALCIUM 40 MG TABLET PO SCH (21:42)
[2016-12-12] MEDS: IPRATROPIUM/ALBUTEROL 0.5-2.5 MG/3 ML AMPUL NEB SCH ×6 (00:11→20:26)
[2016-12-12] MEDS: LEVOTHYROXINE SODIUM 0.15 MG TABLET PO SCH (05:47)
[2016-12-12] MEDS: HEPARIN SOD (PORCINE) 5,000 UNIT/ML 1 ML SYRINGE SUBCUT SCH ×3 (05:47→21:49)
[2016-12-12] MEDS: GUAIFENESIN 600 MG TABLET.SA PO SCH ×2 (08:54→21:49)
[2016-12-12] MEDS: DOCUSATE SODIUM 100 MG CAPSULE PO SCH ×2 (08:54→17:02)
[2016-12-12] MEDS: GABAPENTIN 300 MG CAPSULE PO SCH ×2 (08:54→21:49)
[2016-12-12] MEDS: BUMETANIDE 1 MG TABLET PO SCH (08:55)
[2016-12-12] MEDS: SILDENAFIL CITRATE 20 MG TABLET PO SCH ×3 (08:56→17:02)
[2016-12-12] MEDS: SPIRONOLACTONE 25 MG TABLET PO SCH (08:56)
[2016-12-12] MEDS: THIAMINE HCL 100 MG TABLET PO SCH (08:56)
[2016-12-12] MEDS: MIDODRINE HCL 5 MG TABLET PO SCH ×3 (09:30→17:02)
--- NOTE | 2016-12-12 13:55 | PDOC PROGRESS REPORT ---
Subjective Progress Note for:: 12/12/16 Subjective:: reason for visit: f/u hypoxic resp failure, heart failure, pneumonia hospital course: per other's notes = "MARIANO HENRY is a 71 year old female a past medical history pneumonia, diastolic heart failure, severe pulmonary hypertension, atrial fibrillation, obstructive sleep apnea, morbid obesity, hypoventilation syndrome, venous stasis, deep vein thrombosis, stage III chronic kidney disease, renal insufficiency and recent GI bleed. She was transferred to [facility] and 24 hours ago from [facility] in [facility] on scheduled Xanax. half-way staff were challenged by hypoxia and difficulty applying BiPAP and subsequently transferred to the emergency room for evaluation where she was found to be obtunded. Her workup reveals a right upper lobe infiltrate, and hypercapnic respiratory failure. She started on empiric BiPAP and referred to the hospitalist for admission. Her CODE STATUS is DNR. She is unable to provide history. 12/05 - She is breathing more easily this morning. Is off of BiPAP for her breakfast and seems to be tolerating a nasal cannula well. 12/06 -She is felt to be in CHF. She is diuresing very slowly. She is improving very slowly. He is still requiring BiPAP most of the day. She wonders if she has pneumonia. He has been afebrile and has had a normal white blood count. 12/07 -she is being treated for CHF. She is also obese with hypoventilation and hypercarbia. She is being treated empirically with antibiotics for pneumonia even though she is afebrile and her white blood count is normal. The chest x- ray does show some airspace disease in the lower lobes. She has diuresed very slowly. She continues to show easy O2 desaturation with minimal exertion. She has required BiPAP on and off." I inherited her care Wednesday and found her sitting upright in bed with the BiPAP off, breathing easily while at rest and sats of 90% on 5L/min via NC. Since that time she continues to require intermittent use of the BPAP for episodic breathlessness, resp fatigue and low sats unfortunately spending more time on than off the BiPAP. ROS: she still gets severely SOA with even minimal movement, sometimes even at rest, very anxious; continues to c/o leg weakness but no pain. she denies chest pain, palpitations, cough with phlegm, fever/chills, total 10 systems reviewed, remaining systems negative. Physical Exam Vital Signs: Temp Pulse Resp BP Pulse Ox 98.6 F 72 16 129/64 H 94 12/12/16 11:26 12/12/16 13:50 12/12/16 11:26 12/12/16 11:26 12/12/16 11:26 Intake & Output 12/11/16 12/12/16 12/13/16 06:59 06:59 06:59 Intake Total 532 830 Output Total 1300 700 Balance -768 130 Weight 121.8 kg 121.9 kg General appearance: PRESENT: mild distress, morbidly obese, well-developed, well -nourished Head exam: PRESENT: atraumatic, normocephalic Eye exam: ABSENT: conjunctival injection, scleral icterus Mouth exam: PRESENT: dry mucosa, neck supple Respiratory exam: PRESENT: accessory muscle use, clear to auscultation flory. ABSENT: rhonchi, wheezes Cardiovascular exam: PRESENT: RRR. ABSENT: systolic murmur Pulses: PRESENT: normal radial pulses, normal dorsalis pedis pul GI/Abdominal exam: PRESENT: normal bowel sounds, soft. ABSENT: tenderness Extremities exam: PRESENT: pedal edema. ABSENT: calf tenderness Neurological exam: PRESENT: alert, awake, oriented to person, oriented to place , oriented to time, oriented to situation Psychiatric exam: PRESENT: anxious, normal mood Focused psych exam: ABSENT: pressured speech, psychomotor agitation Skin exam: PRESENT: warm, other - acrocyanotic chronic changes to bilat pretibia Results Laboratory Results: 12/08/16 05:50 12/09/16 05:13 12/03/16 12/03/16 12/03/16 06:20 06:20 12:02 Creatine Kinase < 20 L < 20 L CK-MB (CK-2) 0.55 Troponin I 0.028 NT-Pro-B Natriuret Pep 12/03/16 12/03/16 12/03/16 12:02 18:20 18:20 Creatine Kinase < 20 L CK-MB (CK-2) 0.47 0.32 Troponin I 0.018 0.016 NT-Pro-B Natriuret Pep 12/04/16 12/09/16 04:31 05:13 Creatine Kinase CK-MB (CK-2) Troponin I NT-Pro-B Natriuret Pep 39244 H 6320 H Impressions: Chest X-Ray 12/06/16 00:00 IMPRESSION: NO CHANGE IN APPEARANCE OF THE CHEST. Assessment & Plan - Diagnosis (1) Acute and chronic respiratory failure ([id number]) Qualifiers: Respiratory failure complication: hypoxia and hypercapnia Qualified Code(s): J96.21 - Acute and chronic respiratory failure with hypoxia Is this a current diagnosis for this admission?: Yes (2) CHF (congestive heart failure) Qualifiers: Congestive heart failure type: diastolic Congestive heart failure chronicity: acute on chronic Qualified Code(s): I50.33 - Acute on chronic diastolic (congestive) heart failure Is this a current diagnosis for this admission?: Yes (3) Chronic kidney disease (CKD) stage G3a/A1, moderately decreased glomerular filtration rate (GFR) between 45-59 mL/min/1.73 square meter and albuminuria creatinine ratio less than 30 mg/g Is this a current diagnosis for this admission?: Yes (4) DNR (do not resuscitate) Is this a current diagnosis for this admission?: Yes (5) Obesity hypoventilation syndrome Is this a current diagnosis for this admission?: Yes (6) Pneumonia Qualifiers: Pneumonia type: due to unspecified organism Lung location: unspecified part of lung Is this a current diagnosis for this admission?: Yes - Time Time Spent with patient: 15-24 minutes - Plan Summary Plan Summary: awaiting placement
[2016-12-12] MEDS: ATORVASTATIN CALCIUM 40 MG TABLET PO SCH (21:49)
[2016-12-13] MEDS: IPRATROPIUM/ALBUTEROL 0.5-2.5 MG/3 ML AMPUL NEB SCH ×7 (00:01→23:27)
[2016-12-13] MEDS: LEVOTHYROXINE SODIUM 0.15 MG TABLET PO SCH (05:19)
[2016-12-13] MEDS: HEPARIN SOD (PORCINE) 5,000 UNIT/ML 1 ML SYRINGE SUBCUT SCH ×3 (05:19→21:22)
[2016-12-13] MEDS: ACETAMINOPHEN 325 MG TABLET PO PRN ×2 (06:22→16:36)
[2016-12-13] MEDS: SPIRONOLACTONE 25 MG TABLET PO SCH (09:33)
[2016-12-13] MEDS: MIDODRINE HCL 5 MG TABLET PO SCH ×3 (09:34→18:52)
[2016-12-13] MEDS: THIAMINE HCL 100 MG TABLET PO SCH (09:34)
[2016-12-13] MEDS: GABAPENTIN 300 MG CAPSULE PO SCH ×2 (09:35→21:22)
[2016-12-13] MEDS: GUAIFENESIN 600 MG TABLET.SA PO SCH ×2 (09:35→21:22)
[2016-12-13] MEDS: DOCUSATE SODIUM 100 MG CAPSULE PO SCH ×2 (09:35→18:52)
[2016-12-13] MEDS: BUMETANIDE 1 MG TABLET PO SCH (09:36)
[2016-12-13] MEDS: SILDENAFIL CITRATE 20 MG TABLET PO SCH ×3 (09:37→16:36)
--- NOTE | 2016-12-13 11:46 | PDOC PROGRESS REPORT ---
Subjective Progress Note for:: 12/13/16 Subjective:: reason for visit: f/u hypoxic resp failure, heart failure, pneumonia hospital course: per other's notes = "MARIANO HENRY is a 71 year old female a past medical history pneumonia, diastolic heart failure, severe pulmonary hypertension, atrial fibrillation, obstructive sleep apnea, morbid obesity, hypoventilation syndrome, venous stasis, deep vein thrombosis, stage III chronic kidney disease, renal insufficiency and recent GI bleed. She was transferred to [facility] and 24 hours ago from [facility] in [facility] on scheduled Xanax. halfway staff were challenged by hypoxia and difficulty applying BiPAP and subsequently transferred to the emergency room for evaluation where she was found to be obtunded. Her workup reveals a right upper lobe infiltrate, and hypercapnic respiratory failure. She started on empiric BiPAP and referred to the hospitalist for admission. Her CODE STATUS is DNR. She is unable to provide history. 12/05 - She is breathing more easily this morning. Is off of BiPAP for her breakfast and seems to be tolerating a nasal cannula well. 12/06 -She is felt to be in CHF. She is diuresing very slowly. She is improving very slowly. He is still requiring BiPAP most of the day. She wonders if she has pneumonia. He has been afebrile and has had a normal white blood count. 12/07 -she is being treated for CHF. She is also obese with hypoventilation and hypercarbia. She is being treated empirically with antibiotics for pneumonia even though she is afebrile and her white blood count is normal. The chest x- ray does show some airspace disease in the lower lobes. She has diuresed very slowly. She continues to show easy O2 desaturation with minimal exertion. She has required BiPAP on and off." I inherited her care Wednesday and found her sitting upright in bed with the BiPAP off, breathing easily while at rest and sats of 90% on 5L/min via NC. Since that time she continues to require intermittent use of the BPAP for episodic breathlessness, resp fatigue and low sats unfortunately spending more time on than off the BiPAP. no change in her condition, she is high maintenance with the nursing staff and spends most of her day on the BiPAP as she fatigues easily and feels breathless with drop in her O2 sats. ROS: she still gets severely SOA with even minimal movement, sometimes even at rest, very anxious. she denies chest pain, palpitations, cough with phlegm, fever/chills, total 10 systems reviewed, remaining systems negative. Physical Exam Vital Signs: Temp Pulse Resp BP Pulse Ox 98.5 F 74 19 120/59 L 96 12/13/16 07:12 12/13/16 08:27 12/13/16 08:27 12/13/16 07:12 12/13/16 07:12 Intake & Output 12/12/16 12/13/16 12/14/16 06:59 06:59 06:59 Intake Total 830 400 Output Total 700 1000 Balance 130 -600 Weight 121.9 kg 121.1 kg General appearance: PRESENT: morbidly obese, well-developed, well-nourished. ABSENT: no acute distress Head exam: PRESENT: atraumatic, normocephalic Eye exam: ABSENT: conjunctival injection, scleral icterus Neck exam: ABSENT: tracheal deviation Respiratory exam: PRESENT: clear to auscultation flory, decreased breath sounds. ABSENT: accessory muscle use, unlabored Cardiovascular exam: PRESENT: RRR. ABSENT: systolic murmur Pulses: PRESENT: normal radial pulses GI/Abdominal exam: PRESENT: hypoactive bowel sounds, soft. ABSENT: tenderness Extremities exam: PRESENT: pedal edema. ABSENT: calf tenderness Musculoskeletal exam: PRESENT: full ROM - though remains weak, 4/5 at best Neurological exam: PRESENT: oriented to person, oriented to place, oriented to time, oriented to situation Psychiatric exam: PRESENT: appropriate affect, normal mood Skin exam: PRESENT: rash - chronic acrocyanotic chronic changes to bilat pretibia as before, warm Assessment & Plan - Diagnosis (1) Acute and chronic respiratory failure ([id number]) Qualifiers: Respiratory failure complication: hypoxia and hypercapnia Qualified Code(s): J96.21 - Acute and chronic respiratory failure with hypoxia Is this a current diagnosis for this admission?: Yes (2) CHF (congestive heart failure) Qualifiers: Congestive heart failure type: diastolic Congestive heart failure chronicity: acute on chronic Qualified Code(s): I50.33 - Acute on chronic diastolic (congestive) heart failure Is this a current diagnosis for this admission?: Yes (3) Chronic kidney disease (CKD) stage G3a/A1, moderately decreased glomerular filtration rate (GFR) between 45-59 mL/min/1.73 square meter and albuminuria creatinine ratio less than 30 mg/g Is this a current diagnosis for this admission?: Yes (4) DNR (do not resuscitate) Is this a current diagnosis for this admission?: Yes (5) Obesity hypoventilation syndrome Is this a current diagnosis for this admission?: Yes (6) Pneumonia Qualifiers: Pneumonia type: due to unspecified organism Lung location: unspecified part of lung Is this a current diagnosis for this admission?: Yes - Time Time Spent with patient: 15-24 minutes - Plan Summary Plan Summary: no change, awaiting placement and Trilogy machine; continue supportive care.
[2016-12-13] MEDS: ATORVASTATIN CALCIUM 40 MG TABLET PO SCH (21:22)
[2016-12-14] MEDS: IPRATROPIUM/ALBUTEROL 0.5-2.5 MG/3 ML AMPUL NEB SCH ×6 (04:10→23:31)
[2016-12-14] MEDS: LEVOTHYROXINE SODIUM 0.15 MG TABLET PO SCH (05:28)
[2016-12-14] MEDS: HEPARIN SOD (PORCINE) 5,000 UNIT/ML 1 ML SYRINGE SUBCUT SCH ×3 (05:28→21:26)
[2016-12-14] MEDS: MIDODRINE HCL 5 MG TABLET PO SCH ×3 (10:56→18:00)
[2016-12-14] MEDS: GUAIFENESIN 600 MG TABLET.SA PO SCH ×2 (10:56→21:26)
[2016-12-14] MEDS: SILDENAFIL CITRATE 20 MG TABLET PO SCH ×3 (10:56→18:20)
[2016-12-14] MEDS: BUMETANIDE 1 MG TABLET PO SCH (10:57)
[2016-12-14] MEDS: THIAMINE HCL 100 MG TABLET PO SCH (10:57)
[2016-12-14] MEDS: GABAPENTIN 300 MG CAPSULE PO SCH ×2 (10:57→21:26)
[2016-12-14] MEDS: SPIRONOLACTONE 25 MG TABLET PO SCH (10:57)
[2016-12-14] MEDS: DOCUSATE SODIUM 100 MG CAPSULE PO SCH ×2 (10:58→17:18)
--- NOTE | 2016-12-14 13:54 | PDOC PROGRESS REPORT ---
Subjective Progress Note for:: 12/14/16 Subjective:: reason for visit: f/u hypoxic resp failure, heart failure, pneumonia hospital course: per other's notes = "MARIANO HENRY is a 71 year old female a past medical history pneumonia, diastolic heart failure, severe pulmonary hypertension, atrial fibrillation, obstructive sleep apnea, morbid obesity, hypoventilation syndrome, venous stasis, deep vein thrombosis, stage III chronic kidney disease, renal insufficiency and recent GI bleed. She was transferred to [facility] and 24 hours ago from [facility] in [facility] on scheduled Xanax. [facility] staff were challenged by hypoxia and difficulty applying BiPAP and subsequently transferred to the emergency room for evaluation where she was found to be obtunded. Her workup reveals a right upper lobe infiltrate, and hypercapnic respiratory failure. She started on empiric BiPAP and referred to the hospitalist for admission. Her CODE STATUS is DNR. She is unable to provide history. 12/05 - She is breathing more easily this morning. Is off of BiPAP for her breakfast and seems to be tolerating a nasal cannula well. 12/06 -She is felt to be in CHF. She is diuresing very slowly. She is improving very slowly. He is still requiring BiPAP most of the day. She wonders if she has pneumonia. He has been afebrile and has had a normal white blood count. 12/07 -she is being treated for CHF. She is also obese with hypoventilation and hypercarbia. She is being treated empirically with antibiotics for pneumonia even though she is afebrile and her white blood count is normal. The chest x- ray does show some airspace disease in the lower lobes. She has diuresed very slowly. She continues to show easy O2 desaturation with minimal exertion. She has required BiPAP on and off." I inherited her care Wednesday and found her sitting upright in bed with the BiPAP off, breathing easily while at rest and sats of 90% on 5L/min via NC. Since that time she continues to require intermittent use of the BPAP for episodic breathlessness, resp fatigue and low sats unfortunately spending more time on than off the BiPAP. no change in her condition, she is high maintenance with the nursing staff and spends most of her day on the BiPAP as she fatigues easily and feels breathless with drop in her O2 sats. ROS: she still gets severely SOA with even minimal movement, sometimes even at rest, very anxious. she denies chest pain, palpitations, cough with phlegm, fever/chills, total 10 systems reviewed, remaining systems negative. Physical Exam Vital Signs: Temp Pulse Resp BP Pulse Ox 98.3 F 72 19 142/78 H 97 12/14/16 11:33 12/14/16 11:33 12/14/16 11:33 12/14/16 11:33 12/14/16 11:33 Intake & Output 12/13/16 12/14/16 12/15/16 06:59 06:59 06:59 Intake Total 400 1150 75 Output Total 1000 1250 200 Balance -600 -100 -125 Weight 121.1 kg 122 kg General appearance: PRESENT: no acute distress, morbidly obese, well-developed, well-nourished Head exam: PRESENT: atraumatic, normocephalic Eye exam: PRESENT: EOMI. ABSENT: conjunctival injection, scleral icterus Mouth exam: PRESENT: neck supple, tongue midline Neck exam: PRESENT: full ROM. ABSENT: tracheal deviation Respiratory exam: PRESENT: clear to auscultation flory, unlabored. ABSENT: accessory muscle use Cardiovascular exam: PRESENT: RRR. ABSENT: systolic murmur Pulses: PRESENT: normal radial pulses, +1 pedal pulses bilateral GI/Abdominal exam: PRESENT: normal bowel sounds, soft. ABSENT: tenderness Gentrourinary exam: PRESENT: indwelling catheter Musculoskeletal exam: PRESENT: full ROM - still very weak in her legs, 4/5 at best Neurological exam: PRESENT: alert, awake, oriented to person, oriented to place , oriented to time, oriented to situation Psychiatric exam: PRESENT: appropriate affect, normal mood Focused psych exam: ABSENT: paranoid, psychomotor agitation Skin exam: PRESENT: rash - chronic acrocyanotic chronic changes to bilat pretibia as before, warm, warm Assessment & Plan - Diagnosis (1) Acute and chronic respiratory failure ([id number]) Qualifiers: Respiratory failure complication: hypoxia and hypercapnia Qualified Code(s): J96.21 - Acute and chronic respiratory failure with hypoxia Is this a current diagnosis for this admission?: YesPlan: improved but not back to baseline. continue effort to increase activity and lessen time spent on NiPPV (BiPAP) but after discussing with dr irby it seems clear she has reached a point in her care where she is BiPAP dependent and would benefit from Trilogy. health careers instructor is working to find placement in rehab that understands and willing to use this device. continue supplemental O2 but keep her sats 88-92% only. (2) CHF (congestive heart failure) Qualifiers: Congestive heart failure type: diastolic Congestive heart failure chronicity: acute on chronic Qualified Code(s): I50.33 - Acute on chronic diastolic (congestive) heart failure Is this a current diagnosis for this admission?: YesPlan: slowly improving. Insists on maintaining thompson catheter due to severe breathlessness with toileting (3) Chronic kidney disease (CKD) stage G3a/A1, moderately decreased glomerular filtration rate (GFR) between 45-59 mL/min/1.73 square meter and albuminuria creatinine ratio less than 30 mg/g Is this a current diagnosis for this admission?: YesPlan: stable in spite of diuresis which is encouraging. continue to monitor, f/u BMP in am (4) DNR (do not resuscitate) Is this a current diagnosis for this admission?: Yes (5) Obesity hypoventilation syndrome Is this a current diagnosis for this admission?: Yes (6) Pneumonia Qualifiers: Pneumonia type: due to unspecified organism Lung location: unspecified part of lung Is this a current diagnosis for this admission?: YesPlan: mild improved. continue empiric abx, consider very short course as she doesn't have leukocytosis, fever and abnl's seen on imaging might be explained by heart failure; hard stop was 6/2 or 9d total which should be adequate. f/u CBC in am - Time Time Spent with patient: 15-24 minutes - Plan Summary Plan Summary: no change, awaiting placement and Trilogy machine; continue supportive care. she belongs to dr fernández and can go back to him in the morning
[2016-12-14] MEDS: IPRATROPIUM/ALBUTEROL 0.5-2.5 MG/3 ML AMPUL NEB PRN (16:27)
[2016-12-14] MEDS: ATORVASTATIN CALCIUM 40 MG TABLET PO SCH (21:26)
[2016-12-15] MEDS: IPRATROPIUM/ALBUTEROL 0.5-2.5 MG/3 ML AMPUL NEB SCH ×5 (03:44→20:50)
[2016-12-15] MEDS: LEVOTHYROXINE SODIUM 0.15 MG TABLET PO SCH (05:32)
[2016-12-15] MEDS: HEPARIN SOD (PORCINE) 5,000 UNIT/ML 1 ML SYRINGE SUBCUT SCH ×3 (05:32→22:05)
[2016-12-15 05:49] LABS: HEMATOCRIT 29.6 % (36.0-47.0); HEMOGLOBIN 9.4 g/dL (12.0-15.5); HGB HCT DIFFERENCE -1.4; MEAN CORPUSCULAR HEMOGLOBIN 30.4 pg (27.0-33.4); MEAN CORPUSCULAR HGB CONC 31.9 g/dL (32.0-36.0); MEAN CORPUSCULAR VOLUME 95 fl (80-97); RED BLOOD COUNT 3.11 10^6/uL (3.72-5.28); RED CELL DISTRIBUTION WIDTH 18.2 % (11.5-14.0); WHITE BLOOD COUNT 8.4 10^3/uL (4.0-10.5)
[2016-12-15 06:08] LABS: ANION GAP 11 (5-19); BLOOD UREA NITROGEN 20 mg/dL (7-20); CALCIUM 8.8 mg/dL (8.4-10.2); CARBON DIOXIDE 36 mmol/L (22-30); CHLORIDE 94 mmol/L (98-107); CREATININE RESULT 1.05 mg/dL (0.52-1.25); GLUCOSE 84 mg/dL (75-110); POTASSIUM 3.7 mmol/L (3.6-5.0); SODIUM 140.9 mmol/L (137-145)
[2016-12-15] MEDS: SILDENAFIL CITRATE 20 MG TABLET PO SCH ×3 (07:51→16:55)
[2016-12-15] MEDS: MIDODRINE HCL 5 MG TABLET PO SCH ×3 (10:02→16:56)
[2016-12-15] MEDS: THIAMINE HCL 100 MG TABLET PO SCH (10:02)
[2016-12-15] MEDS: GUAIFENESIN 600 MG TABLET.SA PO SCH ×2 (10:02→22:04)
[2016-12-15] MEDS: DOCUSATE SODIUM 100 MG CAPSULE PO SCH ×2 (10:03→16:56)
[2016-12-15] MEDS: GABAPENTIN 300 MG CAPSULE PO SCH ×2 (10:03→22:04)
[2016-12-15] MEDS: SPIRONOLACTONE 25 MG TABLET PO SCH (10:04)
--- NOTE | 2016-12-15 12:47 | PDOC PROGRESS REPORT ---
Subjective Progress Note for:: 12/14/16 Subjective:: on BiPAP Remains NIPPV dependent Physical Exam Vital Signs: Temp Pulse Resp BP Pulse Ox 98.8 F 67 19 110/50 L 93 12/15/16 07:26 12/15/16 07:26 12/15/16 07:26 12/15/16 07:26 12/15/16 07:26 Intake & Output 12/14/16 12/15/16 12/16/16 06:59 06:59 06:59 Intake Total 1150 275 Output Total 1250 1100 Balance -100 -825 Weight 122 kg 119.7 kg General appearance: PRESENT: no acute distress, disheveled, morbidly obese, well -developed Head exam: PRESENT: atraumatic, normocephalic Eye exam: PRESENT: conjunctiva pale, EOMI Mouth exam: PRESENT: neck supple Neck exam: ABSENT: carotid bruit, JVD, lymphadenopathy, thyromegaly Respiratory exam: PRESENT: decreased breath sounds, prolonged expiratory phas, rhonchi, symmetrical Cardiovascular exam: PRESENT: RRR, +S1, +S2 Pulses: PRESENT: normal radial pulses GI/Abdominal exam: PRESENT: normal bowel sounds, soft. ABSENT: distended, guarding, mass, organolmegaly, rebound, tenderness Rectal exam: PRESENT: deferred Gentrourinary exam: PRESENT: indwelling catheter Extremities exam: PRESENT: +1 edema Neurological exam: PRESENT: alert, awake Psychiatric exam: PRESENT: normal mood Skin exam: PRESENT: dry, warm Results Laboratory Results: 12/15/16 05:09 12/15/16 05:09 12/15/16 12/15/16 05:09 05:09 WBC 8.4 RBC 3.11 L Hgb 9.4 L Hct 29.6 L MCV 95 MCH 30.4 MCHC 31.9 L RDW 18.2 H Plt Count 238 Sodium 140.9 Potassium 3.7 Chloride 94 L Carbon Dioxide 36 H Anion Gap 11 BUN 20 Creatinine 1.05 Est GFR ( Amer) > 60 Est GFR (Non-Af Amer) 52 L Glucose 84 Calcium 8.8 12/03/16 12/03/16 12/03/16 06:20 06:20 12:02 Creatine Kinase < 20 L < 20 L CK-MB (CK-2) 0.55 Troponin I 0.028 NT-Pro-B Natriuret Pep 12/03/16 12/03/16 12/03/16 12:02 18:20 18:20 Creatine Kinase < 20 L CK-MB (CK-2) 0.47 0.32 Troponin I 0.018 0.016 NT-Pro-B Natriuret Pep 12/04/16 12/09/16 04:31 05:13 Creatine Kinase CK-MB (CK-2) Troponin I NT-Pro-B Natriuret Pep 40914 H 6320 H Impressions: Chest X-Ray 12/06/16 00:00 IMPRESSION: NO CHANGE IN APPEARANCE OF THE CHEST. Assessment & Plan - Diagnosis (1) COPD with acute exacerbation Is this a current diagnosis for this admission?: YesPlan: Continue current bronchodilator therapy (2) Hypoxia Is this a current diagnosis for this admission?: Yes (3) Obesity hypoventilation syndrome Is this a current diagnosis for this admission?: Yes (4) Acute and chronic respiratory failure with hypercapnia Is this a current diagnosis for this admission?: YesPlan: Acute on chronic has not yet returned to baseline (5) Obstructive sleep apnea Is this a current diagnosis for this admission?: YesPlan: Additional reason to use noninvasive positive pressure ventilation (6) Tobacco dependency Is this a current diagnosis for this admission?: YesPlan: Consider Chantix
[2016-12-15] MEDS: BUMETANIDE 1 MG TABLET PO SCH (14:10)
--- NOTE | 2016-12-15 17:45 | PDOC PROGRESS REPORT ---
Subjective Progress Note for:: 12/15/16 Subjective:: This is a follow-up visit for respiratory failure. Patient was seen earlier this morning. The first thing she asked is if she will see her primary care physician who usually takes care of her. She Denies any current pain and feels that her breathing is doing well as long as she has the bilevel Pap on. She takes it off to eat but only lasts about 10 min. She asks if her PCP is back from vacation and if he will come to see her since she saw him walking in the halls Physical Exam Vital Signs: Temp Pulse Resp BP Pulse Ox 100.3 F 33 L 19 92/78 L 92 12/15/16 12:29 12/15/16 12:29 12/15/16 12:29 12/15/16 12:29 12/15/16 12:29 Intake & Output 12/14/16 12/15/16 12/16/16 06:59 06:59 06:59 Intake Total 1150 275 200 Output Total 1250 1100 100 Balance -100 -825 100 Weight 122 kg 119.7 kg Physical exam: General: This is a well-developed well-nourished obese white female resting in bed on bilevel Pap in no acute distress Heart: RRR no murmurs, gallops or rubs. Lungs: difficult to appreciate due to bipap noise, but sounds relatively clear anteriorly Abdomen: Soft, non-tender, non-distended, obese Extremities: 1+ edema at ankles. no clubbing or cyanosis. Sebastian hose in place Neuro: Awake and alert. cranial nerves are grossly in tact. Results Laboratory Results: 12/15/16 05:09 12/15/16 05:09 12/15/16 12/15/16 05:09 05:09 WBC 8.4 RBC 3.11 L Hgb 9.4 L Hct 29.6 L MCV 95 MCH 30.4 MCHC 31.9 L RDW 18.2 H Plt Count 238 Sodium 140.9 Potassium 3.7 Chloride 94 L Carbon Dioxide 36 H Anion Gap 11 BUN 20 Creatinine 1.05 Est GFR ( Amer) > 60 Est GFR (Non-Af Amer) 52 L Glucose 84 Calcium 8.8 12/03/16 12/03/16 12/03/16 06:20 06:20 12:02 Creatine Kinase < 20 L < 20 L CK-MB (CK-2) 0.55 Troponin I 0.028 NT-Pro-B Natriuret Pep 12/03/16 12/03/16 12/03/16 12:02 18:20 18:20 Creatine Kinase < 20 L CK-MB (CK-2) 0.47 0.32 Troponin I 0.018 0.016 NT-Pro-B Natriuret Pep 12/04/16 12/09/16 04:31 05:13 Creatine Kinase CK-MB (CK-2) Troponin I NT-Pro-B Natriuret Pep 60146 H 6320 H Impressions: Chest X-Ray 12/06/16 00:00 IMPRESSION: NO CHANGE IN APPEARANCE OF THE CHEST. Assessment & Plan - Diagnosis (1) Acute and chronic respiratory failure with hypercapnia Is this a current diagnosis for this admission?: YesPlan: Continue bilevel Pap. Spoke with pulmonology service, and they strongly recommend trilogy. Unfortunately, facilities in the area will not take the patient with this device. Having her on trilogy would decrease her rate of readmission. If we cannot find a local facility the patient can be discharged on bilevel Pap. If she returned to the hospital in respiratory distress, then we would have to consider pressing forth with trilogy outside of this community versus trach. Will discuss with patient. (2) Obesity hypoventilation syndrome Is this a current diagnosis for this admission?: YesPlan: Plan as per #1 (3) CHF (congestive heart failure) Qualifiers: Congestive heart failure type: diastolic Congestive heart failure chronicity: acute on chronic Qualified Code(s): I50.33 - Acute on chronic diastolic (congestive) heart failure Is this a current diagnosis for this admission?: YesPlan: continue diuresis (4) Pneumonia Qualifiers: Pneumonia type: due to unspecified organism Lung location: unspecified part of lung Is this a current diagnosis for this admission?: Yes - Time Time Spent with patient: 25-34 minutes - Inpatient Certification Medical Necessity: Need Close Monitoring Due to Risk of Patient Decompensation
[2016-12-15] MEDS: ATORVASTATIN CALCIUM 40 MG TABLET PO SCH (22:05)
[2016-12-16] MEDS: IPRATROPIUM/ALBUTEROL 0.5-2.5 MG/3 ML AMPUL NEB SCH ×6 (00:08→20:38)
[2016-12-16] MEDS: LEVOTHYROXINE SODIUM 0.15 MG TABLET PO SCH (05:37)
[2016-12-16] MEDS: HEPARIN SOD (PORCINE) 5,000 UNIT/ML 1 ML SYRINGE SUBCUT SCH ×3 (05:38→21:16)
[2016-12-16 06:13] LABS: ABSOLUTE EOSINOPHILS # (AUTO) 0.2 10^3/uL (0.0-0.6); ABSOLUTE LYMPHOCYTES (AUTO) 1.4 10^3/uL (0.5-4.7); ABSOLUTE MONOCYTES (AUTO) 0.6 10^3/uL (0.1-1.4); ABSOLUTE NEUT (AUTO) 6.4 10^3/uL (1.7-8.2); BASOPHILS % (AUTO) 0.2 % (0-2); EOSINOPHILS % (AUTO) 2.8 % (0-6); HEMATOCRIT 28.7 % (36.0-47.0); HEMOGLOBIN 9.3 g/dL (12.0-15.5); HGB HCT DIFFERENCE -0.8; LYMPHOCYTES % (AUTO) 16.2 % (13-45); MEAN CORPUSCULAR HEMOGLOBIN 30.4 pg (27.0-33.4); MEAN CORPUSCULAR HGB CONC 32.4 g/dL (32.0-36.0); MEAN CORPUSCULAR VOLUME 94 fl (80-97); MONOCYTES % (AUTO) 6.7 % (3-13); RED BLOOD COUNT 3.05 10^6/uL (3.72-5.28); RED CELL DISTRIBUTION WIDTH 18.4 % (11.5-14.0); SEGMENTED NEUTROPHILS % (AUTO) 74.1 % (42-78); WHITE BLOOD COUNT 8.6 10^3/uL (4.0-10.5)
[2016-12-16 06:32] LABS: ANION GAP 10 (5-19); BLOOD UREA NITROGEN 21 mg/dL (7-20); CALCIUM 8.7 mg/dL (8.4-10.2); CARBON DIOXIDE 35 mmol/L (22-30); CHLORIDE 94 mmol/L (98-107); CREATININE RESULT 1.11 mg/dL (0.52-1.25); GLUCOSE 88 mg/dL (75-110); MAGNESIUM 1.5 mg/dL (1.6-2.3); POTASSIUM 3.3 mmol/L (3.6-5.0); SODIUM 139.3 mmol/L (137-145)
[2016-12-16] MEDS: SILDENAFIL CITRATE 20 MG TABLET PO SCH ×3 (08:37→16:41)
[2016-12-16] MEDS ORDERED: POTASSIUM CHLORIDE 10 MEQ TABLET.SA PO ONE (08:39)
[2016-12-16] MEDS ORDERED: MAGNESIUM OXIDE 400 MG TABLET PO ONE (08:40)
[2016-12-16] MEDS: SPIRONOLACTONE 25 MG TABLET PO SCH (10:21)
[2016-12-16] MEDS: MIDODRINE HCL 5 MG TABLET PO SCH ×3 (10:21→17:26)
[2016-12-16] MEDS: GUAIFENESIN 600 MG TABLET.SA PO SCH ×2 (10:21→21:16)
[2016-12-16] MEDS: DOCUSATE SODIUM 100 MG CAPSULE PO SCH ×2 (10:21→17:26)
[2016-12-16] MEDS: THIAMINE HCL 100 MG TABLET PO SCH (10:21)
[2016-12-16] MEDS: GABAPENTIN 300 MG CAPSULE PO SCH ×2 (10:21→21:15)
[2016-12-16] MEDS: ACETAMINOPHEN 325 MG TABLET PO PRN ×2 (11:45→21:16)
[2016-12-16] MEDS: BUMETANIDE 1 MG TABLET PO SCH (14:17)
--- NOTE | 2016-12-16 15:09 | PDOC PROGRESS REPORT ---
Subjective Progress Note for:: 12/16/16 Subjective:: This is a follow-up visit for respiratory failure. Patient was seen earlier this morning. We discussed her possibly going to an LTAC. She is willing to consider this if it is not too far away from home. If it is too far for her she will consider leaving with BiPAP and taking her chances and perhaps needing a trach in the future. Physical Exam Vital Signs: Temp Pulse Resp BP Pulse Ox 98.6 F 69 22 H 120/62 82 L 12/16/16 11:42 12/16/16 12:21 12/16/16 12:21 12/16/16 11:42 12/16/16 11:42 Intake & Output 12/15/16 12/16/16 12/17/16 06:59 06:59 06:59 Intake Total 275 877 Output Total 1100 800 Balance -825 77 Weight 119.7 kg 119.8 kg Physical exam: General: This is a well-developed well-nourished obese white female resting in bed on bilevel Pap in no acute distress Heart: RRR no murmurs, gallops or rubs. Lungs: difficult to appreciate due to bipap noise, but sounds relatively clear anteriorly Abdomen: Soft, non-tender, non-distended, obese Extremities: 1+ edema at ankles. no clubbing or cyanosis. Sebastian hose in place Neuro: Awake and alert. cranial nerves are grossly in tact. Results Laboratory Results: 12/16/16 05:10 12/16/16 05:10 12/16/16 12/16/16 05:10 05:10 WBC 8.6 RBC 3.05 L Hgb 9.3 L Hct 28.7 L MCV 94 MCH 30.4 MCHC 32.4 RDW 18.4 H Plt Count 216 Seg Neutrophils % 74.1 Lymphocytes % 16.2 Monocytes % 6.7 Eosinophils % 2.8 Basophils % 0.2 Absolute Neutrophils 6.4 Absolute Lymphocytes 1.4 Absolute Monocytes 0.6 Absolute Eosinophils 0.2 Absolute Basophils 0.0 Sodium 139.3 Potassium 3.3 L Chloride 94 L Carbon Dioxide 35 H Anion Gap 10 BUN 21 H Creatinine 1.11 Est GFR ( Amer) 59 L Est GFR (Non-Af Amer) 48 L Glucose 88 Calcium 8.7 Magnesium 1.5 L 12/03/16 12/03/16 12/03/16 06:20 06:20 12:02 Creatine Kinase < 20 L < 20 L CK-MB (CK-2) 0.55 Troponin I 0.028 NT-Pro-B Natriuret Pep 12/03/16 12/03/16 12/03/16 12:02 18:20 18:20 Creatine Kinase < 20 L CK-MB (CK-2) 0.47 0.32 Troponin I 0.018 0.016 NT-Pro-B Natriuret Pep 12/04/16 12/09/16 04:31 05:13 Creatine Kinase CK-MB (CK-2) Troponin I NT-Pro-B Natriuret Pep 44574 H 6320 H Impressions: Chest X-Ray 12/06/16 00:00 IMPRESSION: NO CHANGE IN APPEARANCE OF THE CHEST. Assessment & Plan - Diagnosis (1) Acute and chronic respiratory failure with hypercapnia Is this a current diagnosis for this admission?: YesPlan: Continue bilevel Pap. Pulmonology following. Unfortunately, facilities in the area will not take the patient with this device. Having her on trilogy would decrease her rate of readmission. If we cannot find a local facility the patient can be discharged on bilevel Pap. If she returned to the hospital in respiratory distress, then we would have to consider pressing forth with trilogy outside of this community versus [facility]. Patient is will to at least look. (2) Obesity hypoventilation syndrome Is this a current diagnosis for this admission?: YesPlan: Plan as per #1 (3) CHF (congestive heart failure) Qualifiers: Congestive heart failure type: diastolic Congestive heart failure chronicity: acute on chronic Qualified Code(s): I50.33 - Acute on chronic diastolic (congestive) heart failure Is this a current diagnosis for this admission?: YesPlan: continue diuresis (4) Pneumonia Qualifiers: Pneumonia type: due to unspecified organism Lung location: unspecified part of lung Is this a current diagnosis for this admission?: YesPlan: Continue antibiotics. - Time Time Spent with patient: 25-34 minutes - Inpatient Certification Medical Necessity: Need Close Monitoring Due to Risk of Patient Decompensation
[2016-12-16] MEDS: ATORVASTATIN CALCIUM 40 MG TABLET PO SCH (21:16)
[2016-12-17] MEDS: IPRATROPIUM/ALBUTEROL 0.5-2.5 MG/3 ML AMPUL NEB SCH ×6 (00:30→20:11)
[2016-12-17 05:26] LABS: ABSOLUTE EOSINOPHILS # (AUTO) 0.3 10^3/uL (0.0-0.6); ABSOLUTE LYMPHOCYTES (AUTO) 1.6 10^3/uL (0.5-4.7); ABSOLUTE MONOCYTES (AUTO) 0.5 10^3/uL (0.1-1.4); ABSOLUTE NEUT (AUTO) 6.2 10^3/uL (1.7-8.2); BASOPHILS % (AUTO) 0.2 % (0-2); EOSINOPHILS % (AUTO) 3.8 % (0-6); HEMATOCRIT 29.3 % (36.0-47.0); HEMOGLOBIN 9.6 g/dL (12.0-15.5); HGB HCT DIFFERENCE -0.5; LYMPHOCYTES % (AUTO) 18.3 % (13-45); MEAN CORPUSCULAR HEMOGLOBIN 30.6 pg (27.0-33.4); MEAN CORPUSCULAR HGB CONC 32.7 g/dL (32.0-36.0); MEAN CORPUSCULAR VOLUME 94 fl (80-97); RED BLOOD COUNT 3.12 10^6/uL (3.72-5.28); RED CELL DISTRIBUTION WIDTH 18.4 % (11.5-14.0); SEGMENTED NEUTROPHILS % (AUTO) 71.7 % (42-78); WHITE BLOOD COUNT 8.6 10^3/uL (4.0-10.5)
[2016-12-17 05:43] LABS: ANION GAP 12 (5-19); BLOOD UREA NITROGEN 23 mg/dL (7-20); CALCIUM 8.8 mg/dL (8.4-10.2); CARBON DIOXIDE 34 mmol/L (22-30); CHLORIDE 96 mmol/L (98-107); CREATININE RESULT 1.15 mg/dL (0.52-1.25); GLUCOSE 85 mg/dL (75-110); MAGNESIUM 1.7 mg/dL (1.6-2.3); POTASSIUM 3.9 mmol/L (3.6-5.0); SODIUM 141.7 mmol/L (137-145)
[2016-12-17] MEDS: LEVOTHYROXINE SODIUM 0.15 MG TABLET PO SCH (05:45)
[2016-12-17] MEDS: HEPARIN SOD (PORCINE) 5,000 UNIT/ML 1 ML SYRINGE SUBCUT SCH ×3 (05:45→22:17)
[2016-12-17] MEDS: SILDENAFIL CITRATE 20 MG TABLET PO SCH ×3 (08:52→16:33)
[2016-12-17] MEDS: GABAPENTIN 300 MG CAPSULE PO SCH ×2 (10:16→22:20)
[2016-12-17] MEDS: GUAIFENESIN 600 MG TABLET.SA PO SCH ×2 (10:16→22:20)
[2016-12-17] MEDS: BUMETANIDE 1 MG TABLET PO SCH (10:16)
[2016-12-17] MEDS: THIAMINE HCL 100 MG TABLET PO SCH (10:17)
[2016-12-17] MEDS: DOCUSATE SODIUM 100 MG CAPSULE PO SCH ×2 (10:17→18:24)
[2016-12-17] MEDS: SPIRONOLACTONE 25 MG TABLET PO SCH (10:18)
[2016-12-17] MEDS: MIDODRINE HCL 5 MG TABLET PO SCH ×3 (10:18→18:24)
--- NOTE | 2016-12-17 14:10 | PDOC PROGRESS REPORT ---
Subjective Progress Note for:: 12/17/16 Subjective:: This is a follow-up visit for respiratory failure. Seen at 9 AM . patient was seen earlier this morning. No acute events overnight. The patient asks what next step is to getting her to facility. I Reiterated that we need to see if there is a facility available that would take her on trilogy. Physical Exam Vital Signs: Temp Pulse Resp BP Pulse Ox 98.3 F 62 18 111/56 L 94 12/17/16 08:50 12/17/16 11:52 12/17/16 11:52 12/17/16 08:50 12/17/16 11:52 Intake & Output 12/16/16 12/17/16 12/18/16 06:59 06:59 06:59 Intake Total 877 820 Output Total 800 700 Balance 77 120 Weight 119.8 kg 118.9 kg Physical exam: General: This is a well-developed well-nourished obese white female resting in bed on bilevel Pap in no acute distress Heart: RRR no murmurs, gallops or rubs. Lungs: clear anteriorly Abdomen: Soft, non-tender, non-distended, obese Extremities: 1+ edema at ankles. no clubbing or cyanosis. Sebastian hose in place Neuro: Awake and alert. cranial nerves are grossly in tact. Results Laboratory Results: 12/17/16 05:17 12/17/16 05:17 12/17/16 12/17/16 05:17 05:17 WBC 8.6 RBC 3.12 L Hgb 9.6 L Hct 29.3 L MCV 94 MCH 30.6 MCHC 32.7 RDW 18.4 H Plt Count 236 Seg Neutrophils % 71.7 Lymphocytes % 18.3 Monocytes % 6.0 Eosinophils % 3.8 Basophils % 0.2 Absolute Neutrophils 6.2 Absolute Lymphocytes 1.6 Absolute Monocytes 0.5 Absolute Eosinophils 0.3 Absolute Basophils 0.0 Sodium 141.7 Potassium 3.9 Chloride 96 L Carbon Dioxide 34 H Anion Gap 12 BUN 23 H Creatinine 1.15 Est GFR ( Amer) 56 L Est GFR (Non-Af Amer) 47 L Glucose 85 Calcium 8.8 Magnesium 1.7 12/03/16 12/03/16 12/03/16 06:20 06:20 12:02 Creatine Kinase < 20 L < 20 L CK-MB (CK-2) 0.55 Troponin I 0.028 NT-Pro-B Natriuret Pep 12/03/16 12/03/16 12/03/16 12:02 18:20 18:20 Creatine Kinase < 20 L CK-MB (CK-2) 0.47 0.32 Troponin I 0.018 0.016 NT-Pro-B Natriuret Pep 12/04/16 12/09/16 04:31 05:13 Creatine Kinase CK-MB (CK-2) Troponin I NT-Pro-B Natriuret Pep 14719 H 6320 H Impressions: Chest X-Ray 12/06/16 00:00 IMPRESSION: NO CHANGE IN APPEARANCE OF THE CHEST. Assessment & Plan - Diagnosis (1) Acute and chronic respiratory failure with hypercapnia Is this a current diagnosis for this admission?: YesPlan: Continue bilevel Pap. Pulmonology following. Unfortunately, facilities in the area will not take the patient with this device. Having her on trilogy would decrease her rate of readmission. If we cannot find a local facility the patient can be discharged on bilevel Pap. If she returned to the hospital in respiratory distress, then we would have to consider pressing forth with trilogy outside of this community versus trach. Discharge planning is still looking for a place. (2) Obesity hypoventilation syndrome Is this a current diagnosis for this admission?: YesPlan: Plan as per #1 (3) CHF (congestive heart failure) Qualifiers: Congestive heart failure type: diastolic Congestive heart failure chronicity: acute on chronic Qualified Code(s): I50.33 - Acute on chronic diastolic (congestive) heart failure Is this a current diagnosis for this admission?: YesPlan: continue diuresis (4) Pneumonia Qualifiers: Pneumonia type: due to unspecified organism Lung location: unspecified part of lung Is this a current diagnosis for this admission?: YesPlan: Continue antibiotics. - Time Time Spent with patient: 15-24 minutes - Inpatient Certification Medical Necessity: Need Close Monitoring Due to Risk of Patient Decompensation
--- NOTE | 2016-12-17 15:33 | PDOC PROGRESS REPORT ---
Subjective Progress Note for:: 12/16/16 Subjective:: on BiPAP Remains NIPPV dependent Physical Exam Vital Signs: Temp Pulse Resp BP Pulse Ox 98.3 F 62 18 114/52 L 94 12/17/16 11:02 12/17/16 11:52 12/17/16 11:52 12/17/16 11:02 12/17/16 11:52 Intake & Output 12/16/16 12/17/16 12/18/16 06:59 06:59 06:59 Intake Total 877 820 175 Output Total 800 700 300 Balance 77 120 -125 Weight 119.8 kg 118.9 kg General appearance: PRESENT: cooperative, disheveled, mild distress, morbidly obese, well-developed Head exam: PRESENT: atraumatic, normocephalic Eye exam: PRESENT: conjunctiva pale, EOMI Mouth exam: PRESENT: dry mucosa, neck supple, tongue midline Neck exam: ABSENT: carotid bruit, JVD, lymphadenopathy, thyromegaly Respiratory exam: PRESENT: decreased breath sounds, prolonged expiratory phas, rhonchi, symmetrical Cardiovascular exam: PRESENT: RRR, +S1, +S2 Pulses: PRESENT: normal radial pulses GI/Abdominal exam: PRESENT: ascites, other - Morbidly obese Rectal exam: PRESENT: deferred Gentrourinary exam: PRESENT: indwelling catheter Extremities exam: PRESENT: +1 edema Neurological exam: PRESENT: alert, awake Psychiatric exam: PRESENT: normal mood Skin exam: PRESENT: dry, warm Results Laboratory Results: 12/17/16 05:17 12/17/16 05:17 12/17/16 12/17/16 05:17 05:17 WBC 8.6 RBC 3.12 L Hgb 9.6 L Hct 29.3 L MCV 94 MCH 30.6 MCHC 32.7 RDW 18.4 H Plt Count 236 Seg Neutrophils % 71.7 Lymphocytes % 18.3 Monocytes % 6.0 Eosinophils % 3.8 Basophils % 0.2 Absolute Neutrophils 6.2 Absolute Lymphocytes 1.6 Absolute Monocytes 0.5 Absolute Eosinophils 0.3 Absolute Basophils 0.0 Sodium 141.7 Potassium 3.9 Chloride 96 L Carbon Dioxide 34 H Anion Gap 12 BUN 23 H Creatinine 1.15 Est GFR ( Amer) 56 L Est GFR (Non-Af Amer) 47 L Glucose 85 Calcium 8.8 Magnesium 1.7 05/12/03/16 12/03/16 06:20 06:20 12:02 Creatine Kinase < 20 L < 20 L CK-MB (CK-2) 0.55 Troponin I 0.028 NT-Pro-B Natriuret Pep 12/03/16 12/03/16 12/03/16 12:02 18:20 18:20 Creatine Kinase < 20 L CK-MB (CK-2) 0.47 0.32 Troponin I 0.018 0.016 NT-Pro-B Natriuret Pep 12/04/16 12/09/16 04:31 05:13 Creatine Kinase CK-MB (CK-2) Troponin I NT-Pro-B Natriuret Pep 54361 H 6320 H Impressions: Chest X-Ray 12/06/16 00:00 IMPRESSION: NO CHANGE IN APPEARANCE OF THE CHEST. Assessment & Plan - Diagnosis (1) COPD with acute exacerbation Is this a current diagnosis for this admission?: Yes (2) Hypoxia Is this a current diagnosis for this admission?: YesPlan: Stable,.Chronic O2 dependent (3) Obesity hypoventilation syndrome Is this a current diagnosis for this admission?: Yes (4) Acute and chronic respiratory failure with hypercapnia Is this a current diagnosis for this admission?: No (5) Obstructive sleep apnea Is this a current diagnosis for this admission?: Yes (6) Tobacco dependency Is this a current diagnosis for this admission?: Yes
--- NOTE | 2016-12-17 15:36 | PDOC PROGRESS REPORT ---
Subjective Progress Note for:: 12/17/16 Subjective:: Patient is just finishing a meal and is on nasal canula with poor SaO2 tolerating well Physical Exam Vital Signs: Temp Pulse Resp BP Pulse Ox 98.3 F 62 18 114/52 L 94 12/17/16 11:02 12/17/16 11:52 12/17/16 11:52 12/17/16 11:02 12/17/16 11:52 Intake & Output 12/16/16 12/17/16 12/18/16 06:59 06:59 06:59 Intake Total 877 820 175 Output Total 800 700 300 Balance 77 120 -125 Weight 119.8 kg 118.9 kg General appearance: PRESENT: cooperative, disheveled, morbidly obese, well- developed Head exam: PRESENT: atraumatic, normocephalic Eye exam: PRESENT: conjunctiva pale, EOMI Mouth exam: PRESENT: moist, neck supple, tongue midline Neck exam: ABSENT: carotid bruit, JVD, lymphadenopathy, thyromegaly Respiratory exam: PRESENT: decreased breath sounds, prolonged expiratory phas, rhonchi, symmetrical, unlabored Cardiovascular exam: PRESENT: RRR, +S1, +S2 Pulses: PRESENT: normal radial pulses GI/Abdominal exam: PRESENT: normal bowel sounds, soft, other - Morbidly obese. ABSENT: distended, guarding, mass, organolmegaly, rebound, tenderness Rectal exam: PRESENT: deferred Extremities exam: PRESENT: +1 edema Neurological exam: PRESENT: alert, awake Psychiatric exam: PRESENT: normal mood Skin exam: PRESENT: dry, warm Results Laboratory Results: 12/17/16 05:17 12/17/16 05:17 12/17/16 12/17/16 05:17 05:17 WBC 8.6 RBC 3.12 L Hgb 9.6 L Hct 29.3 L MCV 94 MCH 30.6 MCHC 32.7 RDW 18.4 H Plt Count 236 Seg Neutrophils % 71.7 Lymphocytes % 18.3 Monocytes % 6.0 Eosinophils % 3.8 Basophils % 0.2 Absolute Neutrophils 6.2 Absolute Lymphocytes 1.6 Absolute Monocytes 0.5 Absolute Eosinophils 0.3 Absolute Basophils 0.0 Sodium 141.7 Potassium 3.9 Chloride 96 L Carbon Dioxide 34 H Anion Gap 12 BUN 23 H Creatinine 1.15 Est GFR ( Amer) 56 L Est GFR (Non-Af Amer) 47 L Glucose 85 Calcium 8.8 Magnesium 1.7 12/03/16 12/03/16 12/03/16 06:20 06:20 12:02 Creatine Kinase < 20 L < 20 L CK-MB (CK-2) 0.55 Troponin I 0.028 NT-Pro-B Natriuret Pep 12/03/16 12/03/16 12/03/16 12:02 18:20 18:20 Creatine Kinase < 20 L CK-MB (CK-2) 0.47 0.32 Troponin I 0.018 0.016 NT-Pro-B Natriuret Pep 12/04/16 12/09/16 04:31 05:13 Creatine Kinase CK-MB (CK-2) Troponin I NT-Pro-B Natriuret Pep 20300 H 6320 H Impressions: Chest X-Ray 12/06/16 00:00 IMPRESSION: NO CHANGE IN APPEARANCE OF THE CHEST. Assessment & Plan - Diagnosis (1) COPD with acute exacerbation Is this a current diagnosis for this admission?: YesPlan: Continue current bronchodilator therapy.Patient is at or near baseline (2) Hypoxia Is this a current diagnosis for this admission?: Yes (3) Obesity hypoventilation syndrome Is this a current diagnosis for this admission?: Yes (4) Acute and chronic respiratory failure with hypercapnia Is this a current diagnosis for this admission?: No (5) Obstructive sleep apnea Is this a current diagnosis for this admission?: Yes (6) Tobacco dependency Is this a current diagnosis for this admission?: Yes
--- NOTE | 2016-12-17 15:38 | PDOC PROGRESS REPORT ---
Subjective Progress Note for:: 12/14/16 Subjective:: on BiPAP Remains NIPPV dependent Physical Exam Vital Signs: Temp Pulse Resp BP Pulse Ox 100.3 F 75 19 92/78 L 92 12/15/16 12:29 12/15/16 14:00 12/15/16 12:29 12/15/16 12:29 12/15/16 12:29 Intake & Output 12/14/16 12/15/16 12/16/16 06:59 06:59 06:59 Intake Total 1150 275 200 Output Total 1250 1100 100 Balance -100 -825 100 Weight 122 kg 119.7 kg General appearance: PRESENT: cooperative, disheveled, mild distress, obese, well -developed Head exam: PRESENT: atraumatic, normocephalic Eye exam: PRESENT: conjunctiva pale, EOMI Mouth exam: PRESENT: dry mucosa, neck supple, tongue midline Neck exam: ABSENT: carotid bruit, JVD, lymphadenopathy, thyromegaly Respiratory exam: PRESENT: decreased breath sounds, prolonged expiratory phas, rhonchi, symmetrical, unlabored Cardiovascular exam: PRESENT: RRR, +S1, +S2 GI/Abdominal exam: PRESENT: normal bowel sounds, soft. ABSENT: distended, guarding, mass, organolmegaly, rebound, tenderness Rectal exam: PRESENT: deferred Gentrourinary exam: PRESENT: indwelling catheter Extremities exam: PRESENT: +1 edema Neurological exam: PRESENT: alert, awake Psychiatric exam: PRESENT: normal mood Skin exam: PRESENT: dry, pallor Results Laboratory Results: 12/15/16 05:09 12/15/16 05:09 12/15/16 12/15/16 05:09 05:09 WBC 8.4 RBC 3.11 L Hgb 9.4 L Hct 29.6 L MCV 95 MCH 30.4 MCHC 31.9 L RDW 18.2 H Plt Count 238 Sodium 140.9 Potassium 3.7 Chloride 94 L Carbon Dioxide 36 H Anion Gap 11 BUN 20 Creatinine 1.05 Est GFR ( Amer) > 60 Est GFR (Non-Af Amer) 52 L Glucose 84 Calcium 8.8 12/03/16 12/03/16 12/03/16 06:20 06:20 12:02 Creatine Kinase < 20 L < 20 L CK-MB (CK-2) 0.55 Troponin I 0.028 NT-Pro-B Natriuret Pep 12/03/16 12/03/16 12/03/16 12:02 18:20 18:20 Creatine Kinase < 20 L CK-MB (CK-2) 0.47 0.32 Troponin I 0.018 0.016 NT-Pro-B Natriuret Pep 12/04/16 12/09/16 04:31 05:13 Creatine Kinase CK-MB (CK-2) Troponin I NT-Pro-B Natriuret Pep 61326 H 6320 H Impressions: Chest X-Ray 12/06/16 00:00 IMPRESSION: NO CHANGE IN APPEARANCE OF THE CHEST. Assessment & Plan - Diagnosis (1) COPD with acute exacerbation Is this a current diagnosis for this admission?: YesPlan: Improving (2) Hypoxia Is this a current diagnosis for this admission?: YesPlan: Chronic hypoxemic respiratory failure.Principal difficulty at this time finding appropriate placement center for noninvasive positive pressure ventilation (3) Obesity hypoventilation syndrome Is this a current diagnosis for this admission?: Yes (4) Acute and chronic respiratory failure with hypercapnia Is this a current diagnosis for this admission?: No (5) Obstructive sleep apnea Is this a current diagnosis for this admission?: Yes (6) Tobacco dependency Is this a current diagnosis for this admission?: Yes
[2016-12-17] MEDS: ACETAMINOPHEN 325 MG TABLET PO PRN (22:19)
[2016-12-17] MEDS: ATORVASTATIN CALCIUM 40 MG TABLET PO SCH (22:20)
[2016-12-18] MEDS: IPRATROPIUM/ALBUTEROL 0.5-2.5 MG/3 ML AMPUL NEB SCH ×6 (00:06→19:52)
[2016-12-18] MEDS: HEPARIN SOD (PORCINE) 5,000 UNIT/ML 1 ML SYRINGE SUBCUT SCH ×3 (06:42→21:32)
[2016-12-18] MEDS: LEVOTHYROXINE SODIUM 0.15 MG TABLET PO SCH (06:44)
[2016-12-18] MEDS: SILDENAFIL CITRATE 20 MG TABLET PO SCH ×3 (08:03→16:32)
[2016-12-18] MEDS: GABAPENTIN 300 MG CAPSULE PO SCH ×2 (09:49→21:32)
[2016-12-18] MEDS: DOCUSATE SODIUM 100 MG CAPSULE PO SCH ×2 (09:49→17:13)
[2016-12-18] MEDS: THIAMINE HCL 100 MG TABLET PO SCH (09:49)
[2016-12-18] MEDS: MIDODRINE HCL 5 MG TABLET PO SCH ×3 (09:50→17:13)
[2016-12-18] MEDS: GUAIFENESIN 600 MG TABLET.SA PO SCH ×2 (09:50→21:31)
[2016-12-18] MEDS: SPIRONOLACTONE 25 MG TABLET PO SCH (09:51)
[2016-12-18] MEDS: BUMETANIDE 1 MG TABLET PO SCH (09:51)
[2016-12-18] MEDS: ACETAMINOPHEN 325 MG TABLET PO PRN ×2 (11:20→22:06)
--- NOTE | 2016-12-18 11:36 | PDOC PROGRESS REPORT ---
Subjective Progress Note for:: 12/18/16 Subjective:: Remains NIPPV dependent Physical Exam Vital Signs: Temp Pulse Resp BP Pulse Ox 98.3 F 65 22 H 124/67 93 12/18/16 07:11 12/18/16 07:11 12/18/16 07:11 12/18/16 07:11 12/18/16 07:11 Intake & Output 12/17/16 12/18/16 12/19/16 06:59 06:59 06:59 Intake Total 820 375 Output Total 700 1700 Balance 120 -1325 Weight 118.9 kg 118.1 kg General appearance: PRESENT: no acute distress, cooperative, disheveled, morbidly obese, well-developed Head exam: PRESENT: atraumatic, normocephalic Eye exam: PRESENT: conjunctiva pale, EOMI Mouth exam: PRESENT: dry mucosa, neck supple Neck exam: ABSENT: carotid bruit, JVD, lymphadenopathy, thyromegaly Respiratory exam: PRESENT: decreased breath sounds, prolonged expiratory phas, rales, rhonchi, symmetrical, unlabored Cardiovascular exam: PRESENT: RRR, +S1, +S2 Pulses: PRESENT: normal radial pulses GI/Abdominal exam: PRESENT: normal bowel sounds, soft. ABSENT: distended, guarding, mass, organolmegaly, rebound, tenderness Rectal exam: PRESENT: deferred Gentrourinary exam: PRESENT: indwelling catheter Extremities exam: PRESENT: +1 edema Neurological exam: PRESENT: alert, awake Skin exam: PRESENT: dry, warm Results Laboratory Results: 12/17/16 05:17 12/17/16 05:17 12/03/16 12/03/16 12/03/16 06:20 06:20 12:02 Creatine Kinase < 20 L < 20 L CK-MB (CK-2) 0.55 Troponin I 0.028 NT-Pro-B Natriuret Pep 12/03/16 12/03/16 12/03/16 12:02 18:20 18:20 Creatine Kinase < 20 L CK-MB (CK-2) 0.47 0.32 Troponin I 0.018 0.016 NT-Pro-B Natriuret Pep 12/04/16 12/09/16 04:31 05:13 Creatine Kinase CK-MB (CK-2) Troponin I NT-Pro-B Natriuret Pep 49280 H 6320 H Impressions: Chest X-Ray 12/06/16 00:00 IMPRESSION: NO CHANGE IN APPEARANCE OF THE CHEST. Assessment & Plan - Diagnosis (1) COPD with acute exacerbation Is this a current diagnosis for this admission?: No (2) Hypoxia Is this a current diagnosis for this admission?: Yes (3) Obesity hypoventilation syndrome Is this a current diagnosis for this admission?: Yes (4) Acute and chronic respiratory failure with hypercapnia Is this a current diagnosis for this admission?: No (5) Obstructive sleep apnea Is this a current diagnosis for this admission?: Yes (6) Tobacco dependency Is this a current diagnosis for this admission?: Yes - Plan Summary Plan Summary: Discharge plan is continue to work towards placement
--- NOTE | 2016-12-18 13:15 | PDOC PROGRESS REPORT ---
Subjective Progress Note for:: 12/18/16 Subjective:: This is a follow-up visit for respiratory failure. patient was seen earlier this morning. No acute events overnight. She denies any chest pain or shortness of breath. Her BiPAP is off for her to eat. Physical Exam Vital Signs: Temp Pulse Resp BP Pulse Ox 98.7 F 67 22 H 120/52 L 83 L 12/18/16 12:29 12/18/16 12:29 12/18/16 12:29 12/18/16 12:29 12/18/16 12:29 Intake & Output 12/17/16 12/18/16 12/19/16 06:59 06:59 06:59 Intake Total 820 375 150 Output Total 700 1700 400 Balance 120 -1325 -250 Weight 118.9 kg 118.1 kg Physical exam: General: This is a well-developed well-nourished obese white female resting in bed on nasal cannula in no acute distress Heart: RRR no murmurs, gallops or rubs. Lungs: clear to auscultation bilaterally with equal rise and fall of the chest. Abdomen: Soft, non-tender, non-distended, obese Extremities: 1+ edema at ankles. no clubbing or cyanosis. Neuro: Awake and alert. cranial nerves are grossly in tact. Results Laboratory Results: 12/17/16 05:12/17/16 05:12/03/16 12/03/16 12/03/16 06:20 06:20 12:02 Creatine Kinase < 20 L < 20 L CK-MB (CK-2) 0.55 Troponin I 0.028 NT-Pro-B Natriuret Pep 12/03/16 12/03/16 12/03/16 12:02 18:20 18:20 Creatine Kinase < 20 L CK-MB (CK-2) 0.47 0.32 Troponin I 0.018 0.016 NT-Pro-B Natriuret Pep 12/04/16 12/09/16 04:31 05:13 Creatine Kinase CK-MB (CK-2) Troponin I NT-Pro-B Natriuret Pep 04357 H 6320 H Impressions: Chest X-Ray 12/06/16 00:00 IMPRESSION: NO CHANGE IN APPEARANCE OF THE CHEST. Assessment & Plan - Diagnosis (1) Acute and chronic respiratory failure with hypercapnia Is this a current diagnosis for this admission?: YesPlan: Continue bilevel Pap. Pulmonology following. Unfortunately, facilities in the area will not take the patient with this device. Having her on trilogy would decrease her rate of readmission. If we cannot find a local facility the patient can be discharged on bilevel Pap. If she returned to the hospital in respiratory distress, then we would have to consider pressing forth with trilogy outside of this community versus trach. Discharge planning is still looking for a place. (2) Obesity hypoventilation syndrome Is this a current diagnosis for this admission?: YesPlan: Plan as per #1 (3) CHF (congestive heart failure) Qualifiers: Congestive heart failure type: diastolic Congestive heart failure chronicity: acute on chronic Qualified Code(s): I50.33 - Acute on chronic diastolic (congestive) heart failure Is this a current diagnosis for this admission?: YesPlan: continue diuresis (4) Pneumonia Qualifiers: Pneumonia type: due to unspecified organism Lung location: unspecified part of lung Is this a current diagnosis for this admission?: YesPlan: Continue antibiotics. - Time Time Spent with patient: 15-24 minutes - Inpatient Certification Medical Necessity: Need Close Monitoring Due to Risk of Patient Decompensation
[2016-12-18] MEDS: ATORVASTATIN CALCIUM 40 MG TABLET PO SCH (21:32)
[2016-12-19] MEDS: IPRATROPIUM/ALBUTEROL 0.5-2.5 MG/3 ML AMPUL NEB SCH ×7 (03:03→23:54)
[2016-12-19] MEDS: HEPARIN SOD (PORCINE) 5,000 UNIT/ML 1 ML SYRINGE SUBCUT SCH ×3 (05:25→21:35)
[2016-12-19] MEDS: LEVOTHYROXINE SODIUM 0.15 MG TABLET PO SCH (05:25)
[2016-12-19 05:45] LABS: ABSOLUTE BASOPHILS # (AUTO) 0.2 10^3/uL (0.0-0.2); ABSOLUTE EOSINOPHILS # (AUTO) 0.4 10^3/uL (0.0-0.6); ABSOLUTE LYMPHOCYTES (AUTO) 1.2 10^3/uL (0.5-4.7); ABSOLUTE MONOCYTES (AUTO) 0.4 10^3/uL (0.1-1.4); ABSOLUTE NEUT (AUTO) 6.2 10^3/uL (1.7-8.2); BASOPHILS % (AUTO) 2.9 % (0-2); EOSINOPHILS % (AUTO) 4.7 % (0-6); HEMATOCRIT 29.9 % (36.0-47.0); HEMOGLOBIN 9.6 g/dL (12.0-15.5); HGB HCT DIFFERENCE -1.1; LYMPHOCYTES % (AUTO) 14.1 % (13-45); MEAN CORPUSCULAR HEMOGLOBIN 30.3 pg (27.0-33.4); MEAN CORPUSCULAR HGB CONC 32.1 g/dL (32.0-36.0); MEAN CORPUSCULAR VOLUME 94 fl (80-97); MONOCYTES % (AUTO) 4.7 % (3-13); RED BLOOD COUNT 3.17 10^6/uL (3.72-5.28); RED CELL DISTRIBUTION WIDTH 18.2 % (11.5-14.0); SEGMENTED NEUTROPHILS % (AUTO) 73.6 % (42-78); WHITE BLOOD COUNT 8.4 10^3/uL (4.0-10.5)
[2016-12-19 05:59] LABS: ANION GAP 10 (5-19); BLOOD UREA NITROGEN 23 mg/dL (7-20); CALCIUM 8.8 mg/dL (8.4-10.2); CARBON DIOXIDE 33 mmol/L (22-30); CHLORIDE 98 mmol/L (98-107); CREATININE RESULT 1.15 mg/dL (0.52-1.25); GLUCOSE 89 mg/dL (75-110); MAGNESIUM 1.6 mg/dL (1.6-2.3); POTASSIUM 3.2 mmol/L (3.6-5.0); SODIUM 140.5 mmol/L (137-145)
[2016-12-19] MEDS: SILDENAFIL CITRATE 20 MG TABLET PO SCH ×3 (08:12→17:53)
[2016-12-19] MEDS ORDERED: POTASSI CL 20 MEQ/50 ML RIDER 50 ML IV ONE (09:00)
[2016-12-19] MEDS: THIAMINE HCL 100 MG TABLET PO SCH (09:16)
[2016-12-19] MEDS: MIDODRINE HCL 5 MG TABLET PO SCH ×3 (09:16→17:52)
[2016-12-19] MEDS: GUAIFENESIN 600 MG TABLET.SA PO SCH ×2 (09:16→21:35)
[2016-12-19] MEDS: BUMETANIDE 1 MG TABLET PO SCH (09:16)
[2016-12-19] MEDS: SPIRONOLACTONE 25 MG TABLET PO SCH (09:17)
[2016-12-19] MEDS: DOCUSATE SODIUM 100 MG CAPSULE PO SCH ×2 (09:17→17:53)
[2016-12-19] MEDS: GABAPENTIN 300 MG CAPSULE PO SCH ×2 (09:17→21:35)
[2016-12-19] MEDS: MAGNESIUM OXIDE 400 MG TABLET PO SCH (09:17)
[2016-12-19] MEDS ORDERED: POTASSIUM CHLORIDE 10 MEQ TABLET.SA PO ONE (09:45)
--- NOTE | 2016-12-19 13:55 | PDOC PROGRESS REPORT ---
Subjective Progress Note for:: 12/19/16 Subjective:: This is a follow-up visit for respiratory failure. patient was seen earlier this morning. No acute events overnight. She denies any chest pain or shortness of breath. Her BiPAP is off for her to eat. Discussed her putting forth a little more effort into assisting with helping to care for herself while here in the hospital. This includes things like helping to adjust herself in bed and working with physical therapy. Physical Exam Vital Signs: Temp Pulse Resp BP Pulse Ox 97.7 F 68 18 150/81 H 92 12/19/16 11:37 12/19/16 12:57 12/19/16 12:57 12/19/16 11:37 12/19/16 12:57 Intake & Output 12/18/16 12/19/16 12/20/16 06:59 06:59 06:59 Intake Total 375 450 200 Output Total 1700 1075 150 Balance -1325 -625 50 Weight 118.1 kg 118.3 kg Physical exam: General: This is a well-developed well-nourished obese white female resting in bed on nasal cannula in no acute distress Heart: RRR no murmurs, gallops or rubs. Lungs: clear to auscultation bilaterally with equal rise and fall of the chest. Abdomen: Soft, non-tender, non-distended, obese Extremities: 1+ edema at ankles. no clubbing or cyanosis. Neuro: Awake and alert. cranial nerves are grossly in tact. Results Laboratory Results: 12/19/16 05:13 12/19/16 05:13 12/19/16 12/19/16 05:13 05:13 WBC 8.4 RBC 3.17 L Hgb 9.6 L Hct 29.9 L MCV 94 MCH 30.3 MCHC 32.1 RDW 18.2 H Plt Count 247 Seg Neutrophils % 73.6 Lymphocytes % 14.1 Monocytes % 4.7 Eosinophils % 4.7 Basophils % 2.9 H Absolute Neutrophils 6.2 Absolute Lymphocytes 1.2 Absolute Monocytes 0.4 Absolute Eosinophils 0.4 Absolute Basophils 0.2 Sodium 140.5 Potassium 3.2 L Chloride 98 Carbon Dioxide 33 H Anion Gap 10 BUN 23 H Creatinine 1.15 Est GFR ( Amer) 56 L Est GFR (Non-Af Amer) 47 L Glucose 89 Calcium 8.8 Magnesium 1.6 05/17 05/25/17 05/25/17 06:20 06:20 12:02 Creatine Kinase < 20 L < 20 L CK-MB (CK-2) 0.55 Troponin I 0.028 NT-Pro-B Natriuret Pep 12/03/16 12/03/16 12/03/16 12:02 18:20 18:20 Creatine Kinase < 20 L CK-MB (CK-2) 0.47 0.32 Troponin I 0.018 0.016 NT-Pro-B Natriuret Pep 12/04/16 12/09/16 04:31 05:13 Creatine Kinase CK-MB (CK-2) Troponin I NT-Pro-B Natriuret Pep 22890 H 6320 H Impressions: Chest X-Ray 12/06/16 00:00 IMPRESSION: NO CHANGE IN APPEARANCE OF THE CHEST. Assessment & Plan - Diagnosis (1) Acute and chronic respiratory failure with hypercapnia Is this a current diagnosis for this admission?: YesPlan: Continue bilevel Pap. Pulmonology following. Unfortunately, facilities in the area will not take the patient with this device. Having her on trilogy would decrease her rate of readmission. If we cannot find a local facility the patient can be discharged on bilevel Pap. If she returned to the hospital in respiratory distress, then we would have to consider pressing forth with trilogy outside of this community versus [facility]. Discharge planning is still looking for a place. (2) Obesity hypoventilation syndrome Is this a current diagnosis for this admission?: YesPlan: Plan as per #1 (3) CHF (congestive heart failure) Qualifiers: Congestive heart failure type: diastolic Congestive heart failure chronicity: acute on chronic Qualified Code(s): I50.33 - Acute on chronic diastolic (congestive) heart failure Is this a current diagnosis for this admission?: YesPlan: continue diuresis (4) Pneumonia Qualifiers: Pneumonia type: due to unspecified organism Lung location: unspecified part of lung Is this a current diagnosis for this admission?: YesPlan: Continue antibiotics. - Time Time Spent with patient: 15-24 minutes - Inpatient Certification Medical Necessity: Other - awaiting placement.
[2016-12-19] MEDS: ACETAMINOPHEN 325 MG TABLET PO PRN (14:47)
[2016-12-19] MEDS: ATORVASTATIN CALCIUM 40 MG TABLET PO SCH (21:35)
[2016-12-20] MEDS: IPRATROPIUM/ALBUTEROL 0.5-2.5 MG/3 ML AMPUL NEB SCH ×5 (04:30→19:54)
[2016-12-20] MEDS: ACETAMINOPHEN 325 MG TABLET PO PRN ×2 (05:06→21:29)
[2016-12-20] MEDS: LEVOTHYROXINE SODIUM 0.15 MG TABLET PO SCH (05:06)
[2016-12-20] MEDS: HEPARIN SOD (PORCINE) 5,000 UNIT/ML 1 ML SYRINGE SUBCUT SCH ×3 (05:06→21:25)
[2016-12-20] MEDS: SILDENAFIL CITRATE 20 MG TABLET PO SCH ×3 (08:38→17:13)
[2016-12-20] MEDS: MAGNESIUM OXIDE 400 MG TABLET PO SCH (10:53)
[2016-12-20] MEDS: SPIRONOLACTONE 25 MG TABLET PO SCH (10:53)
[2016-12-20] MEDS: GUAIFENESIN 600 MG TABLET.SA PO SCH ×2 (10:53→21:25)
[2016-12-20] MEDS: THIAMINE HCL 100 MG TABLET PO SCH (10:53)
[2016-12-20] MEDS: DOCUSATE SODIUM 100 MG CAPSULE PO SCH ×2 (10:54→17:13)
[2016-12-20] MEDS: MIDODRINE HCL 5 MG TABLET PO SCH ×3 (10:54→17:12)
[2016-12-20] MEDS: GABAPENTIN 300 MG CAPSULE PO SCH ×2 (10:54→21:25)
[2016-12-20] MEDS: BUMETANIDE 1 MG TABLET PO SCH (10:56)
--- NOTE | 2016-12-20 13:01 | PDOC PROGRESS REPORT ---
Subjective Progress Note for:: 12/20/16 Subjective:: This is a follow-up visit for respiratory failure. patient was seen earlier this morning. No acute events overnight. She denies any chest pain or shortness of breath. Her BiPAP is off for her to eat. Physical Exam Vital Signs: Temp Pulse Resp BP Pulse Ox 97.8 F 74 20 114/55 L 94 12/20/16 08:14 12/20/16 08:14 12/20/16 08:14 12/20/16 08:14 12/20/16 08:14 Intake & Output 12/19/16 12/20/16 12/21/16 06:59 06:59 06:59 Intake Total 450 400 Output Total 1075 150 Balance -625 250 Weight 118.3 kg 115.3 kg Physical exam: General: This is a well-developed well-nourished obese white female resting in bed on nasal cannula in no acute distress Heart: RRR no murmurs, gallops or rubs. Lungs: clear to auscultation bilaterally with equal rise and fall of the chest. Abdomen: Soft, non-tender, non-distended, obese Extremities: 1+ edema at ankles. no clubbing or cyanosis. Neuro: Awake and alert. cranial nerves are grossly in tact. Results Laboratory Results: 12/19/16 05:13 12/19/16 05:13 12/03/16 12/03/16 12/03/16 06:20 06:20 12:02 Creatine Kinase < 20 L < 20 L CK-MB (CK-2) 0.55 Troponin I 0.028 NT-Pro-B Natriuret Pep 12/03/16 12/03/16 12/03/16 12:02 18:20 18:20 Creatine Kinase < 20 L CK-MB (CK-2) 0.47 0.32 Troponin I 0.018 0.016 NT-Pro-B Natriuret Pep 12/04/16 12/09/16 04:31 05:13 Creatine Kinase CK-MB (CK-2) Troponin I NT-Pro-B Natriuret Pep 45291 H 6320 H Impressions: Chest X-Ray 12/06/16 00:00 IMPRESSION: NO CHANGE IN APPEARANCE OF THE CHEST. Assessment & Plan - Diagnosis (1) Acute and chronic respiratory failure with hypercapnia Is this a current diagnosis for this admission?: YesPlan: Continue bilevel Pap. Pulmonology following. Unfortunately, facilities in the area will not take the patient with this device. Having her on trilogy would decrease her rate of readmission. If we cannot find a local facility the patient can be discharged on bilevel Pap. If she returned to the hospital in respiratory distress, then we would have to consider pressing forth with trilogy outside of this community versus trach. Discharge planning is still looking for a place. (2) Obesity hypoventilation syndrome Is this a current diagnosis for this admission?: YesPlan: Plan as per #1 (3) CHF (congestive heart failure) Qualifiers: Congestive heart failure type: diastolic Congestive heart failure chronicity: acute on chronic Qualified Code(s): I50.33 - Acute on chronic diastolic (congestive) heart failure Is this a current diagnosis for this admission?: YesPlan: continue diuresis (4) Pneumonia Qualifiers: Pneumonia type: due to unspecified organism Lung location: unspecified part of lung Is this a current diagnosis for this admission?: YesPlan: Continue antibiotics. - Time Time Spent with patient: 15-24 minutes - Inpatient Certification Medical Necessity: Risk of Complication if Not Cared For in Hospital
[2016-12-20] MEDS: ATORVASTATIN CALCIUM 40 MG TABLET PO SCH (21:25)
[2016-12-21] MEDS: IPRATROPIUM/ALBUTEROL 0.5-2.5 MG/3 ML AMPUL NEB SCH ×7 (00:09→23:56)
[2016-12-21 05:49] LABS: ABSOLUTE BASOPHILS # (AUTO) 0.1 10^3/uL (0.0-0.2); ABSOLUTE EOSINOPHILS # (AUTO) 0.4 10^3/uL (0.0-0.6); ABSOLUTE LYMPHOCYTES (AUTO) 1.4 10^3/uL (0.5-4.7); ABSOLUTE MONOCYTES (AUTO) 0.4 10^3/uL (0.1-1.4); BASOPHILS % (AUTO) 1.3 % (0-2); EOSINOPHILS % (AUTO) 4.9 % (0-6); HEMATOCRIT 29.5 % (36.0-47.0); HEMOGLOBIN 9.6 g/dL (12.0-15.5); HGB HCT DIFFERENCE -0.7; LYMPHOCYTES % (AUTO) 16.8 % (13-45); MEAN CORPUSCULAR HEMOGLOBIN 30.8 pg (27.0-33.4); MEAN CORPUSCULAR HGB CONC 32.4 g/dL (32.0-36.0); MEAN CORPUSCULAR VOLUME 95 fl (80-97); MONOCYTES % (AUTO) 5.1 % (3-13); RED BLOOD COUNT 3.11 10^6/uL (3.72-5.28); RED CELL DISTRIBUTION WIDTH 18.1 % (11.5-14.0); SEGMENTED NEUTROPHILS % (AUTO) 71.9 % (42-78); WHITE BLOOD COUNT 8.4 10^3/uL (4.0-10.5)
[2016-12-21] MEDS: LEVOTHYROXINE SODIUM 0.15 MG TABLET PO SCH (05:52)
[2016-12-21] MEDS: HEPARIN SOD (PORCINE) 5,000 UNIT/ML 1 ML SYRINGE SUBCUT SCH ×3 (05:52→22:13)
[2016-12-21 06:06] LABS: ANION GAP 13 (5-19); BLOOD UREA NITROGEN 22 mg/dL (7-20); CALCIUM 8.9 mg/dL (8.4-10.2); CARBON DIOXIDE 29 mmol/L (22-30); CHLORIDE 100 mmol/L (98-107); CREATININE RESULT 1.15 mg/dL (0.52-1.25); GLUCOSE 88 mg/dL (75-110); MAGNESIUM 1.8 mg/dL (1.6-2.3); POTASSIUM 3.6 mmol/L (3.6-5.0); SODIUM 141.9 mmol/L (137-145)
[2016-12-21] MEDS: SILDENAFIL CITRATE 20 MG TABLET PO SCH ×3 (08:34→16:47)
[2016-12-21] MEDS: ACETAMINOPHEN 325 MG TABLET PO PRN ×2 (08:34→22:13)
[2016-12-21] MEDS: GABAPENTIN 300 MG CAPSULE PO SCH ×2 (09:33→22:14)
[2016-12-21] MEDS: SPIRONOLACTONE 25 MG TABLET PO SCH (09:33)
[2016-12-21] MEDS: DOCUSATE SODIUM 100 MG CAPSULE PO SCH ×2 (09:34→18:38)
[2016-12-21] MEDS: MAGNESIUM OXIDE 400 MG TABLET PO SCH (09:34)
[2016-12-21] MEDS: BUMETANIDE 1 MG TABLET PO SCH (09:34)
[2016-12-21] MEDS: THIAMINE HCL 100 MG TABLET PO SCH (09:34)
[2016-12-21] MEDS: MIDODRINE HCL 5 MG TABLET PO SCH ×3 (09:34→18:37)
[2016-12-21] MEDS: GUAIFENESIN 600 MG TABLET.SA PO SCH ×2 (09:34→22:14)
[2016-12-21] MEDS: POLYETHYLENE GLYCOL 3350 POWDER 17 GM/1 PACKET PO PRN (13:20)
--- NOTE | 2016-12-21 15:45 | PDOC PROGRESS REPORT ---
Subjective Progress Note for:: 12/21/16 Subjective:: This is a follow-up visit for respiratory failure and a summary of events as per previous physician: "Subjective Progress Note for:: 12/14/16 Subjective:: reason for visit: f/u hypoxic resp failure, heart failure, pneumonia hospital course: per other's notes = "MARIANO HENRY is a 71 year old female a past medical history pneumonia, diastolic heart failure, severe pulmonary hypertension, atrial fibrillation, obstructive sleep apnea, morbid obesity, hypoventilation syndrome, venous stasis, deep vein thrombosis, stage III chronic kidney disease, renal insufficiency and recent GI bleed. She was transferred to [facility] and 24 hours ago from [facility] in [facility] on scheduled Xanax. [facility] staff were challenged by hypoxia and difficulty applying BiPAP and subsequently transferred to the emergency room for evaluation where she was found to be obtunded. Her workup reveals a right upper lobe infiltrate, and hypercapnic respiratory failure. She started on empiric BiPAP and referred to the hospitalist for admission. Her CODE STATUS is DNR. She is unable to provide history. 12/05 - She is breathing more easily this morning. Is off of BiPAP for her breakfast and seems to be tolerating a nasal cannula well. 12/06 -She is felt to be in CHF. She is diuresing very slowly. She is improving very slowly. He is still requiring BiPAP most of the day. She wonders if she has pneumonia. He has been afebrile and has had a normal white blood count. 12/07 -she is being treated for CHF. She is also obese with hypoventilation and hypercarbia. She is being treated empirically with antibiotics for pneumonia even though she is afebrile and her white blood count is normal. The chest x- ray does show some airspace disease in the lower lobes. She has diuresed very slowly. She continues to show easy O2 desaturation with minimal exertion. She has required BiPAP on and off." I inherited her care Wednesday and found her sitting upright in bed with the BiPAP off, breathing easily while at rest and sats of 90% on 5L/min via NC. Since that time she continues to require intermittent use of the BPAP for episodic breathlessness, resp fatigue and low sats unfortunately spending more time on than off the BiPAP. no change in her condition, she is high maintenance with the nursing staff and spends most of her day on the BiPAP as she fatigues easily and feels breathless with drop in her O2 sats. ROS: she still gets severely SOA with even minimal movement, sometimes even at rest, very anxious. she denies chest pain, palpitations, cough with phlegm, fever/chills, total 10 systems reviewed, remaining systems negative. No acute events overnight. She denies any chest pain or shortness of breath. Her BiPAP is off for her to eat. " 12/21/16 Over the last week, the patient has been awaiting placement. Part of the difficulty in placing her is that she needs trilogy. Local facilities will not take her with trilogy as they consider it near ventilator support and do not provide ventilator pressure support. Therefore LTAC placement was pursued. The patient chose a location down in [place] however she is been denied by this institution. My conversation with Dr. Chowdary earlier in the week we agreed that we would pursue trilogy if the patient was willing but if she was unwilling or if she was denied admission then she could be discharged to a local prison facility on BiPAP. The risk to this would be that she would likely bounce back to the hospital in respiratory distress. If this does happen then we will need to pursue trilogy at another facility or pursue trach. Currently the patient is awaiting placement for prison facility. She has no complaints today. She is not really gotten out of bed and I have asked her to sit in her recliner today for breakfast. Physical Exam Vital Signs: Temp Pulse Resp BP Pulse Ox 98.2 F 64 21 H 131/58 H 93 12/21/16 07:51 12/21/16 08:04 12/21/16 08:04 12/21/16 07:51 12/21/16 08:04 Intake & Output 12/20/16 12/21/16 12/22/16 06:59 06:59 06:59 Intake Total 400 850 Output Total 150 380 Balance 250 470 Weight 115.3 kg 116.9 kg Physical exam: General: This is a well-developed well-nourished obese white female resting in bed on nasal cannula in no acute distress Heart: RRR no murmurs, gallops or rubs. Lungs: clear to auscultation bilaterally with equal rise and fall of the chest. Abdomen: Soft, non-tender, non-distended, obese Extremities: 1+ edema at ankles. no clubbing or cyanosis. Neuro: Awake and alert. Oriented cranial nerves are grossly in tact. Results Laboratory Results: 12/21/16 05:01 12/21/16 05:01 12/21/16 12/21/16 05:01 05:01 WBC 8.4 RBC 3.11 L Hgb 9.6 L Hct 29.5 L MCV 95 MCH 30.8 MCHC 32.4 RDW 18.1 H Plt Count 256 Seg Neutrophils % 71.9 Lymphocytes % 16.8 Monocytes % 5.1 Eosinophils % 4.9 Basophils % 1.3 Absolute Neutrophils 6.0 Absolute Lymphocytes 1.4 Absolute Monocytes 0.4 Absolute Eosinophils 0.4 Absolute Basophils 0.1 Sodium 141.9 Potassium 3.6 Chloride 100 Carbon Dioxide 29 Anion Gap 13 BUN 22 H Creatinine 1.15 Est GFR ( Amer) 56 L Est GFR (Non-Af Amer) 47 L Glucose 88 Calcium 8.9 Magnesium 1.8 12/03/16 12/03/16 12/03/16 06:20 06:20 12:02 Creatine Kinase < 20 L < 20 L CK-MB (CK-2) 0.55 Troponin I 0.028 NT-Pro-B Natriuret Pep 12/03/16 12/03/16 12/03/16 12:02 18:20 18:20 Creatine Kinase < 20 L CK-MB (CK-2) 0.47 0.32 Troponin I 0.018 0.016 NT-Pro-B Natriuret Pep 12/04/16 12/09/16 04:31 05:13 Creatine Kinase CK-MB (CK-2) Troponin I NT-Pro-B Natriuret Pep 12430 H 6320 H Impressions: Chest X-Ray 12/06/16 00:00 IMPRESSION: NO CHANGE IN APPEARANCE OF THE CHEST. Assessment & Plan - Diagnosis (1) Acute and chronic respiratory failure with hypercapnia Is this a current diagnosis for this admission?: YesPlan: Continue bilevel Pap. Pulmonology following. Unfortunately, facilities in the area will not take the patient with this device. Having her on trilogy would decrease her rate of readmission. We Tried sending her down to an LTAC in [place], however, they have denied her. As of today we are going to try and get her into a local facility with bilevel Pap. If she returned to the hospital in respiratory distress, then we would have to consider pressing forth with trilogy outside of this community versus trach. Discharge planning is still looking for a place. (2) Obesity hypoventilation syndrome Is this a current diagnosis for this admission?: YesPlan: Plan as per #1 (3) CHF (congestive heart failure) Qualifiers: Congestive heart failure type: diastolic Congestive heart failure chronicity: acute on chronic Qualified Code(s): I50.33 - Acute on chronic diastolic (congestive) heart failure Is this a current diagnosis for this admission?: YesPlan: continue diuresis (4) Pneumonia Qualifiers: Pneumonia type: due to unspecified organism Lung location: unspecified part of lung Is this a current diagnosis for this admission?: YesPlan: Continue antibiotics. - Time Time Spent with patient: 15-24 minutes - Inpatient Certification Medical Necessity: Risk of Diagnosis Which Will Require Inpatient Eval/Care/ Monitoring
[2016-12-21] MEDS: ATORVASTATIN CALCIUM 40 MG TABLET PO SCH (22:13)
[2016-12-22] MEDS: IPRATROPIUM/ALBUTEROL 0.5-2.5 MG/3 ML AMPUL NEB SCH ×5 (04:30→19:59)
[2016-12-22 05:43] LABS: ANION GAP 10 (5-19); BLOOD UREA NITROGEN 24 mg/dL (7-20); CALCIUM 8.8 mg/dL (8.4-10.2); CARBON DIOXIDE 29 mmol/L (22-30); CHLORIDE 100 mmol/L (98-107); CREATININE RESULT 1.23 mg/dL (0.52-1.25); GLUCOSE 86 mg/dL (75-110); MAGNESIUM 1.8 mg/dL (1.6-2.3); POTASSIUM 3.7 mmol/L (3.6-5.0); SODIUM 138.9 mmol/L (137-145)
[2016-12-22] MEDS: LEVOTHYROXINE SODIUM 0.15 MG TABLET PO SCH (06:00)
[2016-12-22] MEDS: HEPARIN SOD (PORCINE) 5,000 UNIT/ML 1 ML SYRINGE SUBCUT SCH ×3 (06:00→21:30)
[2016-12-22] MEDS: SILDENAFIL CITRATE 20 MG TABLET PO SCH ×3 (08:52→17:51)
[2016-12-22] MEDS: DOCUSATE SODIUM 100 MG CAPSULE PO SCH ×2 (08:52→17:50)
[2016-12-22] MEDS: MIDODRINE HCL 5 MG TABLET PO SCH ×3 (10:18→18:55)
[2016-12-22] MEDS: GABAPENTIN 300 MG CAPSULE PO SCH ×2 (10:18→21:30)
[2016-12-22] MEDS: BUMETANIDE 1 MG TABLET PO SCH (10:18)
[2016-12-22] MEDS: SPIRONOLACTONE 25 MG TABLET PO SCH (10:19)
[2016-12-22] MEDS: MAGNESIUM OXIDE 400 MG TABLET PO SCH (10:19)
[2016-12-22] MEDS: GUAIFENESIN 600 MG TABLET.SA PO SCH ×2 (10:19→21:30)
[2016-12-22] MEDS: THIAMINE HCL 100 MG TABLET PO SCH (10:20)
[2016-12-22] MEDS: ACETAMINOPHEN 325 MG TABLET PO PRN (12:21)
--- NOTE | 2016-12-22 12:59 | PDOC PROGRESS REPORT ---
Subjective Progress Note for:: 12/22/16 Subjective:: hospital course: per other's notes = "MARIANO HENRY is a 71 year old female a past medical history pneumonia, diastolic heart failure, severe pulmonary hypertension, atrial fibrillation, obstructive sleep apnea, morbid obesity, hypoventilation syndrome, venous stasis, deep vein thrombosis, stage III chronic kidney disease, renal insufficiency and recent GI bleed. She was transferred to [facility] and 24 hours ago from [facility] in [facility] on scheduled Xanax. group home staff were challenged by hypoxia and difficulty applying BiPAP and subsequently transferred to the emergency room for evaluation where she was found to be obtunded. Her workup reveals a right upper lobe infiltrate, and hypercapnic respiratory failure. She started on empiric BiPAP and referred to the hospitalist for admission. Her CODE STATUS is DNR. She is unable to provide history. 12/05 - She is breathing more easily this morning. Is off of BiPAP for her breakfast and seems to be tolerating a nasal cannula well. 12/06 -She is felt to be in CHF. She is diuresing very slowly. She is improving very slowly. He is still requiring BiPAP most of the day. She wonders if she has pneumonia. He has been afebrile and has had a normal white blood count. 12/07 -she is being treated for CHF. She is also obese with hypoventilation and hypercarbia. She is being treated empirically with antibiotics for pneumonia even though she is afebrile and her white blood count is normal. The chest x- ray does show some airspace disease in the lower lobes. She has diuresed very slowly. She continues to show easy O2 desaturation with minimal exertion. She has required BiPAP on and off." I inherited her care Wednesday and found her sitting upright in bed with the BiPAP off, breathing easily while at rest and sats of 90% on 5L/min via NC. Since that time she continues to require intermittent use of the BPAP for episodic breathlessness, resp fatigue and low sats unfortunately spending more time on than off the BiPAP. no change in her condition, she is high maintenance with the nursing staff and spends most of her day on the BiPAP as she fatigues easily and feels breathless with drop in her O2 sats. 06/12/17 Over the last week, the patient has been awaiting placement. Part of the difficulty in placing her is that she needs trilogy. Local facilities will not take her with trilogy as they consider it near ventilator support and do not provide ventilator pressure support. Therefore LTAC placement was pursued. The patient chose a location down in [place] however she is been denied by this institution. My conversation with Dr. Chowdary earlier in the week we agreed that we would pursue trilogy if the patient was willing but if she was unwilling or if she was denied admission then she could be discharged to a local fdc facility on BiPAP. The risk to this would be that she would likely bounce back to the hospital in respiratory distress. If this does happen then we will need to pursue trilogy at another facility or pursue trach. Currently the patient is awaiting placement for fdc facility. She has no complaints today. She is not really gotten out of bed and I have asked her to sit in her recliner today for breakfast. ROS: she still gets severely SOA with even minimal movement, very angry this morning. she denies chest pain, palpitations, cough with phlegm, fever/chills, total 10 systems reviewed, remaining systems negative. No acute events overnight. Her BiPAP is off for her to eat. Physical Exam Vital Signs: Temp Pulse Resp BP Pulse Ox 98.5 F 68 18 134/66 H 94 12/22/16 07:52 12/22/16 08:12 12/22/16 08:12 12/22/16 07:52 12/22/16 08:12 Intake & Output 12/21/16 12/22/16 12/23/16 06:59 06:59 06:59 Intake Total 850 560 Output Total 380 Balance 470 560 Weight 116.9 kg General appearance: PRESENT: mild distress - emotional, morbidly obese Head exam: PRESENT: atraumatic, normocephalic Eye exam: ABSENT: conjunctival injection, scleral icterus Mouth exam: PRESENT: moist, neck supple Respiratory exam: PRESENT: clear to auscultation flory, unlabored. ABSENT: accessory muscle use Cardiovascular exam: PRESENT: RRR. ABSENT: tachycardia GI/Abdominal exam: PRESENT: normal bowel sounds, soft. ABSENT: tenderness Neurological exam: PRESENT: alert, awake, oriented to person, oriented to place , oriented to time, oriented to situation Psychiatric exam: PRESENT: agitated, appropriate affect Skin exam: PRESENT: rash - chronic, warm Results Laboratory Results: 12/21/16 05:01 12/22/16 04:59 12/22/16 04:59 Sodium 138.9 Potassium 3.7 Chloride 100 Carbon Dioxide 29 Anion Gap 10 BUN 24 H Creatinine 1.23 Est GFR ( Amer) 52 L Est GFR (Non-Af Amer) 43 L Glucose 86 Calcium 8.8 Magnesium 1.8 12/03/16 12/03/16 12/03/16 06:20 06:20 12:02 Creatine Kinase < 20 L < 20 L CK-MB (CK-2) 0.55 Troponin I 0.028 NT-Pro-B Natriuret Pep 12/03/16 12/03/16 12/03/16 12:02 18:20 18:20 Creatine Kinase < 20 L CK-MB (CK-2) 0.47 0.32 Troponin I 0.018 0.016 NT-Pro-B Natriuret Pep 12/04/16 12/09/16 04:31 05:13 Creatine Kinase CK-MB (CK-2) Troponin I NT-Pro-B Natriuret Pep 90505 H 6320 H Assessment & Plan - Diagnosis (1) Acute and chronic respiratory failure ([id number]) Qualifiers: Respiratory failure complication: hypoxia and hypercapnia Qualified Code(s): J96.21 - Acute and chronic respiratory failure with hypoxia Is this a current diagnosis for this admission?: Yes (2) CHF (congestive heart failure) Qualifiers: Congestive heart failure type: diastolic Congestive heart failure chronicity: acute on chronic Qualified Code(s): I50.33 - Acute on chronic diastolic (congestive) heart failure Is this a current diagnosis for this admission?: Yes (3) Chronic kidney disease (CKD) stage G3a/A1, moderately decreased glomerular filtration rate (GFR) between 45-59 mL/min/1.73 square meter and albuminuria creatinine ratio less than 30 mg/g Is this a current diagnosis for this admission?: Yes (4) DNR (do not resuscitate) Is this a current diagnosis for this admission?: Yes (5) Obesity hypoventilation syndrome Is this a current diagnosis for this admission?: Yes (6) Pneumonia Qualifiers: Pneumonia type: due to unspecified organism Lung location: unspecified part of lung Is this a current diagnosis for this admission?: Yes - Time Time Spent with patient: 35 or more minutes - Plan Summary Plan Summary: awaiting placement, disposition
--- NOTE | 2016-12-22 13:56 | PDOC PROGRESS REPORT ---
Subjective Progress Note for:: 12/21/16 Subjective:: Remains NIPPV dependent Physical Exam Vital Signs: Temp Pulse Resp BP Pulse Ox 98.5 F 68 18 134/66 H 94 12/22/16 07:52 12/22/16 08:12 12/22/16 08:12 12/22/16 07:52 12/22/16 08:12 Intake & Output 12/21/16 12/22/16 12/23/16 06:59 06:59 06:59 Intake Total 850 560 Output Total 380 Balance 470 560 Weight 116.9 kg General appearance: PRESENT: no acute distress, cooperative, disheveled, morbidly obese, well-developed Head exam: PRESENT: atraumatic, normocephalic Eye exam: PRESENT: conjunctiva pale, EOMI Mouth exam: PRESENT: dry mucosa, neck supple Respiratory exam: PRESENT: decreased breath sounds, prolonged expiratory phas, rhonchi, symmetrical, unlabored Cardiovascular exam: PRESENT: RRR, +S1, +S2 GI/Abdominal exam: PRESENT: normal bowel sounds, soft. ABSENT: distended, guarding, mass, organolmegaly, rebound, tenderness Rectal exam: PRESENT: deferred Gentrourinary exam: PRESENT: indwelling catheter Musculoskeletal exam: PRESENT: normal inspection Neurological exam: PRESENT: alert, awake Psychiatric exam: PRESENT: normal mood Skin exam: PRESENT: dry, warm Results Laboratory Results: 12/21/16 05:01 12/22/16 04:59 12/22/16 04:59 Sodium 138.9 Potassium 3.7 Chloride 100 Carbon Dioxide 29 Anion Gap 10 BUN 24 H Creatinine 1.23 Est GFR ( Amer) 52 L Est GFR (Non-Af Amer) 43 L Glucose 86 Calcium 8.8 Magnesium 1.8 12/03/16 12/03/16 12/03/16 06:20 06:20 12:02 Creatine Kinase < 20 L < 20 L CK-MB (CK-2) 0.55 Troponin I 0.028 NT-Pro-B Natriuret Pep 12/03/16 12/03/16 12/03/16 12:02 18:20 18:20 Creatine Kinase < 20 L CK-MB (CK-2) 0.47 0.32 Troponin I 0.018 0.016 NT-Pro-B Natriuret Pep 12/04/16 12/09/16 04:31 05:13 Creatine Kinase CK-MB (CK-2) Troponin I NT-Pro-B Natriuret Pep 25379 H 6320 H Impressions: Chest X-Ray 12/06/16 00:00 IMPRESSION: NO CHANGE IN APPEARANCE OF THE CHEST. Assessment & Plan - Diagnosis (1) COPD with acute exacerbation Is this a current diagnosis for this admission?: No (2) Hypoxia Is this a current diagnosis for this admission?: Yes (3) Obesity hypoventilation syndrome Is this a current diagnosis for this admission?: Yes (4) Acute and chronic respiratory failure with hypercapnia Is this a current diagnosis for this admission?: Yes (5) Obstructive sleep apnea Is this a current diagnosis for this admission?: Yes (6) Tobacco dependency Is this a current diagnosis for this admission?: Yes - Plan Summary Plan Summary: Awaiting placement to continue using trilogy device
--- NOTE | 2016-12-22 13:59 | PDOC PROGRESS REPORT ---
Subjective Progress Note for:: 12/22/16 Subjective:: Awake and alert,NIPPV dependent Physical Exam Vital Signs: Temp Pulse Resp BP Pulse Ox 98.5 F 68 18 134/66 H 94 12/22/16 07:52 12/22/16 08:12 12/22/16 08:12 12/22/16 07:52 12/22/16 08:12 Intake & Output 12/21/16 12/22/16 12/23/16 06:59 06:59 06:59 Intake Total 850 560 Output Total 380 Balance 470 560 Weight 116.9 kg General appearance: PRESENT: no acute distress, cooperative, disheveled, morbidly obese, well-developed Head exam: PRESENT: atraumatic, normocephalic Eye exam: PRESENT: conjunctiva pale, EOMI Mouth exam: PRESENT: dry mucosa, neck supple Neck exam: ABSENT: carotid bruit, JVD, lymphadenopathy, thyromegaly Respiratory exam: PRESENT: decreased breath sounds, prolonged expiratory phas, rales, rhonchi, unlabored Cardiovascular exam: PRESENT: RRR, +S1, +S2 Pulses: PRESENT: normal radial pulses GI/Abdominal exam: PRESENT: soft, other - Obese Rectal exam: PRESENT: deferred Gentrourinary exam: PRESENT: indwelling catheter Extremities exam: PRESENT: +1 edema Neurological exam: PRESENT: alert, awake Psychiatric exam: PRESENT: normal mood Skin exam: PRESENT: dry, warm Results Laboratory Results: 12/21/16 05:01 12/22/16 04:59 12/22/16 04:59 Sodium 138.9 Potassium 3.7 Chloride 100 Carbon Dioxide 29 Anion Gap 10 BUN 24 H Creatinine 1.23 Est GFR ( Amer) 52 L Est GFR (Non-Af Amer) 43 L Glucose 86 Calcium 8.8 Magnesium 1.8 12/03/16 12/03/16 12/03/16 06:20 06:20 12:02 Creatine Kinase < 20 L < 20 L CK-MB (CK-2) 0.55 Troponin I 0.028 NT-Pro-B Natriuret Pep 12/03/16 12/03/16 12/03/16 12:02 18:20 18:20 Creatine Kinase < 20 L CK-MB (CK-2) 0.47 0.32 Troponin I 0.018 0.016 NT-Pro-B Natriuret Pep 12/04/16 12/09/16 04:31 05:13 Creatine Kinase CK-MB (CK-2) Troponin I NT-Pro-B Natriuret Pep 95405 H 6320 H Impressions: Chest X-Ray 12/06/16 00:00 IMPRESSION: NO CHANGE IN APPEARANCE OF THE CHEST. Assessment & Plan - Diagnosis (1) COPD with acute exacerbation Is this a current diagnosis for this admission?: No (2) Hypoxia Is this a current diagnosis for this admission?: Yes (3) Obesity hypoventilation syndrome Is this a current diagnosis for this admission?: Yes (4) Acute and chronic respiratory failure with hypercapnia Is this a current diagnosis for this admission?: YesPlan: Long discussion with discharge planning protracted efforts place pillow placed patient while on trilogy have been unsuccessful willing to discharge patient on BiPAP ATS in effort to expedite placement (5) Obstructive sleep apnea Is this a current diagnosis for this admission?: Yes (6) Tobacco dependency Is this a current diagnosis for this admission?: Yes
[2016-12-22] MEDS: POLYETHYLENE GLYCOL 3350 POWDER 17 GM/1 PACKET PO PRN (17:51)
[2016-12-22] MEDS: ATORVASTATIN CALCIUM 40 MG TABLET PO SCH (21:31)
[2016-12-23] MEDS: IPRATROPIUM/ALBUTEROL 0.5-2.5 MG/3 ML AMPUL NEB SCH ×6 (00:19→19:42)
[2016-12-23] MEDS: HEPARIN SOD (PORCINE) 5,000 UNIT/ML 1 ML SYRINGE SUBCUT SCH ×3 (05:12→21:44)
[2016-12-23] MEDS: LEVOTHYROXINE SODIUM 0.15 MG TABLET PO SCH (05:12)
[2016-12-23] MEDS ORDERED: BISACODYL 10 MG SUPP.RECT PR ONE (09:00)
[2016-12-23] MEDS: DOCUSATE SODIUM 100 MG CAPSULE PO SCH ×2 (09:58→18:33)
[2016-12-23] MEDS: MAGNESIUM OXIDE 400 MG TABLET PO SCH (09:58)
[2016-12-23] MEDS: SILDENAFIL CITRATE 20 MG TABLET PO SCH ×3 (09:58→18:33)
[2016-12-23] MEDS: GUAIFENESIN 600 MG TABLET.SA PO SCH ×2 (09:58→21:44)
[2016-12-23] MEDS: BUMETANIDE 1 MG TABLET PO SCH (09:59)
[2016-12-23] MEDS: GABAPENTIN 300 MG CAPSULE PO SCH ×2 (09:59→21:44)
[2016-12-23] MEDS: MIDODRINE HCL 5 MG TABLET PO SCH ×3 (10:01→18:33)
[2016-12-23] MEDS: THIAMINE HCL 100 MG TABLET PO SCH (10:01)
[2016-12-23] MEDS: SPIRONOLACTONE 25 MG TABLET PO SCH (10:04)
--- NOTE | 2016-12-23 13:51 | PDOC PROGRESS REPORT ---
Subjective Progress Note for:: 12/23/16 Subjective:: hospital course: per other's notes = "MARIANO HENRY is a 71 year old female a past medical history pneumonia, diastolic heart failure, severe pulmonary hypertension, atrial fibrillation, obstructive sleep apnea, morbid obesity, hypoventilation syndrome, venous stasis, deep vein thrombosis, stage III chronic kidney disease, renal insufficiency and recent GI bleed. She was transferred to [facility] and 24 hours ago from [facility] in [facility] on scheduled Xanax. [facility] staff were challenged by hypoxia and difficulty applying BiPAP and subsequently transferred to the emergency room for evaluation where she was found to be obtunded. Her workup reveals a right upper lobe infiltrate, and hypercapnic respiratory failure. She started on empiric BiPAP and referred to the hospitalist for admission. Her CODE STATUS is DNR. She is unable to provide history. 12/05 - She is breathing more easily this morning. Is off of BiPAP for her breakfast and seems to be tolerating a nasal cannula well. 12/06 -She is felt to be in CHF. She is diuresing very slowly. She is improving very slowly. He is still requiring BiPAP most of the day. She wonders if she has pneumonia. He has been afebrile and has had a normal white blood count. 12/07 -she is being treated for CHF. She is also obese with hypoventilation and hypercarbia. She is being treated empirically with antibiotics for pneumonia even though she is afebrile and her white blood count is normal. The chest x- ray does show some airspace disease in the lower lobes. She has diuresed very slowly. She continues to show easy O2 desaturation with minimal exertion. She has required BiPAP on and off." I inherited her care Wednesday and found her sitting upright in bed with the BiPAP off, breathing easily while at rest and sats of 90% on 5L/min via NC. Since that time she continues to require intermittent use of the BPAP for episodic breathlessness, resp fatigue and low sats unfortunately spending more time on than off the BiPAP. no change in her condition, she is high maintenance with the nursing staff and spends most of her day on the BiPAP as she fatigues easily and feels breathless with drop in her O2 sats. 06/12/17 Over the last week, the patient has been awaiting placement. Part of the difficulty in placing her is that she needs trilogy. Local facilities will not take her with trilogy as they consider it near ventilator support and do not provide ventilator pressure support. Therefore LTAC placement was pursued. The patient chose a location down in [place] however she is been denied by this institution. My conversation with Dr. Chowdary earlier in the week we agreed that we would pursue trilogy if the patient was willing but if she was unwilling or if she was denied admission then she could be discharged to a local [place] [facility] facility on BiPAP. The risk to this would be that she would likely bounce back to the hospital in respiratory distress. If this does happen then we will need to pursue trilogy at another facility or pursue trach. Currently the patient is [place] placement for [place] [facility]. She has no complaints today. She is not really gotten out of bed and I have asked her to sit in her recliner today for breakfast. ROS: she still gets severely SOA with even minimal movement, more calm this morning. she denies chest pain, palpitations, cough with phlegm, fever/chills, all systems reviewed, remaining systems negative. No acute events overnight. Her BiPAP is off for her to eat. Physical Exam Vital Signs: Temp Pulse Resp BP Pulse Ox 97.4 F 65 18 136/73 H 92 12/23/16 11:26 12/23/16 12:52 12/23/16 12:52 12/23/16 11:26 12/23/16 11:26 Intake & Output 12/22/16 12/23/16 12/24/16 06:59 06:59 06:59 Intake Total 560 860 Output Total 180 Balance 560 680 Weight 116.9 kg General appearance: PRESENT: mild distress - emotional, morbidly obese Head exam: PRESENT: atraumatic, normocephalic Eye exam: ABSENT: conjunctival injection, scleral icterus Mouth exam: PRESENT: moist, neck supple Respiratory exam: PRESENT: clear to auscultation flory, unlabored. ABSENT: accessory muscle use Cardiovascular exam: PRESENT: RRR. ABSENT: tachycardia GI/Abdominal exam: PRESENT: normal bowel sounds, soft. ABSENT: tenderness Neurological exam: PRESENT: alert, awake, oriented to person, oriented to place , oriented to time, oriented to situation Psychiatric exam: PRESENT: appropriate affect, ABSENT: agitated Skin exam: PRESENT: rash - chronic, warm Results Laboratory Results: 12/21/16 05:01 12/22/16 04:59 12/03/16 12/03/16 12/03/16 06:20 06:20 12:02 Creatine Kinase < 20 L < 20 L CK-MB (CK-2) 0.55 Troponin I 0.028 NT-Pro-B Natriuret Pep 12/03/16 12/03/16 12/03/16 12:02 18:20 18:20 Creatine Kinase < 20 L CK-MB (CK-2) 0.47 0.32 Troponin I 0.018 0.016 NT-Pro-B Natriuret Pep 12/04/16 12/09/16 04:31 05:13 Creatine Kinase CK-MB (CK-2) Troponin I NT-Pro-B Natriuret Pep 32139 H 6320 H Impressions: Chest X-Ray 12/06/16 00:00 IMPRESSION: NO CHANGE IN APPEARANCE OF THE CHEST. Assessment & Plan - Diagnosis (1) Acute and chronic respiratory failure ([id number]) Qualifiers: Respiratory failure complication: hypoxia and hypercapnia Qualified Code(s): J96.21 - Acute and chronic respiratory failure with hypoxia Is this a current diagnosis for this admission?: Yes (2) CHF (congestive heart failure) Qualifiers: Congestive heart failure type: diastolic Congestive heart failure chronicity: acute on chronic Qualified Code(s): I50.33 - Acute on chronic diastolic (congestive) heart failure Is this a current diagnosis for this admission?: Yes (3) Chronic kidney disease (CKD) stage G3a/A1, moderately decreased glomerular filtration rate (GFR) between 45-59 mL/min/1.73 square meter and albuminuria creatinine ratio less than 30 mg/g Is this a current diagnosis for this admission?: Yes (4) DNR (do not resuscitate) Is this a current diagnosis for this admission?: Yes (5) Obesity hypoventilation syndrome Is this a current diagnosis for this admission?: Yes (6) Pneumonia Qualifiers: Pneumonia type: due to unspecified organism Lung location: unspecified part of lung Is this a current diagnosis for this admission?: Yes - Time Time Spent with patient: 15-24 minutes
[2016-12-23] MEDS: ACETAMINOPHEN 325 MG TABLET PO PRN (20:32)
[2016-12-23] MEDS: ATORVASTATIN CALCIUM 40 MG TABLET PO SCH (21:44)
[2016-12-24] MEDS: IPRATROPIUM/ALBUTEROL 0.5-2.5 MG/3 ML AMPUL NEB SCH ×6 (00:18→19:49)
[2016-12-24] MEDS: HEPARIN SOD (PORCINE) 5,000 UNIT/ML 1 ML SYRINGE SUBCUT SCH ×3 (06:22→22:17)
[2016-12-24] MEDS: LEVOTHYROXINE SODIUM 0.15 MG TABLET PO SCH (06:22)
[2016-12-24] MEDS: BUMETANIDE 1 MG TABLET PO SCH (10:17)
[2016-12-24] MEDS: SILDENAFIL CITRATE 20 MG TABLET PO SCH ×3 (10:17→18:01)
[2016-12-24] MEDS: MAGNESIUM OXIDE 400 MG TABLET PO SCH (10:17)
[2016-12-24] MEDS: GABAPENTIN 300 MG CAPSULE PO SCH ×2 (10:17→22:16)
[2016-12-24] MEDS: DOCUSATE SODIUM 100 MG CAPSULE PO SCH ×2 (10:17→18:01)
[2016-12-24] MEDS: GUAIFENESIN 600 MG TABLET.SA PO SCH ×2 (10:17→22:17)
[2016-12-24] MEDS: SPIRONOLACTONE 25 MG TABLET PO SCH (10:17)
[2016-12-24] MEDS: THIAMINE HCL 100 MG TABLET PO SCH (10:17)
[2016-12-24] MEDS: MIDODRINE HCL 5 MG TABLET PO SCH ×3 (10:19→18:01)
[2016-12-24] MEDS: ATORVASTATIN CALCIUM 40 MG TABLET PO SCH (22:16)
[2016-12-25] MEDS: IPRATROPIUM/ALBUTEROL 0.5-2.5 MG/3 ML AMPUL NEB SCH ×7 (00:04→23:32)
[2016-12-25] MEDS: LEVOTHYROXINE SODIUM 0.15 MG TABLET PO SCH (05:43)
[2016-12-25] MEDS: HEPARIN SOD (PORCINE) 5,000 UNIT/ML 1 ML SYRINGE SUBCUT SCH ×3 (05:44→22:48)
[2016-12-25] MEDS: GUAIFENESIN 600 MG TABLET.SA PO SCH ×2 (09:47→22:48)
[2016-12-25] MEDS: THIAMINE HCL 100 MG TABLET PO SCH (09:47)
[2016-12-25] MEDS: GABAPENTIN 300 MG CAPSULE PO SCH ×2 (09:47→22:48)
[2016-12-25] MEDS: DOCUSATE SODIUM 100 MG CAPSULE PO SCH ×2 (09:47→18:00)
[2016-12-25] MEDS: SILDENAFIL CITRATE 20 MG TABLET PO SCH ×3 (09:47→18:00)
[2016-12-25] MEDS: SPIRONOLACTONE 25 MG TABLET PO SCH (09:47)
[2016-12-25] MEDS: MAGNESIUM OXIDE 400 MG TABLET PO SCH (09:47)
[2016-12-25] MEDS: MIDODRINE HCL 5 MG TABLET PO SCH ×3 (09:48→18:00)
[2016-12-25] MEDS: BUMETANIDE 1 MG TABLET PO SCH (09:48)
--- NOTE | 2016-12-25 11:10 | PDOC PROGRESS REPORT ---
Subjective Progress Note for:: 12/25/16 Subjective:: hospital course: per other's notes = "MARIANO HENRY is a 71 year old female a past medical history pneumonia, diastolic heart failure, severe pulmonary hypertension, atrial fibrillation, obstructive sleep apnea, morbid obesity, hypoventilation syndrome, venous stasis, deep vein thrombosis, stage III chronic kidney disease, renal insufficiency and recent GI bleed. She was transferred to [facility] and 24 hours ago from [facility] in [facility] on scheduled Xanax. [facility] staff were challenged by hypoxia and difficulty applying BiPAP and subsequently transferred to the emergency room for evaluation where she was found to be obtunded. Her workup reveals a right upper lobe infiltrate, and hypercapnic respiratory failure. She started on empiric BiPAP and referred to the hospitalist for admission. Her CODE STATUS is DNR. She is unable to provide history. 12/05 - She is breathing more easily this morning. Is off of BiPAP for her breakfast and seems to be tolerating a nasal cannula well. 12/06 -She is felt to be in CHF. She is diuresing very slowly. She is improving very slowly. He is still requiring BiPAP most of the day. She wonders if she has pneumonia. He has been afebrile and has had a normal white blood count. 12/07 -she is being treated for CHF. She is also obese with hypoventilation and hypercarbia. She is being treated empirically with antibiotics for pneumonia even though she is afebrile and her white blood count is normal. The chest x- ray does show some airspace disease in the lower lobes. She has diuresed very slowly. She continues to show easy O2 desaturation with minimal exertion. She has required BiPAP on and off." I inherited her care Wednesday and found her sitting upright in bed with the BiPAP off, breathing easily while at rest and sats of 90% on 5L/min via NC. Since that time she continues to require intermittent use of the BPAP for episodic breathlessness, resp fatigue and low sats unfortunately spending more time on than off the BiPAP. no change in her condition, she is high maintenance with the nursing staff and spends most of her day on the BiPAP as she fatigues easily and feels breathless with drop in her O2 sats. the patient awaits placement, [facility] has chosen to deny first without offering alternatives indicating she can continue to get the care she needs here. Part of the difficulty in placing her is that she needs trilogy. Local facilities will not take her with trilogy as they consider it near ventilator support and do not provide ventilator pressure support. Therefore LTAC placement was pursued. The patient chose a location down in [place] however she is been denied by this institution. My conversation with Dr. Chowdary earlier in the week we agreed that we would pursue trilogy if the patient was willing but if she was unwilling or if she was denied admission then she could be discharged to a local alf facility on BiPAP. The risk to this would be that she would likely bounce back to the hospital in respiratory distress. If this does happen then we will need to pursue trilogy at another facility or pursue trach. Currently the patient is awaiting placement for alf facility. She has no new complaints today. ROS: she still gets severely SOA with even minimal movement, calm this morning. she denies chest pain, palpitations, cough with phlegm, fever/chills, all systems reviewed, remaining systems negative. No new events overnight. Physical Exam Vital Signs: Temp Pulse Resp BP Pulse Ox 98.3 F 59 L 21 H 112/70 93 12/25/16 08:00 12/25/16 08:00 12/25/16 08:00 12/25/16 08:00 12/25/16 08:00 Intake & Output 12/24/16 12/25/16 12/26/16 06:59 06:59 06:59 Intake Total 2095 1100 Output Total 150 Balance 1945 1100 Weight 115.2 kg 115 kg General appearance: PRESENT: no acute distress, morbidly obese, well-developed, well-nourished Respiratory exam: PRESENT: clear to auscultation flory, unlabored. ABSENT: accessory muscle use, wheezes Neurological exam: PRESENT: alert, awake, oriented to person, oriented to place , oriented to time, oriented to situation Psychiatric exam: PRESENT: appropriate affect, normal mood Focused psych exam: ABSENT: psychomotor agitation, restlessness Skin exam: PRESENT: rash - as before of the BLEs Results Laboratory Results: 12/21/16 05:01 12/22/16 04:59 12/03/16 12/03/16 12/03/16 06:20 06:20 12:02 Creatine Kinase < 20 L < 20 L CK-MB (CK-2) 0.55 Troponin I 0.028 NT-Pro-B Natriuret Pep 12/03/16 12/03/16 12/03/16 12:02 18:20 18:20 Creatine Kinase < 20 L CK-MB (CK-2) 0.47 0.32 Troponin I 0.018 0.016 NT-Pro-B Natriuret Pep 12/04/16 12/09/16 04:31 05:13 Creatine Kinase CK-MB (CK-2) Troponin I NT-Pro-B Natriuret Pep 25626 H 6320 H Assessment & Plan - Diagnosis (1) Acute and chronic respiratory failure ([id number]) Qualifiers: Respiratory failure complication: hypoxia and hypercapnia Qualified Code(s): J96.21 - Acute and chronic respiratory failure with hypoxia Is this a current diagnosis for this admission?: Yes (2) CHF (congestive heart failure) Qualifiers: Congestive heart failure type: diastolic Congestive heart failure chronicity: acute on chronic Qualified Code(s): I50.33 - Acute on chronic diastolic (congestive) heart failure Is this a current diagnosis for this admission?: Yes (3) Chronic kidney disease (CKD) stage G3a/A1, moderately decreased glomerular filtration rate (GFR) between 45-59 mL/min/1.73 square meter and albuminuria creatinine ratio less than 30 mg/g Is this a current diagnosis for this admission?: Yes (4) DNR (do not resuscitate) Is this a current diagnosis for this admission?: Yes (5) Obesity hypoventilation syndrome Is this a current diagnosis for this admission?: Yes (6) Pneumonia Qualifiers: Pneumonia type: due to unspecified organism Lung location: unspecified part of lung Is this a current diagnosis for this admission?: Yes - Time Time Spent with patient: Less than 15 minutes Anticipated discharge: SNF Within: within 72 hours - Plan Summary Plan Summary: anticipate transfer to SNF with bipap Wednesday
[2016-12-25] MEDS: ATORVASTATIN CALCIUM 40 MG TABLET PO SCH (22:48)
[2016-12-26] MEDS: IPRATROPIUM/ALBUTEROL 0.5-2.5 MG/3 ML AMPUL NEB SCH ×6 (03:56→23:50)
[2016-12-26] MEDS: LEVOTHYROXINE SODIUM 0.15 MG TABLET PO SCH (06:49)
[2016-12-26] MEDS: HEPARIN SOD (PORCINE) 5,000 UNIT/ML 1 ML SYRINGE SUBCUT SCH ×3 (06:49→21:31)
[2016-12-26] MEDS: GABAPENTIN 300 MG CAPSULE PO SCH ×2 (09:22→21:32)
[2016-12-26] MEDS: DOCUSATE SODIUM 100 MG CAPSULE PO SCH ×2 (09:22→17:06)
[2016-12-26] MEDS: THIAMINE HCL 100 MG TABLET PO SCH (09:23)
[2016-12-26] MEDS: MAGNESIUM OXIDE 400 MG TABLET PO SCH (09:23)
[2016-12-26] MEDS: SPIRONOLACTONE 25 MG TABLET PO SCH (09:23)
[2016-12-26] MEDS: GUAIFENESIN 600 MG TABLET.SA PO SCH ×2 (09:23→21:32)
[2016-12-26] MEDS: SILDENAFIL CITRATE 20 MG TABLET PO SCH ×3 (09:24→16:17)
[2016-12-26] MEDS: BUMETANIDE 1 MG TABLET PO SCH (09:24)
[2016-12-26] MEDS: MIDODRINE HCL 5 MG TABLET PO SCH ×3 (09:25→17:06)
[2016-12-26] MEDS ORDERED: BISACODYL 10 MG SUPP.RECT PR ONE (10:00)
--- NOTE | 2016-12-26 10:09 | RADIOLOGY REPORT (SQ) ---
EXAM DESCRIPTION: HAND LEFT 2 VIEWS COMPLETED DATE/TIME: 12/26/2016 9:49 am REASON FOR STUDY: 3rd metacarpal joint swelling, poss gout COMPARISON: None. EXAM PARAMETERS: NUMBER OF VIEWS: Three views. TECHNIQUE: AP, lateral and oblique radiographic images acquired of the left hand. LIMITATIONS: None. FINDINGS: MINERALIZATION: Normal. BONES: No acute fracture or dislocation. No worrisome bone lesions. JOINTS: Osteoarthritis at the 1st carpometacarpal joint, thumb interphalangeal joint, 2nd and 3rd fin petar PIP joints and 2nd through 5th DIP joints, with joint space narrowing and bony spurring. There i s chondrocalcinosis of the 1st carpometacarpal joint, and bulky osteophyte formation along the dorsal aspect of the thumb interphalangeal joint. SOFT TISSUES: 3rd finger soft tissue swelling. No radiopaque foreign body or soft tissue gas. OTHER: No other significant finding. IMPRESSION: 3rd finger soft tissue swelling without fracture, radiopaque foreign body or soft tissue gas. Multifocal osteoarthritis TECHNICAL DOCUMENTATION: JOB ID: [id number] [employer]- All Rights Reserved
--- NOTE | 2016-12-26 10:12 | PDOC PROGRESS REPORT ---
Subjective Progress Note for:: 12/26/16 Subjective:: hospital course: per other's notes = "MARIANO HENRY is a 71 year old female a past medical history pneumonia, diastolic heart failure, severe pulmonary hypertension, atrial fibrillation, obstructive sleep apnea, morbid obesity, hypoventilation syndrome, venous stasis, deep vein thrombosis, stage III chronic kidney disease, renal insufficiency and recent GI bleed. She was transferred to [facility] and 24 hours ago from [facility]. intermediate staff were challenged by hypoxia and difficulty applying BiPAP and subsequently transferred to the emergency room for evaluation where she was found to be obtunded. Her workup reveals a right upper lobe infiltrate, and hypercapnic respiratory failure. She started on empiric BiPAP and referred to the hospitalist for admission. Her CODE STATUS is DNR. She is unable to provide history. 12/05 - She is breathing more easily this morning. Is off of BiPAP for her breakfast and seems to be tolerating a nasal cannula well. 12/06 -She is felt to be in CHF. She is diuresing very slowly. She is improving very slowly. He is still requiring BiPAP most of the day. She wonders if she has pneumonia. He has been afebrile and has had a normal white blood count. 12/07 -she is being treated for CHF. She is also obese with hypoventilation and hypercarbia. She is being treated empirically with antibiotics for pneumonia even though she is afebrile and her white blood count is normal. The chest x- ray does show some airspace disease in the lower lobes. She has diuresed very slowly. She continues to show easy O2 desaturation with minimal exertion. She has required BiPAP on and off." I inherited her care Wednesday and found her sitting upright in bed with the BiPAP off, breathing easily while at rest and sats of 90% on 5L/min via NC. Since that time she continues to require intermittent use of the BPAP for episodic breathlessness, resp fatigue and low sats unfortunately spending more time on than off the BiPAP. no change in her condition, she is high maintenance with the nursing staff and spends most of her day on the BiPAP as she fatigues easily and feels breathless with drop in her O2 sats. the patient awaits placement, [facility] has chosen to deny first without offering alternatives indicating she can continue to get the care she needs here. Part of the difficulty in placing her is that she needs trilogy. Local facilities will not take her with trilogy as they consider it near ventilator support and do not provide ventilator pressure support. Therefore LTAC placement was pursued. The patient chose a location down in [place] however she is been denied by this institution. My conversation with Dr. Chowdary earlier in the week we agreed that we would pursue trilogy if the patient was willing but if she was unwilling or if she was denied admission then she could be discharged to a local custodial facility on BiPAP. The risk to this would be that she would likely bounce back to the hospital in respiratory distress. If this does happen then we will need to pursue trilogy at another facility or pursue trach. Currently the patient is awaiting placement for custodial facility. new complaint 12/26 of pain and swelling in 3rd knuckle of the left hand; not sure when it started but has constant sharp, stabbing pain and swelling over the 3rd metacarpal, worse with movement, better with elevation and no ascted symptoms of n/t, heat or redness. ROS: she still gets severely SOA with even minimal movement, calm this morning. she denies chest pain, palpitations, cough with phlegm, fever/chills, all systems reviewed, remaining systems negative. No new events overnight. Physical Exam Vital Signs: Temp Pulse Resp BP Pulse Ox 98.7 F 63 24 H 117/57 L 95 12/26/16 07:37 12/26/16 07:37 12/26/16 07:37 12/26/16 07:37 12/26/16 07:37 Intake & Output 12/25/16 12/26/16 12/27/16 06:59 06:59 06:59 Intake Total 1100 790 Balance 1100 790 Weight 115 kg 113.2 kg General appearance: PRESENT: no acute distress, morbidly obese, well-developed, well-nourished Head exam: PRESENT: atraumatic, normocephalic Eye exam: ABSENT: conjunctival injection, scleral icterus Neck exam: PRESENT: full ROM. ABSENT: tracheal deviation Respiratory exam: PRESENT: crackles - bases. ABSENT: accessory muscle use, rhonchi, unlabored, wheezes Cardiovascular exam: PRESENT: RRR. ABSENT: tachycardia Pulses: PRESENT: normal radial pulses GI/Abdominal exam: PRESENT: normal bowel sounds, soft. ABSENT: tenderness Extremities exam: PRESENT: pedal edema - trace. left 3rd metacarpal and base of the proximal phalange is swollen with active synovitis evident in the joint space but no overlying fever or erythema. ABSENT: calf tenderness Neurological exam: PRESENT: alert, awake, oriented to person, oriented to place , oriented to time Psychiatric exam: PRESENT: appropriate affect, normal mood Skin exam: PRESENT: rash - chronic acrocyanotic, warm Results Laboratory Results: 12/21/16 05:01 12/22/16 04:59 12/03/16 12/03/16 12/03/16 06:20 06:20 12:02 Creatine Kinase < 20 L < 20 L CK-MB (CK-2) 0.55 Troponin I 0.028 NT-Pro-B Natriuret Pep 12/03/16 12/03/16 12/03/16 12:02 18:20 18:20 Creatine Kinase < 20 L CK-MB (CK-2) 0.47 0.32 Troponin I 0.018 0.016 NT-Pro-B Natriuret Pep 12/04/16 12/09/16 04:31 05:13 Creatine Kinase CK-MB (CK-2) Troponin I NT-Pro-B Natriuret Pep 03850 H 6320 H Impressions: Chest X-Ray 12/06/16 00:00 IMPRESSION: NO CHANGE IN APPEARANCE OF THE CHEST. Assessment & Plan - Diagnosis (1) Synovitis of finger Is this a current diagnosis for this admission?: YesPlan: new; no hx of gout but has mod to severe OA. ck plain films of the hand (2) Acute and chronic respiratory failure ([id number]) Qualifiers: Respiratory failure complication: hypoxia and hypercapnia Qualified Code(s): J96.21 - Acute and chronic respiratory failure with hypoxia Is this a current diagnosis for this admission?: Yes (3) CHF (congestive heart failure) Qualifiers: Congestive heart failure type: diastolic Congestive heart failure chronicity: acute on chronic Qualified Code(s): I50.33 - Acute on chronic diastolic (congestive) heart failure Is this a current diagnosis for this admission?: Yes (4) Chronic kidney disease (CKD) stage G3a/A1, moderately decreased glomerular filtration rate (GFR) between 45-59 mL/min/1.73 square meter and albuminuria creatinine ratio less than 30 mg/g Is this a current diagnosis for this admission?: Yes (5) DNR (do not resuscitate) Is this a current diagnosis for this admission?: Yes (6) Obesity hypoventilation syndrome Is this a current diagnosis for this admission?: Yes (7) Pneumonia Qualifiers: Pneumonia type: due to unspecified organism Lung location: unspecified part of lung Is this a current diagnosis for this admission?: Yes - Time Time Spent with patient: 25-34 minutes - Plan Summary Plan Summary: awaiting placement
[2016-12-26] MEDS: ACETAMINOPHEN 325 MG TABLET PO PRN (10:27)
--- NOTE | 2016-12-26 13:40 | PDOC PROGRESS REPORT ---
Subjective Progress Note for:: 12/23/16 Subjective:: Awake and alert,remains NIPPV dependent Physical Exam Vital Signs: Temp Pulse Resp BP Pulse Ox 97.6 F 61 16 125/63 93 12/23/16 07:37 12/23/16 07:37 12/23/16 07:37 12/23/16 07:37 12/23/16 07:37 Intake & Output 12/22/16 12/23/16 12/24/16 06:59 06:59 06:59 Intake Total 560 860 Output Total 180 Balance 560 680 Weight 116.9 kg General appearance: PRESENT: no acute distress, cooperative, disheveled, morbidly obese, well-developed Head exam: PRESENT: atraumatic, normocephalic Eye exam: PRESENT: conjunctiva pale, EOMI Mouth exam: PRESENT: dry mucosa, neck supple Neck exam: ABSENT: carotid bruit, JVD, lymphadenopathy, thyromegaly Respiratory exam: PRESENT: decreased breath sounds, prolonged expiratory phas, rhonchi, symmetrical, unlabored Cardiovascular exam: PRESENT: RRR, +S1, +S2 GI/Abdominal exam: PRESENT: normal bowel sounds, soft. ABSENT: distended, guarding, mass, organolmegaly, rebound, tenderness Rectal exam: PRESENT: deferred Gentrourinary exam: PRESENT: indwelling catheter Musculoskeletal exam: PRESENT: normal inspection Neurological exam: PRESENT: alert, awake Psychiatric exam: PRESENT: normal mood Skin exam: PRESENT: dry, warm Results Laboratory Results: 12/21/16 05:01 12/22/16 04:59 12/03/16 12/03/16 12/03/16 06:20 06:20 12:02 Creatine Kinase < 20 L < 20 L CK-MB (CK-2) 0.55 Troponin I 0.028 NT-Pro-B Natriuret Pep 12/03/16 12/03/16 12/03/16 12:02 18:20 18:20 Creatine Kinase < 20 L CK-MB (CK-2) 0.47 0.32 Troponin I 0.018 0.016 NT-Pro-B Natriuret Pep 12/04/16 12/09/16 04:31 05:13 Creatine Kinase CK-MB (CK-2) Troponin I NT-Pro-B Natriuret Pep 00635 H 6320 H Impressions: Chest X-Ray 12/06/16 00:00 IMPRESSION: NO CHANGE IN APPEARANCE OF THE CHEST. Assessment & Plan - Diagnosis (1) COPD with acute exacerbation Is this a current diagnosis for this admission?: No (2) Hypoxia Is this a current diagnosis for this admission?: Yes (3) Obesity hypoventilation syndrome Is this a current diagnosis for this admission?: Yes (4) Acute and chronic respiratory failure with hypercapnia Is this a current diagnosis for this admission?: Yes (5) Obstructive sleep apnea Is this a current diagnosis for this admission?: Yes (6) Tobacco dependency Is this a current diagnosis for this admission?: Yes
--- NOTE | 2016-12-26 13:53 | PDOC PROGRESS REPORT ---
Subjective Subjective:: Awake and alert Physical Exam Vital Signs: Temp Pulse Resp BP Pulse Ox 97.6 F 62 24 H 123/44 L 96 12/26/16 11:19 12/26/16 11:19 12/26/16 11:19 12/26/16 11:19 12/26/16 11:19 Intake & Output 12/25/16 12/26/16 12/27/16 06:59 06:59 06:59 Intake Total 1100 790 Balance 1100 790 Weight 115 kg 113.2 kg General appearance: PRESENT: cooperative, disheveled, morbidly obese, well- developed Head exam: PRESENT: atraumatic, normocephalic Eye exam: PRESENT: conjunctiva pale, EOMI Mouth exam: PRESENT: dry mucosa, neck supple Neck exam: ABSENT: carotid bruit, JVD, lymphadenopathy, thyromegaly Respiratory exam: PRESENT: decreased breath sounds, prolonged expiratory phas, rhonchi, symmetrical, unlabored Cardiovascular exam: PRESENT: RRR, +S1, +S2 Pulses: PRESENT: normal radial pulses GI/Abdominal exam: PRESENT: normal bowel sounds, soft. ABSENT: distended, guarding, mass, organolmegaly, rebound, tenderness Rectal exam: PRESENT: deferred Gentrourinary exam: PRESENT: indwelling catheter Extremities exam: PRESENT: +1 edema Neurological exam: PRESENT: alert, awake Psychiatric exam: PRESENT: normal mood Skin exam: PRESENT: dry, warm Results Laboratory Results: 12/21/16 05:01 12/22/16 04:59 12/03/16 12/03/16 12/03/16 06:20 06:20 12:02 Creatine Kinase < 20 L < 20 L CK-MB (CK-2) 0.55 Troponin I 0.028 NT-Pro-B Natriuret Pep 12/03/16 12/03/16 12/03/16 12:02 18:20 18:20 Creatine Kinase < 20 L CK-MB (CK-2) 0.47 0.32 Troponin I 0.018 0.016 NT-Pro-B Natriuret Pep 12/04/16 12/09/16 04:31 05:13 Creatine Kinase CK-MB (CK-2) Troponin I NT-Pro-B Natriuret Pep 31124 H 6320 H Impressions: Chest X-Ray 12/06/16 00:00 IMPRESSION: NO CHANGE IN APPEARANCE OF THE CHEST. Hand X-Ray 12/26/16 00:00 IMPRESSION: 3rd finger soft tissue swelling without fracture, radiopaque foreign body or soft tissue gas. Multifocal osteoarthritis Assessment & Plan - Diagnosis (1) COPD with acute exacerbation Is this a current diagnosis for this admission?: No (2) Hypoxia Is this a current diagnosis for this admission?: YesPlan: chronic (3) Obesity hypoventilation syndrome Is this a current diagnosis for this admission?: YesPlan: chronic retension (4) Acute and chronic respiratory failure with hypercapnia Is this a current diagnosis for this admission?: YesPlan: patient's best chance of avoiding frequent readmissions is using a trilogy NIPPV unit however she ca n leave to rehabilitation on a BI-PAP AVAPS (5) Obstructive sleep apnea Is this a current diagnosis for this admission?: Yes (6) Tobacco dependency Is this a current diagnosis for this admission?: Yes
[2016-12-26] MEDS: ATORVASTATIN CALCIUM 40 MG TABLET PO SCH (21:32)
[2016-12-27] MEDS: IPRATROPIUM/ALBUTEROL 0.5-2.5 MG/3 ML AMPUL NEB SCH ×5 (03:59→20:22)
[2016-12-27] MEDS: HEPARIN SOD (PORCINE) 5,000 UNIT/ML 1 ML SYRINGE SUBCUT SCH ×3 (05:50→21:36)
[2016-12-27] MEDS: LEVOTHYROXINE SODIUM 0.15 MG TABLET PO SCH (05:51)
[2016-12-27] MEDS: SILDENAFIL CITRATE 20 MG TABLET PO SCH ×3 (08:41→18:10)
[2016-12-27] MEDS: BUMETANIDE 1 MG TABLET PO SCH (09:30)
[2016-12-27] MEDS: ACETAMINOPHEN 325 MG TABLET PO PRN (09:31)
[2016-12-27] MEDS: GUAIFENESIN 600 MG TABLET.SA PO SCH ×2 (09:32→21:36)
[2016-12-27] MEDS: MAGNESIUM OXIDE 400 MG TABLET PO SCH (09:32)
[2016-12-27] MEDS: DOCUSATE SODIUM 100 MG CAPSULE PO SCH ×2 (09:32→18:10)
[2016-12-27] MEDS: SPIRONOLACTONE 25 MG TABLET PO SCH (09:32)
[2016-12-27] MEDS: GABAPENTIN 300 MG CAPSULE PO SCH ×2 (09:32→21:36)
[2016-12-27] MEDS: THIAMINE HCL 100 MG TABLET PO SCH (09:32)
[2016-12-27] MEDS: MIDODRINE HCL 5 MG TABLET PO SCH ×3 (09:33→18:10)
--- NOTE | 2016-12-27 11:01 | PDOC PROGRESS REPORT ---
Subjective Progress Note for:: 12/27/16 Subjective:: hospital course: per other's notes = "MARIANO HENRY is a 71 year old female a past medical history pneumonia, diastolic heart failure, severe pulmonary hypertension, atrial fibrillation, obstructive sleep apnea, morbid obesity, hypoventilation syndrome, venous stasis, deep vein thrombosis, stage III chronic kidney disease, renal insufficiency and recent GI bleed. She was transferred to [facility] and 24 hours ago from [facility] in [facility] on scheduled Xanax. halfway staff were challenged by hypoxia and difficulty applying BiPAP and subsequently transferred to the emergency room for evaluation where she was found to be obtunded. Her workup reveals a right upper lobe infiltrate, and hypercapnic respiratory failure. She started on empiric BiPAP and referred to the hospitalist for admission. Her CODE STATUS is DNR. She is unable to provide history. 12/05 - She is breathing more easily this morning. Is off of BiPAP for her breakfast and seems to be tolerating a nasal cannula well. 12/06 -She is felt to be in CHF. She is diuresing very slowly. She is improving very slowly. He is still requiring BiPAP most of the day. She wonders if she has pneumonia. He has been afebrile and has had a normal white blood count. 12/07 -she is being treated for CHF. She is also obese with hypoventilation and hypercarbia. She is being treated empirically with antibiotics for pneumonia even though she is afebrile and her white blood count is normal. The chest x- ray does show some airspace disease in the lower lobes. She has diuresed very slowly. She continues to show easy O2 desaturation with minimal exertion. She has required BiPAP on and off." I inherited her care Wednesday and found her sitting upright in bed with the BiPAP off, breathing easily while at rest and sats of 90% on 5L/min via NC. Since that time she continues to require intermittent use of the BPAP for episodic breathlessness, resp fatigue and low sats unfortunately spending more time on than off the BiPAP. no change in her condition, she is high maintenance with the nursing staff and spends most of her day on the BiPAP as she fatigues easily and feels breathless with drop in her O2 sats. the patient awaits placement, [facility] has chosen to deny first without offering alternatives indicating she can continue to get the care she needs here. Part of the difficulty in placing her is that she needs trilogy. Local facilities will not take her with trilogy as they consider it near ventilator support and do not provide ventilator pressure support. Therefore LTAC placement was pursued. The patient chose a location down in [place] however she is been denied by this institution. My conversation with Dr. Chowdary earlier in the week we agreed that we would pursue trilogy if the patient was willing but if she was unwilling or if she was denied admission then she could be discharged to a local jail facility on BiPAP. The risk to this would be that she would likely bounce back to the hospital in respiratory distress. If this does happen then we will need to pursue trilogy at another facility or pursue trach. Currently the patient is awaiting placement for jail facility. new complaint 12/26 of pain and swelling in 3rd knuckle of the left hand; not sure when it started but has constant sharp, stabbing pain and swelling over the 3rd metacarpal, worse with movement, better with elevation and no ascted symptoms of n/t, heat or redness. xray just confirms mod to severe OA and as of 12/27 the pain and swelling have improved. ROS: she still gets severely SOA with even minimal movement, calm this morning. she denies chest pain, palpitations, cough with phlegm, fever/chills, all systems reviewed, remaining systems negative. No new events overnight. Physical Exam Vital Signs: Temp Pulse Resp BP Pulse Ox 97.8 F 64 22 H 111/70 96 12/27/16 08:01 12/27/16 08:01 12/27/16 08:01 12/27/16 08:01 12/27/16 08:01 Intake & Output 12/26/16 12/27/16 12/28/16 06:59 06:59 06:59 Intake Total 790 850 Balance 790 850 Weight 113.2 kg 113.9 kg General appearance: PRESENT: no acute distress, morbidly obese, well-developed, well-nourished Head exam: PRESENT: atraumatic, normocephalic Eye exam: ABSENT: conjunctival injection, scleral icterus Neck exam: PRESENT: full ROM. ABSENT: tracheal deviation Respiratory exam: PRESENT: crackles - bases. ABSENT: accessory muscle use, rhonchi, unlabored, wheezes Cardiovascular exam: PRESENT: RRR. ABSENT: tachycardia Pulses: PRESENT: normal radial pulses GI/Abdominal exam: PRESENT: normal bowel sounds, soft. ABSENT: tenderness Extremities exam: PRESENT: pedal edema - trace. left 3rd metacarpal and base of the proximal phalange less wollen without active synovitis evident in the joint space as no overlying fever or erythema. ABSENT: calf tenderness Neurological exam: PRESENT: alert, awake, oriented to person, oriented to place , oriented to time Psychiatric exam: PRESENT: appropriate affect, normal mood Skin exam: PRESENT: rash - chronic acrocyanotic, warm Results Laboratory Results: 12/21/16 05:01 12/22/16 04:59 12/03/16 12/03/16 12/03/16 06:20 06:20 12:02 Creatine Kinase < 20 L < 20 L CK-MB (CK-2) 0.55 Troponin I 0.028 NT-Pro-B Natriuret Pep 12/03/16 12/03/16 12/03/16 12:02 18:20 18:20 Creatine Kinase < 20 L CK-MB (CK-2) 0.47 0.32 Troponin I 0.018 0.016 NT-Pro-B Natriuret Pep 12/04/16 12/09/16 04:31 05:13 Creatine Kinase CK-MB (CK-2) Troponin I NT-Pro-B Natriuret Pep 80520 H 6320 H Impressions: Chest X-Ray 12/06/16 00:00 IMPRESSION: NO CHANGE IN APPEARANCE OF THE CHEST. Hand X-Ray 12/26/16 00:00 IMPRESSION: 3rd finger soft tissue swelling without fracture, radiopaque foreign body or soft tissue gas. Multifocal osteoarthritis Assessment & Plan - Diagnosis (1) Synovitis of finger Is this a current diagnosis for this admission?: YesPlan: improved; no hx of gout but has mod to severe OA confirmed on plain films of the hand (2) Acute and chronic respiratory failure ([id number]) Qualifiers: Respiratory failure complication: hypoxia and hypercapnia Qualified Code(s): J96.21 - Acute and chronic respiratory failure with hypoxia Is this a current diagnosis for this admission?: Yes (3) CHF (congestive heart failure) Qualifiers: Congestive heart failure type: diastolic Congestive heart failure chronicity: acute on chronic Qualified Code(s): I50.33 - Acute on chronic diastolic (congestive) heart failure Is this a current diagnosis for this admission?: Yes (4) Chronic kidney disease (CKD) stage G3a/A1, moderately decreased glomerular filtration rate (GFR) between 45-59 mL/min/1.73 square meter and albuminuria creatinine ratio less than 30 mg/g Is this a current diagnosis for this admission?: Yes (5) DNR (do not resuscitate) Is this a current diagnosis for this admission?: Yes (6) Obesity hypoventilation syndrome Is this a current diagnosis for this admission?: Yes (7) Pneumonia Qualifiers: Pneumonia type: due to unspecified organism Lung location: unspecified part of lung Is this a current diagnosis for this admission?: Yes - Time Time Spent with patient: 25-34 minutes Anticipated discharge: SNF Within: within 24 hours - Plan Summary Plan Summary: i remain hopeful we can get her placed as early as tomorrow;
[2016-12-27] MEDS: ATORVASTATIN CALCIUM 40 MG TABLET PO SCH (21:35)
[2016-12-28] MEDS: IPRATROPIUM/ALBUTEROL 0.5-2.5 MG/3 ML AMPUL NEB SCH ×7 (01:05→23:58)
[2016-12-28] MEDS: LEVOTHYROXINE SODIUM 0.15 MG TABLET PO SCH (06:07)
[2016-12-28] MEDS: HEPARIN SOD (PORCINE) 5,000 UNIT/ML 1 ML SYRINGE SUBCUT SCH ×3 (06:07→21:20)
[2016-12-28] MEDS: SILDENAFIL CITRATE 20 MG TABLET PO SCH ×3 (08:13→17:34)
[2016-12-28] MEDS: ACETAMINOPHEN 325 MG TABLET PO PRN ×2 (09:50→20:48)
[2016-12-28] MEDS: DOCUSATE SODIUM 100 MG CAPSULE PO SCH ×2 (09:50→17:33)
[2016-12-28] MEDS: GUAIFENESIN 600 MG TABLET.SA PO SCH ×2 (09:55→21:21)
[2016-12-28] MEDS: GABAPENTIN 300 MG CAPSULE PO SCH ×2 (09:55→21:21)
[2016-12-28] MEDS: THIAMINE HCL 100 MG TABLET PO SCH (09:55)
[2016-12-28] MEDS: MAGNESIUM OXIDE 400 MG TABLET PO SCH (09:55)
[2016-12-28] MEDS: SPIRONOLACTONE 25 MG TABLET PO SCH (09:55)
--- NOTE | 2016-12-28 10:04 | PDOC PROGRESS REPORT ---
Subjective Progress Note for:: 12/28/16 Subjective:: Awake and alert Physical Exam Vital Signs: Temp Pulse Resp BP Pulse Ox 98.7 F 116 H 20 130/61 H 96 12/28/16 07:52 12/28/16 07:52 12/28/16 07:52 12/28/16 07:52 12/28/16 07:52 Intake & Output 12/27/16 12/28/16 12/29/16 06:59 06:59 06:59 Intake Total 850 690 Balance 850 690 Weight 113.9 kg 114.2 kg General appearance: PRESENT: no acute distress, cooperative, disheveled, morbidly obese, well-developed Head exam: PRESENT: atraumatic, normocephalic Eye exam: PRESENT: conjunctiva pale, EOMI Mouth exam: PRESENT: moist, neck supple Neck exam: ABSENT: carotid bruit, JVD, lymphadenopathy, thyromegaly Respiratory exam: PRESENT: decreased breath sounds, prolonged expiratory phas, rhonchi, symmetrical, unlabored Cardiovascular exam: PRESENT: RRR, +S1, +S2 Pulses: PRESENT: normal radial pulses GI/Abdominal exam: PRESENT: normal bowel sounds, soft. ABSENT: distended, guarding, mass, organolmegaly, rebound, tenderness Rectal exam: PRESENT: deferred Gentrourinary exam: PRESENT: indwelling catheter Extremities exam: PRESENT: +1 edema Neurological exam: PRESENT: alert, awake Psychiatric exam: PRESENT: normal mood Skin exam: PRESENT: dry, warm Results Laboratory Results: 12/21/16 05:01 12/22/16 04:59 12/03/16 12/03/16 12/03/16 06:20 06:20 12:02 Creatine Kinase < 20 L < 20 L CK-MB (CK-2) 0.55 Troponin I 0.028 NT-Pro-B Natriuret Pep 12/03/16 12/03/16 12/03/16 12:02 18:20 18:20 Creatine Kinase < 20 L CK-MB (CK-2) 0.47 0.32 Troponin I 0.018 0.016 NT-Pro-B Natriuret Pep 12/04/16 12/09/16 04:31 05:13 Creatine Kinase CK-MB (CK-2) Troponin I NT-Pro-B Natriuret Pep 81575 H 6320 H Impressions: Chest X-Ray 12/06/16 00:00 IMPRESSION: NO CHANGE IN APPEARANCE OF THE CHEST. Hand X-Ray 12/26/16 00:00 IMPRESSION: 3rd finger soft tissue swelling without fracture, radiopaque foreign body or soft tissue gas. Multifocal osteoarthritis Assessment & Plan - Diagnosis (1) COPD with acute exacerbation Is this a current diagnosis for this admission?: No (2) Hypoxia Is this a current diagnosis for this admission?: YesPlan: chronic (3) Obesity hypoventilation syndrome Is this a current diagnosis for this admission?: Yes (4) Acute and chronic respiratory failure with hypercapnia Is this a current diagnosis for this admission?: Yes (5) Obstructive sleep apnea Is this a current diagnosis for this admission?: Yes (6) Tobacco dependency Is this a current diagnosis for this admission?: Yes - Plan Summary Plan Summary: Patient's best option to avoid readmission would be a trilogy ventilator however this is not possible at this time. Her next best option would be BiPAP's AVAPS unfortunately this option not available at this time either. Her third best option would be on BiPAP with an FiO2 of 40% O2 Inspiratory pressure of 18 cm H2O Expiratory pressure of 8 cm H2O Respiratory rate of 12bpm Although not ideal the above BiPAP settings would be adequate for discharge to a [place] [facility] facility or rehabilitation center incapable of taking care of trilogy Ideally trilogy would be reinitiated(with current settings) if/when patient goes home
--- NOTE | 2016-12-28 10:07 | PDOC PROGRESS REPORT ---
Subjective Progress Note for:: 12/25/16 Subjective:: Awake and wearing NIPPV Physical Exam Vital Signs: Temp Pulse Resp BP Pulse Ox 97.6 F 62 24 H 123/44 L 96 12/26/16 11:19 12/26/16 11:19 12/26/16 11:19 12/26/16 11:19 12/26/16 11:19 Intake & Output 12/25/16 12/26/16 12/27/16 06:59 06:59 06:59 Intake Total 1100 790 Balance 1100 790 Weight 115 kg 113.2 kg General appearance: PRESENT: no acute distress, cooperative, disheveled, morbidly obese, well-developed Head exam: PRESENT: atraumatic, normocephalic Eye exam: PRESENT: conjunctiva pale Mouth exam: PRESENT: neck supple Neck exam: ABSENT: carotid bruit, JVD, lymphadenopathy, thyromegaly Respiratory exam: PRESENT: decreased breath sounds, prolonged expiratory phas, rhonchi, symmetrical, unlabored Cardiovascular exam: PRESENT: RRR, +S1, +S2 Pulses: PRESENT: normal radial pulses GI/Abdominal exam: PRESENT: normal bowel sounds, soft. ABSENT: distended, guarding, mass, organolmegaly, rebound, tenderness Rectal exam: PRESENT: deferred Gentrourinary exam: PRESENT: indwelling catheter Extremities exam: PRESENT: +1 edema Neurological exam: PRESENT: alert, awake Psychiatric exam: PRESENT: normal mood Skin exam: PRESENT: dry, warm Results Laboratory Results: 12/21/16 05:01 12/22/16 04:59 12/03/16 12/03/16 12/03/16 06:20 06:20 12:02 Creatine Kinase < 20 L < 20 L CK-MB (CK-2) 0.55 Troponin I 0.028 NT-Pro-B Natriuret Pep 12/03/16 12/03/16 12/03/16 12:02 18:20 18:20 Creatine Kinase < 20 L CK-MB (CK-2) 0.47 0.32 Troponin I 0.018 0.016 NT-Pro-B Natriuret Pep 12/04/16 12/09/16 04:31 05:13 Creatine Kinase CK-MB (CK-2) Troponin I NT-Pro-B Natriuret Pep 51217 H 6320 H Impressions: Chest X-Ray 12/06/16 00:00 IMPRESSION: NO CHANGE IN APPEARANCE OF THE CHEST. Hand X-Ray 12/26/16 00:00 IMPRESSION: 3rd finger soft tissue swelling without fracture, radiopaque foreign body or soft tissue gas. Multifocal osteoarthritis Assessment & Plan - Diagnosis (1) COPD with acute exacerbation Is this a current diagnosis for this admission?: No (2) Hypoxia Is this a current diagnosis for this admission?: Yes (3) Obesity hypoventilation syndrome Is this a current diagnosis for this admission?: Yes (4) Acute and chronic respiratory failure with hypercapnia Is this a current diagnosis for this admission?: Yes (5) Obstructive sleep apnea Is this a current diagnosis for this admission?: Yes (6) Tobacco dependency Is this a current diagnosis for this admission?: Yes
--- NOTE | 2016-12-28 10:08 | PDOC PROGRESS REPORT ---
Subjective Progress Note for:: 12/24/16 Subjective:: Awake and wearing NIPPV Physical Exam Vital Signs: Temp Pulse Resp BP Pulse Ox 97.6 F 62 24 H 123/44 L 96 12/26/16 11:19 12/26/16 11:19 12/26/16 11:19 12/26/16 11:19 12/26/16 11:19 Intake & Output 12/25/16 12/26/16 12/27/16 06:59 06:59 06:59 Intake Total 1100 790 Balance 1100 790 Weight 115 kg 113.2 kg General appearance: PRESENT: no acute distress, cooperative, disheveled, morbidly obese, well-developed Head exam: PRESENT: atraumatic, normocephalic Eye exam: PRESENT: conjunctiva pale, EOMI Mouth exam: PRESENT: dry mucosa, neck supple Neck exam: PRESENT: carotid bruit Respiratory exam: PRESENT: decreased breath sounds, prolonged expiratory phas, rhonchi, symmetrical, unlabored Cardiovascular exam: PRESENT: RRR, +S1, +S2 Pulses: PRESENT: normal radial pulses GI/Abdominal exam: PRESENT: normal bowel sounds, soft. ABSENT: distended, guarding, mass, organolmegaly, rebound, tenderness Rectal exam: PRESENT: deferred Gentrourinary exam: PRESENT: indwelling catheter Extremities exam: PRESENT: +1 edema Neurological exam: PRESENT: alert, awake Psychiatric exam: PRESENT: normal mood Skin exam: PRESENT: dry, warm Results Laboratory Results: 12/21/16 05:01 12/22/16 04:59 12/03/16 12/03/16 12/03/16 06:20 06:20 12:02 Creatine Kinase < 20 L < 20 L CK-MB (CK-2) 0.55 Troponin I 0.028 NT-Pro-B Natriuret Pep 12/03/16 12/03/16 12/03/16 12:02 18:20 18:20 Creatine Kinase < 20 L CK-MB (CK-2) 0.47 0.32 Troponin I 0.018 0.016 NT-Pro-B Natriuret Pep 12/04/16 12/09/16 04:31 05:13 Creatine Kinase CK-MB (CK-2) Troponin I NT-Pro-B Natriuret Pep 67134 H 6320 H Impressions: Chest X-Ray 12/06/16 00:00 IMPRESSION: NO CHANGE IN APPEARANCE OF THE CHEST. Hand X-Ray 12/26/16 00:00 IMPRESSION: 3rd finger soft tissue swelling without fracture, radiopaque foreign body or soft tissue gas. Multifocal osteoarthritis Assessment & Plan - Diagnosis (1) COPD with acute exacerbation Is this a current diagnosis for this admission?: No (2) Hypoxia Is this a current diagnosis for this admission?: Yes (3) Obesity hypoventilation syndrome Is this a current diagnosis for this admission?: Yes (4) Acute and chronic respiratory failure with hypercapnia Is this a current diagnosis for this admission?: Yes (5) Obstructive sleep apnea Is this a current diagnosis for this admission?: Yes (6) Tobacco dependency Is this a current diagnosis for this admission?: Yes
[2016-12-28] MEDS: MIDODRINE HCL 5 MG TABLET PO SCH ×3 (11:08→17:33)
[2016-12-28] MEDS: BUMETANIDE 1 MG TABLET PO SCH (11:08)
--- NOTE | 2016-12-28 15:34 | PDOC PROGRESS REPORT ---
Subjective Progress Note for:: 12/28/16 Subjective:: hospital course: per other's notes = "MARIANO HENRY is a 71 year old female a past medical history pneumonia, diastolic heart failure, severe pulmonary hypertension, atrial fibrillation, obstructive sleep apnea, morbid obesity, hypoventilation syndrome, venous stasis, deep vein thrombosis, stage III chronic kidney disease, renal insufficiency and recent GI bleed. She was transferred to [facility] and 24 hours ago from [facility] in [facility] on scheduled Xanax. detention staff were challenged by hypoxia and difficulty applying BiPAP and subsequently transferred to the emergency room for evaluation where she was found to be obtunded. Her workup reveals a right upper lobe infiltrate, and hypercapnic respiratory failure. She started on empiric BiPAP and referred to the hospitalist for admission. Her CODE STATUS is DNR. She is unable to provide history. 12/05 - She is breathing more easily this morning. Is off of BiPAP for her breakfast and seems to be tolerating a nasal cannula well. 12/06 -She is felt to be in CHF. She is diuresing very slowly. She is improving very slowly. He is still requiring BiPAP most of the day. She wonders if she has pneumonia. He has been afebrile and has had a normal white blood count. 12/07 -she is being treated for CHF. She is also obese with hypoventilation and hypercarbia. She is being treated empirically with antibiotics for pneumonia even though she is afebrile and her white blood count is normal. The chest x- ray does show some airspace disease in the lower lobes. She has diuresed very slowly. She continues to show easy O2 desaturation with minimal exertion. She has required BiPAP on and off." I inherited her care Wednesday and found her sitting upright in bed with the BiPAP off, breathing easily while at rest and sats of 90% on 5L/min via NC. Since that time she continues to require intermittent use of the BPAP for episodic breathlessness, resp fatigue and low sats unfortunately spending more time on than off the BiPAP. no change in her condition, she is high maintenance with the nursing staff and spends most of her day on the BiPAP as she fatigues easily and feels breathless with drop in her O2 sats. the patient awaits placement, [facility] has chosen to deny first without offering alternatives indicating she can continue to get the care she needs here. Part of the difficulty in placing her is that she needs trilogy. Local facilities will not take her with trilogy as they consider it near ventilator support and do not provide ventilator pressure support. Therefore LTAC placement was pursued. The patient chose a location down in [place] however she is been denied by this institution. My conversation with Dr. Chowdary earlier in the week we agreed that we would pursue trilogy if the patient was willing but if she was unwilling or if she was denied admission then she could be discharged to a local long-term facility on BiPAP. The risk to this would be that she would likely bounce back to the hospital in respiratory distress. If this does happen then we will need to pursue trilogy at another facility or pursue trach. Currently the patient is awaiting placement for long-term facility. new complaint 12/26 of pain and swelling in 3rd knuckle of the left hand; not sure when it started but has constant sharp, stabbing pain and swelling over the 3rd metacarpal, worse with movement, better with elevation and no ascted symptoms of n/t, heat or redness. xray just confirms mod to severe OA and as of 12/27 the pain and swelling have improved. ROS: she still gets severely SOA with even minimal movement, calm this morning. she denies chest pain, palpitations, cough with phlegm, fever/chills, all systems reviewed, remaining systems negative. No new events overnight. Physical Exam Vital Signs: Temp Pulse Resp BP Pulse Ox 98.7 F 76 16 130/61 H 89 L 12/28/16 07:52 12/28/16 12:16 12/28/16 12:16 12/28/16 07:52 12/28/16 12:16 Intake & Output 12/27/16 12/28/16 12/29/16 06:59 06:59 06:59 Intake Total 850 690 Balance 850 690 Weight 113.9 kg 114.2 kg General appearance: PRESENT: no acute distress, morbidly obese, well-developed, well-nourished Head exam: PRESENT: atraumatic, normocephalic Eye exam: ABSENT: conjunctival injection, scleral icterus Neck exam: PRESENT: full ROM. ABSENT: tracheal deviation Respiratory exam: PRESENT: crackles - bases. ABSENT: accessory muscle use, rhonchi, unlabored, wheezes Cardiovascular exam: PRESENT: RRR. ABSENT: tachycardia Pulses: PRESENT: normal radial pulses GI/Abdominal exam: PRESENT: normal bowel sounds, soft. ABSENT: tenderness Extremities exam: PRESENT: pedal edema - trace. ABSENT: calf tenderness Neurological exam: PRESENT: alert, awake, oriented to person, oriented to place , oriented to time Psychiatric exam: PRESENT: appropriate affect, normal mood Skin exam: PRESENT: rash - chronic acrocyanotic, warm Results Laboratory Results: 12/21/16 05:01 12/22/16 04:59 12/03/16 12/03/16 12/03/16 06:20 06:20 12:02 Creatine Kinase < 20 L < 20 L CK-MB (CK-2) 0.55 Troponin I 0.028 NT-Pro-B Natriuret Pep 12/03/16 12/03/16 12/03/16 12:02 18:20 18:20 Creatine Kinase < 20 L CK-MB (CK-2) 0.47 0.32 Troponin I 0.018 0.016 NT-Pro-B Natriuret Pep 12/04/16 12/09/16 04:31 05:13 Creatine Kinase CK-MB (CK-2) Troponin I NT-Pro-B Natriuret Pep 70032 H 6320 H Impressions: Chest X-Ray 12/06/16 00:00 IMPRESSION: NO CHANGE IN APPEARANCE OF THE CHEST. Hand X-Ray 12/26/16 00:00 IMPRESSION: 3rd finger soft tissue swelling without fracture, radiopaque foreign body or soft tissue gas. Multifocal osteoarthritis Assessment & Plan - Diagnosis (1) Acute and chronic respiratory failure ([id number]) Qualifiers: Respiratory failure complication: hypoxia and hypercapnia Qualified Code(s): J96.21 - Acute and chronic respiratory failure with hypoxia Is this a current diagnosis for this admission?: YesPlan: improved on trilogy and after discussing with dr chowdary it seems clear she has reached a point in her care where she is AVVAPS dependent and would benefit from ongoing Trilogy; in fact I believe her risk for readmission is directly related to her use of BiPAP in stead of Trilogy given the difference in air handling and delivery and her pathologic/anatomic requirements. Without Trilogy there is no doubt in my mind she will need readmission to an acute care hospital in under 30d from discharge. cardiac care nurse is working to find placement in rehab that understands and willing to use this device. continue supplemental O2 but keep her sats 88-92% only. (2) CHF (congestive heart failure) Qualifiers: Congestive heart failure type: diastolic Congestive heart failure chronicity: acute on chronic Qualified Code(s): I50.33 - Acute on chronic diastolic (congestive) heart failure Is this a current diagnosis for this admission?: Yes (3) Chronic kidney disease (CKD) stage G3a/A1, moderately decreased glomerular filtration rate (GFR) between 45-59 mL/min/1.73 square meter and albuminuria creatinine ratio less than 30 mg/g Is this a current diagnosis for this admission?: Yes (4) DNR (do not resuscitate) Is this a current diagnosis for this admission?: Yes (5) Obesity hypoventilation syndrome Is this a current diagnosis for this admission?: Yes (6) Pneumonia Qualifiers: Pneumonia type: due to unspecified organism Lung location: unspecified part of lung Is this a current diagnosis for this admission?: Yes (7) Synovitis of finger Is this a current diagnosis for this admission?: Yes - Time Time Spent with patient: 15-24 minutes Anticipated discharge: SNF - when and if bed is ever available - Plan Summary Plan Summary: case discussed with dr chowdary who assured me he would document appropriate settings for outpt BiPAP to help facilitate her discharge as it seems no facility will accommodate Trilogy device.
[2016-12-28] MEDS: ATORVASTATIN CALCIUM 40 MG TABLET PO SCH (21:19)
[2016-12-29] MEDS: IPRATROPIUM/ALBUTEROL 0.5-2.5 MG/3 ML AMPUL NEB SCH ×5 (04:14→20:20)
[2016-12-29] MEDS: LEVOTHYROXINE SODIUM 0.15 MG TABLET PO SCH (05:14)
[2016-12-29] MEDS: HEPARIN SOD (PORCINE) 5,000 UNIT/ML 1 ML SYRINGE SUBCUT SCH ×3 (05:15→21:40)
[2016-12-29] MEDS: SILDENAFIL CITRATE 20 MG TABLET PO SCH ×3 (10:25→17:03)
[2016-12-29] MEDS: MIDODRINE HCL 5 MG TABLET PO SCH ×3 (10:25→17:03)
[2016-12-29] MEDS: SPIRONOLACTONE 25 MG TABLET PO SCH (10:26)
[2016-12-29] MEDS: DOCUSATE SODIUM 100 MG CAPSULE PO SCH ×2 (10:26→17:03)
[2016-12-29] MEDS: GABAPENTIN 300 MG CAPSULE PO SCH ×2 (10:26→21:35)
[2016-12-29] MEDS: GUAIFENESIN 600 MG TABLET.SA PO SCH ×2 (10:26→21:35)
[2016-12-29] MEDS: THIAMINE HCL 100 MG TABLET PO SCH (10:26)
[2016-12-29] MEDS: BUMETANIDE 1 MG TABLET PO SCH (10:26)
[2016-12-29] MEDS: MAGNESIUM OXIDE 400 MG TABLET PO SCH (10:26)
--- NOTE | 2016-12-29 16:18 | PDOC PROGRESS REPORT ---
Subjective Progress Note for:: 12/29/16 Subjective:: The patient is resting in her bed. She remains on the trilogy and is quite comfortable. She is quite frustrated over this prolonged hospitalization and is anxious to be discharged. Dr. Chowdary put in his note yesterday the settings for her potential BiPAP machine at rehab. We will see whether she gets approved for this and make further decisions. Overall with the trilogy in place she has no increased shortness of breath. She reports no fever or chills. She has had no chest pain or heart palpitation she is tolerating her diet. She has had no nausea, vomiting or diarrhea. No dysuria, frequency or hematuria Physical Exam Vital Signs: Temp Pulse Resp BP Pulse Ox 98.1 F 66 19 144/80 H 95 12/29/16 12:06 12/29/16 12:06 12/29/16 12:06 12/29/16 12:06 12/29/16 12:06 Intake & Output 12/28/16 12/29/16 12/30/16 06:59 06:59 06:59 Intake Total 690 684 750 Output Total 850 Balance 690 -166 750 Weight 114.2 kg 115 kg General appearance: PRESENT: cooperative, morbidly obese Head exam: PRESENT: atraumatic, normocephalic Mouth exam: PRESENT: moist Respiratory exam: PRESENT: decreased breath sounds Cardiovascular exam: PRESENT: RRR, +S1, +S2 GI/Abdominal exam: PRESENT: normal bowel sounds, soft. ABSENT: tenderness Extremities exam: PRESENT: +1 edema. ABSENT: calf tenderness Neurological exam: PRESENT: alert, awake, oriented to person, oriented to place , oriented to time Psychiatric exam: PRESENT: appropriate affect Skin exam: PRESENT: dry, warm Results Laboratory Results: 12/21/16 05:01 12/22/16 04:59 12/03/16 12/03/16 12/03/16 06:20 06:20 12:02 Creatine Kinase < 20 L < 20 L CK-MB (CK-2) 0.55 Troponin I 0.028 NT-Pro-B Natriuret Pep 12/03/16 12/03/16 12/03/16 12:02 18:20 18:20 Creatine Kinase < 20 L CK-MB (CK-2) 0.47 0.32 Troponin I 0.018 0.016 NT-Pro-B Natriuret Pep 12/04/16 12/09/16 04:31 05:13 Creatine Kinase CK-MB (CK-2) Troponin I NT-Pro-B Natriuret Pep 68022 H 6320 H Impressions: Chest X-Ray 12/06/16 00:00 IMPRESSION: NO CHANGE IN APPEARANCE OF THE CHEST. Hand X-Ray 12/26/16 00:00 IMPRESSION: 3rd finger soft tissue swelling without fracture, radiopaque foreign body or soft tissue gas. Multifocal osteoarthritis Assessment & Plan - Diagnosis (1) Acute and chronic respiratory failure ([id number]) Qualifiers: Respiratory failure complication: hypoxia and hypercapnia Qualified Code(s): J96.21 - Acute and chronic respiratory failure with hypoxia Is this a current diagnosis for this admission?: YesPlan: She has acute on chronic hypoxic and hypercapnic respiratory failure. Currently on trilogy. The discharge planners are working on disposition. At this point Dr. Chowdary indicated yesterday that she could go out on BiPAP support. He wrote setting in his note from yesterday. (2) COPD with acute exacerbation Is this a current diagnosis for this admission?: NoPlan: Her acute exacerbation is resolved (3) Chronic kidney disease (CKD) stage G3a/A1, moderately decreased glomerular filtration rate (GFR) between 45-59 mL/min/1.73 square meter and albuminuria creatinine ratio less than 30 mg/g Is this a current diagnosis for this admission?: YesPlan: Stable (4) Obesity hypoventilation syndrome Is this a current diagnosis for this admission?: YesPlan: She needs trilogy but will likely have to be discharged on BiPAP. Dr. Chowdary is following. (5) Pleural effusion Plan: Stable (6) Cor pulmonale (chronic) Plan: Currently not decompensated. (7) Moderate to severe pulmonary hypertension Plan: The patient needs trilogy at this point. (8) Physical deconditioning Plan: Ultimately the patient will be discharged to subacute rehabilitation - Time Time Spent with patient: 25-34 minutes
[2016-12-29] MEDS: ATORVASTATIN CALCIUM 40 MG TABLET PO SCH (21:35)
[2016-12-29] MEDS: ACETAMINOPHEN 325 MG TABLET PO PRN (22:27)
[2016-12-30] MEDS: IPRATROPIUM/ALBUTEROL 0.5-2.5 MG/3 ML AMPUL NEB SCH ×7 (00:14→23:55)
[2016-12-30] MEDS: HEPARIN SOD (PORCINE) 5,000 UNIT/ML 1 ML SYRINGE SUBCUT SCH ×3 (05:05→21:35)
[2016-12-30] MEDS: LEVOTHYROXINE SODIUM 0.15 MG TABLET PO SCH (05:18)
[2016-12-30] MEDS: SILDENAFIL CITRATE 20 MG TABLET PO SCH ×3 (08:29→17:34)
[2016-12-30 09:10] LABS: HEMOGLOBIN 10.2 g/dL (12.0-15.5); HGB HCT DIFFERENCE -1.4; MEAN CORPUSCULAR HEMOGLOBIN 30.1 pg (27.0-33.4); MEAN CORPUSCULAR VOLUME 94 fl (80-97); RED CELL DISTRIBUTION WIDTH 17.2 % (11.5-14.0); WHITE BLOOD COUNT 8.1 10^3/uL (4.0-10.5)
[2016-12-30] MEDS: BUMETANIDE 1 MG TABLET PO SCH (09:13)
[2016-12-30] MEDS: MAGNESIUM OXIDE 400 MG TABLET PO SCH (09:14)
[2016-12-30] MEDS: GUAIFENESIN 600 MG TABLET.SA PO SCH ×2 (09:14→21:35)
[2016-12-30] MEDS: SPIRONOLACTONE 25 MG TABLET PO SCH (09:14)
[2016-12-30] MEDS: MIDODRINE HCL 5 MG TABLET PO SCH ×3 (09:14→17:34)
[2016-12-30] MEDS: THIAMINE HCL 100 MG TABLET PO SCH (09:15)
[2016-12-30] MEDS: DOCUSATE SODIUM 100 MG CAPSULE PO SCH ×2 (09:15→17:35)
[2016-12-30] MEDS: GABAPENTIN 300 MG CAPSULE PO SCH ×2 (09:15→21:36)
[2016-12-30] MEDS: ACETAMINOPHEN 325 MG TABLET PO PRN ×2 (11:50→22:27)
--- NOTE | 2016-12-30 15:08 | PDOC PROGRESS REPORT ---
Subjective Progress Note for:: 12/30/16 Subjective:: The patient is resting in her bed. She is off of her trilogy and receiving oxygen via nasal cannula and is quite comfortable. She i remains frustrated over this prolonged hospitalization and is anxious to be discharged. Dr. Chowdary put in his note two days ago for the settings for her potential BiPAP machine at rehab. Overall he is up he will to her insurance company to get the trilogy machine. We will see whether she gets approved for this and make further decisions. Overall she has no increased shortness of breath today. She reports no fever or chills. She has had no chest pain or heart palpitation she is tolerating her diet. She has had no nausea, vomiting or diarrhea. No dysuria, frequency or hematuria Physical Exam Vital Signs: Temp Pulse Resp BP Pulse Ox 98.3 F 66 16 125/57 L 99 12/30/16 11:54 12/30/16 12:00 12/30/16 12:00 12/30/16 11:54 12/30/16 11:54 Intake & Output 12/29/16 12/30/16 12/31/16 06:59 06:59 06:59 Intake Total 684 860 Output Total 850 0 Balance -166 860 Weight 115 kg 116 kg General appearance: PRESENT: no acute distress, morbidly obese, well-developed, well-nourished Head exam: PRESENT: atraumatic, normocephalic Mouth exam: PRESENT: moist, neck supple Respiratory exam: PRESENT: clear to auscultation flory. ABSENT: accessory muscle use, chest wall tenderness, rales, rhonchi, wheezes Cardiovascular exam: PRESENT: RRR, +S1, +S2. ABSENT: diastolic murmur, gallop, rubs, systolic murmur GI/Abdominal exam: PRESENT: normal bowel sounds, soft. ABSENT: tenderness Extremities exam: ABSENT: calf tenderness, clubbing, pedal edema Neurological exam: PRESENT: alert, awake, oriented to person, oriented to place , oriented to time, oriented to situation Psychiatric exam: PRESENT: appropriate affect Skin exam: PRESENT: dry, warm Results Laboratory Results: 12/30/16 08:59 12/22/16 04:59 12/30/16 08:59 WBC 8.1 RBC 3.40 L Hgb 10.2 L Hct 32.0 L MCV 94 MCH 30.1 MCHC 32.0 RDW 17.2 H Plt Count 313 12/03/16 12/03/16 12/03/16 06:20 06:20 12:02 Creatine Kinase < 20 L < 20 L CK-MB (CK-2) 0.55 Troponin I 0.028 NT-Pro-B Natriuret Pep 12/03/16 12/03/16 12/03/16 12:02 18:20 18:20 Creatine Kinase < 20 L CK-MB (CK-2) 0.47 0.32 Troponin I 0.018 0.016 NT-Pro-B Natriuret Pep 12/04/16 12/09/16 04:31 05:13 Creatine Kinase CK-MB (CK-2) Troponin I NT-Pro-B Natriuret Pep 69379 H 6320 H Impressions: Chest X-Ray 12/06/16 00:00 IMPRESSION: NO CHANGE IN APPEARANCE OF THE CHEST. Hand X-Ray 12/26/16 00:00 IMPRESSION: 3rd finger soft tissue swelling without fracture, radiopaque foreign body or soft tissue gas. Multifocal osteoarthritis Assessment & Plan - Diagnosis (1) Acute and chronic respiratory failure ([id number]) Qualifiers: Respiratory failure complication: hypoxia and hypercapnia Qualified Code(s): J96.21 - Acute and chronic respiratory failure with hypoxia Is this a current diagnosis for this admission?: YesPlan: She has acute on chronic hypoxic and hypercapnic respiratory failure. Currently with trilogy support. The discharge planners are working on disposition. At this point Dr. Chowdary indicated that she could go out on BiPAP support however she would be at high risk of readmission. He wrote setting in his note two days ago. (2) COPD with acute exacerbation Is this a current diagnosis for this admission?: NoPlan: Her acute exacerbation is resolved (3) Chronic kidney disease (CKD) stage G3a/A1, moderately decreased glomerular filtration rate (GFR) between 45-59 mL/min/1.73 square meter and albuminuria creatinine ratio less than 30 mg/g Is this a current diagnosis for this admission?: YesPlan: Stable (4) Obesity hypoventilation syndrome Is this a current diagnosis for this admission?: YesPlan: She needs trilogy but will likely have to be discharged on BiPAP. Dr. Chowdary is following. (5) Pleural effusion Plan: Stable (6) Cor pulmonale (chronic) Plan: Currently not decompensated. (7) Moderate to severe pulmonary hypertension Plan: The patient needs trilogy at this point. (8) Physical deconditioning Plan: Ultimately the patient will be discharged to subacute rehabilitation - Time Time Spent with patient: 15-24 minutes Disposition: Inpatient hospitalization remains necessary for disposition. The patient is at high risk for readmission if she goes out on BiPAP therapy. Efforts are being made to get her to a facility for rehab with trilogy.
--- NOTE | 2016-12-30 16:44 | PDOC PROGRESS REPORT ---
Subjective Progress Note for:: 12/30/16 Subjective:: Awake and alert Physical Exam Vital Signs: Temp Pulse Resp BP Pulse Ox 98.3 F 66 16 125/57 L 99 12/30/16 11:54 12/30/16 12:00 12/30/16 12:00 12/30/16 11:54 12/30/16 11:54 Intake & Output 12/29/16 12/30/16 12/31/16 06:59 06:59 06:59 Intake Total 684 860 Output Total 850 0 Balance -166 860 Weight 115 kg 116 kg General appearance: PRESENT: no acute distress, cooperative, disheveled, morbidly obese, well-developed Head exam: PRESENT: atraumatic, normocephalic Eye exam: PRESENT: conjunctiva pale, EOMI Mouth exam: PRESENT: dry mucosa, neck supple Neck exam: ABSENT: carotid bruit, JVD, lymphadenopathy, thyromegaly Respiratory exam: PRESENT: decreased breath sounds, prolonged expiratory phas, rhonchi Cardiovascular exam: PRESENT: RRR, +S1, +S2 Pulses: PRESENT: normal radial pulses GI/Abdominal exam: PRESENT: normal bowel sounds, soft. ABSENT: distended, guarding, mass, organolmegaly, rebound, tenderness Rectal exam: PRESENT: deferred Extremities exam: PRESENT: +1 edema Neurological exam: PRESENT: alert, awake Psychiatric exam: PRESENT: normal mood Skin exam: PRESENT: dry, warm Results Laboratory Results: 12/30/16 08:59 12/22/16 04:59 12/30/16 08:59 WBC 8.1 RBC 3.40 L Hgb 10.2 L Hct 32.0 L MCV 94 MCH 30.1 MCHC 32.0 RDW 17.2 H Plt Count 313 12/03/16 12/03/16 12/03/16 06:20 06:20 12:02 Creatine Kinase < 20 L < 20 L CK-MB (CK-2) 0.55 Troponin I 0.028 NT-Pro-B Natriuret Pep 12/03/16 12/03/16 12/03/16 12:02 18:20 18:20 Creatine Kinase < 20 L CK-MB (CK-2) 0.47 0.32 Troponin I 0.018 0.016 NT-Pro-B Natriuret Pep 12/04/16 12/09/16 04:31 05:13 Creatine Kinase CK-MB (CK-2) Troponin I NT-Pro-B Natriuret Pep 49253 H 6320 H Impressions: Chest X-Ray 12/06/16 00:00 IMPRESSION: NO CHANGE IN APPEARANCE OF THE CHEST. Hand X-Ray 12/26/16 00:00 IMPRESSION: 3rd finger soft tissue swelling without fracture, radiopaque foreign body or soft tissue gas. Multifocal osteoarthritis Assessment & Plan - Diagnosis (1) COPD with acute exacerbation Is this a current diagnosis for this admission?: No (2) Hypoxia Is this a current diagnosis for this admission?: Yes (3) Obesity hypoventilation syndrome Is this a current diagnosis for this admission?: Yes (4) Acute and chronic respiratory failure with hypercapnia Is this a current diagnosis for this admission?: Yes (5) Obstructive sleep apnea Is this a current diagnosis for this admission?: Yes (6) Tobacco dependency Is this a current diagnosis for this admission?: Yes
--- NOTE | 2016-12-30 16:47 | PDOC PROGRESS REPORT ---
Subjective Progress Note for:: 12/29/16 Subjective:: Awake and alert;Wearing her NIPPV mask Physical Exam Vital Signs: Temp Pulse Resp BP Pulse Ox 98.5 F 62 18 130/62 H 95 12/29/16 07:53 12/29/16 07:53 12/29/16 07:53 12/29/16 07:53 12/29/16 07:53 Intake & Output 12/28/16 12/29/16 12/30/16 06:59 06:59 06:59 Intake Total 690 684 Output Total 850 Balance 690 -166 Weight 114.2 kg 115 kg General appearance: PRESENT: no acute distress, cooperative, disheveled, morbidly obese, well-developed Head exam: PRESENT: atraumatic, normocephalic Eye exam: PRESENT: conjunctiva pale, EOMI Mouth exam: PRESENT: dry mucosa, neck supple Neck exam: ABSENT: carotid bruit, JVD, lymphadenopathy, thyromegaly Respiratory exam: PRESENT: decreased breath sounds, prolonged expiratory phas, rhonchi, symmetrical Cardiovascular exam: PRESENT: RRR, +S1, +S2 Pulses: PRESENT: normal radial pulses GI/Abdominal exam: PRESENT: normal bowel sounds, soft. ABSENT: distended, guarding, mass, organolmegaly, rebound, tenderness Rectal exam: PRESENT: deferred Extremities exam: PRESENT: +1 edema Neurological exam: PRESENT: alert, awake Psychiatric exam: PRESENT: normal mood Skin exam: PRESENT: dry, warm Results Laboratory Results: 12/21/16 05:01 12/22/16 04:59 12/03/16 12/03/16 12/03/16 06:20 06:20 12:02 Creatine Kinase < 20 L < 20 L CK-MB (CK-2) 0.55 Troponin I 0.028 NT-Pro-B Natriuret Pep 12/03/16 12/03/16 12/03/16 12:02 18:20 18:20 Creatine Kinase < 20 L CK-MB (CK-2) 0.47 0.32 Troponin I 0.018 0.016 NT-Pro-B Natriuret Pep 12/04/16 12/09/16 04:31 05:13 Creatine Kinase CK-MB (CK-2) Troponin I NT-Pro-B Natriuret Pep 15786 H 6320 H Impressions: Chest X-Ray 12/06/16 00:00 IMPRESSION: NO CHANGE IN APPEARANCE OF THE CHEST. Hand X-Ray 12/26/16 00:00 IMPRESSION: 3rd finger soft tissue swelling without fracture, radiopaque foreign body or soft tissue gas. Multifocal osteoarthritis Assessment & Plan - Diagnosis (1) COPD with acute exacerbation Is this a current diagnosis for this admission?: No (2) Hypoxia Is this a current diagnosis for this admission?: Yes (3) Obesity hypoventilation syndrome Is this a current diagnosis for this admission?: Yes (4) Acute and chronic respiratory failure with hypercapnia Is this a current diagnosis for this admission?: Yes (5) Obstructive sleep apnea Is this a current diagnosis for this admission?: Yes (6) Tobacco dependency Is this a current diagnosis for this admission?: Yes
[2016-12-30] MEDS: IPRATROPIUM/ALBUTEROL 0.5-2.5 MG/3 ML AMPUL NEB PRN (17:05)
[2016-12-30] MEDS: ATORVASTATIN CALCIUM 40 MG TABLET PO SCH (21:35)
[2016-12-31] MEDS: IPRATROPIUM/ALBUTEROL 0.5-2.5 MG/3 ML AMPUL NEB SCH ×5 (04:12→20:26)
[2016-12-31 05:36] LABS: ANION GAP 14 (5-19); BLOOD UREA NITROGEN 22 mg/dL (7-20); CALCIUM 9.5 mg/dL (8.4-10.2); CARBON DIOXIDE 26 mmol/L (22-30); CHLORIDE 102 mmol/L (98-107); CREATININE RESULT 1.07 mg/dL (0.52-1.25); GLUCOSE 93 mg/dL (75-110); MAGNESIUM 1.8 mg/dL (1.6-2.3); POTASSIUM 3.7 mmol/L (3.6-5.0); SODIUM 141.8 mmol/L (137-145)
[2016-12-31] MEDS: HEPARIN SOD (PORCINE) 5,000 UNIT/ML 1 ML SYRINGE SUBCUT SCH ×3 (06:52→22:07)
[2016-12-31] MEDS: LEVOTHYROXINE SODIUM 0.15 MG TABLET PO SCH (06:52)
[2016-12-31] MEDS: SILDENAFIL CITRATE 20 MG TABLET PO SCH ×3 (08:13→17:10)
--- NOTE | 2016-12-31 09:20 | PDOC PROGRESS REPORT ---
Subjective Progress Note for:: 12/31/16 Subjective:: The patient is resting in her bed. She slept well last night and is having no issues this morning. She denies fever chills. She is not acutely short of breath at this point. She has not had chest pain or heart palpitations. No nausea, vomiting or diarrhea. She is having bowel movements. She reports no dysuria, frequency or hematuria. Physical Exam Vital Signs: Temp Pulse Resp BP Pulse Ox 98.5 F 57 L 20 122/55 L 97 12/31/16 07:21 12/31/16 07:21 12/31/16 07:21 12/31/16 07:21 12/31/16 07:21 Intake & Output 12/30/16 12/31/16 01/01/17 06:59 06:59 06:59 Intake Total 860 700 Output Total 0 1100 Balance 860 -400 Weight 116 kg 110.6 kg General appearance: PRESENT: no acute distress, well-developed, well-nourished Head exam: PRESENT: atraumatic, normocephalic Mouth exam: PRESENT: moist, tongue midline Neck exam: ABSENT: carotid bruit, JVD, lymphadenopathy, thyromegaly Respiratory exam: PRESENT: decreased breath sounds, other - She is somewhat diminished in the lower bases bilaterally. ABSENT: rales, rhonchi, wheezes Cardiovascular exam: PRESENT: RRR. ABSENT: diastolic murmur, rubs, systolic murmur GI/Abdominal exam: PRESENT: normal bowel sounds, soft. ABSENT: distended, guarding, mass, organolmegaly, rebound, tenderness Extremities exam: PRESENT: full ROM. ABSENT: calf tenderness, clubbing, pedal edema Musculoskeletal exam: ABSENT: ambulatory Neurological exam: PRESENT: alert, awake, oriented to person, oriented to place , oriented to time, oriented to situation, CN II-XII grossly intact. ABSENT: motor sensory deficit Psychiatric exam: PRESENT: appropriate affect, normal mood. ABSENT: homicidal ideation, suicidal ideation Skin exam: PRESENT: dry, intact, warm. ABSENT: cyanosis, rash Results Laboratory Results: 12/30/16 08:59 12/31/16 04:48 12/30/16 12/31/16 08:59 04:48 WBC 8.1 RBC 3.40 L Hgb 10.2 L Hct 32.0 L MCV 94 MCH 30.1 MCHC 32.0 RDW 17.2 H Plt Count 313 Sodium 141.8 Potassium 3.7 Chloride 102 Carbon Dioxide 26 Anion Gap 14 BUN 22 H Creatinine 1.07 Est GFR ( Amer) > 60 Est GFR (Non-Af Amer) 51 L Glucose 93 Calcium 9.5 Magnesium 1.8 12/03/16 12/03/16 12/03/16 06:20 06:20 12:02 Creatine Kinase < 20 L < 20 L CK-MB (CK-2) 0.55 Troponin I 0.028 NT-Pro-B Natriuret Pep 12/03/16 12/03/16 12/03/16 12:02 18:20 18:20 Creatine Kinase < 20 L CK-MB (CK-2) 0.47 0.32 Troponin I 0.018 0.016 NT-Pro-B Natriuret Pep 12/04/16 12/09/16 04:31 05:13 Creatine Kinase CK-MB (CK-2) Troponin I NT-Pro-B Natriuret Pep 31742 H 6320 H Impressions: Chest X-Ray 12/06/16 00:00 IMPRESSION: NO CHANGE IN APPEARANCE OF THE CHEST. Hand X-Ray 12/26/16 00:00 IMPRESSION: 3rd finger soft tissue swelling without fracture, radiopaque foreign body or soft tissue gas. Multifocal osteoarthritis Assessment & Plan - Diagnosis (1) Acute and chronic respiratory failure ([id number]) Qualifiers: Respiratory failure complication: hypoxia and hypercapnia Qualified Code(s): J96.21 - Acute and chronic respiratory failure with hypoxia Is this a current diagnosis for this admission?: YesPlan: The patient has hypoxic and hypercapnic respiratory failure. The patient's oxygen saturations are normal receiving oxygen via nasal cannula. She continues to use trilogy at night. Overall she is doing quite well. Her acute respiratory failure has resolved. Her respiratory failure is due to obesity hypoventilation syndrome, cor pulmonale and chronic hypercapnia. (2) COPD with acute exacerbation Is this a current diagnosis for this admission?: NoPlan: Her acute exacerbation is resolved. She is having no issues at this point. (3) Chronic kidney disease (CKD) stage G3a/A1, moderately decreased glomerular filtration rate (GFR) between 45-59 mL/min/1.73 square meter and albuminuria creatinine ratio less than 30 mg/g Is this a current diagnosis for this admission?: YesPlan: Stable (4) Obesity hypoventilation syndrome Is this a current diagnosis for this admission?: YesPlan: She needs trilogy but will likely have to be discharged on BiPAP. I am going to try to touch base with care coordinators today. Dr. Chowdary is following. (5) Pleural effusion Plan: Stable (6) Cor pulmonale (chronic) Plan: Currently she is compensated. (7) Moderate to severe pulmonary hypertension Plan: The patient needs trilogy at this point. She is at her baseline. (8) Physical deconditioning Plan: Ultimately the patient will be discharged to subacute rehabilitation. I will touch base with the discharge planners on where we are with the process of obtaining trilogy for the patient. - Time Time Spent with patient: 15-24 minutes Disposition: Inpatient hospitalization remains necessary for disposition. The patient is stable for discharge as soon as we figure out her disposition plans. The discharge planners are working hard on this.
[2016-12-31] MEDS: SPIRONOLACTONE 25 MG TABLET PO SCH (10:08)
[2016-12-31] MEDS: DOCUSATE SODIUM 100 MG CAPSULE PO SCH ×2 (10:09→17:09)
[2016-12-31] MEDS: THIAMINE HCL 100 MG TABLET PO SCH (10:09)
[2016-12-31] MEDS: MIDODRINE HCL 5 MG TABLET PO SCH ×3 (10:09→17:10)
[2016-12-31] MEDS: GABAPENTIN 300 MG CAPSULE PO SCH ×2 (10:09→22:07)
[2016-12-31] MEDS: GUAIFENESIN 600 MG TABLET.SA PO SCH ×2 (10:09→22:07)
[2016-12-31] MEDS: BUMETANIDE 1 MG TABLET PO SCH (10:09)
[2016-12-31] MEDS: MAGNESIUM OXIDE 400 MG TABLET PO SCH (10:09)
--- NOTE | 2016-12-31 15:06 | PDOC PROGRESS REPORT ---
Subjective Progress Note for:: 12/31/16 Subjective:: Patient excited about the prospect of going to LTAC Physical Exam Vital Signs: Temp Pulse Resp BP Pulse Ox 98.5 F 62 18 122/55 L 95 12/31/16 07:21 12/31/16 12:24 12/31/16 12:24 12/31/16 07:21 12/31/16 12:24 Intake & Output 12/30/16 12/31/16 01/01/17 06:59 06:59 06:59 Intake Total 860 700 Output Total 0 1100 Balance 860 -400 Weight 116 kg 110.6 kg General appearance: PRESENT: no acute distress, cooperative, disheveled, morbidly obese, well-developed Head exam: PRESENT: atraumatic, normocephalic Eye exam: PRESENT: conjunctiva pale, EOMI Mouth exam: PRESENT: dry mucosa, neck supple, tongue midline Neck exam: ABSENT: carotid bruit, JVD, lymphadenopathy, thyromegaly Respiratory exam: PRESENT: decreased breath sounds, prolonged expiratory phas, rales, rhonchi, symmetrical Cardiovascular exam: PRESENT: RRR, +S1, +S2 Pulses: PRESENT: normal radial pulses GI/Abdominal exam: PRESENT: normal bowel sounds, soft. ABSENT: distended, guarding, mass, organolmegaly, rebound, tenderness Rectal exam: PRESENT: deferred Extremities exam: PRESENT: +1 edema Neurological exam: PRESENT: alert, awake Psychiatric exam: PRESENT: normal mood Skin exam: PRESENT: dry, warm Results Laboratory Results: 12/30/16 08:59 12/31/16 04:48 12/31/16 04:48 Sodium 141.8 Potassium 3.7 Chloride 102 Carbon Dioxide 26 Anion Gap 14 BUN 22 H Creatinine 1.07 Est GFR ( Amer) > 60 Est GFR (Non-Af Amer) 51 L Glucose 93 Calcium 9.5 Magnesium 1.8 12/03/16 12/03/16 12/03/16 06:20 06:20 12:02 Creatine Kinase < 20 L < 20 L CK-MB (CK-2) 0.55 Troponin I 0.028 NT-Pro-B Natriuret Pep 12/03/16 12/03/16 12/03/16 12:02 18:20 18:20 Creatine Kinase < 20 L CK-MB (CK-2) 0.47 0.32 Troponin I 0.018 0.016 NT-Pro-B Natriuret Pep 12/04/16 12/09/16 04:31 05:13 Creatine Kinase CK-MB (CK-2) Troponin I NT-Pro-B Natriuret Pep 91610 H 6320 H Impressions: Chest X-Ray 12/06/16 00:00 IMPRESSION: NO CHANGE IN APPEARANCE OF THE CHEST. Hand X-Ray 12/26/16 00:00 IMPRESSION: 3rd finger soft tissue swelling without fracture, radiopaque foreign body or soft tissue gas. Multifocal osteoarthritis Assessment & Plan - Diagnosis (1) COPD with acute exacerbation Is this a current diagnosis for this admission?: No (2) Hypoxia Is this a current diagnosis for this admission?: Yes (3) Obesity hypoventilation syndrome Is this a current diagnosis for this admission?: Yes (4) Acute and chronic respiratory failure with hypercapnia Is this a current diagnosis for this admission?: Yes (5) Obstructive sleep apnea Is this a current diagnosis for this admission?: Yes (6) Tobacco dependency Is this a current diagnosis for this admission?: Yes
[2016-12-31] MEDS: ACETAMINOPHEN 325 MG TABLET PO PRN ×2 (17:09→22:07)
[2016-12-31] MEDS: ATORVASTATIN CALCIUM 40 MG TABLET PO SCH (22:07)
[2017-01-01] MEDS: IPRATROPIUM/ALBUTEROL 0.5-2.5 MG/3 ML AMPUL NEB SCH ×6 (00:01→19:31)
[2017-01-01] MEDS: HEPARIN SOD (PORCINE) 5,000 UNIT/ML 1 ML SYRINGE SUBCUT SCH ×3 (06:28→22:10)
[2017-01-01] MEDS: LEVOTHYROXINE SODIUM 0.15 MG TABLET PO SCH (06:28)
[2017-01-01 08:38] LABS: HEMATOCRIT 32.5 % (36.0-47.0); HEMOGLOBIN 10.5 g/dL (12.0-15.5); MEAN CORPUSCULAR HEMOGLOBIN 29.9 pg (27.0-33.4); MEAN CORPUSCULAR HGB CONC 32.3 g/dL (32.0-36.0); MEAN CORPUSCULAR VOLUME 93 fl (80-97); RED BLOOD COUNT 3.51 10^6/uL (3.72-5.28); RED CELL DISTRIBUTION WIDTH 16.9 % (11.5-14.0); WHITE BLOOD COUNT 7.7 10^3/uL (4.0-10.5)
[2017-01-01] MEDS: BUMETANIDE 1 MG TABLET PO SCH (09:37)
[2017-01-01] MEDS: GUAIFENESIN 600 MG TABLET.SA PO SCH ×2 (09:38→22:11)
[2017-01-01] MEDS: MIDODRINE HCL 5 MG TABLET PO SCH ×3 (09:38→17:57)
[2017-01-01] MEDS: SPIRONOLACTONE 25 MG TABLET PO SCH (09:38)
[2017-01-01] MEDS: THIAMINE HCL 100 MG TABLET PO SCH (09:38)
[2017-01-01] MEDS: GABAPENTIN 300 MG CAPSULE PO SCH ×2 (09:38→22:11)
[2017-01-01] MEDS: MAGNESIUM OXIDE 400 MG TABLET PO SCH (09:38)
[2017-01-01] MEDS: SILDENAFIL CITRATE 20 MG TABLET PO SCH ×3 (09:40→17:23)
[2017-01-01] MEDS: DOCUSATE SODIUM 100 MG CAPSULE PO SCH ×2 (09:42→17:23)
[2017-01-01] MEDS: ACETAMINOPHEN 325 MG TABLET PO PRN (22:11)
[2017-01-01] MEDS: ATORVASTATIN CALCIUM 40 MG TABLET PO SCH (22:11)
[2017-01-02] MEDS: IPRATROPIUM/ALBUTEROL 0.5-2.5 MG/3 ML AMPUL NEB SCH ×6 (04:27→23:49)
[2017-01-02] MEDS: LEVOTHYROXINE SODIUM 0.15 MG TABLET PO SCH (06:14)
[2017-01-02 06:33] LABS: ANION GAP 13 (5-19); BLOOD UREA NITROGEN 21 mg/dL (7-20); CALCIUM 9.5 mg/dL (8.4-10.2); CARBON DIOXIDE 25 mmol/L (22-30); CHLORIDE 103 mmol/L (98-107); CREATININE RESULT 1.05 mg/dL (0.52-1.25); GLUCOSE 91 mg/dL (75-110); MAGNESIUM 1.9 mg/dL (1.6-2.3); POTASSIUM 3.6 mmol/L (3.6-5.0); SODIUM 140.5 mmol/L (137-145)
[2017-01-02 07:48] LABS: HEMOGLOBIN 10.3 g/dL (12.0-15.5); HGB HCT DIFFERENCE -1.1; MEAN CORPUSCULAR HEMOGLOBIN 30.2 pg (27.0-33.4); MEAN CORPUSCULAR HGB CONC 32.2 g/dL (32.0-36.0); MEAN CORPUSCULAR VOLUME 94 fl (80-97); RED BLOOD COUNT 3.42 10^6/uL (3.72-5.28); RED CELL DISTRIBUTION WIDTH 16.9 % (11.5-14.0); WHITE BLOOD COUNT 8.6 10^3/uL (4.0-10.5)
[2017-01-02] MEDS ORDERED: ACETAMINOPHEN 325 MG TABLET ONE (09:47)
[2017-01-02] MEDS: SPIRONOLACTONE 25 MG TABLET PO SCH (09:49)
[2017-01-02] MEDS: BUMETANIDE 1 MG TABLET PO SCH (09:51)
[2017-01-02] MEDS: GUAIFENESIN 600 MG TABLET.SA PO SCH ×2 (09:52→21:22)
[2017-01-02] MEDS: MAGNESIUM OXIDE 400 MG TABLET PO SCH (09:52)
[2017-01-02] MEDS: GABAPENTIN 300 MG CAPSULE PO SCH ×2 (09:52→21:22)
--- NOTE | 2017-01-02 10:15 | PDOC PROGRESS REPORT ---
Subjective Progress Note for:: 01/02/17 Subjective:: The patient is a pleasant but unfortunate 71-year-old with a past medical history significant for diastolic congestive heart failure, severe pulmonary hypertension, atrial fibrillation, obstructive sleep apnea, cor pulmonale, morbid obesity associated with obesity hypoventilation syndrome. In addition she has a history of venous insufficiency, DVT and stage III chronic kidney disease. She has had a history of a GI bleed in the past as well. The patient was admitted to the hospital with a right upper lobe pneumonia as well as acute on chronic hypoxic and hypercapnic respiratory failure. She has had a prolonged hospitalization. She has been treated for her pneumonia as well as congestive heart failure. She has been followed closely by pulmonology and has been placed on trilogy machine. Her hospitalization has been prolonged due to not having a satisfactory disposition. Her trilogy machine has now been finally approved for LTAC. She currently has been referred to [facility] and we are hoping to get an answer whether they will accept her on Wednesday. Overall when I saw the patient this morning she was quite frustrated. Apparently several of her medications fell off the MAR due to her prolonged hospitalization. She felt like the nurse was not giving them to her when in fact there was no order. I have corrected this and she is quite pleased about this. She has a little bit of a headache today. She currently is sitting up in bed with oxygen in place. She is mentating and doing well. She denies fever chills overnight. No chest pain, no increase shortness of breath or heart palpitations. She is tolerating her diet. She has had no nausea, vomiting or diarrhea. No abdominal pain. No dysuria, frequency or hematuria. Physical Exam Vital Signs: Temp Pulse Resp BP Pulse Ox 98.7 F 76 18 120/60 93 01/02/17 00:00 01/02/17 04:25 01/02/17 04:25 01/02/17 00:00 01/02/17 00:00 Intake & Output 01/01/17 01/02/17 01/03/17 06:59 06:59 06:59 Intake Total 1030 740 Output Total 1000 Balance 30 740 Weight 110.5 kg 111.5 kg General appearance: PRESENT: no acute distress, cooperative, morbidly obese, well-developed, well-nourished Head exam: PRESENT: atraumatic, normocephalic Mouth exam: PRESENT: moist, tongue midline Respiratory exam: PRESENT: clear to auscultation flory, other - She has decreased breath sounds in the lower bases bilaterally. ABSENT: rales, rhonchi, wheezes Cardiovascular exam: PRESENT: RRR. ABSENT: diastolic murmur, rubs, systolic murmur GI/Abdominal exam: PRESENT: normal bowel sounds, soft. ABSENT: distended, guarding, mass, organolmegaly, rebound, tenderness Extremities exam: PRESENT: pedal edema. ABSENT: calf tenderness, clubbing, tenderness Neurological exam: PRESENT: alert, awake, oriented to person, oriented to place , oriented to time, oriented to situation, CN II-XII grossly intact. ABSENT: motor sensory deficit Psychiatric exam: PRESENT: appropriate affect, normal mood. ABSENT: homicidal ideation, suicidal ideation Skin exam: PRESENT: dry, intact, warm. ABSENT: cyanosis, rash Results Laboratory Results: 01/02/17 05:20 01/02/17 05:20 01/02/17 01/02/17 05:20 05:20 WBC 8.6 RBC 3.42 L Hgb 10.3 L Hct 32.0 L MCV 94 MCH 30.2 MCHC 32.2 RDW 16.9 H Plt Count 318 Sodium 140.5 Potassium 3.6 Chloride 103 Carbon Dioxide 25 Anion Gap 13 BUN 21 H Creatinine 1.05 Est GFR ( Amer) > 60 Est GFR (Non-Af Amer) 52 L Glucose 91 Calcium 9.5 Magnesium 1.9 12/03/16 12/03/16 12/03/16 06:20 06:20 12:02 Creatine Kinase < 20 L < 20 L CK-MB (CK-2) 0.55 Troponin I 0.028 NT-Pro-B Natriuret Pep 12/03/16 12/03/16 12/03/16 12:02 18:20 18:20 Creatine Kinase < 20 L CK-MB (CK-2) 0.47 0.32 Troponin I 0.018 0.016 NT-Pro-B Natriuret Pep 12/04/16 12/09/16 04:31 05:13 Creatine Kinase CK-MB (CK-2) Troponin I NT-Pro-B Natriuret Pep [id number] H 6320 H Impressions: Chest X-Ray 12/06/16 00:00 IMPRESSION: NO CHANGE IN APPEARANCE OF THE CHEST. Hand X-Ray 12/26/16 00:00 IMPRESSION: 3rd finger soft tissue swelling without fracture, radiopaque foreign body or soft tissue gas. Multifocal osteoarthritis Assessment & Plan - Diagnosis (1) Acute and chronic respiratory failure ([id number]) Qualifiers: Respiratory failure complication: hypoxia and hypercapnia Qualified Code(s): J96.21 - Acute and chronic respiratory failure with hypoxia Is this a current diagnosis for this admission?: YesPlan: The patient has hypoxic and hypercapnic respiratory failure which has largely stabilized. The patient's oxygen saturations are normal while receiving oxygen via nasal cannula. She continues to use trilogy at night. Overall she is doing quite well. Her acute respiratory failure has resolved. Her respiratory failure is due to obesity hypoventilation syndrome, cor pulmonale and chronic hypercapnia. (2) COPD with acute exacerbation Is this a current diagnosis for this admission?: NoPlan: Her acute exacerbation is resolved. She is having no issues at this point. (3) Chronic kidney disease (CKD) stage G3a/A1, moderately decreased glomerular filtration rate (GFR) between 45-59 mL/min/1.73 square meter and albuminuria creatinine ratio less than 30 mg/g Is this a current diagnosis for this admission?: YesPlan: Stable (4) Obesity hypoventilation syndrome Is this a current diagnosis for this admission?: YesPlan: Dr. Chwodary is following. She currently has a trilogy machine which has finally been accepted at an LTAC. She has been referred to [facility] and hopefully we will hear something on Wednesday. (5) Pleural effusion Plan: Stable (6) Cor pulmonale (chronic) Plan: Currently she is compensated. (7) Moderate to severe pulmonary hypertension Plan: The patient needs trilogy at this point. She is at her baseline. (8) Physical deconditioning Plan: Ultimately the patient will be discharged to an LTAC. Hopefully that will be sometime next week. - Time Time Spent with patient: 15-24 minutes Disposition: Inpatient hospitalization remains necessary for disposition. Hopefully we will hear from [facility] on Wednesday and she can be transitioned to their facility sometime next week.
[2017-01-02] MEDS ORDERED: MAG HYDROX/AL HYDROX/SIMETH SUSP 30 ML UDCUP PO PRN (10:28)
[2017-01-02] MEDS ORDERED: MAGNESIUM HYDROXIDE SUSP 30 ML UDCUP PO PRN (10:29)
[2017-01-02] MEDS ORDERED: IPRATROPIUM/ALBUTEROL 0.5-2.5 MG/3 ML AMPUL NEB PRN (10:29)
[2017-01-02] MEDS: SILDENAFIL CITRATE 20 MG TABLET PO SCH ×2 (11:45→18:03)
[2017-01-02] MEDS: MIDODRINE HCL 5 MG TABLET PO SCH ×2 (14:35→18:03)
[2017-01-02] MEDS: HEPARIN SOD (PORCINE) 5,000 UNIT/ML 1 ML SYRINGE SUBCUT SCH ×2 (14:36→21:22)
[2017-01-02] MEDS: DOCUSATE SODIUM 100 MG CAPSULE PO SCH (18:03)
[2017-01-02] MEDS: ATORVASTATIN CALCIUM 40 MG TABLET PO SCH (21:22)
[2017-01-02] MEDS: ACETAMINOPHEN 325 MG TABLET PO PRN (22:28)
[2017-01-03] MEDS: IPRATROPIUM/ALBUTEROL 0.5-2.5 MG/3 ML AMPUL NEB SCH ×5 (04:08→19:51)
[2017-01-03 05:17] LABS: ANION GAP 14 (5-19); BLOOD UREA NITROGEN 20 mg/dL (7-20); CALCIUM 9.6 mg/dL (8.4-10.2); CARBON DIOXIDE 25 mmol/L (22-30); CHLORIDE 103 mmol/L (98-107); GLUCOSE 101 mg/dL (75-110); MAGNESIUM 1.9 mg/dL (1.6-2.3); POTASSIUM 3.7 mmol/L (3.6-5.0); SODIUM 141.5 mmol/L (137-145)
[2017-01-03] MEDS: HEPARIN SOD (PORCINE) 5,000 UNIT/ML 1 ML SYRINGE SUBCUT SCH ×3 (06:07→21:08)
[2017-01-03] MEDS: BUMETANIDE 1 MG TABLET PO SCH (10:20)
[2017-01-03] MEDS: SILDENAFIL CITRATE 20 MG TABLET PO SCH ×3 (10:21→17:47)
[2017-01-03] MEDS: MIDODRINE HCL 5 MG TABLET PO SCH ×3 (10:21→17:47)
[2017-01-03] MEDS: THIAMINE HCL 100 MG TABLET PO SCH (10:21)
[2017-01-03] MEDS: GABAPENTIN 300 MG CAPSULE PO SCH ×2 (10:21→21:08)
[2017-01-03] MEDS: GUAIFENESIN 600 MG TABLET.SA PO SCH (10:21)
[2017-01-03] MEDS: MAGNESIUM OXIDE 400 MG TABLET PO SCH (10:21)
[2017-01-03] MEDS: DOCUSATE SODIUM 100 MG CAPSULE PO SCH ×2 (10:22→17:47)
[2017-01-03] MEDS: ACETAMINOPHEN 325 MG TABLET PO PRN ×2 (10:24→17:49)
--- NOTE | 2017-01-03 11:38 | PROGRESS NOTE E ---
Progress Note NAME: MARIANO HENRY : 1945 AGE: 71Y DATE: 01/03/2017 ROOM: 409 SUBJECTIVE: The patient is lying in bed. She states that she feels good today, much better than when she came in, no different than yesterday though. The patient denies any nausea, vomiting, diarrhea. No dizziness or chest pain. Shortness of breath is much improved. The patient denies any fevers or chills. The patient does not voice any other concerns at this time. REVIEW OF SYSTEMS: Rest of the review of systems negative. MEDICATIONS: Have been reviewed. PHYSICAL EXAMINATION: GENERAL: The patient is a 71-year-old female who is awake and alert. She is oriented to person, place, time, and situation. She is verbal, conversational, and does not appear to be in any acute distress. VITAL SIGNS: Temperature 98.0, pulse 68, respirations 18, blood pressure 129/54, oxygen saturation is 94% on 4 L nasal cannula. SKIN: Warm and dry. No rash. Not diaphoretic. HEENT: Pupils equal, round, reactive to light and accommodation. Conjunctivae are pink. No JVP. CARDIOVASCULAR: Heart is regular with no murmur or rub. CHEST: Symmetrical, unlabored, diminished . ABDOMEN: Soft, obese. Bowel sounds are present. BACK: No CVA tenderness or sacral edema. EXTREMITIES: No clubbing, cyanosis, or pitting edema. PSYCHIATRIC: Appropriate affect. Pleasant mood. DIAGNOSTICS: Lab values are as follows: Hematology obtained on 01/02/2017: WBCs are 8.6, hemoglobin is 10.3, hematocrit is 32.0, platelet count is 318,000. Chemistry obtained on 01/03/2017: Sodium is 141, potassium 2.7, chloride is 103, carbon dioxide 25, BUN 20, creatinine is 1.1, glucose 101, calcium is 9.6, magnesium is 1.9. IMPRESSION AND PLAN: 1. CHRONIC OBSTRUCTIVE PULMONARY DISEASE EXACERBATION. The acute exacerbation has resolved. The patient is on her chronic medications. 2. [id number] HYPOXEMIC AND HYPERCAPNIC RESPIRATORY FAILURE. This has largely been stabilized. The patient's O2 sats are normal while she is on nasal cannula. Continue to use Trilogy at night. Overall is doing well. The patient is currently waiting a LTAC bed. Her respiratory failure is indeed due to obesity hypoventilation syndrome, cor pulmonale, and chronic hypercapnia. 3. CHRONIC KIDNEY DISEASE STAGE III. Overall stable. 4. OBESITY HYPOVENTILATION SYNDROME. The patient hopefully will receive a LTAC bed. Awaiting to here something from this on Wednesday. Do appreciate Dr. Chowdary's input with the Trilogy machine. 5. PLEURAL EFFUSION, STABLE. 6. COR PULMONALE, CURRENTLY COMPENSATED. 7. MODERATE TO SEVERE PULMONARY HYPERTENSION. Patient is at her baseline. 8. PHYSICALLY DECONDITIONED. The patient will go to a LTAC. DISPOSITION: The patient is a DO NOT RESUSCITATE/DO NOT INTUBATE. Pending patient's symptomatology and diagnostic findings, hopefully the patient can go to a LTAC in the a.m. Time spent on this followup including assessment, plan, physical examination, patient education, and review of records is 25 minutes. DICTATING PHYSICIAN: NATALIA ABBASI NP [id number] PHY#: [id number] ID: [id number] JOB#: [id number] ACCT: [id number] cc: >
[2017-01-03] MEDS: ATORVASTATIN CALCIUM 40 MG TABLET PO SCH (21:08)
[2017-01-04] MEDS: IPRATROPIUM/ALBUTEROL 0.5-2.5 MG/3 ML AMPUL NEB SCH ×6 (00:06→19:39)
[2017-01-04] MEDS: HEPARIN SOD (PORCINE) 5,000 UNIT/ML 1 ML SYRINGE SUBCUT SCH ×3 (05:12→21:09)
[2017-01-04] MEDS: ACETAMINOPHEN 325 MG TABLET PO PRN ×2 (06:52→16:17)
[2017-01-04] MEDS: MIDODRINE HCL 5 MG TABLET PO SCH ×3 (09:10→17:13)
[2017-01-04] MEDS: SILDENAFIL CITRATE 20 MG TABLET PO SCH ×3 (09:10→16:17)
[2017-01-04] MEDS: MAGNESIUM OXIDE 400 MG TABLET PO SCH (09:10)
[2017-01-04] MEDS: DOCUSATE SODIUM 100 MG CAPSULE PO SCH ×2 (09:11→17:13)
[2017-01-04] MEDS: THIAMINE HCL 100 MG TABLET PO SCH (09:11)
[2017-01-04] MEDS: GABAPENTIN 300 MG CAPSULE PO SCH ×2 (09:11→21:09)
--- NOTE | 2017-01-04 12:24 | PDOC PROGRESS REPORT ---
Subjective Progress Note for:: 01/01/17 Subjective:: Patient excited about the prospect of going to LTAC Physical Exam Vital Signs: Temp Pulse Resp BP Pulse Ox 98.7 F 76 18 120/60 93 01/02/17 00:00 01/02/17 04:25 01/02/17 04:25 01/02/17 00:00 01/02/17 00:00 Intake & Output 01/01/17 01/02/17 01/03/17 06:59 06:59 06:59 Intake Total 1030 740 Output Total 1000 Balance 30 740 Weight 110.5 kg 111.5 kg General appearance: PRESENT: no acute distress, cooperative, disheveled, morbidly obese Head exam: PRESENT: atraumatic, normocephalic Eye exam: PRESENT: conjunctiva pale, EOMI Mouth exam: PRESENT: dry mucosa, neck supple, tongue midline Neck exam: ABSENT: carotid bruit, JVD, lymphadenopathy, thyromegaly Respiratory exam: PRESENT: decreased breath sounds, prolonged expiratory phas, rhonchi, unlabored Cardiovascular exam: PRESENT: RRR, +S1, +S2 Pulses: PRESENT: normal radial pulses GI/Abdominal exam: PRESENT: normal bowel sounds, soft. ABSENT: distended, guarding, mass, organolmegaly, rebound, tenderness Rectal exam: PRESENT: deferred Musculoskeletal exam: PRESENT: normal inspection Neurological exam: PRESENT: alert, awake Psychiatric exam: PRESENT: normal mood Skin exam: PRESENT: dry, warm Results Laboratory Results: 01/02/17 05:20 01/02/17 05:20 01/02/17 01/02/17 05:20 05:20 WBC 8.6 RBC 3.42 L Hgb 10.3 L Hct 32.0 L MCV 94 MCH 30.2 MCHC 32.2 RDW 16.9 H Plt Count 318 Sodium 140.5 Potassium 3.6 Chloride 103 Carbon Dioxide 25 Anion Gap 13 BUN 21 H Creatinine 1.05 Est GFR ( Amer) > 60 Est GFR (Non-Af Amer) 52 L Glucose 91 Calcium 9.5 Magnesium 1.9 12/03/16 12/03/16 12/03/16 06:20 06:20 12:02 Creatine Kinase < 20 L < 20 L CK-MB (CK-2) 0.55 Troponin I 0.028 NT-Pro-B Natriuret Pep 12/03/16 12/03/16 12/03/16 12:02 18:20 18:20 Creatine Kinase < 20 L CK-MB (CK-2) 0.47 0.32 Troponin I 0.018 0.016 NT-Pro-B Natriuret Pep 12/04/16 12/09/16 04:31 05:13 Creatine Kinase CK-MB (CK-2) Troponin I NT-Pro-B Natriuret Pep 87006 H 6320 H Impressions: Chest X-Ray 12/06/16 00:00 IMPRESSION: NO CHANGE IN APPEARANCE OF THE CHEST. Hand X-Ray 12/26/16 00:00 IMPRESSION: 3rd finger soft tissue swelling without fracture, radiopaque foreign body or soft tissue gas. Multifocal osteoarthritis Assessment & Plan - Diagnosis (1) COPD with acute exacerbation Is this a current diagnosis for this admission?: No (2) Hypoxia Is this a current diagnosis for this admission?: Yes (3) Obesity hypoventilation syndrome Is this a current diagnosis for this admission?: Yes (4) Acute and chronic respiratory failure with hypercapnia Is this a current diagnosis for this admission?: Yes (5) Obstructive sleep apnea Is this a current diagnosis for this admission?: Yes (6) Tobacco dependency Is this a current diagnosis for this admission?: Yes
--- NOTE | 2017-01-04 12:26 | PDOC PROGRESS REPORT ---
Subjective Progress Note for:: 01/04/17 Subjective:: Long-term status remains undecided Physical Exam Vital Signs: Temp Pulse Resp BP Pulse Ox 97.8 F 66 21 H 134/60 H 99 01/04/17 07:54 01/04/17 07:54 01/04/17 07:54 01/04/17 07:54 01/04/17 07:54 Intake & Output 01/03/17 01/04/17 01/05/17 06:59 06:59 06:59 Intake Total 690 870 Output Total 725 930 Balance -35 -60 Weight 111.1 kg 111.1 kg General appearance: PRESENT: no acute distress, cooperative, disheveled, morbidly obese, well-developed Head exam: PRESENT: atraumatic, normocephalic Eye exam: PRESENT: conjunctiva pale, EOMI Mouth exam: PRESENT: dry mucosa, neck supple, tongue midline Neck exam: ABSENT: carotid bruit, JVD, lymphadenopathy, thyromegaly Respiratory exam: PRESENT: decreased breath sounds, prolonged expiratory phas, rhonchi, unlabored, wheezes Cardiovascular exam: PRESENT: RRR, +S1, +S2 Pulses: PRESENT: normal radial pulses GI/Abdominal exam: PRESENT: normal bowel sounds, soft. ABSENT: distended, guarding, mass, organolmegaly, rebound, tenderness Rectal exam: PRESENT: deferred Extremities exam: PRESENT: +1 edema Neurological exam: PRESENT: alert, awake Psychiatric exam: PRESENT: normal mood Skin exam: PRESENT: dry, warm Results Laboratory Results: 01/02/17 05:20 01/03/17 04:01 12/03/16 12/03/16 12/03/16 06:20 06:20 12:02 Creatine Kinase < 20 L < 20 L CK-MB (CK-2) 0.55 Troponin I 0.028 NT-Pro-B Natriuret Pep 12/03/16 12/03/16 12/03/16 12:02 18:20 18:20 Creatine Kinase < 20 L CK-MB (CK-2) 0.47 0.32 Troponin I 0.018 0.016 NT-Pro-B Natriuret Pep 12/04/16 12/09/16 04:31 05:13 Creatine Kinase CK-MB (CK-2) Troponin I NT-Pro-B Natriuret Pep 45085 H 6320 H Impressions: Chest X-Ray 12/06/16 00:00 IMPRESSION: NO CHANGE IN APPEARANCE OF THE CHEST. Hand X-Ray 12/26/16 00:00 IMPRESSION: 3rd finger soft tissue swelling without fracture, radiopaque foreign body or soft tissue gas. Multifocal osteoarthritis Assessment & Plan - Diagnosis (1) COPD with acute exacerbation Is this a current diagnosis for this admission?: No (2) Hypoxia Is this a current diagnosis for this admission?: Yes (3) Obesity hypoventilation syndrome Is this a current diagnosis for this admission?: Yes (4) Acute and chronic respiratory failure with hypercapnia Is this a current diagnosis for this admission?: Yes (5) Obstructive sleep apnea Is this a current diagnosis for this admission?: Yes (6) Tobacco dependency Is this a current diagnosis for this admission?: Yes
--- NOTE | 2017-01-04 15:47 | PROGRESS NOTE E ---
Progress Note NAME: MARIANO HENRY : 1945 AGE: 71Y DATE: 01/04/2017 ROOM: 409 SUBJECTIVE: The patient is lying in bed. She states she feels okay today. She denies any nausea, vomiting, diarrhea, any dizziness, chest pain, or fevers/chills. Shortness of breath at baseline. The patient does not voice any other concerns at this time. REVIEW OF SYSTEMS: The rest of the review of systems is negative. MEDICATIONS: Medications have been reviewed. OBJECTIVE: GENERAL: The patient is a 71-year-old female who is awake, alert and oriented to person, place, time, and situation. She is verbal, conversational, does not appear to be in any acute distress. VITAL SIGNS: As follows: Temperature is 97.8, pulse 75, respirations 21, blood pressure is 134/59, oxygen saturation 96% on 2 liters nasal cannula. SKIN: Warm and dry. No rash. She is not diaphoretic. HEENT: Pupils equal, round, reactive to light and accommodation. Conjunctiva is pink. NECK: No JVD. CARDIOVASCULAR SYSTEM: Heart is regular. There is no murmur or rub. CHEST: Clear, symmetrical, unlabored. ABDOMEN: Soft, nontender, nondistended. BACK: No CVA tenderness, sacral edema. EXTREMITIES: No clubbing, cyanosis, edema. PSYCHIATRIC: Appropriate affect. Pleasant mood. DIAGNOSTICS: Lab values are as follows: Hematology obtained on 01/02/2017; WBCs are 8.6, hemoglobin is 10.3, hematocrit is 32.0, platelet count is 318,000. Chemistry obtained 01/03/2017: Sodium is 141, potassium 3.7, chloride is 103, carbon dioxide 25, BUN 20, creatinine is 1.1, glucose 101, calcium 5.6, magnesium is 1.9. Microbiology: Blood cultures obtained on 01/03/2017 reveal no growth. IMPRESSION AND PLAN: 1. CHRONIC OBSTRUCTIVE PULMONARY DISEASE EXACERBATION. This is resolved. 2. ACUTE ON CHRONIC HYPOXEMIC AND HYPERCAPNIC RESPIRATORY FAILURE. This has been stabilized. Saturations are in a good range. Allow nasal cannula, continue Trilogy at night. Overall, the patient is doing well. Currently awaiting LTAC bed. Apparently the patient's insurance has approved such and most likely will go tomorrow. The patient's respiratory failure is due to hypoventilation syndrome, obesity, cor pulmonale, and chronic hypercapnia. 3. CHRONIC KIDNEY DISEASE, STAGE 3. Stable overall. 4. HYPOVENTILATION SYNDROME. Currently awaiting LTAC bed. 5. PLEURAL EFFUSION. Stable. 6. COR PULMONALE. Compensated. 7. MODERATE TO SEVERE PULMONARY HYPERTENSION. The patient is at baseline. 8. PHYSICAL DECONDITIONING. The patient is waiting to go to LTAC. DISPOSITION: The patient is a DNR/DNI. Pending patient's symptomatology and diagnostic findings, hopefully the patient can go to LTAC in the a.m. Time spent on this followup including assessment, plan, physical examination, patient education, and review of records is 15 minutes. DICTATING PHYSICIAN: NATALIA ABBASI NP [id number] PHY#: [id number] ID: [id number] JOB#: [id number] ACCT: [id number] cc:NATALIA ABBASI NP > MTDD
[2017-01-04] MEDS: ATORVASTATIN CALCIUM 40 MG TABLET PO SCH (21:09)
[2017-01-05] MEDS: IPRATROPIUM/ALBUTEROL 0.5-2.5 MG/3 ML AMPUL NEB SCH ×6 (00:17→20:03)
[2017-01-05] MEDS: HEPARIN SOD (PORCINE) 5,000 UNIT/ML 1 ML SYRINGE SUBCUT SCH ×3 (06:30→21:27)
[2017-01-05] MEDS: MAGNESIUM OXIDE 400 MG TABLET PO SCH (09:39)
[2017-01-05] MEDS: SILDENAFIL CITRATE 20 MG TABLET PO SCH ×3 (09:39→17:24)
[2017-01-05] MEDS: GABAPENTIN 300 MG CAPSULE PO SCH ×2 (09:39→21:27)
[2017-01-05] MEDS: MIDODRINE HCL 5 MG TABLET PO SCH ×3 (09:39→17:24)
[2017-01-05] MEDS: THIAMINE HCL 100 MG TABLET PO SCH (09:39)
[2017-01-05] MEDS: DOCUSATE SODIUM 100 MG CAPSULE PO SCH ×2 (09:39→17:24)
[2017-01-05] MEDS: ACETAMINOPHEN 325 MG TABLET PO PRN ×2 (11:15→21:27)
--- NOTE | 2017-01-05 16:13 | PROGRESS NOTE E ---
Progress Note NAME: MARIANO HENRY : 1945 AGE: 71Y DATE: 01/05/2017 ROOM: 409 SUBJECTIVE: The patient is lying in bed. The patient is to be evaluated by the LTAC facility today. She has had no changes. Denies any nausea, vomiting, diarrhea. No shortness of breath, dizziness, chest pain. No fevers, chills. The patient has been afebrile. Her blood pressure has been in a good range. The patient does not voice any other concerns at this time. OBJECTIVE: VITAL SIGNS: As follows: Temperature is 98.7, pulse 79, respirations 18, blood pressure is 129/54, oxygen saturation 91% on 3 liters nasal cannula. SKIN: Warm and dry. No rash. Not diaphoretic. HEENT: Pupils equal, round, reactive to light and accommodation. Conjunctiva is pink. NECK: No JVD. CARDIOVASCULAR SYSTEM: Heart is regular. There is no murmur or rub. CHEST: Clear, symmetrical, unlabored. ABDOMEN: Soft, nontender, nondistended. BACK: No CVA tenderness, sacral edema. EXTREMITIES: No clubbing, cyanosis, edema. PSYCHIATRIC: Appropriate affect. Pleasant mood. DIAGNOSTICS: Lab values are as follows: Hematology obtained on 01/02/2017; WBCs are 8.6, hemoglobin is 10.3, hematocrit is 32.0, platelet count is 318,000. Chemistry obtained on 01/03/2017: Sodium is 141, potassium 3.7, chloride is 103, carbon dioxide 25, BUN 20, creatinine is 1.1, glucose 101, calcium is 9.6, magnesium is 1.9. IMPRESSION AND PLAN: 1. CHRONIC OBSTRUCTIVE PULMONARY DISEASE EXACERBATION. Resolved. 2. ACUTE ON CHRONIC HYPOXEMIC HYPERCAPNIC RESPIRATORY FAILURE. This is stable. Last saturations in good range, currently on nasal cannula with the Trilogy at night. Overall, the patient is doing well, currently awaiting an LTAC bed. The patient apparently has had prior insurance approval; however, they will not use the same number as the previous one. Regardless, hopefully we can get her to an LTAC as soon as possible. 3. CHRONIC KIDNEY DISEASE STAGE 3. Overall stable. 4. OBESITY HYPOVENTILATION SYNDROME. Currently awaiting an LTAC bed. 5. PLEURAL EFFUSION. Stable. 6. COR PULMONALE. Compensated. 7. MODERATE TO SEVERE PULMONARY HYPERTENSION. The patient is at baseline. 8. PHYSICAL DECONDITIONING. The patient is waiting to go to LTAC. DISPOSITION: The patient is a DO NOT RESUSCITATE/DO NOT INTUBATE. Pending patient's symptomatology and diagnostic findings, we will re-evaluate in the a.m. Time spent on this followup including assessment, plan, physical examination, patient education is 10 minutes. DICTATING PHYSICIAN: NATALIA ABBASI NP [id number] Y#: [id number] ID: [id number] JOB#: [id number] ACCT: [id number] cc:NATALIA ABBASI NP >
--- NOTE | 2017-01-05 17:54 | PDOC PROGRESS REPORT ---
Subjective Progress Note for:: 01/05/17 Subjective:: Long-term status remains undecided but has been approved by insurance Physical Exam Vital Signs: Temp Pulse Resp BP Pulse Ox 98.7 F 71 20 129/54 H 91 L 01/05/17 15:01 01/05/17 16:13 01/05/17 16:13 01/05/17 15:01 01/05/17 16:13 Intake & Output 01/04/17 01/05/17 01/06/17 06:59 06:59 06:59 Intake Total 870 1505 960 Output Total 930 150 Balance -60 1355 960 Weight 111.1 kg 111.1 kg General appearance: PRESENT: no acute distress, cooperative, disheveled, morbidly obese, well-developed Head exam: PRESENT: atraumatic, normocephalic Eye exam: PRESENT: conjunctiva pale, EOMI Mouth exam: PRESENT: dry mucosa, neck supple Neck exam: ABSENT: carotid bruit, JVD, lymphadenopathy, thyromegaly Respiratory exam: PRESENT: decreased breath sounds, prolonged expiratory phas, rhonchi, symmetrical, unlabored Cardiovascular exam: PRESENT: RRR, +S1, +S2 Pulses: PRESENT: normal radial pulses GI/Abdominal exam: PRESENT: normal bowel sounds, soft. ABSENT: distended, guarding, mass, organolmegaly, rebound, tenderness Rectal exam: PRESENT: deferred Musculoskeletal exam: PRESENT: normal inspection Neurological exam: PRESENT: alert, awake Focused psych exam: PRESENT: internal stimuli Skin exam: PRESENT: dry, warm Results Laboratory Results: 01/02/17 05:20 01/03/17 04:01 12/03/16 12/03/16 12/03/16 06:20 06:20 12:02 Creatine Kinase < 20 L < 20 L CK-MB (CK-2) 0.55 Troponin I 0.028 NT-Pro-B Natriuret Pep 12/03/16 12/03/16 12/03/16 12:02 18:20 18:20 Creatine Kinase < 20 L CK-MB (CK-2) 0.47 0.32 Troponin I 0.018 0.016 NT-Pro-B Natriuret Pep 12/04/16 12/09/16 04:31 05:13 Creatine Kinase CK-MB (CK-2) Troponin I NT-Pro-B Natriuret Pep 84400 H 6320 H Impressions: Chest X-Ray 12/06/16 00:00 IMPRESSION: NO CHANGE IN APPEARANCE OF THE CHEST. Hand X-Ray 12/26/16 00:00 IMPRESSION: 3rd finger soft tissue swelling without fracture, radiopaque foreign body or soft tissue gas. Multifocal osteoarthritis Assessment & Plan - Diagnosis (1) COPD with acute exacerbation Is this a current diagnosis for this admission?: No (2) Hypoxia Is this a current diagnosis for this admission?: Yes (3) Obesity hypoventilation syndrome Is this a current diagnosis for this admission?: Yes (4) Acute and chronic respiratory failure with hypercapnia Is this a current diagnosis for this admission?: Yes (5) Obstructive sleep apnea Is this a current diagnosis for this admission?: Yes (6) Tobacco dependency Is this a current diagnosis for this admission?: Yes
[2017-01-05] MEDS: ATORVASTATIN CALCIUM 40 MG TABLET PO SCH (21:27)
[2017-01-06] MEDS: IPRATROPIUM/ALBUTEROL 0.5-2.5 MG/3 ML AMPUL NEB SCH ×6 (00:03→19:50)
[2017-01-06] MEDS: HEPARIN SOD (PORCINE) 5,000 UNIT/ML 1 ML SYRINGE SUBCUT SCH ×3 (05:43→22:17)
[2017-01-06 06:16] LABS: HEMATOCRIT 32.2 % (36.0-47.0); HEMOGLOBIN 10.4 g/dL (12.0-15.5); MEAN CORPUSCULAR HEMOGLOBIN 29.9 pg (27.0-33.4); MEAN CORPUSCULAR HGB CONC 32.2 g/dL (32.0-36.0); MEAN CORPUSCULAR VOLUME 93 fl (80-97); RED BLOOD COUNT 3.47 10^6/uL (3.72-5.28); RED CELL DISTRIBUTION WIDTH 16.8 % (11.5-14.0); WHITE BLOOD COUNT 7.1 10^3/uL (4.0-10.5)
[2017-01-06 06:44] LABS: ANION GAP 14 (5-19); BLOOD UREA NITROGEN 20 mg/dL (7-20); CALCIUM 10.1 mg/dL (8.4-10.2); CARBON DIOXIDE 24 mmol/L (22-30); CHLORIDE 104 mmol/L (98-107); CREATININE RESULT 1.08 mg/dL (0.52-1.25); GLUCOSE 97 mg/dL (75-110); MAGNESIUM 1.9 mg/dL (1.6-2.3); POTASSIUM 4.2 mmol/L (3.6-5.0); SODIUM 141.7 mmol/L (137-145)
[2017-01-06] MEDS: THIAMINE HCL 100 MG TABLET PO SCH (09:33)
[2017-01-06] MEDS: MAGNESIUM OXIDE 400 MG TABLET PO SCH (09:33)
[2017-01-06] MEDS: GABAPENTIN 300 MG CAPSULE PO SCH ×2 (09:33→22:19)
[2017-01-06] MEDS: MIDODRINE HCL 5 MG TABLET PO SCH ×3 (09:33→17:59)
[2017-01-06] MEDS: SILDENAFIL CITRATE 20 MG TABLET PO SCH ×3 (09:34→17:59)
[2017-01-06] MEDS: DOCUSATE SODIUM 100 MG CAPSULE PO SCH ×2 (09:34→17:59)
[2017-01-06] MEDS: ACETAMINOPHEN 325 MG TABLET PO PRN ×3 (09:40→22:19)
--- NOTE | 2017-01-06 10:56 | PDOC PROGRESS REPORT ---
Subjective Progress Note for:: 01/06/17 Subjective:: Long-term status remains undecided but has been approved by insurance Physical Exam Vital Signs: Temp Pulse Resp BP Pulse Ox 97.5 F 75 20 128/72 H 94 01/06/17 08:00 01/06/17 08:00 01/06/17 08:00 01/06/17 08:00 01/06/17 08:00 Intake & Output 01/05/17 01/06/17 01/07/17 06:59 06:59 06:59 Intake Total 1505 1190 Output Total 150 Balance 1355 1190 Weight 111.1 kg 109.2 kg General appearance: PRESENT: no acute distress, cooperative, disheveled, morbidly obese, well-developed Head exam: PRESENT: atraumatic, normocephalic Eye exam: PRESENT: conjunctiva pale, EOMI Mouth exam: PRESENT: dry mucosa, neck supple, tongue midline Neck exam: ABSENT: carotid bruit, JVD, lymphadenopathy, thyromegaly Respiratory exam: PRESENT: decreased breath sounds, prolonged expiratory phas, rhonchi, symmetrical, unlabored Cardiovascular exam: PRESENT: RRR, +S1, +S2 Pulses: PRESENT: normal radial pulses GI/Abdominal exam: PRESENT: normal bowel sounds, soft. ABSENT: distended, guarding, mass, organolmegaly, rebound, tenderness Rectal exam: PRESENT: deferred Musculoskeletal exam: PRESENT: normal inspection Neurological exam: PRESENT: alert, awake Psychiatric exam: PRESENT: normal mood Skin exam: PRESENT: dry, warm Results Laboratory Results: 01/06/17 05:43 01/06/17 05:43 01/06/17 01/06/17 05:43 05:43 WBC 7.1 RBC 3.47 L Hgb 10.4 L Hct 32.2 L MCV 93 MCH 29.9 MCHC 32.2 RDW 16.8 H Plt Count 294 Sodium 141.7 Potassium 4.2 Chloride 104 Carbon Dioxide 24 Anion Gap 14 BUN 20 Creatinine 1.08 Est GFR ( Amer) > 60 Est GFR (Non-Af Amer) 50 L Glucose 97 Calcium 10.1 Magnesium 1.9 12/03/16 12/03/16 12/03/16 06:20 06:20 12:02 Creatine Kinase < 20 L < 20 L CK-MB (CK-2) 0.55 Troponin I 0.028 NT-Pro-B Natriuret Pep 12/03/16 12/03/16 12/03/16 12:02 18:20 18:20 Creatine Kinase < 20 L CK-MB (CK-2) 0.47 0.32 Troponin I 0.018 0.016 NT-Pro-B Natriuret Pep 12/04/16 12/09/16 04:31 05:13 Creatine Kinase CK-MB (CK-2) Troponin I NT-Pro-B Natriuret Pep 14091 H 6320 H Impressions: Chest X-Ray 12/06/16 00:00 IMPRESSION: NO CHANGE IN APPEARANCE OF THE CHEST. Hand X-Ray 12/26/16 00:00 IMPRESSION: 3rd finger soft tissue swelling without fracture, radiopaque foreign body or soft tissue gas. Multifocal osteoarthritis Assessment & Plan - Diagnosis (1) COPD with acute exacerbation Is this a current diagnosis for this admission?: No (2) Hypoxia Is this a current diagnosis for this admission?: Yes (3) Obesity hypoventilation syndrome Is this a current diagnosis for this admission?: Yes (4) Acute and chronic respiratory failure with hypercapnia Is this a current diagnosis for this admission?: Yes (5) Obstructive sleep apnea Is this a current diagnosis for this admission?: Yes (6) Tobacco dependency Is this a current diagnosis for this admission?: Yes
--- NOTE | 2017-01-06 17:14 | PROGRESS NOTE E ---
Progress Note NAME: MARIANO HENRY : 1945 AGE: 71Y DATE: 01/06/2017 ROOM: 409 SUBJECTIVE: The patient is lying in bed. She has been seen and accepted by [facility] , currently awaiting insurance follow through. Everything is pretty much the same. No new complaints. No nausea, vomiting, diarrhea. Her shortness of breath is at baseline. No dizziness, chest pain. No fevers, chills. Patient has been afebrile. Blood pressure has been in good range. Patient does not voice any other concerns at this time. REVIEW OF SYSTEMS: Rest of review of systems negative. MEDICATIONS: Medications have been reviewed. OBJECTIVE: GENERAL: The patient is a 71-year-old female. Is awake, alert, and oriented to person, place, time, and situation. She is verbal and conversational. Does not appear to be in acute distress. VITAL SIGNS: As follows: Temperature is 98.3, pulse 73, respirations 24, blood pressure is 149/81. Oxygen saturation 90% on 3 L nasal cannula. SKIN: Warm and dry. No rash. Not diaphoretic. HEENT: Pupils equal, round, reactive to light and accommodation. Conjunctivae pink. NECK: No JVP. CARDIOVASCULAR SYSTEM: Heart is regular. There is no murmur or rub. CHEST: Is diminished. Symmetrical, unlabored. ABDOMEN: Soft, obese, nontender. BACK: No CVA tenderness, sacral edema. EXTREMITIES: No clubbing, cyanosis, edema. PSYCHIATRIC: Appropriate affect. Pleasant mood. DIAGNOSTICS: Lab values are as follows: Hematology obtained on 01/06/2017: WBCs are 8.1, hemoglobin is 10.4, hematocrit is 32.2, platelet count is 394,000. Chemistry obtained on 01/06/2017: Sodium is 141, potassium 4.2, chloride is 104, carbon dioxide 24, BUN 20, creatinine is 0.8, glucose 97, calcium is 10.1, magnesium is 1.9. IMPRESSION AND PLAN: 1. CHRONIC OBSTRUCTIVE PULMONARY DISEASE EXACERBATION. RESOLVED. 2. ACUTE ON CHRONIC HYPOXEMIC AND HYPERCAPNIC RESPIRATORY FAILURE. THIS IS RELATIVELY STABLE. Last saturations in a good range. Patient is currently on nasal cannula with Trilogy intermittently. Overall, the patient is doing well, currently awaiting LTAC bed. The patient apparently had prior insurance approval; however, they are not able to use the same number as the previous approval. Regardless, hopefully we can get her to an LTAC bed as soon as possible. 3. CHRONIC KIDNEY DISEASE STAGE 3. OVERALL STABLE. 4. OBESITY AND HYPOVENTILATION SYNDROME. Encouraged weight reduction. 5. PLEURAL EFFUSION. STABLE. 6. COR PULMONALE. THE PATIENT IS COMPENSATED. 7. MNTIONWS-UT-YQROAK PULMONARY HYPERTENSION. PATIENT IS AT BASELINE. 8. SEVERE DECONDITIONING. Patient is awaiting to go in LTAC. DISPOSITION: The patient is a DO NOT RESUSCITATE/DO NOT INTUBATE. Pending patient's symptomatology and diagnostic findings, we will reevaluate in the a.m. TIME SPENT ON THIS FOLLOWUP: Including assessment, plan, physical examination, patient education is 15 minutes. DICTATING PHYSICIAN: NATALIA ABBASI NP [id number] PHY#: [id number] ID: [id number] JOB#: [id number] ACCT: [id number] cc: > MTDD
[2017-01-06] MEDS: ATORVASTATIN CALCIUM 40 MG TABLET PO SCH (22:19)
[2017-01-07] MEDS: IPRATROPIUM/ALBUTEROL 0.5-2.5 MG/3 ML AMPUL NEB SCH ×7 (00:01→23:54)
[2017-01-07] MEDS: HEPARIN SOD (PORCINE) 5,000 UNIT/ML 1 ML SYRINGE SUBCUT SCH ×3 (05:47→21:14)
[2017-01-07] MEDS: GABAPENTIN 300 MG CAPSULE PO SCH ×2 (09:34→21:16)
[2017-01-07] MEDS: ACETAMINOPHEN 325 MG TABLET PO PRN ×3 (09:34→21:17)
[2017-01-07] MEDS: DOCUSATE SODIUM 100 MG CAPSULE PO SCH ×2 (09:34→17:43)
[2017-01-07] MEDS: MIDODRINE HCL 5 MG TABLET PO SCH ×3 (09:35→17:43)
[2017-01-07] MEDS: THIAMINE HCL 100 MG TABLET PO SCH (09:35)
[2017-01-07] MEDS: MAGNESIUM OXIDE 400 MG TABLET PO SCH (09:35)
[2017-01-07] MEDS: SILDENAFIL CITRATE 20 MG TABLET PO SCH ×3 (09:35→17:43)
--- NOTE | 2017-01-07 14:48 | PROGRESS NOTE E ---
Progress Note NAME: MARIANO HENRY : 1945 AGE: 71Y DATE: 01/07/2017 ROOM: 409 SUBJECTIVE: The patient is lying in bed. The patient feels the same today as she did yesterday. The patient has been afebrile. Her blood pressure has been in a good range. The patient's shortness of breath is at baseline. She has had no reported episodes of vomiting nor diarrhea and the patient does not voice any other concerns at this time. REVIEW OF SYSTEMS: The rest of the review of systems is negative. MEDICATIONS: Medications have been reviewed. OBJECTIVE: GENERAL: The patient is a 71-year-old female who is awake, alert, and oriented to person, place, time, and situation. She is verbal, conversational, and does not appear to be in any acute distress. VITAL SIGNS: Temperature is 97.9, pulse 68, respirations 18, blood pressure is 140/76, oxygen saturation is 91% on 3 L nasal cannula. SKIN: Warm and dry. No rash. She is not diaphoretic. HEENT: Pupils equal, round, and reactive to light and accommodation. Conjunctivae pink. NECK: No JVD. CARDIOVASCULAR SYSTEM: Heart is regular. There is no murmur or rub. CHEST: Diminished, symmetrical, unlabored. ABDOMEN: Soft, nontender, and nondistended. Bowel sounds are present. BACK: No CVA tenderness or sacral edema. EXTREMITIES: No clubbing, cyanosis, edema. PSYCHIATRIC: Appropriate affect, pleasant mood. DIAGNOSTIC DATA: Lab values are as follows: Hematology obtained on 01/06/2017: WBCs are 7.1, hemoglobin is 10.4, hematocrit is 32.2, platelet count is 294,000. Chemistries obtained on 01/06/2017: Sodium is 141, potassium 4.2, chloride is 104, carbon dioxide is 24, BUN 14, creatinine is 1.08, glucose is 97, calcium is 10.1, magnesium is 1.9. IMPRESSION AND PLAN: 1. CHRONIC OBSTRUCTIVE PULMONARY DISEASE EXACERBATION, RESOLVED. 2. ACUTE ON CHRONIC HYPOXEMIC AND HYPERCAPNIC RESPIRATORY FAILURE. THE PATIENT IS RELATIVELY STABLE WITH GOOD SATURATIONS. Patient is currently on nasal cannula with trilogy intermittently. Overall, the patient is awaiting for LTAC bed. The patient apparently had insurance approval; however, was unable to go to that facility and this is having to be re-approved with insurance. Follow. 3. CHRONIC KIDNEY DISEASE, STAGE 3. OVERALL THIS IS STABLE. 4. OBESITY AND HYPOVENTILATION SYNDROME. Will encourage weight reduction. 5. PLEURAL EFFUSION. THIS IS STABLE. 6. COR PULMONALE. PATIENT IS COMPENSATED. 7. MODERATE TO SEVERE PULMONARY HYPERTENSION. PATIENT IS AT BASELINE. 8. SEVERE DECONDITIONING. The patient is currently awaiting LTAC bed. DISPOSITION: The patient is a DO NOT RESUSCITATE/DO NOT INTUBATE. Pending the patient's symptomatology and diagnostic findings, will reevaluate in the a.m. TIME: Time spent on this followup including assessment, plan, physical examination, patient education, and family meeting was 15 minutes. DICTATING PHYSICIAN: NATALIA ABBASI NP [id number] PHY#: [id number] ID: [id number] JOB#: [id number] ACCT: [id number] cc: >
--- NOTE | 2017-01-07 15:44 | PDOC PROGRESS REPORT ---
Subjective Progress Note for:: 01/07/17 Subjective:: What is going to happen to me,Long-term status remains undecided but has been approved by insurance Physical Exam Vital Signs: Temp Pulse Resp BP Pulse Ox 97.9 F 68 20 148/76 H 94 01/07/17 12:00 01/07/17 12:06 01/07/17 12:06 01/07/17 12:00 01/07/17 12:06 Intake & Output 01/06/17 01/07/17 01/08/17 06:59 06:59 06:59 Intake Total 1190 1150 Output Total 950 Balance 1190 200 Weight 109.2 kg 110.5 kg General appearance: PRESENT: no acute distress, cooperative, disheveled, morbidly obese, well-developed Head exam: PRESENT: atraumatic, normocephalic Eye exam: PRESENT: conjunctiva pale, EOMI Mouth exam: PRESENT: dry mucosa, neck supple, tongue midline Neck exam: PRESENT: carotid bruit Respiratory exam: PRESENT: decreased breath sounds, prolonged expiratory phas, rhonchi, symmetrical, wheezes Cardiovascular exam: PRESENT: RRR, +S1, +S2 Pulses: PRESENT: normal radial pulses GI/Abdominal exam: PRESENT: normal bowel sounds, soft. ABSENT: distended, guarding, mass, organolmegaly, rebound, tenderness Rectal exam: PRESENT: deferred Extremities exam: PRESENT: +1 edema Neurological exam: PRESENT: alert, awake Psychiatric exam: PRESENT: normal mood Skin exam: PRESENT: dry, warm Results Laboratory Results: 01/06/17 05:43 01/06/17 05:43 12/03/16 12/03/16 12/03/16 06:20 06:20 12:02 Creatine Kinase < 20 L < 20 L CK-MB (CK-2) 0.55 Troponin I 0.028 NT-Pro-B Natriuret Pep 12/03/16 12/03/16 12/03/16 12:02 18:20 18:20 Creatine Kinase < 20 L CK-MB (CK-2) 0.47 0.32 Troponin I 0.018 0.016 NT-Pro-B Natriuret Pep 12/04/16 12/09/16 04:31 05:13 Creatine Kinase CK-MB (CK-2) Troponin I NT-Pro-B Natriuret Pep 44738 H 6320 H Impressions: Chest X-Ray 12/06/16 00:00 IMPRESSION: NO CHANGE IN APPEARANCE OF THE CHEST. Hand X-Ray 12/26/16 00:00 IMPRESSION: 3rd finger soft tissue swelling without fracture, radiopaque foreign body or soft tissue gas. Multifocal osteoarthritis Assessment & Plan - Diagnosis (1) COPD with acute exacerbation Is this a current diagnosis for this admission?: No (2) Hypoxia Is this a current diagnosis for this admission?: Yes (3) Obesity hypoventilation syndrome Is this a current diagnosis for this admission?: Yes (4) Acute and chronic respiratory failure with hypercapnia Is this a current diagnosis for this admission?: Yes (5) Obstructive sleep apnea Is this a current diagnosis for this admission?: Yes (6) Tobacco dependency Is this a current diagnosis for this admission?: Yes - Plan Summary Plan Summary: Placement pending
[2017-01-07] MEDS: ATORVASTATIN CALCIUM 40 MG TABLET PO SCH (21:16)
[2017-01-08] MEDS: IPRATROPIUM/ALBUTEROL 0.5-2.5 MG/3 ML AMPUL NEB SCH ×6 (03:54→23:52)
[2017-01-08] MEDS: HEPARIN SOD (PORCINE) 5,000 UNIT/ML 1 ML SYRINGE SUBCUT SCH ×3 (05:44→22:21)
[2017-01-08] MEDS: MIDODRINE HCL 5 MG TABLET PO SCH ×3 (10:14→17:32)
[2017-01-08] MEDS: SILDENAFIL CITRATE 20 MG TABLET PO SCH ×3 (10:14→17:31)
[2017-01-08] MEDS: DOCUSATE SODIUM 100 MG CAPSULE PO SCH ×2 (10:14→17:32)
[2017-01-08] MEDS: GABAPENTIN 300 MG CAPSULE PO SCH ×2 (10:15→22:21)
[2017-01-08] MEDS: THIAMINE HCL 100 MG TABLET PO SCH (10:15)
[2017-01-08] MEDS: ACETAMINOPHEN 325 MG TABLET PO PRN ×2 (10:15→22:21)
[2017-01-08] MEDS: MAGNESIUM OXIDE 400 MG TABLET PO SCH (10:15)
--- NOTE | 2017-01-08 15:18 | PROGRESS NOTE E ---
Progress Note NAME: MARIANO HENRY : 1945 AGE: 71Y DATE: 01/08/2017 ROOM: 409 SUBJECTIVE: The patient is currently lying in bed. She states she feels the same as she did yesterday, currently awaiting a decision by her insurance company. The patient denied any nausea, vomiting, diarrhea, shortness of breath, dizziness, chest pain. No fevers or chills. The patient has been afebrile. Blood pressure has been in a good range. The patient does not voice any other concerns at this time. REVIEW OF SYSTEMS: The rest of the review of systems is negative. MEDICATIONS: Medications have been reviewed. OBJECTIVE: GENERAL: The patient is a 71-year-old female who is awake, alert, and oriented to person, place, time, and situation. She is verbal and conversational, and does not appear to be in any acute distress. VITAL SIGNS: Temperature is 98.7, pulse 83, respirations 22, blood pressure is 141/71, oxygen saturation is 98% on 3 L nasal cannula. SKIN: Warm and dry. No rash. She is not diaphoretic. HEENT: Pupils equal, round, and reactive to light and accommodation. Conjunctivae pink. NECK: No JVD. CARDIOVASCULAR SYSTEM: Heart is regular. There is no murmur or rub. CHEST: Diminished, symmetrical, unlabored. ABDOMEN: Soft, nontender, and nondistended. BACK: No CVA tenderness or sacral edema. EXTREMITIES: No clubbing, cyanosis, edema. PSYCHIATRIC: Appropriate affect, pleasant mood. DIAGNOSTIC DATA: Lab values are as follows: Hematology obtained on 01/06/2017: WBCs are 7.1, hemoglobin is 10.4, hematocrit is 32.2, platelet count is 295,000. Chemistries obtained on 01/06/2017: Sodium is 141, potassium 4.2, chloride is 104, carbon dioxide 24, BUN 20, creatinine 1.08, glucose 97, calcium is 10.1, magnesium is 1.9. IMPRESSION AND PLAN: 1. CHRONIC OBSTRUCTIVE PULMONARY DISEASE EXACERBATION, RESOLVED. 2. ACUTE ON CHRONIC HYPOXEMIC AND HYPERCAPNIC RESPIRATORY FAILURE. The patient is relatively stable with good sats, currently on nasal cannula, intermittent Trilogy. Overall, the patient is awaiting LTAC bed. Patient apparently had insurance approval; however, was unable to go to that facility, so she is having to deal with a re-approval from insurance. Will follow. 3. CHRONIC KIDNEY DISEASE, STAGE 3. OVERALL, THIS IS STABLE. 4. OBESITY AND HYPOVENTILATION SYNDROME. Will encourage weight reduction. 5. PLEURAL EFFUSION. THIS IS STABLE. 6. COR PULMONALE. The patient is compensated. 7. MODERATE TO SEVERE PULMONARY HYPERTENSION. THE PATIENT IS AT BASELINE. 8. SEVERE DECONDITIONING. The patient is currently awaiting LTAC bed. DISPOSITION: The patient is a DO NOT RESUSCITATE/DO NOT INTUBATE. Pending the patient's symptomatology and diagnostic findings, the patient will go to an LTAC as soon as a bed is available. TIME: Time spent on this followup including assessment, plan, physical examination, and patient education and speciality collaboration is 15 minutes. DICTATING PHYSICIAN: NATALIA ABBASI NP [id number] PHY#: [id number] ID: [id number] JOB#: [id number] ACCT: [id number] cc: >
[2017-01-08] MEDS: ATORVASTATIN CALCIUM 40 MG TABLET PO SCH (22:21)
[2017-01-09] MEDS: IPRATROPIUM/ALBUTEROL 0.5-2.5 MG/3 ML AMPUL NEB SCH ×6 (04:30→23:57)
[2017-01-09] MEDS: HEPARIN SOD (PORCINE) 5,000 UNIT/ML 1 ML SYRINGE SUBCUT SCH ×3 (06:15→22:00)
[2017-01-09] MEDS: SILDENAFIL CITRATE 20 MG TABLET PO SCH ×3 (08:27→17:42)
[2017-01-09] MEDS: MIDODRINE HCL 5 MG TABLET PO SCH ×3 (09:21→17:42)
[2017-01-09] MEDS: DOCUSATE SODIUM 100 MG CAPSULE PO SCH ×2 (09:21→17:43)
[2017-01-09] MEDS: MAGNESIUM OXIDE 400 MG TABLET PO SCH (09:21)
[2017-01-09] MEDS: THIAMINE HCL 100 MG TABLET PO SCH (09:21)
[2017-01-09] MEDS: GABAPENTIN 300 MG CAPSULE PO SCH ×2 (09:21→22:00)
--- NOTE | 2017-01-09 09:39 | PROGRESS NOTE E ---
Progress Note NAME: MARIANO HENRY : 1945 AGE: 71Y DATE: 01/09/2017 ROOM: 409 SUBJECTIVE: The patient is lying in bed. She states that she feels pretty good today. The patient is currently awaiting to go to an LTAC. She has been accepted. They are just waiting on a bed. The patient denies any nausea, vomiting, diarrhea. No dizziness, chest pain. No fevers or chills. The patient has been afebrile. Blood pressure has been in a good range. The patient does not voice any other concerns at this time. REVIEW OF SYSTEMS: The rest of the review of systems is negative. MEDICATIONS: Medications have been reviewed. OBJECTIVE: GENERAL: The patient is a 71-year-old female who is awake, alert. She is oriented to person, place, time, and situation. She is verbal and conversational, and does not appear to be in any acute distress. VITAL SIGNS FOLLOWS: Temperature is 97.7, pulse 60, respirations 20, blood pressure is 126/63, oxygen saturation is 99% on 4 liters nasal cannula. SKIN: Warm and dry. No rash. She is not diaphoretic. HEENT: Pupils equal, round, and reactive to light and accommodation. Conjunctivae are pink. NECK: No JVP. CARDIOVASCULAR: Heart is regular. There is no murmur or rub. CHEST: Diminished, symmetrical, unlabored. ABDOMEN: Soft, nontender, and nondistended. BACK: No CVA tenderness or sacral edema. EXTREMITIES: No clubbing, cyanosis, edema. PSYCHIATRIC: Appropriate affect, pleasant mood. DIAGNOSTICS: Lab values are as follows: Hematology obtained on 01/06/2017: WBCs are 7.1, hemoglobin is 10.4, hematocrit is 32.2, platelet count is 294,000. Chemistry obtained on 01/06/2017: Sodium is 141, potassium 4.2, chloride 104, carbon dioxide 24, BUN 20, creatinine 0.08, glucose 91, calcium is 10.1, magnesium is 1.9. IMPRESSION AND PLAN: 1. CHRONIC OBSTRUCTIVE PULMONARY DISEASE EXACERBATION. THIS IS RESOLVED. 2. ACUTE ON CHRONIC HYPOXEMIC AND HYPERCAPNIC RESPIRATORY FAILURE. The patient is stable with good sats, currently on nasal cannula, intermittent Trilogy, especially at night. The patient is waiting for an LTAC bed. 3. CHRONIC KIDNEY DISEASE, STAGE III, STABLE. 4. OBESITY AND HYPOVENTILATION SYNDROME. Will encourage weight reduction. 5. PLEURAL EFFUSION, STABLE. 6. COR PULMONAL. This is compensated. 7. MODERATE TO SEVERE PULMONARY HYPERTENSION, AT BASELINE. 8. SEVERE DECONDITIONING. Awaiting an LTAC bed. DISPOSITION: The patient is a DO NOT RESUSCITATE/DO NOT INTUBATE. Pending the patient's symptomatology and diagnostic findings, the patient will go to LTAC as soon as a bed is available. TIME: Time spent on this followup including assessment, plan, physical examination, patient education, and speciality collaboration is 15 minutes. DICTATING PHYSICIAN: NATALIA ABBASI NP [id number] PHY#: [id number] ID: [id number] JOB#: [id number] ACCT: [id number] cc: >
[2017-01-09] MEDS: ACETAMINOPHEN 325 MG TABLET PO PRN ×2 (10:52→22:00)
[2017-01-09] MEDS: ATORVASTATIN CALCIUM 40 MG TABLET PO SCH (22:00)
[2017-01-10] MEDS: IPRATROPIUM/ALBUTEROL 0.5-2.5 MG/3 ML AMPUL NEB SCH ×5 (04:10→19:31)
[2017-01-10] MEDS: HEPARIN SOD (PORCINE) 5,000 UNIT/ML 1 ML SYRINGE SUBCUT SCH ×3 (05:54→21:09)
[2017-01-10] MEDS: GABAPENTIN 300 MG CAPSULE PO SCH ×2 (09:05→21:09)
[2017-01-10] MEDS: MAGNESIUM OXIDE 400 MG TABLET PO SCH (09:05)
[2017-01-10] MEDS: THIAMINE HCL 100 MG TABLET PO SCH (09:05)
[2017-01-10] MEDS: DOCUSATE SODIUM 100 MG CAPSULE PO SCH ×2 (09:06→18:44)
[2017-01-10] MEDS: ACETAMINOPHEN 325 MG TABLET PO PRN ×2 (09:06→21:10)
[2017-01-10] MEDS: SILDENAFIL CITRATE 20 MG TABLET PO SCH ×3 (09:07→18:44)
[2017-01-10] MEDS: MIDODRINE HCL 5 MG TABLET PO SCH ×3 (09:07→17:33)
[2017-01-10] MEDS ORDERED: LEVOTHYROXINE SODIUM 0.15 MG TABLET PO ONE (11:30)
[2017-01-10] MEDS ORDERED: ALBUTEROL SULFATE 0.083% NEB 2.5 MG/3 ML AMPUL NEB PRN (12:48)
--- NOTE | 2017-01-10 14:19 | PROGRESS NOTE E ---
Progress Note NAME: MARIANO HENRY : 1945 AGE: 71Y DATE: 01/10/2017 ROOM: 409 SUBJECTIVE: The patient is lying in bed. She is awaiting transportation to LTAC. She has been accepted, is waiting for a bed. The patient is complaining that the bed is not comfortable and that nursing staff do not know how to operate the bed. The patient has had no physical concerns over time. No nausea, vomiting, diarrhea, dizziness, chest pain. The patient does not voice any other concerns at this time. REVIEW OF SYSTEMS: The rest of the review of systems is negative. MEDICATIONS: Medications have been reviewed. OBJECTIVE: GENERAL: The patient is a 71-year-old female who is awake, alert and oriented to person, place, time, and situation. She is verbal, conversational, does not appear to be in acute distress. VITAL SIGNS: As follows: Temperature is 98.5, pulse 97, respirations 21, blood pressure is 145/72, oxygen saturation 94% on 2 liters nasal cannula. SKIN: Warm and dry. No rash. Not diaphoretic. HEENT: Pupils equal, round, reactive to light and accommodation. Conjunctivae pink. NECK: No JVP. CARDIOVASCULAR SYSTEM: Heart is regular. There is no murmur or rub. CHEST: Clear, symmetrical, unlabored. ABDOMEN: Soft, nontender, nondistended. BACK: No CVA tenderness, sacral edema. EXTREMITIES: No clubbing, cyanosis, edema. PSYCHIATRIC: Appropriate affect. Pleasant mood. DIAGNOSTICS: Lab values are as follows: Hematology obtained on 01/06/2017; WBCs are 5.1, hemoglobin is 10.4, hematocrit is 32.2, platelet count is 294,000. Chemistry obtained on 01/06/2017: Sodium is 141, potassium 4.2, chloride is 104, carbon dioxide 24, BUN 20, creatinine is 1.08, glucose 97, calcium is 10.1, magnesium is 1.9. IMPRESSION AND PLAN: 1. CHRONIC OBSTRUCTIVE PULMONARY DISEASE EXACERBATION. Resolved. 2. ACUTE ON CHRONIC HYPOXEMIC HYPERCAPNIC RESPIRATORY FAILURE. The patient is stable with good saturations, currently on nasal cannula intermittent use which is Trilogy especially at night, currently awaiting LTAC bed. 3. CHRONIC KIDNEY DISEASE, STAGE 3. Stable. 4. OBESITY HYPOVENTILATION SYNDROME. Encourage weight reduction. 5. PLEURAL EFFUSION. Stable. 6. COR PULMONALE. The patient is now compensated. 7. MODERATE TO SEVERE PULMONARY HYPERTENSION. At baseline. 8. SEVERE CURRENTLY DECONDITIONING. Currently awaiting LTAC bed. DISPOSITION: The patient is a DO NOT RESUSCITATE/DO NOT INTUBATE. Pending patient's symptomatology and diagnostic findings, the patient will go to LTAC as soon as the bed is available. Time spent on this followup including assessment, plan, physical examination, patient education, specialty collaboration is 15 minutes. DICTATING PHYSICIAN: NATALIA ABBASI NP [id number] PHY#: [id number] ID: [id number] JOB#: [id number] ACCT: [id number] cc:NATALIA ABBASI NP >
[2017-01-10] MEDS: ATORVASTATIN CALCIUM 40 MG TABLET PO SCH (21:09)
[2017-01-11] MEDS: HEPARIN SOD (PORCINE) 5,000 UNIT/ML 1 ML SYRINGE SUBCUT SCH (05:38)
[2017-01-11] MEDS ORDERED: LEVOTHYROXINE SODIUM 0.15 MG TABLET PO SCH (08:00)
[2017-01-11] MEDS: IPRATROPIUM/ALBUTEROL 0.5-2.5 MG/3 ML AMPUL NEB SCH (08:54)
--- NOTE | 2017-01-11 09:38 | TRANSFER SUMMARY E ---
Transfer Summary NAME: MARIANO HENRY : 1945 AGE: 71Y ADMITTED: 12/03/2016 TRANSFERRED: 01/11/2017 CODE STATUS: DO NOT RESUSCITATE, DO NOT INTUBATE. PRIMARY CARE PROVIDER: León Cox MD [facility] A DRIVER: Ground [employer], Neri Chowdary MD TRANSFER DIAGNOSES: 1. CHRONIC OBSTRUCTIVE PULMONARY DISEASE EXACERBATION. 2. [id number] HYPOXIC AND HYPERCAPNIC RESPIRATORY FAILURE. 3. CHRONIC KIDNEY DISEASE STAGE 3. 4. OBESITY WITH HYPOVENTILATION SYNDROME. 5. STABLE PLEURAL EFFUSION. 6. COR PULMONALE. 7. [id number] PULMONARY HYPERTENSION. 8. SEVERE DECONDITIONING. 9. CHRONIC ATRIAL FIBRILLATION WITH CONTROLLED VENTRICULAR RESPONSE. CURRENT MEDICATIONS: 1. Albuterol 2.5 mg nebulizer q.2 hours p.r.n. 2. DuoNeb q.6 hours while awake. 3. Midodrine 5 mg p.o. 3 times a day. 4. Heparin 5000 units subcutaneous q.8 hours. 5. Lipitor 40 mg p.o. at bedtime. 6. Sildenafil 20 mg p.o. 3 times a day. 7. Tylenol 650 mg p.o. q.4 hours p.r.n. 8. Gabapentin 600 mg p.o. q.12 hours. 9. Colace 100 mg p.o. b.i.d. 10. Magnesium oxide 400 mg p.o. daily. 11. MiraLax 17 grams p.o. daily p.r.n. 12. Synthroid 0.15 mg p.o. every morning. 13. Thiamine 100 mg p.o. daily. DIET: Cardiac. ACTIVITY: As per facility standards. HISTORY OF PRESENT ILLNESS: The patient is a 71-year-old female with a past medical history of pulmonary hypertension and COPD. The patient presented to the emergency department with a chief complaint of altered mental status. The patient had been transferred to [facility] 24 hours prior to presentation here and just 24 hours from that the patient was at [facility] in [place]. According to long-term staff, the patient was hypoxic and difficulty applying BiPAP and subsequently was transferred to the emergency department for evaluation, where the patient was found to be obtunded. Her workup revealed right upper lobe infiltrate, hypercapnic respiratory failure. The patient was started on empiric antibiotics, BiPAP and was referred to the hospitalist for admission and management. HOSPITAL COURSE: The patient was admitted to [facility]. The patient was covered with Rocephin and vancomycin for the left upper lobe infiltrate, which had actually been treated at [facility]. The patient made an improvement from an infectious standpoint and completed a course of antibiotics. However, the patient remained increasing BiPAP dependent and with hypercapnia, as well as hypoxia. The patient was seen by Ricarda with Pulmonology and the patient was started on Trilogy with overall improvement of her symptoms. The patient's chest x-ray revealed improvement and the patient continued on scheduled and p.r.n. nebulizers and with gradual improvement of symptoms, was able to work with physical therapy with some improvement in her symptoms. However, given the patient does require Trilogy machine, it has been very difficult to place the patient in assist facility and it was felt to be best served in an LTAC at the recommendation of Pulmonology. We do appreciate Dr. Chowdary's input with this. The patient is currently stable for discharge. DIAGNOSTICS/LABORATORY VALUES: Hematology obtained 01/06/2017: WBC 7.1, hemoglobin 10.4, hematocrit 32.2, platelet count 294,000. ABG obtained on 12/09/2016: pH 7.43, PCO2 63.7, PaO2 44.9, bicarb 41.5, total CO2 43.5, oxygen saturation 80.5 with FiO2 of 55%. Chemistries obtained on 01/06/2017: Sodium 141, potassium 4.2, chloride 104, carbon dioxide 24, BUN 14, creatinine 1.08, glucose 97, calcium 10.1, magnesium 1.9, bilirubin 0.8, AST 43, ALT 28, alkaline phosphatase 115, CK 20, CK-MB 0.55, troponin 0.028. Total protein 6.8, albumin 3.3, TSH 1.21, free T4 1.55. Urinalysis obtained on 12/03/2016: Color yellow, appearance cloudy, pH 5.0, specific gravity 1.016, protein 100, glucose negative, ketones negative, nitrites negative, bilirubin negative, urobilinogen negative, leukocyte esterase negative, WBC 15, RBC 15, bacteria trace, epithelial squamous cells 1, mucous rare, sulfuric acid 40. Microbiology, blood cultures obtained on 12/03/2016 revealed no growth. Chest x-ray obtained on 12/06/2016 revealed air space disease of the lower lobes, left greater than right with pleural effusions, overall stable. Evidence of cardiomegaly. Hand x-ray obtained on 12/26/2016 revealed soft tissue swelling without fracture, multifocal osteoarthritis. PHYSICAL EXAMINATION: GENERAL: The patient is a well developed, frail appearing, 71-year-old female who is awake, alert and oriented to person, place, time, and situation. She is verbal, conversational, does not appear to be in any acute distress. VITAL SIGNS: As follows: Temperature is 97.6, pulse 68, respirations 16, blood pressure 132/76, oxygen saturation 98% on 4 liters nasal cannula. SKIN: Warm and dry. No rash. Not diaphoretic. HEENT: Pupils equal, round, reactive to light and accommodation. Conjunctivae pink. NECK: No JVP. CARDIOVASCULAR SYSTEM: Heart is regular. There is no murmur or rub. CHEST: Diminished, symmetrical, unlabored. ABDOMEN: Soft, nontender, nondistended. BACK: No CVA tenderness, sacral edema. EXTREMITIES: No clubbing, cyanosis, edema. PSYCHIATRIC: Appropriate affect. Pleasant mood. DISCHARGE PLAN: The patient will be received on transfer to Dr. Toño Vill[facility]ue[facility]. TIME SPENT: Time spent on this discharge including assessment, plan, physical examination, patient education, multispecialty collaboration and resource alignment is 40 minutes. DICTATING PHYSICIAN: LEÓN ABBASI NP [id number] PHY#: [id number] ID: [id number] JOB#: [id number] ACCT: [id number] cc:LEÓN COX M.D. LEÓN ABBASI NP > MTDD
[2017-01-11] MEDS: GABAPENTIN 300 MG CAPSULE PO SCH (10:04)
[2017-01-11] MEDS: THIAMINE HCL 100 MG TABLET PO SCH (10:04)
[2017-01-11] MEDS: DOCUSATE SODIUM 100 MG CAPSULE PO SCH (10:04)
[2017-01-11] MEDS: MAGNESIUM OXIDE 400 MG TABLET PO SCH (10:04)
[2017-01-11] MEDS: SILDENAFIL CITRATE 20 MG TABLET PO SCH (10:05)
[2017-01-11] MEDS: ACETAMINOPHEN 325 MG TABLET PO PRN (10:05)
[2017-01-11] MEDS: MIDODRINE HCL 5 MG TABLET PO SCH (10:06)
--- NOTE | 2017-01-11 11:17 | PDOC PROGRESS REPORT ---
Subjective Progress Note for:: 01/11/17 Subjective:: awaiting a bed Physical Exam Vital Signs: Temp Pulse Resp BP Pulse Ox 97.6 F 94 21 H 132/76 H 93 01/11/17 07:46 01/11/17 08:54 01/11/17 08:54 01/11/17 07:46 01/11/17 08:54 Intake & Output 01/10/17 01/11/17 01/12/17 06:59 06:59 06:59 Intake Total 640 1020 Output Total 700 1600 Balance -60 -580 Weight 111 kg 111 kg General appearance: PRESENT: no acute distress, cooperative, disheveled, morbidly obese, well-developed Head exam: PRESENT: atraumatic Eye exam: PRESENT: conjunctiva pale, EOMI Mouth exam: PRESENT: dry mucosa, neck supple, tongue midline Neck exam: ABSENT: carotid bruit, JVD, lymphadenopathy, thyromegaly Respiratory exam: PRESENT: decreased breath sounds, prolonged expiratory phas, rhonchi Cardiovascular exam: PRESENT: RRR, +S1, +S2 Pulses: PRESENT: normal radial pulses GI/Abdominal exam: PRESENT: normal bowel sounds, soft. ABSENT: distended, guarding, mass, organolmegaly, rebound, tenderness Rectal exam: PRESENT: deferred Musculoskeletal exam: PRESENT: normal inspection Neurological exam: PRESENT: alert, awake Psychiatric exam: PRESENT: normal mood Skin exam: PRESENT: dry, warm Results Laboratory Results: 01/06/17 05:43 01/06/17 05:43 12/03/16 12/03/16 12/03/16 06:20 06:20 12:02 Creatine Kinase < 20 L < 20 L CK-MB (CK-2) 0.55 Troponin I 0.028 NT-Pro-B Natriuret Pep 12/03/16 12/03/16 12/03/16 12:02 18:20 18:20 Creatine Kinase < 20 L CK-MB (CK-2) 0.47 0.32 Troponin I 0.018 0.016 NT-Pro-B Natriuret Pep 12/04/16 12/09/16 04:31 05:13 Creatine Kinase CK-MB (CK-2) Troponin I NT-Pro-B Natriuret Pep 34491 H 6320 H Impressions: Chest X-Ray 12/06/16 00:00 IMPRESSION: NO CHANGE IN APPEARANCE OF THE CHEST. Hand X-Ray 12/26/16 00:00 IMPRESSION: 3rd finger soft tissue swelling without fracture, radiopaque foreign body or soft tissue gas. Multifocal osteoarthritis Assessment & Plan - Diagnosis (1) COPD with acute exacerbation Is this a current diagnosis for this admission?: No (2) Hypoxia Is this a current diagnosis for this admission?: Yes (3) Obesity hypoventilation syndrome Is this a current diagnosis for this admission?: Yes (4) Acute and chronic respiratory failure with hypercapnia Is this a current diagnosis for this admission?: Yes (5) Obstructive sleep apnea Is this a current diagnosis for this admission?: Yes (6) Tobacco dependency Is this a current diagnosis for this admission?: Yes - Plan Summary Plan Summary: awaiting bed allegedly today
[2017-01-11 13:40] VITALS: BP 142/75
== END 2017-01-11 14:00 | DRG 189 ==
LOC: ER 02:09 → EH 06:00 → ICU 09:37 → 3W 17:40 → 4N 12-22 13:50
PROVIDERS: ADMIT Internal Medicine; ATTEND Internal Medicine
PROC: 5A09557 Assistance with Respiratory Ventilation, Greater than 96 Consecutive Hours, Continuous Positive Airway Pressure (ICD-10-PCS; principal; 2016-12-03)
DX: J96.22 Acute and chronic respiratory failure with hypercapnia (principal); I50.33 Acute on chronic diastolic (congestive) heart failure; J44.1 Chronic obstructive pulmonary disease with (acute) exacerbation; I13.0 Hypertensive heart and chronic kidney disease with heart failure and stage 1 through stage 4 chronic kidney disease, or unspecified chronic kidney disease; E66.2 Morbid (severe) obesity with alveolar hypoventilation; Z68.44 Body mass index [BMI] 60.0-69.9, adult; J96.21 Acute and chronic respiratory failure with hypoxia; N18.3 Chronic kidney disease, stage 3 (moderate); I27.2 Other secondary pulmonary hypertension; I48.2 Chronic atrial fibrillation; E78.5 Hyperlipidemia, unspecified; E03.9 Hypothyroidism, unspecified; M19.90 Unspecified osteoarthritis, unspecified site; Z79.899 Other long term (current) drug therapy; Z88.8 Allergy status to other drugs, medicaments and biological substances; Z86.718 Personal history of other venous thrombosis and embolism; Z87.891 Personal history of nicotine dependence
CPT/HCPCS: 36415; 36600; 51702; 71010; 80048; 80053; 80202; 81001; 82550; 82553; 82803; 83735; 83880; 84439; 84443; 84484; 85025; 85027; 87040; 93005; 93010; 94640; 94660; 94799; 96374; 96375; 99285; G8978-GP; G8979-GP; J0696; J1644; J1720; J1940; J2930; J3370; J3480; J3490; J7060; J7620

== ENCOUNTER → 2018-06-15 | Outpatient (CLI) | payer MEDICARE ==
--- NOTE | 2018-06-16 17:13 | XCELERA REPORT ---
[address] [address] Lower Extremity Arterial Evaluation Name: MARIANO HENRY Age: 72 yrs Gender: Female : 1945 Patient Status: Outpatient Patient Location: Study Date: 06/15/2018 10:12 AM Procedure: A color flow and duplex scan of the lower extremity arteries was performed bilaterally with velocity and waveform anaylsis. Reason For Study: ABSENT PULSES R09.89 Ordering Physician: CASANDRA MAYNARD Performed By: Jazmine Vanegas Measurements and Calculations Right Left GRAVITY METER OPERATOR PSV 159.5 145.4 cm/sec Prox PFA PSV -169.9 79.6 cm/sec Prox SFA PSV 122.9 137.5 cm/sec Mid SFA PSV -92.8 -110.6cm/sec Dist SFA PSV -86.4 -118.2cm/sec Prox Pop A PSV 76.6 91.8 cm/sec Dist ARA PSV 109.2 101.2 cm/sec Dist NUDE MODEL PSV 108.1 123.2 cm/sec Rogerio Pedis PSV 77.8 98.1 cm/sec Right Side Arterial Evaluation Normal velocity and triphasic waveforms noted from the Common Femoral artery to the infrageniculate vessels . Biphasic with normal velocity in the Deep Femoral and Dorsalis Pedis arteries. Ankle Brachial index not obtained due to edema. Left Side Arterial Evaluation Normal velocity and triphasic waveforms noted from the Common Femoral artery to the infrageniculate vessels . Biphasic with normal velocity in the Deep Femoral artery. Ankle Brachial index is 1.11 in the Dorsalis Pedis. Interpretation Summary Mild hemodynamically significant lesions in the bilateral lower extremities, on duplex imaging, at rest. Ankle Brachial index on the left is normal. Not obtained on the right due to edema. : CASANDRA MAYNARD > Casandra Maynard
== END ==
LOC: SP 09:37
PROVIDERS: ATTEND Surgery
DX: I89.0 Lymphedema, not elsewhere classified (principal); Z86.718 Personal history of other venous thrombosis and embolism
CPT/HCPCS: 93925

== ENCOUNTER → 2018-10-17 | Outpatient (CLI) | payer MEDICARE ==
[2018-10-17 13:16] LABS: ABSOLUTE BASOPHILS # (AUTO) 0.1 10^3/uL (0.0-0.2); ABSOLUTE EOSINOPHILS # (AUTO) 0.2 10^3/uL (0.0-0.6); ABSOLUTE LYMPHOCYTES (AUTO) 1.3 10^3/uL (0.5-4.7); ABSOLUTE MONOCYTES (AUTO) 0.4 10^3/uL (0.1-1.4); ABSOLUTE NEUT (AUTO) 5.5 10^3/uL (1.7-8.2); BASOPHILS % (AUTO) 1.1 % (0-2); EOSINOPHILS % (AUTO) 3.2 % (0-6); HEMATOCRIT 40.1 % (36.0-47.0); HEMOGLOBIN 12.9 g/dL (12.0-15.5); LYMPHOCYTES % (AUTO) 17.3 % (13-45); MEAN CORPUSCULAR HEMOGLOBIN 29.1 pg (27.0-33.4); MEAN CORPUSCULAR HGB CONC 32.3 g/dL (32.0-36.0); MEAN CORPUSCULAR VOLUME 90 fl (80-97); MONOCYTES % (AUTO) 5.8 % (3-13); PLATELET COUNT 169 10^3/uL (150-450); RED BLOOD COUNT 4.44 10^6/uL (3.72-5.28); RED CELL DISTRIBUTION WIDTH 15.6 % (11.5-14.0); SEGMENTED NEUTROPHILS % (AUTO) 72.6 % (42-78); TOTAL CELLS COUNTED % (AUTO) 100 %; WHITE BLOOD COUNT 7.6 10^3/uL (4.0-10.5)
[2018-10-17 13:46] LABS: ALANINE AMINOTRANSFERASE 30 U/L (9-52); ALBUMIN 3.5 g/dL (3.5-5.0); ALKALINE PHOSPHATASE 88 U/L (38-126); ANION GAP 8 (5-19); ASPARTATE AMINO TRANSFERASE 20 U/L (14-36); BILIRUBIN,DIRECT 0.3 mg/dL (0.0-0.4); BILIRUBIN,TOTAL 0.4 mg/dL (0.2-1.3); BLOOD UREA NITROGEN 28 mg/dL (7-20); CALCIUM 9.2 mg/dL (8.4-10.2); CARBON DIOXIDE 29 mmol/L (22-30); CHLORIDE 105 mmol/L (98-107); GLUCOSE 97 mg/dL (75-110); POTASSIUM 5.5 mmol/L (3.6-5.0); SODIUM 141.5 mmol/L (137-145); TOTAL PROTEIN 6.1 g/dL (6.3-8.2)
[2018-10-18 16:15] LABS: APPEARANCE,URINE SLIGHTLY-CLOUDY; BILIRUBIN,URINE NEGATIVE (NEGATIVE); COLOR,URINE YELLOW; GLUCOSE, URINE NEGATIVE (NEGATIVE); KETONES,URINE NEGATIVE (NEGATIVE); LEUKOCYTE ESTERASE,URINE SMALL (NEGATIVE); NITRITE,URINE NEGATIVE (NEGATIVE); PROTEIN,URINE 100 mg/dL (NEGATIVE); URINE SPECIFIC GRAVITY 1.012; UROBILINOGEN,URINE NEGATIVE mg/dL (<2.0)
== END ==
LOC: OD 12:12
PROVIDERS: ATTEND Internal Medicine Nephrology
DX: I12.9 Hypertensive chronic kidney disease with stage 1 through stage 4 chronic kidney disease, or unspecified chronic kidney disease (principal); N18.3 Chronic kidney disease, stage 3 (moderate)
CPT/HCPCS: 36415; 80053; 81001; 85025

== ENCOUNTER → 2018-11-04 | Outpatient (CLI) | payer MEDICARE | LOC: OD 12:33 | PROVIDERS: ATTEND Internal Medicine Nephrology | DX: E87.5 Hyperkalemia (principal) | CPT/HCPCS: 36415; 84132 ==

== ENCOUNTER 2018-11-16 07:16 | Day surgery (SDC) | payer MEDICARE ==
[~2018-11-16 07:16] MED LIST: KETOROLAC TROMETHAMINE 0.45% 4 DROP/0.4 ML DROPERETTE OD PRN
[2018-11-16] MEDS ORDERED: EPINEPHRINE INJ/PF 1 MG/1 ML AMPULE ONE (07:20)
[2018-11-16] MEDS ORDERED: LIDOCAINE 1% INJ-PF (10 MG/ML) 30 ML SDV ONE (07:21)
[2018-11-16] MEDS ORDERED: CHONDR SU A NA/HYALUR INTRAOC KIT (SURGICARE) ONE (07:21)
[2018-11-16] MEDS: TROPICAMIDE 1% OPH SOLN 3 ML OD PRN ×3 (07:45→08:09)
[2018-11-16] MEDS: CYCLOPENTOLATE 0.2%/PHENYLEPHRINE 1% OPH SOLN 2 ML OD PRN ×3 (07:45→08:09)
[2018-11-16] MEDS: BESIFLOXACIN HCL 0.6% OPH SUSP 5 ML BOTTLE OD PRN ×4 (07:46→08:30)
[2018-11-16] MEDS: TETRACAINE HCL 0.5% OPH SOLN 0.6 ML DROPERETTE OD PRN ×3 (07:47→08:15)
[2018-11-16] MEDS ORDERED: MIDAZOLAM 2 MG/2 ML INJ ONE (07:59)
[2018-11-16] MEDS: TOBRAMYCIN SULFATE/DEXAMETH OPH OINTMENT 3.5 GM ONE ×2 (08:27→08:30)
== END 2018-11-16 09:18 | disposition home or self-care (01) ==
LOC: SC 07:16
PROVIDERS: ATTEND Ophthalmology
DX: H25.11 Age-related nuclear cataract, right eye (principal); J44.9 Chronic obstructive pulmonary disease, unspecified; E78.00 Pure hypercholesterolemia, unspecified; E03.9 Hypothyroidism, unspecified; I12.0 Hypertensive chronic kidney disease with stage 5 chronic kidney disease or end stage renal disease; N18.6 End stage renal disease; G62.9 Polyneuropathy, unspecified; E66.9 Obesity, unspecified; Z68.42 Body mass index [BMI] 45.0-49.9, adult; Z79.82 Long term (current) use of aspirin; Z88.5 Allergy status to narcotic agent; Z79.01 Long term (current) use of anticoagulants; Z79.899 Other long term (current) drug therapy; Z87.891 Personal history of nicotine dependence; Z86.718 Personal history of other venous thrombosis and embolism
CPT/HCPCS: 66984; V2632; J2250; J3490 ×3; A9270; J0171; 142

== ENCOUNTER 2018-11-30 09:32 | Day surgery (SDC) | payer MEDICARE ==
[~2018-11-30 09:32] MED LIST changes: +CHONDR SU A NA/HYALUR INTRAOC KIT (SURGICARE) ONE; +EPINEPHRINE INJ/PF 1 MG/1 ML AMPULE ONE; -KETOROLAC TROMETHAMINE 0.45% 4 DROP/0.4 ML DROPERETTE OD PRN; +KETOROLAC TROMETHAMINE 0.45% 4 DROP/0.4 ML DROPERETTE OS PRN; +LIDOCAINE 1% INJ-PF (10 MG/ML) 30 ML SDV ONE
[2018-11-30] MEDS: BESIFLOXACIN HCL 0.6% OPH SUSP 5 ML BOTTLE OS PRN ×4 (10:01→10:59)
[2018-11-30] MEDS: TROPICAMIDE 1% OPH SOLN 3 ML OS PRN ×3 (10:01→10:21)
[2018-11-30] MEDS: CYCLOPENTOLATE 0.2%/PHENYLEPHRINE 1% OPH SOLN 2 ML OS PRN ×3 (10:01→10:21)
[2018-11-30] MEDS: TETRACAINE HCL 0.5% OPH SOLN 0.6 ML DROPERETTE OS PRN ×3 (10:02→10:46)
[2018-11-30] MEDS ORDERED: MIDAZOLAM 2 MG/2 ML INJ ONE (10:13)
[2018-11-30] MEDS: TOBRAMYCIN SULFATE/DEXAMETH OPH OINTMENT 3.5 GM ONE ×2 (10:52→10:59)
== END 2018-11-30 11:38 | disposition home or self-care (01) ==
LOC: SC 09:32
PROVIDERS: ATTEND Ophthalmology
DX: H25.12 Age-related nuclear cataract, left eye (principal); Z98.41 Cataract extraction status, right eye; J44.9 Chronic obstructive pulmonary disease, unspecified; I10 Essential (primary) hypertension; E78.00 Pure hypercholesterolemia, unspecified; E03.9 Hypothyroidism, unspecified; E66.9 Obesity, unspecified; Z79.01 Long term (current) use of anticoagulants; Z79.899 Other long term (current) drug therapy; Z68.42 Body mass index [BMI] 45.0-49.9, adult
CPT/HCPCS: 66984; V2632; J2250; J3490 ×3; A9270; J0171

== ENCOUNTER → 2018-12-07 | Outpatient (CLI) | payer MEDICARE ==
[2018-12-07 12:23] LABS: HEMATOCRIT 41.8 % (36.0-47.0); HEMOGLOBIN 13.3 g/dL (12.0-15.5); MEAN CORPUSCULAR HEMOGLOBIN 28.3 pg (27.0-33.4); MEAN CORPUSCULAR HGB CONC 31.7 g/dL (32.0-36.0); MEAN CORPUSCULAR VOLUME 89 fl (80-97); PLATELET COUNT 151 10^3/uL (150-450); RED BLOOD COUNT 4.68 10^6/uL (3.72-5.28); RED CELL DISTRIBUTION WIDTH 14.9 % (11.5-14.0); WHITE BLOOD COUNT 8.1 10^3/uL (4.0-10.5)
[2018-12-07 12:47] LABS: ANION GAP 12 (5-19); BLOOD UREA NITROGEN 33 mg/dL (7-20); CALCIUM 8.7 mg/dL (8.4-10.2); CARBON DIOXIDE 27 mmol/L (22-30); CHLORIDE 105 mmol/L (98-107); GLUCOSE 97 mg/dL (75-110); SODIUM 143.7 mmol/L (137-145)
== END ==
LOC: OD 11:25
PROVIDERS: ATTEND Internal Medicine Nephrology
DX: I12.9 Hypertensive chronic kidney disease with stage 1 through stage 4 chronic kidney disease, or unspecified chronic kidney disease (principal); N18.3 Chronic kidney disease, stage 3 (moderate); E66.9 Obesity, unspecified; E78.5 Hyperlipidemia, unspecified
CPT/HCPCS: 36415; 80048; 85027

== ENCOUNTER → 2019-04-10 | Outpatient (CLI) | payer MEDICARE ==
[2019-04-10 14:54] LABS: HEMATOCRIT 40.8 % (36.0-47.0); HEMOGLOBIN 13.1 g/dL (12.0-15.5); MEAN CORPUSCULAR HEMOGLOBIN 28.6 pg (27.0-33.4); MEAN CORPUSCULAR HGB CONC 32.1 g/dL (32.0-36.0); MEAN CORPUSCULAR VOLUME 89 fl (80-97); PLATELET COUNT 133 10^3/uL (150-450); RED BLOOD COUNT 4.59 10^6/uL (3.72-5.28); RED CELL DISTRIBUTION WIDTH 15.7 % (11.5-14.0); WHITE BLOOD COUNT 6.9 10^3/uL (4.0-10.5)
[2019-04-10 15:01] LABS: APPEARANCE,URINE SLIGHTLY-CLOUDY; BILIRUBIN,URINE NEGATIVE (NEGATIVE); COLOR,URINE YELLOW; GLUCOSE, URINE NEGATIVE (NEGATIVE); KETONES,URINE NEGATIVE (NEGATIVE); LEUKOCYTE ESTERASE,URINE TRACE (NEGATIVE); NITRITE,URINE NEGATIVE (NEGATIVE); PROTEIN,URINE >=500 mg/dL (NEGATIVE); UROBILINOGEN,URINE NEGATIVE mg/dL (<2.0)
[2019-04-10 15:15] LABS: ANION GAP 6 (5-19); BLOOD UREA NITROGEN 46 mg/dL (7-20); CALCIUM 8.5 mg/dL (8.4-10.2); CARBON DIOXIDE 32 mmol/L (22-30); CHLORIDE 102 mmol/L (98-107); GLUCOSE 90 mg/dL (75-110); POTASSIUM 5.2 mmol/L (3.6-5.0)
== END ==
LOC: OD 13:38
PROVIDERS: ATTEND Nurse Practitioner Family
DX: I12.9 Hypertensive chronic kidney disease with stage 1 through stage 4 chronic kidney disease, or unspecified chronic kidney disease (principal); N18.3 Chronic kidney disease, stage 3 (moderate); E87.5 Hyperkalemia; R80.9 Proteinuria, unspecified; E03.9 Hypothyroidism, unspecified
CPT/HCPCS: 36415; 80048; 81001; 84443; 85027

== ENCOUNTER 2019-05-17 11:03 | Inpatient (IN) | payer MEDICARE ==
[2019-05-17 11:22] LABS: ABSOLUTE BASOPHILS # (AUTO) 0.1 10^3/uL (0.0-0.2); ABSOLUTE EOSINOPHILS # (AUTO) 0.2 10^3/uL (0.0-0.6); ABSOLUTE LYMPHOCYTES (AUTO) 0.8 10^3/uL (0.5-4.7); ABSOLUTE MONOCYTES (AUTO) 0.4 10^3/uL (0.1-1.4); ABSOLUTE NEUT (AUTO) 4.9 10^3/uL (1.7-8.2); EOSINOPHILS % (AUTO) 3.2 % (0-6); HEMATOCRIT 38.2 % (36.0-47.0); HEMOGLOBIN 12.1 g/dL (12.0-15.5); LYMPHOCYTES % (AUTO) 12.8 % (13-45); MEAN CORPUSCULAR HEMOGLOBIN 28.2 pg (27.0-33.4); MEAN CORPUSCULAR HGB CONC 31.7 g/dL (32.0-36.0); MEAN CORPUSCULAR VOLUME 89 fl (80-97); MONOCYTES % (AUTO) 5.7 % (3-13); PLATELET COUNT 118 10^3/uL (150-450); RED BLOOD COUNT 4.29 10^6/uL (3.72-5.28); RED CELL DISTRIBUTION WIDTH 15.2 % (11.5-14.0); SEGMENTED NEUTROPHILS % (AUTO) 77.3 % (42-78); TOTAL CELLS COUNTED % (AUTO) 100 %; WHITE BLOOD COUNT 6.4 10^3/uL (4.0-10.5)
[2019-05-17 11:45] LABS: ALBUMIN 3.5 g/dL (3.5-5.0); ALKALINE PHOSPHATASE 87 U/L (38-126); ANION GAP 12 (5-19); ASPARTATE AMINO TRANSFERASE 16 U/L (14-36); BILIRUBIN,DIRECT 0.2 mg/dL (0.0-0.4); BILIRUBIN,TOTAL 0.6 mg/dL (0.2-1.3); BLOOD UREA NITROGEN 32 mg/dL (7-20); CALCIUM 8.9 mg/dL (8.4-10.2); CARBON DIOXIDE 23 mmol/L (22-30); CHLORIDE 109 mmol/L (98-107); CREATINE KINASE 49 U/L (30-135); GLUCOSE 128 mg/dL (75-110); POTASSIUM 5.1 mmol/L (3.6-5.0); TOTAL PROTEIN 6.2 g/dL (6.3-8.2)
[2019-05-17 11:57] LABS: CREATINE KINASE MB 1.36 ng/mL (<4.55)
[2019-05-17 11:58] LABS: TROPONIN I < 0.012 ng/mL
--- NOTE | 2019-05-17 12:02 | ER Document Report ---
ED Medical Screen (RME) - General Chief Complaint: Shortness Of Breath Stated Complaint: RESPIRATORY DISTRESS Time Seen by Provider: 05/17/19 11:56 Primary Care Provider: Amanda CARDENAS MD [Primary Care Provider] - Follow up as needed Mode of Arrival: Medic Information source: Patient Notes: 73-year-old female presented to ED for complaint of difficulty breathing this morning. She checked her O2 sat was 80%. She states her oxygen trilogy machine was not working last night that she uses for sleep. She does have a history of high blood pressure cholesterol COPD CHF and stage III kidney disease. On 02 1 L she sat in the 100% we will continue to titrate the oxygen down to room temperature is longer she stays above 94 until the next provider examines her I have greeted and performed a rapid initial assessment of this patient. A comprehensive ED assessment and evaluation of the patient, analysis of test results and completion of medical decision making process will be conducted by an additional ED providers. TRAVEL OUTSIDE OF THE [place] IN LAST 30 DAYS: No - Related Data Allergies/Adverse Reactions: morphine Adverse Reaction (Intermediate, Verified 05/17/19 11:35) VOMITING oxycodone [From Percocet] Adverse Reaction (Intermediate, Verified 05/17/19 11:35) FEELS FUNNY codeine [Codeine] Adverse Reaction (Mild, Verified 05/17/19 11:35) VOMITING prednisone Adverse Reaction (Mild, Verified 05/17/19 11:35) Nausea Past Medical History - Past Medical History Cardiac Medical History: Reports: Hx Atrial Fibrillation, Hx Congestive Heart Failure, Hx DVT, Hx Hypercholesterolemia, Hx Hypertension Denies: Hx Heart Attack, Hx Pulmonary Embolism Pulmonary Medical History: Reports: Hx COPD, Hx Sleep Apnea Denies: Hx Asthma Neurological Medical History: Denies: Hx Cerebrovascular Accident, Hx Seizures Endocrine Medical History: Reports: Hx Hypothyroidism. Denies: Hx Diabetes Mellitus Type 1, Hx Diabetes Mellitus Type 2, Hx Hyperthyroidism Renal/ Medical History: Denies: Hx Peritoneal Dialysis GI Medical History: Denies: Hx Cirrhosis, Hx Hepatitis, Hx Hiatal Hernia, Hx Ulcer Musculoskeltal Medical History: Reports Hx Arthritis Psychiatric Medical History: Denies: Hx Depression Infectious Medical History: Denies: Hx C-Diff, Hx Hepatitis, Hx MRSA Past Surgical History: Reports: Hx Orthopedic Surgery, Hx Tonsillectomy. Denies: Hx Hysterectomy, Hx Mastectomy, Hx Open Heart Surgery, Hx Pacemaker Physical Exam - Vital signs Vitals: Temp Resp BP Pulse Ox 98.0 F 18 157/92 H 99 05/17/19 11:24 05/17/19 11:24 05/17/19 11:24 05/17/19 11:24 Course - Vital Signs Vital signs: Temp Pulse Resp BP Pulse Ox 98.0 F 18 157/92 H 99 05/17/19 11:24 05/17/19 11:24 05/17/19 11:24 05/17/19 11:24 - Laboratory Result Diagrams: 05/17/19 11:10 05/17/19 11:10 Laboratory results interpreted by me: 05/17/19 05/17/19 11:10 11:10 MCHC 31.7 L RDW 15.2 H Plt Count 118 L Lymph % (Auto) 12.8 L Potassium 5.1 H Chloride 109 H BUN 32 H Creatinine 1.50 H Est GFR ( Amer) 41 L Est GFR (MDRD) Non-Af 34 L Glucose 128 H Total Protein 6.2 L Doctor's Discharge - Discharge Referrals: Amanda CARDENAS MD [Primary Care Provider] - Follow up as needed
--- NOTE | 2019-05-17 12:06 | RADIOLOGY REPORT (SQ) ---
EXAM DESCRIPTION: CHEST SINGLE VIEW COMPLETED DATE/TIME: 05/17/2019 11:54 am REASON FOR STUDY: bed 4 db difficulty breathing COMPARISON: 07/27/2016 NUMBER OF VIEWS: One view. TECHNIQUE: Single frontal radiographic view of the chest acquired. LIMITATIONS: None. FINDINGS: LUNGS AND PLEURA: There is bibasilar interstitial airspace disease and small effusions. MEDIASTINUM AND HILAR STRUCTURES: No masses. Contour normal. HEART AND VASCULAR STRUCTURES: Heart is enlarged with central vascular prominence. BONES: No acute findings. HARDWARE: None in the chest. OTHER: No other significant finding. IMPRESSION: Cardiomegaly and vascular congestion. Small effusions. TECHNICAL DOCUMENTATION: JOB ID: [id number] [employer]- All Rights Reserved Reading location - IP/workstation name: [email or web address]
[2019-05-17 13:09] LABS: APPEARANCE,URINE CLEAR; BILIRUBIN,URINE NEGATIVE (NEGATIVE); COLOR,URINE YELLOW; GLUCOSE, URINE NEGATIVE (NEGATIVE); KETONES,URINE NEGATIVE (NEGATIVE); LEUKOCYTE ESTERASE,URINE NEGATIVE (NEGATIVE); NITRITE,URINE NEGATIVE (NEGATIVE); PROTEIN,URINE >=500 mg/dL (NEGATIVE); URINE SPECIFIC GRAVITY 1.012; UROBILINOGEN,URINE NEGATIVE mg/dL (<2.0)
[2019-05-17] MEDS ORDERED: METHYLPREDNISOLONE INJ 125 MG/2 ML SDV IV ONE (16:56)
[2019-05-17] MEDS ORDERED: IPRATROPIUM/ALBUTEROL 0.5-2.5 MG/3 ML AMPUL NEB SCH (17:00)
--- NOTE | 2019-05-17 17:03 | ER Document Report ---
ED General - General Chief Complaint: Shortness Of Breath Stated Complaint: RESPIRATORY DISTRESS Time Seen by Provider: 05/17/19 11:56 Primary Care Provider: Amanda CARDENAS MD [ACTIVE STAFF] - Follow up as needed Mode of Arrival: Medic TRAVEL OUTSIDE OF THE [place] IN LAST 30 DAYS: No - HPI Notes: 73f with PMH of remote pneumonia, diastolic heart failure, severe pulmonary hypertension, atrial fibrillation, obstructive sleep apnea, morbid obesity, hy poventilation syndrome, venous stasis, deep vein thrombosis, stage III chronic kidney disease, renal insufficiency and recent GI bleed, reports compliance with her medications including Bumex 2 mg, sildenafil 20 mg 3 times daily, tramadol 50 nightly, Eliquis 2.5 twice daily, levothyroxine 0.015 twice daily, carvedilol 6.25 twice daily, atorvastatin 40 nightly, gabapentin 600 twice daily, "2 Tyleno l nightly" - Related Data Allergies/Adverse Reactions: morphine Adverse Reaction (Intermediate, Verified 05/17/19 11:35) VOMITING oxycodone [From Percocet] Adverse Reaction (Intermediate, Verified 05/17/19 11:35) FEELS FUNNY codeine [Codeine] Adverse Reaction (Mild, Verified 05/17/19 11:35) VOMITING prednisone Adverse Reaction (Mild, Verified 05/17/19 11:35) Nausea Past Medical History - General Information source: Patient - Social History Smoking Status: Former Smoker Family History: Reviewed & Not Pertinent Patient has suicidal ideation: No Patient has homicidal ideation: No - Past Medical History Cardiac Medical History: Reports: Hx Atrial Fibrillation, Hx Congestive Heart Failure, Hx DVT, Hx Hypercholesterolemia, Hx Hypertension Denies: Hx Heart Attack, Hx Pulmonary Embolism Pulmonary Medical History: Reports: Hx COPD, Hx Sleep Apnea Denies: Hx Asthma Neurological Medical History: Denies: Hx Cerebrovascular Accident, Hx Seizures Endocrine Medical History: Reports: Hx Hypothyroidism. Denies: Hx Diabetes Mellitus Type 1, Hx Diabetes Mellitus Type 2, Hx Hyperthyroidism Renal/ Medical History: Denies: Hx Peritoneal Dialysis GI Medical History: Denies: Hx Cirrhosis, Hx Hepatitis, Hx Hiatal Hernia, Hx Ulcer Musculoskeletal Medical History: Reports Hx Arthritis Psychiatric Medical History: Denies: Hx Depression Infectious Medical History: Denies: Hx C-Diff, Hx Hepatitis, Hx MRSA Past Surgical History: Reports: Hx Orthopedic Surgery, Hx Tonsillectomy. Denies: Hx Hysterectomy, Hx Mastectomy, Hx Open Heart Surgery, Hx Pacemaker Physical Exam - Vital signs Vitals: Temp Pulse Ox 98.1 F 91 L 05/17/19 11:04 05/17/19 11:04 Course - Vital Signs Vital signs: Temp Pulse Resp BP Pulse Ox 98 F 17 162/90 H 89 L 05/17/19 19:00 05/17/19 23:01 05/17/19 23:01 05/17/19 23:01 - Laboratory Result Diagrams: 05/17/19 11:10 05/17/19 11:10 Laboratory results interpreted by me: 05/17/19 05/17/19 05/17/19 11:10 11:10 11:10 MCHC 31.7 L RDW 15.2 H Plt Count 118 L Lymph % (Auto) 12.8 L Carbonic Acid ABG pCO2 ABG pO2 ABG HCO3 ABG Total CO2 Potassium 5.1 H Chloride 109 H BUN 32 H Creatinine 1.50 H Est GFR ( Amer) 41 L Est GFR (MDRD) Non-Af 34 L Glucose 128 H NT-Pro-B Natriuret Pep 2140 H Total Protein 6.2 L Urine Protein 05/17/19 05/17/19 12:40 22:30 MCHC RDW Plt Count Lymph % (Auto) Carbonic Acid 1.43 H ABG pCO2 47.4 H ABG pO2 77.0 L ABG HCO3 25.4 H ABG Total CO2 26.9 H Potassium Chloride BUN Creatinine Est GFR ( Amer) Est GFR (MDRD) Non-Af Glucose NT-Pro-B Natriuret Pep Total Protein Urine Protein >=500 H - EKG Interpretation by Me Additional EKG results interpreted by me: 05/17/19 23:54 EKG reviewed today compared to 11/28/2016 today is again A. fib voltage overall is fairly improved compared to prior but still diminished. No electrical alternans. No ST elevations depressions rate 77. No other T wave changes or other new findings today. Discharge - Discharge Clinical Impression: Hypoxia, COPD (chronic obstructive pulmonary disease), Heart failure Disposition: ADMITTED INPATIENT Unit Admitted: IMCU Referrals: Amanda CARDENAS MD [ACTIVE STAFF] - Follow up as needed
[2019-05-17 18:32] LABS: VENOUS BLOOD BASE EXCESS 1.1 mmol/L; VENOUS BLOOD HCO3 28.8 mmol/L (20-32); VENOUS BLOOD PCO2 59.7 mmHg (35-63); VENOUS BLOOD PH 7.3 (7.30-7.42)
[2019-05-17] MEDS ORDERED: IPRATROPIUM/ALBUTEROL 0.5-2.5 MG/3 ML AMPUL NEB ONE ×2 (18:45→23:03)
[2019-05-17] MEDS ORDERED: FUROSEMIDE INJ/PF 20 MG/2 ML SDV IV ONE (22:05)
--- NOTE | 2019-05-17 23:40 | EKG REPORT ---
SEVERITY:- ABNORMAL ECG - ATRIAL FIBRILLATION BORDERLINE T ABNORMALITIES, ANT-LAT LEADS : Confirmed by: Cecilia Fitch 17-May-2019 23:40:13
[2019-05-17 23:51] LABS: ARTERIAL BLOOD BASE EXCESS -0.7 mmol/L; ARTERIAL BLOOD FIO2 36%; ARTERIAL BLOOD H2CO3 1.43 mmol/L (1.05-1.35); ARTERIAL BLOOD HCO3 25.4 mmol/L (20-24); ARTERIAL BLOOD O2 SATURATION 94.7 % (94-98); ARTERIAL BLOOD PCO2 47.4 mmHg (35-45); ARTERIAL BLOOD PH 7.35 (7.35-7.45); ARTERIAL BLOOD TOTAL CO2 26.9 mmol/L (21-25)
[2019-05-18] MEDS ORDERED: HYDRALAZINE HCL INJ/PF 20 MG/1 ML SDV IV PRN (02:50)
[2019-05-18] MEDS ORDERED: LACTULOSE SYRUP 20 GM/30 ML UDCUP PO ONE (02:50)
[2019-05-18] MEDS ORDERED: MAG HYDROX/AL HYDROX/SIMETH SUSP 30 ML UDCUP PO PRN (02:51)
[2019-05-18] MEDS ORDERED: MAGNESIUM HYDROXIDE SUSP 30 ML UDCUP PO PRN (02:51)
[2019-05-18] MEDS ORDERED: ACETAMINOPHEN 325 MG TABLET PO PRN (02:51)
[2019-05-18] MEDS ORDERED: FUROSEMIDE INJ/PF 40 MG/4 ML SDV IV ONE (03:15)
[2019-05-18] MEDS ORDERED: VALSARTAN 160 MG TABLET PO ONE (03:15)
[2019-05-18] MEDS ORDERED: NITROGLYCERIN 5 MG (0.2 MG/HR) PATCH.TD24 TD ONE (03:15)
[2019-05-18] MEDS: HEPARIN SOD (PORCINE) 5,000 UNIT/ML 1 ML VIAL SUBCUT SCH ×2 (05:40→13:07)
--- NOTE | 2019-05-18 06:44 | PDOC H&P ---
History of Present Illness Admission Date/PCP: 05/18/19 02:58 Patient complains of: Shortness of breath History of Present Illness: MARIANO HENRY is a 73 year old female with a past medical history of CKD 3, atrial fibrillation, diastolic heart failure, severe pulmonary hypertension, morbid obesity, obstructive sleep apnea diabetes oxygen and trilogy dependent. She presents with 24 hours of shortness of breath and nonproductive cough and palpitations prompting evaluation in the emergency room. She is found to have pulmonary vascular congestion and uncontrolled hypertension. She is treated for COPD exacerbation and referred to the hospitalist for admission. Patient admits noncompliance with trilogy secondary to unit dysfunction. Otherwise denies c hanges in medications, diet, lifestyle, tachycardia or chest pain. Past Medical History Cardiac Medical History: Reports: Atrial Fibrillation, Congestive Heart Failure, DVT, Hyperlipidema, Hypertension Denies: Myocardial Infarction, Pulmonary Embolism Pulmonary Medical History: Reports: Chronic Obstructive Pulmonary Disease (COPD) , Sleep Apnea Denies: Asthma Neurological Medical History: Denies: Seizures Endocrine Medical History: Reports: Hypothyroidism Denies: Diabetes Mellitus Type 1, Diabetes Mellitus Type 2, Hyperthyroidism GI Medical History: Denies: Cirrhosis, Hepatitis, Hiatal Hernia Musculoskeltal Medical History: Reports: Arthritis Psychiatric Medical History: Denies: Depression Hematology: Denies: Anemia, Sickle Cell Disease Infectious Medical History: Denies: Clostridium Difficile, Methicillin-Resistant Staph Aureus Past Surgical History Past Surgical History: Reports: Orthopedic Surgery, Tonsillectomy Denies: Amputation, Hysterectomy, Mastectomy, Pacemaker Social History Information Source: Patient, [facility] Records Smoking Status: Former Smoker Cigarettes Packs Per Day: 2 Electronic Cigarette use?: No Number of Years Smokin Last Time Smoked: 10/14/2016 Frequency of Alcohol Use: None Drugs: None Hx Prescription Drug Abuse: No - Advance Directive Resuscitation Status: Full Code Family History Family History: DM, Hypertension Parental Family History Reviewed: Yes Children Family History Reviewed: Yes Sibling(s) Family History Reviewed.: Yes Medication/Allergy Home Medications: Levothyroxine Sodium [Synthroid 0.15 mg Tablet] 0.15 mg PO DAILY 12/03/16 Atorvastatin Calcium [Lipitor 40 mg Tablet] 40 mg PO QHS tablet 12/28/16 Bumetanide [Bumex 1 mg Tablet] 2 mg PO DAILY tablet 12/28/16 Gabapentin [Neurontin 300 mg Capsule] 600 mg PO Q12 capsule 12/28/16 Sildenafil Citrate [Revatio 20 mg Tablet] 20 mg PO MEALS tablet 12/28/16 Apixaban [Eliquis 2.5 mg Tablet] 2.5 mg PO BID 11/10/18 Carvedilol [Coreg 3.125 mg Tablet] 3.125 mg PO Q12 11/10/18 Tramadol HCl [Ultram] 50 mg PO Q4HP PRN 11/10/18 Allergies/Adverse Reactions: morphine Adverse Reaction (Intermediate, Verified 05/17/19 11:35) VOMITING oxycodone [From Percocet] Adverse Reaction (Intermediate, Verified 05/17/19 11:35) FEELS FUNNY codeine [Codeine] Adverse Reaction (Mild, Verified 05/17/19 11:35) VOMITING prednisone Adverse Reaction (Mild, Verified 05/17/19 11:35) Nausea Review of Systems Constitutional: PRESENT: fatigue, weakness, weight gain Eyes: ABSENT: visual disturbances Ears: ABSENT: hearing changes Cardiovascular: PRESENT: dyspnea on exertion, edema, orthropnea, palpitations. ABSENT: chest pain Respiratory: ABSENT: cough, hemoptysis Gastrointestinal: ABSENT: abdominal pain, constipation, diarrhea, hematemesis, hematochezia, nausea, vomiting Genitourinary: ABSENT: dysuria, hematuria Musculoskeletal: ABSENT: joint swelling Integumentary: ABSENT: rash, wounds Neurological: ABSENT: abnormal gait, abnormal speech, confusion, dizziness, focal weakness, syncope Psychiatric: ABSENT: anxiety, depression, homidical ideation, suicidal ideation Endocrine: ABSENT: cold intolerance, heat intolerance, polydipsia, polyuria Hematologic/Lymphatic: ABSENT: easy bleeding, easy bruising Physical Exam Vital Signs: Temp Pulse Resp BP Pulse Ox 97.9 F 89 17 148/76 H 97 05/18/19 01:01 05/18/19 01:55 05/18/19 01:55 05/18/19 01:01 05/18/19 01:55 Intake & Output 05/16/19 05/17/19 05/18/19 11:59 11:59 11:59 Intake Total 90 Output Total 1350 Balance -1260 Weight 136.078 kg 142.3 kg General appearance: PRESENT: cooperative, mild distress, morbidly obese, well- developed, well-nourished Head exam: PRESENT: atraumatic, normocephalic Eye exam: PRESENT: conjunctiva pink, EOMI, PERRLA. ABSENT: scleral icterus Ear exam: PRESENT: normal external ear exam Mouth exam: PRESENT: moist, tongue midline Neck exam: PRESENT: JVD. ABSENT: carotid bruit, lymphadenopathy, thyromegaly Respiratory exam: PRESENT: accessory muscle use, crackles, retraction, symmetrical, tachypnea. ABSENT: rales Cardiovascular exam: PRESENT: gallop, irregular rhythm, +S1, +S2 Pulses: PRESENT: normal dorsalis pedis pul Vascular exam: PRESENT: normal capillary refill GI/Abdominal exam: PRESENT: normal bowel sounds, soft. ABSENT: distended, guarding, mass, organolmegaly, rebound, tenderness Rectal exam: PRESENT: deferred Extremities exam: PRESENT: full ROM, +1 edema. ABSENT: calf tenderness, clubbing, pedal edema Neurological exam: PRESENT: alert, awake, oriented to person, oriented to place, oriented to time, oriented to situation, CN II-XII grossly intact. ABSENT: motor sensory deficit Psychiatric exam: PRESENT: appropriate affect, normal mood. ABSENT: homicidal ideation, suicidal ideation Skin exam: PRESENT: dry, intact, warm. ABSENT: cyanosis, rash Results Laboratory Results: 05/17/19 11:10 05/17/19 11:10 05/17/19 05/17/19 05/17/19 11:10 11:10 12:40 WBC 6.4 RBC 4.29 Hgb 12.1 Hct 38.2 MCV 89 MCH 28.2 MCHC 31.7 L RDW 15.2 H Plt Count 118 L Seg Neutrophils % 77.3 Carbonic Acid HCO3/H2CO3 Ratio ABG pH ABG pCO2 ABG pO2 ABG HCO3 ABG O2 Saturation ABG Base Excess VBG pH VBG pCO2 VBG HCO3 VBG Base Excess FiO2 Sodium 143.8 Potassium 5.1 H Chloride 109 H Carbon Dioxide 23 Anion Gap 12 BUN 32 H Creatinine 1.50 H Est GFR ( Amer) 41 L Glucose 128 H Calcium 8.9 Total Bilirubin 0.6 AST 16 Alkaline Phosphatase 87 Total Protein 6.2 L Albumin 3.5 Urine Color YELLOW Urine Appearance CLEAR Urine pH 6.0 Ur Specific [place] 1.012 Urine Protein >=500 H Urine Glucose (UA) NEGATIVE Urine Ketones NEGATIVE Urine Blood NEGATIVE Urine Nitrite NEGATIVE Ur Leukocyte Esterase NEGATIVE Urine WBC (Auto) 4 Urine RBC (Auto) 1 05/17/19 05/17/19 17:55 22:30 WBC RBC Hgb Hct MCV MCH MCHC RDW Plt Count Seg Neutrophils % Carbonic Acid 1.43 H HCO3/H2CO3 Ratio 17:1 ABG pH 7.35 ABG pCO2 47.4 H ABG pO2 77.0 L ABG HCO3 25.4 H ABG O2 Saturation 94.7 ABG Base Excess -0.7 VBG pH 7.30 VBG pCO2 59.7 VBG HCO3 28.8 VBG Base Excess 1.1 FiO2 36% Sodium Potassium Chloride Carbon Dioxide Anion Gap BUN Creatinine Est GFR ( Amer) Glucose Calcium Total Bilirubin AST Alkaline Phosphatase Total Protein Albumin Urine Color Urine Appearance Urine pH Ur Specific [place] Urine Protein Urine Glucose (UA) Urine Ketones Urine Blood Urine Nitrite Ur Leukocyte Esterase Urine WBC (Auto) Urine RBC (Auto) 05/17/19 05/17/19 05/17/19 11:10 11:10 11:10 Creatine Kinase 49 CK-MB (CK-2) 1.36 Troponin I < 0.012 NT-Pro-B Natriuret Pep 2140 H Impressions: Chest X-Ray 05/17/19 11:07 IMPRESSION: Cardiomegaly and vascular congestion. Small effusions. 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 technician contacted for unit repair (2) Chronic kidney disease (CKD) stage G3a/A1, moderately decreased glomerular filtration rate (GFR) between 45-59 mL/min/1.73 square meter and albuminuria creatinine ratio less than 30 mg/g Is this a current diagnosis for this admission?: Yes Plan: Avoid nephrotoxic meds and doses, follow-up chemistry (3) Moderate to severe pulmonary hypertension Is this a current diagnosis for this admission?: Yes Plan: Continue outpatient sildenafil, oxygen and BiPAP (4) Obstructive sleep apnea Is this a current diagnosis for this admission?: Yes Plan: BiPAP with transition to trilogy (5) Atrial fibrillation Qualifiers: Atrial fibrillation type: chronic Is this a current diagnosis for this admission?: Yes Plan: Rate controlled, continue Coreg and Eliquis
[2019-05-18] MEDS ORDERED: INFLUENZA QUAD (6MOS+) 2019-20 VAC 0.5 ML SYR IM ONE (06:46)
[2019-05-18] MEDS: ASPIRIN 81 MG TABLET, ENT COATED PO SCH (09:25)
[2019-05-18] MEDS: DOCUSATE SODIUM 100 MG CAPSULE PO SCH (09:25)
[2019-05-18] MEDS: VALSARTAN 160 MG TABLET PO SCH ×2 (09:25→21:03)
[2019-05-18 10:31] LABS: ANION GAP 15 (5-19); BLOOD UREA NITROGEN 31 mg/dL (7-20); CARBON DIOXIDE 21 mmol/L (22-30); CHLORIDE 104 mmol/L (98-107); GLUCOSE 249 mg/dL (75-110); POTASSIUM 4.3 mmol/L (3.6-5.0)
[2019-05-18] MEDS: APIXABAN 2.5 MG TABLET PO SCH (17:27)
[2019-05-18] MEDS: SILDENAFIL CITRATE 20 MG TABLET PO SCH (17:27)
[2019-05-18] MEDS: FUROSEMIDE INJ/PF 40 MG/4 ML SDV IV SCH (17:27)
--- NOTE | 2019-05-18 18:58 | Progress Note ---
Provider Note Provider Note: MARIANO HENRY is a 73 year old female with a past medical history of CKD 3, atrial fibrillation, diastolic heart failure, severe pulmonary hypertension, morbid obesity, obstructive sleep apnea diabetes oxygen and trilogy dependent admitted early this morning by the [employer] for heart failure exacerbation, likely secondary to acute on chronic respiratory failure due to trilogy device malfunction. Overnight events, vital signs, laboratory results, imaging reports, and orders reviewed. Agree with plan of care as established by the previous provider. In addition, the patient's home medications have been reconciled and we have resumed her home dose Eliquis, atorvastatin, carvedilol, Sildenafil, and gabapentin. Continuing IV furosemide for diuresis. [employer] has delivered her trilogy machine and made necessary repairs. Patient may use her own trilogy device tonight. Patient is requesting discharge to home tomorrow; certainly if she continues to clinically improve this is a reasonable goal.
[2019-05-18] MEDS ORDERED: CARVEDILOL 6.25 MG TABLET ONE (21:00)
[2019-05-18] MEDS: CARVEDILOL 6.25 MG TABLET PO SCH (21:03)
[2019-05-18] MEDS: GABAPENTIN 300 MG CAPSULE PO SCH (21:03)
[2019-05-18] MEDS ORDERED: PRILOCAINE TOP SCH (22:00)
[2019-05-18] MEDS ORDERED: LIDOCAINE TOP SCH (22:00)
[2019-05-18] MEDS ORDERED: ATORVASTATIN CALCIUM 40 MG TABLET PO SCH (22:00)
[2019-05-19] MEDS ORDERED: LEVOTHYROXINE SODIUM 0.15 MG TABLET PO SCH (06:00)
[2019-05-19] MEDS: FUROSEMIDE INJ/PF 40 MG/4 ML SDV IV SCH (06:19)
[2019-05-19 08:04] LABS: ANION GAP 9 (5-19); BLOOD UREA NITROGEN 37 mg/dL (7-20); CALCIUM 9.3 mg/dL (8.4-10.2); CARBON DIOXIDE 27 mmol/L (22-30); CHLORIDE 108 mmol/L (98-107); GLUCOSE 115 mg/dL (75-110); POTASSIUM 4.4 mmol/L (3.6-5.0)
[2019-05-19] MEDS: SILDENAFIL CITRATE 20 MG TABLET PO SCH ×2 (08:22→12:36)
[2019-05-19] MEDS: DOCUSATE SODIUM 100 MG CAPSULE PO SCH (09:09)
[2019-05-19] MEDS: GABAPENTIN 300 MG CAPSULE PO SCH (09:14)
[2019-05-19] MEDS: CARVEDILOL 6.25 MG TABLET PO SCH (09:15)
[2019-05-19] MEDS: VALSARTAN 160 MG TABLET PO SCH (09:15)
[2019-05-19] MEDS: APIXABAN 2.5 MG TABLET PO SCH (09:16)
[2019-05-19] MEDS ORDERED: NITROGLYCERIN 5 MG (0.2 MG/HR) PATCH.TD24 TD SCH (10:00)
--- NOTE | 2019-05-19 10:58 | PDOC DISCHARGE SUMMARY ---
Impression - Admit/DC Date/PCP Admission Date/Primary Care Provider: 05/18/19 11:20 Discharge Date: 05/19/19 - Discharge Diagnosis (1) Heart failure Is this a current diagnosis for this admission?: Yes (2) Chronic kidney disease (CKD) stage G3a/A1, moderately decreased glomerular filtration rate (GFR) between 45-59 mL/min/1.73 square meter and albuminuria creatinine ratio less than 30 mg/g Is this a current diagnosis for this admission?: Yes (3) Moderate to severe pulmonary hypertension Is this a current diagnosis for this admission?: Yes (4) Obstructive sleep apnea Is this a current diagnosis for this admission?: Yes - Additional Information Resuscitation Status: Full Code Discharge Diet: Cardiac, Other (Comments) Discharge Activity: Activity As Tolerated, Balance Activity w/Rest, Weigh Daily Referrals: [facility] [Provider Group] - 05/26/19 9:00 am ISELA CHOWDARY MD [ACTIVE STAFF] - 08/17/19 11:15 am ANASTASIYA FITCH MD [ACTIVE STAFF] - Amanda FLOYD MD [ACTIVE STAFF] - 09/25/19 10:15 am Prescriptions: Valsartan [Diovan 160 mg Tablet] 160 mg PO Q12 #60 tablet Home Medications: Levothyroxine Sodium [Synthroid 0.15 mg Tablet] 0.15 mg PO DAILY 12/03/16 Atorvastatin Calcium [Lipitor 40 mg Tablet] 40 mg PO QHS tablet 12/28/16 Bumetanide [Bumex 1 mg Tablet] 2 mg PO DAILY tablet 12/28/16 Gabapentin [Neurontin 300 mg Capsule] 600 mg PO Q12 capsule 12/28/16 Sildenafil Citrate [Revatio 20 mg Tablet] 20 mg PO MEALS tablet 12/28/16 Apixaban [Eliquis 2.5 mg Tablet] 2.5 mg PO BID 11/10/18 Tramadol HCl [Ultram] 50 mg PO QHS 11/10/18 Albuterol Sulfate [Albuterol Sulfate Hfa] 2 puff IH Q6HP PRN 05/18/19 Carvedilol [Coreg 6.25 mg Tablet] 6.25 mg PO Q12 05/18/19 Lidocaine/Prilocaine [Emla Cream 30 gm (Clinic Use Only)] 2 gm TOP QHS MDD FEET 05/18/19 Acetaminophen [Tylenol 325 mg Tablet] 650 mg PO Q4HP PRN tablet 05/19/19 Valsartan [Diovan 160 mg Tablet] 160 mg PO Q12 #60 tablet 05/19/19 History of Present Illiness History of Present Illness: Per H&P by Dr. Hernández: MARIANO HENRY is a 73 year old female with a past medical history of CKD 3, atrial fibrillation, diastolic heart failure, severe pulmonary hypertension, morbid obesity, obstructive sleep apnea diabetes oxygen and trilogy dependent. She presents with 24 hours of shortness of breath and nonproductive cough and palpitations prompting evaluation in the emergency room. She is found to have pulmonary vascular congestion and uncontrolled hyperte nsion. She is treated for COPD exacerbation and referred to the hospitalist for admission. Patient admits noncompliance with trilogy secondary to unit dysfunction. Otherwise denies changes in medications, diet, lifestyle, tachycardia or chest pain. Hospital Course Hospital Course: Patient was admitted to [facility] on continuous cardiac telemetry. She is provided supplemental oxygen and BiPAP support until the trilogy machine to be delivered into the respiratory therapy company could make necessary repairs. Her machine was repaired yesterday and she was able to utilize it overnight without difficulty. Her home medication regiment was continued; she was additionally started on valsartan 160 mg twice daily with adequate blood pressure control. She did receive additional IV furosemide for diuresis with excellent urinary output; weight is down 3 kg. The patient's chronic medical conditions otherwise remained stable. She reports that she is now returned to her baseline respiratory status and is requesting to be discharged home. Per nursing, the patient has been ambulatory to bedside commode with minimal support today and without increased dyspnea. Patient is discharged home in stable condition. 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 She is discharged with a prescription for valsartan and is instructed to otherwise resume her prior medication regiment. She is advised to follow-up with her primary care provider within [address] Espinal as scheduled. She is instructed to keep her previously scheduled appointments with Dr. Chowdary and Dr. Floyd. She is instructed to take her medications as prescribed. Eat a low-sodium diet. Weigh herself daily and report any weight gain of greater than 2 pounds to her provider. She is advised to return to the emergency department as needed for concerning symptoms. Physical Exam Vital Signs: Temp Pulse Resp BP Pulse Ox 98.2 F 60 18 153/78 H 96 05/19/19 09:07 05/19/19 09:07 05/19/19 09:07 05/19/19 09:07 05/19/19 09:07 Intake & Output 05/18/19 05/19/19 05/20/19 06:59 06:59 06:59 Intake Total 90 260 473 Output Total 1350 1000 Balance -1260 -740 473 Weight 142.3 kg 139.7 kg General appearance: PRESENT: no acute distress, cooperative, morbidly obese, well-developed, well-nourished Head exam: PRESENT: atraumatic, normocephalic Eye exam: PRESENT: conjunctiva pink, EOMI, PERRLA. ABSENT: scleral icterus Ear exam: PRESENT: normal external ear exam Mouth exam: PRESENT: moist, tongue midline Respiratory exam: PRESENT: clear to auscultation flory, decreased breath sounds - Bibasilar secondary to body habitus, positioning, respiratory effort, symmetrical, unlabored. ABSENT: rales, rhonchi, wheezes Cardiovascular exam: PRESENT: RRR, +S1, +S2. ABSENT: diastolic murmur, rubs, systolic murmur Pulses: PRESENT: normal dorsalis pedis pul Vascular exam: PRESENT: normal capillary refill GI/Abdominal exam: PRESENT: normal bowel sounds, soft. ABSENT: distended, guarding, mass, organolmegaly, rebound, tenderness Rectal exam: PRESENT: deferred Extremities exam: PRESENT: full ROM. ABSENT: calf tenderness, clubbing, pedal edema Musculoskeletal exam: PRESENT: ambulatory Neurological exam: PRESENT: alert, awake, oriented to person, oriented to place, oriented to time, oriented to situation, CN II-XII grossly intact. ABSENT: motor sensory deficit Psychiatric exam: PRESENT: appropriate affect, normal mood. ABSENT: homicidal ideation, suicidal ideation Skin exam: PRESENT: dry, intact, warm. ABSENT: cyanosis, rash Results Laboratory Results: WBC 6.4 10^3/uL (4.0-10.5) 05/17/19 11:10 RBC 4.29 10^6/uL (3.72-5.28) 05/17/19 11:10 Hgb 12.1 g/dL (12.0-15.5) 05/17/19 11:10 Hct 38.2 % (36.0-47.0) 05/17/19 11:10 MCV 89 fl (80-97) 05/17/19 11:10 MCH 28.2 pg (27.0-33.4) 05/17/19 11:10 MCHC 31.7 g/dL (32.0-36.0) L 05/17/19 11:10 RDW 15.2 % (11.5-14.0) H 05/17/19 11:10 Plt Count 118 10^3/uL (150-450) L 05/17/19 11:10 Lymph % (Auto) 12.8 % (13-45) L 05/17/19 11:10 [place] % (Auto) 5.7 % (3-13) 05/17/19 11:10 Eos % (Auto) 3.2 % (0-6) 05/17/19 11:10 Baso % (Auto) 1.0 % (0-2) 05/17/19 11:10 Absolute Neuts (auto) 4.9 10^3/uL (1.7-8.2) 05/17/19 11:10 Absolute Lymphs (auto) 0.8 10^3/uL (0.5-4.7) 05/17/19 11:10 Absolute Monos (auto) 0.4 10^3/uL (0.1-1.4) 05/17/19 11:10 Absolute Eos (auto) 0.2 10^3/uL (0.0-0.6) 05/17/19 11:10 Absolute Basos (auto) 0.1 10^3/uL (0.0-0.2) 05/17/19 11:10 Seg Neutrophils % 77.3 % (42-78) 05/17/19 11:10 Carbonic Acid 1.43 mmol/L (1.05-1.35) H 05/17/19 22:30 HCO3/H2CO3 Ratio 17:1 05/17/19 22:30 ABG pH 7.35 (7.35-7.45) 05/17/19 22:30 ABG pCO2 47.4 mmHg (35-45) H 05/17/19 22:30 ABG pO2 77.0 mmHg (80-100) L 05/17/19 22:30 ABG HCO3 25.4 mmol/L (20-24) H 05/17/19 22:30 ABG Total CO2 26.9 mmol/L (21-25) H 05/17/19 22:30 ABG O2 Saturation 94.7 % (94-98) 05/17/19 22:30 ABG Base Excess -0.7 mmol/L 05/17/19 22:30 VBG pH 7.30 (7.30-7.42) 05/17/19 17:55 VBG pCO2 59.7 mmHg (35-63) 05/17/19 17:55 VBG HCO3 28.8 mmol/L (20-32) 05/17/19 17:55 VBG Base Excess 1.1 mmol/L 05/17/19 17:55 FiO2 36% 05/17/19 22:30 Sodium 144.0 mmol/L (137-145) 05/19/19 07:26 Potassium 4.4 mmol/L (3.6-5.0) 05/19/19 07:26 Chloride 108 mmol/L (98-107) H 05/19/19 07:26 Carbon Dioxide 27 mmol/L (22-30) 05/19/19 07:26 Anion Gap 9 (5-19) 05/19/19 07:26 BUN 37 mg/dL (7-20) H 05/19/19 07:26 Creatinine 1.64 mg/dL (0.52-1.25) H 05/19/19 07:26 Est GFR ( Amer) 37 (>60) L 05/19/19 07:26 Est GFR (MDRD) Non-Af 31 (>60) L 05/19/19 07:26 Glucose 115 mg/dL (75-110) H 05/19/19 07:26 Calcium 9.3 mg/dL (8.4-10.2) 05/19/19 07:26 Total Bilirubin 0.6 mg/dL (0.2-1.3) 05/17/19 11:10 Direct Bilirubin 0.2 mg/dL (0.0-0.4) 05/17/19 11:10 Neonat Total Bilirubin Not Reportable 05/17/19 11:10 Neonat Direct Bilirubin Not Reportable 05/17/19 11:10 Neonat Indirect Bili Not Reportable 05/17/19 11:10 AST 16 U/L (14-36) 05/17/19 11:10 ALT 13 U/L (<35) 05/17/19 11:10 Alkaline Phosphatase 87 U/L (38-126) 05/17/19 11:10 Creatine Kinase 49 U/L (30-135) 05/17/19 11:10 CK-MB (CK-2) 1.36 ng/mL (<4.55) 05/17/19 11:10 Troponin I < 0.012 ng/mL 05/17/19 11:10 NT-Pro-B Natriuret Pep 2140 pg/mL (<125) H 05/17/19 11:10 Total Protein 6.2 g/dL (6.3-8.2) L 05/17/19 11:10 Albumin 3.5 g/dL (3.5-5.0) 05/17/19 11:10 Urine Color YELLOW 05/17/19 12:40 Urine Appearance CLEAR 05/17/19 12:40 Urine pH 6.0 (5.0-9.0) 05/17/19 12:40 Ur Specific [place] 1.012 05/17/19 12:40 Urine Protein >=500 mg/dL (NEGATIVE) H 05/17/19 12:40 Urine Glucose (UA) NEGATIVE mg/dL (NEGATIVE) 05/17/19 12:40 Urine Ketones NEGATIVE mg/dL (NEGATIVE) 05/17/19 12:40 Urine Blood NEGATIVE (NEGATIVE) 05/17/19 12:40 Urine Nitrite NEGATIVE (NEGATIVE) 05/17/19 12:40 Urine Bilirubin NEGATIVE (NEGATIVE) 05/17/19 12:40 Urine Urobilinogen NEGATIVE mg/dL (<2.0) 05/17/19 12:40 Ur Leukocyte Esterase NEGATIVE (NEGATIVE) 05/17/19 12:40 Urine WBC (Auto) 4 /HPF 05/17/19 12:40 Urine RBC (Auto) 1 /HPF 05/17/19 12:40 Urine Bacteria (Auto) TRACE /HPF 05/17/19 12:40 Squamous Epi Cells Auto 1 /HPF 05/17/19 12:40 Urine Mucus (Auto) RARE /LPF 05/17/19 12:40 Urine Ascorbic Acid NEGATIVE (NEGATIVE) 05/17/19 12:40 05/17/19 05/17/19 11:10 11:10 CK-MB (CK-2) 1.36 Troponin I < 0.012 NT-Pro-B Natriuret Pep 2140 H Impressions: Chest X-Ray 05/17/19 11:07 IMPRESSION: Cardiomegaly and vascular congestion. Small effusions. Plan Plan of Treatment: Patient is discharged home in stable condition with home health and telemetry monitoring services for heart failure. She is instructed to: Follow-up with your primary care provider within 1 week. Follow-up with Dr. Fitch as scheduled. Follow up with Dr. Floyd, and Dr. Chowdary as previously scheduled. Take your medications as prescribed. Continue to use your oxygen and trilogy machine nightly. Eat a low-sodium diet. Weigh yourself daily and notify your provider of any weight gain greater than 2 pounds overnight. Return to the emergency department as needed for concerning symptoms. Time Spent: Greater than 30 Minutes Stroke Is this a Stroke Patient?: No Acute Heart Failure - Is this a Heart Failure Patient?: Yes Documentation of LVEF assessment?: Yes LVEF < 40%?: No- if no continue to question #3 3. Anticoagulant therapy for permanect/persistent/paraoxysmal Afib or Aflutter: Yes Follow-up Appointment scheduled within 7 days?: Yes
[2019-05-19] MEDS: ASPIRIN 81 MG TABLET, ENT COATED PO SCH (12:33)
[2019-05-19 14:31] VITALS: BP 146/80
== END 2019-05-19 15:00 | disposition home health service (06) | DRG 291 ==
LOC: ER 11:03 → EH 05-18 02:58 → 3W 05-18 04:50 → OBSVTOIN 05-18 11:20
PROVIDERS: ADMIT Internal Medicine; ATTEND Internal Medicine
PROC: 5A09357 Assistance with Respiratory Ventilation, Less than 24 Consecutive Hours, Continuous Positive Airway Pressure (ICD-10-PCS; principal; 2019-05-17)
PROC: 3E02340 Introduction of Influenza Vaccine into Muscle, Percutaneous Approach (ICD-10-PCS; 2019-05-19)
DX: I13.0 Hypertensive heart and chronic kidney disease with heart failure and stage 1 through stage 4 chronic kidney disease, or unspecified chronic kidney disease (principal); I50.33 Acute on chronic diastolic (congestive) heart failure; J96.20 Acute and chronic respiratory failure, unspecified whether with hypoxia or hypercapnia; I48.20 Chronic atrial fibrillation, unspecified; E66.2 Morbid (severe) obesity with alveolar hypoventilation; G47.33 Obstructive sleep apnea (adult) (pediatric); N18.3 Chronic kidney disease, stage 3 (moderate); I27.20 Pulmonary hypertension, unspecified; E66.01 Morbid (severe) obesity due to excess calories; E11.22 Type 2 diabetes mellitus with diabetic chronic kidney disease; E78.5 Hyperlipidemia, unspecified; E03.9 Hypothyroidism, unspecified; Z79.890 Hormone replacement therapy; Z23 Encounter for immunization; Z79.899 Other long term (current) drug therapy; Z99.81 Dependence on supplemental oxygen; Z79.84 Long term (current) use of oral hypoglycemic drugs; Z91.19 Patient's noncompliance with other medical treatment and regimen; Z86.718 Personal history of other venous thrombosis and embolism; Z87.891 Personal history of nicotine dependence; Z83.3 Family history of diabetes mellitus; Z82.49 Family history of ischemic heart disease and other diseases of the circulatory system; Z88.6 Allergy status to analgesic agent; Z88.8 Allergy status to other drugs, medicaments and biological substances
CPT/HCPCS: 36415; 36600; 71045; 80048; 80053; 81001; 82550; 82553; 82803; 83880; 84484; 85025; 90686; 93005; 93010; 94640; 94660; 96374; 96375; 96376; 99285; G0378; J1940; J2930; J3490; J7620

== ENCOUNTER → 2019-09-25 | Outpatient (CLI) | payer MEDICARE | LOC: OD 09:19 | PROVIDERS: ATTEND Physician Assistant Medical | DX: E87.5 Hyperkalemia (principal) | CPT/HCPCS: 36415; 84132 ==